=== PATIENT | female | born 1945 | race African-American/Black ===

== ENCOUNTER → 2017-03-19 | Outpatient (CLI) | payer MEDICARE, MEDICAID ==
--- NOTE | 2017-03-19 20:27 | BD ---
EXAMINATION TYPE: MG DEXA axial skeleton. DATE OF EXAM: 03/19/2017 2:50 PM COMPARISON: NONE CLINICAL HISTORY: 71-year-old female age-related osteoporosis Height: 61 Weight: 182.8 FRAX RISK QUESTIONS: Alcohol (3 or more units per day): no Family History (Parent hip fracture): no Glucocorticoids (More than 3mos): no (Ex: prednisone, prednisolone, methylprednisolone, dexamethasone, and hydrocortisone). History of Fracture in Adulthood: yes Secondary Osteoporosis: 1. Type 1 Diabetes: no 2. Hyperthyroidism: no 3. Menopause before 45: yes 4. Malnutrition: no 5. Chronic liver disease: no Rheumatoid Arthritis: no Current Tobacco Use: no RISK FACTORS HISTORY OF: Hip Fracture (Right/Left): no Spine Fracture: no History of Wrist Fracture: no Surgery to Spine/Hip(right/left)/Wrist (right/left): no Family History of Osteoporosis: no Active: yes Diet low in dairy products/other sources of calcium: no Postmenopausal woman: hysterectomy age 33 Lost more than 2 inches in height since high school: no Frequent falls: no Adrenal Insufficiency: no MEDICATIONS: Lanoxin enalapril, atenolol, vasucur, Crestor Additional History: EXAM MEASUREMENTS: Bone mineral densitometry was performed using the [employer] System. Bone mineral density as measured about the Lumbar spine is: ----- L1-L4(G/cm2): 1.530 T Score Values are as follows: ----- L2: 1.7 ----- L3: 3.6 ----- L4: 3.9 ----- L1-L4: 2.9 Bone mineral density has: increased 7.1 % since study of: 02.21.2015 Bone mineral density about the R hip (g/cm2): 1.059 Bone mineral density about the L hip (g/cm2): 1.062 T Score values are as follows: -----R Neck: 0.1 -----L Neck: 0.2 -----R Intertrochanter: -0.2 -----L Intertrochanter: -0.3 Bone mineral density has: decreased -5.2 % since study of: 02.21.2015 IMPRESSION: Normal (Values between +1 and -1 indicate normal bone mass). Rescreen in 5 years. NOTE: T-SCORE=SD OF THE YOUNG ADULT MEAN.
== END | disposition home or self-care (01) ==
LOC: RADBDWWP 14:26
PROVIDERS: ATTEND Internal Medicine Geriatric Medicine
DX: M81.0 Age-related osteoporosis without current pathological fracture (principal)
CPT/HCPCS: 77080

== ENCOUNTER → 2017-07-04 | Outpatient (CLI) | payer MEDICARE, MEDICAID ==
[2017-07-04 13:15] LABS: Basophils # (A) 0.1 k/uL (0-0.2); Basophils % (A) 1 %; CH 28.1; CHCM 31.8; Eosinophils # (A) 0.4 k/uL (0-0.7); Eosinophils % (A) 5 %; HCT 46.5 % (34.0-46.0); HDW 2.66; HGB 14.7 gm/dL (11.4-16.0); Luc # (Auto) 0.16; Luc % (Auto) 2; Lymphocytes # (A) 3.6 k/uL (1.0-4.8); Lymphocytes % (A) 40 %; MCHC 31.6 g/dL (31.0-37.0); MCV 88.8 fL (80.0-100.0); Mean Platelet Volume 7.7; Monocytes # (A) 0.4 k/uL (0-1.0); Monocytes % (A) 4 %; Neutrophils # (A) 4.4 k/uL (1.3-7.7); Neutrophils % (A) 49 %; RBC 5.24 m/uL (3.80-5.40); RDW 14.6 % (11.5-15.5); WBC 8.9 k/uL (3.8-10.6); WBC (Perox) 9.28
[2017-07-04 13:44] LABS: ALT 28 U/L (9-52); AST 21 U/L (14-36); Alkaline Phosphatase 71 U/L (38-126); Anion Gap 10 mmol/L; Blood Urea Nitrogen 15 mg/dL (7-17); Calcium 9.8 mg/dL (8.4-10.2); Carbon Dioxide 28 mmol/L (22-30); Chloride 105 mmol/L (98-107); Cholesterol 152 mg/dL (<200); Glucose 92 mg/dL (74-99); HDL Cholesterol 65 mg/dL (40-60); Hemoglobin A1C 6.1 % (4.2-6.1); Non-African American GFR(MDRD) >60 (>60 ml/min/1.73 sqM); Potassium 4.5 mmol/L (3.5-5.1); Sodium 143 mmol/L (137-145); Total Bilirubin 0.5 mg/dL (0.2-1.3); Total Protein 7.7 g/dL (6.3-8.2)
== END | disposition home or self-care (01) ==
LOC: LABWHC1 12:54
PROVIDERS: ATTEND Internal Medicine Geriatric Medicine
DX: E55.9 Vitamin D deficiency, unspecified (principal); E78.00 Pure hypercholesterolemia, unspecified; R79.9 Abnormal finding of blood chemistry, unspecified; R60.9 Edema, unspecified; K21.9 Gastro-esophageal reflux disease without esophagitis; N18.9 Chronic kidney disease, unspecified
CPT/HCPCS: 36415; 80053; 80061; 82306; 83036; 84439; 84443; 85025

== ENCOUNTER → 2017-08-06 | Outpatient (CLI) | payer MEDICARE, MEDICAID ==
--- NOTE | 2017-08-07 10:34 | MM ---
Reason for exam: screening (asymptomatic). Last mammogram was performed 1 year ago. History: Patient is postmenopausal. Benign left mammotome panel of the left breast, August 15, 2005. Benign left mammotome panel of the left breast, July 14, 2005. Benign stereotactic core biopsy of the left breast, July 08, 2004. Excisional biopsy of the right breast, 1995. Excisional biopsy of the right breast, 1994. Excisional biopsy of the right breast, 1989. Core biopsy of the left breast. Took hormonal contraceptives for 2 years beginning at age 18. MG 3D Screening Mammo W/Cad Bilateral CC and MLO view(s) were taken. Prior study comparison: August 06, 2016, bilateral MG 3d screening mammo w/cad. August 04, 2015, bilateral MG screening mammo w CAD. The breast tissue is heterogeneously dense. This may lower the sensitivity of mammography. There is a 1.3cm mass upper central, slightly outer right breast 6-7cm from nipple for which additional views will be performed. ASSESSMENT: Incomplete: need additional imaging evaluation, BI-RAD 0 RECOMMENDATION: Special view mammogram of the right breast. If lesion persists on supplemental views, image directed ultrasound is recommended. [facility] will attempt to contact patient to return for supplemental views and ultrasound if indicated.
== END | disposition home or self-care (01) ==
LOC: RADMAMWWP 13:45
PROVIDERS: ATTEND Surgery
DX: Z12.31 Encounter for screening mammogram for malignant neoplasm of breast (principal)
CPT/HCPCS: 77063; G0202

== ENCOUNTER → 2017-08-14 | Outpatient (CLI) | payer MEDICARE, MEDICAID ==
--- NOTE | 2017-08-14 13:18 | MM ---
Reason for exam: additional evaluation requested from abnormal screening. Last mammogram was performed less than 1 month ago. History: Patient is postmenopausal. Benign left mammotome panel of the left breast, August 15, 2005. Benign left mammotome panel of the left breast, July 14, 2005. Benign stereotactic core biopsy of the left breast, July 08, 2004. Excisional biopsy of the right breast, 1995. Excisional biopsy of the right breast, 1994. Excisional biopsy of the right breast, 1989. Core biopsy of the left breast. Took hormonal contraceptives for 2 years beginning at age 18. Physical Findings: Nurse did not find any significant physical abnormalities on exam. MG 3D Work Up W/Cad RT Spot compression CC, spot compression MLO, and LM view(s) were taken of the right breast. Prior study comparison: August 06, 2017, bilateral MG 3d screening mammo w/cad. August 06, 2016, bilateral MG 3d screening mammo w/cad. The breast tissue is heterogeneously dense. This may lower the sensitivity of mammography. Finding #1: Architectural distortion in the right breast consistent with previous biopsy. Finding #2: There are typically benign calcifications in the right breast. These results were verbally communicated with the patient and result sheet given to the patient on 08/14/17. ASSESSMENT: Incomplete: need additional imaging evaluation, BI-RAD 0 RECOMMENDATION: Ultrasound of the right breast.
--- NOTE | 2017-08-14 13:22 | USB ---
Reason for exam: additional evaluation requested from abnormal screening. History: Patient is postmenopausal. Benign left mammotome panel of the left breast, August 15, 2005. Benign left mammotome panel of the left breast, July 14, 2005. Benign stereotactic core biopsy of the left breast, July 08, 2004. Excisional biopsy of the right breast, 1995. Excisional biopsy of the right breast, 1994. Excisional biopsy of the right breast, 1989. Core biopsy of the left breast. Took hormonal contraceptives for 2 years beginning at age 18. US Breast Workup Limited RT Right breast ultrasound demonstrates a 11 x 9 x 6mm shadowing solid calcified mass at 12-1 o'clock and a 8 x 7 x 6mm irregular, solid, hypoechoic lesion at 10-11 o'clock, likely scar related, does not account for mass like area on tomosynthesis images, attempt stereo right upper outer quadrant. These results were verbally communicated with the patient and result sheet given to the patient on 08/14/17. ASSESSMENT: Suspicious, BI-RAD 4 RECOMMENDATION: Stereotactic core biopsy of the right breast. Called with mammographic findings and has scheduled an appointment for the patient for 08/17/17 at 2:[address] Edgar. PRELIMINARY REPORT CALLED AND FAXED TO DR. EDGAR ON 08/14/17.
== END ==
LOC: RADMAMWWP 11:03
PROVIDERS: ATTEND Surgery
DX: R92.8 Other abnormal and inconclusive findings on diagnostic imaging of breast (principal)
CPT/HCPCS: 76642; G0206; G0279

== ENCOUNTER → 2017-08-21 | Day surgery (SDC) | payer MEDICARE, MEDICAID ==
[2017-08-21 08:49] VITALS: RESP 12; TEMP 98.3
[2017-08-21 09:54] VITALS: BP 135/81; PULSE 77
--- NOTE | 2017-08-21 11:04 | MM ---
EXAMINATION TYPE: MG stereo VAD BX RT DATE OF EXAM: 08/21/2017 COMPARISON: NONE CLINICAL HISTORY: Personal history of 3 excisional biopsies on the right. TECHNIQUE: Stereotactic guided core biopsy of right breast. FINDINGS: The procedure of stereotactic guided core biopsy was explained to the patient. Benefits, alternatives, and risks were discussed. An informed consent was then obtained. The shortness pathway for biopsy was chosen. Shortness pathway was lateral medial approach. 10 cc of lidocaine without epinephrine was utilized to anesthetize the skin surface. Needle was advanced to the appropriate coordinates. Additional 10 cc of lidocaine with epinephrine was utilized to anesthetize the site of biopsy site after prefire images were obtained. A vacuum assisted biopsy gun was used to obtain 12 core samples. The patient tolerated the procedure well without any immediate complication. The patient was kept in the radiology department for short stay after the procedure and then discharged home in stable condition. Targeted calcifications are identified in specimen mammogram. Post biopsy mammogram shows the clip to appear in satisfactory position relative to the targeted area of concern on the preprocedure images. IMPRESSION: SUCCESSFUL, UNCOMPLICATED STEREOTACTIC GUIDED CORE BIOPSY OF THE LOW SUSPICION AREA OF CONCERN IN THE RIGHT BREAST, FULL PATHOLOGY RESULTS TO FOLLOW. Pathology Results: High Risk BREAST, RIGHT, CORE BIOPSY: FIBROCYSTIC CHANGES INCLUDING RADIAL SCAR/COMPLEX SCLEROSING LESION, FIBROSIS, CHRONIC INFLAMMATION, AND SMALL CYSTS. FOCAL SCAR. Recommendation Surgical consult of the right breast. (radial scar) MTDD
== END ==
LOC: RADMAMWWP 08:27
PROVIDERS: ATTEND Student in an Organized Health Care Education/Training Program
DX: N60.31 Fibrosclerosis of right breast (principal); N60.11 Diffuse cystic mastopathy of right breast; L90.5 Scar conditions and fibrosis of skin; Z88.2 Allergy status to sulfonamides; Z88.8 Allergy status to other drugs, medicaments and biological substances
CPT/HCPCS: 88305; 19081; A4648; J2001

== ENCOUNTER → 2018-09-10 | Outpatient (CLI) | payer MEDICARE, MEDICAID ==
[2018-09-10 11:57] LABS: Basophils # (A) 0.1 k/uL (0-0.2); Basophils % (A) 1 %; Eosinophils # (A) 0.3 k/uL (0-0.7); Eosinophils % (A) 5 %; HGB 13.1 gm/dL (11.4-16.0); Hypochromasia Slight; Lymphocytes # (A) 2.9 k/uL (1.0-4.8); Lymphocytes % (A) 44 %; MCH 28.6 pg (25.0-35.0); MCV 89.4 fL (80.0-100.0); Mean Platelet Volume 6.8; Monocytes # (A) 0.3 k/uL (0-1.0); Monocytes % (A) 4 %; Neutrophils % (A) 45 %; Platelet Count 221 k/uL (150-450); RBC 4.59 m/uL (3.80-5.40); RDW 13.4 % (11.5-15.5); WBC 6.7 k/uL (3.8-10.6)
[2018-09-10 12:25] LABS: ALT 20 U/L (9-52); AST 23 U/L (14-36); Albumin 3.7 g/dL (3.5-5.0); Alkaline Phosphatase 54 U/L (38-126); Anion Gap 6 mmol/L; Blood Urea Nitrogen 10 mg/dL (7-17); Calcium 9.7 mg/dL (8.4-10.2); Carbon Dioxide 28 mmol/L (22-30); Chloride 107 mmol/L (98-107); Cholesterol 145 mg/dL (<200); Glucose 91 mg/dL (74-99); HDL Cholesterol 65 mg/dL (40-60); LDL Cholesterol,Calculated 67 mg/dL (0-99); Potassium 4.5 mmol/L (3.5-5.1); Sodium 141 mmol/L (137-145); Total Bilirubin 0.3 mg/dL (0.2-1.3); Total Protein 7.1 g/dL (6.3-8.2); Triglycerides 65 mg/dL (<150)
[2018-09-10 12:38] LABS: T4, Free (Free Thyroxine) 1.14 ng/dL (0.78-2.19)
== END | disposition home or self-care (01) ==
LOC: LABWHC1 11:04
PROVIDERS: ATTEND Internal Medicine Geriatric Medicine
DX: I42.8 Other cardiomyopathies (principal); E78.00 Pure hypercholesterolemia, unspecified
CPT/HCPCS: 36415; 80053; 80061; 84439; 84443; 85025

== ENCOUNTER → 2018-09-10 | Outpatient (CLI) | payer MEDICARE, MEDICAID ==
--- NOTE | 2018-09-10 11:36 | MM ---
Reason for exam: additional evaluation requested from prior study. Last mammogram was performed 6 months ago. History: Patient is postmenopausal and has history of high-risk lesion on a previous biopsy at age 72. Benign MG pre op needle loc RT of the right breast, September 18, 2017. High risk MG stereo VAD BX RT of the right breast, August 21, 2017. Benign left mammotome panel of the left breast, August 15, 2005. Benign left mammotome panel of the left breast, July 14, 2005. Benign stereotactic core biopsy of the left breast, July 08, 2004. Excisional biopsy of the right breast, 1995. Excisional biopsy of the right breast, 1994. Excisional biopsy of the right breast, 1989. Core biopsy of the left breast. Took hormonal contraceptives for 2 years beginning at age 18. Physical Findings: Nurse Summary: 0.5cm nodule in the left breast at the nipple (nurse dw). MG 3D Diag Mammo W/Cad INDER Bilateral CC and MLO view(s) were taken. Prior study comparison: March 04, 2018, right breast MG 3d diag mammo w/cad RT. August 14, 2017, right breast MG 3d work up w/cad RT. The breast tissue is heterogeneously dense. This may lower the sensitivity of mammography. Stable benign calcifications. Stable post biopsy changes in the right breast. Stable nodularity left retroareolar region since 2011. No significant new findings when compared with previous films. These results were verbally communicated with the patient and result sheet given to the patient on 09/10/18. ASSESSMENT: Benign, BI-RAD 2 RECOMMENDATION: Follow-up diagnostic mammogram of both breasts in 1 year. Manage patient on a clinical basis.
== END | disposition home or self-care (01) ==
LOC: RADMAMWWP 10:05
PROVIDERS: ATTEND Student in an Organized Health Care Education/Training Program
DX: R92.8 Other abnormal and inconclusive findings on diagnostic imaging of breast (principal)
CPT/HCPCS: 77066; G0279; 77062

== ENCOUNTER → 2019-03-14 | Outpatient (CLI) | payer MEDICARE, MEDICAID ==
--- NOTE | 2019-03-14 16:51 | BD ---
EXAMINATION TYPE: Axial Bone Density DATE OF EXAM: 03/14/2019 COMPARISON: NONE CLINICAL HISTORY: Height: 4 FT 11 1/2 IN Weight: 161 FRAX RISK QUESTIONS: History of Fracture in Adulthood: YES Secondary Osteoporosis: 3. Menopause before 45: YES RISK FACTORS HISTORY OF: Surgery to Spine/Hip(right/left)/Wrist (right/left): RT WRIST When: IN THE 80'S Active: YES Postmenopausal woman: PART HYST AGE 33 Lost more than 2 inches in height since high school: YES MEDICATIONS: Additional Medications: LANOXIN,ENALAPRIL, ATENOLOL, CRESTOR, VESICARE,EYE DROPS FOR GLAUCOMA Additional History: EXAM MEASUREMENTS: Bone mineral densitometry was performed using the [employer] System. Bone mineral density as measured about the Lumbar spine is: ----- L1-L4(G/cm2): 1.515 T Score Values are as follows: ----- L2: 1.2 ----- L3: 4.4 ----- L4: 3.3 ----- L1-L4: 2.8 Bone mineral density has: DECREASED -1.1 % since study of: 2017 Bone mineral density about the R hip (g/cm2): 1.033 Bone mineral density about the L hip (g/cm2): 1.012 T Score values are as follows: -----R Neck: 0.0 -----L Neck: -0.2 -----R Total: 0.0 -----L Total: -0.1 Bone mineral density has: DECREASED -5.3 % since study of: 2016 IMPRESSION: Normal (Values between +1 and -1 indicate normal bone mass). Consider repeating this study in 5 year s or sooner if there is some new clinical indication. NOTE: T-SCORE=SD OF THE YOUNG ADULT MEAN.
== END ==
LOC: RADBDWWP 14:16
PROVIDERS: ATTEND Internal Medicine Geriatric Medicine
DX: M81.0 Age-related osteoporosis without current pathological fracture (principal)
CPT/HCPCS: 77080

== ENCOUNTER → 2019-03-22 | Outpatient (CLI) | payer MEDICARE, MEDICAID ==
[2019-03-22 15:34] LABS: Basophils # (A) 0.1 k/uL (0-0.2); Basophils % (A) 1 %; Eosinophils # (A) 0.4 k/uL (0-0.7); Eosinophils % (A) 5 %; HGB 13.9 gm/dL (11.4-16.0); Lymphocytes # (A) 3.2 k/uL (1.0-4.8); Lymphocytes % (A) 43 %; MCH 28.5 pg (25.0-35.0); MCHC 31.7 g/dL (31.0-37.0); MCV 89.8 fL (80.0-100.0); Mean Platelet Volume 7.4; Monocytes # (A) 0.3 k/uL (0-1.0); Monocytes % (A) 5 %; Neutrophils # (A) 3.3 k/uL (1.3-7.7); Neutrophils % (A) 45 %; Platelet Count 220 k/uL (150-450); RDW 14.4 % (11.5-15.5); WBC 7.4 k/uL (3.8-10.6)
[2019-03-22 17:52] LABS: Erythrocyte Sedimentation Rate 23 mm/hr (0-20)
[2019-03-23 01:02] LABS: Albumin 4.4 g/dL (3.80-4.90); Albumin/Globulin Ratio 1.83 (1.60-3.17); Anion Gap 9.6 mmol/L (4.00-12.00); Calcium 9.7 mg/dL (8.7-10.3); Carbon Dioxide 26.4 mmol/L (21.6-31.8); Globulin 2.4 g/dL (1.6-3.3); LDL Cholesterol,Calculated 83.2 mg/dL (0.0-131.0); Potassium 4.4 mmol/L (3.5-5.5); Total Bilirubin 0.5 mg/dL (0.2-1.2); Total Protein 6.8 g/dL (6.2-8.2); VLDL Calculation 13.8 mg/dL (5.00-40.00)
[2019-03-23 01:10] LABS: T4, Free (Free Thyroxine) 1.1 ng/dL (0.80-1.80)
[2019-03-23 01:12] LABS: Hemoglobin A1C 5.7 % (4.0-6.0)
== END ==
LOC: LABWHC1 14:54
PROVIDERS: ATTEND Internal Medicine Geriatric Medicine
DX: Z00.00 Encounter for general adult medical examination without abnormal findings (principal); N18.9 Chronic kidney disease, unspecified; I12.9 Hypertensive chronic kidney disease with stage 1 through stage 4 chronic kidney disease, or unspecified chronic kidney disease; I42.9 Cardiomyopathy, unspecified; R70.0 Elevated erythrocyte sedimentation rate; R79.9 Abnormal finding of blood chemistry, unspecified
CPT/HCPCS: 36415; 80053; 80061; 83036; 84439; 84443; 85025; 85652

== ENCOUNTER → 2019-09-16 | Outpatient (CLI) | payer MEDICARE, MEDICAID ==
--- NOTE | 2019-09-16 13:55 | MM ---
Reason for exam: additional evaluation requested from prior study. Last mammogram was performed 1 year ago. History: Patient is postmenopausal and has history of high-risk lesion on a previous biopsy at age 72. Benign MG pre op needle loc RT of the right breast, September 18, 2017. High risk MG stereo VAD BX RT of the right breast, August 21, 2017. Benign left mammotome panel of the left breast, August 15, 2005. Benign left mammotome panel of the left breast, July 14, 2005. Benign stereotactic core biopsy of the left breast, July 08, 2004. Excisional biopsy of the right breast, 1995. Excisional biopsy of the right breast, 1994. Excisional biopsy of the right breast, 1989. Core biopsy of the left breast. Took hormonal contraceptives for 2 years beginning at age 18. Physical Findings: Nurse did not find any significant physical abnormalities on exam. MG 3D Diag Mammo W/Cad INDER Bilateral CC, MLO, and XCCL view(s) were taken. Prior study comparison: September 10, 2018, bilateral MG 3d diag mammo w/cad INDER. March 04, 2018, right breast MG 3d diag mammo w/cad RT. The breast tissue is heterogeneously dense. This may lower the sensitivity of mammography. Finding #1: Architectural distortion in the upper outer quadrant, posterior middle position of the right breast. Finding #2: There are typically benign round, linear calcifications in the left breast. Previous mammotome biopsy in the left breast x 2. There is no discrete abnormality. These results were verbally communicated with the patient and result sheet given to the patient on 09/16/19. ASSESSMENT: Benign, BI-RAD 2 RECOMMENDATION: Routine screening mammogram of both breasts in 1 year.
== END | disposition home or self-care (01) ==
LOC: RADMAMWWP 12:52
PROVIDERS: ATTEND Student in an Organized Health Care Education/Training Program
DX: R92.8 Other abnormal and inconclusive findings on diagnostic imaging of breast (principal)
CPT/HCPCS: 77066; G0279; 77062

== ENCOUNTER → 2020-09-17 | Outpatient (CLI) | payer MEDICARE, MEDICAID ==
--- NOTE | 2020-09-17 16:20 | XR ---
EXAMINATION TYPE: XR chest 2V DATE OF EXAM: 09/17/2020 COMPARISON: NONE HISTORY: Wheezing. Bronchitis. TECHNIQUE: Frontal and lateral views of the chest are obtained. FINDINGS: There is no focal air space opacity, pleural effusion, or pneumothorax seen. The cardiac silhouette size is upper limits of normal. Metallic anchor right humeral head level is present. IMPRESSION: No suspicious acute pulmonary process.
== END | disposition home or self-care (01) ==
LOC: LABWHC1 15:55
PROVIDERS: ATTEND Internal Medicine Geriatric Medicine
DX: R06.2 Wheezing (principal)
CPT/HCPCS: 71046

== ENCOUNTER → 2020-09-19 | Outpatient (CLI) | payer MEDICARE, MEDICAID ==
--- NOTE | 2020-09-21 12:30 | MM ---
Reason for exam: screening (asymptomatic). Last mammogram was performed 1 year ago. History: Patient is postmenopausal and has history of high-risk lesion on a previous biopsy at age 72. Benign MG pre op needle loc RT of the right breast, September 18, 2017. High risk MG stereo VAD BX RT of the right breast, August 21, 2017. Benign left mammotome panel of the left breast, August 15, 2005. Benign left mammotome panel of the left breast, July 14, 2005. Benign stereotactic core biopsy of the left breast, July 08, 2004. Excisional biopsy of the right breast, 1995. Excisional biopsy of the right breast, 1994. Excisional biopsy of the right breast, 1989. Core biopsy of the left breast. Took hormonal contraceptives for 2 years beginning at age 18. Physical Findings: A clinical breast exam by your physician is recommended on an annual basis and results should be correlated with mammographic findings. MG 3D Screening Mammo W/Cad Bilateral CC and MLO view(s) were taken. Prior study comparison: September 16, 2019, bilateral MG 3d diag mammo w/cad INDER. September 10, 2018, bilateral MG 3d diag mammo w/cad INDER. The breast tissue is heterogeneously dense. This may lower the sensitivity of mammography. Finding #1: Chronic architectural distortion in the left breast. Finding #2: There are calcifications in both breasts. Asymmetric breast tissue post lumpectomy change in the right breast. No significant changes in finding since September 16, 2019 and September 10, 2018. ASSESSMENT: Benign, BI-RAD 2 RECOMMENDATION: Routine screening mammogram of both breasts in 1 year.
== END | disposition home or self-care (01) ==
LOC: RADMAMWWP 09:30
PROVIDERS: ATTEND Student in an Organized Health Care Education/Training Program
DX: Z12.31 Encounter for screening mammogram for malignant neoplasm of breast (principal)
CPT/HCPCS: 77063; 77067

== ENCOUNTER 2020-12-16 13:48 | Emergency (ER) | payer MEDICARE, MEDICAID ==
[2020-12-16] MEDS ORDERED: ONDANSETRON 4 MG/2 ML VIAL IVP STA (14:19)
[2020-12-16] MEDS ORDERED: HYDROmorphone 0.5 MG/0.5 ML SYRINGE IVP STA (14:19)
--- NOTE | 2020-12-16 14:23 | ED ---
URI HPI - General Chief Complaint: Upper Respiratory Infection Stated Complaint: Wheezing, Hx Bronchitis Time Seen by Provider: 12/16/20 14:08 Source: patient Mode of arrival: ambulatory Limitations: no limitations - History of Present Illness Initial Comments: Patient presents the ED complaining of having a cough and wheezing for the past 4 months or so. Patient states that she has seen her primary care doctor (Dr. Pearson) multiple times for these symptoms, and she states that she has been treated with antibiotics, courses of steroids and an inhaler/nebulizer treatments. She states that her cough is intermittently productive, and she states that she is mildly dyspneic at times. 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 She denies having any pain, fever or chills, headache, sore throat, chest pain or pressure, hemoptysis, palpitations, dizziness, nausea/vomiting/diarrhea, abdominal pain, decreased urine output, leg or calf swelling or pain, or any other symptoms or complaints. Patient states that her wheezing/dyspnea does improved with puffs of her albuterol inhaler. - Related Data Home Medications Medication Instructions Recorded Confirmed Enalapril [Vasotec] 5 mg PO DAILY 07/16/14 12/16/20 Multivitamins, Thera [Multivitamin] 1 tab PO DAILY@1200 07/16/14 12/16/20 Rosuvastatin Calcium [Crestor] 5 mg PO DAILY 07/16/14 12/16/20 Solifenacin Succinate [Vesicare] 10 mg PO HS 07/16/14 12/16/20 atenoloL [Tenormin] 25 mg PO BID 07/16/14 12/16/20 Latanoprost Ophth [Xalatan 0.005%] 1 drops BOTH EYES 08/17/17 12/16/20 Henderson-3 Fatty Acids [Henderson-3] 1,000 mg PO DAILY 09/15/17 12/16/20 Albuterol Inhaler [Ventolin Hfa 2 puff INHALATION RT-Q4H PRN 12/16/20 12/16/20 Inhaler] Digoxin [Lanoxin] 125 mcg PO DAILY 12/16/20 12/16/20 Esomeprazole Magnesium [NexIUM] 20 mg PO DAILY 12/16/20 12/16/20 Furosemide [Lasix] 20 mg PO DAILY 12/16/20 12/16/20 Phenylephrine/Dm/Acetaminop/GG 30 ml PO Q12H 12/16/20 12/16/20 [Mucinex Fast-Max Cold-Flu Liq] Previous Rx's Medication Instructions Recorded predniSONE [Deltasone] 20 mg PO BID #10 tab 12/16/20 Allergies Allergy/AdvReac Type Severity Reaction Status Date / Time benzonatate AdvReac Nausea & Verified 12/16/20 15:22 Vomiting dexamethasone AdvReac Nausea & Verified 12/16/20 15:22 Vomiting doxycycline AdvReac Nausea & Verified 12/16/20 15:22 Vomiting pravastatin sodium AdvReac Unknown Verified 12/16/20 15:22 [From Pravachol] Sulfa (Sulfonamide AdvReac Unknown Verified 12/16/20 15:22 Antibiotics) Review of Systems ROS Statement: Those systems with pertinent positive or pertinent negative responses have been documented in the HPI. ROS Other: All systems not noted in ROS Statement are negative. Past Medical History Past Medical History: GERD/Reflux, Osteoarthritis (OA) Additional Past Medical History / Comment(s): cardiomyopathy, elevated heart rate, overactive bladder, glaucoma, hx elevated sed rate,lt knee pain-arthritis and elmore cyst History of Any Multi-Drug Resistant Organisms: None Reported Past Surgical History: Appendectomy, Section, Hysterectomy, Orthopedic Surgery Additional Past Surgical History / Comment(s): 3 left breast biopsies, 3 needle loc on right breast- pt states all benign. lelo rotator cuff repair, lelo. hammer toe and bunionectomy, trigger finger release lelo ring fingers, meniscus repair lelo knees, carpal tunnel lelo, rt thumb fusion, lt ankle surgery, D&C, bilateral cataract surgery and laser surgery Past Anesthesia/Blood Transfusion Reactions: No Reported Reaction Past Psychological History: No Psychological Hx Reported Smoking Status: Former smoker Past Alcohol Use History: None Reported Past Drug Use History: None Reported - Past Family History Mother Family Medical History: No Reported History General Exam Limitations: no limitations General appearance: alert, in no apparent distress Head exam: Present: atraumatic, normocephalic Eye exam: Present: normal appearance, EOMI ENT exam: Present: normal oropharynx, mucous membranes moist Neck exam: Present: other (Trachea is in midline) Respiratory exam: Present: other (Few expiratory wheezes bilaterally; equal breath sounds bilaterally). Absent: respiratory distress, rales, rhonchi, stridor Cardiovascular Exam: Present: regular rate, normal rhythm, normal heart sounds, other (Normal radial pulses bilaterally) GI/Abdominal exam: Present: soft. Absent: distended, tenderness, guarding Extremities exam: Present: other (Negative Homans sign bilaterally). Absent: tenderness, pedal edema, calf tenderness Neurological exam: Present: alert, oriented X3. Absent: motor sensory deficit Psychiatric exam: Present: normal affect, normal mood Skin exam: Present: warm, dry, intact, normal color Course Vital Signs 12/16/20 12/16/20 12/16/20 13:57 14:15 15:19 Temperature 98.8 F Pulse Rate 97 92 Respiratory 18 20 16 Rate Blood Pressure 158/87 O2 Sat by Pulse 96 Oximetry 12/16/20 15:29 Temperature Pulse Rate 93 Respiratory 16 Rate Blood Pressure O2 Sat by Pulse Oximetry - Reevaluation(s) Reevaluation #1: 12/16/20 15:47 Patient's wheezing has improved on examination. Patient remains alert and breathing comfortably with a normal room air oxygen saturation. Patient denies development of any new symptoms while in the ED. Patient is aware of her test results, and she feels comfortable being discharged home at this time. Patient was counseled about wheezing/dyspnea/cough, and she was clearly explained return and follow-up instructions. Patient was instructed to have a low threshold for return to the ED should her symptoms worsen. Patient was instructed to follow up closely with her primary care provider, as well as her lamp shade joiner. Medical Decision Making - Medical Decision Making Patient's Covid test is negative. Patient's chest x-ray is unremarkable. Patient reports having symptoms for the past 4 months or so, and she states that she has been treated with multiple courses of steroids and antibiotics over that time. I think that an infectious etiology is unlikely given the length of the patient's symptoms. Patient was instructed to, and agrees to, follow-up closely with her primary care provider, as well as her lamp shade joiner for further evaluation. Will provide the patient with a prescription for a short course of prednisone given her wheezing on examination today and concern for reactive ai rway disease. Patient was also instructed to continue using her albuterol inhaler as needed/chest prescribed. Patient feels comfortable with this plan. - Lab Data Lab Results 12/16/20 Range/Units 14:43 Coronavirus (PCR) Not Detected (Not Detectd) - EKG Data -: EKG Interpreted by Me EKG Comments: Sinus rhythm with borderline first-degree AV block, ventricular rate of 93 bpm, no ectopy, [place] interval of 208 ms, normal QRS duration, normal QT interval, leftward axis, no ST or T-wave abnormality - Radiology Data Radiology results: image reviewed (Chest x-ray shows no acute cardiopulmonary disease) Disposition Clinical Impression: Wheezing, Dyspnea, Cough Disposition: HOME SELF-CARE Condition: Stable Instructions (If sedation given, give patient instructions): Chronic Cough (ED), Wheezing (ED), Dyspnea (ED) Additional Instructions: Return to the ER immediately should you develop increased shortness of breath, chest pain, a fever, feeling dizzy or faint, or new or worsening symptoms. Follow up closely with your primary care provider, as well as your lamp shade joiner. Prescriptions: predniSONE [Deltasone] 20 mg PO BID #10 tab Is patient prescribed a controlled substance at d/c from ED?: No Referrals: Magnus Pearson MD [Primary Care Provider] - 1-2 days Time of Disposition: 15:49
[2020-12-16] MEDS ORDERED: IPRATROPIUM-ALBUTEROL 3 ML NEB INHALATION STA (14:37)
[2020-12-16] MEDS ORDERED: predniSONE 50 MG TAB PO STA (14:37)
--- NOTE | 2020-12-16 15:33 | XR ---
EXAMINATION TYPE: XR chest 2V DATE OF EXAM: 12/16/2020 COMPARISON: 09/17/2020 HISTORY: Cough. Bronchitis. TECHNIQUE: FINDINGS: Heart and mediastinum are within normal limits. Lungs are clear of infiltrate. There is no heart failure. There are no hilar masses. Costophrenic angles are clear. There are chest leads. IMPRESSION: No active cardiopulmonary disease. Normal heart. No change.
[2020-12-16 16:04] VITALS: BP 155/77; PULSE 91; RESP 18; TEMP 97.9
== END 2020-12-16 16:04 | disposition home or self-care (01) ==
LOC: EC 13:48
DX: R06.2 Wheezing (principal); R05 Cough; R06.00 Dyspnea, unspecified; Z20.822 Contact with and (suspected) exposure to COVID-19; K21.9 Gastro-esophageal reflux disease without esophagitis; Z79.899 Other long term (current) drug therapy; Z88.1 Allergy status to other antibiotic agents; Z88.2 Allergy status to sulfonamides; Z88.8 Allergy status to other drugs, medicaments and biological substances; Z87.891 Personal history of nicotine dependence; Z90.49 Acquired absence of other specified parts of digestive tract; Z90.710 Acquired absence of both cervix and uterus; Z98.42 Cataract extraction status, left eye; Z98.41 Cataract extraction status, right eye
CPT/HCPCS: 94640; 93005; 87635; 71046; 99285; J7512

== ENCOUNTER 2021-01-18 08:55 | Emergency (ER) | payer MEDICARE, MEDICAID ==
--- NOTE | 2021-01-18 09:21 | ED ---
General Adult HPI - General Chief complaint: Arrhythmia/Palpitations Stated complaint: high heart rate Time Seen by Provider: 01/18/21 09:01 Source: patient, RN notes reviewed Mode of arrival: ambulatory Limitations: no limitations - History of Present Illness Initial comments: Patient is a pleasant 75-year-old female presenting to the emergency Department with complaints palpitations. Onset of symptoms was this morning. Patient was started on new inhaler a few days ago. Patient does have history of similar symptoms previously with different inhalers. Usually the only one she can use his albuterol. Patient states with certain on this secondary to bronchitis. Patient states her bronchitis symptoms have resolved. No cough. No dyspnea. No chest pain. No leg pain or leg swelling. Patient states it feels like more her heart is going little bit faster little bit slower at times. Patient states normally her heart rate is 70. Heart rate has been up to 105 at home. - Related Data Home Medications Medication Instructions Recorded Confirmed Enalapril [Vasotec] 5 mg PO DAILY 07/16/14 01/18/21 Multivitamins, Thera [Multivitamin] 1 tab PO BID 07/16/14 01/18/21 Rosuvastatin Calcium [Crestor] 5 mg PO DAILY 07/16/14 01/18/21 Solifenacin Succinate [Vesicare] 10 mg PO HS 07/16/14 01/18/21 atenoloL [Tenormin] 25 mg PO BID 07/16/14 01/18/21 Latanoprost Ophth [Xalatan 0.005%] 1 drops BOTH EYES HS 08/17/17 01/18/21 [place]-3 Fatty Acids [[place]-3] 1,000 mg PO BID 09/15/17 01/18/21 Albuterol Inhaler [Ventolin Hfa 2 puff INHALATION RT-Q4H PRN 12/16/20 01/18/21 Inhaler] Digoxin [Lanoxin] 125 mcg PO DAILY 12/16/20 01/18/21 Esomeprazole Magnesium [NexIUM] 20 mg PO DAILY PRN 12/16/20 01/18/21 Furosemide [Lasix] 20 mg PO DAILY 12/16/20 01/18/21 Fluticasone Propion/Salmeterol 1 puff INHALATION RT-DAILY 01/18/21 01/18/21 [Fluticasone-Salmeterol 500-50] Naproxen Sodium [Aleve] 220 mg PO DAILY PRN 01/18/21 01/18/21 predniSONE See Taper PO DAILY 01/18/21 01/18/21 Allergies Allergy/AdvReac Type Severity Reaction Status Date / Time benzonatate AdvReac Nausea & Verified 01/18/21 09:43 Vomiting dexamethasone AdvReac Nausea & Verified 01/18/21 09:43 Vomiting doxycycline AdvReac Nausea & Verified 01/18/21 09:43 Vomiting pravastatin sodium AdvReac Unknown Verified 01/18/21 09:43 [From Pravachol] Sulfa (Sulfonamide AdvReac Unknown Verified 01/18/21 09:43 Antibiotics) Review of Systems ROS Statement: Those systems with pertinent positive or pertinent negative responses have been documented in the HPI. ROS Other: All systems not noted in ROS Statement are negative. Constitutional: Denies: fever Eyes: Denies: eye pain ENT: Denies: ear pain Respiratory: Reports: as per HPI. Denies: cough Cardiovascular: Reports: as per HPI, palpitations. Denies: chest pain Endocrine: Denies: fatigue Gastrointestinal: Denies: abdominal pain Genitourinary: Denies: dysuria Musculoskeletal: Denies: back pain Skin: Denies: rash Neurological: Denies: weakness Past Medical History Past Medical History: GERD/Reflux, Osteoarthritis (OA) Additional Past Medical History / Comment(s): cardiomyopathy, elevated heart rate, overactive bladder, glaucoma, hx elevated sed rate,lt knee pain-arthritis and elmore cyst History of Any Multi-Drug Resistant Organisms: None Reported Past Surgical History: Appendectomy, Section, Hysterectomy, Orthopedic Surgery Additional Past Surgical History / Comment(s): 3 left breast biopsies, 3 needle loc on right breast- pt states all benign. lelo rotator cuff repair, lelo. hammer toe and bunionectomy, trigger finger release lelo ring fingers, meniscus repair lelo knees, carpal tunnel lelo, rt thumb fusion, lt ankle surgery, D&C, bilateral cataract surgery and laser surgery Past Anesthesia/Blood Transfusion Reactions: No Reported Reaction Past Psychological History: No Psychological Hx Reported Smoking Status: Former smoker Past Alcohol Use History: None Reported Past Drug Use History: None Reported - Past Family History Mother Family Medical History: No Reported History General Exam Limitations: no limitations General appearance: alert, in no apparent distress Head exam: Present: normocephalic Eye exam: Present: normal appearance Neck exam: Present: normal inspection Respiratory exam: Present: normal lung sounds bilaterally Cardiovascular Exam: Present: regular rate, normal rhythm Expanded Peripheral pulses: 2+: Radial (R), Radial (L), Posterior Tibialis (R), Posterior Tibialis (L) GI/Abdominal exam: Present: soft. Absent: tenderness Extremities exam: Present: normal inspection. Absent: pedal edema, calf tenderness Neurological exam: Present: alert Psychiatric exam: Present: normal affect, normal mood Skin exam: Present: normal color Course Vital Signs 01/18/21 01/18/21 01/18/21 08:57 09:28 10:46 Temperature 98 F 98.0 F 98.0 F Pulse Rate 97 84 79 Respiratory 22 16 16 Rate Blood Pressure 184/90 169/86 160/82 O2 Sat by Pulse 98 98 100 Oximetry 01/18/21 12:39 Temperature Pulse Rate 85 Respiratory 18 Rate Blood Pressure 151/76 O2 Sat by Pulse 99 Oximetry EKG Findings - EKG Comments: EKG Findings:: Sinus rhythm with a rate of 92. PVCs present. CT 182. QRS 120. QT 356. QTc 440. Left axis. LVH with repolarization change. Medical Decision Making - Medical Decision Making Patient reevaluated and resting comfortably in bed, improved with Ativan. Patient is comfortable with discharge home. Case was earlier discussed with Dr. Pearson who did evaluate his patient in the emergency department and felt like the patient could go home as well. - Lab Data Result diagrams: 01/18/21 09:27 01/18/21 09:27 Lab Results 01/18/21 01/18/21 01/18/21 Range/Units 09:27 09:27 09:27 WBC 14.0 H (3.8-10.6) k/uL RBC 5.01 (3.80-5.40) m/uL Hgb 14.7 (11.4-16.0) gm/dL Hct 44.3 (34.0-46.0) % MCV 88.5 (80.0-100.0) fL MCH 29.4 (25.0-35.0) pg MCHC 33.2 (31.0-37.0) g/dL RDW 13.1 (11.5-15.5) % Plt Count 339 (150-450) k/uL MPV 6.8 Neutrophils % 69 % Lymphocytes % 24 % Monocytes % 4 % Eosinophils % 1 % Basophils % 0 % Neutrophils # 9.7 H (1.3-7.7) k/uL Lymphocytes # 3.3 (1.0-4.8) k/uL Monocytes # 0.6 (0-1.0) k/uL Eosinophils # 0.2 (0-0.7) k/uL Basophils # 0.1 (0-0.2) k/uL PT 10.1 (9.0-12.0) sec INR 0.9 (<1.2) APTT 20.7 L (22.0-30.0) sec D-Dimer 4.04 H (<0.60) mg/L FEU Sodium 139 (137-145) mmol/L Potassium 4.5 (3.5-5.1) mmol/L Chloride 102 (98-107) mmol/L Carbon Dioxide 27 (22-30) mmol/L Anion Gap 10 mmol/L BUN 19 H (7-17) mg/dL Creatinine 0.72 (0.52-1.04) mg/dL Est GFR (CKD-EPI)AfAm >90 (>60 ml/min/1.73 sqM) Est GFR (CKD-EPI)NonAf 84 (>60 ml/min/1.73 sqM) Glucose 109 H (74-99) mg/dL Calcium 10.2 (8.4-10.2) mg/dL Magnesium 2.0 (1.6-2.3) mg/dL Total Bilirubin 0.4 (0.2-1.3) mg/dL AST 26 (14-36) U/L ALT 19 (4-34) U/L Alkaline Phosphatase 64 (38-126) U/L Troponin I (0.000-0.034) ng/mL Total Protein 8.0 (6.3-8.2) g/dL Albumin 4.3 (3.5-5.0) g/dL TSH 1.250 (0.465-4.680) mIU/L Free T4 1.13 (0.78-2.19) ng/dL Free T3 pg/mL 3.1 (2.8-5.3) pg/ml Digoxin 0.5 ng/mL 01/18/21 Range/Units 09:27 WBC (3.8-10.6) k/uL RBC (3.80-5.40) m/uL Hgb (11.4-16.0) gm/dL Hct (34.0-46.0) % MCV (80.0-100.0) fL MCH (25.0-35.0) pg MCHC (31.0-37.0) g/dL RDW (11.5-15.5) % Plt Count (150-450) k/uL MPV Neutrophils % % Lymphocytes % % Monocytes % % Eosinophils % % Basophils % % Neutrophils # (1.3-7.7) k/uL Lymphocytes # (1.0-4.8) k/uL Monocytes # (0-1.0) k/uL Eosinophils # (0-0.7) k/uL Basophils # (0-0.2) k/uL PT (9.0-12.0) sec INR (<1.2) APTT (22.0-30.0) sec D-Dimer (<0.60) mg/L FEU Sodium (137-145) mmol/L Potassium (3.5-5.1) mmol/L Chloride (98-107) mmol/L Carbon Dioxide (22-30) mmol/L Anion Gap mmol/L BUN (7-17) mg/dL Creatinine (0.52-1.04) mg/dL Est GFR (CKD-EPI)AfAm (>60 ml/min/1.73 sqM) Est GFR (CKD-EPI)NonAf (>60 ml/min/1.73 sqM) Glucose (74-99) mg/dL Calcium (8.4-10.2) mg/dL Magnesium (1.6-2.3) mg/dL Total Bilirubin (0.2-1.3) mg/dL AST (14-36) U/L ALT (4-34) U/L Alkaline Phosphatase (38-126) U/L Troponin I <0.012 (0.000-0.034) ng/mL Total Protein (6.3-8.2) g/dL Albumin (3.5-5.0) g/dL TSH (0.465-4.680) mIU/L Free T4 (0.78-2.19) ng/dL Free T3 pg/mL (2.8-5.3) pg/ml Digoxin ng/mL - Radiology Data Radiology results: image reviewed (Chest x-ray shows no acute process) Disposition Clinical Impression: Palpitations Disposition: HOME SELF-CARE Condition: Stable Instructions (If sedation given, give patient instructions): Heart Palpitations (ED) Additional Instructions: Please follow-up with Dr. Pearson in the next day or 2 for recheck. Please also follow-up with Dr. Swift. Return for difficulty breathing, change in heart rate, pain, fevers, worsening symptoms or other concerns. Is patient prescribed a controlled substance at d/c from ED?: No Referrals: Magnus Pearson MD [Primary Care Provider] - 1-2 days Francisco Swift MD [STAFF PHYSICIAN] - 1-2 days Time of Disposition: 13:38
[2021-01-18 09:38] VITALS: TEMP 98
[2021-01-18 09:38] LABS: Basophils # (A) 0.1 k/uL (0-0.2); Basophils % (A) 0 %; Eosinophils # (A) 0.2 k/uL (0-0.7); Eosinophils % (A) 1 %; HCT 44.3 % (34.0-46.0); HGB 14.7 gm/dL (11.4-16.0); Lymphocytes # (A) 3.3 k/uL (1.0-4.8); Lymphocytes % (A) 24 %; MCH 29.4 pg (25.0-35.0); MCHC 33.2 g/dL (31.0-37.0); MCV 88.5 fL (80.0-100.0); Mean Platelet Volume 6.8; Monocytes # (A) 0.6 k/uL (0-1.0); Monocytes % (A) 4 %; Neutrophils # (A) 9.7 k/uL (1.3-7.7); Neutrophils % (A) 69 %; Platelet Count 339 k/uL (150-450); RBC 5.01 m/uL (3.80-5.40); RDW 13.1 % (11.5-15.5)
[2021-01-18 09:46] LABS: ALT 19 U/L (4-34); AST 26 U/L (14-36); African American GFR (CKD) >90 (>60 ml/min/1.73 sqM); Albumin 4.3 g/dL (3.5-5.0); Alkaline Phosphatase 64 U/L (38-126); Anion Gap 10 mmol/L; Blood Urea Nitrogen 19 mg/dL (7-17); Calcium 10.2 mg/dL (8.4-10.2); Carbon Dioxide 27 mmol/L (22-30); Chloride 102 mmol/L (98-107); Glucose 109 mg/dL (74-99); Non-African American GFR(CKD) 84 (>60 ml/min/1.73 sqM); Potassium 4.5 mmol/L (3.5-5.1); Sodium 139 mmol/L (137-145); Total Bilirubin 0.4 mg/dL (0.2-1.3)
[2021-01-18 09:54] LABS: Digoxin 0.5 ng/mL
--- NOTE | 2021-01-18 09:59 | XR ---
EXAMINATION TYPE: XR chest 1V portable DATE OF EXAM: 01/18/2021 COMPARISON: 12/16/2020 INDICATION: Dysrhythmia TECHNIQUE: Single frontal view of the chest is obtained. FINDINGS: The heart size is mildly prominent. The pulmonary vasculature is normal. The lungs are clear. IMPRESSION: 1. No acute pulmonary process.
[2021-01-18 10:02] LABS: INR 0.9 (<1.2); Prothrombin Time 10.1 sec (9.0-12.0); T4, Free (Free Thyroxine) 1.13 ng/dL (0.78-2.19)
[2021-01-18 10:03] LABS: D-Dimer 4.04 mg/L FEU (<0.60); Partial Thromboplastin Time 20.7 sec (22.0-30.0)
--- NOTE | 2021-01-18 10:31 | CT ---
EXAMINATION TYPE: CT angio chest DATE OF EXAM: 01/18/2021 COMPARISON: None HISTORY: elevated d-dimer, abnormal heart rate CT DLP: 380.3 mGycm CONTRAST: CT chest with contrast and 3D reconstruction with MIP imaging is performed with IV Contrast, patient injected with 100 mL of Isovue 370. Contrast-enhanced CT of the chest was performed through the course of the pulmonary arteries with kelsy g and mediastinal window settings submitted. 3D reconstruction with MIP imaging was also performed. PULMONARY ARTERIES: The pulmonary arteries and their major tributaries are patent. I do not see georgie dence for sizable filling defect to suggest pulmonary embolic process. LUNGS: The lungs are clear and free of infiltrate. Right lower lobe nodule is seen within the posteri or sulcus measuring 9.2 mm. Follow-up chest CT in 3 months is advised. There is linear atelectasis at the left lung base. No pleural effusion. MEDIASTINUM: Thoracic aorta is of normal caliber,however, evaluation is limited given timing of the contrast bolus. If there is concern for thoracic aortic pathology consider MARY. Correlate clinicall y . The heart is not enlarged. No evidence for mediastinal mass. No mediastinal lymph nodes greater than 1cm. HILAR STRUCTURES: No evidence for mass. No hilar lymph nodes greater than 1 cm. UPPER ABDOMEN: No significant abnormality is seen. IMPRESSION: 1. No evidence for Pulmonary embolism at this time. 2.Right lower lobe nodule is seen within the posterior sulcus measuring 9.2 mm. Follow-up chest CT in 3 months is advised. There is linear atelectasis at the left lung base.
[2021-01-18] MEDS ORDERED: LORazepam 1 MG TAB PO STA ×2 (10:57→13:38)
[2021-01-18 12:40] VITALS: RESP 18
[2021-01-18 13:55] VITALS: BP 149/79; PULSE 78
== END 2021-01-18 13:55 | disposition home or self-care (01) ==
LOC: EC 08:55
DX: R00.2 Palpitations (principal); K21.9 Gastro-esophageal reflux disease without esophagitis; M17.12 Unilateral primary osteoarthritis, left knee; Z79.899 Other long term (current) drug therapy; Z88.1 Allergy status to other antibiotic agents; Z88.2 Allergy status to sulfonamides; Z88.8 Allergy status to other drugs, medicaments and biological substances; Z87.891 Personal history of nicotine dependence; Z90.49 Acquired absence of other specified parts of digestive tract; Z90.710 Acquired absence of both cervix and uterus; Z98.42 Cataract extraction status, left eye; Z98.41 Cataract extraction status, right eye
CPT/HCPCS: 36415; 93005; 85379; 84439; 84481; 80053; 80162; 83735; 84443; 84484; 85025; 85610; 85730; 71045; 71275; 99285; Q9967

== ENCOUNTER 2021-01-20 16:54 | Emergency (ER) | payer MEDICARE, MEDICAID ==
[2021-01-20 17:08] VITALS: TEMP 98.9
[2021-01-20] MEDS ORDERED: SODIUM CHLORIDE 0.9% 1,000 ML IV STA (17:18)
[2021-01-20] MEDS ORDERED: LORazepam 2 MG/ML INJ IV STA (17:20)
--- NOTE | 2021-01-20 17:21 | ED ---
Arrhythmia/Palpitations HPI - General Chief Complaint: Arrhythmia/Palpitations Stated Complaint: heart racing Time Seen by Provider: 01/20/21 17:09 Source: patient, RN notes reviewed Mode of arrival: ambulatory Limitations: no limitations - History of Present Illness Initial Comments: Patient is a 75-year-old female that presents to emergency department complaining of palpitations and her heart fluttering. She was just here on 01/18/2021 and was discharged home with some Ativan. She was sent home with diagnosis of palpitations. She did not follow-up primary care yet. She stated that they would not but to more blood pressure cuffs and monitors and stated that they showed her heart rate as being 41 and 50 respectively on both pneumonic monitors. She reported that when she was here her heart rate never dropped below 70 so she is want to come in to make sure everything is okay still. She was informed that the store-bought monitors need to be taken to Dr. leal to be calibrated and check for accuracy. She denied any chest pain shortness of breath headache nausea vomiting diarrhea constipation fever fatigue chills - Related Data Home Medications Medication Instructions Recorded Confirmed Enalapril [Vasotec] 5 mg PO DAILY 07/16/14 01/18/21 Multivitamins, Thera [Multivitamin] 1 tab PO BID 07/16/14 01/18/21 Rosuvastatin Calcium [Crestor] 5 mg PO DAILY 07/16/14 01/18/21 Solifenacin Succinate [Vesicare] 10 mg PO HS 07/16/14 01/18/21 atenoloL [Tenormin] 25 mg PO BID 07/16/14 01/18/21 Latanoprost Ophth [Xalatan 0.005%] 1 drops BOTH EYES HS 08/17/17 01/18/21 [place]-3 Fatty Acids [[place]-3] 1,000 mg PO BID 09/15/17 01/18/21 Albuterol Inhaler [Ventolin Hfa 2 puff INHALATION RT-Q4H PRN 12/16/20 01/18/21 Inhaler] Digoxin [Lanoxin] 125 mcg PO DAILY 12/16/20 01/18/21 Esomeprazole Magnesium [NexIUM] 20 mg PO DAILY PRN 12/16/20 01/18/21 Furosemide [Lasix] 20 mg PO DAILY 12/16/20 01/18/21 Fluticasone Propion/Salmeterol 1 puff INHALATION RT-DAILY 01/18/21 01/18/21 [Fluticasone-Salmeterol 500-50] Naproxen Sodium [Aleve] 220 mg PO DAILY PRN 01/18/21 01/18/21 predniSONE See Taper PO DAILY 01/18/21 01/18/21 Allergies Allergy/AdvReac Type Severity Reaction Status Date / Time benzonatate AdvReac Nausea & Verified 01/20/21 17:08 Vomiting dexamethasone AdvReac Nausea & Verified 01/20/21 17:08 Vomiting doxycycline AdvReac Nausea & Verified 01/20/21 17:08 Vomiting pravastatin sodium AdvReac Unknown Verified 01/20/21 17:08 [From Pravachol] Sulfa (Sulfonamide AdvReac Unknown Verified 01/20/21 17:08 Antibiotics) Review of Systems ROS Statement: Those systems with pertinent positive or pertinent negative responses have been documented in the HPI. ROS Other: All systems not noted in ROS Statement are negative. Past Medical History Past Medical History: GERD/Reflux, Osteoarthritis (OA) Additional Past Medical History / Comment(s): cardiomyopathy, elevated heart rate, overactive bladder, glaucoma, hx elevated sed rate,lt knee pain-arthritis and [place] cyst History of Any Multi-Drug Resistant Organisms: None Reported Past Surgical History: Appendectomy, Section, Hysterectomy, Orthopedic Surgery Additional Past Surgical History / Comment(s): 3 left breast biopsies, 3 needle loc on right breast- pt states all benign. lelo rotator cuff repair, lelo. hammer toe and bunionectomy, trigger finger release lelo ring fingers, meniscus repair lelo knees, carpal tunnel lelo, rt thumb fusion, lt ankle surgery, D&C, bilateral cataract surgery and laser surgery Past Anesthesia/Blood Transfusion Reactions: No Reported Reaction Past Psychological History: No Psychological Hx Reported Smoking Status: Former smoker Past Alcohol Use History: None Reported Past Drug Use History: None Reported - Past Family History Mother Family Medical History: No Reported History General Exam Limitations: no limitations General appearance: alert, in no apparent distress Head exam: Present: atraumatic, normocephalic, normal inspection Eye exam: Present: normal appearance, PERRL, EOMI. Absent: scleral icterus, conjunctival injection, periorbital swelling ENT exam: Present: normal exam, mucous membranes moist Neck exam: Present: normal inspection. Absent: tenderness, meningismus, lymphadenopathy Respiratory exam: Present: normal lung sounds bilaterally. Absent: respiratory distress, wheezes, rales, rhonchi, stridor Cardiovascular Exam: Present: regular rate, normal rhythm, normal heart sounds. Absent: systolic murmur, diastolic murmur, rubs, gallop, clicks GI/Abdominal exam: Present: soft, normal bowel sounds. Absent: distended, tenderness, guarding, rebound, rigid Extremities exam: Present: normal inspection, full ROM, normal capillary refill. Absent: tenderness, pedal edema, joint swelling, calf tenderness Neurological exam: Present: alert, oriented X3, CN II-XII intact Psychiatric exam: Present: normal affect, normal mood Course Vital Signs 01/20/21 17:05 Temperature 98.9 F Pulse Rate 82 Respiratory 20 Rate Blood Pressure 161/82 O2 Sat by Pulse 99 Oximetry Medical Decision Making - Medical Decision Making 75-year-old male complaining of palpitations and heart fluttering. EKG, eap clinician, labs, chest x-ray, 1 L of fluid ordered. Line 1 mg Ativan ordered. Labs unremarkable. Labs and EKG similar to previous studies. Case discussed with Dr. Thompson, decided was located for patient to discharge home. - Lab Data Result diagrams: 01/20/21 17:35 01/20/21 17:35 Lab Results 01/20/21 01/20/21 01/20/21 Range/Units 17:35 17:35 17:35 WBC 11.9 H (3.8-10.6) k/uL RBC 4.99 (3.80-5.40) m/uL Hgb 14.5 (11.4-16.0) gm/dL Hct 44.1 (34.0-46.0) % MCV 88.2 (80.0-100.0) fL MCH 29.0 (25.0-35.0) pg MCHC 32.9 (31.0-37.0) g/dL RDW 13.1 (11.5-15.5) % Plt Count 328 (150-450) k/uL MPV 6.9 Neutrophils % 59 % Lymphocytes % 32 % Monocytes % 5 % Eosinophils % 3 % Basophils % 0 % Neutrophils # 7.0 (1.3-7.7) k/uL Lymphocytes # 3.8 (1.0-4.8) k/uL Monocytes # 0.6 (0-1.0) k/uL Eosinophils # 0.3 (0-0.7) k/uL Basophils # 0.1 (0-0.2) k/uL PT 10.4 (9.0-12.0) sec INR 1.0 (<1.2) APTT 21.4 L (22.0-30.0) sec Sodium 138 (137-145) mmol/L Potassium 4.1 (3.5-5.1) mmol/L Chloride 104 (98-107) mmol/L Carbon Dioxide 25 (22-30) mmol/L Anion Gap 9 mmol/L BUN 16 (7-17) mg/dL Creatinine 0.73 (0.52-1.04) mg/dL Est GFR (CKD-EPI)AfAm >90 (>60 ml/min/1.73 sqM) Est GFR (CKD-EPI)NonAf 82 (>60 ml/min/1.73 sqM) Glucose 102 H (74-99) mg/dL Calcium 9.8 (8.4-10.2) mg/dL Magnesium 1.9 (1.6-2.3) mg/dL Total Bilirubin 0.4 (0.2-1.3) mg/dL AST 25 (14-36) U/L ALT 18 (4-34) U/L Alkaline Phosphatase 64 (38-126) U/L Troponin I (0.000-0.034) ng/mL Total Protein 7.3 (6.3-8.2) g/dL Albumin 4.0 (3.5-5.0) g/dL 01/20/21 Range/Units 17:35 WBC (3.8-10.6) k/uL RBC (3.80-5.40) m/uL Hgb (11.4-16.0) gm/dL Hct (34.0-46.0) % MCV (80.0-100.0) fL MCH (25.0-35.0) pg MCHC (31.0-37.0) g/dL RDW (11.5-15.5) % Plt Count (150-450) k/uL MPV Neutrophils % % Lymphocytes % % Monocytes % % Eosinophils % % Basophils % % Neutrophils # (1.3-7.7) k/uL Lymphocytes # (1.0-4.8) k/uL Monocytes # (0-1.0) k/uL Eosinophils # (0-0.7) k/uL Basophils # (0-0.2) k/uL PT (9.0-12.0) sec INR (<1.2) APTT (22.0-30.0) sec Sodium (137-145) mmol/L Potassium (3.5-5.1) mmol/L Chloride (98-107) mmol/L Carbon Dioxide (22-30) mmol/L Anion Gap mmol/L BUN (7-17) mg/dL Creatinine (0.52-1.04) mg/dL Est GFR (CKD-EPI)AfAm (>60 ml/min/1.73 sqM) Est GFR (CKD-EPI)NonAf (>60 ml/min/1.73 sqM) Glucose (74-99) mg/dL Calcium (8.4-10.2) mg/dL Magnesium (1.6-2.3) mg/dL Total Bilirubin (0.2-1.3) mg/dL AST (14-36) U/L ALT (4-34) U/L Alkaline Phosphatase (38-126) U/L Troponin I <0.012 (0.000-0.034) ng/mL Total Protein (6.3-8.2) g/dL Albumin (3.5-5.0) g/dL - EKG Data -: EKG Interpreted by [place] EKG shows normal: sinus rhythm Rate: normal EKG Comments: Ventricular rate 78 bpm, [place] interval 180 ms, QRS duration 120 ms, QT/QTc 376/4 and platelets ends, PareT axes 52/-34/65. Sinus rhythm with occasional premature ventricular complexes, left axis deviation, left ventricular hypertrophy with QRS widening and repolarization abnormality. Abnormal ECG. - Radiology Data Radiology results: report reviewed, image reviewed Chest x-ray:No active cardiopulmonary disease. No change. Disposition Clinical Impression: Palpitations, Premature ventricular contraction Disposition: HOME SELF-CARE Condition: Stable Instructions (If sedation given, give patient instructions): Heart Palpitations (ED) Additional Instructions: Please return to the Emergency Department if symptoms worsen or any other concerns. Follow-up primary care 1-2 days. Pulse ox at home might not recorded the premature ventricular contractions. Is patient prescribed a controlled substance at d/c from ED?: No Referrals: Magnus Pearson MD [Primary Care Provider] - 1-2 days Time of Disposition: 18:44
[2021-01-20 17:49] LABS: Basophils # (A) 0.1 k/uL (0-0.2); Basophils % (A) 0 %; Eosinophils # (A) 0.3 k/uL (0-0.7); Eosinophils % (A) 3 %; HCT 44.1 % (34.0-46.0); HGB 14.5 gm/dL (11.4-16.0); Lymphocytes # (A) 3.8 k/uL (1.0-4.8); Lymphocytes % (A) 32 %; MCHC 32.9 g/dL (31.0-37.0); MCV 88.2 fL (80.0-100.0); Mean Platelet Volume 6.9; Monocytes # (A) 0.6 k/uL (0-1.0); Monocytes % (A) 5 %; Neutrophils % (A) 59 %; Platelet Count 328 k/uL (150-450); RBC 4.99 m/uL (3.80-5.40); RDW 13.1 % (11.5-15.5); WBC 11.9 k/uL (3.8-10.6)
--- NOTE | 2021-01-20 17:54 | XR ---
EXAMINATION TYPE: XR chest 2V DATE OF EXAM: 01/20/2021 COMPARISON: 01/18/2021 HISTORY: Dysrhythmia TECHNIQUE: FINDINGS: There is no heart failure nor confluent pneumonic infiltrate. Costophrenic angles are clear . Bony thorax is intact. There is minor spurring in the thoracic spine. There are chest leads. IMPRESSION: No active cardiopulmonary disease. No change.
[2021-01-20 17:57] LABS: ALT 18 U/L (4-34); AST 25 U/L (14-36); African American GFR (CKD) >90 (>60 ml/min/1.73 sqM); Alkaline Phosphatase 64 U/L (38-126); Anion Gap 9 mmol/L; Blood Urea Nitrogen 16 mg/dL (7-17); Calcium 9.8 mg/dL (8.4-10.2); Carbon Dioxide 25 mmol/L (22-30); Chloride 104 mmol/L (98-107); Glucose 102 mg/dL (74-99); Magnesium 1.9 mg/dL (1.6-2.3); Non-African American GFR(CKD) 82 (>60 ml/min/1.73 sqM); Potassium 4.1 mmol/L (3.5-5.1); Sodium 138 mmol/L (137-145); Total Bilirubin 0.4 mg/dL (0.2-1.3); Total Protein 7.3 g/dL (6.3-8.2)
[2021-01-20 18:05] LABS: Prothrombin Time 10.4 sec (9.0-12.0)
[2021-01-20 18:07] LABS: Partial Thromboplastin Time 21.4 sec (22.0-30.0)
[2021-01-20 19:21] VITALS: BP 145/73; PULSE 73; RESP 18
== END 2021-01-20 19:29 | disposition home or self-care (01) ==
LOC: EC 16:54
DX: I49.3 Ventricular premature depolarization (principal); R00.2 Palpitations; I42.9 Cardiomyopathy, unspecified; K21.9 Gastro-esophageal reflux disease without esophagitis; Z79.51 Long term (current) use of inhaled steroids; Z79.52 Long term (current) use of systemic steroids; Z87.891 Personal history of nicotine dependence; Z88.1 Allergy status to other antibiotic agents; Z88.2 Allergy status to sulfonamides
CPT/HCPCS: 36415; 71046; 80053; 83735; 84484; 85025; 85610; 85730; 93005; 99285

== ENCOUNTER → 2021-02-15 | Outpatient (CLI) | payer MEDICARE, MEDICAID ==
[2021-02-15 14:29] LABS: African American GFR (CKD) >90 (>60 ml/min/1.73 sqM); Blood Urea Nitrogen 18 mg/dL (7-17); Non-African American GFR(CKD) 79 (>60 ml/min/1.73 sqM)
--- NOTE | 2021-02-15 15:28 | CT ---
EXAMINATION TYPE: CT chest w con DATE OF EXAM: 02/15/2021 COMPARISON: 01/18/2021 HISTORY: Follow up for lung nodule. CT DLP: 281.3 mGycm Automated exposure control for dose reduction was used. CONTRAST: CT scan of the chest is performed with IV Contrast, patient injected with 100ml mL of Isovue 300. FINDINGS: LUNGS: 7.3 mm pulmonary nodule posterior sulcus right lower lobe. Calcified granuloma left lower lobe . No additional nodules seen. No evidence for focal infiltrate. No atelectasis or pleural effusion. P arenchymal scarring within the lingula noted. MEDIASTINUM: There are no greater than 1 cm hilar or mediastinal lymph nodes. No pericardial effusi on is seen. Thoracic aorta is of normal caliber. The heart is not enlarged. UPPER ABDOMEN: There is evidence of hepatic steatosis. OTHER: No additional significant abnormality is seen. IMPRESSION: 1. 7.3 mm right lower lobe pulmonary nodule requires further follow-up in 3-4 months.
== END | disposition home or self-care (01) ==
LOC: RADCTMAIN 13:55
PROVIDERS: ATTEND Internal Medicine Critical Care Medicine
DX: R91.1 Solitary pulmonary nodule (principal)
CPT/HCPCS: 82565; 84520; 71260; 36415; Q9967

== ENCOUNTER 2021-04-15 21:47 | Emergency (ER) | payer MEDICARE, MEDICAID ==
[2021-04-15 21:53] VITALS: BP 146/97; PULSE 99; RESP 18; TEMP 97.7
--- NOTE | 2021-04-15 22:27 | ED ---
General Adult HPI - General Chief complaint: Shortness of Breath Stated complaint: FLORENCIO Time Seen by Provider: 04/15/21 21:56 Source: patient, EMS Mode of arrival: EMS Limitations: no limitations - History of Present Illness Initial comments: 's patient is a 76-year-old woman who presents tonight with a number of complaints. Patient states that the main thing was she was feeling a little bit of exertional dyspnea tonight after she had gone to do laundry. She states that she felt like she was breathing harder than she should've been for the exertion that she did. She tried turning on the air conditioning at her residence and she also used albuterol and states that now her breathing is feeling back to normal. Addition, patient states she is feeling somewhat dehydrated she has not been eating well or taking much oral intake as she is in the process of having dentures made. The patient had been feeling constipated which let her to take an [id number] laxative. She states that after that she had a watery bowel movement (this afternoon ) and she is feeling a little dehydrated since that time. Onset/Timin -: hour(s) Severity scale (1-10): 0 Consistency: now resolved Improves with: medication Worsens with: none Treatments Prior to Arrival: other (Albuterol) - Related Data Home Medications Medication Instructions Recorded Confirmed Enalapril [Vasotec] 5 mg PO DAILY 07/16/14 04/15/21 Multivitamins, Thera [Multivitamin] 1 tab PO BID 07/16/14 04/15/21 Rosuvastatin Calcium [Crestor] 5 mg PO DAILY 07/16/14 04/15/21 Solifenacin Succinate [Vesicare] 10 mg PO HS 07/16/14 04/15/21 atenoloL [Tenormin] 25 mg PO BID 07/16/14 04/15/21 Latanoprost Ophth [Xalatan 0.005%] 1 drops BOTH EYES HS 08/17/17 04/15/21 [place]-3 Fatty Acids [[place]-3] 1,000 mg PO BID 09/15/17 04/15/21 Albuterol Inhaler [Ventolin Hfa 2 puff INHALATION RT-QID PRN 12/16/20 04/15/21 Inhaler] Esomeprazole Magnesium [NexIUM] 20 mg PO DAILY PRN 12/16/20 04/15/21 Furosemide [Lasix] 20 mg PO DAILY 12/16/20 04/15/21 Naproxen Sodium [Aleve] 220 mg PO DAILY PRN 01/18/21 04/15/21 Digoxin 250 mcg PO DAILY 04/15/21 04/15/21 guaiFENesin-DM 600/30MG [Mucinex 1 tab PO BID PRN 04/15/21 04/15/21 Dm] Allergies Allergy/AdvReac Type Severity Reaction Status Date / Time benzonatate AdvReac Nausea & Verified 01/20/21 17:08 Vomiting dexamethasone AdvReac Nausea & Verified 01/20/21 17:08 Vomiting doxycycline AdvReac Nausea & Verified 01/20/21 17:08 Vomiting pravastatin sodium AdvReac Unknown Verified 01/20/21 17:08 [From Pravachol] Sulfa (Sulfonamide AdvReac Unknown Verified 01/20/21 17:08 Antibiotics) Review of Systems ROS Statement: Those systems with pertinent positive or pertinent negative responses have been documented in the HPI. ROS Other: All systems not noted in ROS Statement are negative. Constitutional: Denies: fever, chills, weakness Respiratory: Denies: cough, dyspnea, wheezes, hemoptysis Cardiovascular: Reports: as per HPI, dyspnea on exertion. Denies: chest pain, palpitations, orthopnea, syncope Endocrine: Denies: fatigue Gastrointestinal: Reports: as per HPI, constipation. Denies: abdominal pain, nausea, vomiting, diarrhea, melena, hematochezia Genitourinary: Denies: dysuria, hematuria Musculoskeletal: Denies: back pain Skin: Denies: rash Neurological: Denies: headache, weakness, numbness Psychiatric: Reports: anxiety Past Medical History Past Medical History: GERD/Reflux, Osteoarthritis (OA) Additional Past Medical History / Comment(s): cardiomyopathy, elevated heart rate, overactive bladder, glaucoma, hx elevated sed rate,lt knee pain-arthritis and elmore cyst History of Any Multi-Drug Resistant Organisms: None Reported Past Surgical History: Appendectomy, Section, Hysterectomy, Orthopedic Surgery Additional Past Surgical History / Comment(s): 3 left breast biopsies, 3 needle loc on right breast- pt states all benign. lelo rotator cuff repair, lelo. hammer toe and bunionectomy, trigger finger release lelo ring fingers, meniscus repair lelo knees, carpal tunnel lelo, rt thumb fusion, lt ankle surgery, D&C, bilateral cataract surgery and laser surgery Past Anesthesia/Blood Transfusion Reactions: No Reported Reaction Past Psychological History: No Psychological Hx Reported Smoking Status: Former smoker Past Alcohol Use History: None Reported Past Drug Use History: None Reported - Past Family History Mother Family Medical History: No Reported History General Exam Limitations: no limitations General appearance: alert, in no apparent distress Head exam: Present: normocephalic Eye exam: Present: normal appearance. Absent: scleral icterus, conjunctival injection Neck exam: Present: normal inspection Respiratory exam: Present: normal lung sounds bilaterally. Absent: respiratory distress, wheezes, rales, rhonchi, stridor, accessory muscle use, decreased breath sounds, prolonged expiratory Cardiovascular Exam: Present: regular rate, normal rhythm, normal heart sounds. Absent: systolic murmur, diastolic murmur, rubs, gallop GI/Abdominal exam: Present: soft. Absent: distended, tenderness, guarding, rebound, rigid, mass Extremities exam: Present: normal inspection, normal capillary refill. Absent: pedal edema, calf tenderness Back exam: Present: normal inspection. Absent: CVA tenderness (R), CVA tenderness (L) Neurological exam: Present: alert Skin exam: Present: warm, dry, intact, normal color. Absent: rash Course Vital Signs 04/15/21 04/15/21 21:48 22:30 Temperature 97.7 F Pulse Rate 99 Respiratory 18 18 Rate Blood Pressure 146/97 O2 Sat by Pulse 99 Oximetry EKG Findings - EKG Comments: EKG Findings:: Similar to 01/20/2021 - EKG Results: EKG: interpreted by BROCK, sinus rhythm (Rate 93 bpm) - Blocks, [place], Hypertrophy, ST Abn: AV and intraventricular conduction: 1 AV block QRS axis and voltage: left axis deviation (-30 to -90) Chamber hypertrophy or enlargement: left ventricular hypertrophy or enlargement (LVE) Medical Decision Making - Lab Data Result diagrams: 04/15/21 22:19 04/15/21 22:19 Lab Results 04/15/21 04/15/21 04/15/21 Range/Units 22:19 22:19 22:19 WBC 10.4 (3.8-10.6) k/uL RBC 4.81 (3.80-5.40) m/uL Hgb 14.2 (11.4-16.0) gm/dL Hct 42.5 (34.0-46.0) % MCV 88.3 (80.0-100.0) fL MCH 29.5 (25.0-35.0) pg MCHC 33.5 (31.0-37.0) g/dL RDW 13.4 (11.5-15.5) % Plt Count 154 (150-450) k/uL MPV 8.5 Neutrophils % 63 % Lymphocytes % 25 % Monocytes % 7 % Eosinophils % 3 % Basophils % 0 % Neutrophils # 6.6 (1.3-7.7) k/uL Lymphocytes # 2.7 (1.0-4.8) k/uL Monocytes # 0.7 (0-1.0) k/uL Eosinophils # 0.3 (0-0.7) k/uL Basophils # 0.0 (0-0.2) k/uL Sodium 137 (137-145) mmol/L Potassium 4.3 (3.5-5.1) mmol/L Chloride 104 (98-107) mmol/L Carbon Dioxide 27 (22-30) mmol/L Anion Gap 6 mmol/L BUN 14 (7-17) mg/dL Creatinine 0.72 (0.52-1.04) mg/dL Est GFR (CKD-EPI)AfAm >90 (>60 ml/min/1.73 sqM) Est GFR (CKD-EPI)NonAf 84 (>60 ml/min/1.73 sqM) Glucose 101 H (74-99) mg/dL Calcium 9.7 (8.4-10.2) mg/dL Troponin I <0.012 (0.000-0.034) ng/mL NT-Pro-B Natriuret Pep pg/mL 04/15/21 Range/Units 22:19 WBC (3.8-10.6) k/uL RBC (3.80-5.40) m/uL Hgb (11.4-16.0) gm/dL Hct (34.0-46.0) % MCV (80.0-100.0) fL MCH (25.0-35.0) pg MCHC (31.0-37.0) g/dL RDW (11.5-15.5) % Plt Count (150-450) k/uL MPV Neutrophils % % Lymphocytes % % Monocytes % % Eosinophils % % Basophils % % Neutrophils # (1.3-7.7) k/uL Lymphocytes # (1.0-4.8) k/uL Monocytes # (0-1.0) k/uL Eosinophils # (0-0.7) k/uL Basophils # (0-0.2) k/uL Sodium (137-145) mmol/L Potassium (3.5-5.1) mmol/L Chloride (98-107) mmol/L Carbon Dioxide (22-30) mmol/L Anion Gap mmol/L BUN (7-17) mg/dL Creatinine (0.52-1.04) mg/dL Est GFR (CKD-EPI)AfAm (>60 ml/min/1.73 sqM) Est GFR (CKD-EPI)NonAf (>60 ml/min/1.73 sqM) Glucose (74-99) mg/dL Calcium (8.4-10.2) mg/dL Troponin I (0.000-0.034) ng/mL NT-Pro-B Natriuret Pep 252 pg/mL Disposition Clinical Impression: Dyspnea Disposition: HOME SELF-CARE Condition: Good Instructions (If sedation given, give patient instructions): Bronchospasm (ED) Is patient prescribed a controlled substance at d/c from ED?: No Referrals: Magnus Pearson MD [Primary Care Provider] - 1-2 days
[2021-04-15 22:47] LABS: Basophils % (A) 0 %; Eosinophils # (A) 0.3 k/uL (0-0.7); Eosinophils % (A) 3 %; HCT 42.5 % (34.0-46.0); HGB 14.2 gm/dL (11.4-16.0); Lymphocytes # (A) 2.7 k/uL (1.0-4.8); Lymphocytes % (A) 25 %; MCH 29.5 pg (25.0-35.0); MCHC 33.5 g/dL (31.0-37.0); MCV 88.3 fL (80.0-100.0); Mean Platelet Volume 8.5; Monocytes # (A) 0.7 k/uL (0-1.0); Monocytes % (A) 7 %; Neutrophils # (A) 6.6 k/uL (1.3-7.7); Neutrophils % (A) 63 %; Platelet Count 154 k/uL (150-450); RBC 4.81 m/uL (3.80-5.40); RDW 13.4 % (11.5-15.5); WBC 10.4 k/uL (3.8-10.6)
--- NOTE | 2021-04-15 22:56 | XR ---
EXAMINATION TYPE: XR chest 2V DATE OF EXAM: 04/15/2021 COMPARISON: 01/20/2021 HISTORY: Dysrhythmia TECHNIQUE: 2 views FINDINGS: There is no heart failure nor confluent pneumonic infiltrate. Heart size is normal. There i s slight increased pulmonary markings. There are chest leads. There is no pleural effusion. Bony thor ax is intact. IMPRESSION: Slight increased lung markings compared to old exam. No obvious heart failure.
[2021-04-15 23:06] LABS: African American GFR (CKD) >90 (>60 ml/min/1.73 sqM); Anion Gap 6 mmol/L; Blood Urea Nitrogen 14 mg/dL (7-17); Calcium 9.7 mg/dL (8.4-10.2); Carbon Dioxide 27 mmol/L (22-30); Chloride 104 mmol/L (98-107); Glucose 101 mg/dL (74-99); Non-African American GFR(CKD) 84 (>60 ml/min/1.73 sqM); Potassium 4.3 mmol/L (3.5-5.1); Sodium 137 mmol/L (137-145)
[2021-04-16] MEDS ORDERED: SODIUM CHLORIDE 0.9% 500 ML 500 ML IV ONE (00:45)
== END 2021-04-16 02:06 | disposition home or self-care (01) ==
LOC: EC 21:47
DX: R06.02 Shortness of breath (principal); K21.9 Gastro-esophageal reflux disease without esophagitis; M19.90 Unspecified osteoarthritis, unspecified site; I42.9 Cardiomyopathy, unspecified; Z87.891 Personal history of nicotine dependence
CPT/HCPCS: 36415; 71046; 80048; 83880; 84484; 85025; 93005; 96360; 99285

== ENCOUNTER → 2021-10-01 | Outpatient (CLI) | payer MEDICARE, MEDICAID ==
--- NOTE | 2021-10-03 08:57 | MM ---
Reason for exam: screening (asymptomatic). Last mammogram was performed 1 year ago. History: Patient is postmenopausal and has history of high-risk lesion on a previous biopsy at age 72. Benign MG pre op needle loc RT of the right breast, September 18, 2017. High risk MG stereo VAD BX RT of the right breast, August 21, 2017. Benign left mammotome panel of the left breast, August 15, 2005. Benign left mammotome panel of the left breast, July 14, 2005. Benign stereotactic core biopsy of the left breast, July 08, 2004. Excisional biopsy of the right breast, 1995. Excisional biopsy of the right breast, 1994. Excisional biopsy of the right breast, 1989. Core biopsy of the left breast. Took hormonal contraceptives for 2 years beginning at age 18. Physical Findings: A clinical breast exam by your physician is recommended on an annual basis and results should be correlated with mammographic findings. MG 3D Screening Mammo W/Cad Bilateral CC and MLO view(s) were taken. Prior study comparison: September 19, 2020, bilateral MG 3d screening mammo w/cad. September 16, 2019, bilateral MG 3d diag mammo w/cad INDER. The breast tissue is heterogeneously dense. This may lower the sensitivity of mammography. No significant changes when compared with prior studies. ASSESSMENT: Benign, BI-RAD 2 RECOMMENDATION: Routine screening mammogram of both breasts in 1 year.
== END | disposition home or self-care (01) ==
LOC: RADMAMWWP 07:58
PROVIDERS: ATTEND Student in an Organized Health Care Education/Training Program
DX: Z12.31 Encounter for screening mammogram for malignant neoplasm of breast (principal)
CPT/HCPCS: 77063; 77067

== ENCOUNTER → 2021-10-02 | Outpatient (CLI) | payer MEDICARE, MEDICAID ==
[2021-10-02 14:13] LABS: African American GFR (CKD) >90 (>60 ml/min/1.73 sqM); Blood Urea Nitrogen 17 mg/dL (7-17); Non-African American GFR(CKD) 87 (>60 ml/min/1.73 sqM)
--- NOTE | 2021-10-02 15:50 | CT ---
EXAMINATION TYPE: CT chest w con DATE OF EXAM: 10/02/2021 COMPARISON: CT chest 02/15/2021, CT angiogram of the chest 01/18/2021 HISTORY: h/o lung nodule, f/u CT DLP: 325.6 mGycm Automated exposure control for dose reduction was used. CONTRAST: CT scan of the chest is performed with IV Contrast, patient injected with 100 mL of Isovue 300. FINDINGS: LUNGS: The lungs are stable, 78 mm soft tissue nodule in the posterior costophrenic sulcus is again n oted, calcified nodule present in the left lower lobe as on prior. There is no pleural effusion or pneumothorax seen. The tracheobronchial tree is patent. MEDIASTINUM: There are no greater than 1 cm hilar or mediastinal lymph nodes. No pericardial effusi on is seen. The heart is enlarged. AORTA: No additional significant abnormality is seen. OTHER: Liver shows low attenuation likely due to hepatic steatosis. Thoracic spondylosis is present, there is a spinal curvature. IMPRESSION: Essentially stable exam. Additional follow-up could be performed to assess for stability of right lower lobe pulmonary nodule. Hepatic steatosis and cardiomegaly..
== END | disposition home or self-care (01) ==
LOC: RADCTMAIN 13:19
PROVIDERS: ATTEND Internal Medicine Critical Care Medicine
DX: R91.1 Solitary pulmonary nodule (principal); K76.0 Fatty (change of) liver, not elsewhere classified; I51.7 Cardiomegaly
CPT/HCPCS: 82565; 84520; 71260; 36415; Q9967

== ENCOUNTER → 2021-11-25 | Outpatient (CLI) | payer MEDICARE, MEDICAID ==
[~2021-11-25] MED LIST: BAMLANIVIMAB (EUA) 700 MG, ETESEVIMAB (EUA) 1,400 MG in SODIUM CHLORIDE 0.9% 100 ML IVPB NR; SODIUM CHLORIDE 0.9% 50 ML IVPB ONE; SODIUM CHLORIDE 0.9% 500 ML 500 ML in EMPTY BAG 1 BAG IV PRN
[2021-11-25 13:32] VITALS: RESP 16
[2021-11-25 14:19] VITALS: BP 174/74; PULSE 67; TEMP 97.3
== END ==
LOC: PROCWHC3 13:00
PROVIDERS: ATTEND Internal Medicine Geriatric Medicine
DX: U07.1 COVID-19 (principal); E11.9 Type 2 diabetes mellitus without complications; Z88.2 Allergy status to sulfonamides; Z88.1 Allergy status to other antibiotic agents; Z88.8 Allergy status to other drugs, medicaments and biological substances; Z87.891 Personal history of nicotine dependence
CPT/HCPCS: 96360; J3490; M0245

== ENCOUNTER 2022-03-18 03:47 | Emergency (ER) | payer MEDICARE, MEDICAID ==
[2022-03-18 03:56] VITALS: RESP 18; TEMP 97.9
--- NOTE | 2022-03-18 05:31 | XR ---
EXAMINATION TYPE: XR chest 2V DATE OF EXAM: 03/18/2022 COMPARISON: 04/15/2021 HISTORY: Short of breath. Dyspnea. TECHNIQUE: FINDINGS: There is no heart failure nor confluent pneumonic infiltrate. Costophrenic angles are clear . Bony thorax appears intact. IMPRESSION: No active cardiopulmonary disease. There is improved inspiration compared to old exam.
[2022-03-18 05:35] LABS: Basophils % (A) 0 %; Eosinophils # (A) 0.1 k/uL (0-0.7); Eosinophils % (A) 1 %; HCT 46.5 % (34.0-46.0); HGB 15.2 gm/dL (11.4-16.0); Lymphocytes # (A) 2.4 k/uL (1.0-4.8); Lymphocytes % (A) 21 %; MCH 28.8 pg (25.0-35.0); MCHC 32.6 g/dL (31.0-37.0); MCV 88.5 fL (80.0-100.0); Mean Platelet Volume 6.8; Monocytes # (A) 0.3 k/uL (0-1.0); Monocytes % (A) 3 %; Neutrophils # (A) 8.5 k/uL (1.3-7.7); Neutrophils % (A) 74 %; Platelet Count 307 k/uL (150-450); RBC 5.26 m/uL (3.80-5.40); RDW 14.1 % (11.5-15.5); WBC 11.5 k/uL (3.8-10.6)
[2022-03-18 05:43] LABS: Partial Thromboplastin Time 23.8 sec (22.0-30.0); Prothrombin Time 10.8 sec (9.0-12.0)
[2022-03-18 05:46] LABS: Albumin 4.2 g/dL (3.5-5.0); Calcium 9.8 mg/dL (8.4-10.2); Magnesium 1.9 mg/dL (1.6-2.3); Potassium 4.6 mmol/L (3.5-5.1); Total Bilirubin 0.4 mg/dL (0.2-1.3); Total Protein 7.9 g/dL (6.3-8.2)
[2022-03-18 06:45] VITALS: BP 149/73
--- NOTE | 2022-03-18 07:46 | ED ---
General Adult HPI - General Chief complaint: Arrhythmia/Palpitations Stated complaint: High heart rate Time Seen by Provider: 03/18/22 07:10 Source: patient Mode of arrival: ambulatory Limitations: no limitations - History of Present Illness Initial comments: 76-year-old female with past medical history of cardiomyopathy, elevated heart rate who presents to the emergency room was reported palpitations. Patient has recently been taking Zithromax and prednisone because of her history of chronic bronchitis. Medications were prescribed by her associate genetics professor. She was told that if she had any palpitations while taking the Zithromax that she needed to b e evaluated as she is also on digoxin. Patient reports that last night she began having palpitations. She checked her pulse ox and noted that her heart rate was anywhere between 70 and 104. She denies any chest pain. No fevers, chills or cough. Patient follows with Dr. Swift and Dr. Cottrell. Last stress test was last year. No lower extremity swelling. Patient has been seen in the emergency room previously for palpitations. No other alleviating, precipitating or modifying factors - Related Data Home Medications Medication Instructions Recorded Confirmed Enalapril [Vasotec] 5 mg PO DAILY 07/16/14 04/15/21 Multivitamins, Thera [Multivitamin] 1 tab PO BID 07/16/14 04/15/21 Rosuvastatin Calcium [Crestor] 5 mg PO DAILY 07/16/14 04/15/21 Solifenacin Succinate [Vesicare] 10 mg PO HS 07/16/14 04/15/21 atenoloL [Tenormin] 25 mg PO BID 07/16/14 04/15/21 Latanoprost Ophth [Xalatan 0.005%] 1 drops BOTH EYES HS 08/17/17 04/15/21 [place]-3 Fatty Acids [[place]-3] 1,000 mg PO BID 09/15/17 04/15/21 Albuterol Inhaler [Ventolin Hfa 2 puff INHALATION RT-QID PRN 12/16/20 04/15/21 Inhaler] Esomeprazole Magnesium [NexIUM] 20 mg PO DAILY PRN 12/16/20 04/15/21 Furosemide [Lasix] 20 mg PO DAILY 12/16/20 04/15/21 Naproxen Sodium [Aleve] 220 mg PO DAILY PRN 01/18/21 04/15/21 Digoxin 250 mcg PO DAILY 04/15/21 04/15/21 guaiFENesin-DM 600/30MG [Mucinex 1 tab PO BID PRN 04/15/21 04/15/21 Dm] Allergies Allergy/AdvReac Type Severity Reaction Status Date / Time benzonatate AdvReac Nausea & Verified 03/18/22 03:57 Vomiting dexamethasone AdvReac Nausea & Verified 03/18/22 03:57 Vomiting doxycycline AdvReac Nausea & Verified 03/18/22 03:57 Vomiting pravastatin sodium AdvReac Unknown Verified 03/18/22 03:57 [From Pravachol] Sulfa (Sulfonamide AdvReac Unknown Verified 03/18/22 03:57 Antibiotics) Review of Systems ROS Statement: Those systems with pertinent positive or pertinent negative responses have been documented in the HPI. ROS Other: All systems not noted in ROS Statement are negative. Past Medical History Past Medical History: GERD/Reflux, Osteoarthritis (OA) Additional Past Medical History / Comment(s): cardiomyopathy, elevated heart rate, overactive bladder, glaucoma, hx elevated sed rate,lt knee pain-arthritis and [place] cyst History of Any Multi-Drug Resistant Organisms: None Reported Past Surgical History: Appendectomy, Section, Hysterectomy, Orthopedic Surgery Additional Past Surgical History / Comment(s): 3 left breast biopsies, 3 needle loc on right breast- pt states all benign. lelo rotator cuff repair, lelo. hammer toe and bunionectomy, trigger finger release lelo ring fingers, meniscus repair lelo knees, carpal tunnel lelo, rt thumb fusion, lt ankle surgery, D&C, bilateral cataract surgery and laser surgery Past Anesthesia/Blood Transfusion Reactions: No Reported Reaction Past Psychological History: No Psychological Hx Reported Smoking Status: Former smoker Past Alcohol Use History: None Reported Past Drug Use History: None Reported - Past Family History Mother Family Medical History: No Reported History General Exam Limitations: no limitations General appearance: alert, in no apparent distress Head exam: Present: atraumatic, normocephalic, normal inspection Eye exam: Present: normal appearance, PERRL, EOMI. Absent: scleral icterus, conjunctival injection, periorbital swelling ENT exam: Present: normal exam, mucous membranes moist Neck exam: Present: normal inspection. Absent: tenderness, meningismus, lymphadenopathy Respiratory exam: Present: normal lung sounds bilaterally. Absent: respiratory distress, wheezes, rales, rhonchi, stridor Cardiovascular Exam: Present: regular rate, normal rhythm, normal heart sounds. Absent: systolic murmur, diastolic murmur, rubs, gallop, clicks GI/Abdominal exam: Present: soft, normal bowel sounds. Absent: distended, tenderness, guarding, rebound, rigid Extremities exam: Present: normal inspection, full ROM, normal capillary refill. Absent: tenderness, pedal edema, joint swelling, calf tenderness Back exam: Present: normal inspection Neurological exam: Present: alert, oriented X3, CN II-XII intact Psychiatric exam: Present: normal affect, normal mood Skin exam: Present: warm, dry, intact, normal color. Absent: rash Course Vital Signs 03/18/22 03/18/22 03:51 06:44 Temperature 97.9 F 97.9 F Pulse Rate 76 74 Respiratory 18 18 Rate Blood Pressure 185/84 149/73 O2 Sat by Pulse 99 96 Oximetry EKG Findings - EKG Comments: EKG Findings:: EKG demonstrates sinus rhythm with a rate of 74. DC interval 204. QRS 124. QTC 393. No acute ST segment elevations or depressions Medical Decision Making - Medical Decision Making Arrival patient was placed in room 14. A thorough history of physical exam was performed. Labs had been performed. Chest x-ray demonstrates no acute process. Patient is maintained on the telemetry monitor and has a heart rate between 70 and 80. I did discuss the diagnosis, differential treatment options. Informed the patient that if she has having too many side effects from the medications that she should call Dr. Swift's office and inform him that you're not tolerating the medications. Heart rate has been normal while in the emergency department. QTC within normal range. Patient may additionally benefit from a telemetry monitor. Informed her that she should return for any new or worsening symptoms to include a persistent heart rates above 100. Patient understood thi s. He was given written and verbal discharge instructions and discharged home in stable condition - Lab Data Result diagrams: 03/18/22 05:18 03/18/22 05:18 Lab Results 03/18/22 03/18/22 03/18/22 Range/Units 05:18 05:18 05:18 WBC 11.5 H (3.8-10.6) k/uL RBC 5.26 (3.80-5.40) m/uL Hgb 15.2 (11.4-16.0) gm/dL Hct 46.5 H (34.0-46.0) % MCV 88.5 (80.0-100.0) fL MCH 28.8 (25.0-35.0) pg MCHC 32.6 (31.0-37.0) g/dL RDW 14.1 (11.5-15.5) % Plt Count 307 (150-450) k/uL MPV 6.8 Neutrophils % 74 % Lymphocytes % 21 % Monocytes % 3 % Eosinophils % 1 % Basophils % 0 % Neutrophils # 8.5 H (1.3-7.7) k/uL Lymphocytes # 2.4 (1.0-4.8) k/uL Monocytes # 0.3 (0-1.0) k/uL Eosinophils # 0.1 (0-0.7) k/uL Basophils # 0.0 (0-0.2) k/uL PT 10.8 (9.0-12.0) sec INR 1.0 (<1.2) APTT 23.8 (22.0-30.0) sec Sodium 142 (137-145) mmol/L Potassium 4.6 (3.5-5.1) mmol/L Chloride 105 (98-107) mmol/L Carbon Dioxide 29 (22-30) mmol/L Anion Gap 8 mmol/L BUN 14 (7-17) mg/dL Creatinine 0.77 (0.52-1.04) mg/dL Est GFR (CKD-EPI)AfAm 88 (>60 ml/min/1.73 sqM) Est GFR (CKD-EPI)NonAf 76 (>60 ml/min/1.73 sqM) Glucose 129 H (74-99) mg/dL Calcium 9.8 (8.4-10.2) mg/dL Magnesium 1.9 (1.6-2.3) mg/dL Total Bilirubin 0.4 (0.2-1.3) mg/dL AST 23 (14-36) U/L ALT 19 (4-34) U/L Alkaline Phosphatase 61 (38-126) U/L Troponin I (0.000-0.034) ng/mL Total Protein 7.9 (6.3-8.2) g/dL Albumin 4.2 (3.5-5.0) g/dL Digoxin ng/mL 03/18/22 03/18/22 Range/Units 05:18 05:18 WBC (3.8-10.6) k/uL RBC (3.80-5.40) m/uL Hgb (11.4-16.0) gm/dL Hct (34.0-46.0) % MCV (80.0-100.0) fL MCH (25.0-35.0) pg MCHC (31.0-37.0) g/dL RDW (11.5-15.5) % Plt Count (150-450) k/uL MPV Neutrophils % % Lymphocytes % % Monocytes % % Eosinophils % % Basophils % % Neutrophils # (1.3-7.7) k/uL Lymphocytes # (1.0-4.8) k/uL Monocytes # (0-1.0) k/uL Eosinophils # (0-0.7) k/uL Basophils # (0-0.2) k/uL PT (9.0-12.0) sec INR (<1.2) APTT (22.0-30.0) sec Sodium (137-145) mmol/L Potassium (3.5-5.1) mmol/L Chloride (98-107) mmol/L Carbon Dioxide (22-30) mmol/L Anion Gap mmol/L BUN (7-17) mg/dL Creatinine (0.52-1.04) mg/dL Est GFR (CKD-EPI)AfAm (>60 ml/min/1.73 sqM) Est GFR (CKD-EPI)NonAf (>60 ml/min/1.73 sqM) Glucose (74-99) mg/dL Calcium (8.4-10.2) mg/dL Magnesium (1.6-2.3) mg/dL Total Bilirubin (0.2-1.3) mg/dL AST (14-36) U/L ALT (4-34) U/L Alkaline Phosphatase (38-126) U/L Troponin I <0.012 (0.000-0.034) ng/mL Total Protein (6.3-8.2) g/dL Albumin (3.5-5.0) g/dL Digoxin 1.2 ng/mL Disposition Clinical Impression: Palpitations Disposition: HOME SELF-CARE Condition: Stable Instructions (If sedation given, give patient instructions): Heart Palpitations (ED) Additional Instructions: Please follow-up with your regular care doctor in 2-[address] Swift's office if you few wish to stop the medication. You may benefit from a telemetry monitor. Return to the emergency room for any sustained heart rate above 100. Is patient prescribed a controlled substance at d/c from ED?: No Referrals: Magnus Pearson MD [Primary Care Provider] - 1-2 days Francisco Swift MD [STAFF PHYSICIAN] - 1-2 days Time of Disposition: 07:45
[2022-03-18 08:26] VITALS: PULSE 78
== END 2022-03-18 08:38 | disposition home or self-care (01) ==
LOC: EC 03:47
DX: R00.2 Palpitations (principal); K21.9 Gastro-esophageal reflux disease without esophagitis; M19.90 Unspecified osteoarthritis, unspecified site; Z88.1 Allergy status to other antibiotic agents; Z88.2 Allergy status to sulfonamides; Z90.49 Acquired absence of other specified parts of digestive tract; Z90.710 Acquired absence of both cervix and uterus; Z87.891 Personal history of nicotine dependence
CPT/HCPCS: 36415; 71046; 80053; 80162; 83735; 84484; 85025; 85610; 85730; 93005; 99285

== ENCOUNTER → 2022-04-25 | Outpatient (CLI) | payer MEDICARE, MEDICAID ==
[2022-04-25 11:44] LABS: Immunoglobulin E 17.2 IU/mL (0.00-114.00)
[2022-04-25 13:44] LABS: IgG Subclass 1 590.4 mg/dL (382.40-928.60); IgG Subclass 2 258.1 mg/dL (241.80-700.30); IgG Subclass 3 106.8 mg/dL (21.82-176.00); IgG Subclass 4 22.5 mg/dL (3.92-86.40)
[2022-04-25 14:04] LABS: Alternaria alternata IgE <0.10 kU/L; Aspergillus fumagatus IgE <0.10 kU/L; Birch IgE <0.10 kU/L; Cladosporian herbarum IgE <0.10 kU/L; Cockroach IgE <0.10 kU/L; Elm IgE <0.10 kU/L; Maple (Box Elder) IgE <0.10 kU/L; Oak IgE <0.10 kU/L; Ragweed,Common IgE <0.10 kU/L; Red Top (Bentgrass) IgE <0.10 kU/L
[2022-04-26 00:05] LABS: Cat Epith & Dander IgE <0.10 kU/L; Dermato. farinae IgE <0.10 kU/L; Dog Dander IgE <0.10 kU/L
== END | disposition home or self-care (01) ==
LOC: LABWHC1 04-24 13:45
PROVIDERS: ATTEND Internal Medicine Critical Care Medicine
DX: J45.40 Moderate persistent asthma, uncomplicated (principal)
CPT/HCPCS: 36415; 82785; 82787; 85008; 86003

== ENCOUNTER 2022-05-12 07:52 | Emergency (ER) | payer MEDICARE, MEDICAID ==
[2022-05-12 07:56] VITALS: BP 164/78; TEMP 98.4
[2022-05-12 08:05] VITALS: RESP 18
[2022-05-12] MEDS ORDERED: ALBUTEROL NEBULIZED 2.5 MG/3 ML INHALATION STA (08:06)
[2022-05-12] MEDS ORDERED: predniSONE 20 MG TAB PO STA (08:06)
[2022-05-12 08:33] LABS: Basophils % (A) 1 %; Eosinophils # (A) 0.4 k/uL (0-0.7); Eosinophils % (A) 6 %; HCT 42.3 % (34.0-46.0); HGB 13.9 gm/dL (11.4-16.0); Lymphocytes # (A) 2.4 k/uL (1.0-4.8); Lymphocytes % (A) 34 %; MCH 29.4 pg (25.0-35.0); MCHC 32.8 g/dL (31.0-37.0); MCV 89.5 fL (80.0-100.0); Mean Platelet Volume 7.1; Monocytes # (A) 0.3 k/uL (0-1.0); Monocytes % (A) 4 %; Neutrophils # (A) 3.6 k/uL (1.3-7.7); Neutrophils % (A) 52 %; Platelet Count 206 k/uL (150-450); RBC 4.72 m/uL (3.80-5.40); RDW 13.8 % (11.5-15.5); WBC 6.9 k/uL (3.8-10.6)
--- NOTE | 2022-05-12 08:39 | ED ---
General Adult HPI - General Chief complaint: Shortness of Breath Stated complaint: SOB Time Seen by Provider: 05/12/22 07:58 Source: patient, RN notes reviewed, old records reviewed Mode of arrival: ambulatory Limitations: no limitations - History of Present Illness Initial comments: 77-year-old female with recent diagnosis of asthma, currently being evaluated and treated by both pulmonology and her primary care physician presents or evaluation of cough, dyspnea, wheezing. Symptoms began yesterday morning after trial of a new inhaled steroid. Patient states her symptoms remained throughout the day and were only partially improved with albuterol. She states that in the past oral steroids have improved the symptoms. She has no central chest pain, no fever. 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 - Related Data Home Medications Medication Instructions Recorded Confirmed Enalapril [Vasotec] 5 mg PO DAILY 07/16/14 05/12/22 Rosuvastatin Calcium [Crestor] 5 mg PO DAILY 07/16/14 05/12/22 Solifenacin Succinate [Vesicare] 10 mg PO HS 07/16/14 05/12/22 atenoloL [Tenormin] 25 mg PO BID 07/16/14 05/12/22 Latanoprost Ophth [Xalatan 0.005%] 1 drops BOTH EYES HS 08/17/17 05/12/22 Albuterol Inhaler [Ventolin Hfa 2 puff INHALATION RT-QID PRN 12/16/20 05/12/22 Inhaler] Furosemide [Lasix] 20 mg PO MOWEFR 12/16/20 05/12/22 Digoxin 250 mcg PO DAILY 04/15/21 05/12/22 Budesonide 0.5 mg INHALATION RT-BID 05/12/22 05/12/22 Cetirizine HCl [Zyrtec] 10 mg PO DAILY PRN 05/12/22 05/12/22 Meclizine [Antivert] 12.5 mg PO TID PRN 05/12/22 05/12/22 Naproxen Sodium [Aleve] 220 mg PO DAILY PRN 05/12/22 05/12/22 Sennosides [Senokot] 8.6 mg PO DAILY 05/12/22 05/12/22 Previous Rx's Medication Instructions Recorded predniSONE 50 mg PO DAILY #5 tab 05/12/22 Allergies Allergy/AdvReac Type Severity Reaction Status Date / Time benzonatate AdvReac Nausea & Verified 05/12/22 09:26 Vomiting dexamethasone AdvReac Nausea & Verified 05/12/22 09:26 Vomiting doxycycline AdvReac Nausea & Verified 05/12/22 09:26 Vomiting pravastatin sodium AdvReac Unknown Verified 05/12/22 09:26 [From Pravachol] Sulfa (Sulfonamide AdvReac Unknown Verified 05/12/22 09:26 Antibiotics) Review of Systems ROS Statement: Those systems with pertinent positive or pertinent negative responses have been documented in the HPI. ROS Other: All systems not noted in ROS Statement are negative. Past Medical History Past Medical History: GERD/Reflux, Osteoarthritis (OA) Additional Past Medical History / Comment(s): cardiomyopathy, elevated heart rate, overactive bladder, glaucoma, hx elevated sed rate,lt knee pain-arthritis and elmore cyst History of Any Multi-Drug Resistant Organisms: None Reported Past Surgical History: Appendectomy, Section, Hysterectomy, Orthopedic Surgery Additional Past Surgical History / Comment(s): 3 left breast biopsies, 3 needle loc on right breast- pt states all benign. lelo rotator cuff repair, lelo. hammer toe and bunionectomy, trigger finger release lelo ring fingers, meniscus repair lelo knees, carpal tunnel lelo, rt thumb fusion, lt ankle surgery, D&C, bilateral cataract surgery and laser surgery Past Anesthesia/Blood Transfusion Reactions: No Reported Reaction Past Psychological History: No Psychological Hx Reported Smoking Status: Former smoker Past Alcohol Use History: None Reported Past Drug Use History: None Reported - Past Family History Mother Family Medical History: No Reported History General Exam Limitations: no limitations General appearance: alert, in no apparent distress Head exam: Present: atraumatic, normocephalic Eye exam: Present: normal appearance, PERRL ENT exam: Present: normal exam Neck exam: Present: normal inspection. Absent: tenderness, meningismus Respiratory exam: Present: wheezes. Absent: respiratory distress, accessory muscle use Cardiovascular Exam: Present: regular rate, normal rhythm GI/Abdominal exam: Present: soft. Absent: distended, tenderness, guarding Extremities exam: Present: normal inspection, normal capillary refill Neurological exam: Present: alert, oriented X3, CN II-XII intact. Absent: motor sensory deficit Psychiatric exam: Present: normal affect, normal mood Skin exam: Present: warm, dry, intact. Absent: cyanosis, diaphoretic Course Vital Signs 05/12/22 05/12/22 05/12/22 07:52 08:01 08:52 Temperature 98.4 F Pulse Rate 88 86 Respiratory 20 18 Rate Blood Pressure 164/78 O2 Sat by Pulse 99 Oximetry 05/12/22 09:09 Temperature Pulse Rate 84 Respiratory Rate Blood Pressure O2 Sat by Pulse Oximetry EKG Findings - EKG Comments: EKG Findings:: EKG: Sinus rhythm with first-degree AV block left atrial enlargement left axis LVH rate of 87, CO interval 216, QRS duration 114, QTC [address] segment elevation. Medical Decision Making - Medical Decision Making 77-year-old female recent diagnosis of asthma presents with cough and wheezing. She is well-appearing stable vitals, normal oxygenation, no respiratory distress, she is able speak in full sentences. She does have bilateral wheezing. Workup is initiated and [place] laboratory testing and chest x-ray. Testing is unremarkable in the emergency department. She will be placed on a short course of steroids and should follow up both with her primary care physician and her electronic publisher. - Lab Data Result diagrams: 05/12/22 08:19 05/12/22 08:19 Lab Results 05/12/22 05/12/22 05/12/22 Range/Units 08:19 08:19 08:19 WBC 6.9 (3.8-10.6) k/uL RBC 4.72 (3.80-5.40) m/uL Hgb 13.9 (11.4-16.0) gm/dL Hct 42.3 (34.0-46.0) % MCV 89.5 (80.0-100.0) fL MCH 29.4 (25.0-35.0) pg MCHC 32.8 (31.0-37.0) g/dL RDW 13.8 (11.5-15.5) % Plt Count 206 (150-450) k/uL MPV 7.1 Neutrophils % 52 % Lymphocytes % 34 % Monocytes % 4 % Eosinophils % 6 % Basophils % 1 % Neutrophils # 3.6 (1.3-7.7) k/uL Lymphocytes # 2.4 (1.0-4.8) k/uL Monocytes # 0.3 (0-1.0) k/uL Eosinophils # 0.4 (0-0.7) k/uL Basophils # 0.0 (0-0.2) k/uL PT 10.2 (9.0-12.0) sec INR 0.9 (<1.2) APTT 22.6 (22.0-30.0) sec Sodium 139 (137-145) mmol/L Potassium 3.9 (3.5-5.1) mmol/L Chloride 104 (98-107) mmol/L Carbon Dioxide 26 (22-30) mmol/L Anion Gap 9 mmol/L BUN 10 (7-17) mg/dL Creatinine 0.68 (0.52-1.04) mg/dL Est GFR (CKD-EPI)AfAm >90 (>60 ml/min/1.73 sqM) Est GFR (CKD-EPI)NonAf 86 (>60 ml/min/1.73 sqM) Glucose 129 H (74-99) mg/dL Calcium 9.1 (8.4-10.2) mg/dL Magnesium 1.7 (1.6-2.3) mg/dL Total Bilirubin 0.3 (0.2-1.3) mg/dL AST 23 (14-36) U/L ALT 15 (4-34) U/L Alkaline Phosphatase 54 (38-126) U/L Troponin I (0.000-0.034) ng/mL NT-Pro-B Natriuret Pep pg/mL Total Protein 7.0 (6.3-8.2) g/dL Albumin 3.8 (3.5-5.0) g/dL 05/12/22 05/12/22 Range/Units 08:19 08:19 WBC (3.8-10.6) k/uL RBC (3.80-5.40) m/uL Hgb (11.4-16.0) gm/dL Hct (34.0-46.0) % MCV (80.0-100.0) fL MCH (25.0-35.0) pg MCHC (31.0-37.0) g/dL RDW (11.5-15.5) % Plt Count (150-450) k/uL MPV Neutrophils % % Lymphocytes % % Monocytes % % Eosinophils % % Basophils % % Neutrophils # (1.3-7.7) k/uL Lymphocytes # (1.0-4.8) k/uL Monocytes # (0-1.0) k/uL Eosinophils # (0-0.7) k/uL Basophils # (0-0.2) k/uL PT (9.0-12.0) sec INR (<1.2) APTT (22.0-30.0) sec Sodium (137-145) mmol/L Potassium (3.5-5.1) mmol/L Chloride (98-107) mmol/L Carbon Dioxide (22-30) mmol/L Anion Gap mmol/L BUN (7-17) mg/dL Creatinine (0.52-1.04) mg/dL Est GFR (CKD-EPI)AfAm (>60 ml/min/1.73 sqM) Est GFR (CKD-EPI)NonAf (>60 ml/min/1.73 sqM) Glucose (74-99) mg/dL Calcium (8.4-10.2) mg/dL Magnesium (1.6-2.3) mg/dL Total Bilirubin (0.2-1.3) mg/dL AST (14-36) U/L ALT (4-34) U/L Alkaline Phosphatase (38-126) U/L Troponin I <0.012 (0.000-0.034) ng/mL NT-Pro-B Natriuret Pep 158 pg/mL Total Protein (6.3-8.2) g/dL Albumin (3.5-5.0) g/dL Disposition Clinical Impression: Asthma with acute exacerbation Disposition: HOME SELF-CARE Condition: Fair Instructions (If sedation given, give patient instructions): Asthma (ED) Prescriptions: predniSONE 50 mg PO DAILY #5 tab Is patient prescribed a controlled substance at d/c from ED?: No Referrals: Magnus Pearson MD [Primary Care Provider] - 1-2 days Francisco Swift MD [STAFF PHYSICIAN] - 1-2 days Time of Disposition: 09:54
[2022-05-12 08:43] LABS: INR 0.9 (<1.2); Partial Thromboplastin Time 22.6 sec (22.0-30.0); Prothrombin Time 10.2 sec (9.0-12.0)
[2022-05-12 08:44] LABS: ALT 15 U/L (4-34); AST 23 U/L (14-36); African American GFR (CKD) >90 (>60 ml/min/1.73 sqM); Albumin 3.8 g/dL (3.5-5.0); Alkaline Phosphatase 54 U/L (38-126); Anion Gap 9 mmol/L; Blood Urea Nitrogen 10 mg/dL (7-17); Calcium 9.1 mg/dL (8.4-10.2); Carbon Dioxide 26 mmol/L (22-30); Chloride 104 mmol/L (98-107); Glucose 129 mg/dL (74-99); Magnesium 1.7 mg/dL (1.6-2.3); Non-African American GFR(CKD) 86 (>60 ml/min/1.73 sqM); Potassium 3.9 mmol/L (3.5-5.1); Sodium 139 mmol/L (137-145); Total Bilirubin 0.3 mg/dL (0.2-1.3)
[2022-05-12] MEDS: IPRATROPIUM 0.5 MG/2.5 ML NEBU INHALATION STA ×2 (08:52→09:03)
[2022-05-12 09:09] VITALS: PULSE 84
--- NOTE | 2022-05-12 09:14 | XR ---
EXAMINATION TYPE: XR chest 2V DATE OF EXAM: 05/12/2022 COMPARISON: 03/18/2022 INDICATION: Difficulty breathing TECHNIQUE: Frontal and lateral views of the chest are obtained. FINDINGS: The heart size is normal. The pulmonary vasculature is normal. Punctate density may be near the cardiac apex, present previously. No suspicious infiltrates. IMPRESSION: 1. No acute pulmonary process.
== END 2022-05-12 10:13 | disposition home or self-care (01) ==
LOC: EC 07:52
DX: J45.901 Unspecified asthma with (acute) exacerbation (principal); Z88.2 Allergy status to sulfonamides; Z87.891 Personal history of nicotine dependence; K21.9 Gastro-esophageal reflux disease without esophagitis; Z88.6 Allergy status to analgesic agent; Z88.8 Allergy status to other drugs, medicaments and biological substances; Z88.5 Allergy status to narcotic agent
CPT/HCPCS: 36415; 94640; 93005; 83880; 80053; 83735; 84484; 85025; 85610; 85730; 71046; 99285; J7512

== ENCOUNTER 2022-06-08 07:34 | Emergency (ER) | payer MEDICARE, MEDICAID ==
[2022-06-08 07:41] VITALS: TEMP 98.1
[2022-06-08] MEDS ORDERED: methylPREDNISolone SOD SUCCI 125 MG/2 ML VIAL IV STA (07:52)
[2022-06-08] MEDS ORDERED: IPRATROPIUM 0.5 MG/2.5 ML NEBU INHALATION STA (07:52)
[2022-06-08] MEDS ORDERED: ALBUTEROL NEBULIZED 2.5 MG/3 ML INHALATION STA (07:52)
--- NOTE | 2022-06-08 07:55 | ED ---
General Adult HPI - General Chief complaint: Shortness of Breath Stated complaint: FLORENCIO Time Seen by Provider: 06/08/22 07:40 Source: patient, RN notes reviewed, old records reviewed Mode of arrival: ambulatory Limitations: no limitations - History of Present Illness Initial comments: This is a 77-year-old female with a past medical history significant for asthma. Patient states she was recently in the hospital emergency room and was treated for her asthma she was then followed up with Dr. Swift. Patient states she was put on steroids and put on a tapering dose and while she was on and she felt good. Patient states about a week ago her air-conditioning went out her house and since then her breathing is become worse and has gotten considerably worse over the last couple of days per patient also states she has a little more swelling in her feet than normal. Patient denies any abdominal pain. Patient denies any recent fever chills or cough. Patient denies any chest pain or palpitations. - Related Data Home Medications Medication Instructions Recorded Confirmed Enalapril [Vasotec] 5 mg PO DAILY 07/16/14 05/12/22 Rosuvastatin Calcium [Crestor] 5 mg PO DAILY 07/16/14 05/12/22 Solifenacin Succinate [Vesicare] 10 mg PO HS 07/16/14 05/12/22 atenoloL [Tenormin] 25 mg PO BID 07/16/14 05/12/22 Latanoprost Ophth [Xalatan 0.005%] 1 drops BOTH EYES HS 08/17/17 05/12/22 Albuterol Inhaler [Ventolin Hfa 2 puff INHALATION RT-QID PRN 12/16/20 05/12/22 Inhaler] Furosemide [Lasix] 20 mg PO MOWEFR 12/16/20 05/12/22 Digoxin 250 mcg PO DAILY 04/15/21 05/12/22 Budesonide 0.5 mg INHALATION RT-BID 05/12/22 05/12/22 Cetirizine HCl [Zyrtec] 10 mg PO DAILY PRN 05/12/22 05/12/22 Meclizine [Antivert] 12.5 mg PO TID PRN 05/12/22 05/12/22 Naproxen Sodium [Aleve] 220 mg PO DAILY PRN 05/12/22 05/12/22 Sennosides [Senokot] 8.6 mg PO DAILY 05/12/22 05/12/22 Previous Rx's Medication Instructions Recorded predniSONE 50 mg PO DAILY #5 tab 05/12/22 predniSONE [Deltasone] 40 mg PO DAILY #8 tab 06/08/22 Allergies Allergy/AdvReac Type Severity Reaction Status Date / Time benzonatate AdvReac Nausea & Verified 06/08/22 07:41 Vomiting dexamethasone AdvReac Nausea & Verified 06/08/22 07:41 Vomiting doxycycline AdvReac Nausea & Verified 06/08/22 07:41 Vomiting pravastatin sodium AdvReac Unknown Verified 06/08/22 07:41 [From Pravachol] Sulfa (Sulfonamide AdvReac Unknown Verified 06/08/22 07:41 Antibiotics) Review of Systems ROS Statement: Those systems with pertinent positive or pertinent negative responses have been documented in the HPI. ROS Other: All systems not noted in ROS Statement are negative. Past Medical History Past Medical History: Asthma, GERD/Reflux, Osteoarthritis (OA) Additional Past Medical History / Comment(s): cardiomyopathy, elevated heart rate, overactive bladder, glaucoma, hx elevated sed rate,lt knee pain-arthritis and [place] cyst History of Any Multi-Drug Resistant Organisms: None Reported Past Surgical History: Appendectomy, Section, Hysterectomy, Orthopedic Surgery Additional Past Surgical History / Comment(s): 3 left breast biopsies, 3 needle loc on right breast- pt states all benign. lelo rotator cuff repair, lelo. hammer toe and bunionectomy, trigger finger release lelo ring fingers, meniscus repair lelo knees, carpal tunnel lelo, rt thumb fusion, lt ankle surgery, D&C, bilateral cataract surgery and laser surgery Past Anesthesia/Blood Transfusion Reactions: No Reported Reaction Past Psychological History: No Psychological Hx Reported Smoking Status: Former smoker Past Alcohol Use History: None Reported Past Drug Use History: None Reported - Past Family History Mother Family Medical History: No Reported History General Exam - General Exam Comments Initial Comments: GENERAL: Patient is well-developed and well-nourished. Patient is nontoxic and well-hydrated and is in mild distress. ENT: Neck is soft and supple. No significant lymphadenopathy is noted. Oropharynx is clear. Moist mucous membranes. Neck has full range of motion without eliciting any pain. EYES: The sclera were anicteric and conjunctiva were pink and moist. Extraocular movements were intact and pupils were equal round and reactive to light. Eyelids were unremarkable. PULMONARY: Diffuse expiratory wheezing CARDIOVASCULAR: There is a regular rate and rhythm without any murmurs gallops or rubs. ABDOMEN: Soft and nontender with normal bowel sounds. SKIN: Skin is clear with no lesions or rashes and otherwise unremarkable. NEUROLOGIC: Patient is alert and oriented x3. Cranial nerves II through XII are grossly intact. Motor and sensory are also intact. Normal speech, volume and content. Symmetrical smile. MUSCULOSKELETAL: Normal extremities with adequate strength and full range of motion. Minimal edema left slightly larger than right. No calf tenderness LYMPHATICS: No significant lymphadenopathy is noted PSYCHIATRIC: Normal psychiatric evaluation. Limitations: no limitations Course Vital Signs 06/08/22 06/08/22 06/08/22 07:36 08:21 08:31 Temperature 98.1 F Pulse Rate 88 84 84 Respiratory 19 18 18 Rate Blood Pressure 152/70 143/62 O2 Sat by Pulse 99 99 Oximetry 06/08/22 06/08/22 08:40 09:56 Temperature Pulse Rate 88 96 Respiratory 18 18 Rate Blood Pressure 135/67 O2 Sat by Pulse 97 Oximetry Medical Decision Making - Medical Decision Making EKG shows sinus rhythm [address] interval is 208 QRSs 116 QT interval 359 QTC is 402. Patient's EKG shows no ST segment elevation or depression Patient's chest x-ray showed no acute abnormality. Patient's CT showed no pulmonary embolism. Patient received 2 breathing treatments and steroids in the emergency department was feeling considerably better she will follow-up with Dr. Swift today. - Lab Data Result diagrams: 06/08/22 08:11 06/08/22 08:11 Lab Results 06/08/22 06/08/22 06/08/22 Range/Units 08:11 08:11 08:11 WBC 8.1 (3.8-10.6) k/uL RBC 4.65 (3.80-5.40) m/uL Hgb 13.2 (11.4-16.0) gm/dL Hct 41.6 (34.0-46.0) % MCV 89.4 (80.0-100.0) fL MCH 28.4 (25.0-35.0) pg MCHC 31.7 (31.0-37.0) g/dL RDW 13.7 (11.5-15.5) % Plt Count 199 (150-450) k/uL MPV 6.9 Neutrophils % 62 % Lymphocytes % 24 % Monocytes % 5 % Eosinophils % 6 % Basophils % 0 % Neutrophils # 5.0 (1.3-7.7) k/uL Lymphocytes # 2.0 (1.0-4.8) k/uL Monocytes # 0.4 (0-1.0) k/uL Eosinophils # 0.5 (0-0.7) k/uL Basophils # 0.0 (0-0.2) k/uL PT 10.2 (9.0-12.0) sec INR 0.9 (<1.2) APTT 22.4 (22.0-30.0) sec D-Dimer 1.23 H (<0.60) mg/L FEU Sodium 138 (137-145) mmol/L Potassium 3.9 (3.5-5.1) mmol/L Chloride 104 (98-107) mmol/L Carbon Dioxide 28 (22-30) mmol/L Anion Gap 6 mmol/L BUN 7 (7-17) mg/dL Creatinine 0.65 (0.52-1.04) mg/dL Est GFR (CKD-EPI)AfAm >90 (>60 ml/min/1.73 sqM) Est GFR (CKD-EPI)NonAf 87 (>60 ml/min/1.73 sqM) Glucose 140 H (74-99) mg/dL Plasma Lactic Acid Cuco (0.7-2.0) mmol/L Calcium 9.4 (8.4-10.2) mg/dL Magnesium 1.7 (1.6-2.3) mg/dL Total Bilirubin 0.4 (0.2-1.3) mg/dL AST 27 (14-36) U/L ALT 19 (4-34) U/L Alkaline Phosphatase 56 (38-126) U/L Troponin I (0.000-0.034) ng/mL NT-Pro-B Natriuret Pep pg/mL Total Protein 7.0 (6.3-8.2) g/dL Albumin 4.0 (3.5-5.0) g/dL 06/08/22 06/08/22 06/08/22 Range/Units 08:11 08:11 08:11 WBC (3.8-10.6) k/uL RBC (3.80-5.40) m/uL Hgb (11.4-16.0) gm/dL Hct (34.0-46.0) % MCV (80.0-100.0) fL MCH (25.0-35.0) pg MCHC (31.0-37.0) g/dL RDW (11.5-15.5) % Plt Count (150-450) k/uL MPV Neutrophils % % Lymphocytes % % Monocytes % % Eosinophils % % Basophils % % Neutrophils # (1.3-7.7) k/uL Lymphocytes # (1.0-4.8) k/uL Monocytes # (0-1.0) k/uL Eosinophils # (0-0.7) k/uL Basophils # (0-0.2) k/uL PT (9.0-12.0) sec INR (<1.2) APTT (22.0-30.0) sec D-Dimer (<0.60) mg/L FEU Sodium (137-145) mmol/L Potassium (3.5-5.1) mmol/L Chloride (98-107) mmol/L Carbon Dioxide (22-30) mmol/L Anion Gap mmol/L BUN (7-17) mg/dL Creatinine (0.52-1.04) mg/dL Est GFR (CKD-EPI)AfAm (>60 ml/min/1.73 sqM) Est GFR (CKD-EPI)NonAf (>60 ml/min/1.73 sqM) Glucose (74-99) mg/dL Plasma Lactic Acid Cuco 1.1 (0.7-2.0) mmol/L Calcium (8.4-10.2) mg/dL Magnesium (1.6-2.3) mg/dL Total Bilirubin (0.2-1.3) mg/dL AST (14-36) U/L ALT (4-34) U/L Alkaline Phosphatase (38-126) U/L Troponin I <0.012 (0.000-0.034) ng/mL NT-Pro-B Natriuret Pep 180 pg/mL Total Protein (6.3-8.2) g/dL Albumin (3.5-5.0) g/dL Disposition Clinical Impression: Acute severe exacerbation of asthma, Rectal bleeding Disposition: HOME SELF-CARE Instructions (If sedation given, give patient instructions): Asthma (ED) Prescriptions: predniSONE [Deltasone] 40 mg PO DAILY #8 tab Is patient prescribed a controlled substance at d/c from ED?: No Referrals: Magnus Pearson MD [Primary Care Provider] - 1-2 days Francisco Swift MD [STAFF PHYSICIAN] - 1-2 days Time of Disposition: 10:17
[2022-06-08 08:22] VITALS: RESP 18
[2022-06-08 08:25] LABS: Basophils % (A) 0 %; Eosinophils # (A) 0.5 k/uL (0-0.7); Eosinophils % (A) 6 %; HCT 41.6 % (34.0-46.0); HGB 13.2 gm/dL (11.4-16.0); Lymphocytes % (A) 24 %; MCH 28.4 pg (25.0-35.0); MCHC 31.7 g/dL (31.0-37.0); MCV 89.4 fL (80.0-100.0); Mean Platelet Volume 6.9; Monocytes # (A) 0.4 k/uL (0-1.0); Monocytes % (A) 5 %; Neutrophils % (A) 62 %; Platelet Count 199 k/uL (150-450); RBC 4.65 m/uL (3.80-5.40); RDW 13.7 % (11.5-15.5); WBC 8.1 k/uL (3.8-10.6)
[2022-06-08 08:34] LABS: ALT 19 U/L (4-34); AST 27 U/L (14-36); African American GFR (CKD) >90 (>60 ml/min/1.73 sqM); Alkaline Phosphatase 56 U/L (38-126); Anion Gap 6 mmol/L; Blood Urea Nitrogen 7 mg/dL (7-17); Calcium 9.4 mg/dL (8.4-10.2); Carbon Dioxide 28 mmol/L (22-30); Chloride 104 mmol/L (98-107); Glucose 140 mg/dL (74-99); Magnesium 1.7 mg/dL (1.6-2.3); Non-African American GFR(CKD) 87 (>60 ml/min/1.73 sqM); Potassium 3.9 mmol/L (3.5-5.1); Sodium 138 mmol/L (137-145); Total Bilirubin 0.4 mg/dL (0.2-1.3)
[2022-06-08 08:43] LABS: INR 0.9 (<1.2); Partial Thromboplastin Time 22.4 sec (22.0-30.0); Prothrombin Time 10.2 sec (9.0-12.0)
--- NOTE | 2022-06-08 08:48 | XR ---
EXAMINATION TYPE: XR chest 2V DATE OF EXAM: 06/08/2022 COMPARISON: 05/12/2022 HISTORY: Shortness of breath TECHNIQUE: Frontal and lateral views of the chest are obtained. FINDINGS: Scattered senescent parenchymal changes noted. Hyperinflation compatible with COPD. No evidence for infiltrate. No evidence for atelectasis. Heart size is stable. Mediastinal structures are stable and grossly unremarkable. No evidence for hilar prominence. Degenerative changes dorsal spine. IMPRESSION: 1. No evidence for acute pulmonary disease.
--- NOTE | 2022-06-08 09:46 | CT ---
EXAMINATION TYPE: CT chest angio for PE DATE OF EXAM: 06/08/2022 COMPARISON: 10/02/2021 HISTORY: SOB, Elevated d dimer CT DLP: 379.1 mGycm CONTRAST: CT chest with contrast and 3D reconstruction with MIP imaging is performed with IV Contrast, patient injected with 64 mL of Isovue 370. Contrast-enhanced CT of the chest was performed through the course of the pulmonary arteries with kelsy g and mediastinal window settings submitted. 3D reconstruction with MIP imaging was also performed. PULMONARY ARTERIES: The pulmonary arteries and their major tributaries are patent. I do not see georgie dence for sizable filling defect to suggest pulmonary embolic process. LUNGS: The lungs are clear and free of infiltrate. No evidence for atelectasis. No pulmonary nodule or mass is detected. No pleural effusion. MEDIASTINUM: Thoracic aorta is of normal caliber. Correlate clinically . The heart is enlarged. N o evidence for mediastinal mass. No mediastinal lymph nodes greater than 1cm. HILAR STRUCTURES: No evidence for mass. No hilar lymph nodes greater than 1 cm. UPPER ABDOMEN: No significant abnormality is seen. IMPRESSION: 1. No evidence for Pulmonary embolism at this time.
[2022-06-08 10:38] VITALS: BP 145/67; PULSE 92
== END 2022-06-08 10:38 | disposition home or self-care (01) ==
LOC: EC 07:34
DX: J45.901 Unspecified asthma with (acute) exacerbation (principal); K62.5 Hemorrhage of anus and rectum; J45.909 Unspecified asthma, uncomplicated; K21.9 Gastro-esophageal reflux disease without esophagitis; M19.90 Unspecified osteoarthritis, unspecified site; Z87.891 Personal history of nicotine dependence; Z88.8 Allergy status to other drugs, medicaments and biological substances; Z88.2 Allergy status to sulfonamides; Z88.1 Allergy status to other antibiotic agents; Z79.899 Other long term (current) drug therapy; Z79.51 Long term (current) use of inhaled steroids
CPT/HCPCS: 99285; 96374; 36415; 94640; 93005; 85379; 83880; 80053; 83605; 83735; 84484; 85025; 85610; 85730; 71046; 71275; J2930; Q9967; 99284

== ENCOUNTER 2022-08-02 10:56 | Emergency (ER) | payer MEDICARE, MEDICAID ==
[2022-08-02 11:19] VITALS: BP 159/80; PULSE 85; RESP 18; TEMP 97.2
--- NOTE | 2022-08-02 12:12 | ED ---
General Adult HPI - General Chief complaint: Recheck/Abnormal Lab/Rx Stated complaint: oral thrush Time Seen by Provider: 08/02/22 11:49 Source: patient, RN notes reviewed Mode of arrival: ambulatory Limitations: no limitations - History of Present Illness Initial comments: 77-year-old female presents emergency Department with chief complaint of recurrent thrush. Patient states she's been having issues with her asthma which is causing her use her inhalers more and states that she developed thrush. Patient states that she did do one dose of dizziness didn't seem to help but reoccurred. Patient has appears or chills no shortness of breath at this time no other complaints. - Related Data Home Medications Medication Instructions Recorded Confirmed Enalapril [Vasotec] 5 mg PO DAILY 07/16/14 05/12/22 Rosuvastatin Calcium [Crestor] 5 mg PO DAILY 07/16/14 05/12/22 Solifenacin Succinate [Vesicare] 10 mg PO HS 07/16/14 05/12/22 atenoloL [Tenormin] 25 mg PO BID 07/16/14 05/12/22 Latanoprost Ophth [Xalatan 0.005%] 1 drops BOTH EYES HS 08/17/17 05/12/22 Albuterol Inhaler [Ventolin Hfa 2 puff INHALATION RT-QID PRN 12/16/20 05/12/22 Inhaler] Furosemide [Lasix] 20 mg PO MOWEFR 12/16/20 05/12/22 Digoxin 250 mcg PO DAILY 04/15/21 05/12/22 Budesonide 0.5 mg INHALATION RT-BID 05/12/22 05/12/22 Cetirizine HCl [Zyrtec] 10 mg PO DAILY PRN 05/12/22 05/12/22 Meclizine [Antivert] 12.5 mg PO TID PRN 05/12/22 05/12/22 Naproxen Sodium [Aleve] 220 mg PO DAILY PRN 05/12/22 05/12/22 Sennosides [Senokot] 8.6 mg PO DAILY 05/12/22 05/12/22 Previous Rx's Medication Instructions Recorded predniSONE 50 mg PO DAILY #5 tab 05/12/22 predniSONE [Deltasone] 40 mg PO DAILY #8 tab 06/08/22 predniSONE 10 mg PO DAILY 16 Days #37 tab 07/19/22 Fluconazole [Diflucan] 150 mg PO ONCE #4 tab 08/02/22 Nystatin 100,000 Unit/ml Susp 5 ml PO QID #200 ml 08/02/22 [Mycostatin Oral Susp] Allergies Allergy/AdvReac Type Severity Reaction Status Date / Time benzonatate AdvReac Nausea & Verified 08/02/22 11:16 Vomiting dexamethasone AdvReac Nausea & Verified 08/02/22 11:16 Vomiting doxycycline AdvReac Nausea & Verified 08/02/22 11:16 Vomiting pravastatin sodium AdvReac Unknown Verified 08/02/22 11:16 [From Pravachol] Sulfa (Sulfonamide AdvReac Unknown Verified 08/02/22 11:16 Antibiotics) Review of Systems ROS Statement: Those systems with pertinent positive or pertinent negative responses have been documented in the HPI. ROS Other: All systems not noted in ROS Statement are negative. Past Medical History Past Medical History: Asthma, GERD/Reflux, Osteoarthritis (OA) Additional Past Medical History / Comment(s): cardiomyopathy, elevated heart rat e, overactive bladder, glaucoma, hx elevated sed rate,lt knee pain-arthritis and elmore cyst History of Any Multi-Drug Resistant Organisms: None Reported Past Surgical History: Appendectomy, Section, Hysterectomy, Orthopedic Surgery Additional Past Surgical History / Comment(s): 3 left breast biopsies, 3 needle loc on right breast- pt states all benign. lelo rotator cuff repair, lelo. hammer toe and bunionectomy, trigger finger release lelo ring fingers, meniscus repair lelo knees, carpal tunnel lelo, rt thumb fusion, lt ankle surgery, D&C, bilateral cataract surgery and laser surgery Past Anesthesia/Blood Transfusion Reactions: No Reported Reaction Past Psychological History: No Psychological Hx Reported Smoking Status: Former smoker Past Alcohol Use History: None Reported Past Drug Use History: None Reported - Past Family History Mother Family Medical History: No Reported History General Exam Limitations: no limitations General appearance: alert, in no apparent distress Head exam: Present: atraumatic, normocephalic, normal inspection Eye exam: Present: normal appearance, PERRL, EOMI. Absent: scleral icterus, conjunctival injection, periorbital swelling ENT exam: Present: mucous membranes moist, TM's normal bilaterally, normal external ear exam. Absent: normal oropharynx (White coating noted) Neck exam: Present: normal inspection, full ROM. Absent: tenderness, meningismus, lymphadenopathy Respiratory exam: Present: normal lung sounds bilaterally. Absent: respiratory distress, wheezes, rales, rhonchi, stridor Cardiovascular Exam: Present: regular rate, normal rhythm, normal heart sounds. Absent: systolic murmur, diastolic murmur, rubs, gallop, clicks Course Vital Signs 08/02/22 11:17 Temperature 97.2 F L Pulse Rate 85 Respiratory 18 Rate Blood Pressure 159/80 O2 Sat by Pulse 99 Oximetry Medical Decision Making - Medical Decision Making 77-year-old female presented for thrush. Patient will be started on oral solution along with Diflucan given recurrence. Disposition Clinical Impression: Oral candidiasis Disposition: HOME SELF-CARE Condition: Stable Instructions (If sedation given, give patient instructions): Oral Candidiasis (ED) Additional Instructions: Please return to the Emergency Department if symptoms worsen or any other concerns. Prescriptions: Fluconazole [Diflucan] 150 mg PO ONCE #4 tab Nystatin 100,000 Unit/ml Susp [Mycostatin Oral Susp] 5 ml PO QID #200 ml Is patient prescribed a controlled substance at d/c from ED?: No Referrals: Magnus Pearson MD [Primary Care Provider] - 1-2 days Time of Disposition: 12:12
== END 2022-08-02 12:43 | disposition home or self-care (01) ==
LOC: EC 10:56
DX: B37.0 Candidal stomatitis (principal); J45.909 Unspecified asthma, uncomplicated; M19.90 Unspecified osteoarthritis, unspecified site; K21.9 Gastro-esophageal reflux disease without esophagitis; Z87.891 Personal history of nicotine dependence; Z88.8 Allergy status to other drugs, medicaments and biological substances; Z88.1 Allergy status to other antibiotic agents; Z88.2 Allergy status to sulfonamides
CPT/HCPCS: 99282

== ENCOUNTER → 2022-08-28 | Outpatient (CLI) | payer MEDICARE, MEDICAID ==
[2022-08-29 13:30] LABS: Clam IgE <0.10 kU/L; Codfish IgE <0.10 kU/L; Egg White IgE <0.10 kU/L; Peanut IgE <0.10 kU/L; Scallop IgE <0.10 kU/L; Shrimp IgE <0.10 kU/L; Soybean IgE <0.10 kU/L; Walnut IgE (Food) <0.10 kU/L
[2022-08-29 13:58] LABS: Immunoglobulin E 9.53 IU/mL (0.00-114.00)
== END | disposition home or self-care (01) ==
LOC: LABWHC1 09:05
PROVIDERS: ATTEND Internal Medicine Critical Care Medicine
DX: J45.40 Moderate persistent asthma, uncomplicated (principal)
CPT/HCPCS: 36415; 82785; 86003

== ENCOUNTER 2022-08-31 12:47 | Emergency (ER) | payer MEDICARE, MEDICAID ==
[2022-08-31 13:45] VITALS: TEMP 98.8
[2022-08-31] MEDS ORDERED: IPRATROPIUM-ALBUTEROL 3 ML NEB INHALATION STA (15:55)
[2022-08-31] MEDS ORDERED: predniSONE 20 MG TAB PO STA (15:55)
[2022-08-31] MEDS ORDERED: ALBUTEROL NEBULIZED 2.5 MG/3 ML INHALATION STA (16:12)
--- NOTE | 2022-08-31 17:29 | ED ---
General Adult HPI - General Chief complaint: Upper Respiratory Infection Stated complaint: SOB, congestion Time Seen by Provider: 08/31/22 15:40 Source: patient, RN notes reviewed, old records reviewed Mode of arrival: ambulatory Limitations: no limitations - History of Present Illness Initial comments: Patient is a 77-year-old female with past medical history remarkable for chronic asthma being closely managed by Dr. Swift who presents to emergency Department complaining of an asthma flare as well as nasal congestion. Is concerned she may have Covid. States she is having what sounds like a productive cough, however she states she is having difficulty getting the mucus up. Denies fevers. Denies chills. Denies chest pain or shortness of breath at this time. Denies any abdominal pain, nausea, vomiting. Denies any other acute complaints at this time. Patient has been having oral thrush which is improving. She is also on multiple chest x-rays recently and would prefer to avoid this at this time. She denies any chest pain. Denies any shortness of breath. Has been worked up for PEs multiple times in the past that have been negative. His no other acute complaints at this time. Presents for further evaluation. States she is wheezing. She is primarily concerned regarding the congestion. Congestion has been ongoing for multiple days. - Related Data Home Medications Medication Instructions Recorded Confirmed Enalapril [Vasotec] 5 mg PO DAILY 07/16/14 05/12/22 Rosuvastatin Calcium [Crestor] 5 mg PO DAILY 07/16/14 05/12/22 Solifenacin Succinate [Vesicare] 10 mg PO HS 07/16/14 05/12/22 atenoloL [Tenormin] 25 mg PO BID 07/16/14 05/12/22 Latanoprost Ophth [Xalatan 0.005%] 1 drops BOTH EYES HS 08/17/17 05/12/22 Albuterol Inhaler [Ventolin Hfa 2 puff INHALATION RT-QID PRN 12/16/20 05/12/22 Inhaler] Furosemide [Lasix] 20 mg PO MOWEFR 12/16/20 05/12/22 Digoxin 250 mcg PO DAILY 04/15/21 05/12/22 Budesonide 0.5 mg INHALATION RT-BID 05/12/22 05/12/22 Cetirizine HCl [Zyrtec] 10 mg PO DAILY PRN 05/12/22 05/12/22 Meclizine [Antivert] 12.5 mg PO TID PRN 05/12/22 05/12/22 Naproxen Sodium [Aleve] 220 mg PO DAILY PRN 05/12/22 05/12/22 Sennosides [Senokot] 8.6 mg PO DAILY 05/12/22 05/12/22 Previous Rx's Medication Instructions Recorded predniSONE 50 mg PO DAILY #5 tab 05/12/22 predniSONE [Deltasone] 40 mg PO DAILY #8 tab 06/08/22 predniSONE 10 mg PO DAILY 16 Days #37 tab 07/19/22 Fluconazole [Diflucan] 150 mg PO ONCE #4 tab 08/02/22 Nystatin 100,000 Unit/ml Susp 5 ml PO QID #200 ml 08/02/22 [Mycostatin Oral Susp] Azithromycin [Zithromax] 250 mg PO DAILY 4 Days #4 tab 08/31/22 Allergies Allergy/AdvReac Type Severity Reaction Status Date / Time benzonatate AdvReac Nausea & Verified 08/02/22 11:16 Vomiting dexamethasone AdvReac Nausea & Verified 08/02/22 11:16 Vomiting doxycycline AdvReac Nausea & Verified 08/02/22 11:16 Vomiting pravastatin sodium AdvReac Unknown Verified 08/02/22 11:16 [From Pravachol] Sulfa (Sulfonamide AdvReac Unknown Verified 08/02/22 11:16 Antibiotics) Review of Systems ROS Statement: Those systems with pertinent positive or pertinent negative responses have been documented in the HPI. Review of Systems: CONST: Denies fever EYES: Denies blurry vision ENT: Endorses nasal congestion C/V: Denies Chest pain RESP: Endorses wheezing GI: Denies abdominal pain : Denies dysuria SKIN: Denies rash. MSK: Denies joint pain. NEURO: Denies headache ROS Other: All systems not noted in ROS Statement are negative. Past Medical History Past Medical History: Asthma, GERD/Reflux, Osteoarthritis (OA) Additional Past Medical History / Comment(s): cardiomyopathy, elevated heart rate, overactive bladder, glaucoma, hx elevated sed rate,lt knee pain-arthritis and elmore cyst History of Any Multi-Drug Resistant Organisms: None Reported Past Surgical History: Appendectomy, Section, Hysterectomy, Orthopedic Surgery Additional Past Surgical History / Comment(s): 3 left breast biopsies, 3 needle loc on right breast- pt states all benign. lelo rotator cuff repair, lelo. hammer toe and bunionectomy, trigger finger release lelo ring fingers, meniscus repair lelo knees, carpal tunnel lelo, rt thumb fusion, lt ankle surgery, D&C, bilateral cataract surgery and laser surgery Past Anesthesia/Blood Transfusion Reactions: No Reported Reaction Past Psychological History: No Psychological Hx Reported Smoking Status: Former smoker Past Alcohol Use History: None Reported Past Drug Use History: None Reported - Past Family History Mother Family Medical History: No Reported History General Exam - General Exam Comments Initial Comments: General: Appears in no acute distress. HEAD: Normal with no signs of head trauma. EYES: PERRLA, EOMI, conjunctiva normal, no discharge. ENT: Hearing grossly intact, normal oropharynx. No stridor. RESPIRATORY: Mild lower lobe end expiratory wheezing. Otherwise clear breath sounds. No increased work of breathing. Not hypoxic. C/V: Regular rate and rhythm. S1 and S2 auscultated, no edema, peripheral pulses 2+ and intact throughout ABD: Abd is soft, nontender, nondistended EXT: Normal range of motion, no obvious deformity SKIN: No rashes or lesions observed on exposed skin. NEURO: Alert and oriented 4. Limitations: no limitations Course Vital Signs 08/31/22 08/31/22 08/31/22 13:42 16:14 16:25 Temperature 98.8 F Pulse Rate 86 85 81 Respiratory 20 18 18 Rate Blood Pressure 151/83 O2 Sat by Pulse 100 Oximetry Medical Decision Making - Medical Decision Making Based the patient's presentation and physical exam, she appears to be having a mild asthma exacerbation with some increased congestion. We discussed options of chest x-ray or CT of the chest, which she refused at this time as she has had many over the last few weeks to months. I believe this is reasonable. We will symptomatically treat her asthma. Screening EKG was obtained and showed no signs of acute ischemic process. I do not believe she requires laboratory studies at this time except for Covid swab which was negative. She'll be given an albuterol updraft as well as a dose of prednisone. She was in agreement this plan. Vital signs within normal limits including no respiratory distress and no hypoxia. Following breathing treatments, patient is feeling improved. Wheezing has resolved. I did offer her home steroids as well as antibiotics for an asthma exacerbation and possible bronchitis. She is supposed to be calling Dr. Swift per patient rather than coming to the emergency department if she gets having mild symptoms like this. I recommended that she call him in the morning. She was in agreement with this plan. She states she would like to hold off on the steroids until she speaks with Dr. Swift she is on daily 10 mg. I believe this is reasonable. She will not receive a prescription for steroids. I did offer her this antibiotic as well to cover for possible bronchitis as she is having increased productive cough. She initially declines, however change her mind and accepted. Patient will be given home antibiotics. She'll be discharged home at this time in good condition. Strict return precautions were discussed. She will speak with Dr. Swift tomorrow.She has breathing treatments at home and states she does not require refill. I will provide the patient with a prescription for azithromycin. I instructed the patient to follow up with their PCP in the next 1-3 days. I explained that the patient should return to the emergency department if they experience any worsening symptoms. Strict return precautions were discussed with the patient. The patient expressed understanding of these instructions. I answered all questions that the patient had. The patient was discharged home in good condition with their prescriptions and follow up information. - Lab Data Lab Results 08/31/22 Range/Units 13:46 Coronavirus (PCR) Not Detected (Not Detectd) - EKG Data -: EKG Interpreted by Me EKG Comments: 12-lead Electrocardiogram Interpretation Note EKG was reviewed and interpreted by myself. 12-lead ECG performed at default value is interpreted by me as revealing 1523 at a rate of 91 beats per minute. Left axis deviation. [place] interval is 192 ms, QRS duration is 111 ms, QTc is 369 ms.. There were no ST or T wave abnormalities to suggest myocardial ischemia or injury. R wave progression across the precordium was satisfactory. By my inte rpretation this EKG is non-diagnostic for acute ischemia. When compared with prior EKG from June 2022, there are no changes. Disposition Clinical Impression: Asthma exacerbation, Nasal congestion, Bronchitis Disposition: HOME SELF-CARE Condition: Good Instructions (If sedation given, give patient instructions): Asthma (ED) Prescriptions: Azithromycin [Zithromax] 250 mg PO DAILY 4 Days #4 tab Is patient prescribed a controlled substance at d/c from ED?: No Referrals: Magnus Pearson MD [Primary Care Provider] - 1-2 days Time of Disposition: 17:15
[2022-08-31] MEDS ORDERED: AZITHROMYCIN 500 MG TAB PO STA (17:46)
[2022-08-31 18:12] VITALS: BP 145/71; PULSE 101; RESP 17
== END 2022-08-31 18:11 | disposition home or self-care (01) ==
LOC: EC 12:47
DX: J45.901 Unspecified asthma with (acute) exacerbation (principal); K21.9 Gastro-esophageal reflux disease without esophagitis; Z20.822 Contact with and (suspected) exposure to COVID-19; Z87.891 Personal history of nicotine dependence; Z88.2 Allergy status to sulfonamides; Z88.8 Allergy status to other drugs, medicaments and biological substances; Z79.51 Long term (current) use of inhaled steroids
CPT/HCPCS: 94640; 87635; 99285; J7512

== ENCOUNTER → 2022-09-24 | Outpatient (CLI) | payer MEDICARE, MEDICAID ==
--- NOTE | 2022-09-24 14:55 | CT ---
EXAMINATION TYPE: CT chest w con DATE OF EXAM: 09/24/2022 COMPARISON: 07/19/2022 HISTORY: Lung Nodule CT DLP: 364.30 mGycm Automated exposure control for dose reduction was used. TECHNIQUE: CT scan of the chest is performed with IV Contrast, patient injected with 70 mL of Isovue 300. MIP I mages are created on CT scanner and reviewed. 3D reconstructed images are created on an independent w orkstation and reviewed. FINDINGS: LUNGS: The lungs are grossly clear, there is no concerning consolidative pneumonia identified. Ther e is no pleural effusion or pneumothorax seen. The tracheobronchial tree is patent. There is a calci fied nodule measuring 6 mm in the left lower lobe stable from prior exam. There is an additional subp leural nodule right lung base measuring 8 mm. Subsegmental linear changes most likely atelectasis. MEDIASTINUM: There are no greater than 1 cm hilar or mediastinal lymph nodes. No pericardial effusi on is seen. Coronary artery calcification seen. Aorta of normal caliber with mild atherosclerotic ch anges. OTHER: Splenic granulomas seen and there is low attenuation of liver most hepatic steatosis. Hypertr ophic and degenerative changes of the spine. Dense coronary artery calcifications are seen and there is some irregular nodules within the breast. At the T10 level there is a abnormal area of attenuation within the spinal canal paracentral to the right could represent calcified disc herniation. Other et iologies not excluded. IMPRESSION: 1. Stable bilateral lower lobe pulmonary nodules measuring 6 and 8 mm respectively. Findings are nons pecific but stable dating back to 02/15/2021. 2. Hepatic steatosis. 3. Cardiomegaly and dense coronary artery calcification. 4 question bilateral subareolar breast nodul es correlate with mammogram. 4. MRI thoracic spine recommended for a area of abnormal soft tissue in calcified density within the spinal canal at the T10 level paracentral to the right. Possibly calcified disc herniation. Other bhavna ologies not excluded by CAT scan.
== END | disposition home or self-care (01) ==
LOC: RADCTMAIN 13:16
PROVIDERS: ATTEND Internal Medicine Critical Care Medicine
DX: R91.8 Other nonspecific abnormal finding of lung field (principal); K76.0 Fatty (change of) liver, not elsewhere classified; I25.10 Atherosclerotic heart disease of native coronary artery without angina pectoris; I51.7 Cardiomegaly
CPT/HCPCS: 82565; 84520; 71260; 36415; Q9967

== ENCOUNTER → 2022-10-02 | Outpatient (CLI) | payer MEDICARE, MEDICAID ==
--- NOTE | 2022-10-02 16:45 | MM ---
Reason for Exam: Screening (asymptomatic). Last screening mammogram was performed 12 month(s) ago. Patient History: Menarche at age 15. First Full-Term at age 20. Hysterectomy at age 33. Postmenopausal. Hormonal Contraceptives, starting at age 18 for 2 years. 1989, Excisional Biopsy on the Right side. Core Biopsy on the Left side. 1995, Excisional Biopsy on the Right side. 1994, Excisional Biopsy on the Right side. 09/18/2017, Benign Core Biopsy on the right side. 08/21/2017, High risk Core Biopsy on the right side. 08/15/2005, Benign Core Biopsy on the left side. 07/14/2005, Benign Core Biopsy on the left side. 07/08/2004, Benign Stereotactic Core Biopsy on the left side. Risk Values: Penny 5 year model risk: 1.9%. NCI Lifetime model risk: 4.1%. Prior Study Comparison: 09/16/2019 Bilateral Diagnostic Mammogram, [facility]. 09/19/2020 Bilateral Screening Mammogram, [facility]. 10/01/2021 Bilateral Screening Mammogram, [facility]. Tissue Density: The breast tissue is heterogeneously dense. This may lower the sensitivity of mammography. Findings: Analyzed By CAD. Postsurgical changes are within the upper posterior right breast on prior surgical intervention. This area is stable. : Present within the left breast. There are multiple scattered benign-appearing calcifications present bilaterally. There is a group of punctate calcifications at the anterior 3:00 position left breast. Additional workup of these is recommended this appears to be a change. Right breast appears stable. Overall Assessment: Incomplete: need additional imaging evaluation, BI-RAD 0 Management: Diagnostic Mammogram of the left breast. A negative mammogram report should not preclude additional follow up of suspicious palpable abnormalities. Patient should continue monthly self breast exam. A clinical breast exam by your physician is recommended on an annual basis and results should be correlated with mammographic findings. Electronically signed and approved by: Tino Mathew D.O. Radiologis
== END | disposition home or self-care (01) ==
LOC: RADMAMWWP 08:12
PROVIDERS: ATTEND Internal Medicine Geriatric Medicine
DX: Z12.31 Encounter for screening mammogram for malignant neoplasm of breast (principal); Z78.0 Asymptomatic menopausal state
CPT/HCPCS: 77063; 77067

== ENCOUNTER → 2022-10-06 | Outpatient (CLI) | payer MEDICARE, MEDICAID ==
--- NOTE | 2022-10-06 09:26 | MM ---
Reason for Exam: Additional evaluation requested from prior study. Last screening mammogram was performed less than 1 month ago. Patient History: Menarche at age 15. First Full-Term at age 20. Hysterectomy at age 33. Postmenopausal. Hormonal Contraceptives, starting at age 18 for 2 years. 1989, Excisional Biopsy on the Right side. Core Biopsy on the Left side. 1995, Excisional Biopsy on the Right side. 1994, Excisional Biopsy on the Right side. 09/18/2017, Benign Core Biopsy on the right side. 08/21/2017, High risk Core Biopsy on the right side. 08/15/2005, Benign Core Biopsy on the left side. 07/14/2005, Benign Core Biopsy on the left side. 07/08/2004, Benign Stereotactic Core Biopsy on the left side. Risk Values: Penny 5 year model risk: 1.9%. NCI Lifetime model risk: 4.1%. Prior Study Comparison: 09/19/2020 Bilateral Screening Mammogram, [facility]. 10/01/2021 Bilateral Screening Mammogram, [facility]. 10/02/2022 Bilateral MG 3D screening mammo w/cad, [facility]. Tissue Density: Left: The breast tissue is heterogeneously dense. This may lower the sensitivity of mammography. Findings: Analyzed By CAD. There are linear distributed fairly round grouped calcifications on additional views in the left breast in patient with history of previous benign core biopsies left breast for calcifications favoring benign etiology. Overall Assessment: Probably benign, BI-RAD 3 Management: Diagnostic Mammogram of the left breast in 6 months. A clinical breast exam by your physician is recommended on an annual basis and results should be correlated with mammographic findings. This exam should not preclude additional follow-up of suspicious palpable abnormalities. Results were given to the patient verbally at the time of exam. Electronically signed and approved by: Mateo Sun M.D.
== END | disposition home or self-care (01) ==
LOC: RADMAMWWP 08:48
PROVIDERS: ATTEND Internal Medicine Geriatric Medicine
DX: R92.8 Other abnormal and inconclusive findings on diagnostic imaging of breast (principal); Z78.0 Asymptomatic menopausal state
CPT/HCPCS: 77065; G0279; 77061

== ENCOUNTER 2022-10-30 03:39 | Emergency (ER) | payer MEDICARE, MEDICAID ==
[2022-10-30] MEDS ORDERED: SODIUM CHLORIDE 0.9% 1,000 ML IV STA (04:38)
[2022-10-30] MEDS ORDERED: IPRATROPIUM-ALBUTEROL 3 ML NEB INHALATION STA (04:38)
--- NOTE | 2022-10-30 04:38 | ED ---
SOB HPI - General Chief Complaint: Shortness of Breath Stated Complaint: FLORENCIO Time Seen by Provider: 10/30/22 04:06 Source: patient, RN notes reviewed, old records reviewed Mode of arrival: wheelchair - History of Present Illness Initial Comments: This is a 77-year-old female to the emergency department for evaluation patient has history of similar. Sick contact use brother with fever. Patient herself is no medical history takes no medications. Today. Not the same cup. Patient himself has no complaints aside from wheezing and shortness of breath no chest pain. MD Complaint: shortness of breath, cough -: hour(s), days(s) Radiation: back Quality: throbbing Consistency: intermittent Improves With: nothing Worsens With: nothing Known History Of: asthma Context: recent URI, recent illness Associated Symptoms: denies other symptoms, fever, cough - Related Data Home Medications Medication Instructions Recorded Confirmed Enalapril [Vasotec] 5 mg PO DAILY 07/16/14 05/12/22 Rosuvastatin Calcium [Crestor] 5 mg PO DAILY 07/16/14 05/12/22 Solifenacin Succinate [Vesicare] 10 mg PO HS 07/16/14 05/12/22 atenoloL [Tenormin] 25 mg PO BID 07/16/14 05/12/22 Latanoprost Ophth [Xalatan 0.005%] 1 drops BOTH EYES HS 08/17/17 05/12/22 Albuterol Inhaler [Ventolin Hfa 2 puff INHALATION RT-QID PRN 12/16/20 05/12/22 Inhaler] Furosemide [Lasix] 20 mg PO MOWEFR 12/16/20 05/12/22 Digoxin 250 mcg PO DAILY 04/15/21 05/12/22 Budesonide 0.5 mg INHALATION RT-BID 05/12/22 05/12/22 Cetirizine HCl [Zyrtec] 10 mg PO DAILY PRN 05/12/22 05/12/22 Meclizine [Antivert] 12.5 mg PO TID PRN 05/12/22 05/12/22 Naproxen Sodium [Aleve] 220 mg PO DAILY PRN 05/12/22 05/12/22 Sennosides [Senokot] 8.6 mg PO DAILY 05/12/22 05/12/22 Previous Rx's Medication Instructions Recorded predniSONE 50 mg PO DAILY #5 tab 05/12/22 predniSONE [Deltasone] 40 mg PO DAILY #8 tab 06/08/22 predniSONE 10 mg PO DAILY 16 Days #37 tab 07/19/22 Fluconazole [Diflucan] 150 mg PO ONCE #4 tab 08/02/22 Nystatin 100,000 Unit/ml Susp 5 ml PO QID #200 ml 08/02/22 [Mycostatin Oral Susp] Azithromycin [Zithromax] 250 mg PO DAILY 4 Days #4 tab 08/31/22 Allergies Allergy/AdvReac Type Severity Reaction Status Date / Time benzonatate AdvReac Nausea & Verified 10/30/22 04:12 Vomiting dexamethasone AdvReac Nausea & Verified 10/30/22 04:12 Vomiting doxycycline AdvReac Nausea & Verified 10/30/22 04:12 Vomiting pravastatin sodium AdvReac Unknown Verified 10/30/22 04:12 [From Pravachol] Sulfa (Sulfonamide AdvReac Unknown Verified 10/30/22 04:12 Antibiotics) Review of Systems ROS Statement: Those systems with pertinent positive or pertinent negative responses have been documented in the HPI. ROS Other: All systems not noted in ROS Statement are negative. Past Medical History Past Medical History: Asthma, GERD/Reflux, Osteoarthritis (OA) Additional Past Medical History / Comment(s): cardiomyopathy, elevated heart rate, overactive bladder, glaucoma, hx elevated sed rate,lt knee pain-arthritis and elmore cyst History of Any Multi-Drug Resistant Organisms: None Reported Past Surgical History: Appendectomy, Section, Hysterectomy, Orthopedic Surgery Additional Past Surgical History / Comment(s): 3 left breast biopsies, 3 needle loc on right breast- pt states all benign. lelo rotator cuff repair, lelo. hammer toe and bunionectomy, trigger finger release lelo ring fingers, meniscus repair lelo knees, carpal tunnel lelo, rt thumb fusion, lt ankle surgery, D&C, bilateral cataract surgery and laser surgery Past Anesthesia/Blood Transfusion Reactions: No Reported Reaction Past Psychological History: No Psychological Hx Reported Smoking Status: Former smoker Past Alcohol Use History: None Reported Past Drug Use History: None Reported - Past Family History Mother Family Medical History: No Reported History General Exam General appearance: alert, in no apparent distress, anxious Head exam: Present: atraumatic, normocephalic, normal inspection Eye exam: Present: normal appearance, PERRL, EOMI. Absent: scleral icterus, conjunctival injection, periorbital swelling ENT exam: Present: normal exam, mucous membranes moist Neck exam: Present: normal inspection. Absent: tenderness, meningismus, lymphadenopathy Respiratory exam: Present: normal lung sounds bilaterally. Absent: respiratory distress, wheezes, rales, rhonchi, stridor Cardiovascular Exam: Present: regular rate, normal rhythm, normal heart sounds. Absent: systolic murmur, diastolic murmur, rubs, gallop, clicks GI/Abdominal exam: Present: soft, normal bowel sounds. Absent: distended, tenderness, guarding, rebound, rigid Extremities exam: Present: normal inspection, full ROM, normal capillary refill. Absent: tenderness, pedal edema, joint swelling, calf tenderness Back exam: Present: normal inspection Neurological exam: Present: alert, oriented X3, CN II-XII intact Psychiatric exam: Present: normal affect, normal mood Skin exam: Present: warm, dry, intact, normal color. Absent: rash Course Vital Signs 10/30/22 10/30/22 10/30/22 04:09 05:38 05:43 Temperature 98 F Pulse Rate 88 88 84 Respiratory 21 Rate Blood Pressure 151/73 O2 Sat by Pulse 97 Oximetry - Reevaluation(s) Reevaluation #1: 10/30/22 06:08 Medical record is reviewed Reevaluation #2: 10/30/22 06:08 Patient symptoms are improved Reevaluation #3: 10/30/22 06:08 Patient informed results and questions are answered Reevaluation #4: 10/30/22 06:08 Patient improvement after breathing treatment and feels comfortable with discharge home Medical Decision Making - Medical Decision Making 77 female to the emergency department for evaluation, patient presents today for evaluation shortness breath cough and congestion bronchitis, patient is been DrFelix has an outpatient with steroids. She was and antibiotics. No improvement patient presents DF for further evaluation, - Lab Data Result diagrams: 10/30/22 04:43 10/30/22 04:43 Lab Results 10/30/22 10/30/22 10/30/22 Range/Units 04:43 04:43 04:43 WBC 8.8 (3.8-10.6) k/uL RBC 4.71 (3.80-5.40) m/uL Hgb 13.6 (11.4-16.0) gm/dL Hct 41.5 (34.0-46.0) % MCV 88.0 (80.0-100.0) fL MCH 29.0 (25.0-35.0) pg MCHC 32.9 (31.0-37.0) g/dL RDW 13.6 (11.5-15.5) % Plt Count 216 (150-450) k/uL MPV 7.8 Neutrophils % 46 % Lymphocytes % 39 % Monocytes % 5 % Eosinophils % 7 % Basophils % 1 % Neutrophils # 4.0 (1.3-7.7) k/uL Lymphocytes # 3.4 (1.0-4.8) k/uL Monocytes # 0.4 (0-1.0) k/uL Eosinophils # 0.6 (0-0.7) k/uL Basophils # 0.1 (0-0.2) k/uL PT 10.3 (9.0-12.0) sec INR 1.0 (<1.2) APTT 22.5 (22.0-30.0) sec Sodium 142 (137-145) mmol/L Potassium 3.9 (3.5-5.1) mmol/L Chloride 107 (98-107) mmol/L Carbon Dioxide 26 (22-30) mmol/L Anion Gap 9 mmol/L BUN 10 (7-17) mg/dL Creatinine 0.75 (0.52-1.04) mg/dL Est GFR (CKD-EPI)AfAm >90 (>60 ml/min/1.73 sqM) Est GFR (CKD-EPI)NonAf 78 (>60 ml/min/1.73 sqM) Glucose 112 H (74-99) mg/dL Calcium 8.6 (8.4-10.2) mg/dL Magnesium 1.8 (1.6-2.3) mg/dL Total Bilirubin 0.4 (0.2-1.3) mg/dL AST 37 H (14-36) U/L ALT 31 (4-34) U/L Alkaline Phosphatase 60 (38-126) U/L Troponin I (0.000-0.034) ng/mL NT-Pro-B Natriuret Pep pg/mL Total Protein 6.5 (6.3-8.2) g/dL Albumin 3.6 (3.5-5.0) g/dL 10/30/22 10/30/22 Range/Units 04:43 04:43 WBC (3.8-10.6) k/uL RBC (3.80-5.40) m/uL Hgb (11.4-16.0) gm/dL Hct (34.0-46.0) % MCV (80.0-100.0) fL MCH (25.0-35.0) pg MCHC (31.0-37.0) g/dL RDW (11.5-15.5) % Plt Count (150-450) k/uL MPV Neutrophils % % Lymphocytes % % Monocytes % % Eosinophils % % Basophils % % Neutrophils # (1.3-7.7) k/uL Lymphocytes # (1.0-4.8) k/uL Monocytes # (0-1.0) k/uL Eosinophils # (0-0.7) k/uL Basophils # (0-0.2) k/uL PT (9.0-12.0) sec INR (<1.2) APTT (22.0-30.0) sec Sodium (137-145) mmol/L Potassium (3.5-5.1) mmol/L Chloride (98-107) mmol/L Carbon Dioxide (22-30) mmol/L Anion Gap mmol/L BUN (7-17) mg/dL Creatinine (0.52-1.04) mg/dL Est GFR (CKD-EPI)AfAm (>60 ml/min/1.73 sqM) Est GFR (CKD-EPI)NonAf (>60 ml/min/1.73 sqM) Glucose (74-99) mg/dL Calcium (8.4-10.2) mg/dL Magnesium (1.6-2.3) mg/dL Total Bilirubin (0.2-1.3) mg/dL AST (14-36) U/L ALT (4-34) U/L Alkaline Phosphatase (38-126) U/L Troponin I <0.012 (0.000-0.034) ng/mL NT-Pro-B Natriuret Pep 126 pg/mL Total Protein (6.3-8.2) g/dL Albumin (3.5-5.0) g/dL - EKG Data -: EKG Interpreted by Me (EKG is sinus 88 AR 218 QRS 114 QTc 404) - Radiology Data Radiology results: report reviewed (Chest x-rays negative for acute disease), image reviewed Disposition Clinical Impression: Asthma with status asthmaticus, Asthma with acute exacerbation Disposition: HOME SELF-CARE Condition: Good Instructions (If sedation given, give patient instructions): Asthma (ED) Is patient prescribed a controlled substance at d/c from ED?: No Referrals: Magnus Pearson MD [Primary Care Provider] - 1-2 days Time of Disposition: 06:10
[2022-10-30 04:57] LABS: Basophils # (A) 0.1 k/uL (0-0.2); Basophils % (A) 1 %; Eosinophils # (A) 0.6 k/uL (0-0.7); Eosinophils % (A) 7 %; HCT 41.5 % (34.0-46.0); HGB 13.6 gm/dL (11.4-16.0); Lymphocytes # (A) 3.4 k/uL (1.0-4.8); Lymphocytes % (A) 39 %; MCHC 32.9 g/dL (31.0-37.0); Mean Platelet Volume 7.8; Monocytes # (A) 0.4 k/uL (0-1.0); Monocytes % (A) 5 %; Neutrophils % (A) 46 %; Platelet Count 216 k/uL (150-450); RBC 4.71 m/uL (3.80-5.40); RDW 13.6 % (11.5-15.5); WBC 8.8 k/uL (3.8-10.6)
--- NOTE | 2022-10-30 05:23 | XR ---
EXAMINATION TYPE: XR chest 1V portable DATE OF EXAM: 10/30/2022 COMPARISON: 07/19/2022 HISTORY: Short of breath TECHNIQUE: Single view FINDINGS: There is no heart failure nor confluent pneumonic infiltrate. Costophrenic angles are clear . Bony thorax is intact. IMPRESSION: No active cardiopulmonary disease. No change.
[2022-10-30 05:24] LABS: Partial Thromboplastin Time 22.5 sec (22.0-30.0); Prothrombin Time 10.3 sec (9.0-12.0)
[2022-10-30] MEDS ORDERED: ALBUTEROL NEBULIZED 2.5 MG/3 ML INHALATION STA (05:36)
[2022-10-30 05:43] LABS: ALT 31 U/L (4-34); AST 37 U/L (14-36); African American GFR (CKD) >90 (>60 ml/min/1.73 sqM); Albumin 3.6 g/dL (3.5-5.0); Alkaline Phosphatase 60 U/L (38-126); Anion Gap 9 mmol/L; Blood Urea Nitrogen 10 mg/dL (7-17); Calcium 8.6 mg/dL (8.4-10.2); Carbon Dioxide 26 mmol/L (22-30); Chloride 107 mmol/L (98-107); Glucose 112 mg/dL (74-99); Magnesium 1.8 mg/dL (1.6-2.3); Non-African American GFR(CKD) 78 (>60 ml/min/1.73 sqM); Potassium 3.9 mmol/L (3.5-5.1); Sodium 142 mmol/L (137-145); Total Bilirubin 0.4 mg/dL (0.2-1.3); Total Protein 6.5 g/dL (6.3-8.2)
[2022-10-30 06:53] VITALS: BP 150/75; PULSE 89; RESP 19; TEMP 98.6
== END 2022-10-30 07:07 | disposition home or self-care (01) ==
LOC: EC 03:39
DX: J45.902 Unspecified asthma with status asthmaticus (principal); I42.9 Cardiomyopathy, unspecified; M19.90 Unspecified osteoarthritis, unspecified site; Z87.891 Personal history of nicotine dependence; Z79.1 Long term (current) use of non-steroidal anti-inflammatories (NSAID); Z79.899 Other long term (current) drug therapy; Z88.8 Allergy status to other drugs, medicaments and biological substances; Z88.1 Allergy status to other antibiotic agents; Z88.2 Allergy status to sulfonamides; Z90.49 Acquired absence of other specified parts of digestive tract
CPT/HCPCS: 36415; 71045; 80053; 83735; 83880; 84484; 85025; 85610; 85730; 93005; 94640; 96360; 99285

== ENCOUNTER → 2022-11-13 | Outpatient (CLI) | payer MEDICARE, MEDICAID ==
--- NOTE | 2022-11-13 18:35 | BD ---
EXAMINATION TYPE: Axial Bone Density DATE OF EXAM: 11/13/2022 COMPARISON: 03.14.2019 CLINICAL HISTORY: 77 years year old Female. ICD-10 CODE: M81.0 AGE RELATED OSTEOPOROSIS Height: 58.6 Weight: 176 FRAX RISK QUESTIONS: Glucocorticoids (More than 3mos): YES (Ex: prednisone, prednisolone, methylprednisolone, dexamethasone, and hydrocortisone). Secondary Osteoporosis: YES 3. Menopause before 45: YES RISK FACTORS HISTORY OF: Postmenopausal woman: HYSTERECTOMY AT AGE 33 YRS OLD Lost more than 2 inches in height since high school: YES Frequent falls: USING CANE AND UNSTEADY Hyperparathyroidism: NO Adrenal Insufficiency: NO MEDICATIONS: Prednisone or other steroids: YES, FOR COPD, AND ALBUTEROL FOR LUNGS, PREDNISONE, ASTHMA How Long: FOR MANY YRS Additional Medications: HEART MEDS, STATIN FOR CHOLESTEROL, REFLUX MEDS, ALLERGY MEDS, Additional History: HEART CONDITION, ALLERGIES, ASTHMA, COPD, REFLUX, CHOLESTEROL, EXAM MEASUREMENTS: Bone mineral densitometry was performed using the [employer] System. Bone mineral density as measured about the Lumbar spine is: ----- L1-L4(G/cm2): 1.331 T Score Values are as follows: ----- L1: 0.9 ----- L2: 0.9 ----- L3: 1.1 ----- L4: 2.0 ----- L1-L4: 1.3 Bone mineral density has: Decreased -12.1% since study of: 03.14.2019 Bone mineral density about the R hip (g/cm2): 0.952 Bone mineral density about the L hip (g/cm2): 0.957 T Score values are as follows: -----R Neck: -0.6 -----L Neck: -0.6 -----R Total: -0.4 -----L Total: -0.4 Bone mineral density has: Decreased -4.7% since study of: 03.14.2019 FRAX%s: The graph provided illustrates a 8.8% chance for a major osteoporotic fx and a 1.1% chance fo r the hips probability for fx in 10 years time. IMPRESSION: Normal (Values between +1 and -1 indicate normal bone mass). Consider repeating this study in 5 year s or sooner if there is some new clinical indication. NOTE: T-SCORE=SD OF THE YOUNG ADULT MEAN.
== END | disposition home or self-care (01) ==
LOC: RADBDWWP 11:17
PROVIDERS: ATTEND Internal Medicine Geriatric Medicine
DX: M81.0 Age-related osteoporosis without current pathological fracture (principal); Z78.0 Asymptomatic menopausal state; Z79.52 Long term (current) use of systemic steroids
CPT/HCPCS: 77080

== ENCOUNTER 2022-11-16 14:40 | Observation (INO) | payer MEDICARE, MEDICAID ==
[2022-11-16] MEDS ORDERED: IPRATROPIUM-ALBUTEROL 3 ML NEB INHALATION STA (15:07)
[2022-11-16] MEDS ORDERED: methylPREDNISolone SOD SUCCI 125 MG/2 ML VIAL IM ONE (15:07)
--- NOTE | 2022-11-16 15:14 | ED ---
General Adult HPI - General Source: patient, RN notes reviewed, old records reviewed Mode of arrival: ambulatory Limitations: no limitations <Zuhair De Jesus - Last Filed: 11/16/22 16:10> <Jann Thompson - Last Filed: 11/16/22 17:06> - General Chief complaint: Shortness of Breath Stated complaint: FLORENCIO,Abd pain Time Seen by Provider: 11/16/22 14:50 - History of Present Illness Initial comments: This is a 77-year-old female who presents emergency Department stating she has a past medical history significant for asthma. Patient states she was a smoker but quit in 1973. Patient states her difficulty breathing spine intermittent since October 24. Patient states she has seen Dr. Swift and was put on ster oids 10 mg every other day and albuterol breathing treatments. Patient states she also went and saw Dr. Michel Pearson. On a ten-day course of amoxicillin possibly Augmentin and her last dose was yesterday. Patient states she still has a little bit of a cough and occasional sputum production. Patient comes in today because her difficulty breathing has worsened. Patient denies any chest pain or palpitations. Patient denies any lightheadedness or dizziness. Patient denies any abdominal pain patient denies nausea vomiting diarrhea. Patient denies any swelling to legs or calf tenderness. (Zuhair De Jesus) - Related Data Home Medications Medication Instructions Recorded Confirmed Enalapril [Vasotec] 5 mg PO DAILY 07/16/14 05/12/22 Rosuvastatin Calcium [Crestor] 5 mg PO DAILY 07/16/14 05/12/22 Solifenacin Succinate [Vesicare] 10 mg PO HS 07/16/14 05/12/22 atenoloL [Tenormin] 25 mg PO BID 07/16/14 05/12/22 Latanoprost Ophth [Xalatan 0.005%] 1 drops BOTH EYES HS 08/17/17 05/12/22 Albuterol Inhaler [Ventolin Hfa 2 puff INHALATION RT-QID PRN 12/16/20 05/12/22 Inhaler] Furosemide [Lasix] 20 mg PO MOWEFR 12/16/20 05/12/22 Digoxin 250 mcg PO DAILY 04/15/21 05/12/22 Budesonide 0.5 mg INHALATION RT-BID 05/12/22 05/12/22 Cetirizine HCl [Zyrtec] 10 mg PO DAILY PRN 05/12/22 05/12/22 Meclizine [Antivert] 12.5 mg PO TID PRN 05/12/22 05/12/22 Naproxen Sodium [Aleve] 220 mg PO DAILY PRN 05/12/22 05/12/22 Sennosides [Senokot] 8.6 mg PO DAILY 05/12/22 05/12/22 Previous Rx's Medication Instructions Recorded predniSONE 50 mg PO DAILY #5 tab 05/12/22 predniSONE [Deltasone] 40 mg PO DAILY #8 tab 06/08/22 predniSONE 10 mg PO DAILY 16 Days #37 tab 07/19/22 Fluconazole [Diflucan] 150 mg PO ONCE #4 tab 08/02/22 Nystatin 100,000 Unit/ml Susp 5 ml PO QID #200 ml 08/02/22 [Mycostatin Oral Susp] Azithromycin [Zithromax] 250 mg PO DAILY 4 Days #4 tab 08/31/22 Allergies Allergy/AdvReac Type Severity Reaction Status Date / Time benzonatate AdvReac Nausea & Verified 11/16/22 14:48 Vomiting dexamethasone AdvReac Nausea & Verified 11/16/22 14:48 Vomiting doxycycline AdvReac Nausea & Verified 11/16/22 14:48 Vomiting pravastatin sodium AdvReac Unknown Verified 11/16/22 14:48 [From Pravachol] Sulfa (Sulfonamide AdvReac Unknown Verified 11/16/22 14:48 Antibiotics) Review of Systems ROS Other: All systems not noted in ROS Statement are negative. <Zuhair De Jesus - Last Filed: 11/16/22 16:10> ROS Other: All systems not noted in ROS Statement are negative. <Jann Thompson - Last Filed: 11/16/22 17:06> ROS Statement: Those systems with pertinent positive or pertinent negative responses have been documented in the HPI. Past Medical History Past Medical History: Asthma, GERD/Reflux, Osteoarthritis (OA) Additional Past Medical History / Comment(s): cardiomyopathy, elevated heart rate, overactive bladder, glaucoma, hx elevated sed rate,lt knee pain-arthritis and elmore cyst History of Any Multi-Drug Resistant Organisms: None Reported Past Surgical History: Appendectomy, Section, Hysterectomy, Orthopedic Surgery Additional Past Surgical History / Comment(s): 3 left breast biopsies, 3 needle loc on right breast- pt states all benign. lelo rotator cuff repair, lelo. hammer toe and bunionectomy, trigger finger release lelo ring fingers, meniscus repair lelo knees, carpal tunnel lelo, rt thumb fusion, lt ankle surgery, D&C, bilateral cataract surgery and laser surgery Past Anesthesia/Blood Transfusion Reactions: No Reported Reaction Past Psychological History: No Psychological Hx Reported Smoking Status: Former smoker Past Alcohol Use History: None Reported Past Drug Use History: None Reported - Past Family History Mother Family Medical History: No Reported History <Zuhair De Jesus - Last Filed: 11/16/22 16:10> General Exam Limitations: no limitations <Zuhair De Jesus - Last Filed: 11/16/22 16:10> - General Exam Comments Initial Comments: GENERAL: Patient is well-developed and well-nourished. Patient is nontoxic and well- hydrated and is in mild distress. ENT: Neck is soft and supple. No significant lymphadenopathy is noted. Oropharynx is clear. Moist mucous membranes. Neck has full range of motion without eliciting any pain. EYES: The sclera were anicteric and conjunctiva were pink and moist. Extraocular movements were intact and pupils were equal round and reactive to light. Eyelids were unremarkable. PULMONARY: Unlabored respirations. Diffuse expiratory wheezing. Patient's oxygenation is 99% on room air in bed CARDIOVASCULAR: There is a regular rate and rhythm without any murmurs gallops or rubs. ABDOMEN: Soft and nontender with normal bowel sounds. SKIN: Skin is clear with no lesions or rashes and otherwise unremarkable. NEUROLOGIC: Patient is alert and oriented x3. Cranial nerves II through XII are grossly intact. Motor and sensory are also intact. Normal speech, volume and content. Symmetrical smile. MUSCULOSKELETAL: Normal extremities with adequate strength and full range of motion. LYMPHATICS: No significant lymphadenopathy is noted PSYCHIATRIC: Normal psychiatric evaluation. (Zuhair De Jesus) Course Vital Signs 11/16/22 11/16/22 11/16/22 14:46 14:48 15:27 Temperature 97.8 F Pulse Rate 100 92 Respiratory 22 20 Rate Blood Pressure 172/82 O2 Sat by Pulse 97 Oximetry 11/16/22 11/16/22 11/16/22 15:40 15:42 15:56 Temperature Pulse Rate 95 90 92 Respiratory Rate Blood Pressure O2 Sat by Pulse Oximetry 11/16/22 11/16/22 11/16/22 16:05 16:16 16:25 Temperature Pulse Rate 100 100 100 Respiratory Rate Blood Pressure O2 Sat by Pulse Oximetry Medical Decision Making <Zuhair De Jesus - Last Filed: 11/16/22 16:10> <Jann Thompson - Last Filed: 11/16/22 17:06> - Medical Decision Making Dr. Thompson will be taking over the care of this patient at 4 PM (Zuhair De Jesus) Patient was signed out to me by previous shift physician, Dr. Dillon De Jesus. Briefly, patient 77-year-old female presents to the emergency department for shortness of breath. She has extensive history of asthma or COPD. She does see Dr. Swift. She takes every other day steroids after having had taken daily steroids. She states that her health care manager is trying to wean steroid administration. She completed a ten-day course of amoxicillin. Patient still feels like her shortness of breath has not been improving. Patient reevaluated at bedside at 5:05 PM found to be stable medical condition though she does show some signs of dyspnea and does have significant wheezing bilaterally. Disposition options were discussed. Patient states that her symptoms have not been improving. She is agreeable for observation admission with consultation to pulmonology. [facility] (Jann Thompson) Disposition <Zuhair De Jesus - Last Filed: 11/16/22 16:10> Decision Time: 17:06 <Jann Thompson - Last Filed: 11/16/22 17:06> Clinical Impression: Status asthmaticus Disposition: ADMITTED IP TO THIS [facility] Condition: Fair Referrals: Magnus Pearson MD [Primary Care Provider] - 1-2 days
[2022-11-16] MEDS ORDERED: ALBUTEROL NEBULIZED 2.5 MG/3 ML INHALATION STA ×4 (15:24→16:03)
--- NOTE | 2022-11-16 15:27 | XR ---
EXAMINATION TYPE: XR chest 2V DATE OF EXAM: 11/16/2022 COMPARISON: 10/30/2022 HISTORY: Short of breath TECHNIQUE: 2 view FINDINGS: Heart is normal. Lungs are clear. Diaphragm is normal. Bony thorax is intact. There is spur ring in the thoracic spine. IMPRESSION: No active cardiopulmonary disease. No change.
[2022-11-16] MEDS ORDERED: NALOXONE 0.4 MG/ML 1 ML VIAL IVP PRN (17:03)
[2022-11-16] MEDS: IPRATROPIUM-ALBUTEROL 3 ML NEB INHALATION SCH (21:35)
[2022-11-16] MEDS ORDERED: ALBUTEROL NEBULIZED 2.5 MG/3 ML INHALATION PRN (23:01)
[2022-11-16] MEDS: TROSPIUM CHLORIDE 20 MG TABLET PO SCH (23:42)
[2022-11-16] MEDS: atenoloL 25 MG TAB PO SCH (23:42)
[2022-11-16] MEDS: DIGOXIN 250 MCG TAB PO SCH (23:42)
[2022-11-16] MEDS: lisinopriL 5 MG TAB PO SCH (23:42)
[2022-11-17] MEDS: ALBUTEROL NEBULIZED 2.5 MG/3 ML INHALATION SCH ×3 (07:22→20:22)
[2022-11-17] MEDS: IPRATROPIUM-ALBUTEROL 3 ML NEB INHALATION SCH ×4 (07:22→20:22)
[2022-11-17] MEDS: atenoloL 25 MG TAB PO SCH ×2 (08:31→22:26)
[2022-11-17] MEDS: FUROSEMIDE 20 MG TAB PO SCH (08:32)
[2022-11-17] MEDS: lisinopriL 5 MG TAB PO SCH (08:32)
[2022-11-17] MEDS: MULTIVITAMINS, THERA 1 EACH TAB PO SCH (08:32)
[2022-11-17] MEDS: PANTOPRAZOLE 40 MG TABLET PO SCH (08:32)
[2022-11-17] MEDS: NYSTATIN 100,000 UNIT/ML SUSP 500,000 UNIT/5 ML CUP PO SCH ×4 (08:32→22:26)
[2022-11-17] MEDS: NON FORMULARY DRUG (Rosuvastatin Calcium [Crestor] 5 MG Tablet) PO SCH (08:33)
[2022-11-17] MEDS: TROSPIUM CHLORIDE 20 MG TABLET PO SCH ×2 (08:35→23:52)
[2022-11-17] MEDS: DIGOXIN 250 MCG TAB PO SCH ×2 (11:54→23:52)
--- NOTE | 2022-11-17 13:22 | P.CNPUL ---
History of Present Illness Consult date: 11/17/22 Requesting physician: Jann Thompson Reason for consult: dyspnea, cough, asthma Chief complaint: dyspnea, cough History of present illness: I'm seeing this patient on a general medical floor on 11/17/2022. she is in no acute distress, and is on room air. She presented to the ER yesterday with complaints of shortness of breath and persistent cough since October 30, 2022. Apparently, she did see Dr. Pearson in the office earlier this week and was started on a 10 day course of Augmentin. She also follows with Dr. Swift in the office for management of her asthma. She is reportedly maintained outpatient on albuterol inhaler, Singulair, oral prednisone 10 mg every other day. Patient denies fever, chest pain, orthopenia, syncope, heart palpitations. Her past medical history is significant for esonophilic asthma, GERD managed on Protonix, cardiomyopathy, tachycardia, overactive bladder, osteoarthritis. Most recent x-ray from 11/16/2022 showed no active cardiopulmonary disease. Patient is maintained in-patient on DuoNeb inhalation and oral prednisone every other day. she is also receiving Protonix for her GERD. She did not have any labs drawn on admission. Review of Systems REVIEW OF SYSTEMS: CONSTITUTIONAL: Denies any recent significant weight loss or weight gain. EYES: Denies change in vision. EARS, NOSE, MOUTH, THROAT: Denies headaches, denies sore throat. CARDIOVASCULAR: Denies chest pain, palpitations or syncopal episodes. RESPIRATORY: Denies: congestion or hemoptysis. Admits persistent cough with occasional yellow sputum production, and persistent shortness of breath GASTROINTESTINAL: Denies change in appetite, denies abdominal pain GENITOURINARY: Denies hematuria, denies infections. MUSKULOSKELETAL: Denies pain, denies swelling. INTEGUMENTARY: Denies rash, denies eczema. NEUROLOGICAL: Denies recent memory loss, no recent seizure activity. PSYCHIATRIC: Denies anxiety, denies depression. HEMATOLOGIC/LYMPHATIC: Denies anemia, denies enlarged lymph nodes. Past Medical History Past Medical History: Asthma, GERD/Reflux, Osteoarthritis (OA) Additional Past Medical History / Comment(s): cardiomyopathy, elevated heart rate, overactive bladder, glaucoma, hx elevated sed rate,lt knee pain-arthritis and elmore cyst History of Any Multi-Drug Resistant Organisms: None Reported Past Surgical History: Appendectomy, Section, Hysterectomy, Orthopedic Surgery Additional Past Surgical History / Comment(s): 3 left breast biopsies, 3 needle loc on right breast- pt states all benign. lelo rotator cuff repair, lelo. hammer toe and bunionectomy, trigger finger release lelo ring fingers, meniscus repair lelo knees, carpal tunnel lelo, rt thumb fusion, lt ankle surgery, D&C, bilateral cataract surgery and laser surgery Past Anesthesia/Blood Transfusion Reactions: No Reported Reaction Past Psychological History: No Psychological Hx Reported Smoking Status: Former smoker Past Alcohol Use History: None Reported Additional Past Alcohol Use History / Comment(s): smoker 6 years 1-1 1/2 pack per day quit 1973 Past Drug Use History: None Reported - Past Family History Mother Family Medical History: No Reported History Medications and Allergies Home Medications Medication Instructions Recorded Confirmed Type Enalapril [Vasotec] 5 mg PO DAILY 07/16/14 11/16/22 History Rosuvastatin Calcium [Crestor] 5 mg PO DAILY 07/16/14 11/16/22 History Solifenacin Succinate [Vesicare] 10 mg PO HS 07/16/14 11/16/22 History atenoloL [Tenormin] 25 mg PO BID 07/16/14 11/16/22 History Latanoprost Ophth [Xalatan 0.005%] 1 drops BOTH EYES HS 08/17/17 11/16/22 History Albuterol Inhaler [Ventolin Hfa 2 puff INHALATION RT-QID PRN 12/16/20 11/16/22 History Inhaler] Furosemide [Lasix] 20 mg PO MOWEFR 12/16/20 11/16/22 History Digoxin 250 mcg PO DAILY 04/15/21 11/16/22 History Albuterol Nebulized [Ventolin 2.5 mg INHALATION RT-TID 11/16/22 11/16/22 History Nebulized] Carboxymethylcellulose Sodium 1 drop BOTH EYES TID PRN 11/16/22 11/16/22 History [Refresh Tears] Codeine Phosphate/Guaifenesin 10 ml PO Q4H PRN 11/16/22 11/16/22 History [Codeine Phosphate/Guaifenesin 10-100 mg/5 ml] Esomeprazole Magnesium [NexIUM] 20 mg PO DAILY 11/16/22 11/16/22 History Montelukast Sodium [Singulair] 10 mg PO HS 11/16/22 11/16/22 History Multivit with Calcium,Iron,Min 1 tab PO DAILY 11/16/22 11/16/22 History [Women's Multivitamin] Nystatin 100,000 Unit/ml Susp 5 ml PO QID 11/16/22 11/16/22 History [Mycostatin Oral Susp] predniSONE 10 mg PO Q48H 11/16/22 11/16/22 History Allergies Allergy/AdvReac Type Severity Reaction Status Date / Time benzonatate AdvReac Nausea & Verified 11/16/22 17:37 Vomiting dexamethasone AdvReac Nausea & Verified 11/16/22 17:37 Vomiting doxycycline AdvReac Nausea & Verified 11/16/22 17:37 Vomiting pravastatin sodium AdvReac Unknown Verified 11/16/22 17:37 [From Pravachol] Sulfa (Sulfonamide AdvReac Unknown Verified 11/16/22 17:37 Antibiotics) Physical Exam Vitals: Vital Signs Temp Pulse Pulse Resp BP BP Pulse Ox 11/17/22 11:41 90 11/17/22 11:31 90 11/17/22 07:49 98 F 90 20 135/74 97 11/17/22 03:12 97.7 F 83 17 153/78 100 11/16/22 19:33 98.0 F 104 H 18 158/75 98 11/16/22 18:00 98.6 F 103 H 18 154/78 96 11/16/22 17:47 98.9 F 106 H 20 152/63 94 L 11/16/22 16:25 100 11/16/22 16:16 100 11/16/22 16:05 100 11/16/22 15:56 92 11/16/22 15:42 90 11/16/22 15:40 95 11/16/22 15:27 92 11/16/22 14:48 20 11/16/22 14:46 97.8 F 100 22 172/82 97 Intake and Output 11/16/22 11/17/22 11/17/22 22:59 06:59 14:59 Other: Voiding Method Toilet Toilet # Voids 1 2 Weight 80.286 kg GENERAL EXAM: Alert, active, comfortable in no apparent distress. HEAD: Normocephalic. EYES: Normal reaction of pupils, equal size. NOSE: Clear with pink turbinates. THROAT: No erythema or exudates. NECK: No masses, no JVD. CHEST: No chest wall deformity. LUNGS: Equal air entry with no crackles, rhonchi or dullness. Expiratory wheezes heard bilaterally and throughout. No cough during my visit CVS: S1 and S2 normal with no audible murmur, regular rhythm. ABDOMEN: No hepatosplenomegaly, normal bowel sounds, no guarding or rigidity. SPINE: No scoliosis or deformity SKIN: No rashes CENTRAL NERVOUS SYSTEM: No focal deficits, tone is normal in all 4 extremities. EXTREMITIES: There is no peripheral edema. No clubbing, no cyanosis. Peripheral pulses are intact. Results - Diagnostic Findings Chest x-ray: image reviewed Assessment and Plan Assessment: acute status asthmaticus asthma with acute exacerbation. found to have high eosinophil count on previous admission, and may qualify biologic agent GERD without esophagitis. Currently managed with Protonix. cardiomyopathy tachycardia Plan: chest x-ray reviewed we'll order CBC and BMP to be reviewed tomorrow. we'll discontinue by mouth prednisone and add Solu-Medrol Continue DuoNeb inhalation start Symbicort inhaler continue Protonix for management of GERD I have personally seen and examined the patient, performed the documentation and the assessment and plan as written. Number of minutes spent on the visit: 20 Time with Patient: Greater than 30
[2022-11-17] MEDS: methylPREDNISolone SOD SUCCI 40 MG/ML 1 ML VIAL IV SCH ×2 (16:50→22:27)
[2022-11-17] MEDS: SYMBICORT 160-4.5 MCG INHALER INHALATION SCH (20:23)
--- NOTE | 2022-11-17 21:32 | P.HPIM ---
History of Present Illness H&P Date: 11/17/22 Chief Complaint: Shortness of breath Patient is a 77-year-old female with a known history of asthma, osteoarthritis and GERD, cardiomyopathy and prior history of smoking presents to ER with complaints of worsening cough and shortness of breath. Patient states that she has been having difficulty in breathing since October 24 and was seen by Dr. Swift. Patient was started on prednisone dose and was taking 10 mg every other day along with albuterol breathing treatments. Patient was also seen by Dr. Leon around October 30 and was started on antibiotics in the form of amoxicillin which she completed the course, last dose was yesterday. Patient is still having cough and occasional sputum production. Presented to ER due to her symptoms not resolving completely. Otherwise patient denies any complaints of chest pain. No complaints of nausea vomiting abdominal pain or diarrhea. No dysuria or hematuria. No leg swelling. No headache or dizziness or lightheadedness. Chest x-ray showed no acute cardiopulmonary disease. No change. EKG showed sinus tachycardia with occasional ventricular premature complexes. Laboratory data most recently done on 10/30/2022 showed WBC 8.8 hemoglobin 13.6 and platelets 216. Sodium 142 potassium 3.9 chloride 107 bicarb is 26 BUN 10 creatinine 0.75 and A1c 6.1 Eosinophil count was 1119 Review of Systems Constitutional: Patient denies any fever or chills . no Generalized weakness. Abdomen: Patient denied any nausea or vomiting or abd. pain Cardiovascular: Patient denies any chest pain or short of breath no palpitations. Respiratory: Patient does complain of cough without no sputum production. Shortness of breath. wheezing. Neurologic: Patient denied any numbness or tingling headache. Musculoskeletal: Patient denies any complaints of joint swelling or deformity. Skin: Negative Psychiatric: Negative Endocrine: No heat or cold intolerance. No recent weight gain. Genitourinary: No dysuria or hematuria. All other 14 point ROS negative except the above Past Medical History Past Medical History: Asthma, GERD/Reflux, Osteoarthritis (OA) Additional Past Medical History / Comment(s): cardiomyopathy, elevated heart rate, overactive bladder, glaucoma, hx elevated sed rate,lt knee pain-arthritis and elmore cyst History of Any Multi-Drug Resistant Organisms: None Reported Past Surgical History: Appendectomy, Section, Hysterectomy, Orthopedic Surgery Additional Past Surgical History / Comment(s): 3 left breast biopsies, 3 needle loc on right breast- pt states all benign. lelo rotator cuff repair, lelo. hammer toe and bunionectomy, trigger finger release lelo ring fingers, meniscus repair lelo knees, carpal tunnel lelo, rt thumb fusion, lt ankle surgery, D&C, bilateral cataract surgery and laser surgery Past Anesthesia/Blood Transfusion Reactions: No Reported Reaction Past Psychological History: No Psychological Hx Reported Smoking Status: Former smoker Past Alcohol Use History: None Reported Additional Past Alcohol Use History / Comment(s): smoker 6 years 1-1 1/2 pack per day quit 1973 Past Drug Use History: None Reported - Past Family History Mother Family Medical History: No Reported History Medications and Allergies Home Medications Medication Instructions Recorded Confirmed Type Enalapril [Vasotec] 5 mg PO DAILY 07/16/14 11/16/22 History Rosuvastatin Calcium [Crestor] 5 mg PO DAILY 07/16/14 11/16/22 History Solifenacin Succinate [Vesicare] 10 mg PO HS 07/16/14 11/16/22 History atenoloL [Tenormin] 25 mg PO BID 07/16/14 11/16/22 History Latanoprost Ophth [Xalatan 0.005%] 1 drops BOTH EYES HS 08/17/17 11/16/22 History Albuterol Inhaler [Ventolin Hfa 2 puff INHALATION RT-QID PRN 12/16/20 11/16/22 History Inhaler] Furosemide [Lasix] 20 mg PO MOWEFR 12/16/20 11/16/22 History Digoxin 250 mcg PO DAILY 04/15/21 11/16/22 History Albuterol Nebulized [Ventolin 2.5 mg INHALATION RT-TID 11/16/22 11/16/22 History Nebulized] Carboxymethylcellulose Sodium 1 drop BOTH EYES TID PRN 11/16/22 11/16/22 History [Refresh Tears] Codeine Phosphate/Guaifenesin 10 ml PO Q4H PRN 11/16/22 11/16/22 History [Codeine Phosphate/Guaifenesin 10-100 mg/5 ml] Esomeprazole Magnesium [NexIUM] 20 mg PO DAILY 11/16/22 11/16/22 History Montelukast Sodium [Singulair] 10 mg PO HS 11/16/22 11/16/22 History Multivit with Calcium,Iron,Min 1 tab PO DAILY 11/16/22 11/16/22 History [Women's Multivitamin] Nystatin 100,000 Unit/ml Susp 5 ml PO QID 11/16/22 11/16/22 History [Mycostatin Oral Susp] predniSONE 10 mg PO Q48H 11/16/22 11/16/22 History Allergies Allergy/AdvReac Type Severity Reaction Status Date / Time benzonatate AdvReac Nausea & Verified 11/16/22 17:37 Vomiting dexamethasone AdvReac Nausea & Verified 11/16/22 17:37 Vomiting doxycycline AdvReac Nausea & Verified 11/16/22 17:37 Vomiting pravastatin sodium AdvReac Unknown Verified 11/16/22 17:37 [From Pravachol] Sulfa (Sulfonamide AdvReac Unknown Verified 11/16/22 17:37 Antibiotics) Physical Exam Vitals: Vital Signs Temp Pulse Pulse Resp BP BP Pulse Ox 11/17/22 07:49 98 F 90 20 135/74 97 11/17/22 03:12 97.7 F 83 17 153/78 100 11/16/22 19:33 98.0 F 104 H 18 158/75 98 11/16/22 18:00 98.6 F 103 H 18 154/78 96 11/16/22 17:47 98.9 F 106 H 20 152/63 94 L 11/16/22 16:25 100 11/16/22 16:16 100 11/16/22 16:05 100 11/16/22 15:56 92 11/16/22 15:42 90 11/16/22 15:40 95 11/16/22 15:27 92 11/16/22 14:48 20 11/16/22 14:46 97.8 F 100 22 172/82 97 Intake and Output 11/16/22 11/17/22 11/17/22 22:59 06:59 14:59 Other: Voiding Method Toilet Toilet # Voids 1 2 Weight 80.286 kg PHYSICAL EXAMINATION: Patient is lying in the bed comfortably, no acute distress, awake alert and oriented.. HEENT: Normocephalic. Neck is supple. Pupils reactive. Nostrils clear. Oral cavity is moist. Neck reveals no JVD, carotid bruits, or thyromegaly. CHEST EXAMINATION: Trachea is central. Symmetrical expansion. Bilateral diffuse wheezing. No rhonchi or crackles.. CARDIAC: Normal S1, S2 with no gallops. No murmurs ABDOMEN: Soft. Bowel sounds present. Nontender. No organomegaly. No abdominal bruits. Extremities: reveal no edema. No clubbing or cyanosis Neurologically awake, alert, oriented x3 with well-coordinated movements. No focal deficits noted Skin: No rash or skin lesions. Psychiatric: Coperative. Nonsuicidal, Musculoskeletal: No joint swelling or deformity. Normal range of motion. Thrombosis Risk Factor Assmnt - DVT/VTE Prophylaxis DVT/VTE Prophylaxis: Pharmacologic Prophylaxis ordered - Choose All That Apply Any of the Below Risk Factors Present?: Yes Each Factor Represents 1 point: Obesity (BMI >25) Other Risk Factors: Yes Each Risk Factor Represents 3 Points: Age 75 years or older Thrombosis Risk Factor Assessment Total Risk Factor Score: 4 Thrombosis Risk Factor Assessment Level: Moderate Risk Assessment and Plan Assessment: Acute asthma exacerbation. Possible allergic component with elevated eosinophil count during recent evaluation. GERD Osteoarthritis Prior history of smoking quit 1974 Obesity BMI 34.6 Cardiomyopathy ejection fraction not known. DVT prophylaxis Heparin subcu Plan: Patient will be continued IV Solu-Medrol and DuoNeb inhalation. And also on Symbicort. Patient will be placed on home medications including digoxin, Lasix and lisinopril and atenolol. Pulmonary is on board. Continue with PPI and heparin subcu for DVT prophylaxis. Follow-up closely. Time with Patient: Greater than 30
[2022-11-17] MEDS: MONTELUKAST 10 MG TAB PO SCH (22:27)
[2022-11-17] MEDS: HEPARIN SODIUM,PORCINE/PF 5,000 UNIT/0.5 ML SYRINGE SQ SCH (22:27)
[2022-11-17] MEDS: LATANOPROST 0.005% OPHTH DROPS 2.5 ML BTL BOTH EYES SCH (23:52)
[2022-11-18] MEDS: ALBUTEROL NEBULIZED 2.5 MG/3 ML INHALATION SCH ×4 (07:55→20:08)
[2022-11-18] MEDS: IPRATROPIUM-ALBUTEROL 3 ML NEB INHALATION SCH ×4 (07:55→20:07)
[2022-11-18] MEDS: SYMBICORT 160-4.5 MCG INHALER INHALATION SCH ×2 (08:12→20:07)
[2022-11-18] MEDS ORDERED: predniSONE 10 MG TAB PO SCH (09:00)
[2022-11-18] MEDS: HEPARIN SODIUM,PORCINE/PF 5,000 UNIT/0.5 ML SYRINGE SQ SCH ×2 (09:10→16:03)
[2022-11-18] MEDS: TROSPIUM CHLORIDE 20 MG TABLET PO SCH ×3 (09:11→22:09)
[2022-11-18] MEDS: NYSTATIN 100,000 UNIT/ML SUSP 500,000 UNIT/5 ML CUP PO SCH ×4 (09:11→22:06)
[2022-11-18] MEDS: PANTOPRAZOLE 40 MG TABLET PO SCH (09:11)
[2022-11-18] MEDS: MULTIVITAMINS, THERA 1 EACH TAB PO SCH (09:12)
[2022-11-18] MEDS: predniSONE 20 MG TAB PO SCH (09:12)
[2022-11-18] MEDS: atenoloL 25 MG TAB PO SCH ×2 (09:12→22:06)
[2022-11-18] MEDS: lisinopriL 5 MG TAB PO SCH ×2 (09:12→09:18)
[2022-11-18] MEDS: NON FORMULARY DRUG (Rosuvastatin Calcium [Crestor] 5 MG Tablet) PO SCH (09:18)
[2022-11-18] MEDS: ARTIFICIAL TEARS-HYPROMELLOSE DROPS 15 ML BTL BOTH EYES PRN (09:24)
[2022-11-18] MEDS: guaiFENesin-Coden 100-10MG/5ML 10 ML CUP PO PRN ×2 (09:48→22:14)
[2022-11-18 10:30] LABS: Basophils # (A) 0.01 X 10*3/uL (0.00-0.10); Basophils % (A) 0.1 %; Eosinophils # (A) 0 X 10*3/uL (0.04-0.35); Eosinophils % (A) 0 %; HCT 41.5 % (37.2-46.3); HGB 13.4 g/dL (12.0-15.0); Immature Grans, Automated 0.3 %; Lymphocytes % (A) 13.9 %; MCH 28.2 pg (27.0-32.0); MCHC 32.3 g/dL (32.0-37.0); MCV 87.2 fL (80.0-97.0); Mean Platelet Volume 9.8 fL (9.5-12.2); Monocytes # (A) 0.21 X 10*3/uL (0.20-1.00); Monocytes % (A) 1.6 %; NRBC Per 100 WBC 0 /100 WBCS (0.0-0.0); Neutrophils # (A) 10.91 X 10*3/uL (1.80-7.70); Neutrophils % (A) 84.1 %; Platelet Count 282 X 10*3/uL (140-440); RBC 4.76 X 10*6/uL (4.10-5.20); RDW 13.2 % (11.5-14.5); WBC 12.97 X 10*3/uL (4.50-10.00)
[2022-11-18 10:37] LABS: African American GFR (CKD) 91.3 (60.0-200.0); Anion Gap 9.5 mmol/L (10.00-18.00); BUN/Creat Ratio 18.95 Ratio (12.00-20.00); Blood Urea Nitrogen 14.1 mg/dL (9.0-27.0); Calcium 9.8 mg/dL (8.7-10.3); Carbon Dioxide 26.9 mmol/L (20.0-27.5); Non-African American GFR(CKD) 78.7 (60.0-200.0); Potassium 4.6 mmol/L (3.5-5.5)
--- NOTE | 2022-11-18 11:10 | P.PN ---
Subjective Progress Note Date: 11/18/22 Principal diagnosis: status asthmaticus I'm seeing this patient on a general medical floor on 11/17/2022. she is in no acute distress, and is on room air. She presented to the ER yesterday with complaints of shortness of breath and persistent cough since October 30, 2022. Apparently, she did see Dr. Pearson in the office earlier this week and was started on a 10 day course of Augmentin. She also follows with Dr. Swift in the office for management of her asthma. She is reportedly maintained outpatient on albuterol inhaler, Singulair, oral prednisone 10 mg every other da y. Patient denies fever, chest pain, orthopenia, syncope, heart palpitations. Her past medical history is significant for esonophilic asthma, GERD managed on Protonix, cardiomyopathy, tachycardia, overactive bladder, osteoarthritis. Most recent x-ray from 11/16/2022 showed no active cardiopulmonary disease. Patient is maintained in-patient on DuoNeb inhalation and oral prednisone every other day. she is also receiving Protonix for her GERD. She did not have any labs drawn on admission. I'm reevaluating this patient on a general medical floor on 11/18/2022. She appears fairly comfortable, up in bed, in no acute distress, and on room air. patient reports that her shortness of breath and wheezing have improved. she is being managed on DuoNeb inhalations, Symbicort inhaler, IV Solu-Medrol, and Singulair. no new x-ray to review today.CBC from today shows mild leukocytosis with a WBC count of 13, hemoglobin 13.4, hematocrit 42, platelets 282,000. BMP is also stable today sodium of 140, potassium 4.6, chloride 104, serum CO2 27, BUN 14, creatinine 0.7, glucose 159. she is receiving heparin for DVT prophylaxis, and Protonix for GI prophylaxis. vital signs remained stable. Objective - Vital Signs Vital signs: Vital Signs Temp 98 F 11/18/22 07:00 Pulse 80 11/18/22 08:13 Resp 20 11/18/22 08:00 BP 169/83 11/18/22 07:00 Pulse Ox 96 11/18/22 07:00 FiO2 Intake & Output 11/17/22 11/18/22 11/18/22 18:59 06:59 18:59 Intake Total 222 180 Balance 222 180 Intake: Oral 222 180 Other: Voiding Method Toilet Toilet # Voids 1 1 - Exam GENERAL EXAM: Alert, active, comfortable in no apparent distress. HEAD: Normocephalic. EYES: Normal reaction of pupils, equal size. NOSE: Clear with pink turbinates. THROAT: No erythema or exudates. NECK: No masses, no JVD. CHEST: No chest wall deformity. LUNGS: Equal air entry with no crackles, rhonchi or dullness. Faint expiratory wheezes heard bilaterally and throughout with increased aeration. No cough during my visit CVS: S1 and S2 normal with no audible murmur, regular rhythm. ABDOMEN: No hepatosplenomegaly, normal bowel sounds, no guarding or rigidity. SPINE: No scoliosis or deformity SKIN: No rashes CENTRAL NERVOUS SYSTEM: No focal deficits, tone is normal in all 4 extremities. EXTREMITIES: There is no peripheral edema. No clubbing, no cyanosis. Pallavi pheral pulses are intact. - Labs CBC & Chem 7: 11/18/22 06:40 11/18/22 06:40 Labs: Abnormal Lab Results - Last 24 Hours (Table) 11/18/22 11/18/22 Range/Units 06:40 06:40 WBC 12.97 H (4.50-10.00) X 10*3/uL Neutrophils # 10.91 H (1.80-7.70) X 10*3/uL Eosinophils # 0 L (0.04-0.35) X 10*3/uL Anion Gap 9.50 L (10.00-18.00) mmol/L Glucose 159 H (70-110) mg/dL Assessment and Plan Assessment: acute status asthmaticus asthma with acute exacerbation. found to have high eosinophil count on previous admission, and may qualify biologic agent. Respiratory status stabilized. GERD without esophagitis. Currently managed with Protonix. cardiomyopathy tachycardia Plan: medications and labs reviewed we'll discontinue IV Solu-Medrol and start prednisone taper. Continue DuoNeb inhalation continue Symbicort inhaler continue Protonix for management of GERD overall, I feel the patient's respiratory status has stabilized and may be managed outpatient. I have personally seen and examined the patient, performed the documentation and the assessment and plan as written. Number of minutes spent on the visit: 10 Time with Patient: Less than 30
[2022-11-18] MEDS: DIGOXIN 250 MCG TAB PO SCH (22:06)
[2022-11-18] MEDS: MONTELUKAST 10 MG TAB PO SCH (22:06)
[2022-11-18] MEDS: LATANOPROST 0.005% OPHTH DROPS 2.5 ML BTL BOTH EYES SCH (22:06)
[2022-11-19] MEDS: HEPARIN SODIUM,PORCINE/PF 5,000 UNIT/0.5 ML SYRINGE SQ SCH ×2 (00:05→08:15)
[2022-11-19] MEDS: ALBUTEROL NEBULIZED 2.5 MG/3 ML INHALATION SCH ×2 (06:54→11:10)
[2022-11-19] MEDS: IPRATROPIUM-ALBUTEROL 3 ML NEB INHALATION SCH ×2 (06:55→11:10)
[2022-11-19] MEDS: SYMBICORT 160-4.5 MCG INHALER INHALATION SCH (06:55)
[2022-11-19 07:36] VITALS: BP 143/74; RESP 18; TEMP 97.8
[2022-11-19] MEDS: FUROSEMIDE 20 MG TAB PO SCH (08:14)
[2022-11-19] MEDS: MULTIVITAMINS, THERA 1 EACH TAB PO SCH (08:14)
[2022-11-19] MEDS: predniSONE 20 MG TAB PO SCH (08:15)
[2022-11-19] MEDS: PANTOPRAZOLE 40 MG TABLET PO SCH (08:15)
[2022-11-19] MEDS: NYSTATIN 100,000 UNIT/ML SUSP 500,000 UNIT/5 ML CUP PO SCH (08:15)
[2022-11-19] MEDS: atenoloL 25 MG TAB PO SCH (08:15)
[2022-11-19] MEDS: lisinopriL 5 MG TAB PO SCH (08:15)
[2022-11-19] MEDS: NON FORMULARY DRUG (Rosuvastatin Calcium [Crestor] 5 MG Tablet) PO SCH (08:16)
[2022-11-19] MEDS: TROSPIUM CHLORIDE 20 MG TABLET PO SCH (08:16)
[2022-11-19] MEDS: ARTIFICIAL TEARS-HYPROMELLOSE DROPS 15 ML BTL BOTH EYES PRN (08:19)
[2022-11-19 08:59] LABS: Basophils # (A) 0.03 X 10*3/uL (0.00-0.10); Basophils % (A) 0.2 %; Eosinophils # (A) 0.06 X 10*3/uL (0.04-0.35); Eosinophils % (A) 0.4 %; HCT 41.4 % (37.2-46.3); HGB 12.6 g/dL (12.0-15.0); Immature Grans, Automated 0.4 %; Lymphocytes # (A) 4.59 X 10*3/uL (0.90-5.00); Lymphocytes % (A) 32.4 %; MCH 27.8 pg (27.0-32.0); MCHC 30.4 g/dL (32.0-37.0); MCV 91.4 fL (80.0-97.0); Mean Platelet Volume 10.1 fL (9.5-12.2); Monocytes # (A) 0.78 X 10*3/uL (0.20-1.00); Monocytes % (A) 5.5 %; NRBC Per 100 WBC 0 /100 WBCS (0.0-0.0); Neutrophils # (A) 8.65 X 10*3/uL (1.80-7.70); Neutrophils % (A) 61.1 %; Platelet Count 253 X 10*3/uL (140-440); RBC 4.53 X 10*6/uL (4.10-5.20); RDW 13.4 % (11.5-14.5); WBC 14.16 X 10*3/uL (4.50-10.00)
[2022-11-19 09:23] LABS: African American GFR (CKD) 72.5 (60.0-200.0); Anion Gap 10.8 mmol/L (10.00-18.00); BUN/Creat Ratio 17.11 Ratio (12.00-20.00); Blood Urea Nitrogen 15.4 mg/dL (9.0-27.0); Calcium 9.3 mg/dL (8.7-10.3); Carbon Dioxide 25.2 mmol/L (20.0-27.5); Non-African American GFR(CKD) 62.5 (60.0-200.0); Potassium 4.3 mmol/L (3.5-5.5)
--- NOTE | 2022-11-19 10:28 | P.PN ---
Subjective Progress Note Date: 11/18/22 Patient is a 77-year-old female with a known history of asthma, osteoarthritis and GERD, cardiomyopathy and prior history of smoking presents to ER with complaints of worsening cough and shortness of breath. Patient states that she has been having difficulty in breathing since October 24 and was seen by Dr. Swift. Patient was started on prednisone dose and was taking 10 mg every other day along with albuterol breathing treatments. Patient was also seen by Dr. Leon around October 30 and was started on antibiotics in the form of amoxicillin which she completed the course, last dose was yesterday. Patient is still having cough and occasional sputum production. Presented to ER due to her symptoms not resolving completely. Otherwise patient denies any complaints of chest pain. No complaints of nausea vomiting abdominal pain or diarrhea. No dysuria or hematuria. No leg swelling. No headache or dizziness or lightheadedness. Chest x-ray showed no acute cardiopulmonary disease. No change. EKG showed sinus tachycardia with occasional ventricular premature complexes. Laboratory data most recently done on 10/30/2022 showed WBC 8.8 hemoglobin 13.6 and platelets 216. Sodium 142 potassium 3.9 chloride 107 bicarb is 26 BUN 10 creatinine 0.75 and A1c 6.1 Eosinophil count was 1119 11/18/2022 Patient is currently sitting in the bed. Awake alert and oriented. Complaints of cough and is also having wheezing on examination. Patient is not back to baseline yet. IV steroids changed to prednisone 40 g daily. No complaints of fever or chills. No nausea vomiting abdominal pain or di arrhea. Denied any dysuria or hematuria. Anticipate discharge in the morning. Current medications reviewed. Objective - Vital Signs Vital signs: Vital Signs Temp 98.4 F 11/18/22 19:05 Pulse 72 11/18/22 20:21 Resp 18 11/18/22 19:05 BP 133/74 11/18/22 19:05 Pulse Ox 98 11/18/22 19:05 FiO2 Intake & Output 11/18/22 11/18/22 11/19/22 06:59 18:59 06:59 Intake Total 624 Balance 624 Intake: Oral 624 Other: Voiding Method Toilet Toilet # Voids 1 3 - Exam PHYSICAL EXAMINATION: Patient is lying in the bed comfortably, no acute distress, awake alert and oriented.. HEENT: Normocephalic. Neck is supple. Pupils reactive. Nostrils clear. Oral cavity is moist. Neck reveals no JVD, carotid bruits, or thyromegaly. CHEST EXAMINATION: Trachea is central. Symmetrical expansion. Bilateral wheezing. No rhonchi or crackles.. CARDIAC: Normal S1, S2 with no gallops. No murmurs ABDOMEN: Soft. Bowel sounds present. Nontender. No organomegaly. No abdominal bruits. Extremities: reveal no edema. No clubbing or cyanosis Neurologically awake, alert, oriented x3 with well-coordinated movements. No focal deficits noted Skin: No rash or skin lesions. Psychiatric: Coperative. Nonsuicidal, Musculoskeletal: No joint swelling or deformity. Normal range of motion. - Labs CBC & Chem 7: 11/19/22 05:16 11/19/22 05:16 Labs: Abnormal Lab Results - Last 24 Hours (Table) 11/18/22 11/18/22 Range/Units 06:40 06:40 WBC 12.97 H (4.50-10.00) X 10*3/uL Neutrophils # 10.91 H (1.80-7.70) X 10*3/uL Eosinophils # 0 L (0.04-0.35) X 10*3/uL Anion Gap 9.50 L (10.00-18.00) mmol/L Glucose 159 H (70-110) mg/dL Assessment and Plan Assessment: Acute asthma exacerbation. Possible allergic component with elevated eosinophil count during recent evaluation. GERD Osteoarthritis Prior history of smoking quit 1974 Obesity BMI 34.6 Cardiomyopathy ejection fraction not known. DVT prophylaxis Heparin subcu Plan: Patient will be continued IV Solu-Medrol and DuoNeb inhalation. IV salmeterol change to prednisone 40 mg daily. Continue with Symbicort. Continue with home medications including digoxin, Lasix and lisinopril and atenolol. Pulmonary is on board. Patient is still symptomatic with wheezing and cough. Anticipate discharge in next 24 hours. Continue with PPI and heparin subcu for DVT prophylaxis. Follow-up closely.
[2022-11-19 11:22] VITALS: PULSE 70
--- NOTE | 2022-11-19 13:54 | P.PN ---
Subjective Progress Note Date: 11/19/22 Principal diagnosis: status asthmaticus I'm seeing this patient on a general medical floor on 11/17/2022. she is in no acute distress, and is on room air. She presented to the ER yesterday with complaints of shortness of breath and persistent cough since October 30, 2022. Apparently, she did see Dr. Pearson in the office earlier this week and was started on a 10 day course of Augmentin. She also follows with Dr. Swift in the office for management of her asthma. She is reportedly maintained outpatient on albuterol inhaler, Singulair, oral prednisone 10 mg every other da y. Patient denies fever, chest pain, orthopenia, syncope, heart palpitations. Her past medical history is significant for esonophilic asthma, GERD managed on Protonix, cardiomyopathy, tachycardia, overactive bladder, osteoarthritis. Most recent x-ray from 11/16/2022 showed no active cardiopulmonary disease. Patient is maintained in-patient on DuoNeb inhalation and oral prednisone every other day. she is also receiving Protonix for her GERD. She did not have any labs drawn on admission. I'm reevaluating this patient on a general medical floor on 11/18/2022. She appears fairly comfortable, up in bed, in no acute distress, and on room air. patient reports that her shortness of breath and wheezing have improved. she is being managed on DuoNeb inhalations, Symbicort inhaler, IV Solu-Medrol, and Singulair. no new x-ray to review today.CBC from today shows mild leukocytosis with a WBC count of 13, hemoglobin 13.4, hematocrit 42, platelets 282,000. BMP is also stable today sodium of 140, potassium 4.6, chloride 104, serum CO2 27, BUN 14, creatinine 0.7, glucose 159. she is receiving heparin for DVT prophylaxis, and Protonix for GI prophylaxis. vital signs remained stable. I'm reevaluating this patient in general medical floor on 11/11/2022. she was cleared for discharge yesterday. Respiratory status seems to be at baseline, and is on room air. Patient denies shortness of breath, wheezing, cough, fever. She is being managed on DuoNeb inhalation, Symbicort inhaler, prednisone taper, and Singulair. No new x-ray to review today. CBC remained stable with some mild leukocytosis WC count is 14, hemoglobin 12.6, hematocrit 41, platelets 253,000. BMP is also stable sodium of 140, potassium 4.3, chloride 104, serum CO2 25, BUN 15.4, creatinine 0.9, glucose 122. Vital signs are all stable on room air. I recommended finishing treatment outpatient Objective - Vital Signs Vital signs: Vital Signs Temp 97.8 F 11/19/22 07:00 Pulse 70 11/19/22 11:21 Resp 18 11/19/22 08:00 BP 143/74 11/19/22 07:00 Pulse Ox 99 11/19/22 07:00 FiO2 Intake & Output 11/18/22 11/19/22 11/19/22 18:59 06:59 18:59 Intake Total 624 120 Balance 624 120 Intake: Oral 624 120 Other: Voiding Method Toilet Toilet Toilet # Voids 3 3 - Exam GENERAL EXAM: Alert, active, comfortable in no apparent distress. HEAD: Normocephalic. EYES: Normal reaction of pupils, equal size. NOSE: Clear with pink turbinates. THROAT: No erythema or exudates. NECK: No masses, no JVD. CHEST: No chest wall deformity. LUNGS: Equal air entry with no wheezes, crackles, rhonchi or dullness. No cough CVS: S1 and S2 normal with no audible murmur, regular rhythm. ABDOMEN: No hepatosplenomegaly, normal bowel sounds, no guarding or rigidity. SPINE: No scoliosis or deformity SKIN: No rashes CENTRAL NERVOUS SYSTEM: No focal deficits, tone is normal in all 4 extremities. EXTREMITIES: There is no peripheral edema. No clubbing, no cyanosis. Peripheral pulses are intact. - Labs CBC & Chem 7: 11/19/22 05:16 11/19/22 05:16 Labs: Abnormal Lab Results - Last 24 Hours (Table) 11/19/22 11/19/22 Range/Units 05:16 05:16 WBC 14.16 H (4.50-10.00) X 10*3/uL MCHC 30.4 L (32.0-37.0) g/dL Immature Gran # 0.05 H (0.00-0.04) X 10*3/uL Neutrophils # 8.65 H (1.80-7.70) X 10*3/uL Glucose 122 H (70-110) mg/dL Assessment and Plan Assessment: acute status asthmaticus asthma with acute exacerbation. found to have high eosinophil count on previous admission, and may qualify biologic agent. Respiratory status stabilized. GERD without esophagitis. Currently managed with Protonix. cardiomyopathy tachycardia Plan: medications and labs reviewed we'll discontinue IV Solu-Medrol and start prednisone taper. Continue DuoNeb inhalation continue Symbicort inhaler continue Protonix for management of GERD overall, I feel the patient's respiratory status has stabilized and may be managed outpatient. Will schedule follow-up in the office with Dr. Swift 1 week. I have personally seen and examined the patient, performed the documentation and the assessment and plan as written. Number of minutes spent on the visit: 10 Time with Patient: Less than 30
== END 2022-11-19 12:08 | disposition home or self-care (01) ==
LOC: EC 14:40 → 6NMEDSUR 17:03
PROVIDERS: ADMIT Internal Medicine; ATTEND Internal Medicine
DX: J45.902 Unspecified asthma with status asthmaticus (principal); I42.9 Cardiomyopathy, unspecified; N32.81 Overactive bladder; R00.0 Tachycardia, unspecified; K21.9 Gastro-esophageal reflux disease without esophagitis; E66.9 Obesity, unspecified; M71.22 Synovial cyst of popliteal space [Baker], left knee; H40.9 Unspecified glaucoma; Z87.891 Personal history of nicotine dependence; Z79.899 Other long term (current) drug therapy; Z88.2 Allergy status to sulfonamides; Z88.8 Allergy status to other drugs, medicaments and biological substances; Z90.710 Acquired absence of both cervix and uterus; Z98.42 Cataract extraction status, left eye; Z98.41 Cataract extraction status, right eye; Z68.34 Body mass index [BMI] 34.0-34.9, adult
CPT/HCPCS: 96376; 96372 ×4; 96374; 99285; 94640 ×8; 93005; 80048 ×2; 85025 ×2; 71046; G0378 ×4; J2920; J2930; J7512 ×2; J1644 ×3

== ENCOUNTER → 2023-02-16 | Outpatient (CLI) | payer MEDICARE, MEDICAID ==
[2023-02-16 14:51] LABS: HCT 44.7 % (37.2-46.3); HGB 13.6 g/dL (12.0-15.0); MCH 27.6 pg (27.0-32.0); MCHC 30.4 g/dL (32.0-37.0); MCV 90.9 fL (80.0-97.0); Mean Platelet Volume 9.8 fL (9.5-12.2); NRBC Per 100 WBC 0 /100 WBCS (0.0-0.0); Platelet Count 254 X 10*3/uL (140-440); RBC 4.92 X 10*6/uL (4.10-5.20); RDW 13.5 % (11.5-14.5)
[2023-02-16 16:25] LABS: Basophils # (M) 0.32 X 10*3/uL (0.00-0.10); Eosinophils # (M) 0 X 10*3/uL (0.04-0.35); Monocytes # (M) 0.97 X 10*3/uL (0.20-1.00); Neutrophils % (M) 50 %
[2023-02-16 20:48] LABS: African American GFR (CKD) 70.2 (60.0-200.0); Blood Urea Nitrogen 17.6 mg/dL (9.0-27.0); Carbon Dioxide 29.4 mmol/L (20.0-27.5); Non-African American GFR(CKD) 60.6 (60.0-200.0); Potassium 4.3 mmol/L (3.5-5.5)
== END | disposition home or self-care (01) ==
LOC: LABPAT 09:17
PROVIDERS: ATTEND Internal Medicine Cardiovascular Disease
DX: Z01.812 Encounter for preprocedural laboratory examination (principal); I42.9 Cardiomyopathy, unspecified; R00.0 Tachycardia, unspecified
CPT/HCPCS: 80051; 82565; 84520; 85025

== ENCOUNTER 2023-02-27 07:26 | Inpatient (IN) | payer MEDICARE, MEDICAID ==
[~2023-02-27 07:26] MED LIST changes: +ALPRAZolam 0.25 MG TAB PO PRN; +ALPRAZolam 0.5 MG TAB PO PRN; +ASPIRIN 325 MG TAB PO STA; +ATORVASTATIN 80 MG TAB PO STA; -BAMLANIVIMAB (EUA) 700 MG, ETESEVIMAB (EUA) 1,400 MG in SODIUM CHLORIDE 0.9% 100 ML IVPB NR; +HEPARIN SODIUM,PORCINE 10,000 UNIT in SODIUM CHLORIDE 0.9% 1,000 ML IRRIGATION PRN; +HEPARIN SODIUM,PORCINE 2,500 UNIT in SODIUM CHLORIDE 0.9% 250 ML IRRIGATION PRN; +NITROGLYCERIN SL TABS 0.4 MG TAB SUBLINGUAL PRN; +SODIUM CHLORIDE 0.9% 1,000 ML in EMPTY BAG 1 BAG IV SCH; -SODIUM CHLORIDE 0.9% 50 ML IVPB ONE; -SODIUM CHLORIDE 0.9% 500 ML 500 ML in EMPTY BAG 1 BAG IV PRN
[2023-02-27] MEDS ORDERED: ASPIRIN 81 MG ONE (08:03)
[2023-02-27 08:16] LABS: Glucose,Whole Blood 94 mg/dL (70-110)
[2023-02-27] MEDS ORDERED: HEPARIN SODIUM 1,000 UN/ML (10ML VL) ONE ×2 (08:42)
[2023-02-27] MEDS ORDERED: fentaNYL (PF) 50 MCG/ML 2 ML AMP ONE (08:42)
[2023-02-27] MEDS ORDERED: VERAPAMIL 2.5 MG/ML 2 ML AMP ONE ×2 (08:42→09:48)
[2023-02-27] MEDS: fentaNYL (PF) 50 MCG/ML 2 ML AMP IVP ONE ×2 (09:16→09:49)
[2023-02-27] MEDS ORDERED: MIDAZOLAM 2 MG/2 ML VIAL IVP ONE (09:16)
[2023-02-27] MEDS ORDERED: LIDOCAINE 1% INJ 10MG/ML (5 ML VIAL-PF) SQ ONE (09:18)
[2023-02-27] MEDS ORDERED: VERAPAMIL SYRINGE (5 MG/10 ML) INTRAARTER ONE (09:24)
[2023-02-27] MEDS ORDERED: HEPARIN SODIUM 1,000 UN/ML (10ML VL) IVP ONE (09:32)
[2023-02-27] MEDS ORDERED: IOPAMIDOL-370 125ML BTL INJ ONE (10:13)
[2023-02-27] MEDS ORDERED: RX INFO: IV CONTRAST WAS GIVEN 1 EACH MISC MISCELLANE PRN (11:17)
[2023-02-27] MEDS: SODIUM CHLORIDE 0.9% 1,000 ML IV SCH ×2 (13:46→23:26)
[2023-02-27] MEDS ORDERED: ARTIFICIAL TEARS-HYPROMELLOSE DROPS 15 ML BTL BOTH EYES PRN (13:52)
[2023-02-27] MEDS ORDERED: ALBUTEROL NEBULIZED 2.5 MG/3 ML INHALATION PRN (13:52)
[2023-02-27] MEDS ORDERED: guaiFENesin-Coden 100-10MG/5ML 10 ML CUP PO PRN (13:52)
--- NOTE | 2023-02-27 13:52 | LTR ---
Dear I performed cardiac catheterization on Mary Bolaños. Detailed catheterization report is enclosed with the records. In brief, the cardiac catheterization revealed very tight distal left main and proximal LAD stenosis. The patient is being referred for bypass surgery. Thank you for giving the opportunity to participate in care of this pleasant lady. JOSEFINA / BRIAN: [id number] /
[2023-02-27] MEDS ORDERED: DEXTROSE 50% SYRINGE 50 ML IVP PRN ×2 (13:56)
[2023-02-27] MEDS ORDERED: FUROSEMIDE 20 MG TAB PO SCH (14:00)
--- NOTE | 2023-02-27 14:28 | P.GSCN ---
History of Present Illness Consult date: 02/27/23 Reason for Consult: left main coronary artery disease Requesting physician: Arias Negrete History of present illness: This is a 77-year-old obese female who follows outpatient with Dr. Pearson for primary care, Dr. Negrete for cardiology, and Dr. Swift for pulmonology. She has a previous medical history of hyperlipidemia, cardiomyopathy, asthma, diabetes, previous tobacco dependence, GERD, osteoarthritis, and Covid infection in September 2022. The patient reports that she has had ongoing cold and congestion type symptoms with shortness of breath intermittently over the last 2 years. She follows with Dr. Swift and has been prescribed steroids which helps for about a month and a half and then her symptoms return. Most recent dose of steroids was in December 2022. She denies any symptoms of chest pain, chest heaviness, palpitations, or any other symptoms. Last transthoracic echocardiogram completed in the office September 2022 demonstrated dilated left ventricle with decreased systolic function, EF 35-40%, borderline left ventricular hypertrophy, medium-size hypokinetic areas of the inferior and inferoseptal tripathi from the base to the mid wall, dilated left atrium, moderate eccentric mitral regurgitation, mild MAC, and centrally directed mild tricuspid regurgitation. Due to her cardiomyopathy she was recommended to have a heart catheterization which she has canceled multiple times due to her breathing difficulties. She was finally brought in today to undergo heart catheterization by Dr. Negrete which demonstrated left main coronary artery disease. Due to this finding consultation was placed to cardiothoracic surgery for surgical revascularization recommendations. Review of Systems Review of systems was completed and was negative except as noted - Respiratory Reports as per HPI, Reports congestion, Reports dyspnea Past Medical History Past Medical History: Asthma, Coronary Artery Disease (CAD), Diabetes Mellitus, GERD/Reflux, Hyperlipidemia, Osteoarthritis (OA) Additional Past Medical History / Comment(s): cardiomyopathy, elevated heart rate, overactive bladder, glaucoma, hx elevated sed rate,lelo knee pain-arthritis and elmore cyst, covid in 09/2022 History of Any Multi-Drug Resistant Organisms: None Reported Past Surgical History: Appendectomy, Section, Hysterectomy, Orthopedic Surgery Additional Past Surgical History / Comment(s): 3 left breast biopsies, 3 needle loc on right breast- pt states all benign. lelo rotator cuff repair, lelo. hammer toe and bunionectomy, trigger finger release lelo ring fingers, meniscus repair lelo knees, carpal tunnel lelo, rt thumb fusion, lt ankle surgery, D&C, bilateral cataract surgery and laser surgery, COLONOSCOPY , EGD WITH BIOPSY Past Anesthesia/Blood Transfusion Reactions: No Reported Reaction Smoking Status: Former smoker - Past Family History Mother History Unknown: Yes Family Medical History: Congestive Heart Failure (CHF), CVA/TIA, Hypertension Son(s) History Unknown: Yes Family Medical History: Deep Vein Thrombosis (DVT) Additional Family Medical History / Comment(s): DVT IN LEG Father Family Medical History: Congestive Heart Failure (CHF), Hypertension Medications and Allergies Home Medications Medication Instructions Recorded Confirmed Type Rosuvastatin Calcium [Crestor] 5 mg PO DAILY 07/16/14 02/27/23 History Solifenacin Succinate [Vesicare] 10 mg PO HS 07/16/14 02/27/23 History atenoloL [Tenormin] 25 mg PO BID 07/16/14 02/27/23 History Latanoprost Ophth [Xalatan 0.005%] 1 drop BOTH EYES HS 08/17/17 02/27/23 History Furosemide [Lasix] 20 mg PO MOWEFR 12/16/20 02/27/23 History Digoxin 0.25 mg PO HS 04/15/21 02/27/23 History Carboxymethylcellulose Sodium 1 drop BOTH EYES TID PRN 11/16/22 02/27/23 History [Refresh Tears] Esomeprazole Magnesium [NexIUM] 20 mg PO DAILY 11/16/22 02/27/23 History Multivit with Calcium,Iron,Min 1 tab PO DAILY 11/16/22 02/27/23 History [Women's Multivitamin] Nystatin 100,000 Unit/ml Susp 5 ml PO TID BETWEEN MEALS 11/16/22 02/25/23 History [Mycostatin Oral Susp] Ascorbic Acid [Vitamin C] 500 mg PO DAILY 12/03/22 02/27/23 History metFORMIN HCL [Glucophage] 500 mg PO 1700 01/11/23 02/27/23 History Albuterol Inhaler [Ventolin Hfa 2 puff INHALATION RT-QID PRN each 01/16/23 02/27/23 Rx Inhaler] Codeine Phosphate/Guaifenesin 10 ml PO Q4H PRN #100 ml 01/16/23 02/25/23 Rx [Codeine Phosphate/Guaifenesin 10-100 mg/5 ml] predniSONE 10 mg PO DIRECTED #30 tab 01/16/23 02/27/23 Rx Acetaminophen [Tylenol Extra 500 mg PO DAILY 02/25/23 02/25/23 History Strength] Enalapril [Vasotec] 5 mg PO HS 02/25/23 02/27/23 History Allergies Allergy/AdvReac Type Severity Reaction Status Date / Time budesonide Allergy Wheezing Verified 02/25/23 12:25 fluticasone Allergy Rapid Verified 02/25/23 12:25 Heart Rate, dizziness formoterol Allergy Wheezing, Verified 02/25/23 12:25 [From [employer]] Dizziness, Rapid Heart Rate, High BP glycopyrrolate Allergy Wheezing, Verified 02/25/23 12:25 [From [employer]] Dizziness, Rapid Heart Rate, High BP levalbuterol [From Xopenex] Allergy Wheezing, Verified 02/25/23 12:25 Dizziness azithromycin [From Zithromax] AdvReac intercts Verified 02/25/23 12:25 w/Digoxin benzonatate AdvReac Gerd Verified 02/25/23 12:25 dexamethasone AdvReac Gerd Verified 02/25/23 12:25 doxycycline AdvReac Gerd Verified 02/25/23 12:25 ipratropium AdvReac Rapid Verified 02/25/23 12:25 Heart Rate pravastatin sodium AdvReac Swelling Verified 02/25/23 12:25 [From Pravachol] and pain in legs prednisone AdvReac causes Verified 02/25/23 12:25 thrush ranitidine AdvReac Nausea & Verified 02/25/23 12:25 Vomiting & Diarrhea Sulfa (Sulfonamide AdvReac Rash/Hives Verified 02/25/23 12:25 Antibiotics) Surgical - Exam Vital Signs Temp Pulse Resp BP Pulse Ox 98.8 F 90 16 163/78 97 02/27/23 08:10 02/27/23 08:10 02/27/23 08:10 02/27/23 08:10 02/27/23 08:10 CONSTITUTIONAL: Awake and alert, appears comfortable, cooperative, well- developed, well-nourished, no pain, no acute distress EYES: Pupils equal, round, reactive to light, normal ocular movement ENT: Moist mucous membranes without oral lesions present NECK: No masses, no bruits, trachea midline RESPIRATORY: Lungs sounds clear to auscultation bilaterally. Respirations even, nonlabored. Currently on room air with oxygen saturation 100%. Strong cough. No chest wall deformities. No clubbing or cyanosis present CARDIOVASCULAR: S1, S2 present. Regular rate and rhythm, sinus rhythm on telemetry. Palpable peripheral pulses bilaterally. No edema present. No calf pain or tenderness noted. GASTROINTESTINAL: Abdomen soft, nontender, nondistended without masses or organomegaly noted. There is no rebound or guarding present. Active bowel sounds present 4 quadrants. GENITOURINARY: Deferred INTEGUMENTARY: Skin is warm and dry with evidence of good perfusion. NEUROLOGIC: Cranial nerves II through XII intact, normal coordination, no obvious motor or sensory deficits, speech is normal MUSKULOSKELETAL: Able to move all extremities, strength equal bilaterally, normal posture PSYCHIATRIC: Alert and oriented to person place and time, appropriate affect, intact judgment and insight Results - Imaging Additional studies: Heart catheterization films were reviewed with Dr. Camacho Assessment and Plan Assessment: Coronary artery disease with left main disease Hyperlipidemia, treated Cardiomyopathy with decreased systolic function, EF 35-40% on TTE from 09/2022 Moderate eccentric mitral regurgitation, mild MAC, and centrally directed mild tricuspid regurgitation on TTE from 09/2022 Asthma with multiple exacerbations, relieved with steroids Diabetes Previous tobacco dependence GERD Osteoarthritis Covid infection in September 2022 Plan: The patient was seen and examined at the bedside in the extended stay unit with Dr. Camacho. Chart/diagnostics reviewed. The usual perioperative course of open heart surgery was discussed with the patient and her son, risks and benefits were reviewed, all questions were answered. Preoperative testing was initiated. Once completed will calculate STS risk score and discuss with the patient. The case was discussed between Dr. Camacho and Dr. Negrete, recommendation made for MARY to further evaluate mitral valve function. The patient is scheduled for MARY tomorrow morning with Dr. Negrete. Pulmonology has been consulted for clearance. Continue to maximize medical therapy. The patient will be seen by Dr. Astorga after testing has been completed and further recommendations will be made regarding timing of surgery. I have personally seen and examined the patient, performed the documentation and the assessment and plan as written. Number of minutes spent on the visit: 30. MARCI Longo
[2023-02-27] MEDS: NITROGLYCERIN OINT 1 INCH/GM PACKET TOPICAL SCH ×2 (15:02→23:26)
--- NOTE | 2023-02-27 15:15 | US ---
EXAMINATION TYPE: US carotid duplex BILAT DATE OF EXAM: 02/27/2023 COMPARISON: US Carotid screening 2019 CLINICAL HISTORY: preop cardiac surgery. Preop cardiac surgery. Hx prior smoker, hyperlipidemia, diab etes. TECHNIQUE: Carotid duplex ultrasound examination. Indirect Doppler criteria was utilized. 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 Plaque seen within bilateral bulbs. Intimal thickening within bilateral carotid arteries. IMPRESSION: Mild atherosclerotic plaque within both carotid bulbs without ultrasound evidence for hemodynamically significant stenosis of the bilateral internal carotid arteries. Criteria for Assigning % of Stenosis / Diameter reduction (Estimation based on the indirect measurements of the internal carotid artery velocities (ICA PSV). 1. Normal (no stenosis)=ICA PSV < 125 cm/s: ratio < 2.0: ICA EDV<40 cm/s. 2. Less than 50% stenosis=ICA PSV < 125 cm/s: ratio < 2.0: ICA EDV<40 cm/s. 3. 50 to 69% stenosis=ICA PSV of 125 to 230 cm/s: ration 2.0 ? 4.0: ICA EDV 40-100 cm/s. 4. Greater than 70% stenosis to near occlusion= ICA PSV > 230 cm/s: ratio > 4.0: ICA EDV > 100 cm/s. 5. Near occlusion= ICA PSV velocities may be low or undetectable: variable ratio and ICA EDV. 6. Total occlusion=unable to detect flow.
--- NOTE | 2023-02-27 15:26 | US ---
EXAMINATION TYPE: US vein mapping BILAT DATE OF EXAM: 02/27/2023 3:02 PM COMPARISON: NONE CLINICAL HISTORY: preop cardiac surgery. Preop cardiac surgery SIDE PERFORMED: Bilateral TECHNIQUE: Lower extremity saphenous vein is examined and measured utilizing real time linear array sonography. Patient History: Smoker: Prior Heart Disease: Previous DVT: No Vascular Surgery: No Discoloration: Yes Hypertension: No Diabetes: Yes Paralysis: No Varicosities: Yes Edema: Yes DUPLEX FINDINGS: Greater Saphenous: Color flow seen Measurements in mm: Right Greater Saphenous: Groin: 7.1 x 6.1 mm High Thigh: 6.3 x 4.2 mm Mid Thigh: 5.8 x 4.0 mm Above Knee: 4.4 x 3.1 mm Knee: 3.0 x 2.8 mm Below Knee: 3.2 x 2.4 mm Mid Calf: 3.5 x 2.7 mm At Ankle: 3.0 x 2.5 mm Left Greater Saphenous: Groin: 5.8 x 5.1 mm High Thigh: 4.3 x 4.3 mm Mid Thigh: 3.7 x 2.8 mm Above Knee: 2.4 x 1.8 mm Knee: 2.9 x 2.5 mm Below Knee: 3.7 x 3.5 mm Mid Calf: 2.1 x 2.0 mm At Ankle: 2.2 x 2.5 mm IMPRESSION: Vein mapping as described above.
--- NOTE | 2023-02-27 15:28 | US ---
EXAMINATION TYPE: Pre-Operative Non-Invasive Evaluation of the hand for Potential Radial Artery Jaqueline salas, Measurements only DATE OF EXAM: 02/27/2023 3:02 PM CLINICAL HISTORY: measurements only. Pre op cardiac surgery SIDE PERFORMED: Left TECHNIQUE: Radial artery is measured utilizing real time linear array sonography. Dominant hand: Right Duplex Findings: Radial Artery: Color flow seen Measurements in mm, transverse view: Left Radial: Proximal: 3.1 x 2.8 mm Mid: 3.4 x 3.1 mm Distal: 3.3 x 2.6 mm IMPRESSION: No arterial occlusion of the left radial artery with measurements described above.
[2023-02-27 15:36] LABS: Basophils % (A) 1 %; Eosinophils # (A) 0.2 k/uL (0-0.7); Eosinophils % (A) 2 %; HCT 40.5 % (34.0-46.0); Lymphocytes # (A) 3.7 k/uL (1.0-4.8); Lymphocytes % (A) 40 %; MCH 28.4 pg (25.0-35.0); MCV 88.6 fL (80.0-100.0); Mean Platelet Volume 7.1; Monocytes # (A) 0.4 k/uL (0-1.0); Monocytes % (A) 5 %; Neutrophils # (A) 4.8 k/uL (1.3-7.7); Neutrophils % (A) 52 %; Platelet Count 212 k/uL (150-450); RBC 4.57 m/uL (3.80-5.40); RDW 13.6 % (11.5-15.5); WBC 9.2 k/uL (3.8-10.6)
[2023-02-27] MEDS: VESICARE 10 MG PO SCH (15:45)
[2023-02-27 15:48] LABS: ALT 21 U/L (4-34); AST 22 U/L (14-36); African American GFR (CKD) >90 (>60 ml/min/1.73 sqM); Albumin 3.4 g/dL (3.5-5.0); Alkaline Phosphatase 44 U/L (38-126); Anion Gap 3 mmol/L; Blood Urea Nitrogen 13 mg/dL (7-17); Calcium 8.9 mg/dL (8.4-10.2); Carbon Dioxide 28 mmol/L (22-30); Chloride 108 mmol/L (98-107); Glucose 119 mg/dL (74-99); Magnesium 1.9 mg/dL (1.6-2.3); Non-African American GFR(CKD) 86 (>60 ml/min/1.73 sqM); Sodium 139 mmol/L (137-145); Total Bilirubin 0.3 mg/dL (0.2-1.3); Total Protein 5.8 g/dL (6.3-8.2)
[2023-02-27 15:55] LABS: Partial Thromboplastin Time 22.2 sec (22.0-30.0); Prothrombin Time 10.6 sec (9.0-12.0)
[2023-02-27 16:21] LABS: Glucose,Whole Blood 145 mg/dL (70-110)
[2023-02-27] MEDS: INSULIN ASPART (NovoLOG) 100 UNIT/ML VIAL SQ SCH ×2 (16:21→20:35)
--- NOTE | 2023-02-27 16:53 | CA ---
Transthoracic Echo Report Name: Mary Bolaños Age: 77 Gender: F : 1945 Exam Date: 02/27/2023 14:00 Exam Location: [facility] Echo Ht (in): 60 Wt (lb): 173 Ordering Physician: Robyn Saavedra Attending/Referring Phys: [id number], Quentin Rug Hooker Hand Ana Paula Lima, ANDRÉS Procedure CPT: Indications: preop cardiac surgery Cardiac Hx: Technical Quality: Good Contrast 1: Total Dose (mL): Contrast 2: Total Dose (mL): MEASUREMENTS (Male / Female) Normal Values 2D ECHO LV Diastolic Diameter PLAX 5.8 cm 4.2 - 5.9 / 3.9 - 5.3 cm LV Systolic Diameter PLAX 4.8 cm IVS Diastolic Thickness 1.0 cm 0.6 - 1.0 / 0.6 - 0.9 cm LVPW Diastolic Thickness 1.1 cm 0.6 - 1.0 / 0.6 - 0.9 cm LV Relative Wall Thickness 0.4 RV Internal Dim ED PLAX 2.7 cm LA Systolic Diameter LX 3.1 cm 3.0 - 4.0 / 2.7 - 3.8 cm LV Diastolic Volume MOD BP 79.1 cm??? 67 - 155 / 56 - 104 cm??? LV Systolic Volume MOD BP 51.0 cm??? 22 - 58 / 19 - 49 cm??? LV Ejection Fraction MOD BP 35.5 % >= 55 % LV Diastolic Volume MOD 4C 95.7 cm??? LV Systolic Volume MOD 4C 64.2 cm??? LV Ejection Fraction MOD 4C 32.8 % LV Diastolic Length 4C 7.0 cm LV Systolic Length 4C 6.1 cm LV Diastolic Volume MOD 2C 67.1 cm??? LV Systolic Volume MOD 2C 43.6 cm??? LV Ejection Fraction MOD 2C 35.0 % LV Diastolic Length 2C 6.2 cm LV Systolic Length 2C 5.6 cm LA Volume 56.3 cm??? 18 - 58 / 22 - 52 cm??? M-MODE Aortic Root Diameter MM 2.9 cm MV E Point Septal Separation 2.0 cm AV Cusp Separation MM 2.0 cm DOPPLER AV Peak Velocity 134.3 cm/s AV Peak Gradient 7.2 mmHg MV Area PHT 2.7 cm??? Mitral E Point Velocity 59.5 cm/s Mitral A Point Velocity 101.2 cm/s Mitral E to A Ratio 0.6 MV Deceleration Time 285.0 ms MV E' Velocity 5.4 cm/s Mitral E to MV E' Ratio 11.1 TR Peak Velocity 241.2 cm/s TR Peak Gradient 23.3 mmHg Right Ventricular Systolic Press 28.0 mmHg FINDINGS Left Ventricle Left ventricular ejection fraction is estimated at -30 %. Mildly increased septal wall thickness. Mildly increased posterior wall thickness. Moderately increased left ventricular diastolic diameter. Mildly increased left ventricular systolic volume. Moderately decreased left ventricular ejection fraction. Right Ventricle Normal right ventricular size. Right ventricular systolic pressure within normal limits. Right Atrium Normal right atrial size. Left Atrium Mildly increased left atrial volume. Mildly increased left atrial area. Mitral Valve Mitral valve thickened. Mild mitral annular calcification. Mild to moderate mitral regurgitation. Aortic Valve Trileaflet aortic valve. No aortic valve stenosis or regurgitation. Tricuspid Valve Structurally normal tricuspid valve. Mild tricuspid regurgitation. Pulmonic Valve Structurally normal pulmonic valve. No pulmonic regurgitation. Pericardium Normal pericardium. No pericardial effusion. Aorta Normal size aortic root and proximal ascending aorta. CONCLUSIONS Severe LV systolic dysfunction with an ejection fraction of 30% Mild to moderate mitral regurgitation Previewed by: Dr. Arias Negrete MD (Electronically Signed) Final Date: 27 February 2023 16:52
[2023-02-27 20:09] LABS: Glucose,Whole Blood 117 mg/dL (70-110)
[2023-02-27] MEDS: ALBUTEROL INHALER INHALATION PRN (20:40)
[2023-02-27] MEDS: DIGOXIN 250 MCG TAB PO SCH (20:47)
[2023-02-27] MEDS: atenoloL 25 MG TAB PO SCH (20:47)
[2023-02-27] MEDS: ATORVASTATIN 80 MG TAB PO SCH (20:47)
[2023-02-27] MEDS: ENALAPRIL 5 MG PO SCH (20:47)
[2023-02-27] MEDS ORDERED: TROSPIUM CHLORIDE 20 MG TABLET PO SCH (21:00)
[2023-02-27] MEDS ORDERED: lisinopriL 10 MG TAB PO SCH (21:00)
[2023-02-27] MEDS: LATANOPROST 0.005% OPHTH DROPS 2.5 ML BTL BOTH EYES SCH (21:31)
--- NOTE | 2023-02-27 22:10 | CC ---
CARDIAC CATHETERIZATION REPORT INDICATIONS: Cardiomyopathy with episodes of congestive heart failure. PROCEDURE NOTE: After obtaining informed consent, left heart catheterization and coronary angiogram were performed via right radial artery. The right coronary artery was engaged using 3.5 right Arlin catheter. Hemodynamics were obtained by a pigtail catheter. Left coronary artery was engaged using a size 3 left Arlin catheter. The patient has very tortuous subclavian artery and we had to go through multiple catheters to engage the left coronary system and Dr. Mckenna, the available guest services attendant completed the procedure. We had to use a stiff Glidewire to manipulate the left coronary catheter into the ascending aorta and Glidewire was also used. The patient received moderate conscious sedation. Total sedation time was 16 minutes. Right radial artery access was obtained using Seldinger technique, and a 6-German sheath was placed. The patient received intravenous heparin and verapamil as per protocol. FINDINGS: 1. Hemodynamics. Left ventricular end-diastolic pressure is 20 mm. There is no significant gradient across the aortic valve. 2. Left ventriculogram is not performed. 3. Angiographic Data. a.Right coronary artery is a large dominant vessel and is free of significant stenosis. Left main coronary artery is a long vessel that shows an 80% to 90% distal left main stenosis as it trifurcates into circumflex coronary artery, ramus intermedius, and LAD. There is an independent 70% to 80% stenosis involving proximal LAD. CONCLUSION: Severe distal left main stenosis with proximal LAD disease. PLAN: Reviewed angiographic data with the patient and told her that she will need and would benefit from bypass surgery. She needs revascularization of the LAD, diagonal, ramus intermedius, and circumflex coronary artery. I consulted cardiothoracic surgeon and if for some reason they do not think she is an optimal candidate for surgery, I will ask Dr. Pepe to perform percutaneous revascularization. MMODL / IJN: [id number] /
[2023-02-28 04:02] LABS: Chol/HDL Ratio 2.63 Ratio; LDL Cholesterol,Calculated 51.5 mg/dL (0.0-131.0)
[2023-02-28 04:34] LABS: Hepatitis A Antibody IgM Nonreactive (Nonreactive); Hepatitis B Core IgM Nonreactive (Nonreactive); Hepatitis B Surface Antigen Nonreactive (Nonreactive); Hepatitis C IgG Antibody Nonreactive (Nonreactive)
[2023-02-28 06:03] LABS: Glucose,Whole Blood 104 mg/dL (70-110)
[2023-02-28] MEDS: INSULIN ASPART (NovoLOG) 100 UNIT/ML VIAL SQ SCH ×4 (06:05→20:39)
[2023-02-28] MEDS: VESICARE 10 MG PO SCH (07:52)
--- NOTE | 2023-02-28 08:08 | P.PN ---
Subjective Progress Note Date: 02/28/23 Principal diagnosis: Coronary artery disease with left main disease. History of hyperlipidemia, cardiomyopathy with decreased systolic function, moderate eccentric mitral regurgitation, asthma with multiple exacerbations, diabetes mellitus, previous tobacco dependence, GERD, osteoarthritis, covid infection in September 2022 The patient was seen and examined laying in bed on the stepdown unit in no acute distress. Denies current chest pain or shortness of breath. Remains on room air with oxygen saturation in the high 90s. Patient does state she was up for a couple hours last night with her mind racing about surgery, she is quite nervous, reassured patient. Anticipates MARY today to evaluate mitral valve. Preoperative teaching continues. No new concerns. Objective - Vital Signs Vital signs: Vital Signs Temp 98.3 F 02/28/23 03:19 Pulse 76 02/28/23 03:19 Resp 16 02/28/23 03:19 BP 127/70 02/28/23 03:19 Pulse Ox 99 02/28/23 03:19 FiO2 Intake & Output 02/27/23 02/28/23 02/28/23 18:59 06:59 18:59 Intake Total 880 Balance 880 Weight 78.7 kg 78.8 kg Intake: IV 700 Oral 180 Other: Voiding Method Toilet # Voids 1 1 - Exam CONSTITUTIONAL: Appears comfortable, cooperative, no acute distress RESPIRATORY: Lungs sounds diminished bilaterally. Respirations even, nonlabored. Currently on room air with oxygen saturation 99%. Able to achieve 1000 mL on incentive spirometry. Strong cough. CARDIOVASCULAR: S1, S2 present. Regular rate and rhythm, sinus rhythm on telemetry. Palpable peripheral pulses bilaterally. No edema present. No calf pain or tenderness noted. GASTROINTESTINAL: Abdomen soft, nontender, nondistended. Active bowel sounds present 4 quadrants. Currently NPO for MARY GENITOURINARY: Continues to void INTEGUMENTARY: Skin is warm and dry with evidence of good perfusion NEUROLOGIC: Cranial nerves II through XII intact MUSKULOSKELETAL: Able to move all extremities, strength equal bilaterally, gait normal PSYCHIATRIC: Alert and oriented to person place and time, appropriate affect, intact judgment and insight - Allied health notes Allied health notes reviewed: nursing - Labs CBC & Chem 7: 02/27/23 15:13 02/27/23 15:13 Labs: Abnormal Lab Results - Last 24 Hours (Table) 02/27/23 02/27/23 02/27/23 Range/Units 15:13 15:13 16:20 Chloride 108 H (98-107) mmol/L Glucose 119 H (74-99) mg/dL POC Glucose (mg/dL) 145 H (70-110) mg/dL Hemoglobin A1c 6.9 H (0.0-6.0) % Total Protein 5.8 L (6.3-8.2) g/dL Albumin 3.4 L (3.5-5.0) g/dL Triglycerides 201.00 H (0.00-149.00) mg/dL VLDL Cholesterol, Calc 40.20 H (5.00-40.00) mg/dL 02/27/23 Range/Units 20:08 Chloride (98-107) mmol/L Glucose (74-99) mg/dL POC Glucose (mg/dL) 117 H (70-110) mg/dL Hemoglobin A1c (0.0-6.0) % Total Protein (6.3-8.2) g/dL Albumin (3.5-5.0) g/dL Triglycerides (0.00-149.00) mg/dL VLDL Cholesterol, Calc (5.00-40.00) mg/dL Microbiology - Last 24 Hours (Table) 02/27/23 14:36 Nasal Screen MRSA/MSSA - Preliminary Nasal Swab - Imaging and Cardiology All preoperative testing reviewed Assessment and Plan Assessment: Coronary artery disease with left main disease Hyperlipidemia, treated, cholesterol 148, LDL 51, triglycerides 201 Cardiomyopathy with decreased systolic function, EF 30% on TTE 02/27/23 Mild to moderate mitral regurgitation on TTE 02/27/23 Asthma with multiple exacerbations, relieved with steroids Severe restrictive lung disease, FEV1 42% of predicted Diabetes mellitus, hemoglobin A1c 6.9% Previous tobacco dependence GERD Osteoarthritis Covid infection in September 2022 Plan: Continue to maximize medical therapy with aspirin, statin, beta analisa Anticipate MARY this morning, will review results Encourage incentive spirometry use Pulmonology consulted for clearance Increase activity as tolerated STS risk score will be calculated after MARY and discussed with the patient Continue preoperative teaching Further recommendations regarding surgery forthcoming
[2023-02-28 08:41] LABS: African American GFR (CKD) >90 (>60 ml/min/1.73 sqM); Anion Gap 3 mmol/L; Blood Urea Nitrogen 12 mg/dL (7-17); Calcium 8.8 mg/dL (8.4-10.2); Carbon Dioxide 30 mmol/L (22-30); Chloride 106 mmol/L (98-107); Glucose 104 mg/dL (74-99); Non-African American GFR(CKD) 88 (>60 ml/min/1.73 sqM); Potassium 4.2 mmol/L (3.5-5.1); Sodium 139 mmol/L (137-145)
[2023-02-28] MEDS: ALBUTEROL INHALER INHALATION PRN ×4 (08:46→21:25)
[2023-02-28] MEDS ORDERED: NON FORMULARY DRUG (Rosuvastatin Calcium [Crestor] 5 MG Tablet) PO SCH (09:00)
[2023-02-28] MEDS: ASCORBIC ACID 500 MG TAB PO SCH (10:20)
[2023-02-28] MEDS: PANTOPRAZOLE 40 MG TABLET PO SCH (10:20)
[2023-02-28] MEDS: MULTIVITAMINS, THERA 1 EACH TAB PO SCH (10:21)
[2023-02-28] MEDS: NITROGLYCERIN OINT 1 INCH/GM PACKET TOPICAL SCH ×3 (10:21→23:17)
[2023-02-28] MEDS: atenoloL 25 MG TAB PO SCH ×2 (10:21→20:43)
[2023-02-28] MEDS: ASPIRIN 81 MG PO SCH (10:21)
[2023-02-28 11:38] LABS: Glucose,Whole Blood 102 mg/dL (70-110)
--- NOTE | 2023-02-28 12:55 | XR ---
EXAMINATION TYPE: XR chest 1V portable DATE OF EXAM: 02/28/2023 COMPARISON: 01/11/2023 HISTORY: Preop TECHNIQUE: Single frontal view of the chest is obtained. FINDINGS: There is no focal air space opacity, pleural effusion, or pneumothorax seen. The cardiac silhouette size is within normal limits. The osseous structures are intact. IMPRESSION: No acute process.
[2023-02-28] MEDS ORDERED: SODIUM CHLORIDE 0.9% 250 ML IV ONE (13:16)
[2023-02-28] MEDS ORDERED: fentaNYL (PF) 50 MCG/ML 2 ML AMP ONE (13:20)
--- NOTE | 2023-02-28 13:24 | P.CNPUL ---
History of Present Illness Consult date: 02/28/23 Requesting physician: Jimenez Camacho Reason for consult: other (Preoperative pulmonary clearance) Chief complaint: Abnormal cardiac catheterization History of present illness: This is a 77-year-old female with history of severe persistent bronchial asthma, former smoker quit in 1973, however looking back at her PFT in the office it was basically unremarkable and nonobstructive in nature. Nonetheless the patient has been experiencing over the last 3 years intermittent episodes of cough wheezing and shortness of breath, and has been requiring multiple courses of steroids, and at one point she was maintained on prednisone for her asthma by Dr. Swift. Patient also has multiple ALLERGIES and she cannot tolerate a lot of the inhalers as listed on her ALLERGY list. Patient was last admitted to the hospital and we saw on consultation on 01/12/2023, patient ended up on prednisone 10 mg daily and again very she inhalers that she can use at home. He goes of presumptive ALLERGY to inhalers. Patient was recently evaluated by Dr. Montes for her abnormal LV dysfunction ejection fraction of 35-40%, and she underwent a cardiac catheterization which showed demonstrated left main coronary artery disease due to this finding, the patient was referred to cardiothoracic surgery for surgical intervention, patient is being worked up for surgery, and part of the workup included a pulmonary consultation for preoperative clearance. Presently the patient denies any shortness of breath at rest, no cough no wheezing she does have chronic dyspnea on exertion. Again I reviewed her last PFT in the office and it was relatively normal based on this alone, I would clear the patient for surgery as scheduled, the benefits of surgery outweigh the risks be Review of Systems CONSTITUTIONAL: Denies any recent significant weight loss or weight gain. EYES: Denies change in vision. EARS, NOSE, MOUTH, THROAT: Denies headaches, denies sore throat. CARDIOVASCULAR: Denies chest pain, palpitations or syncopal episodes. RESPIRATORY: Dyspnea on exertion no cough no wheezing no fever no chills no hemoptysis GASTROINTESTINAL: Denies change in appetite, denies abdominal pain GENITOURINARY: Denies hematuria, denies infections. MUSKULOSKELETAL: Denies pain, denies swelling. INTEGUMENTARY: Denies rash, denies eczema. NEUROLOGICAL: Denies recent memory loss, no recent seizure activity. PSYCHIATRIC: Denies anxiety, denies depression. HEMATOLOGIC/LYMPHATIC: Denies anemia, denies enlarged lymph nodes. Past Medical History Past Medical History: Asthma, Coronary Artery Disease (CAD), Diabetes Mellitus, GERD/Reflux, Hyperlipidemia, Osteoarthritis (OA) Additional Past Medical History / Comment(s): cardiomyopathy, elevated heart rate, overactive bladder, glaucoma, hx elevated sed rate,lelo knee pain-arthritis and elmore cyst, covid in 09/2022 History of Any Multi-Drug Resistant Organisms: None Reported Past Surgical History: Appendectomy, Section, Hysterectomy, Orthopedic Surgery Additional Past Surgical History / Comment(s): 3 left breast biopsies, 3 needle loc on right breast- pt states all benign. lelo rotator cuff repair, lelo. hammer toe and bunionectomy, trigger finger release lelo ring fingers, meniscus repair lelo knees, carpal tunnel lelo, rt thumb fusion, lt ankle surgery, D&C, bilateral cataract surgery and laser surgery, COLONOSCOPY , EGD WITH BIOPSY Past Anesthesia/Blood Transfusion Reactions: No Reported Reaction Smoking Status: Former smoker - Past Family History Mother History Unknown: Yes Family Medical History: Congestive Heart Failure (CHF), CVA/TIA, Hypertension Son(s) History Unknown: Yes Family Medical History: Deep Vein Thrombosis (DVT) Additional Family Medical History / Comment(s): DVT IN LEG Father Family Medical History: Congestive Heart Failure (CHF), Hypertension Medications and Allergies Home Medications Medication Instructions Recorded Confirmed Type Rosuvastatin Calcium [Crestor] 5 mg PO DAILY 07/16/14 02/27/23 History Solifenacin Succinate [Vesicare] 10 mg PO HS 07/16/14 02/27/23 History atenoloL [Tenormin] 25 mg PO BID 07/16/14 02/27/23 History Latanoprost Ophth [Xalatan 0.005%] 1 drop BOTH EYES HS 08/17/17 02/27/23 History Furosemide [Lasix] 20 mg PO MOWEFR 12/16/20 02/27/23 History Digoxin 0.25 mg PO HS 04/15/21 02/27/23 History Carboxymethylcellulose Sodium 1 drop BOTH EYES TID PRN 11/16/22 02/27/23 History [Refresh Tears] Esomeprazole Magnesium [NexIUM] 20 mg PO DAILY 11/16/22 02/27/23 History Multivit with Calcium,Iron,Min 1 tab PO DAILY 11/16/22 02/27/23 History [Women's Multivitamin] Nystatin 100,000 Unit/ml Susp 5 ml PO TID BETWEEN MEALS 11/16/22 02/25/23 History [Mycostatin Oral Susp] Ascorbic Acid [Vitamin C] 500 mg PO DAILY 12/03/22 02/27/23 History metFORMIN HCL [Glucophage] 500 mg PO 1700 01/11/23 02/27/23 History Albuterol Inhaler [Ventolin Hfa 2 puff INHALATION RT-QID PRN each 01/16/23 02/27/23 Rx Inhaler] Codeine Phosphate/Guaifenesin 10 ml PO Q4H PRN #100 ml 01/16/23 02/25/23 Rx [Codeine Phosphate/Guaifenesin 10-100 mg/5 ml] predniSONE 10 mg PO DIRECTED #30 tab 01/16/23 02/27/23 Rx Acetaminophen [Tylenol Extra 500 mg PO DAILY 02/25/23 02/25/23 History Strength] Enalapril [Vasotec] 5 mg PO HS 02/25/23 02/27/23 History Allergies Allergy/AdvReac Type Severity Reaction Status Date / Time budesonide Allergy Wheezing Verified 02/25/23 12:25 fluticasone Allergy Rapid Verified 02/25/23 12:25 Heart Rate, dizziness formoterol Allergy Wheezing, Verified 02/25/23 12:25 [From [employer]] Dizziness, Rapid Heart Rate, High BP glycopyrrolate Allergy Wheezing, Verified 02/25/23 12:25 [From [employer]] Dizziness, Rapid Heart Rate, High BP levalbuterol [From Xopenex] Allergy Wheezing, Verified 02/25/23 12:25 Dizziness azithromycin [From Zithromax] AdvReac intercts Verified 02/25/23 12:25 w/Digoxin benzonatate AdvReac Gerd Verified 02/25/23 12:25 dexamethasone AdvReac Gerd Verified 02/25/23 12:25 doxycycline AdvReac Gerd Verified 02/25/23 12:25 ipratropium AdvReac Rapid Verified 02/25/23 12:25 Heart Rate pravastatin sodium AdvReac Swelling Verified 02/25/23 12:25 [From Pravachol] and pain in legs prednisone AdvReac causes Verified 02/25/23 12:25 thrush ranitidine AdvReac Nausea & Verified 02/25/23 12:25 Vomiting & Diarrhea Sulfa (Sulfonamide AdvReac Rash/Hives Verified 02/25/23 12:25 Antibiotics) Physical Exam Vitals: Vital Signs Temp Pulse Pulse Resp BP BP Pulse Ox 02/28/23 11:01 98.2 F 71 16 159/73 98 02/28/23 08:34 98.5 F 82 17 136/64 99 02/28/23 03:19 98.3 F 76 16 127/70 99 02/27/23 23:20 98.2 F 77 16 111/63 98 02/27/23 19:45 98.0 F 75 16 124/73 96 02/27/23 15:02 98.0 F 75 16 136/68 97 02/27/23 14:27 86 02/27/23 14:02 89 124/70 02/27/23 13:48 98.2 F 86 16 118/62 98 Intake and Output 02/27/23 02/28/23 02/28/23 22:59 06:59 14:59 Intake Total 180 Balance 180 Intake: Oral 180 Other: # Voids 1 1 2 Weight 78.8 kg Physical Exam: Revealed a 77-year-old female in no distress Head: Atraumatic, normocephalic. HEENT:[Neck is supple.] [No neck masses.] [No thyromegaly.] [No JVD.] Chest: [Clear throughout, no crackles, no rhonchi, no wheezes.] Cardiac Exam: [Normal S1 and S2, no S3 gallop, 2/6 systolic murmur at the apex.] Abdomen: [Soft, nontender, no megaly, no rebound, no guarding, normal bowel sounds.] Extremities: [No clubbing, no edema, no cyanosis.] Neurological Exam: [No focal neurologic deficit.] Alert oriented 3. Psychiatric: Normal mood affect and normal mental status examination. Skin: No rashes. Results - Laboratory Findings CBC and BMP: 02/27/23 15:13 02/28/23 07:41 PT/INR, D-dimer PT 10.6 sec (9.0-12.0) 02/27/23 15:13 INR 1.0 (<1.2) 04/07/23 15:13 Abnormal lab findings: Abnormal Labs 02/27/23 02/27/23 02/27/23 15:13 15:13 16:20 Chloride 108 H Glucose 119 H POC Glucose (mg/dL) 145 H Hemoglobin A1c 6.9 H Total Protein 5.8 L Albumin 3.4 L Triglycerides 201.00 H VLDL Cholesterol, Calc 40.20 H 02/27/23 02/28/23 20:08 07:41 Chloride Glucose 104 H POC Glucose (mg/dL) 117 H Hemoglobin A1c Total Protein Albumin Triglycerides VLDL Cholesterol, Calc - Diagnostic Findings Chest x-ray: image reviewed (Last chest x-ray from 01/11/2023 was basically unremarkable, chest x-ray on this admission was also unremarkable.) Assessment and Plan Assessment: Impression: Coronary artery disease with left main disease Ischemic cardiomyopathy and LV dysfunction with ejection fraction of 35-40% based on transthoracic echo from 09/2022 Moderate mitral regurgitation Severe persistent asthma based on clinical symptoms and multiple admissions for asthma in the past. However her PFT in the office did not show a significant obstructive picture. Previous tobacco dependence Type 2 diabetes Degenerative disc disease GERD without esophagitis Recommendation: Based on the clinical history today Based on the clinical findings and physical examination Based on the PFT done in the office recently I will clear the patient for CABG, benefits outweigh the risks, she is definitely a moderate operative risk, but no absolute contraindication to surgery. We'll continue to follow Patient to resume asthma medications as taken at home. Presently not on any prednisone Time with Patient: Greater than 30
[2023-02-28] MEDS ORDERED: BENZOCAINE SPRAY 1 CAN TOPICAL ONE (13:32)
[2023-02-28] MEDS ORDERED: fentaNYL (PF) 50 MCG/ML 2 ML AMP IV ONE (13:32)
[2023-02-28] MEDS ORDERED: MIDAZOLAM 2 MG/2 ML VIAL IV ONE (13:34)
--- NOTE | 2023-02-28 14:05 | ECHOT ---
TRANSESOPHAGEAL ECHOCARDIOGRAM INDICATION: Mitral regurgitation. PROCEDURE NOTE: After obtaining informed consent, transesophageal echocardiogram was performed in left lateral position using an Omniplane probe. Local and IV sedation were obtained with Xylocaine spray, 2 mg of Versed and 50 mcg of fentanyl. The patient tolerated the procedure well without any obvious immediate complications. FINDINGS: 1. Mitral valve appears anatomically normal. There is dilatation of the mitral annulus with enlarged left atrium. There is wfjgrxpf-hq-jmoqrj central mitral regurgitation noted. 2. There is mild tricuspid regurgitation. 3. Aortic valve is a 3-leaflet valve. There is no evidence of aortic stenosis or regurgitation. 4. Aortic root measures within normal limits. 5. Left ventricle appears dilated with diffuse global hypokinesis with moderate-to- severe LV dysfunction with an ejection fraction of 35%. 6. Interatrial septum, there is no evidence of yfzq-le-jzzma shunt by color-flow Doppler or sfejq-hl-knpx shunt by agitated saline contrast study. 7. Right atrium and right ventricle seen within normal limits. CONCLUSIONS: 1. Ebzqsfpx-re-gjiwby central mitral regurgitation. 2. Left ventricular systolic dysfunction. PLAN: The patient needs bypass surgery for severe distal left main stenosis. She will also undergo mitral valve ring at the same time. MMODL / IJN: [id number] /
[2023-02-28 16:12] LABS: Glucose,Whole Blood 155 mg/dL (70-110)
[2023-02-28 20:10] LABS: Glucose,Whole Blood 109 mg/dL (70-110)
[2023-02-28] MEDS: ATORVASTATIN 80 MG TAB PO SCH (20:43)
[2023-02-28] MEDS: DIGOXIN 250 MCG TAB PO SCH (20:43)
[2023-02-28] MEDS: LATANOPROST 0.005% OPHTH DROPS 2.5 ML BTL BOTH EYES SCH (20:44)
[2023-02-28] MEDS: ENALAPRIL 5 MG PO SCH (20:44)
[2023-02-28] MEDS: MUPIROCIN 2% OINT 22 GM TUBE TOPICAL SCH (20:52)
[2023-03-01 06:07] LABS: Glucose,Whole Blood 99 mg/dL (70-110)
[2023-03-01] MEDS: PANTOPRAZOLE 40 MG TABLET PO SCH (06:12)
[2023-03-01] MEDS: INSULIN ASPART (NovoLOG) 100 UNIT/ML VIAL SQ SCH ×4 (06:34→21:27)
[2023-03-01] MEDS: MULTIVITAMINS, THERA 1 EACH TAB PO SCH (08:32)
[2023-03-01] MEDS: atenoloL 25 MG TAB PO SCH ×2 (08:32→21:25)
[2023-03-01] MEDS: ASCORBIC ACID 500 MG TAB PO SCH (08:32)
[2023-03-01] MEDS: NITROGLYCERIN OINT 1 INCH/GM PACKET TOPICAL SCH ×2 (08:32→16:40)
[2023-03-01] MEDS: ASPIRIN 81 MG PO SCH (08:32)
[2023-03-01] MEDS: MUPIROCIN 2% OINT 22 GM TUBE TOPICAL SCH ×2 (08:32→21:29)
[2023-03-01 08:36] LABS: Basophils % (A) 1 %; Eosinophils # (A) 0.2 k/uL (0-0.7); Eosinophils % (A) 3 %; HCT 41.9 % (34.0-46.0); HGB 13.4 gm/dL (11.4-16.0); Lymphocytes # (A) 2.7 k/uL (1.0-4.8); Lymphocytes % (A) 33 %; MCH 28.4 pg (25.0-35.0); MCV 88.8 fL (80.0-100.0); Mean Platelet Volume 7.6; Monocytes # (A) 0.5 k/uL (0-1.0); Monocytes % (A) 6 %; Neutrophils # (A) 4.8 k/uL (1.3-7.7); Neutrophils % (A) 57 %; Platelet Count 208 k/uL (150-450); RBC 4.72 m/uL (3.80-5.40); RDW 13.6 % (11.5-15.5); WBC 8.4 k/uL (3.8-10.6)
[2023-03-01] MEDS: ALBUTEROL INHALER INHALATION PRN ×4 (08:50→21:06)
[2023-03-01 08:51] LABS: ALT 21 U/L (4-34); AST 24 U/L (14-36); African American GFR (CKD) >90 (>60 ml/min/1.73 sqM); Albumin 3.5 g/dL (3.5-5.0); Alkaline Phosphatase 44 U/L (38-126); Anion Gap 8 mmol/L; Blood Urea Nitrogen 9 mg/dL (7-17); Calcium 9.3 mg/dL (8.4-10.2); Carbon Dioxide 25 mmol/L (22-30); Chloride 105 mmol/L (98-107); Glucose 164 mg/dL (74-99); Magnesium 1.8 mg/dL (1.6-2.3); Non-African American GFR(CKD) 87 (>60 ml/min/1.73 sqM); Potassium 4.2 mmol/L (3.5-5.1); Sodium 138 mmol/L (137-145); Total Bilirubin 0.5 mg/dL (0.2-1.3); Total Protein 6.1 g/dL (6.3-8.2)
--- NOTE | 2023-03-01 08:55 | P.PN ---
Subjective Progress Note Date: 03/01/23 Principal diagnosis: Coronary artery disease with left main disease. History of hyperlipidemia, cardiomyopathy with decreased systolic function, moderate to severe central mitral regurgitation, asthma with multiple exacerbations, diabetes mellitus, previous tobacco dependence, GERD, osteoarthritis, covid infection in September 2022 The patient was seen and examined laying in bed on the stepdown unit in no acute distress. Denies current chest pain or shortness of breath. Remains on room air with oxygen saturation in the high 90s. Patient is quite nervous, reassured patient. MARY completed yesterday reveals moderate to severe central mitral regurgitation with enlarged left atrium, mild tricuspid regurgitation, dilated left ventricle with global hypokinesis, EF 35%. Preoperative teaching continues. No new concerns. Objective - Vital Signs Vital signs: Vital Signs Temp 98.2 F 03/01/23 08:00 Pulse 85 03/01/23 08:00 Resp 16 03/01/23 08:00 BP 149/72 03/01/23 08:00 Pulse Ox 98 03/01/23 08:00 FiO2 Intake & Output 02/28/23 03/01/23 03/01/23 18:59 06:59 18:59 Intake Total 100 240 Balance 100 240 Weight 78.2 kg Intake: IV 100 Oral 240 Other: # Voids 2 1 - Exam CONSTITUTIONAL: Appears comfortable, cooperative, no acute distress RESPIRATORY: Lungs sounds diminished bilaterally. Respirations even, nonlabored. Currently on room air with oxygen saturation 98%. Able to achieve 2980-1988 mL on incentive spirometry. Strong cough. CARDIOVASCULAR: S1, S2 present. Regular rate and rhythm, sinus rhythm on telemetry. Palpable peripheral pulses bilaterally. No edema present. No calf pain or tenderness noted. GASTROINTESTINAL: Abdomen soft, nontender, nondistended. Active bowel sounds present 4 quadrants. Tolerating diet GENITOURINARY: Continues to void INTEGUMENTARY: Skin is warm and dry with evidence of good perfusion NEUROLOGIC: Cranial nerves II through XII intact MUSKULOSKELETAL: Able to move all extremities, strength equal bilaterally, gait normal PSYCHIATRIC: Alert and oriented to person place and time, appropriate affect, intact judgment and insight - Allied health notes Allied health notes reviewed: nursing - Labs CBC & Chem 7: 03/01/23 08:15 03/01/23 08:15 Labs: Abnormal Lab Results - Last 24 Hours (Table) 02/28/23 Range/Units 16:10 POC Glucose (mg/dL) 155 H (70-110) mg/dL Microbiology - Last 24 Hours (Table) 02/27/23 14:36 Nasal Screen MRSA/MSSA - Final Nasal Swab Staphylococcus aureus,Not MRSA - Imaging and Cardiology Chest x-ray: report reviewed, image reviewed Assessment and Plan Assessment: Coronary artery disease with left main disease Hyperlipidemia, treated, cholesterol 148, LDL 51, triglycerides 201 Cardiomyopathy/chronic systolic heart failure with decreased systolic function, EF 35% on MARY 02/28/23 Moderate to severe central mitral regurgitation on MARY 02/28/23 Asthma with multiple exacerbations, relieved with steroids Severe restrictive lung disease, FEV1 42% of predicted Diabetes mellitus, hemoglobin A1c 6.9% Previous tobacco dependence GERD Osteoarthritis Covid infection in September 2022 Plan: Continue to maximize medical therapy with aspirin, statin, beta analisa Encourage incentive spirometry use Pulmonology clearance obtained, patient considered to be a moderate operative risk from their standpoint Increase activity as tolerated STS risk score was calculated, discussed with patient, she is considered higher risk with STS risk score 7.3% risk for mortality 5 m walk test completed: #1 5.77 sec, #2 6.3 sec, #3 7.25 sec Patient is edentulous, does not need dental clearance Dr. Astorga saw patient, our plan is for myocardial revascularization, mitral valve repair, endoscopic vein harvest, left atrial appendage tomorrow by Dr. Astorga Continue preoperative teaching Further recommendations to follow
[2023-03-01] MEDS ORDERED: MD COMMUNICATION TO PHARMACY 1 EACH MISC PO ONE ×2 (09:46→09:47)
[2023-03-01] MEDS ORDERED: predniSONE 10 MG TAB PO SCH (10:00)
--- NOTE | 2023-03-01 10:33 | PN ---
PROGRESS NOTE HISTORY OF PRESENT ILLNESS: This is a 77-year-old lady with history of inappropriate sinus tachycardia, bronchospastic airway disease, cardiomyopathy with zkqbkpfn-uk-[id number] LV systolic dysfunction, who underwent elective cardiac catheterization to assess the cardiomyopathy and she was found to have severe distal left main stenosis and proximal LAD disease. She has been evaluated by Cardiothoracic Surgery. On their request, I performed a transesophageal echo that shows fmahdldj-bt-vaykoi central mitral regurgitation. Pulmonary had seen and has cleared for surgery. This morning, she is doing well and is free of chest pain or difficulty in breathing. There is no leg edema, PND, or orthopnea. CURRENT MEDICATIONS: Include: 1. Aspirin. 2. Tenormin 75 b.i.d. 3. Lipitor 80. 4. Enalapril 5 mg daily. 5. Metoprolol, which I am going to stop as the patient is already on Tenormin. 6. Sliding scale for insulin. OBJECTIVE: GENERAL: Comfortable at rest. VITAL SIGNS: Afebrile. Heart rate is 85 beats and blood pressure is 149/72, respiratory rate 16, O2 saturation is 98% on room air. NECK: There is no jugular venous distention. CHEST: Reveals good air entry bilaterally. HEART: Reveals first and second heart sounds and there is systolic murmur at the apex. ABDOMEN: Soft. EXTREMITIES: Did not reveal any edema. Peripheral pulses are palpable. LABORATORY DATA: Show a hemoglobin of 15.4, platelet count is 208, potassium is 4.2, creatinine 0.65. AST and ALT are within normal limits. ASSESSMENT AND PLAN: 1. Cardiomyopathy with wvevqvae-zs-rtzueo LV dysfunction. 2. Mhtldrix-zb-gxfags mitral regurgitation. 3. Severe left main stenosis. PLAN: I will stop the enalapril and start her on losartan 25 mg daily to better control her blood pressure and continue the Tenormin that she is on along with the statins. I spoke to Dr. Astorga, the cardiothoracic surgeon. Hopefully, the patient will have bypass surgery tomorrow. MMODL / IJN: [id number] /
[2023-03-01 11:34] LABS: Glucose,Whole Blood 114 mg/dL (70-110)
[2023-03-01] MEDS: ENALAPRIL 5 MG TABLET PO SCH ×2 (11:56→18:43)
--- NOTE | 2023-03-01 12:05 | P.PN ---
Subjective Progress Note Date: 03/01/23 This is a 77-year-old female with history of severe persistent bronchial asthma, former smoker quit in 1973, however looking back at her PFT in the office it was basically unremarkable and nonobstructive in nature. Nonetheless the patient has been experiencing over the last 3 years intermittent episodes of cough wheezing and shortness of breath, and has been requiring multiple courses of steroids, and at one point she was maintained on prednisone for her asthma by Dr. Swift. Patient also has multiple ALLERGIES and she cannot tolerate a lot of the inhalers as listed on her ALLERGY list. Patient was last admitted to the hospital and we saw on consultation on 01/12/2023, patient ended up on prednisone 10 mg daily and again very she inhalers that she can use at home. He goes of presumptive ALLERGY to inhalers. Patient was recently evaluated by Dr. Montes for her abnormal LV dysfunction ejection fraction of 35-40%, and she underwent a cardiac catheterization which showed demonstrated left main coronary artery disease due to this finding, the patient was referred to cardiothoracic surgery for surgical intervention, patient is being worked up for surgery, and part of the workup included a pulmonary consultation for preoperative clearance. Presently the patient denies any shortness of breath at rest, no cough no wheezing she does have chronic dyspnea on exertion. Again I reviewed her last PFT in the office and it was relatively normal based on this alone, I would clear the patient for surgery as scheduled, the benefits of surgery outweigh the risks The patient is seen today 03/01/2023 in follow-up on the cardiac floor. She is currently sitting up in bed. Awake and alert in no acute distress. No worsening shortness of breath, cough or congestion. Her asthma is currently i nactive and stable. She is maintaining good O2 saturations in the upper 90s on room air. Afebrile. Hemodynamically stable. She is continued on her bronchodilators. Resumed on her prednisone. MARY from yesterday revealed moderate to severe mitral regurgitation and global hypokinesis with impaired left ventricular systolic function and ejection fraction 35%. Plan per CT services is for coronary revascularization and mitral valve repair possibly tomorrow. Objective - Vital Signs Vital signs: Vital Signs Temp 98.7 F 03/01/23 11:03 Pulse 83 03/01/23 11:03 Resp 16 03/01/23 11:03 BP 147/75 03/01/23 11:03 Pulse Ox 98 03/01/23 11:03 FiO2 Intake & Output 02/28/23 03/01/23 03/01/23 18:59 06:59 18:59 Intake Total 100 240 220 Balance 100 240 220 Weight 78.2 kg Intake: IV 100 Oral 240 220 Other: Voiding Method Toilet # Voids 2 1 - Exam GENERAL EXAM: Alert, active, pleasant 77-year-old female, on room air, comfortab le in no apparent distress. HEAD: Normocephalic. EYES: Normal reaction of pupils, equal size. NOSE: Clear with pink turbinates. THROAT: No erythema or exudates. NECK: No masses, no JVD. CHEST: No chest wall deformity. LUNGS: Equal air entry with no crackles, wheeze, rhonchi or dullness. CVS: S1 and S2 normal with an audible murmur, regular rhythm. ABDOMEN: No hepatosplenomegaly, normal bowel sounds, no guarding or rigidity. SPINE: No scoliosis or deformity SKIN: No rashes CENTRAL NERVOUS SYSTEM: No focal deficits, tone is normal in all 4 extremities. EXTREMITIES: There is no peripheral edema. No clubbing, no cyanosis. Peripheral pulses are intact. - Labs CBC & Chem 7: 03/01/23 08:15 03/01/23 08:15 Labs: Abnormal Lab Results - Last 24 Hours (Table) 02/28/23 03/01/23 03/01/23 Range/Units 16:10 08:15 08:15 Glucose 164 H (74-99) mg/dL POC Glucose (mg/dL) 155 H (70-110) mg/dL Total Protein 6.1 L (6.3-8.2) g/dL Crossmatch See Detail 03/01/23 Range/Units 11:32 Glucose (74-99) mg/dL POC Glucose (mg/dL) 114 H (70-110) mg/dL Total Protein (6.3-8.2) g/dL Crossmatch Microbiology - Last 24 Hours (Table) 02/27/23 14:36 Nasal Screen MRSA/MSSA - Final Nasal Swab Staphylococcus aureus,Not MRSA Assessment and Plan Assessment: Coronary artery disease with left main disease Ischemic cardiomyopathy and LV dysfunction with ejection fraction of 35% Moderate to severe mitral regurgitation Severe persistent asthma based on clinical symptoms and multiple admissions for asthma in the past. However her PFT in the office did not show a significant obstructive picture. Previous tobacco dependence Type 2 diabetes Degenerative disc disease GERD without esophagitis Plan: The patient was seen and evaluated MARY, medications and labs reviewed Currently stable and on room air Plan is for bypass surgery and mitral valve repair tomorrow Cleared for surgery from the pulmonary standpoint Continue her bronchodilators, prednisone Educated regarding the use of the incentive spirometer We will continue to follow and make further recommendations based on her clinical status 1 have personally seen and examined the patient, performed the documentation and the assessment and plan as written. Number of minutes spent on the visit: 10.
--- NOTE | 2023-03-01 13:23 | P.CONS ---
History of Present Illness - Reason for Consult Consult date: 03/01/23 Medical management - Chief Complaint Chest pain - History of Present Illness * 77-year-old patient with past medical history significant for coronary artery disease, history of diabetes mellitus, asthma, hyperlipidemia osteoarthritis history of cardiomyopathy presented to the emergency department and admitted for cardiomyopathy and ischemic workup. Patient was status post cardiac catheterization and was noted to have multivessel coronary artery disease and was referred to cardiothoracic surgery for surgical intervention. * Patient been worked up for CABG and seen by multiple specialties including pulmonary medicine, internal medicine consulted as well for medical management * Patient evaluated bedside along with some denies of any acute symptoms denies fever, chills, chest pain does complain of. Edema Review of Systems REVIEW OF SYSTEMS: NEGATIVE EXCEPT FOR lower extremity edema CONSTITUTIONAL: No fever, no malaise, no fatigue. HEENT: No recent visual problems or hearing problems. Denied any sore throat. CARDIOVASCULAR: No chest pain, orthopnea, PND, no palpitations, no syncope. PULMONARY: No shortness of breath, no cough, no hemoptysis. GASTROINTESTINAL: No diarrhea, no nausea, no vomiting, no abdominal pain. NEUROLOGICAL: No headaches, no weakness, no numbness. HEMATOLOGICAL: Denies any bleeding or petechiae. GENITOURINARY: Denies any burning micturition, frequency, or urgency. MUSCULOSKELETAL/RHEUMATOLOGICAL: Denies any joint pain, swelling, or any muscle pain. ENDOCRINE: Denies any polyuria or polydipsia. Past Medical History Past Medical History: Asthma, Coronary Artery Disease (CAD), Diabetes Mellitus, GERD/Reflux, Hyperlipidemia, Osteoarthritis (OA) Additional Past Medical History / Comment(s): cardiomyopathy, elevated heart rate, overactive bladder, glaucoma, hx elevated sed rate,lelo knee pain-arthritis and [place] cyst, covid in 09/2022 History of Any Multi-Drug Resistant Organisms: None Reported Past Surgical History: Appendectomy, Section, Hysterectomy, Orthopedic Surgery Additional Past Surgical History / Comment(s): 3 left breast biopsies, 3 needle loc on right breast- pt states all benign. lelo rotator cuff repair, lelo. hammer toe and bunionectomy, trigger finger release lelo ring fingers, meniscus repair lelo knees, carpal tunnel lelo, rt thumb fusion, lt ankle surgery, D&C, bilateral cataract surgery and laser surgery, COLONOSCOPY , EGD WITH BIOPSY Past Anesthesia/Blood Transfusion Reactions: No Reported Reaction Smoking Status: Former smoker - Past Family History Mother History Unknown: Yes Family Medical History: Congestive Heart Failure (CHF), CVA/TIA, Hypertension Son(s) History Unknown: Yes Family Medical History: Deep Vein Thrombosis (DVT) Additional Family Medical History / Comment(s): DVT IN LEG Father Family Medical History: Congestive Heart Failure (CHF), Hypertension Medications and Allergies Home Medications Medication Instructions Recorded Confirmed Type Rosuvastatin Calcium [Crestor] 5 mg PO DAILY 07/16/14 02/27/23 History Solifenacin Succinate [Vesicare] 10 mg PO HS 07/16/14 02/27/23 History atenoloL [Tenormin] 25 mg PO BID 07/16/14 02/27/23 History Latanoprost Ophth [Xalatan 0.005%] 1 drop BOTH EYES HS 08/17/17 02/27/23 History Furosemide [Lasix] 20 mg PO MOWEFR 12/16/20 02/27/23 History Digoxin 0.25 mg PO HS 04/15/21 02/27/23 History Carboxymethylcellulose Sodium 1 drop BOTH EYES TID PRN 11/16/22 02/27/23 History [Refresh Tears] Esomeprazole Magnesium [NexIUM] 20 mg PO DAILY 11/16/22 02/27/23 History Multivit with Calcium,Iron,Min 1 tab PO DAILY 11/16/22 02/27/23 History [Women's Multivitamin] Nystatin 100,000 Unit/ml Susp 5 ml PO TID BETWEEN MEALS 11/16/22 02/25/23 History [Mycostatin Oral Susp] Ascorbic Acid [Vitamin C] 500 mg PO DAILY 12/03/22 02/27/23 History metFORMIN HCL [Glucophage] 500 mg PO 1700 01/11/23 02/27/23 History Albuterol Inhaler [Ventolin Hfa 2 puff INHALATION RT-QID PRN each 01/16/23 02/27/23 Rx Inhaler] Codeine Phosphate/Guaifenesin 10 ml PO Q4H PRN #100 ml 01/16/23 02/25/23 Rx [Codeine Phosphate/Guaifenesin 10-100 mg/5 ml] predniSONE 10 mg PO DIRECTED #30 tab 01/16/23 02/27/23 Rx Acetaminophen [Tylenol Extra 500 mg PO DAILY 02/25/23 02/25/23 History Strength] Enalapril [Vasotec] 5 mg PO HS 02/25/23 02/27/23 History Allergies Allergy/AdvReac Type Severity Reaction Status Date / Time budesonide Allergy Wheezing Verified 02/25/23 12:25 fluticasone Allergy Rapid Verified 02/25/23 12:25 Heart Rate, dizziness formoterol Allergy Wheezing, Verified 02/25/23 12:25 [From [employer]] Dizziness, Rapid Heart Rate, High BP glycopyrrolate Allergy Wheezing, Verified 02/25/23 12:25 [From [employer]] Dizziness, Rapid Heart Rate, High BP levalbuterol [From Xopenex] Allergy Wheezing, Verified 02/25/23 12:25 Dizziness azithromycin [From Zithromax] AdvReac intercts Verified 02/25/23 12:25 w/Digoxin benzonatate AdvReac Gerd Verified 02/25/23 12:25 dexamethasone AdvReac Gerd Verified 02/25/23 12:25 doxycycline AdvReac Gerd Verified 02/25/23 12:25 ipratropium AdvReac Rapid Verified 02/25/23 12:25 Heart Rate pravastatin sodium AdvReac Swelling Verified 02/25/23 12:25 [From Pravachol] and pain in legs prednisone AdvReac causes Verified 02/25/23 12:25 thrush ranitidine AdvReac Nausea & Verified 02/25/23 12:25 Vomiting & Diarrhea Sulfa (Sulfonamide AdvReac Rash/Hives Verified 02/25/23 12:25 Antibiotics) Physical Exam Vitals: Vital Signs Temp Pulse Pulse Resp BP BP Pulse Ox 03/01/23 11:03 98.7 F 83 16 147/75 98 03/01/23 08:00 98.2 F 85 16 149/72 98 03/01/23 04:00 98.4 F 82 16 151/66 98 02/28/23 23:35 98.2 F 77 16 114/51 96 02/28/23 19:53 98.6 F 82 16 131/72 98 02/28/23 15:08 98 F 75 17 135/61 98 Intake and Output 02/28/23 03/01/23 03/01/23 22:59 06:59 14:59 Intake Total 240 338 Balance 240 338 Intake: Oral 240 338 Other: Voiding Method Toilet # Voids 1 1 Weight 78.2 kg PHYSICAL EXAMINATION: GENERAL: The patient is alert and oriented x3, not in any acute distress. Well developed, well nourished. HEENT: Pupils are round and equally reacting to light. EOMI. No scleral icterus. No conjunctival pallor. Normocephalic, atraumatic. No pharyngeal erythema. No thyromegaly. CARDIOVASCULAR: S1 and S2 present. murmurs, rubs, or gallops. 1+ LE edema PULMONARY: Chest is clear to auscultation, no wheezing or crackles. ABDOMEN: Soft, nontender, nondistended, normoactive bowel sounds. No palpable organomegaly. MUSCULOSKELETAL: No joint swelling or deformity. EXTREMITIES: No cyanosis, clubbing, or pedal edema. NEUROLOGICAL: Gross neurological examination did not reveal any focal deficits. SKIN: No rashes. Results CBC & Chem 7: 03/01/23 08:15 03/01/23 08:15 Labs: Abnormal Lab Results - Last 24 Hours (Table) 02/28/23 03/01/23 03/01/23 Range/Units 16:10 08:15 08:15 Glucose 164 H (74-99) mg/dL POC Glucose (mg/dL) 155 H (70-110) mg/dL Total Protein 6.1 L (6.3-8.2) g/dL Crossmatch See Detail 03/01/23 Range/Units 11:32 Glucose (74-99) mg/dL POC Glucose (mg/dL) 114 H (70-110) mg/dL Total Protein (6.3-8.2) g/dL Crossmatch Microbiology - Last 24 Hours (Table) 02/27/23 14:36 Nasal Screen MRSA/MSSA - Final Nasal Swab Staphylococcus aureus,Not MRSA Assessment and Plan Assessment: Assessment * Coronary artery disease with left main disease * Ischemic cardiomyopathy and LV dysfunction with ejection fraction of 35-40% b ased on transthoracic echo from 09/2022 mitral regurgitation * Severe persistent asthma * Type 2 diabetes * Degenerative disc disease * GERD without esophagitis Plan For coronary artery disease and cardiomyopathy patient seen by cardiology as well as cardiac surgery planning CABG in this hospitalization, plan for mitral valve repair on 03/02 From medical standpoint patient remains stable at this time Continue current medications including aspirin, Lipitor, atenolol Preoperative orders placed by cardiac surgery Time with Patient: Greater than 30
[2023-03-01] MEDS ORDERED: ALBUTEROL NEBULIZED 2.5 MG/3 ML INHALATION SCH (16:00)
[2023-03-01 16:37] LABS: Glucose,Whole Blood 131 mg/dL (70-110)
[2023-03-01 19:58] LABS: Glucose,Whole Blood 158 mg/dL (70-110)
[2023-03-01] MEDS: DIGOXIN 250 MCG TAB PO SCH (21:25)
[2023-03-01] MEDS: ATORVASTATIN 80 MG TAB PO SCH (21:25)
[2023-03-01] MEDS: VESICARE 10 MG PO SCH (21:28)
[2023-03-01] MEDS: LATANOPROST 0.005% OPHTH DROPS 2.5 ML BTL BOTH EYES SCH (21:30)
[2023-03-01] MEDS: ALBUTEROL 90 MCG INHALATION SCH (22:45)
[2023-03-02] MEDS: NITROGLYCERIN OINT 1 INCH/GM PACKET TOPICAL SCH (00:20)
[2023-03-02 03:28] LABS: Glucose,Whole Blood 119 mg/dL (70-110)
[2023-03-02] MEDS ORDERED: PAPAVERINE 360 MG in SODIUM CHLORIDE 0.9% 90 ML IV ONE (05:00)
[2023-03-02] MEDS ORDERED: CALCIUM CHLORIDE 100 MG/ML 10 ML SYRINGE IVP ONE (05:00)
[2023-03-02] MEDS ORDERED: INSULIN REGULAR 100 UNIT in SODIUM CHLORIDE 0.9% 100 ML IV SCH (05:00)
[2023-03-02] MEDS ORDERED: HEPARIN SODIUM,PORCINE 5,000 UNIT in SODIUM CHLORIDE 0.9% 500 ML 500 ML IV ONE (05:00)
[2023-03-02] MEDS ORDERED: SODIUM BICARB 8.4% 50 ML SYR (1 MEQ/ML) IV ONE (05:00)
[2023-03-02] MEDS ORDERED: PHENYLEPHRINE 10 MG/ML VIAL IV ONE (05:00)
[2023-03-02] MEDS ORDERED: ALBUMIN HUMAN 25% 50 ML in EMPTY BAG 1 BAG IVPB ONE (05:00)
[2023-03-02] MEDS ORDERED: PROTAMINE SULFATE 10 MG/ML 25 ML VIAL IV ONE ×2 (05:00→07:50)
[2023-03-02] MEDS ORDERED: HEPARIN SODIUM 1,000 UN/ML (10ML VL) IV ONE (05:00)
[2023-03-02] MEDS ORDERED: ALBUMIN HUMAN 5% 500 ML in EMPTY BAG 1 BAG IVPB ONE ×6 (05:00)
[2023-03-02] MEDS ORDERED: NITROGLYCERIN-D5W PMX 50 MG in DEXTROSE/WATER 1 250ML.BAG IV SCH ×2 (05:00→13:32)
[2023-03-02] MEDS ORDERED: MANNITOL 25% 12.5 GM/50 ML VIAL IV ONE ×2 (05:00)
[2023-03-02] MEDS ORDERED: MAGNESIUM SULFATE 16.24 MEQ in EMPTY SYRINGE 1 SYR IV ONE (05:00)
[2023-03-02] MEDS ORDERED: CLEVIDIPINE BUTYRATE 25 MG in EMPTY BAG 1 BAG IV SCH ×2 (05:00→13:32)
[2023-03-02] MEDS ORDERED: PHENYLEPHRINE 40 MG in SODIUM CHLORIDE 0.9% 250 ML IV ONE (05:00)
[2023-03-02] MEDS ORDERED: CHLORHEXIDINE GLUCONATE 15 ML CUP MUCOUS MEM ONE (05:00)
[2023-03-02] MEDS ORDERED: ceFAZolin 1,000 MG in SODIUM CHLORIDE 0.9% IRRIGATIO 1,000 ML IRRIGATION ONE (05:00)
[2023-03-02] MEDS ORDERED: ATORVASTATIN 10 MG TAB PO ONE (05:00)
[2023-03-02] MEDS ORDERED: PROTAMINE SULFATE 250 MG in EMPTY BAG 1 BAG IV ONE (05:00)
[2023-03-02] MEDS ORDERED: NOREPINEPHRINE 4 MG in SODIUM CHLORIDE 0.9% 250 ML IV SCH (05:00)
[2023-03-02] MEDS ORDERED: TRANEXAMIC ACID 2,000 MG in SODIUM CHLORIDE 0.9% 80 ML IV ONE (05:00)
[2023-03-02] MEDS ORDERED: ASPIRIN 325 MG TAB PO ONE (05:00)
[2023-03-02] MEDS ORDERED: NITROGLYCERIN-D5W PMX 25 MG/250 ML BTL IV ONE ×2 (05:00→07:50)
[2023-03-02] MEDS ORDERED: LACTATED RINGERS 1,000 ML IV SCH (05:00)
[2023-03-02] MEDS ORDERED: METOPROLOL TARTRATE 12.5 MG TAB PO ONE (05:00)
[2023-03-02] MEDS ORDERED: CARDIOPLEGIC SOLN (K+ 16 MEQ/L 1,000 ML with SOD BICARB SYR 8.4% (1 MEQ/ML) 20 ML, LIDO... PERFUSION NR ×3 (05:00)
[2023-03-02] MEDS: PANTOPRAZOLE 40 MG TABLET PO SCH (05:16)
[2023-03-02 06:08] LABS: Glucose,Whole Blood 127 mg/dL (70-110)
[2023-03-02] MEDS ORDERED: INSULIN REGULAR 100 UNIT/ML VIAL (IV) ONE (07:50)
[2023-03-02] MEDS ORDERED: HEPARIN SODIUM,PORCINE 5,000 UNIT/ML 1 ML VIAL ONE (07:50)
[2023-03-02] MEDS ORDERED: MIDAZOLAM HCL 10 MG/10 ML VIAL ONE (07:50)
[2023-03-02] MEDS ORDERED: ELECTROLYTE-R (PH 7.4) 1,000 ML IV.SOLN IV ONE (07:50)
[2023-03-02] MEDS ORDERED: MAGNESIUM SULFATE 4 MEQ/ML 10ML VIAL ONE (07:50)
[2023-03-02] MEDS ORDERED: POTASSIUM CHLORIDE OPEN HEART 20 MEQ/50 ML BAG IVPB ONE (07:50)
[2023-03-02] MEDS ORDERED: fentaNYL (PF) 50 MCG/ML 50 ML VIAL ONE (07:50)
[2023-03-02] MEDS ORDERED: LIDOCAINE HCL/PF 20 MG/ML 10 ML AMP ONE (07:50)
[2023-03-02] MEDS ORDERED: VECURONIUM 10 MG VIAL IV ONE (07:50)
[2023-03-02] MEDS ORDERED: TRANEXAMIC ACID IN NACL,ISO-OS 1,000 MG/100 ML BAG ONE (07:50)
[2023-03-02] MEDS ORDERED: PROPOFOL 10 MG/ML 20 ML VIAL IV ONE (07:50)
[2023-03-02] MEDS ORDERED: WATER FOR INJECTION, STERILE 10 ML VIAL IV ONE (07:50)
[2023-03-02] MEDS ORDERED: PROTAMINE SULFATE 10 MG/ML 5 ML VIAL IV ONE (07:50)
[2023-03-02] MEDS ORDERED: HEPARIN SODIUM,PORCINE 10,000 UNIT/ML 1 ML VIAL ONE (07:50)
[2023-03-02] MEDS ORDERED: CALCIUM CHLORIDE 100 MG/ML 10 ML SYRINGE ONE (07:50)
[2023-03-02] MEDS ORDERED: ALBUMIN HUMAN 5% (25gm) 500 ML VIAL IVPB ONE (07:50)
[2023-03-02] MEDS ORDERED: PHENYLEPHRINE-0.9% NACL SYG 1,000 MCG/10 ML SYRINGE ONE (07:50)
[2023-03-02] MEDS: ALBUTEROL 90 MCG INHALATION SCH ×4 (08:21→19:21)
--- NOTE | 2023-03-02 09:39 | P.ANPRN ---
Procedure Note - Anesthesia - Invasive Line Right Arterial Line Time Out Performed: Yes Date of Procedure: 03/02/23 Time of Procedure: 07:15 Location of Patient: PreOp Preparation: Sterile Prep, Sterile Dressing Arterial Line Location: Radial Ultrasound Used: No Needle Guage: 20 Image Stored and Saved: Yes Narrative: R radial arterial line placed by SRNA Right Central Line Time Out Performed: Yes Date of Procedure: 03/02/23 Time of Procedure: 07:25 Location of Patient: PreOp Preparation: Sterile Prep, Sterile Dressing Central Line Location: Internal Jugular Ultrasound Used: Yes Purpose - Visualization and Identification of Vasculature: Yes Needle Guage: 18 Image Stored and Saved: Yes Narrative: Central line placement per sterile protocol utilized. Right [place] Time Out Performed: Yes Date of Procedure: 03/02/23 Time of Procedure: 07:35 Location of Patient: PreOp Preparation: Sterile Prep, Sterile Dressing [place] Line Location: Internal Jugular Narrative: SWAN floated until PA waveform obtained. Secured at 40 cm
[2023-03-02] MEDS ORDERED: EPINEPHrine 4 MG in DEXTROSE 5% IN WATER 250 ML IV STA ×2 (10:59)
[2023-03-02 11:00] LABS: ABG Glucose Whole Blood 101 mg/dL (75-99); ABG HCO3 26 mmol/L (21-25); ABG Ionized Calcium 4.2 mg/dL (4.5-5.3); ABG PCO2 31 mmHg (35-45); ABG PH 7.53 (7.35-7.45); ABG Potassium Whole Blood 4.1 mmol/L (3.4-4.5); ABG Sodium Whole Blood 140 mmol/L (135-146); ABG TCO2 27 mmol/L (19-24)
[2023-03-02 13:06] LABS: ABG Hematocrit 23 % (34.0-46.0); ABG PO2 >420 mmHg (83-108)
[2023-03-02] MEDS ORDERED: Magnesium Replacement Protocol 1 EACH MISC MISCELLANE PRN (13:32)
[2023-03-02] MEDS ORDERED: DEXTROSE 5% IN WATER 100 ML with AMIODARONE 150 MG IV PRN (13:32)
[2023-03-02] MEDS ORDERED: ONDANSETRON 4 MG/2 ML VIAL IVP PRN (13:32)
[2023-03-02] MEDS ORDERED: METOCLOPRAMIDE 5 MG/ML 2 ML VIAL IVP PRN (13:32)
[2023-03-02] MEDS ORDERED: DEXMEDETOMIDINE/0.9% NACL(PMX) 400 MCG in EMPTY BAG 1 BAG IV SCH (13:32)
[2023-03-02] MEDS ORDERED: DEXTROSE 50% SYRINGE 50 ML IVP PRN ×2 (13:32)
[2023-03-02] MEDS ORDERED: Potassium Replacement Protocol 1 EACH MISC MISCELLANE PRN (13:32)
[2023-03-02] MEDS ORDERED: HYDROcodone/APAP 10-325MG 1 EACH TAB PO PRN (13:32)
[2023-03-02] MEDS ORDERED: CALCIUM GLUCONATE IN NACL 2 GM in SALINE 1 100ML.BAG IVPB PRN (13:32)
[2023-03-02] MEDS ORDERED: AMIODARONE 360 MG in DEXTROSE 5% IN WATER 200 ML IV ONE ×2 (13:32)
[2023-03-02] MEDS: MULTIVITAMINS, THERA 1 EACH TAB PO SCH (13:38)
[2023-03-02] MEDS: MUPIROCIN 2% OINT 22 GM TUBE TOPICAL SCH ×2 (13:38→21:11)
[2023-03-02] MEDS: ASCORBIC ACID 500 MG TAB PO SCH (13:38)
--- NOTE | 2023-03-02 13:47 | P.ANPRN ---
Procedure Note - Anesthesia - MARY Intraop Pre Bypass MARY Intraop - Anesthesia Indication: MVr and CABG Date of Procedure: 03/02/23 Pre-operative Diagnosis: MR and CAD Post-operative Diagnosis: Same Surgeon: ADE LAWLER Left Ventricle: Severe hypokinesis w/ EF 30%. Worst wall motion inferior and inferoseptal regions Ejection Fraction: Other (30%) Left Ventricle Hypertrophy: No R. Ventricle Function: Hypokinesis Mild Anatomy: Trileaflet Aortic Stenosis: None Aortic Regurgitation: None Mitral Stenosis: None Mitral Regurgitation: Moderate Tricuspid Stenosis: None Tricuspid Regurgitation: None Pulmonic Stenosis: None Pulmonic Regurgitation: None R. Atrial Dilation: No R. Atrial PFO: No L. Atrial Dilation: Yes Aortic Dissection: No Aortic Calcification: Mild Plural Effusion: None - MARY Intraop Post Bypass MARY Intraop Post Bypass Procedure Performed: Mitral annuloplasty, CABG x 3 Left Ventricle: EF 25%. Severe hypokinesis. Worst wall motion inferior and inferoseptal regions Ejection Fraction: Other (25) Regional Wall Motion Abnormalities: Other (akinesis inferior and inferoseptal) R. Ventricle Function: Hypokinesis Mild Aortic Valve: Unchanged Mitral Valve: Mean gradient 4 mmHg. No MR. Annuloplasty Tricuspid: Mild TR Pulmonic: Unchanged Aortic Dissection: No (Mobile echodensity right atrium)
[2023-03-02] MEDS: LACTATED RINGERS 1,000 ML IV SCH (13:57)
--- NOTE | 2023-03-02 14:16 | P.PN ---
Subjective Progress Note Date: 03/02/23 Principal diagnosis: Multiple vessel coronary artery disease requiring CABG SUBJECTIVE : Patient not seen taken to or for CABG REVIEW OF SYSTEMS: Not available patient in OR for CABG PHYSICAL EXAMINATION: Not available patient, Vitals, Lab reviewed 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 Ischemic cardiomyopathy and LV dysfunction with ejection fraction of 35-40% based on transthoracic echo from 09/2022 mitral regurgitation Severe persistent asthma Type 2 diabetes Degenerative disc disease GERD without esophagitis Plan * For coronary artery disease and cardiomyopathy patient seen by cardiology as well as cardiac surgery> IN OR FOR CABG 03/02/23 * Internal medicine team will follow along postoperatively patient to go to ICU POST CABG * Labs reviewed Objective - Vital Signs Vital signs: Vital Signs Temp 98.2 F 03/02/23 05:05 Pulse 84 03/02/23 05:05 Resp 18 03/02/23 05:05 BP 153/75 03/02/23 05:05 Pulse Ox 98 03/02/23 05:05 FiO2 Intake & Output 03/01/23 03/02/23 03/02/23 18:59 06:59 18:59 Intake Total 456 540 53 Output Total 645 Balance 456 540 -592 Weight 77.4 kg Intake: IV 53 Oral 456 540 Output: Urine 600 Estimated Blood Loss 45 Other: Voiding Method Toilet Toilet # Voids 2 2 - Labs CBC & Chem 7: 03/01/23 08:15 03/01/23 08:15 Labs: Abnormal Lab Results - Last 24 Hours (Table) 03/01/23 03/01/23 03/01/23 Range/Units 08:15 16:35 19:57 POC Glucose (mg/dL) 131 H 158 H (70-110) mg/dL Crossmatch See Detail 03/02/23 03/02/23 Range/Units 03:25 06:07 POC Glucose (mg/dL) 119 H 127 H (70-110) mg/dL Crossmatch
--- NOTE | 2023-03-02 14:40 | P.OP ---
Date of Procedure: 03/02/23 Preoperative Diagnosis: 1. Left main coronary artery disease 2. Severe mitral regurgitation 3. Severe restrictive lung disease with asthma on chronic steroids 4. HTN 5. HLD 6. DM Postoperative Diagnosis: Same Procedure(s) Performed: 1. Coronary Artery Bypass grafting x 2. Left internal thoracic artery to left anterior descending artery, saphenous vein from aorta to obtuse marginal 1 2. Left atrial appendage ligation with #35mm AtriClip 3. Mitral Valve repair with #26 Physio II Annuloplasty ring 4. Endoscopic left greater saphenous vein harvest 5. Graft flow measurements using the Medi-Stim flow meter system 6. Insertion of right common femoral arterial line 7. Trans-esophageal echo Anesthesia: LEE ANNA Surgeon: Seth Astorga Underliner #1: Barak Jackson Underliner #2: Faisal Degroot Estimated Blood Loss (ml): 500 Pathology: none sent Condition: critical Disposition: ICU Indications for Procedure: This patient is a pleasant 77 year-old female who is a former smoker, quit in 1978 who has had multiple repeat admission for asthma flares and is on chronic steroids. She has shortness of breath at baseline which has been attributed to her asthma but PFTs reveals a restrictive component. She underwent elective angiography which showed severe distal left main in addition to proximal LAD disease. In addition MARY confirmed severe central mitral regurgitation. Given her symptomology and nature of disease, I recommended CABG with MVr. All risks, benefits and alternatives including her STS risk of mortality which was estimated at 7% was discussed with the patient and she was in agreement to proceed. Operative Findings: Graft Flows BRITO-LAD 37ml/min, P.I. 3.6 (BRITO 1.75mm good conduit, LAD 1.5mm diffusely diseased) Saphenous vein to OM1, P.I. 24ml/min, P.I. 2.4 (SV very small 1.5mm, OM 1.75mm good target) Description of Procedure: The patient underwent central line, right radial arterial line, and [place] catheter placement in the pre-operative suite by the anesthesia team. The patient was then brought to the operating room and placed in the supine position. General anesthesia was induced and the patient was prepped from the chin to the ankles in the usual sterile fashion. A time-out was performed and antibiotics were given. Ultrasound guided micropuncture was used to place a 4F sheath in the right common femoral artery. A midline incision was made on the chest and carried down to bone. A median sternotomy was performed. Hemostasis on the bone was achieved using electrocautery only. The left pleura was entered and the left internal thoracic artery was harvested in a skeletonized fashion. Simultaneously a physician optometrist assistant harvested the left greater saphenous vein in an endoscopic fashion. The vein was small on sides. The patient was systemically heparinized and the RUBÉN was transected and placed in a papaverine jacuzzi. A left sided chest tube was placed. The pericardium was incised in a reverse T-fashion and a pericardial cradle was created. The patients aortic arch, SVC and right atrial appendage were cannulated for arterial and bi-caval venous cannulation. Pledgets were used only on the arch cannulation site. Antegrade and retrograde cannulas were placed in the ascending aorta and indirectly in the coronary sinus respectively. The conduit was examined and the, GSV was of decent quality but extremely small at about 1.5mm. Cardiopulmonary bypass was instituted once ACT >480. A 35mm AtriClip was placed on the left atrial appendage effectively ligating it. Tape was placed around the SVC and IVC. The targets were examined and the heart was arrested using antegrade and retrograde crystalloid cardioplegia. Retrograde cardioplegia was re-dosed at 60 minutes. An arteriotomy was created on the 1st obtuse marginal artery. This was 1.75mm and a decent target. An endo to side anastomosis between the OM and saphenous vein was created using a running 7-0 prolene. The pericardium was then incised to create a pathway for the BRITO. Care was taken to avoid injury to phrenic nerve. Next the RUBÉN was anastomosed to the mid LAD in an end to side fashion using a running 8-0 Prolene. The LAD was diffusely diseased and about 1.5mm in size. Next the intra-atrial groove was dissected out and a left atriotomy was made. The perry restractor was used for visualization. The mitral valve was examined. There was no flail segments or torn cords. The posterior leaflet was especially retracted and tethered. 2-0 TiCron sutures were placed circumferentially around the annulus. These were passed through a 26mm Physio II annuloplasty ring and tied down. A leak test was performed which was negative for residual leak. The left atriotomy was closed with a 4-0 prolene x 2 and de- aired. The patient was placed in the Trendelenburg position and the clamp was removed. Graft flow measurements were taken using the Medi-Stim device and they were excellent. Atrial and ventricular wires were placed and all of the distals were checked for hemostasis. The patient was weaned off cardiopulmonary bypass and decannulated requiring mild pressors and inotropes. The pericardium was closed. A 32F chest tube and 19F Rolf were left in the mediastinum and right pleura respectively and the sternum was re-approximated using pioneer cables. The fascia was closed with Ethibond and the subcutaneous tissues and skin, the sternum, and leg were closed in Vicryl layers. The patient was transported to the CVICU without any major complications. MARY showed that EF was about 35% at the conclusion of the case and no mitral regurgitation. There was some thrombus noted in the right atrial of unclear significance. It did not appear to be attached to the tricuspid valve.
[2023-03-02 14:41] LABS: Glucose,Whole Blood 137 mg/dL (70-110)
--- NOTE | 2023-03-02 15:09 | XR ---
EXAMINATION TYPE: XR chest 1V portable DATE OF EXAM: 03/02/2023 HISTORY: Post Operative Cardiac Surgery COMPARISON: Pre-op for a 23 TECHNIQUE: Single view of the chest is submitted. FINDINGS: Endotracheal tube, NG tube, SG catheter, mediastinal drains and chest tubes are appropriately placed. Sternotomy wires and cardiac valvular prosthesis. Post operative changes of CABG. No sizeable pneumothorax. Scattered Pleural-parenchymal opacities may reflect atelectasis. The heart mildly enlarged. IMPRESSION: 1. Post operative changes as discussed
[2023-03-02 15:11] LABS: Basophils % (A) 0 %; Eosinophils # (A) 0.1 k/uL (0-0.7); Eosinophils % (A) 1 %; HCT 25.7 % (34.0-46.0); Lymphocytes % (A) 22 %; MCHC 32.4 g/dL (31.0-37.0); MCV 89.5 fL (80.0-100.0); Mean Platelet Volume 8.7; Monocytes # (A) 0.8 k/uL (0-1.0); Monocytes % (A) 6 %; Neutrophils # (A) 9.6 k/uL (1.3-7.7); Neutrophils % (A) 70 %; Platelet Count 108 k/uL (150-450); RBC 2.87 m/uL (3.80-5.40); RDW 13.6 % (11.5-15.5); WBC 13.7 k/uL (3.8-10.6)
[2023-03-02 15:16] LABS: Ionized Calcium 4.6 mg/dL (4.5-5.3)
[2023-03-02 15:17] LABS: ABG HCO3 24 mmol/L (21-25); ABG PCO2 49 mmHg (35-45); ABG PH 7.29 (7.35-7.45); ABG PO2 301 mmHg (83-108); ABG TCO2 25 mmol/L (19-24)
[2023-03-02 15:17] LABS: HGB 8.3 gm/dL (11.4-16.0)
[2023-03-02] MEDS ORDERED: SODIUM BICARB 8.4% 50 ML SYR (1 MEQ/ML) ONE (15:25)
[2023-03-02 15:27] LABS: ALT 37 U/L (4-34); AST 79 U/L (14-36); African American GFR (CKD) >90 (>60 ml/min/1.73 sqM); Albumin 3.2 g/dL (3.5-5.0); Alkaline Phosphatase <20 U/L (38-126); Anion Gap 6 mmol/L; Blood Urea Nitrogen 7 mg/dL (7-17); Calcium 7.1 mg/dL (8.4-10.2); Carbon Dioxide 25 mmol/L (22-30); Chloride 110 mmol/L (98-107); Glucose 129 mg/dL (74-99); INR 1.3 (<1.2); Magnesium 3.5 mg/dL (1.6-2.3); Non-African American GFR(CKD) >90 (>60 ml/min/1.73 sqM); Partial Thromboplastin Time 33.4 sec (22.0-30.0); Potassium 3.9 mmol/L (3.5-5.1); Prothrombin Time 13.6 sec (9.0-12.0); Sodium 141 mmol/L (137-145); Total Bilirubin 0.6 mg/dL (0.2-1.3); Total Protein 4.6 g/dL (6.3-8.2)
[2023-03-02] MEDS: MILRINONE-D5W PMX 20 MG in DEXTROSE/WATER 1 100ML.BAG IV SCH ×2 (15:48→21:43)
[2023-03-02] MEDS: NOREPINEPHRINE 4 MG in SODIUM CHLORIDE 0.9% 250 ML IV SCH ×2 (15:49→22:49)
[2023-03-02 16:04] LABS: Glucose,Whole Blood 163 mg/dL (70-110)
[2023-03-02] MEDS: ALBUMIN HUMAN 5% 250 ML in EMPTY BAG 1 BAG IVPB PRN ×3 (16:09→18:33)
[2023-03-02] MEDS: INSULIN REGULAR 100 UNIT in SODIUM CHLORIDE 0.9% 100 ML IV SCH (16:28)
[2023-03-02] MEDS: HEPARIN SODIUM,PORCINE/PF 5,000 UNIT/0.5 ML SYRINGE SQ SCH ×2 (16:46→23:26)
[2023-03-02 17:20] LABS: Glucose,Whole Blood 161 mg/dL (70-110)
[2023-03-02] MEDS: ACETAMINOPHEN IV (For NPO) 1,000 MG in EMPTY BAG 1 BAG IVPB SCH ×2 (17:43→23:27)
[2023-03-02 18:05] LABS: Glucose,Whole Blood 156 mg/dL (70-110)
[2023-03-02 19:02] LABS: Glucose,Whole Blood 151 mg/dL (70-110)
[2023-03-02 19:16] LABS: ABG Base Excess 0.5 mmol/L; ABG HCO3 24 mmol/L (21-25); ABG PCO2 33 mmHg (35-45); ABG PH 7.47 (7.35-7.45); ABG PO2 159 mmHg (83-108); ABG TCO2 25 mmol/L (19-24); Allen Test Performed? Yes
[2023-03-02 19:31] LABS: Basophils % (A) 0 %; Eosinophils # (A) 0.1 k/uL (0-0.7); Eosinophils % (A) 1 %; HCT 23.6 % (34.0-46.0); HGB 7.9 gm/dL (11.4-16.0); Lymphocytes # (A) 1.4 k/uL (1.0-4.8); Lymphocytes % (A) 14 %; MCH 29.5 pg (25.0-35.0); MCHC 33.2 g/dL (31.0-37.0); MCV 88.7 fL (80.0-100.0); Mean Platelet Volume 9.5; Monocytes # (A) 0.7 k/uL (0-1.0); Monocytes % (A) 8 %; Neutrophils # (A) 7.4 k/uL (1.3-7.7); Neutrophils % (A) 77 %; Platelet Count 104 k/uL (150-450); RBC 2.66 m/uL (3.80-5.40); RDW 13.9 % (11.5-15.5); WBC 9.6 k/uL (3.8-10.6)
[2023-03-02 20:02] LABS: Glucose,Whole Blood 149 mg/dL (70-110)
[2023-03-02] MEDS: AMIODARONE 450 MG in DEXTROSE 5% IN WATER 250 ML IV SCH ×4 (20:41)
[2023-03-02 21:06] LABS: Glucose,Whole Blood 145 mg/dL (70-110)
[2023-03-02] MEDS: LATANOPROST 0.005% OPHTH DROPS 2.5 ML BTL BOTH EYES SCH (21:11)
[2023-03-02 21:19] LABS: Basophils % (A) 0 %; Eosinophils # (A) 0.1 k/uL (0-0.7); Eosinophils % (A) 1 %; Lymphocytes # (A) 1.2 k/uL (1.0-4.8); Lymphocytes % (A) 12 %; MCH 29.6 pg (25.0-35.0); MCHC 33.3 g/dL (31.0-37.0); MCV 88.8 fL (80.0-100.0); Mean Platelet Volume 9.9; Monocytes # (A) 0.7 k/uL (0-1.0); Monocytes % (A) 7 %; Neutrophils % (A) 80 %; Platelet Count 100 k/uL (150-450); RDW 13.8 % (11.5-15.5)
[2023-03-02 21:52] LABS: Glucose,Whole Blood 139 mg/dL (70-110)
[2023-03-02 22:46] LABS: Glucose,Whole Blood 131 mg/dL (70-110)
[2023-03-02] MEDS ORDERED: HYDROCORTISONE SUCCINATE 100 MG/2 ML VIAL IV STA (23:19)
[2023-03-03] LABS: Glucose,Whole Blood 124 mg/dL (70-110)
[2023-03-03 01:57] LABS: Glucose,Whole Blood 109 mg/dL (70-110)
[2023-03-03 02:52] LABS: Glucose,Whole Blood 123 mg/dL (70-110)
[2023-03-03 04:28] LABS: Glucose,Whole Blood 205 mg/dL (70-110)
[2023-03-03 04:53] LABS: Basophils % (A) 0 %; Eosinophils % (A) 0 %; HCT 27.1 % (34.0-46.0); HGB 8.6 gm/dL (11.4-16.0); Hypochromasia Slight; Lymphocytes # (A) 2.2 k/uL (1.0-4.8); Lymphocytes % (A) 16 %; MCH 29.1 pg (25.0-35.0); MCHC 31.7 g/dL (31.0-37.0); MCV 91.7 fL (80.0-100.0); Mean Platelet Volume 9.7; Monocytes # (A) 0.5 k/uL (0-1.0); Monocytes % (A) 3 %; Neutrophils # (A) 11.2 k/uL (1.3-7.7); Neutrophils % (A) 79 %; Platelet Count 114 k/uL (150-450); RBC 2.95 m/uL (3.80-5.40); RDW 14.1 % (11.5-15.5); WBC 14.1 k/uL (3.8-10.6)
[2023-03-03 05:13] LABS: Glucose,Whole Blood 154 mg/dL (70-110)
[2023-03-03] MEDS: AMIODARONE 450 MG in DEXTROSE 5% IN WATER 250 ML IV SCH ×2 (05:14)
[2023-03-03 06:00] LABS: Glucose,Whole Blood 23 mg/dL (70-110)
[2023-03-03 06:10] LABS: ABG Base Excess -3.3 mmol/L; ABG HCO3 21 mmol/L (21-25); ABG Oxygen Saturation 98.7 % (94-97); ABG PCO2 34 mmHg (35-45); ABG PH 7.41 (7.35-7.45); ABG PO2 99 mmHg (83-108); ABG TCO2 22 mmol/L (19-24); Allen Test Performed? Yes
--- NOTE | 2023-03-03 06:13 | XR ---
EXAM: XR Chest, 1 View CLINICAL HISTORY: Post Operative Cardiac Surgery TECHNIQUE: Frontal view of the chest. COMPARISON: 03/02/2023. FINDINGS/IMPRESSION: Support devices are unchanged. Essentially stable exam. Continued attention on follow-up recommended.
[2023-03-03 06:23] LABS: Glucose,Whole Blood 245 mg/dL (70-110)
[2023-03-03] MEDS ORDERED: ALBUTEROL NEBULIZED 2.5 MG/3 ML INHALATION PRN (06:30)
[2023-03-03 06:49] LABS: Ionized Calcium 4.7 mg/dL (4.5-5.3)
[2023-03-03 06:53] LABS: Glucose,Whole Blood 205 mg/dL (70-110)
[2023-03-03 07:04] LABS: AST 175 U/L (14-36); African American GFR (CKD) 81 (>60 ml/min/1.73 sqM); Albumin 3.2 g/dL (3.5-5.0); Alkaline Phosphatase <20 U/L (38-126); Anion Gap 18 mmol/L; Blood Urea Nitrogen 9 mg/dL (7-17); Calcium 7.4 mg/dL (8.4-10.2); Carbon Dioxide 14 mmol/L (22-30); Chloride 110 mmol/L (98-107); Glucose 197 mg/dL (74-99); Magnesium 2.9 mg/dL (1.6-2.3); Non-African American GFR(CKD) 70 (>60 ml/min/1.73 sqM); Potassium 3.9 mmol/L (3.5-5.1); Sodium 142 mmol/L (137-145); Total Bilirubin 0.8 mg/dL (0.2-1.3); Total Protein 4.7 g/dL (6.3-8.2)
[2023-03-03 07:16] LABS: ALT 96 U/L (4-34)
--- NOTE | 2023-03-03 07:18 | P.PN ---
Subjective Progress Note Date: 03/02/23 Principal diagnosis: Coronary artery disease and mitral valve regurgitation This is a 77-year-old female with history of severe persistent bronchial asthma, former smoker quit in 1973, however looking back at her PFT in the office it was basically unremarkable and nonobstructive in nature. Nonetheless the patient has been experiencing over the last 3 years intermittent episodes of cough wheezing and shortness of breath, and has been requiring multiple courses of steroids, and at one point she was maintained on prednisone for her asthma by Dr. Swift. Patient also has multiple ALLERGIES and she cannot tolerate a lot of the inhalers as listed on her ALLERGY list. Patient was last admitted to the hospital and we saw on consultation on 01/12/2023, patient ended up on prednisone 10 mg daily and again very she inhalers that she can use at home. He goes of presumptive ALLERGY to inhalers. Patient was recently evaluated by Dr. Montes for her abnormal LV dysfunction ejection fraction of 35-40%, and she underwent a cardiac catheterization which showed demonstrated left main coronary artery disease due to this finding, the patient was referred to cardiothoracic surgery for surgical intervention, patient is being worked up for surgery, and part of the workup included a pulmonary consultation for preoperative clearance. Presently the patient denies any shortness of breath at rest, no cough no wheezing she does have chronic dyspnea on exertion. Again I reviewed her last PFT in the office and it was relatively normal based on this alone, I would clear the patient for surgery as scheduled, the benefits of surgery outweigh the risks The patient is seen today 03/01/2023 in follow-up on the cardiac floor. She is currently sitting up in bed. Awake and alert in no acute distress. No worsening shortness of breath, cough or congestion. Her asthma is currently inactive and stable. She is maintaining good O2 saturations in the upper 90s on room air. Afebrile. Hemodynamically stable. She is continued on her bronchodilators. Resumed on her prednisone. MARY from yesterday revealed moderate to severe mitral regurgitation and global hypokinesis with impaired left ventricular systolic function and ejection fraction 35%. Plan per CT services is for coronary revascularization and mitral valve repair possibly tomorrow. I'm seeing this patient today 03/03/2023 in follow-up post elective coronary artery bypass grafts 2 with a BRITO to LAD and saphenous vein graft to the OM 1, mitral valve repair with a #26 Physio II annuloplasty ring, and left atrial appendage ligation. Patient remains intubated after the procedure, with vent settings of assist control, respiratory rate 16, tidal volume 360, FiO2 40%, and PEEP of 5. The patient's postoperative ABG showed a pO2 of 159, pCO2 of 33, and pH of 7.47. Postoperative chest x-ray showed the endotracheal tube approximately 2 cm from the alisson, NG tube coursing below the diaphragm, a pulmonary artery catheter appropriately place, and some postoperative cardiac prosthesis and sternotomy wires. No obvious pneumothorax., On my evaluation, the patient's most recent CO/CI is 2.6 and 1.5 respectively. Patient's blood pressure is hypotensive with a mean arterial pressure of 58. PA pressures are 41/17. Heart rhythm is normal sinus at about 60 bpm. Patient reportedly received a total of 750 ML's of 5% albumin. Currently, norepinephrine is infusing at 7.7 mics per minute, milrinone infusing at 0.375 mics per kilogram per minute, amiodarone is infusing at 0.5 mg/m due to some perioperative atrial fibrillation, and lactated Ringer's is infusing at 50 ML's per hour. Patient has a mediastinal and bilateral right and left pleural chest tubes. The mediastinal chest tube has put out 73 mL of serosanguineous output, and both right and left pleural chest tube sites are wide together and put out approximately 330 ML's of serosanguineous output. Most recent CBC done around 2100 shows a WBC count of 10, hemoglobin 8, hematocrit 24, platelets 100,000. INR 1.3. Patient's BMP at that time showed a sodium 141, potassium 3.9, chloride 110, serum CO2 25, BUN 7, creatinine 0.44, glucose 129. Insulin infusion is currently paused. Urine output is marginal at 20 mL per hour. We did attempt weaning trial on this patient with a pressure support of 8 and a CPAP of 5. Patient was still quite lethargic from sedation and only pulling tidal volumes of 100-200. For this reason, and the fact that the patient's hemodynamic status is marginal at this time, we will hold off on extubating. We will reassess patient's readiness to wean once more alert and able to cooperate with weaning trial. Objective - Vital Signs Vital signs: Vital Signs Temp 98.4 F 03/03/23 00:00 Pulse 80 03/03/23 06:15 Resp 20 03/03/23 06:15 BP 99/38 03/03/23 05:30 Pulse Ox 100 03/03/23 06:15 FiO2 40 03/03/23 04:23 Intake & Output 03/02/23 03/02/23 03/03/23 06:59 18:59 06:59 Intake Total 540 6206.314 1985.376 Output Total 1339 895 Balance 540 -279.834 452.376 Weight 77.4 kg Intake: IV 999 1058 ACETAMINOPHEN IV (For NPO 100 100 ) 1,000 mg In Empty Bag 1 bag @ 400 mls/hr IVPB Q6HR ANURAG Rx#:[id number] Albumin Human 5% 250 ml 500 In Empty Bag 1 bag @ 250 mls/hr IVPB Q1HR PRN Rx#: [id number] CO/CI 80 200 Lactated Ringers 1,000 ml 180 600 @ 50 mls/hr IV .Q20H ANURAG Rx#:[id number] ceFAZolin 2 gm In Sodium 50 50 Chloride 0.9% 50 ml @ 100 mls/hr IVPB ONCE ONE Rx# :[id number] pressure bags 36 108 Intake, IV Titration 60.166 289.376 Amount Dexmedetomidine/0.9% NaCl 2.903 (Pmx) 400 mcg In Empty Bag 1 bag @ Titrate IV . Q0M ANURAG Rx#:[id number] Insulin Regular 100 unit 5.168 47.151 In Sodium Chloride 0.9% 100 ml @ Per Protocol IV .Q0M ANURAG Rx#:[id number] Milrinone-D5w Pmx 20 mg 51.522 In Dextrose/Water 1 100ml .bag @ 0.375 MCG/KG/MIN 8 .708 mls/hr IV .[id number] ANURAG Rx#:[id number] Norepinephrine 4 mg In 45.710 187.800 Sodium Chloride 0.9% 250 ml @ 0.03 MCG/KG/MIN 8. 847 mls/hr IV .Q24H NAURAG Rx#:[id number] propofoL 1,000 mg In 9.288 Empty Bag 1 bag @ Titrate IV .Q0M ANURAG Rx#: [id number] Oral 540 Output: Chest Tube Drainage 254 530 Chest Tube Mediastinal 42 130 Right/Left Chest Tube 212 400 Urine 1040 365 Estimated Blood Loss 45 Other: Voiding Method Toilet Indwelling Catheter Indwelling Catheter # Voids 2 ABP, PAP, CO, CI - Last Documented Arterial Blood Pressure 120/49 Pulmonary Artery Pressure 34/17 Cardiac Output 3.3 Cardiac Index 1.9 - Exam GENERAL EXAM: Lethargic 77 -Stateless female intubated to the mechanical ventilator. HEAD: Normocephalic and atraumatic EYES: Normal reaction of pupils, equal size. NOSE: Clear with pink turbinates. THROAT: No erythema or exudates. NECK: No masses, no JVD. CHEST: Midline Incisional site is clean dry and intact with a wound VAC LUNGS: Equal air entry with no crackles, wheeze, rhonchi or dullness. Synchronous with mechanical ventilator CVS: S1 and S2 normal with no audible murmur, regular rhythm. There is a mild pericardial friction rub. No other extra heart sounds ABDOMEN: No hepatosplenomegaly, bowel sounds absent, no guarding or rigidity. SPINE: No scoliosis or deformity SKIN: No rashes CENTRAL NERVOUS SYSTEM: No focal deficits, tone is normal in all 4 extremities. Patient will awaken and hold eye contact with verbal stimulation, but will not follow commands appropriately at this time. She does fall asleep without stimulation. EXTREMITIES: There is mild bilateral nonpitting lower extremity edema. No clubbing, or cyanosis. Peripheral pulses are intact. - Labs CBC & Chem 7: 03/03/23 04:30 03/02/23 14:53 Labs: Abnormal Lab Results - Last 24 Hours (Table) 03/01/23 03/02/23 03/02/23 Range/Units 08:15 11:01 14:39 WBC (3.8-10.6) k/uL RBC (3.80-5.40) m/uL Hgb (11.4-16.0) gm/dL Hct (34.0-46.0) % Plt Count (150-450) k/uL Neutrophils # (1.3-7.7) k/uL PT (9.0-12.0) sec INR (<1.2) APTT (22.0-30.0) sec ABG pH 7.53 H (7.35-7.45) ABG pCO2 31 L (35-45) mmHg ABG pO2 >420 H (83-108) mmHg ABG HCO3 26 H (21-25) mmol/L ABG Total CO2 27 H (19-24) mmol/L ABG O2 Saturation 100.0 H (94-97) % ABG Hematocrit 23 L (34.0-46.0) % ABG Ionized Calcium 4.2 L (4.5-5.3) mg/dL ABG Glucose 101 H (75-99) mg/dL Hemoglobin 7.6 L (11.4-16.0) gm/dL Chloride (98-107) mmol/L Glucose (74-99) mg/dL POC Glucose (mg/dL) 137 H (70-110) mg/dL Calcium (8.4-10.2) mg/dL Magnesium (1.6-2.3) mg/dL AST (14-36) U/L ALT (4-34) U/L Alkaline Phosphatase (38-126) U/L Total Protein (6.3-8.2) g/dL Albumin (3.5-5.0) g/dL Arterial Blood Glucose 101 H (75-99) mg/dL Crossmatch See Detail 03/02/23 03/02/23 03/02/23 Range/Units 14:53 14:53 14:53 WBC 13.7 H (3.8-10.6) k/uL RBC 2.87 L (3.80-5.40) m/uL Hgb 8.3 L D (11.4-16.0) gm/dL Hct 25.7 L (34.0-46.0) % Plt Count 108 L (150-450) k/uL Neutrophils # 9.6 H (1.3-7.7) k/uL PT 13.6 H (9.0-12.0) sec INR 1.3 H (<1.2) APTT 33.4 H (22.0-30.0) sec ABG pH (7.35-7.45) ABG pCO2 (35-45) mmHg ABG pO2 (83-108) mmHg ABG HCO3 (21-25) mmol/L ABG Total CO2 (19-24) mmol/L ABG O2 Saturation (94-97) % ABG Hematocrit (34.0-46.0) % ABG Ionized Calcium (4.5-5.3) mg/dL ABG Glucose (75-99) mg/dL Hemoglobin (11.4-16.0) gm/dL Chloride 110 H (98-107) mmol/L Glucose 129 H (74-99) mg/dL POC Glucose (mg/dL) (70-110) mg/dL Calcium 7.1 L (8.4-10.2) mg/dL Magnesium 3.5 H (1.6-2.3) mg/dL AST 79 H (14-36) U/L ALT 37 H (4-34) U/L Alkaline Phosphatase <20 L (38-126) U/L Total Protein 4.6 L (6.3-8.2) g/dL Albumin 3.2 L (3.5-5.0) g/dL Arterial Blood Glucose (75-99) mg/dL Crossmatch 03/02/23 03/02/23 03/02/23 Range/Units 15:16 16:03 17:18 WBC (3.8-10.6) k/uL RBC (3.80-5.40) m/uL Hgb (11.4-16.0) gm/dL Hct (34.0-46.0) % Plt Count (150-450) k/uL Neutrophils # (1.3-7.7) k/uL PT (9.0-12.0) sec INR (<1.2) APTT (22.0-30.0) sec ABG pH 7.29 L (7.35-7.45) ABG pCO2 49 H (35-45) mmHg ABG pO2 301 H (83-108) mmHg ABG HCO3 (21-25) mmol/L ABG Total CO2 25 H (19-24) mmol/L ABG O2 Saturation 100.0 H (94-97) % ABG Hematocrit (34.0-46.0) % ABG Ionized Calcium (4.5-5.3) mg/dL ABG Glucose (75-99) mg/dL Hemoglobin (11.4-16.0) gm/dL Chloride (98-107) mmol/L Glucose (74-99) mg/dL POC Glucose (mg/dL) 163 H 161 H (70-110) mg/dL Calcium (8.4-10.2) mg/dL Magnesium (1.6-2.3) mg/dL AST (14-36) U/L ALT (4-34) U/L Alkaline Phosphatase (38-126) U/L Total Protein (6.3-8.2) g/dL Albumin (3.5-5.0) g/dL Arterial Blood Glucose (75-99) mg/dL Crossmatch 03/02/23 03/02/23 03/02/23 Range/Units 18:04 19:01 19:12 WBC (3.8-10.6) k/uL RBC (3.80-5.40) m/uL Hgb (11.4-16.0) gm/dL Hct (34.0-46.0) % Plt Count (150-450) k/uL Neutrophils # (1.3-7.7) k/uL PT (9.0-12.0) sec INR (<1.2) APTT (22.0-30.0) sec ABG pH 7.47 H (7.35-7.45) ABG pCO2 33 L (35-45) mmHg ABG pO2 159 H (83-108) mmHg ABG HCO3 (21-25) mmol/L ABG Total CO2 25 H (19-24) mmol/L ABG O2 Saturation 100.0 H (94-97) % ABG Hematocrit (34.0-46.0) % ABG Ionized Calcium (4.5-5.3) mg/dL ABG Glucose (75-99) mg/dL Hemoglobin (11.4-16.0) gm/dL Chloride (98-107) mmol/L Glucose (74-99) mg/dL POC Glucose (mg/dL) 156 H 151 H (70-110) mg/dL Calcium (8.4-10.2) mg/dL Magnesium (1.6-2.3) mg/dL AST (14-36) U/L ALT (4-34) U/L Alkaline Phosphatase (38-126) U/L Total Protein (6.3-8.2) g/dL Albumin (3.5-5.0) g/dL Arterial Blood Glucose (75-99) mg/dL Crossmatch 03/02/23 03/02/23 03/02/23 Range/Units 19:19 20:01 21:05 WBC (3.8-10.6) k/uL RBC 2.66 L (3.80-5.40) m/uL Hgb 7.9 L (11.4-16.0) gm/dL Hct 23.6 L (34.0-46.0) % Plt Count 104 L (150-450) k/uL Neutrophils # (1.3-7.7) k/uL PT (9.0-12.0) sec INR (<1.2) APTT (22.0-30.0) sec ABG pH (7.35-7.45) ABG pCO2 (35-45) mmHg ABG pO2 (83-108) mmHg ABG HCO3 (21-25) mmol/L ABG Total CO2 (19-24) mmol/L ABG O2 Saturation (94-97) % ABG Hematocrit (34.0-46.0) % ABG Ionized Calcium (4.5-5.3) mg/dL ABG Glucose (75-99) mg/dL Hemoglobin (11.4-16.0) gm/dL Chloride (98-107) mmol/L Glucose (74-99) mg/dL POC Glucose (mg/dL) 149 H 145 H (70-110) mg/dL Calcium (8.4-10.2) mg/dL Magnesium (1.6-2.3) mg/dL AST (14-36) U/L ALT (4-34) U/L Alkaline Phosphatase (38-126) U/L Total Protein (6.3-8.2) g/dL Albumin (3.5-5.0) g/dL Arterial Blood Glucose (75-99) mg/dL Crossmatch 03/02/23 03/02/23 03/02/23 Range/Units 21:05 21:51 22:44 WBC (3.8-10.6) k/uL RBC 2.70 L (3.80-5.40) m/uL Hgb 8.0 L (11.4-16.0) gm/dL Hct 24.0 L (34.0-46.0) % Plt Count 100 L (150-450) k/uL Neutrophils # 8.0 H (1.3-7.7) k/uL PT (9.0-12.0) sec INR (<1.2) APTT (22.0-30.0) sec ABG pH (7.35-7.45) ABG pCO2 (35-45) mmHg ABG pO2 (83-108) mmHg ABG HCO3 (21-25) mmol/L ABG Total CO2 (19-24) mmol/L ABG O2 Saturation (94-97) % ABG Hematocrit (34.0-46.0) % ABG Ionized Calcium (4.5-5.3) mg/dL ABG Glucose (75-99) mg/dL Hemoglobin (11.4-16.0) gm/dL Chloride (98-107) mmol/L Glucose (74-99) mg/dL POC Glucose (mg/dL) 139 H 131 H (70-110) mg/dL Calcium (8.4-10.2) mg/dL Magnesium (1.6-2.3) mg/dL AST (14-36) U/L ALT (4-34) U/L Alkaline Phosphatase (38-126) U/L Total Protein (6.3-8.2) g/dL Albumin (3.5-5.0) g/dL Arterial Blood Glucose (75-99) mg/dL Crossmatch 03/02/23 03/03/23 03/03/23 Range/Units 23:58 02:51 04:25 WBC (3.8-10.6) k/uL RBC (3.80-5.40) m/uL Hgb (11.4-16.0) gm/dL Hct (34.0-46.0) % Plt Count (150-450) k/uL Neutrophils # (1.3-7.7) k/uL PT (9.0-12.0) sec INR (<1.2) APTT (22.0-30.0) sec ABG pH (7.35-7.45) ABG pCO2 (35-45) mmHg ABG pO2 (83-108) mmHg ABG HCO3 (21-25) mmol/L ABG Total CO2 (19-24) mmol/L ABG O2 Saturation (94-97) % ABG Hematocrit (34.0-46.0) % ABG Ionized Calcium (4.5-5.3) mg/dL ABG Glucose (75-99) mg/dL Hemoglobin (11.4-16.0) gm/dL Chloride (98-107) mmol/L Glucose (74-99) mg/dL POC Glucose (mg/dL) 124 H 123 H 205 H (70-110) mg/dL Calcium (8.4-10.2) mg/dL Magnesium (1.6-2.3) mg/dL AST (14-36) U/L ALT (4-34) U/L Alkaline Phosphatase (38-126) U/L Total Protein (6.3-8.2) g/dL Albumin (3.5-5.0) g/dL Arterial Blood Glucose (75-99) mg/dL Crossmatch 03/03/23 03/03/23 03/03/23 Range/Units 04:30 05:10 05:58 WBC 14.1 H (3.8-10.6) k/uL RBC 2.95 L (3.80-5.40) m/uL Hgb 8.6 L (11.4-16.0) gm/dL Hct 27.1 L (34.0-46.0) % Plt Count 114 L (150-450) k/uL Neutrophils # 11.2 H (1.3-7.7) k/uL PT (9.0-12.0) sec INR (<1.2) APTT (22.0-30.0) sec ABG pH (7.35-7.45) ABG pCO2 (35-45) mmHg ABG pO2 (83-108) mmHg ABG HCO3 (21-25) mmol/L ABG Total CO2 (19-24) mmol/L ABG O2 Saturation (94-97) % ABG Hematocrit (34.0-46.0) % ABG Ionized Calcium (4.5-5.3) mg/dL ABG Glucose (75-99) mg/dL Hemoglobin (11.4-16.0) gm/dL Chloride (98-107) mmol/L Glucose (74-99) mg/dL POC Glucose (mg/dL) 154 H 23 L (70-110) mg/dL Calcium (8.4-10.2) mg/dL Magnesium (1.6-2.3) mg/dL AST (14-36) U/L ALT (4-34) U/L Alkaline Phosphatase (38-126) U/L Total Protein (6.3-8.2) g/dL Albumin (3.5-5.0) g/dL Arterial Blood Glucose (75-99) mg/dL Crossmatch 03/03/23 03/03/23 Range/Units 06:05 06:22 WBC (3.8-10.6) k/uL RBC (3.80-5.40) m/uL Hgb (11.4-16.0) gm/dL Hct (34.0-46.0) % Plt Count (150-450) k/uL Neutrophils # (1.3-7.7) k/uL PT (9.0-12.0) sec INR (<1.2) APTT (22.0-30.0) sec ABG pH (7.35-7.45) ABG pCO2 34 L (35-45) mmHg ABG pO2 (83-108) mmHg ABG HCO3 (21-25) mmol/L ABG Total CO2 (19-24) mmol/L ABG O2 Saturation 98.7 H (94-97) % ABG Hematocrit (34.0-46.0) % ABG Ionized Calcium (4.5-5.3) mg/dL ABG Glucose (75-99) mg/dL Hemoglobin (11.4-16.0) gm/dL Chloride (98-107) mmol/L Glucose (74-99) mg/dL POC Glucose (mg/dL) 245 H (70-110) mg/dL Calcium (8.4-10.2) mg/dL Magnesium (1.6-2.3) mg/dL AST (14-36) U/L ALT (4-34) U/L Alkaline Phosphatase (38-126) U/L Total Protein (6.3-8.2) g/dL Albumin (3.5-5.0) g/dL Arterial Blood Glucose (75-99) mg/dL Crossmatch Assessment and Plan Assessment: Postop day #1 for an elective coronary artery bypass grafts 2 with a BRITO to LAD and saphenous vein graft to the OM 1, mitral valve repair with a #26 Physio II annuloplasty ring, and left atrial appendage ligation. Acute hypoxemic respiratory failure. Patient remains intubated after the procedure, and is not ready for extubation at this time. vent settings of assist control, respiratory rate 16, tidal volume 360, FiO2 40%, and PEEP of 5. The patient's postoperative ABG showed a pO2 of 159, pCO2 of 33, and pH of 7.47. We did attempt weaning trial on this patient with a pressure support of 8 and a CPAP of 5. Patient was still quite lethargic from sedation and only achieving t idal volumes of 100-200. For this reason, and the fact that the patient's hemodynamic status is marginal at this time, we will hold off on extubating. We will reassess patient's readiness to extubate once more alert and able to cooperate with weaning trial. Coronary artery disease Ischemic cardiomyopathy and left ventricular dysfunction with ejection fraction of 35% Moderate to severe mitral regurgitation Severe persistent asthma requiring multiple hospital admissions in the past. Patient's peak PFT in the office did not demonstrate any significant obstructive picture. Previous tobacco dependence Type 2 diabetes mellitus degenerative disc disease GERD without esophagitis Plan: Patient's medications, labs, and chest x-ray reviewed The patient is not ready to extubate, we will reassess readiness to extubate once more alert and able to cooperate with weaning trial, hopefully later this morning Currently mechanically ventilated on assist-control, respiratory rate 16, tidal volume 360, FiO2 40%, and PEEP of 5 Continue vasopressor support Amiodarone for perioperative atrial fibrillation Start the patient on bronchodilators Repeat chest x-ray in the morning Repeat ABGs in the morning Kefzol for postoperative prophylaxis Oral care every 4 hours GI prophylaxis with Protonix DVT prophylaxis with heparin subcu We will continue to follow I have personally seen and examined the patient, performed the documentation and the assessment and plan as written. Number of minutes spent on the visit:20 Time with Patient: Greater than 30
[2023-03-03] MEDS ORDERED: FUROSEMIDE 10 MG/ML 2 ML VIAL IV STA (07:44)
[2023-03-03] MEDS ORDERED: SODIUM BICARB 8.4% 50 ML SYR (1 MEQ/ML) IV STA (07:46)
[2023-03-03 07:47] LABS: Glucose,Whole Blood 179 mg/dL (70-110)
[2023-03-03] MEDS: MILRINONE-D5W PMX 20 MG in DEXTROSE/WATER 1 100ML.BAG IV SCH ×2 (08:00→17:04)
[2023-03-03] MEDS: ATORVASTATIN 40 MG TAB PO SCH (08:01)
[2023-03-03] MEDS: MULTIVITAMINS, THERA 1 EACH TAB PO SCH (08:01)
[2023-03-03] MEDS: HEPARIN SODIUM,PORCINE/PF 5,000 UNIT/0.5 ML SYRINGE SQ SCH ×3 (08:01→23:27)
[2023-03-03] MEDS: ASCORBIC ACID 500 MG TAB PO SCH (08:01)
[2023-03-03] MEDS: PANTOPRAZOLE 40 MG/10 ML VIAL IVP SCH (08:01)
[2023-03-03] MEDS: CLOPIDOGREL 75 MG TAB PO SCH (08:01)
[2023-03-03] MEDS: ASPIRIN 325 MG TAB PO SCH (08:01)
[2023-03-03] MEDS: ALBUTEROL 90 MCG INHALATION SCH ×5 (08:13→23:38)
[2023-03-03] MEDS: ALBUMIN HUMAN 5% 250 ML in EMPTY BAG 1 BAG IVPB PRN ×4 (08:16→16:54)
[2023-03-03] MEDS: METOPROLOL TARTRATE 12.5 MG TAB PO SCH ×2 (08:20→21:07)
[2023-03-03] MEDS: MUPIROCIN 2% OINT 22 GM TUBE TOPICAL SCH ×2 (08:20→21:16)
[2023-03-03] MEDS: ALBUTEROL NEBULIZED 2.5 MG/3 ML INHALATION SCH ×4 (08:39→20:27)
[2023-03-03 08:58] LABS: Glucose,Whole Blood 154 mg/dL (70-110)
[2023-03-03] MEDS ORDERED: bisacodyL 10 MG SUPP RECTAL PRN (09:00)
[2023-03-03] MEDS ORDERED: MAGNESIUM HYDROXIDE 2,400 MG/10 ML CUP PO PRN (09:00)
[2023-03-03] MEDS: LACTATED RINGERS 1,000 ML IV SCH (09:55)
[2023-03-03] MEDS ORDERED: DEXTROSE/WATER 1 250ML.BAG with DOPamine DRIP 800 MG IV SCH (10:00)
[2023-03-03 10:03] LABS: Glucose,Whole Blood 129 mg/dL (70-110)
[2023-03-03 11:00] LABS: Glucose,Whole Blood 120 mg/dL (70-110)
--- NOTE | 2023-03-03 11:31 | P.PN ---
Subjective Progress Note Date: 03/03/23 Principal diagnosis: Coronary artery disease with left main disease. History of hyperlipidemia, cardiomyopathy with decreased systolic function, moderate eccentric mitral regurgitation, asthma with multiple exacerbations, diabetes mellitus type 2, previous tobacco dependence, GERD, osteoarthritis, covid infection in September 2022. POD #1 coronary artery bypass grafting 2 with left internal thoracic artery to left anterior descending coronary artery, a reverse saphenous vein graft from the aorta to the obtuse marginal coronary artery 1, left atrial appendage ligation with a 35 mm Atriclip, mitral valve repair with a #26 physio-2 annuloplasty ring, endoscopic left greater saphenous vein harvest, graft flow measurements using the Unitask-Stim flow measurement system, insertion of right common femoral arterial line, intraoperative transesophageal echocardiogram. Postoperative acute blood loss anemia, expected given cardiopulmonary bypass and hemodilution The patient was seen and examined in follow-up today 03/03/2023 at her bedside in the intensive care unit. She remains intubated with mechanical ventilator support with current mechanical ventilator settings assist control 16, tidal volume 360, FiO2 40% and PEEP of 5 with oxygen saturations 100% at this time. Blood gases this morning showed a pH of 7.41, pCO2 34, HCO3 21, oxygen saturation 98.7, and base excess -3.3. The patient's sedation has been off since around 4:30 this morning, neurologically the patient is shaking her head yes and no appropriately to questions, moving her feet with verbal commands but not moving her hands with any verbal commands at this time. The patient's nurse states that she does move her upper extremities as she has had periods of agitation. Primacor drip remains infusing at 0.375 mcg/kg/m, current hemodynamic showing a cardiac output of 2.9, cardiac index 1.7, PA pressures 31/17 and CVP 12 mmHg. Mediastinal, right and left pleural chest tubes remain in place to low continuous wall suction -20 cm H2O. No air leak is present. Draining thin serosanguineous drainage. Mediastinal chest tubes drained 110 mL in the last 8 hours and 170 mL since surgery. Right and left pleural chest tubes drained 320 mL in the last 8 hours and 610 mL since surgery. Pardo ca theter remains in place for accurate I's and O's with 250 mL of urine output in the last 8 hours. Amiodarone drip is infusing per protocol at 0.5 mg/m and was discontinued as her underlying heart rhythm is sinus bradycardia with first- degree heart block heart rate of 54. The patient remains DDD paced at this time with a heart rate of 80 BPM. Norepinephrine drip is infusing at 0.03 mcg/kg/m. Chest x-ray was reviewed. Laboratory results this morning show a WBC count 14.1, hemoglobin 8.6, hematocrit 27.1, platelets 114, sodium 142, potassium 3.9, CO2 14, BUN 9, creatinine 0.82, glucose 197, calcium 7.4, ionized calcium 4.7, AST 175 and ALT 96. Objective - Vital Signs Vital signs: Vital Signs Temp 98.4 F 03/03/23 00:00 Pulse 80 03/03/23 07:00 Resp 21 03/03/23 07:00 BP 99/38 03/03/23 05:30 Pulse Ox 100 03/03/23 07:00 FiO2 40 03/03/23 04:23 Intake & Output 03/02/23 03/03/23 03/03/23 18:59 06:59 18:59 Intake Total 6050.380 9707.273 79 Output Total 1339 880 50 Balance -279.834 487.273 29 Weight 85.5 kg Intake: IV 999 1058 79 ACETAMINOPHEN IV (For NPO 100 100 ) 1,000 mg In Empty Bag 1 bag @ 400 mls/hr IVPB Q6HR [facility] Rx#:[id number] Albumin Human 5% 250 ml 500 In Empty Bag 1 bag @ 250 mls/hr IVPB Q1HR PRN Rx#: [id number] CO/CI 80 200 20 Lactated Ringers 1,000 ml 180 600 50 @ 50 mls/hr IV .Q20H [facility] Rx#:[id number] ceFAZolin 2 gm In Sodium 50 50 Chloride 0.9% 50 ml @ 100 mls/hr IVPB ONCE ONE Rx# :[id number] pressure bags 36 108 9 Intake, IV Titration 60.166 309.273 Amount Dexmedetomidine/0.9% NaCl 2.903 (Pmx) 400 mcg In Empty Bag 1 bag @ Titrate IV . Q0M [facility] Rx#:[id number] Insulin Regular 100 unit 5.168 48.371 In Sodium Chloride 0.9% 100 ml @ Per Protocol IV .Q0M [facility] Rx#:[id number] Milrinone-D5w Pmx 20 mg 51.522 In Dextrose/Water 1 100ml .bag @ 0.375 MCG/KG/MIN 8 .708 mls/hr IV .[id number] [facility] Rx#:[id number] Norepinephrine 4 mg In 45.710 206.477 Sodium Chloride 0.9% 250 ml @ 0.03 MCG/KG/MIN 8. 847 mls/hr IV .Q24H [facility] Rx#:[id number] propofoL 1,000 mg In 9.288 Empty Bag 1 bag @ Titrate IV .Q0M [facility] Rx#: [id number] Output: Chest Tube Drainage 254 530 20 Chest Tube Mediastinal 42 130 0 Right/Left Chest Tube 212 400 20 Urine 1040 350 30 Estimated Blood Loss 45 Other: Voiding Method Indwelling Catheter Indwelling Catheter ABP, PAP, CO, CI - Last Documented Arterial Blood Pressure 118/49 Pulmonary Artery Pressure 33/18 Cardiac Output 3.3 Cardiac Index 1.9 - Exam CONSTITUTIONAL: Lying in bed in the intensive care unit, remained intubated with mechanical ventilator support, appears comfortable, cooperative. HEENT: Neck is supple, no JVD, no lymphadenopathy. Right IJ Cordis and Chatsworth- Clark catheter in place and functioning. RESPIRATORY: Lungs sounds essentially clear throughout, diminished to his bilateral bases. Respirations are symmetrical and nonlabored with mechanical ventilator support. Currently on assist control 16, TV 360, FiO2 40% and a PEEP of 5 with oxygen saturations 100%. Strong cough. CARDIOVASCULAR: Regular rhythm and rate. S1 and S2 present, negative for S3, gallop or murmur. Sternum is stable. Palpable peripheral pulses bilaterally, no edema to his bilateral lower extremities. No calf pain or tenderness noted. Heart hugger in place. Knee-high SHUKRI hose and sequential compression devices in place to his bilateral lower extremities. GASTROINTESTINAL: Abdomen soft, nontender, nondistended. Hypoactive bowel sounds present 4 quadrants. OG tube in place to low intermittent wall suction. No guarding or rigidity. GENITOURINARY: Pardo present draining clear, yellow urine. Urine output 250 mL in the last 8 hours INTEGUMENTARY: Skin is warm and dry with no evidence of clubbing or cyanosis. Midline sternal incision clean dry and well approximated, covered with dry intact dressing. Left lower extremity EVH sites well approximated without redness or drainage. NEUROLOGIC: Unable to fully assess at this time as the patient remained intubated with mechanical ventilator support. Patient does follow some verbal commands, moves both feet with verbal stimuli. MUSKULOSKELETAL: Able to move all extremities. PSYCHIATRIC: Unable to fully assess at this time as the patient remains intubated with mechanical ventilator support. INVASIVE LINES AND TUBES: Mediastinal/left and right pleural chest tubes present and connected to low continuous wall suction, no air leaks present. Mediastinal tube with 110 mL of thin serosanguineous drainage overnight, 170 mL output in the last 24 hours. Left and right pleural chest tube with 320 mL of thin serosanguineous drainage overnight, 610 mL output in the last 24 hours. Atrial and ventricular epicardial pacemaker wires present, connected to gene rator, DDD rate 80 bpm. Right internal jugular Chatsworth/Cordis, right radial arterial line present. Last CO 2.9, CI 1.7, PA 31/17 and CVP 12 mmHg. - Labs CBC & Chem 7: 03/03/23 04:30 03/03/23 04:30 Labs: Abnormal Lab Results - Last 24 Hours (Table) 03/01/23 03/02/23 03/02/23 Range/Units 08:15 11:01 14:39 WBC (3.8-10.6) k/uL RBC (3.80-5.40) m/uL Hgb (11.4-16.0) gm/dL Hct (34.0-46.0) % Plt Count (150-450) k/uL Neutrophils # (1.3-7.7) k/uL PT (9.0-12.0) sec INR (<1.2) APTT (22.0-30.0) sec ABG pH 7.53 H (7.35-7.45) ABG pCO2 31 L (35-45) mmHg ABG pO2 >420 H (83-108) mmHg ABG HCO3 26 H (21-25) mmol/L ABG Total CO2 27 H (19-24) mmol/L ABG O2 Saturation 100.0 H (94-97) % ABG Hematocrit 23 L (34.0-46.0) % ABG Ionized Calcium 4.2 L (4.5-5.3) mg/dL ABG Glucose 101 H (75-99) mg/dL Hemoglobin 7.6 L (11.4-16.0) gm/dL Chloride (98-107) mmol/L Carbon Dioxide (22-30) mmol/L Glucose (74-99) mg/dL POC Glucose (mg/dL) 137 H (70-110) mg/dL Calcium (8.4-10.2) mg/dL Magnesium (1.6-2.3) mg/dL AST (14-36) U/L ALT (4-34) U/L Alkaline Phosphatase (38-126) U/L Total Protein (6.3-8.2) g/dL Albumin (3.5-5.0) g/dL Arterial Blood Glucose 101 H (75-99) mg/dL Crossmatch See Detail 03/02/23 03/02/23 03/02/23 Range/Units 14:53 14:53 14:53 WBC 13.7 H (3.8-10.6) k/uL RBC 2.87 L (3.80-5.40) m/uL Hgb 8.3 L D (11.4-16.0) gm/dL Hct 25.7 L (34.0-46.0) % Plt Count 108 L (150-450) k/uL Neutrophils # 9.6 H (1.3-7.7) k/uL PT 13.6 H (9.0-12.0) sec INR 1.3 H (<1.2) APTT 33.4 H (22.0-30.0) sec ABG pH (7.35-7.45) ABG pCO2 (35-45) mmHg ABG pO2 (83-108) mmHg ABG HCO3 (21-25) mmol/L ABG Total CO2 (19-24) mmol/L ABG O2 Saturation (94-97) % ABG Hematocrit (34.0-46.0) % ABG Ionized Calcium (4.5-5.3) mg/dL ABG Glucose (75-99) mg/dL Hemoglobin (11.4-16.0) gm/dL Chloride 110 H (98-107) mmol/L Carbon Dioxide (22-30) mmol/L Glucose 129 H (74-99) mg/dL POC Glucose (mg/dL) (70-110) mg/dL Calcium 7.1 L (8.4-10.2) mg/dL Magnesium 3.5 H (1.6-2.3) mg/dL AST 79 H (14-36) U/L ALT 37 H (4-34) U/L Alkaline Phosphatase <20 L (38-126) U/L Total Protein 4.6 L (6.3-8.2) g/dL Albumin 3.2 L (3.5-5.0) g/dL Arterial Blood Glucose (75-99) mg/dL Crossmatch 03/02/23 03/02/23 03/02/23 Range/Units 15:16 16:03 17:18 WBC (3.8-10.6) k/uL RBC (3.80-5.40) m/uL Hgb (11.4-16.0) gm/dL Hct (34.0-46.0) % Plt Count (150-450) k/uL Neutrophils # (1.3-7.7) k/uL PT (9.0-12.0) sec INR (<1.2) APTT (22.0-30.0) sec ABG pH 7.29 L (7.35-7.45) ABG pCO2 49 H (35-45) mmHg ABG pO2 301 H (83-108) mmHg ABG HCO3 (21-25) mmol/L ABG Total CO2 25 H (19-24) mmol/L ABG O2 Saturation 100.0 H (94-97) % ABG Hematocrit (34.0-46.0) % ABG Ionized Calcium (4.5-5.3) mg/dL ABG Glucose (75-99) mg/dL Hemoglobin (11.4-16.0) gm/dL Chloride (98-107) mmol/L Carbon Dioxide (22-30) mmol/L Glucose (74-99) mg/dL POC Glucose (mg/dL) 163 H 161 H (70-110) mg/dL Calcium (8.4-10.2) mg/dL Magnesium (1.6-2.3) mg/dL AST (14-36) U/L ALT (4-34) U/L Alkaline Phosphatase (38-126) U/L Total Protein (6.3-8.2) g/dL Albumin (3.5-5.0) g/dL Arterial Blood Glucose (75-99) mg/dL Crossmatch 03/02/23 03/02/23 03/02/23 Range/Units 18:04 19:01 19:12 WBC (3.8-10.6) k/uL RBC (3.80-5.40) m/uL Hgb (11.4-16.0) gm/dL Hct (34.0-46.0) % Plt Count (150-450) k/uL Neutrophils # (1.3-7.7) k/uL PT (9.0-12.0) sec INR (<1.2) APTT (22.0-30.0) sec ABG pH 7.47 H (7.35-7.45) ABG pCO2 33 L (35-45) mmHg ABG pO2 159 H (83-108) mmHg ABG HCO3 (21-25) mmol/L ABG Total CO2 25 H (19-24) mmol/L ABG O2 Saturation 100.0 H (94-97) % ABG Hematocrit (34.0-46.0) % ABG Ionized Calcium (4.5-5.3) mg/dL ABG Glucose (75-99) mg/dL Hemoglobin (11.4-16.0) gm/dL Chloride (98-107) mmol/L Carbon Dioxide (22-30) mmol/L Glucose (74-99) mg/dL POC Glucose (mg/dL) 156 H 151 H (70-110) mg/dL Calcium (8.4-10.2) mg/dL Magnesium (1.6-2.3) mg/dL AST (14-36) U/L ALT (4-34) U/L Alkaline Phosphatase (38-126) U/L Total Protein (6.3-8.2) g/dL Albumin (3.5-5.0) g/dL Arterial Blood Glucose (75-99) mg/dL Crossmatch 03/02/23 03/02/23 03/02/23 Range/Units 19:19 20:01 21:05 WBC (3.8-10.6) k/uL RBC 2.66 L (3.80-5.40) m/uL Hgb 7.9 L (11.4-16.0) gm/dL Hct 23.6 L (34.0-46.0) % Plt Count 104 L (150-450) k/uL Neutrophils # (1.3-7.7) k/uL PT (9.0-12.0) sec INR (<1.2) APTT (22.0-30.0) sec ABG pH (7.35-7.45) ABG pCO2 (35-45) mmHg ABG pO2 (83-108) mmHg ABG HCO3 (21-25) mmol/L ABG Total CO2 (19-24) mmol/L ABG O2 Saturation (94-97) % ABG Hematocrit (34.0-46.0) % ABG Ionized Calcium (4.5-5.3) mg/dL ABG Glucose (75-99) mg/dL Hemoglobin (11.4-16.0) gm/dL Chloride (98-107) mmol/L Carbon Dioxide (22-30) mmol/L Glucose (74-99) mg/dL POC Glucose (mg/dL) 149 H 145 H (70-110) mg/dL Calcium (8.4-10.2) mg/dL Magnesium (1.6-2.3) mg/dL AST (14-36) U/L ALT (4-34) U/L Alkaline Phosphatase (38-126) U/L Total Protein (6.3-8.2) g/dL Albumin (3.5-5.0) g/dL Arterial Blood Glucose (75-99) mg/dL Crossmatch 03/02/23 03/02/23 03/02/23 Range/Units 21:05 21:51 22:44 WBC (3.8-10.6) k/uL RBC 2.70 L (3.80-5.40) m/uL Hgb 8.0 L (11.4-16.0) gm/dL Hct 24.0 L (34.0-46.0) % Plt Count 100 L (150-450) k/uL Neutrophils # 8.0 H (1.3-7.7) k/uL PT (9.0-12.0) sec INR (<1.2) APTT (22.0-30.0) sec ABG pH (7.35-7.45) ABG pCO2 (35-45) mmHg ABG pO2 (83-108) mmHg ABG HCO3 (21-25) mmol/L ABG Total CO2 (19-24) mmol/L ABG O2 Saturation (94-97) % ABG Hematocrit (34.0-46.0) % ABG Ionized Calcium (4.5-5.3) mg/dL ABG Glucose (75-99) mg/dL Hemoglobin (11.4-16.0) gm/dL Chloride (98-107) mmol/L Carbon Dioxide (22-30) mmol/L Glucose (74-99) mg/dL POC Glucose (mg/dL) 139 H 131 H (70-110) mg/dL Calcium (8.4-10.2) mg/dL Magnesium (1.6-2.3) mg/dL AST (14-36) U/L ALT (4-34) U/L Alkaline Phosphatase (38-126) U/L Total Protein (6.3-8.2) g/dL Albumin (3.5-5.0) g/dL Arterial Blood Glucose (75-99) mg/dL Crossmatch 03/02/23 03/03/23 03/03/23 Range/Units 23:58 02:51 04:25 WBC (3.8-10.6) k/uL RBC (3.80-5.40) m/uL Hgb (11.4-16.0) gm/dL Hct (34.0-46.0) % Plt Count (150-450) k/uL Neutrophils # (1.3-7.7) k/uL PT (9.0-12.0) sec INR (<1.2) APTT (22.0-30.0) sec ABG pH (7.35-7.45) ABG pCO2 (35-45) mmHg ABG pO2 (83-108) mmHg ABG HCO3 (21-25) mmol/L ABG Total CO2 (19-24) mmol/L ABG O2 Saturation (94-97) % ABG Hematocrit (34.0-46.0) % ABG Ionized Calcium (4.5-5.3) mg/dL ABG Glucose (75-99) mg/dL Hemoglobin (11.4-16.0) gm/dL Chloride (98-107) mmol/L Carbon Dioxide (22-30) mmol/L Glucose (74-99) mg/dL POC Glucose (mg/dL) 124 H 123 H 205 H (70-110) mg/dL Calcium (8.4-10.2) mg/dL Magnesium (1.6-2.3) mg/dL AST (14-36) U/L ALT (4-34) U/L Alkaline Phosphatase (38-126) U/L Total Protein (6.3-8.2) g/dL Albumin (3.5-5.0) g/dL Arterial Blood Glucose (75-99) mg/dL Crossmatch 03/03/23 03/03/23 03/03/23 Range/Units 04:30 04:30 05:10 WBC 14.1 H (3.8-10.6) k/uL RBC 2.95 L (3.80-5.40) m/uL Hgb 8.6 L (11.4-16.0) gm/dL Hct 27.1 L (34.0-46.0) % Plt Count 114 L (150-450) k/uL Neutrophils # 11.2 H (1.3-7.7) k/uL PT (9.0-12.0) sec INR (<1.2) APTT (22.0-30.0) sec ABG pH (7.35-7.45) ABG pCO2 (35-45) mmHg ABG pO2 (83-108) mmHg ABG HCO3 (21-25) mmol/L ABG Total CO2 (19-24) mmol/L ABG O2 Saturation (94-97) % ABG Hematocrit (34.0-46.0) % ABG Ionized Calcium (4.5-5.3) mg/dL ABG Glucose (75-99) mg/dL Hemoglobin (11.4-16.0) gm/dL Chloride 110 H (98-107) mmol/L Carbon Dioxide 14 L (22-30) mmol/L Glucose 197 H (74-99) mg/dL POC Glucose (mg/dL) 154 H (70-110) mg/dL Calcium 7.4 L (8.4-10.2) mg/dL Magnesium 2.9 H (1.6-2.3) mg/dL AST 175 H (14-36) U/L ALT 96 H (4-34) U/L Alkaline Phosphatase <20 L (38-126) U/L Total Protein 4.7 L (6.3-8.2) g/dL Albumin 3.2 L (3.5-5.0) g/dL Arterial Blood Glucose (75-99) mg/dL Crossmatch 03/03/23 03/03/23 03/03/23 Range/Units 05:58 06:05 06:22 WBC (3.8-10.6) k/uL RBC (3.80-5.40) m/uL Hgb (11.4-16.0) gm/dL Hct (34.0-46.0) % Plt Count (150-450) k/uL Neutrophils # (1.3-7.7) k/uL PT (9.0-12.0) sec INR (<1.2) APTT (22.0-30.0) sec ABG pH (7.35-7.45) ABG pCO2 34 L (35-45) mmHg ABG pO2 (83-108) mmHg ABG HCO3 (21-25) mmol/L ABG Total CO2 (19-24) mmol/L ABG O2 Saturation 98.7 H (94-97) % ABG Hematocrit (34.0-46.0) % ABG Ionized Calcium (4.5-5.3) mg/dL ABG Glucose (75-99) mg/dL Hemoglobin (11.4-16.0) gm/dL Chloride (98-107) mmol/L Carbon Dioxide (22-30) mmol/L Glucose (74-99) mg/dL POC Glucose (mg/dL) 23 L 245 H (70-110) mg/dL Calcium (8.4-10.2) mg/dL Magnesium (1.6-2.3) mg/dL AST (14-36) U/L ALT (4-34) U/L Alkaline Phosphatase (38-126) U/L Total Protein (6.3-8.2) g/dL Albumin (3.5-5.0) g/dL Arterial Blood Glucose (75-99) mg/dL Crossmatch 03/03/23 03/03/23 Range/Units 06:52 07:45 WBC (3.8-10.6) k/uL RBC (3.80-5.40) m/uL Hgb (11.4-16.0) gm/dL Hct (34.0-46.0) % Plt Count (150-450) k/uL Neutrophils # (1.3-7.7) k/uL PT (9.0-12.0) sec INR (<1.2) APTT (22.0-30.0) sec ABG pH (7.35-7.45) ABG pCO2 (35-45) mmHg ABG pO2 (83-108) mmHg ABG HCO3 (21-25) mmol/L ABG Total CO2 (19-24) mmol/L ABG O2 Saturation (94-97) % ABG Hematocrit (34.0-46.0) % ABG Ionized Calcium (4.5-5.3) mg/dL ABG Glucose (75-99) mg/dL Hemoglobin (11.4-16.0) gm/dL Chloride (98-107) mmol/L Carbon Dioxide (22-30) mmol/L Glucose (74-99) mg/dL POC Glucose (mg/dL) 205 H 179 H (70-110) mg/dL Calcium (8.4-10.2) mg/dL Magnesium (1.6-2.3) mg/dL AST (14-36) U/L ALT (4-34) U/L Alkaline Phosphatase (38-126) U/L Total Protein (6.3-8.2) g/dL Albumin (3.5-5.0) g/dL Arterial Blood Glucose (75-99) mg/dL Crossmatch Assessment and Plan Assessment: Left main coronary artery disease, status post coronary artery bypass grafting 2 vessels Severe mitral valve regurgitation, status post mitral valve repair with a #26 physio-2 annuloplasty ring Severe restrictive lung disease with asthma on chronic steroids, preoperative FEV1 42% of predicted value Cardiomyopathy/chronic systolic heart failure with decreased systolic function, ejection fraction 35% on MARY 02/28/2023 History of hypertension Hyperlipidemia Diabetes mellitus type 2, with a preoperative hemoglobin A1c 6.9% Previous history of tobacco dependence GERD Osteoarthritis COVID-19 infection in September 2022 Postoperative acute blood loss anemia, expected given hemodilution and cardiopulmonary bypass Hypotension requiring norepinephrine drip Plan: Continue to maximize medical therapy with aspirin, statin, Plavix, and beta analisa with hold parameters. Will increase beta analisa as tolerated. Wean norepinephrine drip as tolerated to keep a map of 70 mmHg or greater. Mechanical ventilator management per pulmonology for/critical care recommendations. Once extubated encourage incentive spirometry 10 times every hour while awake. Bronchodilators per pulmonology. Will monitor daily labs and chest x-rays. Electrolyte replacement per protocol. GI/DVT prophylaxis. Pain control with current medication regimen. Once the patient is extubated increase activity, ambulate as tolerated, PT/OT/cardiac rehab consulted. Insulin management per internal medicine service. Patient is diabetic with hemoglobin A1c 6.9%. Continue mediastinal/left/right pleural chest tubes for another 24 hours. Continue Pardo catheter for another 24 hours for strict accurate intake and output.. Daily weights Keep right IJ Chatsworth-Clark catheter, continue to monitor hemodynamics. Keep Primacor drip infusing at 0.375 mcg/kg/m Discontinue amiodarone drip. Keep atrial and ventricular epicardial pacemaker wires in place and connected to back up his maker generator on a DDD of 80 BPM. More recommendations to follow based on patient's clinical course. Time with Patient: Greater than 30
[2023-03-03 11:57] LABS: Glucose,Whole Blood 122 mg/dL (70-110)
--- NOTE | 2023-03-03 12:02 | P.PN ---
Subjective Progress Note Date: 03/03/23 Principal diagnosis: Multiple vessel coronary artery disease requiring CABG SUBJECTIVE : Patient seen and evaluated, intubated, off sedation moving extremities REVIEW OF SYSTEMS: Unable to complete question intubated PHYSICAL EXAMINATION: Vitals reviewed, chest tube and lines reviewed GENERAL: Intubated HEENT: Pupils are round and equally reacting to light. CARDIOVASCULAR: S1 and S2 present. No murmurs, rubs, or gallops. PULMONARY: Intubated on ventilator. ABDOMEN: Soft, nontender, nondistended, normoactive bowel sounds. No palpable organomegaly. MUSCULOSKELETAL: No joint swelling or deformity. EXTREMITIES: No cyanosis, clubbing, or pedal edema. NEUROLOGICAL: Gross neurological examination did not reveal any focal deficits. SKIN: No rashes. 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 Ischemic cardiomyopathy and LV dysfunction with ejection fraction of 35-40% based on transthoracic echo from 09/2022 mitral regurgitation Postoperative anemia Severe persistent asthma Type 2 diabetes Degenerative disc disease GERD without esophagitis Plan * For coronary artery disease and cardiomyopathy patient seen by cardiology as well as cardiac surgery> status post CABG managed by ICU team * Internal medicine team will follow along postoperatively patient in ICU POST CABG * Labs reviewed Objective - Vital Signs Vital signs: Vital Signs Temp 98.4 F 03/03/23 00:00 Pulse 81 03/03/23 11:00 Resp 24 03/03/23 11:00 BP 168/68 03/03/23 11:00 Pulse Ox 98 03/03/23 11:00 FiO2 40 03/03/23 08:14 Intake & Output 03/02/23 03/03/23 03/03/23 18:59 06:59 18:59 Intake Total 0378.952 3357.273 1060.133 Output Total 1339 880 272 Balance -279.834 487.273 788.133 Weight 85.5 kg 85.5 kg Intake: IV 999 1058 925 ACETAMINOPHEN IV (For NPO 100 100 ) 1,000 mg In Empty Bag 1 bag @ 400 mls/hr IVPB Q6HR [facility] Rx#:[id number] Albumin Human 5% 250 ml 500 500 In Empty Bag 1 bag @ 250 mls/hr IVPB Q1HR PRN Rx#: [id number] CO/CI 80 200 140 Lactated Ringers 1,000 ml 180 600 190 @ 50 mls/hr IV .Q20H [facility] Rx#:[id number] ceFAZolin 2 gm In Sodium 50 50 50 Chloride 0.9% 50 ml @ 100 mls/hr IVPB ONCE ONE Rx# :[id number] pressure bags 36 108 45 Intake, IV Titration 60.166 309.273 135.133 Amount Dexmedetomidine/0.9% NaCl 2.903 (Pmx) 400 mcg In Empty Bag 1 bag @ Titrate IV . Q0M [facility] Rx#:[id number] Insulin Regular 100 unit 5.168 48.371 14.081 In Sodium Chloride 0.9% 100 ml @ Per Protocol IV .Q0M [facility] Rx#:[id number] Milrinone-D5w Pmx 20 mg 51.522 89.547 In Dextrose/Water 1 100ml .bag @ 0.375 MCG/KG/MIN 8 .708 mls/hr IV .[id number] [facility] Rx#:[id number] Norepinephrine 4 mg In 45.710 206.477 31.505 Sodium Chloride 0.9% 250 ml @ 0.03 MCG/KG/MIN 8. 847 mls/hr IV .Q24H [facility] Rx#:[id number] propofoL 1,000 mg In 9.288 Empty Bag 1 bag @ Titrate IV .Q0M [facility] Rx#: [id number] Output: Chest Tube Drainage 254 530 134 Chest Tube Mediastinal 42 130 24 Right/Left Chest Tube 212 400 110 Urine 1040 350 138 Estimated Blood Loss 45 Other: Voiding Method Indwelling Catheter Indwelling Catheter Indwelling Catheter ABP, PAP, CO, CI - Last Documented Arterial Blood Pressure 178/47 Pulmonary Artery Pressure 40/20 Cardiac Output 4.2 Cardiac Index 2.4 - Labs CBC & Chem 7: 03/03/23 04:30 03/03/23 04:30 Labs: Abnormal Lab Results - Last 24 Hours (Table) 03/01/23 03/02/23 03/02/23 Range/Units 08:15 11:01 14:39 WBC (3.8-10.6) k/uL RBC (3.80-5.40) m/uL Hgb (11.4-16.0) gm/dL Hct (34.0-46.0) % Plt Count (150-450) k/uL Neutrophils # (1.3-7.7) k/uL PT (9.0-12.0) sec INR (<1.2) APTT (22.0-30.0) sec ABG pH 7.53 H (7.35-7.45) ABG pCO2 31 L (35-45) mmHg ABG pO2 >420 H (83-108) mmHg ABG HCO3 26 H (21-25) mmol/L ABG Total CO2 27 H (19-24) mmol/L ABG O2 Saturation 100.0 H (94-97) % ABG Hematocrit 23 L (34.0-46.0) % ABG Ionized Calcium 4.2 L (4.5-5.3) mg/dL ABG Glucose 101 H (75-99) mg/dL Hemoglobin 7.6 L (11.4-16.0) gm/dL Chloride (98-107) mmol/L Carbon Dioxide (22-30) mmol/L Glucose (74-99) mg/dL POC Glucose (mg/dL) 137 H (70-110) mg/dL Calcium (8.4-10.2) mg/dL Magnesium (1.6-2.3) mg/dL AST (14-36) U/L ALT (4-34) U/L Alkaline Phosphatase (38-126) U/L Total Protein (6.3-8.2) g/dL Albumin (3.5-5.0) g/dL Arterial Blood Glucose 101 H (75-99) mg/dL Crossmatch See Detail 03/02/23 03/02/23 03/02/23 Range/Units 14:53 14:53 14:53 WBC 13.7 H (3.8-10.6) k/uL RBC 2.87 L (3.80-5.40) m/uL Hgb 8.3 L D (11.4-16.0) gm/dL Hct 25.7 L (34.0-46.0) % Plt Count 108 L (150-450) k/uL Neutrophils # 9.6 H (1.3-7.7) k/uL PT 13.6 H (9.0-12.0) sec INR 1.3 H (<1.2) APTT 33.4 H (22.0-30.0) sec ABG pH (7.35-7.45) ABG pCO2 (35-45) mmHg ABG pO2 (83-108) mmHg ABG HCO3 (21-25) mmol/L ABG Total CO2 (19-24) mmol/L ABG O2 Saturation (94-97) % ABG Hematocrit (34.0-46.0) % ABG Ionized Calcium (4.5-5.3) mg/dL ABG Glucose (75-99) mg/dL Hemoglobin (11.4-16.0) gm/dL Chloride 110 H (98-107) mmol/L Carbon Dioxide (22-30) mmol/L Glucose 129 H (74-99) mg/dL POC Glucose (mg/dL) (70-110) mg/dL Calcium 7.1 L (8.4-10.2) mg/dL Magnesium 3.5 H (1.6-2.3) mg/dL AST 79 H (14-36) U/L ALT 37 H (4-34) U/L Alkaline Phosphatase <20 L (38-126) U/L Total Protein 4.6 L (6.3-8.2) g/dL Albumin 3.2 L (3.5-5.0) g/dL Arterial Blood Glucose (75-99) mg/dL Crossmatch 03/02/23 03/02/23 03/02/23 Range/Units 15:16 16:03 17:18 WBC (3.8-10.6) k/uL RBC (3.80-5.40) m/uL Hgb (11.4-16.0) gm/dL Hct (34.0-46.0) % Plt Count (150-450) k/uL Neutrophils # (1.3-7.7) k/uL PT (9.0-12.0) sec INR (<1.2) APTT (22.0-30.0) sec ABG pH 7.29 L (7.35-7.45) ABG pCO2 49 H (35-45) mmHg ABG pO2 301 H (83-108) mmHg ABG HCO3 (21-25) mmol/L ABG Total CO2 25 H (19-24) mmol/L ABG O2 Saturation 100.0 H (94-97) % ABG Hematocrit (34.0-46.0) % ABG Ionized Calcium (4.5-5.3) mg/dL ABG Glucose (75-99) mg/dL Hemoglobin (11.4-16.0) gm/dL Chloride (98-107) mmol/L Carbon Dioxide (22-30) mmol/L Glucose (74-99) mg/dL POC Glucose (mg/dL) 163 H 161 H (70-110) mg/dL Calcium (8.4-10.2) mg/dL Magnesium (1.6-2.3) mg/dL AST (14-36) U/L ALT (4-34) U/L Alkaline Phosphatase (38-126) U/L Total Protein (6.3-8.2) g/dL Albumin (3.5-5.0) g/dL Arterial Blood Glucose (75-99) mg/dL Crossmatch 03/02/23 03/02/23 03/02/23 Range/Units 18:04 19:01 19:12 WBC (3.8-10.6) k/uL RBC (3.80-5.40) m/uL Hgb (11.4-16.0) gm/dL Hct (34.0-46.0) % Plt Count (150-450) k/uL Neutrophils # (1.3-7.7) k/uL PT (9.0-12.0) sec INR (<1.2) APTT (22.0-30.0) sec ABG pH 7.47 H (7.35-7.45) ABG pCO2 33 L (35-45) mmHg ABG pO2 159 H (83-108) mmHg ABG HCO3 (21-25) mmol/L ABG Total CO2 25 H (19-24) mmol/L ABG O2 Saturation 100.0 H (94-97) % ABG Hematocrit (34.0-46.0) % ABG Ionized Calcium (4.5-5.3) mg/dL ABG Glucose (75-99) mg/dL Hemoglobin (11.4-16.0) gm/dL Chloride (98-107) mmol/L Carbon Dioxide (22-30) mmol/L Glucose (74-99) mg/dL POC Glucose (mg/dL) 156 H 151 H (70-110) mg/dL Calcium (8.4-10.2) mg/dL Magnesium (1.6-2.3) mg/dL AST (14-36) U/L ALT (4-34) U/L Alkaline Phosphatase (38-126) U/L Total Protein (6.3-8.2) g/dL Albumin (3.5-5.0) g/dL Arterial Blood Glucose (75-99) mg/dL Crossmatch 03/02/23 03/02/23 03/02/23 Range/Units 19:19 20:01 21:05 WBC (3.8-10.6) k/uL RBC 2.66 L (3.80-5.40) m/uL Hgb 7.9 L (11.4-16.0) gm/dL Hct 23.6 L (34.0-46.0) % Plt Count 104 L (150-450) k/uL Neutrophils # (1.3-7.7) k/uL PT (9.0-12.0) sec INR (<1.2) APTT (22.0-30.0) sec ABG pH (7.35-7.45) ABG pCO2 (35-45) mmHg ABG pO2 (83-108) mmHg ABG HCO3 (21-25) mmol/L ABG Total CO2 (19-24) mmol/L ABG O2 Saturation (94-97) % ABG Hematocrit (34.0-46.0) % ABG Ionized Calcium (4.5-5.3) mg/dL ABG Glucose (75-99) mg/dL Hemoglobin (11.4-16.0) gm/dL Chloride (98-107) mmol/L Carbon Dioxide (22-30) mmol/L Glucose (74-99) mg/dL POC Glucose (mg/dL) 149 H 145 H (70-110) mg/dL Calcium (8.4-10.2) mg/dL Magnesium (1.6-2.3) mg/dL AST (14-36) U/L ALT (4-34) U/L Alkaline Phosphatase (38-126) U/L Total Protein (6.3-8.2) g/dL Albumin (3.5-5.0) g/dL Arterial Blood Glucose (75-99) mg/dL Crossmatch 03/02/23 03/02/23 03/02/23 Range/Units 21:05 21:51 22:44 WBC (3.8-10.6) k/uL RBC 2.70 L (3.80-5.40) m/uL Hgb 8.0 L (11.4-16.0) gm/dL Hct 24.0 L (34.0-46.0) % Plt Count 100 L (150-450) k/uL Neutrophils # 8.0 H (1.3-7.7) k/uL PT (9.0-12.0) sec INR (<1.2) APTT (22.0-30.0) sec ABG pH (7.35-7.45) ABG pCO2 (35-45) mmHg ABG pO2 (83-108) mmHg ABG HCO3 (21-25) mmol/L ABG Total CO2 (19-24) mmol/L ABG O2 Saturation (94-97) % ABG Hematocrit (34.0-46.0) % ABG Ionized Calcium (4.5-5.3) mg/dL ABG Glucose (75-99) mg/dL Hemoglobin (11.4-16.0) gm/dL Chloride (98-107) mmol/L Carbon Dioxide (22-30) mmol/L Glucose (74-99) mg/dL POC Glucose (mg/dL) 139 H 131 H (70-110) mg/dL Calcium (8.4-10.2) mg/dL Magnesium (1.6-2.3) mg/dL AST (14-36) U/L ALT (4-34) U/L Alkaline Phosphatase (38-126) U/L Total Protein (6.3-8.2) g/dL Albumin (3.5-5.0) g/dL Arterial Blood Glucose (75-99) mg/dL Crossmatch 03/02/23 03/03/23 03/03/23 Range/Units 23:58 02:51 04:25 WBC (3.8-10.6) k/uL RBC (3.80-5.40) m/uL Hgb (11.4-16.0) gm/dL Hct (34.0-46.0) % Plt Count (150-450) k/uL Neutrophils # (1.3-7.7) k/uL PT (9.0-12.0) sec INR (<1.2) APTT (22.0-30.0) sec ABG pH (7.35-7.45) ABG pCO2 (35-45) mmHg ABG pO2 (83-108) mmHg ABG HCO3 (21-25) mmol/L ABG Total CO2 (19-24) mmol/L ABG O2 Saturation (94-97) % ABG Hematocrit (34.0-46.0) % ABG Ionized Calcium (4.5-5.3) mg/dL ABG Glucose (75-99) mg/dL Hemoglobin (11.4-16.0) gm/dL Chloride (98-107) mmol/L Carbon Dioxide (22-30) mmol/L Glucose (74-99) mg/dL POC Glucose (mg/dL) 124 H 123 H 205 H (70-110) mg/dL Calcium (8.4-10.2) mg/dL Magnesium (1.6-2.3) mg/dL AST (14-36) U/L ALT (4-34) U/L Alkaline Phosphatase (38-126) U/L Total Protein (6.3-8.2) g/dL Albumin (3.5-5.0) g/dL Arterial Blood Glucose (75-99) mg/dL Crossmatch 03/03/23 03/03/23 03/03/23 Range/Units 04:30 04:30 05:10 WBC 14.1 H (3.8-10.6) k/uL RBC 2.95 L (3.80-5.40) m/uL Hgb 8.6 L (11.4-16.0) gm/dL Hct 27.1 L (34.0-46.0) % Plt Count 114 L (150-450) k/uL Neutrophils # 11.2 H (1.3-7.7) k/uL PT (9.0-12.0) sec INR (<1.2) APTT (22.0-30.0) sec ABG pH (7.35-7.45) ABG pCO2 (35-45) mmHg ABG pO2 (83-108) mmHg ABG HCO3 (21-25) mmol/L ABG Total CO2 (19-24) mmol/L ABG O2 Saturation (94-97) % ABG Hematocrit (34.0-46.0) % ABG Ionized Calcium (4.5-5.3) mg/dL ABG Glucose (75-99) mg/dL Hemoglobin (11.4-16.0) gm/dL Chloride 110 H (98-107) mmol/L Carbon Dioxide 14 L (22-30) mmol/L Glucose 197 H (74-99) mg/dL POC Glucose (mg/dL) 154 H (70-110) mg/dL Calcium 7.4 L (8.4-10.2) mg/dL Magnesium 2.9 H (1.6-2.3) mg/dL AST 175 H (14-36) U/L ALT 96 H (4-34) U/L Alkaline Phosphatase <20 L (38-126) U/L Total Protein 4.7 L (6.3-8.2) g/dL Albumin 3.2 L (3.5-5.0) g/dL Arterial Blood Glucose (75-99) mg/dL Crossmatch 03/03/23 03/03/23 03/03/23 Range/Units 05:58 06:05 06:22 WBC (3.8-10.6) k/uL RBC (3.80-5.40) m/uL Hgb (11.4-16.0) gm/dL Hct (34.0-46.0) % Plt Count (150-450) k/uL Neutrophils # (1.3-7.7) k/uL PT (9.0-12.0) sec INR (<1.2) APTT (22.0-30.0) sec ABG pH (7.35-7.45) ABG pCO2 34 L (35-45) mmHg ABG pO2 (83-108) mmHg ABG HCO3 (21-25) mmol/L ABG Total CO2 (19-24) mmol/L ABG O2 Saturation 98.7 H (94-97) % ABG Hematocrit (34.0-46.0) % ABG Ionized Calcium (4.5-5.3) mg/dL ABG Glucose (75-99) mg/dL Hemoglobin (11.4-16.0) gm/dL Chloride (98-107) mmol/L Carbon Dioxide (22-30) mmol/L Glucose (74-99) mg/dL POC Glucose (mg/dL) 23 L 245 H (70-110) mg/dL Calcium (8.4-10.2) mg/dL Magnesium (1.6-2.3) mg/dL AST (14-36) U/L ALT (4-34) U/L Alkaline Phosphatase (38-126) U/L Total Protein (6.3-8.2) g/dL Albumin (3.5-5.0) g/dL Arterial Blood Glucose (75-99) mg/dL Crossmatch 03/03/23 03/03/23 03/03/23 Range/Units 06:52 07:45 08:57 WBC (3.8-10.6) k/uL RBC (3.80-5.40) m/uL Hgb (11.4-16.0) gm/dL Hct (34.0-46.0) % Plt Count (150-450) k/uL Neutrophils # (1.3-7.7) k/uL PT (9.0-12.0) sec INR (<1.2) APTT (22.0-30.0) sec ABG pH (7.35-7.45) ABG pCO2 (35-45) mmHg ABG pO2 (83-108) mmHg ABG HCO3 (21-25) mmol/L ABG Total CO2 (19-24) mmol/L ABG O2 Saturation (94-97) % ABG Hematocrit (34.0-46.0) % ABG Ionized Calcium (4.5-5.3) mg/dL ABG Glucose (75-99) mg/dL Hemoglobin (11.4-16.0) gm/dL Chloride (98-107) mmol/L Carbon Dioxide (22-30) mmol/L Glucose (74-99) mg/dL POC Glucose (mg/dL) 205 H 179 H 154 H (70-110) mg/dL Calcium (8.4-10.2) mg/dL Magnesium (1.6-2.3) mg/dL AST (14-36) U/L ALT (4-34) U/L Alkaline Phosphatase (38-126) U/L Total Protein (6.3-8.2) g/dL Albumin (3.5-5.0) g/dL Arterial Blood Glucose (75-99) mg/dL Crossmatch 03/03/23 03/03/23 03/03/23 Range/Units 10:02 10:59 11:56 WBC (3.8-10.6) k/uL RBC (3.80-5.40) m/uL Hgb (11.4-16.0) gm/dL Hct (34.0-46.0) % Plt Count (150-450) k/uL Neutrophils # (1.3-7.7) k/uL PT (9.0-12.0) sec INR (<1.2) APTT (22.0-30.0) sec ABG pH (7.35-7.45) ABG pCO2 (35-45) mmHg ABG pO2 (83-108) mmHg ABG HCO3 (21-25) mmol/L ABG Total CO2 (19-24) mmol/L ABG O2 Saturation (94-97) % ABG Hematocrit (34.0-46.0) % ABG Ionized Calcium (4.5-5.3) mg/dL ABG Glucose (75-99) mg/dL Hemoglobin (11.4-16.0) gm/dL Chloride (98-107) mmol/L Carbon Dioxide (22-30) mmol/L Glucose (74-99) mg/dL POC Glucose (mg/dL) 129 H 120 H 122 H (70-110) mg/dL Calcium (8.4-10.2) mg/dL Magnesium (1.6-2.3) mg/dL AST (14-36) U/L ALT (4-34) U/L Alkaline Phosphatase (38-126) U/L Total Protein (6.3-8.2) g/dL Albumin (3.5-5.0) g/dL Arterial Blood Glucose (75-99) mg/dL Crossmatch
[2023-03-03 13:19] LABS: Glucose,Whole Blood 120 mg/dL (70-110)
[2023-03-03 13:58] LABS: Glucose,Whole Blood 117 mg/dL (70-110)
[2023-03-03] MEDS ORDERED: NITROGLYCERIN-D5W PMX 50 MG in DEXTROSE/WATER 1 250ML.BAG IV SCH (14:45)
[2023-03-03] MEDS: NOREPINEPHRINE 4 MG in SODIUM CHLORIDE 0.9% 250 ML IV SCH (14:52)
[2023-03-03 15:03] LABS: Glucose,Whole Blood 114 mg/dL (70-110)
[2023-03-03 15:48] LABS: ABG Base Excess 0.8 mmol/L; ABG HCO3 25 mmol/L (21-25); ABG Oxygen Saturation 97.8 % (94-97); ABG PCO2 36 mmHg (35-45); ABG PH 7.44 (7.35-7.45); ABG PO2 82 mmHg (83-108); ABG TCO2 26 mmol/L (19-24); Allen Test Performed? Yes
[2023-03-03 16:09] LABS: Glucose,Whole Blood 126 mg/dL (70-110)
[2023-03-03] MEDS: INSULIN REGULAR 100 UNIT in SODIUM CHLORIDE 0.9% 100 ML IV SCH (16:15)
[2023-03-03] MEDS: DEXMEDETOMIDINE/0.9% NACL(PMX) 400 MCG in EMPTY BAG 1 BAG IV SCH (16:16)
[2023-03-03 17:20] LABS: Glucose,Whole Blood 133 mg/dL (70-110)
[2023-03-03 18:09] LABS: Glucose,Whole Blood 116 mg/dL (70-110)
[2023-03-03] MEDS: DEXTROSE/WATER 1 250ML.BAG with DOPamine DRIP 800 MG IV SCH (18:17)
[2023-03-03 19:05] LABS: Glucose,Whole Blood 109 mg/dL (70-110)
[2023-03-03 19:55] LABS: Glucose,Whole Blood 110 mg/dL (70-110)
[2023-03-03] MEDS ORDERED: NON FORMULARY DRUG PO SCH (21:00)
[2023-03-03 21:01] LABS: Glucose,Whole Blood 112 mg/dL (70-110)
[2023-03-03] MEDS: SENNOSIDES-DOCUSATE SODIUM 1 EACH TAB PO SCH (21:16)
[2023-03-03] MEDS: LATANOPROST 0.005% OPHTH DROPS 2.5 ML BTL BOTH EYES SCH (21:17)
[2023-03-03 21:49] LABS: Glucose,Whole Blood 118 mg/dL (70-110)
[2023-03-03 23:00] LABS: Glucose,Whole Blood 111 mg/dL (70-110)
[2023-03-03] MEDS: HYDROcodone/APAP 5-325MG 1 EACH TAB PO PRN (23:27)
[2023-03-04 00:04] LABS: Glucose,Whole Blood 142 mg/dL (70-110)
--- NOTE | 2023-03-04 00:50 | PN ---
PROGRESS NOTE HISTORY OF PRESENT ILLNESS: This is a 77-year-old lady with significant left main and LAD disease, who also has moderate to severe mitral regurgitation and yesterday, she underwent aortocoronary bypass surgery with 2 grafts to the LAD and obtuse marginal, the BRITO to LAD and vein graft to obtuse marginal and mitral valve repair. This morning, she remains hemodynamically somewhat unstable, still on some Milrinone. Her urine output is not significant. Her neurological status seems to be questionable. She does not seem to respond to commands appropriately. However, she is hemodynamically reasonably stable and the rhythm appears to be atrial and ventricular paced rhythm. PHYSICAL EXAMINATION: VITAL SIGNS: Blood pressure is about 120/70. CARDIOVASCULAR: S1, S2 heard normally. Pericardial rub is audible. LUNGS: Reveal a ventilator-assisted breath sounds. ABDOMEN: Soft. CENTRAL NERVOUS SYSTEM: Exam not performed. ASSESSMENT AND PLAN: Continue current supportive care. Prognosis is guarded. May need neurology evaluation if she does not improve her mentation. We will continue to follow. JOSEFINA / IJN: [id number] /
[2023-03-04 00:51] LABS: Glucose,Whole Blood 129 mg/dL (70-110)
[2023-03-04 01:48] LABS: Glucose,Whole Blood 125 mg/dL (70-110)
[2023-03-04 02:48] LABS: Glucose,Whole Blood 120 mg/dL (70-110)
[2023-03-04] MEDS: ALBUTEROL 90 MCG INHALATION SCH ×5 (03:33→21:00)
[2023-03-04 04:21] LABS: Glucose,Whole Blood 105 mg/dL (70-110)
[2023-03-04 04:52] LABS: ALT 122 U/L (4-34); AST 182 U/L (14-36); African American GFR (CKD) >90 (>60 ml/min/1.73 sqM); Alkaline Phosphatase 24 U/L (38-126); Anion Gap 5 mmol/L; Blood Urea Nitrogen 10 mg/dL (7-17); Calcium 7.9 mg/dL (8.4-10.2); Carbon Dioxide 25 mmol/L (22-30); Chloride 109 mmol/L (98-107); Glucose 97 mg/dL (74-99); Non-African American GFR(CKD) >90 (>60 ml/min/1.73 sqM); Potassium 3.4 mmol/L (3.5-5.1); Sodium 139 mmol/L (137-145); Total Bilirubin 0.7 mg/dL (0.2-1.3); Total Protein 4.5 g/dL (6.3-8.2)
[2023-03-04 05:08] LABS: Glucose,Whole Blood 107 mg/dL (70-110)
[2023-03-04] MEDS: MILRINONE-D5W PMX 20 MG in DEXTROSE/WATER 1 100ML.BAG IV SCH ×4 (05:16→16:34)
[2023-03-04] MEDS: LACTATED RINGERS 1,000 ML IV SCH (05:17)
[2023-03-04 05:28] LABS: Basophils % (A) 0 %; Eosinophils # (A) 0.1 k/uL (0-0.7); Eosinophils % (A) 1 %; HGB 7.4 gm/dL (11.4-16.0); Lymphocytes # (A) 1.4 k/uL (1.0-4.8); Lymphocytes % (A) 14 %; MCH 29.4 pg (25.0-35.0); MCHC 33.4 g/dL (31.0-37.0); MCV 88.1 fL (80.0-100.0); Mean Platelet Volume 8.6; Monocytes # (A) 0.5 k/uL (0-1.0); Monocytes % (A) 5 %; Neutrophils # (A) 7.7 k/uL (1.3-7.7); Neutrophils % (A) 78 %; RDW 14.2 % (11.5-15.5); WBC 9.8 k/uL (3.8-10.6)
[2023-03-04] MEDS: POTASSIUM BICARBONATE/CIT AC 20 MEQ TABLET.EFF NG-TUBE SCH ×2 (05:28→06:33)
[2023-03-04 06:01] LABS: ABG Base Excess 0.1 mmol/L; ABG HCO3 24 mmol/L (21-25); ABG Oxygen Saturation 99.1 % (94-97); ABG PCO2 34 mmHg (35-45); ABG PH 7.46 (7.35-7.45); ABG PO2 106 mmHg (83-108); ABG TCO2 25 mmol/L (19-24)
[2023-03-04 06:09] LABS: Glucose,Whole Blood 112 mg/dL (70-110)
[2023-03-04 06:28] LABS: Anisocytosis (M) Present
[2023-03-04 06:29] LABS: Platelet Count 95 k/uL (150-450)
[2023-03-04 07:00] LABS: Glucose,Whole Blood 116 mg/dL (70-110)
--- NOTE | 2023-03-04 07:22 | XR ---
EXAMINATION TYPE: XR chest 1V portable DATE OF EXAM: 03/04/2023 5:54 AM COMPARISON: Chest radiographs from 03/03/2023 TECHNIQUE: XR chest 1V portable . CLINICAL INDICATION:Female, 77 years old with history of Post Operative Cardiac Surgery; FINDINGS: Lungs/Pleura: No sizable pneumothorax. Linear scarring or atelectasis within the left lower lung. No pleural effusion. Pulmonary vascularity: Unremarkable. Heart/mediastinum: Cardiomediastinal silhouette is enlarged and stable. Postoperative changes are pr esent in the mediastinum including cardiac valvular prosthesis. Musculoskeletal: No acute osseous pathology. Midline sternotomy wires and surgical clips project over the mediastinum. Orthopedic anchor within the right humeral head. Other findings: None Lines/Tubes: Endotracheal tube with distal tip 1.6 cm above the alisson Nasogastric tube with its distal tip and side-port projecting under the diaphragm. Chest tubes are stable. Right IJ approach [place] catheter is in stable position. Mediastinal drain is in stable position. IMPRESSION: Overall stable postoperative changes with support lines and tubes without evidence for sizable pneumo thorax.
[2023-03-04] MEDS: ALBUTEROL NEBULIZED 2.5 MG/3 ML INHALATION SCH ×4 (07:43→21:03)
[2023-03-04 08:18] LABS: Glucose,Whole Blood 113 mg/dL (70-110)
[2023-03-04 09:14] LABS: Glucose,Whole Blood 110 mg/dL (70-110)
[2023-03-04] MEDS: HEPARIN SODIUM,PORCINE/PF 5,000 UNIT/0.5 ML SYRINGE SQ SCH ×3 (09:29→23:33)
[2023-03-04] MEDS: ASCORBIC ACID 500 MG TAB PO SCH (09:29)
[2023-03-04] MEDS: ASPIRIN 325 MG TAB PO SCH (09:29)
[2023-03-04] MEDS: ATORVASTATIN 40 MG TAB PO SCH (09:29)
[2023-03-04] MEDS: METOPROLOL TARTRATE 12.5 MG TAB PO SCH ×2 (09:29→20:24)
[2023-03-04] MEDS: PANTOPRAZOLE 40 MG/10 ML VIAL IVP SCH (09:29)
[2023-03-04] MEDS: CLOPIDOGREL 75 MG TAB PO SCH (09:29)
[2023-03-04] MEDS: MULTIVITAMINS, THERA 1 EACH TAB PO SCH (09:29)
--- NOTE | 2023-03-04 09:38 | P.PN ---
Subjective Progress Note Date: 03/04/23 Principal diagnosis: Coronary artery disease with left main disease. History of hyperlipidemia, cardiomyopathy with decreased systolic function, moderate to severe central mitral regurgitation, asthma with multiple exacerbations, diabetes mellitus, previous tobacco dependence, GERD, osteoarthritis, covid infection in September 2022 POD #2 coronary artery bypass graft 2 with left internal thoracic artery to left anterior descending artery, reverse saphenous vein graft from the aorta to the first obtuse marginal, mitral valve repair with a #26 physio-2 annuloplasty ring, endoscopic harvesting of the left greater saphenous vein, left atrial appendage ligation with a #35 mm AtriClip, graft flow measurements using the [employer] flowmeter system, intraoperative transesophageal echocardiogram and insertion of right common femoral arterial line by anesthesia Postoperative acute blood loss anemia and thrombocytopenia, expected given hemodilution and cardiopulmonary bypass pump Prolonged mechanical ventilation, expected given the patient's severe restrictive lung disease Hypotension requiring pressor use The patient was seen and examined this morning laying in bed in the intensive care unit in no acute distress. Remains mechanically ventilated, off all sedation. Currently in sinus rhythm, hemodynamics stable. IV dopamine/Primacor/nitro all infusing. Patient does open her eyes and moves all extremities, although not consistently to command. Urine output adequate. Right internal jugular Catano/Cordis, right radial arterial line, mediastinal/right/left pleural chest tubes all remain. Chest x-ray, labs reviewed. Objective - Vital Signs Vital signs: Vital Signs Temp 98.4 F 03/03/23 00:00 Pulse 99 03/04/23 07:00 Resp 24 03/04/23 07:00 BP 168/68 03/03/23 11:00 Pulse Ox 100 03/04/23 07:00 FiO2 40 03/04/23 07:34 Intake & Output 03/03/23 03/04/23 03/04/23 18:59 06:59 18:59 Intake Total 1819.319 787.200 39 Output Total 707 720 45 Balance 1112.319 67.200 -6 Weight 85.5 kg 86.1 kg Intake: IV 1588 668 39 Albumin Human 5% 250 ml 750 In Empty Bag 1 bag @ 250 mls/hr IVPB Q1HR PRN Rx#: [id number] CO/CI 280 200 Lactated Ringers 1,000 ml 400 360 30 @ 50 mls/hr IV .Q20H [facility] Rx#:[id number] ceFAZolin 2 gm In Sodium 50 Chloride 0.9% 50 ml @ 100 mls/hr IVPB ONCE ONE Rx# :[id number] pressure bags 108 108 9 Intake, IV Titration 231.319 119.200 Amount Dexmedetomidine/0.9% NaCl 2.209 7.590 (Pmx) 400 mcg In Empty Bag 1 bag @ 0.2 MCG/KG/HR 4.275 mls/hr IV .[id number] [facility] Rx#:[id number] Insulin Regular 100 unit 29.105 11.610 In Sodium Chloride 0.9% 100 ml @ Per Protocol IV .Q0M [facility] Rx#:[id number] Milrinone-D5w Pmx 20 mg 168.500 100 In Dextrose/Water 1 100ml .bag @ 0.375 MCG/KG/MIN 8 .708 mls/hr IV .[id number] [facility] Rx#:[id number] Norepinephrine 4 mg In 31.505 Sodium Chloride 0.9% 250 ml @ 0.03 MCG/KG/MIN 8. 847 mls/hr IV .Q24H [facility] Rx#:[id number] Output: Chest Tube Drainage 334 320 20 Chest Tube Mediastinal 134 120 10 Right/Left Chest Tube 200 200 10 Urine 373 400 25 Other: Voiding Method Indwelling Catheter Indwelling Catheter ABP, PAP, CO, CI - Last Documented Arterial Blood Pressure 146/56 Pulmonary Artery Pressure 36/19 Cardiac Output 4.0 Cardiac Index 2.3 - Exam CONSTITUTIONAL: Appears comfortable on mechanical ventilation RESPIRATORY: Lungs sounds diminished bilaterally. Respirations even, nonlabored. Currently on assist control mode, FiO2 40%, tidal volume 360, respiratory rate 16, PEEP 5. 8.0 ET tube present, 22 at the lip. CARDIOVASCULAR: S1, S2 present. Regular rate and rhythm, sinus rhythm on telemetry. Sternum stable. Palpable peripheral pulses bilaterally. No edema present. Heart hugger, antiembolism stockings, SCDs present. GASTROINTESTINAL: Abdomen soft, nontender, nondistended. Active bowel sounds present 4 quadrants. OG tube present to the low intermittent suction GENITOURINARY: Pardo present draining clear, yellow urine. Output overnight 25-60 mL per hour INTEGUMENTARY: Skin is warm and dry with evidence of good perfusion. Anterior chest incision well approximated and covered with dry intact dressing. Left lower extremity EVH site well approximated without redness or drainage. NEUROLOGIC: Cranial nerves II through XII intact MUSKULOSKELETAL: Able to move all extremities although not consistently to command INVASIVE LINES AND TUBES: Mediastinal/left/right pleural chest tubes present and connected to wall suction, no air leaks present. Mediastinal tube with 100 mL serosanguineous drainage overnight, 270 mL in the last 24 hours. Left/right pleural chest tubes with 180 mL serosanguineous drainage overnight, 400 mL in the last 24 hours. A/V epicardial pacemaker wires present, connected to generator, backup rate 50 bpm. Right internal jugular Catano/Cordis, right radial arterial line present. Last CO/CI 4.0/2.3, PA 37/20, CVP 13. - Allied health notes Allied health notes reviewed: nursing - Labs CBC & Chem 7: 03/04/23 04:22 03/04/23 04:22 Labs: Abnormal Lab Results - Last 24 Hours (Table) 03/03/23 03/03/23 03/03/23 Range/Units 07:45 08:57 10:02 RBC (3.80-5.40) m/uL Hgb (11.4-16.0) gm/dL Hct (34.0-46.0) % Plt Count (150-450) k/uL ABG pH (7.35-7.45) ABG pCO2 (35-45) mmHg ABG pO2 (83-108) mmHg ABG Total CO2 (19-24) mmol/L ABG O2 Saturation (94-97) % Potassium (3.5-5.1) mmol/L Chloride (98-107) mmol/L POC Glucose (mg/dL) 179 H 154 H 129 H (70-110) mg/dL Calcium (8.4-10.2) mg/dL AST (14-36) U/L ALT (4-34) U/L Alkaline Phosphatase (38-126) U/L Total Protein (6.3-8.2) g/dL Albumin (3.5-5.0) g/dL 03/03/23 03/03/23 03/03/23 Range/Units 10:59 11:56 13:18 RBC (3.80-5.40) m/uL Hgb (11.4-16.0) gm/dL Hct (34.0-46.0) % Plt Count (150-450) k/uL ABG pH (7.35-7.45) ABG pCO2 (35-45) mmHg ABG pO2 (83-108) mmHg ABG Total CO2 (19-24) mmol/L ABG O2 Saturation (94-97) % Potassium (3.5-5.1) mmol/L Chloride (98-107) mmol/L POC Glucose (mg/dL) 120 H 122 H 120 H (70-110) mg/dL Calcium (8.4-10.2) mg/dL AST (14-36) U/L ALT (4-34) U/L Alkaline Phosphatase (38-126) U/L Total Protein (6.3-8.2) g/dL Albumin (3.5-5.0) g/dL 03/03/23 03/03/23 03/03/23 Range/Units 13:57 15:02 15:46 RBC (3.80-5.40) m/uL Hgb (11.4-16.0) gm/dL Hct (34.0-46.0) % Plt Count (150-450) k/uL ABG pH (7.35-7.45) ABG pCO2 (35-45) mmHg ABG pO2 82 L (83-108) mmHg ABG Total CO2 26 H (19-24) mmol/L ABG O2 Saturation 97.8 H (94-97) % Potassium (3.5-5.1) mmol/L Chloride (98-107) mmol/L POC Glucose (mg/dL) 117 H 114 H (70-110) mg/dL Calcium (8.4-10.2) mg/dL AST (14-36) U/L ALT (4-34) U/L Alkaline Phosphatase (38-126) U/L Total Protein (6.3-8.2) g/dL Albumin (3.5-5.0) g/dL 03/03/23 03/03/23 03/03/23 Range/Units 16:07 17:09 18:08 RBC (3.80-5.40) m/uL Hgb (11.4-16.0) gm/dL Hct (34.0-46.0) % Plt Count (150-450) k/uL ABG pH (7.35-7.45) ABG pCO2 (35-45) mmHg ABG pO2 (83-108) mmHg ABG Total CO2 (19-24) mmol/L ABG O2 Saturation (94-97) % Potassium (3.5-5.1) mmol/L Chloride (98-107) mmol/L POC Glucose (mg/dL) 126 H 133 H 116 H (70-110) mg/dL Calcium (8.4-10.2) mg/dL AST (14-36) U/L ALT (4-34) U/L Alkaline Phosphatase (38-126) U/L Total Protein (6.3-8.2) g/dL Albumin (3.5-5.0) g/dL 03/03/23 03/03/23 03/03/23 Range/Units 20:59 21:48 22:58 RBC (3.80-5.40) m/uL Hgb (11.4-16.0) gm/dL Hct (34.0-46.0) % Plt Count (150-450) k/uL ABG pH (7.35-7.45) ABG pCO2 (35-45) mmHg ABG pO2 (83-108) mmHg ABG Total CO2 (19-24) mmol/L ABG O2 Saturation (94-97) % Potassium (3.5-5.1) mmol/L Chloride (98-107) mmol/L POC Glucose (mg/dL) 112 H 118 H 111 H (70-110) mg/dL Calcium (8.4-10.2) mg/dL AST (14-36) U/L ALT (4-34) U/L Alkaline Phosphatase (38-126) U/L Total Protein (6.3-8.2) g/dL Albumin (3.5-5.0) g/dL 03/04/23 03/04/23 03/04/23 Range/Units 00:03 00:49 01:46 RBC (3.80-5.40) m/uL Hgb (11.4-16.0) gm/dL Hct (34.0-46.0) % Plt Count (150-450) k/uL ABG pH (7.35-7.45) ABG pCO2 (35-45) mmHg ABG pO2 (83-108) mmHg ABG Total CO2 (19-24) mmol/L ABG O2 Saturation (94-97) % Potassium (3.5-5.1) mmol/L Chloride (98-107) mmol/L POC Glucose (mg/dL) 142 H 129 H 125 H (70-110) mg/dL Calcium (8.4-10.2) mg/dL AST (14-36) U/L ALT (4-34) U/L Alkaline Phosphatase (38-126) U/L Total Protein (6.3-8.2) g/dL Albumin (3.5-5.0) g/dL 03/04/23 03/04/23 03/04/23 Range/Units 02:46 04:22 04:22 RBC 2.50 L (3.80-5.40) m/uL Hgb 7.4 L (11.4-16.0) gm/dL Hct 22.0 L (34.0-46.0) % Plt Count 95 L (150-450) k/uL ABG pH (7.35-7.45) ABG pCO2 (35-45) mmHg ABG pO2 (83-108) mmHg ABG Total CO2 (19-24) mmol/L ABG O2 Saturation (94-97) % Potassium 3.4 L (3.5-5.1) mmol/L Chloride 109 H (98-107) mmol/L POC Glucose (mg/dL) 120 H (70-110) mg/dL Calcium 7.9 L (8.4-10.2) mg/dL AST 182 H (14-36) U/L ALT 122 H (4-34) U/L Alkaline Phosphatase 24 L (38-126) U/L Total Protein 4.5 L (6.3-8.2) g/dL Albumin 3.0 L (3.5-5.0) g/dL 03/04/23 03/04/23 03/04/23 Range/Units 05:57 06:08 06:58 RBC (3.80-5.40) m/uL Hgb (11.4-16.0) gm/dL Hct (34.0-46.0) % Plt Count (150-450) k/uL ABG pH 7.46 H (7.35-7.45) ABG pCO2 34 L (35-45) mmHg ABG pO2 (83-108) mmHg ABG Total CO2 25 H (19-24) mmol/L ABG O2 Saturation 99.1 H (94-97) % Potassium (3.5-5.1) mmol/L Chloride (98-107) mmol/L POC Glucose (mg/dL) 112 H 116 H (70-110) mg/dL Calcium (8.4-10.2) mg/dL AST (14-36) U/L ALT (4-34) U/L Alkaline Phosphatase (38-126) U/L Total Protein (6.3-8.2) g/dL Albumin (3.5-5.0) g/dL - Imaging and Cardiology Chest x-ray: report reviewed, image reviewed Assessment and Plan Assessment: Coronary artery disease with left main disease, status post 2 vessel CABG Hyperlipidemia, treated, cholesterol 148, LDL 51, triglycerides 201 Cardiomyopathy/chronic systolic heart failure with decreased systolic function, EF 35% on MARY 02/28/23 Moderate to severe central mitral regurgitation on MARY 02/28/23, status post mitral valve repair Asthma with multiple exacerbations, relieved with steroids Severe restrictive lung disease, FEV1 42% of predicted Diabetes mellitus, hemoglobin A1c 6.9% Previous tobacco dependence GERD Osteoarthritis Covid infection in September 2022 Postoperative acute blood loss anemia, expected Postoperative prolonged mechanical ventilation, expected Hypotension requiring pressor use Plan: Continue to maximize medical therapy with aspirin, statin, Plavix, and beta analisa with hold parameters. Will increase beta analisa as tolerated. Will wean primacor, dopamine when able. Continue IV NTG for BP support Mechanical ventilator management per pulmonology/critical care recommendations. Once extubated encourage incentive spirometry 10 times every hour while awake. Bronchodilators per pulmonology. Will monitor daily labs and chest x-rays. Electrolyte replacement per protocol. GI/DVT prophylaxis. Pain control with current medication regimen. Once the patient is extubated increase activity, ambulate as tolerated, PT/OT/cardiac rehab consulted. Insulin management per internal medicine service. Patient is diabetic with hemoglobin A1c 6.9%. Continue mediastinal/left/right pleural chest tubes for another 24 hours. Continue Pardo catheter for another 24 hours for strict accurate intake and output.. Daily weights Keep right IJ Catano-Clark catheter, continue to monitor hemodynamics Will give solucortef 50 mg IVP every 8 hours for stress dose as patient was on steroids preop Keep atrial and ventricular epicardial pacemaker wires in place and connected to back up generator More recommendations to follow based
[2023-03-04] MEDS: NITROGLYCERIN-D5W PMX 50 MG in DEXTROSE/WATER 1 250ML.BAG IV SCH ×2 (10:00→16:42)
[2023-03-04 10:18] LABS: Glucose,Whole Blood 111 mg/dL (70-110)
--- NOTE | 2023-03-04 10:34 | P.PN ---
Subjective Progress Note Date: 03/04/23 Principal diagnosis: ICU/ventilator management. Coronary artery disease and mitral valve regurgitation This is a 77-year-old female with history of severe persistent bronchial asthma, former smoker quit in 1973, however looking back at her PFT in the office it was basically unremarkable and nonobstructive in nature. Nonetheless the patient has been experiencing over the last 3 years intermittent episodes of cough wheezing and shortness of breath, and has been requiring multiple courses of steroids, and at one point she was maintained on prednisone for her asthma by Dr. Swift. Patient also has multiple ALLERGIES and she cannot tolerate a lot of the inhalers as listed on her ALLERGY list. Patient was last admitted to the hospital and we saw on consultation on 01/12/2023, patient ended up on prednisone 10 mg daily and again very she inhalers that she can use at home. He goes of presumptive ALLERGY to inhalers. Patient was recently evaluated by Dr. Montes for her abnormal LV dysfunction ejection fraction of 35-40%, and she underwent a cardiac catheterization which showed demonstrated left main coronary artery disease due to this finding, the patient was referred to cardiothoracic surgery for surgical intervention, patient is being worked up for surgery, and part of the workup included a pulmonary consultation for preoperative clearance. Presently the patient denies any shortness of breath at rest, no cough no wheezing she does have chronic dyspnea on exertion. Again I reviewed her last PFT in the office and it was relatively normal based on this alone, I would clear the patient for surgery as scheduled, the benefits of surgery outweigh the risks The patient is seen today 03/01/2023 in follow-up on the cardiac floor. She is currently sitting up in bed. Awake and alert in no acute distress. No worsening shortness of breath, cough or congestion. Her asthma is currently inactive and stable. She is maintaining good O2 saturations in the upper 90s on room air. Afebrile. Hemodynamically stable. She is continued on her bronchodilators. Resumed on her prednisone. MARY from yesterday revealed moderate to severe mitral regurgitation and global hypokinesis with impaired left ventricular systolic function and ejection fraction 35%. Plan per CT services is for coronary revascularization and mitral valve repair possibly tomorrow. I'm seeing this patient today 03/03/2023 in follow-up post elective coronary artery bypass grafts 2 with a BRITO to LAD and saphenous vein graft to the OM 1, mitral valve repair with a #26 Physio II annuloplasty ring, and left atrial appendage ligation. Patient remains intubated after the procedure, with vent settings of assist control, respiratory rate 16, tidal volume 360, FiO2 40%, and PEEP of 5. The patient's postoperative ABG showed a pO2 of 159, pCO2 of 33, and pH of 7.47. Postoperative chest x-ray showed the endotracheal tube approximately 2 cm from the alisson, NG tube coursing below the diaphragm, a pulmonary artery catheter appropriately place, and some postoperative cardiac prosthesis and sternotomy wires. No obvious pneumothorax., On my evaluation, the patient's most recent CO/CI is 2.6 and 1.5 respectively. Patient's blood pressure is hypotensive with a mean arterial pressure of 58. PA pressures are 41/17. Heart rhythm is normal sinus at about 60 bpm. Patient reportedly r eceived a total of 750 ML's of 5% albumin. Currently, norepinephrine is infusing at 7.7 mics per minute, milrinone infusing at 0.375 mics per kilogram per minute, amiodarone is infusing at 0.5 mg/m due to some perioperative atrial fibrillation, and lactated Ringer's is infusing at 50 ML's per hour. Patient has a mediastinal and bilateral right and left pleural chest tubes. The mediastinal chest tube has put out 73 mL of serosanguineous output, and both right and left pleural chest tube sites are wide together and put out approximately 330 ML's of serosanguineous output. Most recent CBC done around 2100 shows a WBC count of 10, hemoglobin 8, hematocrit 24, platelets 100,000. INR 1.3. Patient's BMP at that time showed a sodium 141, potassium 3.9, chloride 110, serum CO2 25, BUN 7, creatinine 0.44, glucose 129. Insulin infusion is currently paused. Urine output is marginal at 20 mL per hour. We did attempt weaning trial on this patient with a pressure support of 8 and a CPAP of 5. Patient was still quite lethargic from sedation and only pulling tidal volumes of 100-200. For this reason, and the fact that the patient's hemodynamic status is marginal at this time, we will hold off on extubating. We will reassess patient's readiness to wean once more alert and able to cooperate with weaning trial. Progress note dated 03/04/2023. The patient is seen today in room 267. Yesterday, the patient had multiple weaning trials, and did very poorly on all of them. The patient is status post two-vessel bypass grafting, and mitral valve repair, as well as left atrial appendage ligation. Currently, the patient is on volume assist control, rate 16, tidal volume 360, FiO2 40%, and PEEP of 5. Blood gases show pO2 106, pCO2 34, pH is 7.46. The patient's getting lactated Ringer's at 30 mL an hour, insulin, is currently on hold, nitroglycerin running at 5 mcg/m, dopamine at 2 mcg/kg/m, and Primacor 0.375 mcg/kg/m. The patient had another weaning trial today, with 10 of pressure support and 5 of CPAP. Weaning parameters including a tidal volume of only 261 mL, respiratory rate of 36, rapid shallow breathing index of 161, minute ventilation of 10 L/m, vital capacity of 310 mL, negative inspiratory force of -24, and she did have a positive cuff leak. Because of the elevated R SBI, the patient which surely fail a trial of extubation, and therefore is not extubated this morning. White count 9.8, hemoglobin 7.4, hematocrit 22, platelet count 95,000. Sodium 139, potassium 3.4, chlorides 109, CO2 25, BUN 10, creatinine 0.59. AST was 182. ALT was 122. Albumin was 3.0. Chest x-ray show typical postoperative changes. There is some bibasilar atelectasis. Objective - Vital Signs Vital signs: Vital Signs Temp 100.0 F H 03/04/23 08:00 Pulse 93 03/04/23 09:45 Resp 36 H 03/04/23 09:45 BP 122/64 03/04/23 08:30 Pulse Ox 98 03/04/23 09:45 FiO2 40 03/04/23 09:52 Intake & Output 03/03/23 03/04/23 03/04/23 18:59 06:59 18:59 Intake Total 1819.319 787.200 178.397 Output Total 707 720 230 Balance 1112.319 67.200 -51.603 Weight 85.5 kg 86.1 kg Intake: IV 1588 668 177 Albumin Human 5% 250 ml 750 In Empty Bag 1 bag @ 250 mls/hr IVPB Q1HR PRN Rx#: [id number] CO/CI 280 200 60 Lactated Ringers 1,000 ml 400 360 90 @ 50 mls/hr IV .Q20H [facility] Rx#:[id number] ceFAZolin 2 gm In Sodium 50 Chloride 0.9% 50 ml @ 100 mls/hr IVPB ONCE ONE Rx# :[id number] pressure bags 108 108 27 Intake, IV Titration 231.319 119.200 1.397 Amount Dexmedetomidine/0.9% NaCl 2.209 7.590 (Pmx) 400 mcg In Empty Bag 1 bag @ 0.2 MCG/KG/HR 4.275 mls/hr IV .[id number] [facility] Rx#:[id number] Insulin Regular 100 unit 29.105 11.610 1.397 In Sodium Chloride 0.9% 100 ml @ Per Protocol IV .Q0M [facility] Rx#:[id number] Milrinone-D5w Pmx 20 mg 168.500 100 In Dextrose/Water 1 100ml .bag @ 0.375 MCG/KG/MIN 8 .708 mls/hr IV .[id number] [facility] Rx#:[id number] Norepinephrine 4 mg In 31.505 Sodium Chloride 0.9% 250 ml @ 0.03 MCG/KG/MIN 8. 847 mls/hr IV .Q24H [facility] Rx#:[id number] Output: Chest Tube Drainage 334 320 80 Chest Tube Mediastinal 134 120 40 Right/Left Chest Tube 200 200 40 Urine 373 400 150 Other: Voiding Method Indwelling Catheter Indwelling Catheter ABP, PAP, CO, CI - Last Documented Arterial Blood Pressure 175/63 Pulmonary Artery Pressure 51/19 Cardiac Output 3.9 Cardiac Index 2.2 - Exam No acute distress, poorly responsive, with an orally placed endotracheal tube and NG tube. HEENT examination is grossly unremarkable. Neck supple. Full range of motion. No adenopathy thyromegaly or neck vein distention. Cardiovascular examination reveals regular rhythm rate. S1-S2 normal. No S3 or S4. No discernible murmur noted. Heart sounds are distant. Heart rate 102 bpm. Lungs reveal scattered bilateral rhonchi. No wheezes or crackles. Breath sounds equal bilaterally. Abdomen soft bowel sounds are heard. No masses or tenderness. Extremities are intact. No cyanosis clubbing or edema. Skin is without rash or lesion. Neurologic examination is difficult to assess at this time. - Labs CBC & Chem 7: 03/04/23 04:22 03/04/23 04:22 Labs: Abnormal Lab Results - Last 24 Hours (Table) 03/03/23 03/03/23 03/03/23 Range/Units 10:59 11:56 13:18 RBC (3.80-5.40) m/uL Hgb (11.4-16.0) gm/dL Hct (34.0-46.0) % Plt Count (150-450) k/uL ABG pH (7.35-7.45) ABG pCO2 (35-45) mmHg ABG pO2 (83-108) mmHg ABG Total CO2 (19-24) mmol/L ABG O2 Saturation (94-97) % Potassium (3.5-5.1) mmol/L Chloride (98-107) mmol/L POC Glucose (mg/dL) 120 H 122 H 120 H (70-110) mg/dL Calcium (8.4-10.2) mg/dL AST (14-36) U/L ALT (4-34) U/L Alkaline Phosphatase (38-126) U/L Total Protein (6.3-8.2) g/dL Albumin (3.5-5.0) g/dL 03/03/23 03/03/23 03/03/23 Range/Units 13:57 15:02 15:46 RBC (3.80-5.40) m/uL Hgb (11.4-16.0) gm/dL Hct (34.0-46.0) % Plt Count (150-450) k/uL ABG pH (7.35-7.45) ABG pCO2 (35-45) mmHg ABG pO2 82 L (83-108) mmHg ABG Total CO2 26 H (19-24) mmol/L ABG O2 Saturation 97.8 H (94-97) % Potassium (3.5-5.1) mmol/L Chloride (98-107) mmol/L POC Glucose (mg/dL) 117 H 114 H (70-110) mg/dL Calcium (8.4-10.2) mg/dL AST (14-36) U/L ALT (4-34) U/L Alkaline Phosphatase (38-126) U/L Total Protein (6.3-8.2) g/dL Albumin (3.5-5.0) g/dL 03/03/23 03/03/23 03/03/23 Range/Units 16:07 17:09 18:08 RBC (3.80-5.40) m/uL Hgb (11.4-16.0) gm/dL Hct (34.0-46.0) % Plt Count (150-450) k/uL ABG pH (7.35-7.45) ABG pCO2 (35-45) mmHg ABG pO2 (83-108) mmHg ABG Total CO2 (19-24) mmol/L ABG O2 Saturation (94-97) % Potassium (3.5-5.1) mmol/L Chloride (98-107) mmol/L POC Glucose (mg/dL) 126 H 133 H 116 H (70-110) mg/dL Calcium (8.4-10.2) mg/dL AST (14-36) U/L ALT (4-34) U/L Alkaline Phosphatase (38-126) U/L Total Protein (6.3-8.2) g/dL Albumin (3.5-5.0) g/dL 03/03/23 03/03/23 03/03/23 Range/Units 20:59 21:48 22:58 RBC (3.80-5.40) m/uL Hgb (11.4-16.0) gm/dL Hct (34.0-46.0) % Plt Count (150-450) k/uL ABG pH (7.35-7.45) ABG pCO2 (35-45) mmHg ABG pO2 (83-108) mmHg ABG Total CO2 (19-24) mmol/L ABG O2 Saturation (94-97) % Potassium (3.5-5.1) mmol/L Chloride (98-107) mmol/L POC Glucose (mg/dL) 112 H 118 H 111 H (70-110) mg/dL Calcium (8.4-10.2) mg/dL AST (14-36) U/L ALT (4-34) U/L Alkaline Phosphatase (38-126) U/L Total Protein (6.3-8.2) g/dL Albumin (3.5-5.0) g/dL 03/04/23 03/04/23 03/04/23 Range/Units 00:03 00:49 01:46 RBC (3.80-5.40) m/uL Hgb (11.4-16.0) gm/dL Hct (34.0-46.0) % Plt Count (150-450) k/uL ABG pH (7.35-7.45) ABG pCO2 (35-45) mmHg ABG pO2 (83-108) mmHg ABG Total CO2 (19-24) mmol/L ABG O2 Saturation (94-97) % Potassium (3.5-5.1) mmol/L Chloride (98-107) mmol/L POC Glucose (mg/dL) 142 H 129 H 125 H (70-110) mg/dL Calcium (8.4-10.2) mg/dL AST (14-36) U/L ALT (4-34) U/L Alkaline Phosphatase (38-126) U/L Total Protein (6.3-8.2) g/dL Albumin (3.5-5.0) g/dL 03/04/23 03/04/23 03/04/23 Range/Units 02:46 04:22 04:22 RBC 2.50 L (3.80-5.40) m/uL Hgb 7.4 L (11.4-16.0) gm/dL Hct 22.0 L (34.0-46.0) % Plt Count 95 L (150-450) k/uL ABG pH (7.35-7.45) ABG pCO2 (35-45) mmHg ABG pO2 (83-108) mmHg ABG Total CO2 (19-24) mmol/L ABG O2 Saturation (94-97) % Potassium 3.4 L (3.5-5.1) mmol/L Chloride 109 H (98-107) mmol/L POC Glucose (mg/dL) 120 H (70-110) mg/dL Calcium 7.9 L (8.4-10.2) mg/dL AST 182 H (14-36) U/L ALT 122 H (4-34) U/L Alkaline Phosphatase 24 L (38-126) U/L Total Protein 4.5 L (6.3-8.2) g/dL Albumin 3.0 L (3.5-5.0) g/dL 03/04/23 03/04/23 03/04/23 Range/Units 05:57 06:08 06:58 RBC (3.80-5.40) m/uL Hgb (11.4-16.0) gm/dL Hct (34.0-46.0) % Plt Count (150-450) k/uL ABG pH 7.46 H (7.35-7.45) ABG pCO2 34 L (35-45) mmHg ABG pO2 (83-108) mmHg ABG Total CO2 25 H (19-24) mmol/L ABG O2 Saturation 99.1 H (94-97) % Potassium (3.5-5.1) mmol/L Chloride (98-107) mmol/L POC Glucose (mg/dL) 112 H 116 H (70-110) mg/dL Calcium (8.4-10.2) mg/dL AST (14-36) U/L ALT (4-34) U/L Alkaline Phosphatase (38-126) U/L Total Protein (6.3-8.2) g/dL Albumin (3.5-5.0) g/dL 03/04/23 03/04/23 Range/Units 08:17 10:16 RBC (3.80-5.40) m/uL Hgb (11.4-16.0) gm/dL Hct (34.0-46.0) % Plt Count (150-450) k/uL ABG pH (7.35-7.45) ABG pCO2 (35-45) mmHg ABG pO2 (83-108) mmHg ABG Total CO2 (19-24) mmol/L ABG O2 Saturation (94-97) % Potassium (3.5-5.1) mmol/L Chloride (98-107) mmol/L POC Glucose (mg/dL) 113 H 111 H (70-110) mg/dL Calcium (8.4-10.2) mg/dL AST (14-36) U/L ALT (4-34) U/L Alkaline Phosphatase (38-126) U/L Total Protein (6.3-8.2) g/dL Albumin (3.5-5.0) g/dL Assessment and Plan Assessment: Postop day #2, status post two-vessel bypass grafting, mitral valve repair, and left atrial appendage ligation. Routine postoperative ventilator management, with failure to wean from mechanical ventilation, despite multiple attempts. History of CAD. Ischemic cardiomyopathy, with ejection fraction 35%. Moderate to severe mitral regurgitation. Severe persistent asthma. Previous tobacco dependence. Type 2 diabetes mellitus. Degenerative disc disease. Gastroesophageal reflux disease. Plan: Plan dated 03/04/2023. The patient was given another weaning trial this morning. She was placed on pressure support of 10, and CPAP of 5. Despite that, she had very poor weaning parameters, and we do very poorly of extubated. Her rapid shallow breathing index which is the best indicator of the patient's ability to breathe spontaneously, was 161. That number should be less than 105, and probably even less than 80. Nonetheless, the patient will continue on mechanical ventilation at this time. Continue to follow the patient. Labs, x-rays, medications are reviewed. The patient remains on a number drips including nitroglycerin, dopamine, and Primacor. Insulin is currently on hold. We will continue to fol low make recommendations along the way. Time with Patient: Greater than 30
[2023-03-04] MEDS: HYDROCORTISONE SUCCINATE 100 MG/2 ML VIAL IV SCH ×3 (11:41→23:33)
[2023-03-04] MEDS: MUPIROCIN 2% OINT 22 GM TUBE TOPICAL SCH ×2 (11:45→20:24)
[2023-03-04] MEDS: SODIUM CHLORIDE 0.9% 1,000 ML IV SCH (11:53)
[2023-03-04] MEDS ORDERED: POTASSIUM BICARBONATE/CIT AC 20 MEQ TABLET.EFF NG-TUBE SCH (12:00)
[2023-03-04 12:03] LABS: Glucose,Whole Blood 107 mg/dL (70-110)
--- NOTE | 2023-03-04 12:21 | P.PN ---
Subjective Progress Note Date: 03/04/23 Principal diagnosis: Multiple vessel coronary artery disease requiring CABG SUBJECTIVE : Patient seen and evaluated, intubated, off sedation moving extremities, ovary extremities does open eyes to verbal command however still intubated REVIEW OF SYSTEMS: Unable to complete question intubated PHYSICAL EXAMINATION: Vitals reviewed, chest tube and lines reviewed GENERAL: Intubated HEENT: Pupils are round and equally reacting to light. CARDIOVASCULAR: S1 and S2 present. No murmurs, rubs, or gallops. PULMONARY: Intubated on ventilator. ABDOMEN: Soft, nontender, nondistended, normoactive bowel sounds. No palpable organomegaly. MUSCULOSKELETAL: No joint swelling or deformity. EXTREMITIES: No cyanosis, clubbing, or pedal edema. NEUROLOGICAL: Gross neurological examination did not reveal any focal deficits. SKIN: No rashes. 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 status post CABG Ischemic cardiomyopathy and LV dysfunction with ejection fraction of 35-40% based on transthoracic echo from 09/2022 mitral regurgitation Acute respiratory failure requiring intubation and mechanical ventilation Postoperative anemia Severe persistent asthma Type 2 diabetes Degenerative disc disease GERD without esophagitis Plan * For coronary artery disease and cardiomyopathy patient seen by cardiology as well as cardiac surgery> status post CABG managed by ICU team * Internal medicine team will follow along postoperatively patient in ICU POST CABG * Labs reviewed * Continue to monitor H&H hemoglobin decreased from 13 Koening down to 7, we'll defer transfusion to cardiac surgery in ICU team * Care plan discussed with sister at bedside Objective - Vital Signs Vital signs: Vital Signs Temp 100.0 F H 03/04/23 08:00 Pulse 101 H 03/04/23 11:00 Resp 25 H 03/04/23 11:00 BP 108/56 03/04/23 11:00 Pulse Ox 100 03/04/23 11:00 FiO2 40 03/04/23 11:07 Intake & Output 03/03/23 03/04/23 03/04/23 18:59 06:59 18:59 Intake Total 1819.319 787.200 396.397 Output Total 707 720 380 Balance 1112.319 67.200 16.397 Weight 85.5 kg 86.1 kg 86.1 kg Intake: IV 1588 668 295 Albumin Human 5% 250 ml 750 In Empty Bag 1 bag @ 250 mls/hr IVPB Q1HR PRN Rx#: [id number] CO/CI 280 200 100 Lactated Ringers 1,000 ml 400 360 120 @ 50 mls/hr IV .Q20H [facility] Rx#:[id number] Sodium Chloride 0.9% 1, 30 000 ml @ 20 mls/hr IV . Q24H [facility] Rx#:[id number] ceFAZolin 2 gm In Sodium 50 Chloride 0.9% 50 ml @ 100 mls/hr IVPB ONCE ONE Rx# :[id number] pressure bags 108 108 45 Intake, IV Titration 231.319 119.200 1.397 Amount Dexmedetomidine/0.9% NaCl 2.209 7.590 (Pmx) 400 mcg In Empty Bag 1 bag @ 0.2 MCG/KG/HR 4.275 mls/hr IV .[id number] [facility] Rx#:[id number] Insulin Regular 100 unit 29.105 11.610 1.397 In Sodium Chloride 0.9% 100 ml @ Per Protocol IV .Q0M [facility] Rx#:[id number] Milrinone-D5w Pmx 20 mg 168.500 100 In Dextrose/Water 1 100ml .bag @ 0.375 MCG/KG/MIN 8 .708 mls/hr IV .[id number] [facility] Rx#:[id number] Norepinephrine 4 mg In 31.505 Sodium Chloride 0.9% 250 ml @ 0.03 MCG/KG/MIN 8. 847 mls/hr IV .Q24H [facility] Rx#:[id number] Other 100 Output: Chest Tube Drainage 334 320 150 Chest Tube Mediastinal 134 120 60 Right/Left Chest Tube 200 200 90 Urine 373 400 230 Other: Voiding Method Indwelling Catheter Indwelling Catheter ABP, PAP, CO, CI - Last Documented Arterial Blood Pressure 121/45 Pulmonary Artery Pressure 34/18 Cardiac Output 4.3 Cardiac Index 2.5 - Labs CBC & Chem 7: 03/04/23 04:22 03/04/23 10:17 Labs: Abnormal Lab Results - Last 24 Hours (Table) 03/03/23 03/03/23 03/03/23 Range/Units 13:18 13:57 15:02 RBC (3.80-5.40) m/uL Hgb (11.4-16.0) gm/dL Hct (34.0-46.0) % Plt Count (150-450) k/uL ABG pH (7.35-7.45) ABG pCO2 (35-45) mmHg ABG pO2 (83-108) mmHg ABG Total CO2 (19-24) mmol/L ABG O2 Saturation (94-97) % Potassium (3.5-5.1) mmol/L Chloride (98-107) mmol/L POC Glucose (mg/dL) 120 H 117 H 114 H (70-110) mg/dL Calcium (8.4-10.2) mg/dL AST (14-36) U/L ALT (4-34) U/L Alkaline Phosphatase (38-126) U/L Total Protein (6.3-8.2) g/dL Albumin (3.5-5.0) g/dL 03/03/23 03/03/23 03/03/23 Range/Units 15:46 16:07 17:09 RBC (3.80-5.40) m/uL Hgb (11.4-16.0) gm/dL Hct (34.0-46.0) % Plt Count (150-450) k/uL ABG pH (7.35-7.45) ABG pCO2 (35-45) mmHg ABG pO2 82 L (83-108) mmHg ABG Total CO2 26 H (19-24) mmol/L ABG O2 Saturation 97.8 H (94-97) % Potassium (3.5-5.1) mmol/L Chloride (98-107) mmol/L POC Glucose (mg/dL) 126 H 133 H (70-110) mg/dL Calcium (8.4-10.2) mg/dL AST (14-36) U/L ALT (4-34) U/L Alkaline Phosphatase (38-126) U/L Total Protein (6.3-8.2) g/dL Albumin (3.5-5.0) g/dL 03/03/23 03/03/23 03/03/23 Range/Units 18:08 20:59 21:48 RBC (3.80-5.40) m/uL Hgb (11.4-16.0) gm/dL Hct (34.0-46.0) % Plt Count (150-450) k/uL ABG pH (7.35-7.45) ABG pCO2 (35-45) mmHg ABG pO2 (83-108) mmHg ABG Total CO2 (19-24) mmol/L ABG O2 Saturation (94-97) % Potassium (3.5-5.1) mmol/L Chloride (98-107) mmol/L POC Glucose (mg/dL) 116 H 112 H 118 H (70-110) mg/dL Calcium (8.4-10.2) mg/dL AST (14-36) U/L ALT (4-34) U/L Alkaline Phosphatase (38-126) U/L Total Protein (6.3-8.2) g/dL Albumin (3.5-5.0) g/dL 03/03/23 03/04/23 03/04/23 Range/Units 22:58 00:03 00:49 RBC (3.80-5.40) m/uL Hgb (11.4-16.0) gm/dL Hct (34.0-46.0) % Plt Count (150-450) k/uL ABG pH (7.35-7.45) ABG pCO2 (35-45) mmHg ABG pO2 (83-108) mmHg ABG Total CO2 (19-24) mmol/L ABG O2 Saturation (94-97) % Potassium (3.5-5.1) mmol/L Chloride (98-107) mmol/L POC Glucose (mg/dL) 111 H 142 H 129 H (70-110) mg/dL Calcium (8.4-10.2) mg/dL AST (14-36) U/L ALT (4-34) U/L Alkaline Phosphatase (38-126) U/L Total Protein (6.3-8.2) g/dL Albumin (3.5-5.0) g/dL 03/04/23 03/04/23 03/04/23 Range/Units 01:46 02:46 04:22 RBC 2.50 L (3.80-5.40) m/uL Hgb 7.4 L (11.4-16.0) gm/dL Hct 22.0 L (34.0-46.0) % Plt Count 95 L (150-450) k/uL ABG pH (7.35-7.45) ABG pCO2 (35-45) mmHg ABG pO2 (83-108) mmHg ABG Total CO2 (19-24) mmol/L ABG O2 Saturation (94-97) % Potassium (3.5-5.1) mmol/L Chloride (98-107) mmol/L POC Glucose (mg/dL) 125 H 120 H (70-110) mg/dL Calcium (8.4-10.2) mg/dL AST (14-36) U/L ALT (4-34) U/L Alkaline Phosphatase (38-126) U/L Total Protein (6.3-8.2) g/dL Albumin (3.5-5.0) g/dL 03/04/23 03/04/23 03/04/23 Range/Units 04:22 05:57 06:08 RBC (3.80-5.40) m/uL Hgb (11.4-16.0) gm/dL Hct (34.0-46.0) % Plt Count (150-450) k/uL ABG pH 7.46 H (7.35-7.45) ABG pCO2 34 L (35-45) mmHg ABG pO2 (83-108) mmHg ABG Total CO2 25 H (19-24) mmol/L ABG O2 Saturation 99.1 H (94-97) % Potassium 3.4 L (3.5-5.1) mmol/L Chloride 109 H (98-107) mmol/L POC Glucose (mg/dL) 112 H (70-110) mg/dL Calcium 7.9 L (8.4-10.2) mg/dL AST 182 H (14-36) U/L ALT 122 H (4-34) U/L Alkaline Phosphatase 24 L (38-126) U/L Total Protein 4.5 L (6.3-8.2) g/dL Albumin 3.0 L (3.5-5.0) g/dL 03/04/23 03/04/23 03/04/23 Range/Units 06:58 08:17 10:16 RBC (3.80-5.40) m/uL Hgb (11.4-16.0) gm/dL Hct (34.0-46.0) % Plt Count (150-450) k/uL ABG pH (7.35-7.45) ABG pCO2 (35-45) mmHg ABG pO2 (83-108) mmHg ABG Total CO2 (19-24) mmol/L ABG O2 Saturation (94-97) % Potassium (3.5-5.1) mmol/L Chloride (98-107) mmol/L POC Glucose (mg/dL) 116 H 113 H 111 H (70-110) mg/dL Calcium (8.4-10.2) mg/dL AST (14-36) U/L ALT (4-34) U/L Alkaline Phosphatase (38-126) U/L Total Protein (6.3-8.2) g/dL Albumin (3.5-5.0) g/dL
[2023-03-04] MEDS: HYDROcodone/APAP 5-325MG 1 EACH TAB PO PRN (13:46)
[2023-03-04 13:59] LABS: Glucose,Whole Blood 117 mg/dL (70-110)
--- NOTE | 2023-03-04 15:22 | PN ---
PROGRESS NOTE SUBJECTIVE: Ms. Bolaños underwent aortocoronary bypass surgery because of left main and LAD disease. She had somewhat of a slow progression in terms of her recovery. She is still intubated. Weaning parameters were not optimal; therefore, she is back on the vent. She is more hemodynamically stable. She is on a combination of milrinone and dopamine, which are being continued. She is neurologically much better. She is following commands, moving all 4 extremities. OBJECTIVE: VITAL SIGNS: Stable. HEART: S1 and S2 heard normally. Short systolic murmur is audible at the left sternal border. LUNGS: Reveal bilateral air entry assisted with ventilator. ABDOMEN: Soft. EXTREMITIES: Lower extremities reveal diminished pulses. PLAN: To continue supportive caring, and weaning efforts are in progress. No new suggestions. MMODL / IJN: [id number] /
--- NOTE | 2023-03-04 15:40 | CT ---
EXAMINATION TYPE: CT brain wo con CT DLP: 1306.4 mGycm, Automated exposure control for dose reduction was used. DATE OF EXAM: 03/04/2023 3:33 PM COMPARISON: None. CLINICAL INDICATION:Female, 77 years old with history of encephalopathy, ams TECHNIQUE: Brain: Axial CT images of the brain were obtained with coronal and sagittal reformats created and rev iewed. Contrast used: None. Oral contrast used: None. FINDINGS: Brain: Extra-axial spaces: No abnormal extra-axial fluid collections. Ventricular system: Within normal limits Cerebral parenchyma: No acute intraparenchymal hemorrhage or mass effect. The adame-white junction is well differentiated. Cerebellum: Unremarkable. Mass effect: No evidence of midline shift. Intracranial vasculature: unremarkable Soft tissues: Normal. Calvarium/osseous structures: No depressed skull fracture. Paranasal sinuses and mastoid air cells: Mild scattered paranasal sinus disease. Visualized orbits: Bilaterally aphakia. Other: Intubation tubing in nasogastric tube partially visualized. IMPRESSION: No acute intracranial process.
[2023-03-04 15:54] LABS: Glucose,Whole Blood 127 mg/dL (70-110)
[2023-03-04] MEDS: DEXMEDETOMIDINE/0.9% NACL(PMX) 400 MCG in EMPTY BAG 1 BAG IV SCH (16:33)
[2023-03-04 18:16] LABS: Glucose,Whole Blood 127 mg/dL (70-110)
[2023-03-04 19:59] LABS: Glucose,Whole Blood 130 mg/dL (70-110)
[2023-03-04] MEDS: DEXTROSE/WATER 1 250ML.BAG with DOPamine DRIP 800 MG IV SCH (20:20)
[2023-03-04] MEDS: LATANOPROST 0.005% OPHTH DROPS 2.5 ML BTL BOTH EYES SCH (20:24)
[2023-03-04] MEDS: SENNOSIDES-DOCUSATE SODIUM 1 EACH TAB PO SCH (20:24)
[2023-03-04] MEDS: VESICARE 10 MG PO SCH ×3 (20:31→21:27)
[2023-03-04 21:01] LABS: Glucose,Whole Blood 136 mg/dL (70-110)
[2023-03-04 21:59] LABS: Glucose,Whole Blood 138 mg/dL (70-110)
[2023-03-04 23:09] LABS: Glucose,Whole Blood 155 mg/dL (70-110)
[2023-03-04] MEDS ORDERED: ALBUMIN HUMAN 5% 250 ML in EMPTY BAG 1 BAG IVPB STA (23:18)
[2023-03-04 23:53] LABS: Glucose,Whole Blood 172 mg/dL (70-110)
[2023-03-05 00:58] LABS: Glucose,Whole Blood 147 mg/dL (70-110)
[2023-03-05 02:05] LABS: Glucose,Whole Blood 140 mg/dL (70-110)
[2023-03-05 03:20] LABS: Glucose,Whole Blood 134 mg/dL (70-110)
[2023-03-05 04:00] LABS: Glucose,Whole Blood 131 mg/dL (70-110)
[2023-03-05 04:26] LABS: Basophils % (A) 0 %; Eosinophils % (A) 0 %; HCT 21.8 % (34.0-46.0); HGB 7.2 gm/dL (11.4-16.0); Lymphocytes # (A) 1.1 k/uL (1.0-4.8); Lymphocytes % (A) 11 %; MCH 28.8 pg (25.0-35.0); MCHC 33.2 g/dL (31.0-37.0); MCV 86.9 fL (80.0-100.0); Mean Platelet Volume 9.3; Monocytes # (A) 0.4 k/uL (0-1.0); Monocytes % (A) 4 %; Neutrophils # (A) 8.2 k/uL (1.3-7.7); Neutrophils % (A) 83 %; RDW 14.7 % (11.5-15.5)
[2023-03-05 04:32] LABS: Platelet Count 96 k/uL (150-450)
[2023-03-05] MEDS: HYDROcodone/APAP 5-325MG 1 EACH TAB PO PRN (04:47)
[2023-03-05 04:58] LABS: ALT 148 U/L (4-34); AST 137 U/L (14-36); African American GFR (CKD) >90 (>60 ml/min/1.73 sqM); Albumin 2.8 g/dL (3.5-5.0); Alkaline Phosphatase 40 U/L (38-126); Anion Gap 4 mmol/L; Blood Urea Nitrogen 11 mg/dL (7-17); Carbon Dioxide 25 mmol/L (22-30); Chloride 109 mmol/L (98-107); Glucose 120 mg/dL (74-99); Non-African American GFR(CKD) >90 (>60 ml/min/1.73 sqM); Potassium 3.6 mmol/L (3.5-5.1); Sodium 138 mmol/L (137-145); Total Bilirubin 0.6 mg/dL (0.2-1.3); Total Protein 4.6 g/dL (6.3-8.2)
[2023-03-05 05:06] LABS: Glucose,Whole Blood 130 mg/dL (70-110)
[2023-03-05] MEDS ORDERED: POTASSIUM BICARBONATE/CIT AC 20 MEQ TABLET.EFF NG-TUBE SCH (06:00)
[2023-03-05 06:06] LABS: Glucose,Whole Blood 125 mg/dL (70-110)
[2023-03-05 06:13] LABS: ABG Base Excess 1.8 mmol/L; ABG HCO3 25 mmol/L (21-25); ABG PCO2 30 mmHg (35-45); ABG PH 7.53 (7.35-7.45); ABG PO2 145 mmHg (83-108); ABG TCO2 26 mmol/L (19-24); Allen Test Performed? Yes
[2023-03-05 07:01] LABS: Glucose,Whole Blood 125 mg/dL (70-110)
[2023-03-05] MEDS: ALBUTEROL 90 MCG INHALATION SCH ×4 (08:12→21:08)
[2023-03-05] MEDS: ALBUTEROL NEBULIZED 2.5 MG/3 ML INHALATION SCH ×4 (08:12→21:07)
--- NOTE | 2023-03-05 08:22 | XR ---
EXAMINATION TYPE: XR chest 1V portable DATE OF EXAM: 03/05/2023 COMPARISON: 03/04/2023 INDICATION: Post cardiac surgery TECHNIQUE: Single frontal view of the chest is obtained. FINDINGS: The heart size is prominent. The pulmonary vasculature is normal. No suspicious focal consolidation is evident. Multiple lines and catheters are present. Endotracheal tube tip is above the alisson. Nasogastric tube transverses the thorax. Mediastinal tube is stable. Left-sided chest tube is present. Right-sided ch est tube is present. No pneumothorax is evident. IMPRESSION: 1. No acute pulmonary process. 2. Cardiomegaly. 3. Multiple lines and catheters.
--- NOTE | 2023-03-05 09:24 | P.PN ---
Subjective Progress Note Date: 03/05/23 Principal diagnosis: ICU/ventilator management. Coronary artery disease and mitral valve regurgitation This is a 77-year-old female with history of severe persistent bronchial asthma, former smoker quit in 1973, however looking back at her PFT in the office it was basically unremarkable and nonobstructive in nature. Nonetheless the patient has been experiencing over the last 3 years intermittent episodes of cough wheezing and shortness of breath, and has been requiring multiple courses of steroids, and at one point she was maintained on prednisone for her asthma by Dr. Swift. Patient also has multiple ALLERGIES and she cannot tolerate a lot of the inhalers as listed on her ALLERGY list. Patient was last admitted to the hospital and we saw on consultation on 01/12/2023, patient ended up on prednisone 10 mg daily and again very she inhalers that she can use at home. He goes of presumptive ALLERGY to inhalers. Patient was recently evaluated by Dr. Montes for her abnormal LV dysfunction ejection fraction of 35-40%, and she underwent a cardiac catheterization which showed demonstrated left main coronary artery disease due to this finding, the patient was referred to cardiothoracic surgery for surgical intervention, patient is being worked up for surgery, and part of the workup included a pulmonary consultation for preoperative clearance. Presently the patient denies any shortness of breath at rest, no cough no wheezing she does have chronic dyspnea on exertion. Again I reviewed her last PFT in the office and it was relatively normal based on this alone, I would clear the patient for surgery as scheduled, the benefits of surgery outweigh the risks The patient is seen today 03/01/2023 in follow-up on the cardiac floor. She is currently sitting up in bed. Awake and alert in no acute distress. No worsening shortness of breath, cough or congestion. Her asthma is currently inactive and stable. She is maintaining good O2 saturations in the upper 90s on room air. Afebrile. Hemodynamically stable. She is continued on her bronchodilators. Resumed on her prednisone. MARY from yesterday revealed moderate to severe mitral regurgitation and global hypokinesis with impaired left ventricular systolic function and ejection fraction 35%. Plan per CT services is for coronary revascularization and mitral valve repair possibly tomorrow. I'm seeing this patient today 03/03/2023 in follow-up post elective coronary artery bypass grafts 2 with a BRITO to LAD and saphenous vein graft to the OM 1, mitral valve repair with a #26 Physio II annuloplasty ring, and left atrial appendage ligation. Patient remains intubated after the procedure, with vent settings of assist control, respiratory rate 16, tidal volume 360, FiO2 40%, and PEEP of 5. The patient's postoperative ABG showed a pO2 of 159, pCO2 of 33, and pH of 7.47. Postoperative chest x-ray showed the endotracheal tube approximately 2 cm from the alisson, NG tube coursing below the diaphragm, a pulmonary artery catheter appropriately place, and some postoperative cardiac prosthesis and sternotomy wires. No obvious pneumothorax., On my evaluation, the patient's most recent CO/CI is 2.6 and 1.5 respectively. Patient's blood pressure is hypotensive with a mean arterial pressure of 58. PA pressures are 41/17. Heart rhythm is normal sinus at about 60 bpm. Patient reportedly r eceived a total of 750 ML's of 5% albumin. Currently, norepinephrine is infusing at 7.7 mics per minute, milrinone infusing at 0.375 mics per kilogram per minute, amiodarone is infusing at 0.5 mg/m due to some perioperative atrial fibrillation, and lactated Ringer's is infusing at 50 ML's per hour. Patient has a mediastinal and bilateral right and left pleural chest tubes. The mediastinal chest tube has put out 73 mL of serosanguineous output, and both right and left pleural chest tube sites are wide together and put out approximately 330 ML's of serosanguineous output. Most recent CBC done around 2100 shows a WBC count of 10, hemoglobin 8, hematocrit 24, platelets 100,000. INR 1.3. Patient's BMP at that time showed a sodium 141, potassium 3.9, chloride 110, serum CO2 25, BUN 7, creatinine 0.44, glucose 129. Insulin infusion is currently paused. Urine output is marginal at 20 mL per hour. We did attempt weaning trial on this patient with a pressure support of 8 and a CPAP of 5. Patient was still quite lethargic from sedation and only pulling tidal volumes of 100-200. For this reason, and the fact that the patient's hemodynamic status is marginal at this time, we will hold off on extubating. We will reassess patient's readiness to wean once more alert and able to cooperate with weaning trial. Progress note dated 03/04/2023. The patient is seen today in room 267. Yesterday, the patient had multiple weaning trials, and did very poorly on all of them. The patient is status post two-vessel bypass grafting, and mitral valve repair, as well as left atrial appendage ligation. Currently, the patient is on volume assist control, rate 16, tidal volume 360, FiO2 40%, and PEEP of 5. Blood gases show pO2 106, pCO2 34, pH is 7.46. The patient's getting lactated Ringer's at 30 mL an hour, insulin, is currently on hold, nitroglycerin running at 5 mcg/m, dopamine at 2 mcg/kg/m, and Primacor 0.375 mcg/kg/m. The patient had another weaning trial today, with 10 of pressure support and 5 of CPAP. Weaning parameters including a tidal volume of only 261 mL, respiratory rate of 36, rapid shallow breathing index of 161, minute ventilation of 10 L/m, vital capacity of 310 mL, negative inspiratory force of -24, and she did have a positive cuff leak. Because of the elevated R SBI, the patient which surely fail a trial of extubation, and therefore is not extubated this morning. White count 9.8, hemoglobin 7.4, hematocrit 22, platelet count 95,000. Sodium 139, potassium 3.4, chlorides 109, CO2 25, BUN 10, creatinine 0.59. AST was 182. ALT was 122. Albumin was 3.0. Chest x-ray show typical postoperative changes. There is some bibasilar atelectasis. Progress note dated 03/05/2023. The patient is seen today in room 267. The patient is postop day #3, status post two-vessel bypass grafting, and mitral valve repair. The patient has had multiple weaning attempts, but each time, she does very poorly, early on in the trial. She has high blood pressures, high respiratory rates, high heart rate, and very low tidal volumes. Yesterday, she was placed on pressure support of 10, CPAP of 5, and apparently initially did okay with that, but at 10:00 or so, she was found to have significant respiratory distress, despite being on pressure support of 16. She was placed back on phimosis control. Currently, she is on a rate of 16, tidal volume 360, FiO2 40%, PEEP of 5. But gases show pO2 145, pCO2 30, pH is 7.53. This blood gases consistent with both respiratory and metabolic alkalosis. The patient is receiving vital high protein at 20 mL an hour, with a goal of 50. In addition, the patient's on a number of vasoactive drugs including dopamine at 2 mcg/kg/m, Primacor 0.25 mcg/kg/m, insulin 3 units an hour and nitroglycerin at 25 mcg/m. In addition, the patient's getting saline at 30 mL an hour. White count 10, hemoglobin 7.2, hematocrit 21.8, and platelet count 96,000. Sodium 138, potassium 3.6, chlorides O9, CO2 25, BUN 11, creatinine 0.54. Albumin is 2.8. Chest x-ray shows evidence of cardiomegaly, but no acute process. Objective - Vital Signs Vital signs: Vital Signs Temp 98.1 F 03/05/23 04:00 Pulse 104 H 03/05/23 07:00 Resp 7 L 03/05/23 07:00 BP 108/56 03/04/23 11:00 Pulse Ox 100 03/05/23 07:00 FiO2 40 03/05/23 08:09 Intake & Output 03/04/23 03/05/23 03/05/23 18:59 06:59 18:59 Intake Total 9360.169 4343.036 64.125 Output Total 1000 620 30 Balance 44.422 753.036 34.125 Weight 86.1 kg 93.4 kg Intake: IV 668 888 39 0.9% @ 30 330 30 Albumin Human 5% 250 ml 250 In Empty Bag 1 bag @ 250 mls/hr IVPB Q1HR PRN Rx#: [id number] CO/CI 200 170 Lactated Ringers 1,000 ml 120 @ 50 mls/hr IV .Q20H [facility] Rx#:[id number] Sodium Chloride 0.9% 1, 240 30 000 ml @ 20 mls/hr IV . Q24H [facility] Rx#:[id number] pressure bags 108 108 9 Intake, IV Titration 116.422 125.036 5.125 Amount Insulin Regular 100 unit 1.397 22.086 In Sodium Chloride 0.9% 100 ml @ Per Protocol IV .Q0M [facility] Rx#:[id number] Milrinone-D5w Pmx 20 mg 98.4 In Dextrose/Water 1 100ml .bag @ 0.25 MCG/KG/MIN 5. 805 mls/hr IV .[id number] [facility] Rx#:[id number] Nitroglycerin-D5w Pmx 50 16.625 102.950 5.125 mg In Dextrose/Water 1 250ml.bag @ 5 MCG/MIN 1.5 mls/hr IV .Q24H [facility] Rx#: [id number] Tube Feeding 70 230 20 Other 190 130 Output: Chest Tube Drainage 450 230 Chest Tube Mediastinal 120 50 Right/Left Chest Tube 330 180 Urine 550 390 30 Other: Voiding Method Indwelling Catheter Indwelling Catheter ABP, PAP, CO, CI - Last Documented Arterial Blood Pressure 147/62 Pulmonary Artery Pressure 36/18 Cardiac Output 5.6 Cardiac Index 3.2 - Exam No acute distress, responsive, with an orally placed endotracheal tube and NG tube. HEENT examination is grossly unremarkable. Neck supple. Full range of motion. No adenopathy thyromegaly or neck vein distention. Cardiovascular examination reveals regular rhythm rate. S1-S2 normal. No S3 or S4. No discernible murmur noted. Heart sounds are distant. Heart rate 96 bpm. Lungs reveal scattered bilateral rhonchi. No wheezes or crackles. Breath sounds equal bilaterally. Saturations are excellent. Abdomen soft bowel sounds are heard. No masses or tenderness. Extremities are intact. No cyanosis clubbing or edema. Skin is without rash or lesion. Neurologic examination is difficult to assess at this time. - Labs CBC & Chem 7: 03/05/23 04:00 03/05/23 04:00 Labs: Abnormal Lab Results - Last 24 Hours (Table) 03/04/23 03/04/23 03/04/23 Range/Units 10:16 13:58 15:53 RBC (3.80-5.40) m/uL Hgb (11.4-16.0) gm/dL Hct (34.0-46.0) % Plt Count (150-450) k/uL Neutrophils # (1.3-7.7) k/uL ABG pH (7.35-7.45) ABG pCO2 (35-45) mmHg ABG pO2 (83-108) mmHg ABG Total CO2 (19-24) mmol/L ABG O2 Saturation (94-97) % Chloride (98-107) mmol/L Glucose (74-99) mg/dL POC Glucose (mg/dL) 111 H 117 H 127 H (70-110) mg/dL Calcium (8.4-10.2) mg/dL AST (14-36) U/L ALT (4-34) U/L Total Protein (6.3-8.2) g/dL Albumin (3.5-5.0) g/dL 03/04/23 03/04/23 03/04/23 Range/Units 18:15 19:58 21:00 RBC (3.80-5.40) m/uL Hgb (11.4-16.0) gm/dL Hct (34.0-46.0) % Plt Count (150-450) k/uL Neutrophils # (1.3-7.7) k/uL ABG pH (7.35-7.45) ABG pCO2 (35-45) mmHg ABG pO2 (83-108) mmHg ABG Total CO2 (19-24) mmol/L ABG O2 Saturation (94-97) % Chloride (98-107) mmol/L Glucose (74-99) mg/dL POC Glucose (mg/dL) 127 H 130 H 136 H (70-110) mg/dL Calcium (8.4-10.2) mg/dL AST (14-36) U/L ALT (4-34) U/L Total Protein (6.3-8.2) g/dL Albumin (3.5-5.0) g/dL 03/04/23 03/04/23 03/04/23 Range/Units 21:58 23:07 23:52 RBC (3.80-5.40) m/uL Hgb (11.4-16.0) gm/dL Hct (34.0-46.0) % Plt Count (150-450) k/uL Neutrophils # (1.3-7.7) k/uL ABG pH (7.35-7.45) ABG pCO2 (35-45) mmHg ABG pO2 (83-108) mmHg ABG Total CO2 (19-24) mmol/L ABG O2 Saturation (94-97) % Chloride (98-107) mmol/L Glucose (74-99) mg/dL POC Glucose (mg/dL) 138 H 155 H 172 H (70-110) mg/dL Calcium (8.4-10.2) mg/dL AST (14-36) U/L ALT (4-34) U/L Total Protein (6.3-8.2) g/dL Albumin (3.5-5.0) g/dL 03/05/23 03/05/23 03/05/23 Range/Units 00:57 02:04 03:20 RBC (3.80-5.40) m/uL Hgb (11.4-16.0) gm/dL Hct (34.0-46.0) % Plt Count (150-450) k/uL Neutrophils # (1.3-7.7) k/uL ABG pH (7.35-7.45) ABG pCO2 (35-45) mmHg ABG pO2 (83-108) mmHg ABG Total CO2 (19-24) mmol/L ABG O2 Saturation (94-97) % Chloride (98-107) mmol/L Glucose (74-99) mg/dL POC Glucose (mg/dL) 147 H 140 H 134 H (70-110) mg/dL Calcium (8.4-10.2) mg/dL AST (14-36) U/L ALT (4-34) U/L Total Protein (6.3-8.2) g/dL Albumin (3.5-5.0) g/dL 03/05/23 03/05/23 03/05/23 Range/Units 03:59 04:00 04:00 RBC 2.50 L (3.80-5.40) m/uL Hgb 7.2 L (11.4-16.0) gm/dL Hct 21.8 L (34.0-46.0) % Plt Count 96 L (150-450) k/uL Neutrophils # 8.2 H (1.3-7.7) k/uL ABG pH (7.35-7.45) ABG pCO2 (35-45) mmHg ABG pO2 (83-108) mmHg ABG Total CO2 (19-24) mmol/L ABG O2 Saturation (94-97) % Chloride 109 H (98-107) mmol/L Glucose 120 H (74-99) mg/dL POC Glucose (mg/dL) 131 H (70-110) mg/dL Calcium 8.0 L (8.4-10.2) mg/dL AST 137 H (14-36) U/L ALT 148 H (4-34) U/L Total Protein 4.6 L (6.3-8.2) g/dL Albumin 2.8 L (3.5-5.0) g/dL 03/05/23 03/05/23 03/05/23 Range/Units 05:04 06:05 06:10 RBC (3.80-5.40) m/uL Hgb (11.4-16.0) gm/dL Hct (34.0-46.0) % Plt Count (150-450) k/uL Neutrophils # (1.3-7.7) k/uL ABG pH 7.53 H (7.35-7.45) ABG pCO2 30 L (35-45) mmHg ABG pO2 145 H (83-108) mmHg ABG Total CO2 26 H (19-24) mmol/L ABG O2 Saturation 100.0 H (94-97) % Chloride (98-107) mmol/L Glucose (74-99) mg/dL POC Glucose (mg/dL) 130 H 125 H (70-110) mg/dL Calcium (8.4-10.2) mg/dL AST (14-36) U/L ALT (4-34) U/L Total Protein (6.3-8.2) g/dL Albumin (3.5-5.0) g/dL 03/05/23 Range/Units 06:59 RBC (3.80-5.40) m/uL Hgb (11.4-16.0) gm/dL Hct (34.0-46.0) % Plt Count (150-450) k/uL Neutrophils # (1.3-7.7) k/uL ABG pH (7.35-7.45) ABG pCO2 (35-45) mmHg ABG pO2 (83-108) mmHg ABG Total CO2 (19-24) mmol/L ABG O2 Saturation (94-97) % Chloride (98-107) mmol/L Glucose (74-99) mg/dL POC Glucose (mg/dL) 125 H (70-110) mg/dL Calcium (8.4-10.2) mg/dL AST (14-36) U/L ALT (4-34) U/L Total Protein (6.3-8.2) g/dL Albumin (3.5-5.0) g/dL Assessment and Plan Assessment: Postop day #3, status post two-vessel bypass grafting, mitral valve repair, and left atrial appendage ligation. Routine postoperative ventilator management, with failure to wean from mechanical ventilation, despite multiple attempts. History of CAD. Ischemic cardiomyopathy, with ejection fraction 35%. Moderate to severe mitral regurgitation. Severe persistent asthma. Previous tobacco dependence. Type 2 diabetes mellitus. Degenerative disc disease. Gastroesophageal reflux disease. Plan: Plan dated 03/04/2023. The patient was given another weaning trial this morning. She was placed on pressure support of 10, and CPAP of 5. Despite that, she had very poor weaning parameters, and we do very poorly of extubated. Her rapid shallow breathing index which is the best indicator of the patient's ability to breathe spontaneously, was 161. That number should be less than 105, and probably even less than 80. Nonetheless, the patient will continue on mechanical ventilation at this time. Continue to follow the patient. Labs, x-rays, medications are reviewed. The patient remains on a number drips including nitroglycerin, dopamine, and Primacor. Insulin is currently on hold. We will continue to follow make recommendations along the way. Plan dated 03/05/2023. The patient had to weaning trial yesterday, and failed miserably on both of them. This morning, we placed her back on pressure support, and she did very poorly. We'll try again later today. She just may need more time. She remains on many vasoactive drugs including dopamine, Primacor, and nitroglycerin. Labs, x-rays, and medications are reviewed. We will continue to follow the patient and make recommendations along the way. Prognosis is guarded. Today is postop day #3. Time with Patient: Greater than 30
[2023-03-05] MEDS ORDERED: METOPROLOL TARTRATE 12.5 MG TAB OG-TUBE STA (09:41)
[2023-03-05] MEDS ORDERED: POTASSIUM CHLORIDE ER 20 MEQ TAB.ER PO SCH (09:45)
[2023-03-05] MEDS: MILRINONE-D5W PMX 20 MG in DEXTROSE/WATER 1 100ML.BAG IV SCH (09:49)
[2023-03-05 10:25] LABS: Glucose,Whole Blood 104 mg/dL (70-110)
[2023-03-05] MEDS: HEPARIN SODIUM,PORCINE/PF 5,000 UNIT/0.5 ML SYRINGE SQ SCH ×2 (10:56→18:39)
[2023-03-05] MEDS: MULTIVITAMINS, THERA 1 EACH TAB PO SCH (10:56)
[2023-03-05] MEDS: ATORVASTATIN 40 MG TAB PO SCH (10:56)
[2023-03-05] MEDS: CLOPIDOGREL 75 MG TAB PO SCH (10:56)
[2023-03-05] MEDS: ASCORBIC ACID 500 MG TAB PO SCH (10:56)
[2023-03-05] MEDS: ASPIRIN 325 MG TAB PO SCH (10:56)
[2023-03-05] MEDS: PANTOPRAZOLE 40 MG/10 ML VIAL IVP SCH (10:57)
[2023-03-05] MEDS: HYDROCORTISONE SUCCINATE 100 MG/2 ML VIAL IV SCH ×2 (10:57→18:39)
[2023-03-05] MEDS: FUROSEMIDE 10 MG/ML 2 ML VIAL IV SCH ×2 (10:57→18:39)
[2023-03-05] MEDS: MUPIROCIN 2% OINT 22 GM TUBE TOPICAL SCH ×2 (10:58→21:27)
[2023-03-05] MEDS: SODIUM CHLORIDE 0.9% 1,000 ML IV SCH (10:59)
[2023-03-05] MEDS: POTASSIUM BICARBONATE/CIT AC 20 MEQ TABLET.EFF OG-TUBE SCH ×2 (11:08→21:03)
[2023-03-05] MEDS ORDERED: METOPROLOL TARTRATE 12.5 MG TAB PO STA (11:10)
[2023-03-05 13:07] LABS: Glucose,Whole Blood 135 mg/dL (70-110)
[2023-03-05] MEDS ORDERED: lisinopriL 5 MG TAB OG-TUBE SCH (13:35)
--- NOTE | 2023-03-05 14:20 | P.PN ---
Subjective Progress Note Date: 03/05/23 77-year-old patient with past medical history significant for coronary artery disease, history of diabetes mellitus, asthma, hyperlipidemia osteoarthritis history of cardiomyopathy presented to the emergency department and admitted for cardiomyopathy and ischemic workup. Patient was status post cardiac c atheterization and was noted to have multivessel coronary artery disease and was referred to cardiothoracic surgery for surgical intervention. * Patient been worked up for CABG and seen by multiple specialties including pulmonary medicine, internal medicine consulted as well for medical management * Patient underwent elective coronary artery bypass grafts 2 with a BRITO to LAD and saphenous vein graft to the OM 1, mitral valve repair with a #26 Physio II annuloplasty ring, and left atrial appendage ligation * 03/05. Patient currently intubated, patient opening eyes, following commands. Patient has had multiple weaning attempt that failed. ICU following REVIEW OF SYSTEMS: Cannot be obtained as patient is currently intubated PHYSICAL EXAMINATION: GENERAL: Currently intubated, chest tubes seen HEENT: Pupils are round and equally reacting to light. EOMI. No scleral icterus. No conjunctival pallor. Normocephalic, atraumatic. No pharyngeal erythema. No thyromegaly. CARDIOVASCULAR: S1 and S2 present. No murmurs, rubs, or gallops. PULMONARY: Chest is clear to auscultation, no wheezing or crackles. ABDOMEN: Soft, nontender, nondistended, normoactive bowel sounds. No palpable organomegaly. MUSCULOSKELETAL: No joint swelling or deformity. EXTREMITIES: No cyanosis, clubbing, or pedal edema. NEUROLOGICAL: Gross neurological examination did not reveal any focal deficits. SKIN: No rashes. Assessment and plan Coronary artery disease with left main disease status post CABG Ischemic cardiomyopathy and LV dysfunction with ejection fraction of 35-40% based on transthoracic echo from 09/2022 mitral regurgitation Acute respiratory failure requiring intubation and mechanical ventilation Postoperative anemia Severe persistent asthma Type 2 diabetes Degenerative disc disease GERD without esophagitis Plan Monitor vital signs Monitor CBC Monitor CMP Continue telemetry monitoring Continue vent management per ICU Continue postoperative care per CT surgery team Internal medicine team will follow along postoperatively patient in ICU POST CABG Objective - Vital Signs Vital signs: Vital Signs Temp 98.1 F 03/05/23 04:00 Pulse 104 H 03/05/23 07:00 Resp 7 L 03/05/23 07:00 BP 108/56 03/04/23 11:00 Pulse Ox 100 03/05/23 07:00 FiO2 40 03/05/23 08:09 Intake & Output 03/04/23 03/05/23 03/05/23 18:59 06:59 18:59 Intake Total 3147.424 5375.036 64.125 Output Total 1000 620 30 Balance 44.422 753.036 34.125 Weight 86.1 kg 93.4 kg Intake: IV 668 888 39 0.9% @ 30 330 30 Albumin Human 5% 250 ml 250 In Empty Bag 1 bag @ 250 mls/hr IVPB Q1HR PRN Rx#: [id number] CO/CI 200 170 Lactated Ringers 1,000 ml 120 @ 50 mls/hr IV .Q20H [facility] Rx#:[id number] Sodium Chloride 0.9% 1, 240 30 000 ml @ 20 mls/hr IV . Q24H [facility] Rx#:[id number] pressure bags 108 108 9 Intake, IV Titration 116.422 125.036 5.125 Amount Insulin Regular 100 unit 1.397 22.086 In Sodium Chloride 0.9% 100 ml @ Per Protocol IV .Q0M [facility] Rx#:[id number] Milrinone-D5w Pmx 20 mg 98.4 In Dextrose/Water 1 100ml .bag @ 0.25 MCG/KG/MIN 5. 805 mls/hr IV .[id number] [facility] Rx#:[id number] Nitroglycerin-D5w Pmx 50 16.625 102.950 5.125 mg In Dextrose/Water 1 250ml.bag @ 5 MCG/MIN 1.5 mls/hr IV .Q24H [facility] Rx#: [id number] Tube Feeding 70 230 20 Other 190 130 Output: Chest Tube Drainage 450 230 Chest Tube Mediastinal 120 50 Right/Left Chest Tube 330 180 Urine 550 390 30 Other: Voiding Method Indwelling Catheter Indwelling Catheter ABP, PAP, CO, CI - Last Documented Arterial Blood Pressure 147/62 Pulmonary Artery Pressure 36/18 Cardiac Output 5.6 Cardiac Index 3.2 - Labs CBC & Chem 7: 03/05/23 04:00 03/05/23 04:00 Labs: Abnormal Lab Results - Last 24 Hours (Table) 03/04/23 03/04/23 03/04/23 Range/Units 10:16 13:58 15:53 RBC (3.80-5.40) m/uL Hgb (11.4-16.0) gm/dL Hct (34.0-46.0) % Plt Count (150-450) k/uL Neutrophils # (1.3-7.7) k/uL ABG pH (7.35-7.45) ABG pCO2 (35-45) mmHg ABG pO2 (83-108) mmHg ABG Total CO2 (19-24) mmol/L ABG O2 Saturation (94-97) % Chloride (98-107) mmol/L Glucose (74-99) mg/dL POC Glucose (mg/dL) 111 H 117 H 127 H (70-110) mg/dL Calcium (8.4-10.2) mg/dL AST (14-36) U/L ALT (4-34) U/L Total Protein (6.3-8.2) g/dL Albumin (3.5-5.0) g/dL 03/04/23 03/04/23 03/04/23 Range/Units 18:15 19:58 21:00 RBC (3.80-5.40) m/uL Hgb (11.4-16.0) gm/dL Hct (34.0-46.0) % Plt Count (150-450) k/uL Neutrophils # (1.3-7.7) k/uL ABG pH (7.35-7.45) ABG pCO2 (35-45) mmHg ABG pO2 (83-108) mmHg ABG Total CO2 (19-24) mmol/L ABG O2 Saturation (94-97) % Chloride (98-107) mmol/L Glucose (74-99) mg/dL POC Glucose (mg/dL) 127 H 130 H 136 H (70-110) mg/dL Calcium (8.4-10.2) mg/dL AST (14-36) U/L ALT (4-34) U/L Total Protein (6.3-8.2) g/dL Albumin (3.5-5.0) g/dL 03/04/23 03/04/23 03/04/23 Range/Units 21:58 23:07 23:52 RBC (3.80-5.40) m/uL Hgb (11.4-16.0) gm/dL Hct (34.0-46.0) % Plt Count (150-450) k/uL Neutrophils # (1.3-7.7) k/uL ABG pH (7.35-7.45) ABG pCO2 (35-45) mmHg ABG pO2 (83-108) mmHg ABG Total CO2 (19-24) mmol/L ABG O2 Saturation (94-97) % Chloride (98-107) mmol/L Glucose (74-99) mg/dL POC Glucose (mg/dL) 138 H 155 H 172 H (70-110) mg/dL Calcium (8.4-10.2) mg/dL AST (14-36) U/L ALT (4-34) U/L Total Protein (6.3-8.2) g/dL Albumin (3.5-5.0) g/dL 03/05/23 03/05/23 03/05/23 Range/Units 00:57 02:04 03:20 RBC (3.80-5.40) m/uL Hgb (11.4-16.0) gm/dL Hct (34.0-46.0) % Plt Count (150-450) k/uL Neutrophils # (1.3-7.7) k/uL ABG pH (7.35-7.45) ABG pCO2 (35-45) mmHg ABG pO2 (83-108) mmHg ABG Total CO2 (19-24) mmol/L ABG O2 Saturation (94-97) % Chloride (98-107) mmol/L Glucose (74-99) mg/dL POC Glucose (mg/dL) 147 H 140 H 134 H (70-110) mg/dL Calcium (8.4-10.2) mg/dL AST (14-36) U/L ALT (4-34) U/L Total Protein (6.3-8.2) g/dL Albumin (3.5-5.0) g/dL 03/05/23 03/05/23 03/05/23 Range/Units 03:59 04:00 04:00 RBC 2.50 L (3.80-5.40) m/uL Hgb 7.2 L (11.4-16.0) gm/dL Hct 21.8 L (34.0-46.0) % Plt Count 96 L (150-450) k/uL Neutrophils # 8.2 H (1.3-7.7) k/uL ABG pH (7.35-7.45) ABG pCO2 (35-45) mmHg ABG pO2 (83-108) mmHg ABG Total CO2 (19-24) mmol/L ABG O2 Saturation (94-97) % Chloride 109 H (98-107) mmol/L Glucose 120 H (74-99) mg/dL POC Glucose (mg/dL) 131 H (70-110) mg/dL Calcium 8.0 L (8.4-10.2) mg/dL AST 137 H (14-36) U/L ALT 148 H (4-34) U/L Total Protein 4.6 L (6.3-8.2) g/dL Albumin 2.8 L (3.5-5.0) g/dL 03/05/23 03/05/23 03/05/23 Range/Units 05:04 06:05 06:10 RBC (3.80-5.40) m/uL Hgb (11.4-16.0) gm/dL Hct (34.0-46.0) % Plt Count (150-450) k/uL Neutrophils # (1.3-7.7) k/uL ABG pH 7.53 H (7.35-7.45) ABG pCO2 30 L (35-45) mmHg ABG pO2 145 H (83-108) mmHg ABG Total CO2 26 H (19-24) mmol/L ABG O2 Saturation 100.0 H (94-97) % Chloride (98-107) mmol/L Glucose (74-99) mg/dL POC Glucose (mg/dL) 130 H 125 H (70-110) mg/dL Calcium (8.4-10.2) mg/dL AST (14-36) U/L ALT (4-34) U/L Total Protein (6.3-8.2) g/dL Albumin (3.5-5.0) g/dL 03/05/23 Range/Units 06:59 RBC (3.80-5.40) m/uL Hgb (11.4-16.0) gm/dL Hct (34.0-46.0) % Plt Count (150-450) k/uL Neutrophils # (1.3-7.7) k/uL ABG pH (7.35-7.45) ABG pCO2 (35-45) mmHg ABG pO2 (83-108) mmHg ABG Total CO2 (19-24) mmol/L ABG O2 Saturation (94-97) % Chloride (98-107) mmol/L Glucose (74-99) mg/dL POC Glucose (mg/dL) 125 H (70-110) mg/dL Calcium (8.4-10.2) mg/dL AST (14-36) U/L ALT (4-34) U/L Total Protein (6.3-8.2) g/dL Albumin (3.5-5.0) g/dL
[2023-03-05] MEDS: LOSARTAN 25 MG TAB PO SCH (14:53)
[2023-03-05 14:59] LABS: Glucose,Whole Blood 138 mg/dL (70-110)
--- NOTE | 2023-03-05 15:03 | P.PN ---
Subjective Progress Note Date: 03/05/23 Principal diagnosis: Coronary artery disease with left main disease. History of hyperlipidemia, cardiomyopathy with decreased systolic function, moderate eccentric mitral regurgitation, asthma with multiple exacerbations, diabetes mellitus type 2, previous tobacco dependence, GERD, osteoarthritis, covid infection in September 2022. POD #3 coronary artery bypass grafting 2 with left internal thoracic artery to left anterior descending coronary artery, a reverse saphenous vein graft from the aorta to the obtuse marginal coronary artery 1, left atrial appendage ligation with a 35 mm Atriclip, mitral valve repair with a #26 physio-2 annuloplasty ring, endoscopic left greater saphenous vein harvest, graft flow measurements using the [employer] flow measurement system, insertion of right common femoral arterial line, intraoperative transesophageal echocardiogram. Postoperative acute blood loss anemia, expected given cardiopulmonary bypass and hemodilution Prolonged mechanical ventilation, expected given the patient's severe restrictive lung disease Hypotension requiring pressor use The patient was seen and examined in follow-up today at her bedside in the [facility] unit. She remains intubated with mechanical ventilator support, continues to be off all sedation and is following verbal commands moving all extremities and shaking her head yes and no appropriately to yes and no questions. Bedside telemetry showing sinus tachycardia heart rate 105 BPM. Right IJ cordis remains in place with [place] catheter, current hemodynamic showing a cardiac output 5.6, cardiac index 3.2, PA pressure 34/20, CVP 15 mmHg. Dopamine drip remains infusing at 2 mcg/kg/m, milrinone remains infusing at 0.25 mcg/kg/m and nitroglycerin drip remains infusing at 25 mcg/m. Mediastinal, right, and left pleural chest tubes remain in place to low continuous wall suction -20 cm H2O. No air leaks present, draining thin serosanguineous drainage. Chest x-ray and labs reviewed. Computed tomography scan of the brain without contrast was completed yesterday which showed no acute intracranial process. Objective - Vital Signs Vital signs: Vital Signs Temp 98.9 F 03/05/23 08:00 Pulse 108 H 03/05/23 10:45 Resp 0 L 03/05/23 10:45 BP 108/56 03/04/23 11:00 Pulse Ox 100 03/05/23 10:45 FiO2 40 03/05/23 11:10 Intake & Output 0403/05/23 03/05/23 18:59 06:59 18:59 Intake Total 3891.837 7525.036 432.487 Output Total 1000 620 375 Balance 44.422 753.036 57.487 Weight 86.1 kg 93.4 kg Intake: IV 668 888 176 0.9% @ 30 330 120 Albumin Human 5% 250 ml 250 In Empty Bag 1 bag @ 250 mls/hr IVPB Q1HR PRN Rx#: [id number] CO/CI 200 170 20 Lactated Ringers 1,000 ml 120 @ 50 mls/hr IV .Q20H ANURAG Rx#:[id number] Sodium Chloride 0.9% 1, 240 30 000 ml @ 20 mls/hr IV . Q24H ANURAG Rx#:[id number] pressure bags 108 108 36 Intake, IV Titration 116.422 125.036 126.487 Amount Insulin Regular 100 unit 1.397 22.086 21.362 In Sodium Chloride 0.9% 100 ml @ Per Protocol IV .Q0M ANURAG Rx#:[id number] Milrinone-D5w Pmx 20 mg 98.4 100 In Dextrose/Water 1 100ml .bag @ 0.125 MCG/KG/MIN 2 .903 mls/hr IV .Q24H ANURAG Rx#:[id number] Nitroglycerin-D5w Pmx 50 16.625 102.950 5.125 mg In Dextrose/Water 1 250ml.bag @ 5 MCG/MIN 1.5 mls/hr IV .Q24H ANURAG Rx#: [id number] Tube Feeding 70 230 100 Other 190 130 30 Output: Chest Tube Drainage 450 230 100 Chest Tube Mediastinal 120 50 20 Right/Left Chest Tube 330 180 80 Urine 550 390 275 Other: Voiding Method Indwelling Catheter Indwelling Catheter ABP, PAP, CO, CI - Last Documented Arterial Blood Pressure 171/72 Pulmonary Artery Pressure 39/20 Cardiac Output 4.4 Cardiac Index 2.5 - Exam CONSTITUTIONAL: Lying in bed in the intensive care unit, remains intubated with mechanical ventilator support, appears comfortable, cooperative. HEENT: Neck is supple, no JVD, no lymphadenopathy. Right IJ Cordis and [place]ay[place] z catheter in place and functioning. RESPIRATORY: Lungs sounds essentially clear throughout, diminished to his bilateral bases. Respirations are symmetrical and nonlabored with mechanical ventilator support. Currently on assist control 16, TV 360, FiO2 30% and a PEEP of 5 with oxygen saturations 100%. Strong cough. CARDIOVASCULAR: Regular rhythm and tachycardic rate. S1 and S2 present, negat edmond for S3, gallop or murmur. Sternum is stable. Palpable peripheral pulses bilaterally, +1 edema to her bilateral upper extremities. No calf pain or tenderness noted. Heart hugger in place. Knee-high SHUKRI hose and sequential compression devices in place to his bilateral lower extremities. GASTROINTESTINAL: Abdomen soft, nontender, nondistended. Active bowel sounds present 4 quadrants. OG tube in place with vital high-protein to feeding infusing at 20 mL per hour, goal rate is 50 mL per hour. No guarding or rigidity. GENITOURINARY: Pardo present draining clear, yellow urine. Urine output 220 mL in the last 8 hours. INTEGUMENTARY: Skin is warm and dry with no evidence of clubbing or cyanosis. Midline sternal incision covered with dry intact prevena dressing. Left lower extremity EVH sites well approximated without redness or drainage. NEUROLOGIC: Unable to fully assess at this time as the patient remains intubated with mechanical ventilator support. Patient does follow some verbal commands. MUSKULOSKELETAL: Able to move all extremities. PSYCHIATRIC: Unable to fully assess at this time as the patient remains intubated with mechanical ventilator support. INVASIVE LINES AND TUBES: Mediastinal/left and right pleural chest tubes present and connected to low continuous wall suction, no air leaks present. Mediastinal tube with 40 mL of thin serosanguineous drainage overnight, 140 mL output in the last 24 hours. Left and right pleural chest tube with 150 mL of t hin serosanguineous drainage overnight, 500 mL output in the last 24 hours. Atrial and ventricular epicardial pacemaker wires present, connected to generator, VVI rate 50 bpm. Right internal jugular [place]/Cordis, right radial arterial line present. Last CO 5.6, CI 3.2, PA 34/ 20 and CVP 15 mmHg. - Allied health notes Allied health notes reviewed: nursing - Labs CBC & Chem 7: 03/05/23 04:00 03/05/23 04:00 Labs: Abnormal Lab Results - Last 24 Hours (Table) 03/04/23 03/04/23 03/04/23 Range/Units 13:58 15:53 18:15 RBC (3.80-5.40) m/uL Hgb (11.4-16.0) gm/dL Hct (34.0-46.0) % Plt Count (150-450) k/uL Neutrophils # (1.3-7.7) k/uL ABG pH (7.35-7.45) ABG pCO2 (35-45) mmHg ABG pO2 (83-108) mmHg ABG Total CO2 (19-24) mmol/L ABG O2 Saturation (94-97) % Chloride (98-107) mmol/L Glucose (74-99) mg/dL POC Glucose (mg/dL) 117 H 127 H 127 H (70-110) mg/dL Calcium (8.4-10.2) mg/dL AST (14-36) U/L ALT (4-34) U/L Total Protein (6.3-8.2) g/dL Albumin (3.5-5.0) g/dL 03/04/23 03/04/23 03/04/23 Range/Units 19:58 21:00 21:58 RBC (3.80-5.40) m/uL Hgb (11.4-16.0) gm/dL Hct (34.0-46.0) % Plt Count (150-450) k/uL Neutrophils # (1.3-7.7) k/uL ABG pH (7.35-7.45) ABG pCO2 (35-45) mmHg ABG pO2 (83-108) mmHg ABG Total CO2 (19-24) mmol/L ABG O2 Saturation (94-97) % Chloride (98-107) mmol/L Glucose (74-99) mg/dL POC Glucose (mg/dL) 130 H 136 H 138 H (70-110) mg/dL Calcium (8.4-10.2) mg/dL AST (14-36) U/L ALT (4-34) U/L Total Protein (6.3-8.2) g/dL Albumin (3.5-5.0) g/dL 03/04/23 03/04/23 03/05/23 Range/Units 23:07 23:52 00:57 RBC (3.80-5.40) m/uL Hgb (11.4-16.0) gm/dL Hct (34.0-46.0) % Plt Count (150-450) k/uL Neutrophils # (1.3-7.7) k/uL ABG pH (7.35-7.45) ABG pCO2 (35-45) mmHg ABG pO2 (83-108) mmHg ABG Total CO2 (19-24) mmol/L ABG O2 Saturation (94-97) % Chloride (98-107) mmol/L Glucose (74-99) mg/dL POC Glucose (mg/dL) 155 H 172 H 147 H (70-110) mg/dL Calcium (8.4-10.2) mg/dL AST (14-36) U/L ALT (4-34) U/L Total Protein (6.3-8.2) g/dL Albumin (3.5-5.0) g/dL 03/05/23 03/05/23 03/05/23 Range/Units 02:04 03:20 03:59 RBC (3.80-5.40) m/uL Hgb (11.4-16.0) gm/dL Hct (34.0-46.0) % Plt Count (150-450) k/uL Neutrophils # (1.3-7.7) k/uL ABG pH (7.35-7.45) ABG pCO2 (35-45) mmHg ABG pO2 (83-108) mmHg ABG Total CO2 (19-24) mmol/L ABG O2 Saturation (94-97) % Chloride (98-107) mmol/L Glucose (74-99) mg/dL POC Glucose (mg/dL) 140 H 134 H 131 H (70-110) mg/dL Calcium (8.4-10.2) mg/dL AST (14-36) U/L ALT (4-34) U/L Total Protein (6.3-8.2) g/dL Albumin (3.5-5.0) g/dL 03/05/23 03/05/23 03/05/23 Range/Units 04:00 04:00 05:04 RBC 2.50 L (3.80-5.40) m/uL Hgb 7.2 L (11.4-16.0) gm/dL Hct 21.8 L (34.0-46.0) % Plt Count 96 L (150-450) k/uL Neutrophils # 8.2 H (1.3-7.7) k/uL ABG pH (7.35-7.45) ABG pCO2 (35-45) mmHg ABG pO2 (83-108) mmHg ABG Total CO2 (19-24) mmol/L ABG O2 Saturation (94-97) % Chloride 109 H (98-107) mmol/L Glucose 120 H (74-99) mg/dL POC Glucose (mg/dL) 130 H (70-110) mg/dL Calcium 8.0 L (8.4-10.2) mg/dL AST 137 H (14-36) U/L ALT 148 H (4-34) U/L Total Protein 4.6 L (6.3-8.2) g/dL Albumin 2.8 L (3.5-5.0) g/dL 03/05/23 03/05/23 03/05/23 Range/Units 06:05 06:10 06:59 RBC (3.80-5.40) m/uL Hgb (11.4-16.0) gm/dL Hct (34.0-46.0) % Plt Count (150-450) k/uL Neutrophils # (1.3-7.7) k/uL ABG pH 7.53 H (7.35-7.45) ABG pCO2 30 L (35-45) mmHg ABG pO2 145 H (83-108) mmHg ABG Total CO2 26 H (19-24) mmol/L ABG O2 Saturation 100.0 H (94-97) % Chloride (98-107) mmol/L Glucose (74-99) mg/dL POC Glucose (mg/dL) 125 H 125 H (70-110) mg/dL Calcium (8.4-10.2) mg/dL AST (14-36) U/L ALT (4-34) U/L Total Protein (6.3-8.2) g/dL Albumin (3.5-5.0) g/dL - Imaging and Cardiology Chest x-ray: report reviewed, image reviewed Assessment and Plan Assessment: Coronary artery disease with left main disease, status post coronary artery bypass grafting 2 vessels Severe mitral valve regurgitation, status post mitral valve repair with a #26 physio-2 annuloplasty ring Severe restrictive lung disease with asthma on chronic steroids, preoperative FEV1 42% of predicted value Cardiomyopathy/chronic systolic heart failure with decreased systolic function, ejection fraction 35% on MARY 02/28/2023 History of hypertension Hyperlipidemia,treated, cholesterol 148, LDL 51, triglycerides 201 Diabetes mellitus type 2, with a preoperative hemoglobin A1c 6.9% Previous history of tobacco dependence GERD Osteoarthritis COVID-19 infection in September 2022 Postoperative acute blood loss anemia, expected given hemodilution and cardiopulmonary bypass Hypotension requiring pressors Prolonged mechanical ventilation, expected Plan: Continue to maximize medical therapy with aspirin, statin, Plavix, and beta analisa with hold parameters. Will increase metoprolol tartrate 25 mg by mouth twice a day. Decrease Primacor drip to 0.125 mcg/kg/m Mechanical ventilator management per pulmonology for/critical care recommendations. Once extubated encourage incentive spirometry 10 times every hour while awake. Bronchodilators per pulmonology. Will monitor daily labs and chest x-rays. Electrolyte replacement per protocol. GI/DVT prophylaxis. Pain control with current medication regimen. Once the patient is extubated increase activity, ambulate as tolerated, PT/OT/ca rdiac rehab consulted. Insulin management per internal medicine service. Patient is diabetic with h emoglobin A1c 6.9%. Continue left/right pleural chest tubes for another 24 hours. We will remove he r mediastinal chest tube. Continue Pardo catheter for another 24 hours for strict accurate intake and output. Daily weights Keep right IJ [place] catheter, continue to monitor hemodynamics. Keep dopamine drip at 2 mcg/kg/m. Wean nitroglycerin drip for afterload reduction, start Cozaar 25 mg by mouth daily for afterload reduction. Keep atrial and ventricular epicardial pacemaker wires in place and connected to back up his maker generator on a VVI 50. Start Lasix 20 mg IV every 8 hours and potassium 20 mEq by mouth twice a day while on Lasix. Increase tube feeding vital high-protein to goal rate of 50 mL per hour. More recommendations to follow based on patient's clinical course. Time with Patient: Greater than 30
[2023-03-05 15:58] LABS: Glucose,Whole Blood 138 mg/dL (70-110)
[2023-03-05 16:55] LABS: ABG Base Excess 1.2 mmol/L; ABG HCO3 25 mmol/L (21-25); ABG Oxygen Saturation 98.7 % (94-97); ABG PCO2 32 mmHg (35-45); ABG PH 7.49 (7.35-7.45); ABG PO2 89 mmHg (83-108); ABG TCO2 26 mmol/L (19-24)
[2023-03-05 16:59] LABS: Allen Test Performed? no
[2023-03-05] MEDS: NITROGLYCERIN-D5W PMX 50 MG in DEXTROSE/WATER 1 250ML.BAG IV SCH (17:42)
[2023-03-05 17:53] LABS: Glucose,Whole Blood 112 mg/dL (70-110)
--- NOTE | 2023-03-05 17:53 | PN ---
PROGRESS NOTE SUBJECTIVE: Ms. Bolaños is still on a ventilator. Yesterday, she had an episode of accelerated hypertension while she was being attempted to wean. She received Precedex. Now, she is resting comfortably on a vent. She is off most of the pressors at this time. She is on a small dose of Levophed. She is still on a ventilator, weaning efforts in progress. Neurologically, she seems to be okay. CAT scan did not reveal any significant abnormalities to suggest an acute stroke or any abnormality. The patient was moving all 4 extremities yesterday. OBJECTIVE: Revealed VITAL SIGNS: Stable. HEART: S1 and S2 heard normally. Short systolic murmur. LUNGS: Reveal bilateral respirator-assisted breath sounds. ABDOMEN: Soft. EXTREMITIES: Lower extremities reveal diminished pulses. CENTRAL NERVOUS SYSTEM: Assessment was not performed. PLAN: To continue supportive care and weaning efforts in progress. MMODL / IJN: [id number] /
[2023-03-05] MEDS: DEXMEDETOMIDINE/0.9% NACL(PMX) 400 MCG in EMPTY BAG 1 BAG IV SCH (18:06)
[2023-03-05] MEDS: hydrALAZINE HCL 20 MG/ML 1 ML VIAL IVP PRN (20:41)
[2023-03-05] MEDS: METOPROLOL TARTRATE 25 MG TAB PO SCH (21:03)
[2023-03-05] MEDS: SENNOSIDES-DOCUSATE SODIUM 1 EACH TAB PO SCH (21:03)
[2023-03-05 21:08] LABS: Glucose,Whole Blood 140 mg/dL (70-110)
[2023-03-05] MEDS: LATANOPROST 0.005% OPHTH DROPS 2.5 ML BTL BOTH EYES SCH (21:27)
[2023-03-05] MEDS ORDERED: ALBUMIN HUMAN 5% 250 ML in EMPTY BAG 1 BAG IVPB ONE (22:04)
[2023-03-05 22:15] LABS: Glucose,Whole Blood 124 mg/dL (70-110)
[2023-03-05 22:59] LABS: Glucose,Whole Blood 127 mg/dL (70-110)
[2023-03-06 00:17] LABS: Glucose,Whole Blood 121 mg/dL (70-110)
[2023-03-06] MEDS: FUROSEMIDE 10 MG/ML 2 ML VIAL IV SCH ×3 (00:24→20:48)
[2023-03-06] MEDS: HYDROCORTISONE SUCCINATE 100 MG/2 ML VIAL IV SCH ×3 (00:26→20:48)
[2023-03-06] MEDS: HEPARIN SODIUM,PORCINE/PF 5,000 UNIT/0.5 ML SYRINGE SQ SCH ×4 (00:26→23:56)
[2023-03-06 01:08] LABS: Glucose,Whole Blood 115 mg/dL (70-110)
[2023-03-06 02:08] LABS: Glucose,Whole Blood 121 mg/dL (70-110)
[2023-03-06 03:12] LABS: Glucose,Whole Blood 119 mg/dL (70-110)
[2023-03-06 04:15] LABS: Glucose,Whole Blood 123 mg/dL (70-110)
[2023-03-06 04:24] LABS: Basophils % (A) 0 %; Eosinophils % (A) 0 %; HCT 23.2 % (34.0-46.0); HGB 7.7 gm/dL (11.4-16.0); Lymphocytes # (A) 1.3 k/uL (1.0-4.8); Lymphocytes % (A) 14 %; MCH 29.4 pg (25.0-35.0); MCHC 33.3 g/dL (31.0-37.0); MCV 88.4 fL (80.0-100.0); Mean Platelet Volume 10.5; Monocytes # (A) 0.4 k/uL (0-1.0); Monocytes % (A) 4 %; Neutrophils # (A) 7.5 k/uL (1.3-7.7); Neutrophils % (A) 80 %; Platelet Count 106 k/uL (150-450); RBC 2.63 m/uL (3.80-5.40); RDW 14.7 % (11.5-15.5); WBC 9.3 k/uL (3.8-10.6)
[2023-03-06] MEDS ORDERED: ALBUMIN HUMAN 5% 250 ML in EMPTY BAG 1 BAG IVPB ONE (04:54)
[2023-03-06 05:44] LABS: African American GFR (CKD) >90 (>60 ml/min/1.73 sqM); Anion Gap 4 mmol/L; Blood Urea Nitrogen 13 mg/dL (7-17); Calcium 7.9 mg/dL (8.4-10.2); Carbon Dioxide 26 mmol/L (22-30); Chloride 109 mmol/L (98-107); Glucose 116 mg/dL (74-99); Non-African American GFR(CKD) 89 (>60 ml/min/1.73 sqM); Potassium 3.5 mmol/L (3.5-5.1); Sodium 139 mmol/L (137-145)
[2023-03-06 06:02] LABS: Glucose,Whole Blood 125 mg/dL (70-110)
[2023-03-06] MEDS: hydrALAZINE HCL 20 MG/ML 1 ML VIAL IVP PRN ×2 (06:18→09:06)
[2023-03-06 06:58] LABS: Glucose,Whole Blood 120 mg/dL (70-110)
[2023-03-06] MEDS ORDERED: ACETAMINOPHEN TAB 325 MG TAB PO PRN (07:23)
--- NOTE | 2023-03-06 07:40 | XR ---
EXAMINATION TYPE: XR chest 1V portable DATE OF EXAM: 03/06/2023 6:26 AM COMPARISON: Chest radiograph from one day prior. TECHNIQUE: XR chest 1V portable Frontal view of the chest. CLINICAL INDICATION:Female, 77 years old with history of Chest tube placement; FINDINGS: Lungs/Pleura: Left basilar atelectasis. There is no evidence of pleural effusion, focal consolidation , or pneumothorax. Pulmonary vascularity: Unremarkable. Heart/mediastinum: Cardiomediastinal silhouette is enlarged and stable. Post valve repair changes. L eft atrial appendage occlusion device is present. Musculoskeletal: No acute osseous pathology. Midline sternotomy wires are noted. Other findings: None Lines/Tubes: There is a [place]-Clark catheter with tip projecting over the spine. Left thoracotomy tube is present without evidence of pneumothorax. Right thoracotomy tube is present without evidence of pneumothorax. IMPRESSION: Post surgical changes with bilateral thoracotomy tubes without evidence of pneumothorax.
[2023-03-06] MEDS: HYDROcodone/APAP 5-325MG 1 EACH TAB PO PRN ×2 (08:29→14:11)
[2023-03-06] MEDS: POTASSIUM BICARBONATE/CIT AC 20 MEQ TABLET.EFF NG-TUBE SCH ×2 (08:31→10:28)
[2023-03-06] MEDS: ATORVASTATIN 40 MG TAB PO SCH (08:31)
[2023-03-06] MEDS: ASPIRIN 325 MG TAB PO SCH (08:31)
[2023-03-06] MEDS: PANTOPRAZOLE 40 MG/10 ML VIAL IVP SCH (08:31)
[2023-03-06] MEDS: CLOPIDOGREL 75 MG TAB PO SCH (08:31)
[2023-03-06] MEDS: ASCORBIC ACID 500 MG TAB PO SCH (08:31)
[2023-03-06] MEDS: MULTIVITAMINS, THERA 1 EACH TAB PO SCH (08:32)
[2023-03-06] MEDS: LOSARTAN 25 MG TAB PO SCH (08:33)
[2023-03-06] MEDS: MUPIROCIN 2% OINT 22 GM TUBE TOPICAL SCH ×2 (08:34→20:55)
[2023-03-06] MEDS: METOPROLOL TARTRATE 25 MG TAB PO SCH ×2 (08:39→20:49)
--- NOTE | 2023-03-06 08:54 | P.PN ---
Subjective Progress Note Date: 03/06/23 Principal diagnosis: Coronary artery disease with left main disease. History of hyperlipidemia, cardiomyopathy with decreased systolic function, moderate to severe central mitral regurgitation, asthma with multiple exacerbations, diabetes mellitus, previous tobacco dependence, GERD, osteoarthritis, covid infection in September 2022 POD #4 coronary artery bypass graft 2 with left internal thoracic artery to left anterior descending artery, reverse saphenous vein graft from the aorta to the first obtuse marginal, mitral valve repair with a #26 physio-2 annuloplasty ring, endoscopic harvesting of the left greater saphenous vein, left atrial appendage ligation with a #35 mm AtriClip, graft flow measurements using the [employer] flowmeter system, intraoperative transesophageal echocardiogram and insertion of right common femoral arterial line by anesthesia Postoperative acute blood loss anemia and thrombocytopenia, expected given hemodilution and cardiopulmonary bypass pump Prolonged mechanical ventilation, expected given the patient's severe restrictive lung disease Hypotension requiring pressor use The patient was seen and examined this morning sitting up in a recliner in the intensive care unit in no acute distress. She was successfully extubated yesterday and 17:10. Remains in sinus rhythm, hemodynamically stable, a bit hypertensive. Currently on IV Primacor and nitro. She did apparently have an episode last evening of hypotension with decreased filling pressures, she had been started on IV Lasix every 8 hours yesterday was felt to need a bit of v olume which she was given with rebound of blood pressure. States pain is controlled on current medication regimen, has taken no pain medication in the last 24 hours. Right internal jugular [place]/Cordis, right radial arterial line, left and right pleural chest tubes all remaining present. No other new complaints. Objective - Vital Signs Vital signs: Vital Signs Temp 98.2 F 03/05/23 20:00 Pulse 96 03/06/23 06:00 Resp 19 03/06/23 06:00 BP 132/75 03/06/23 01:00 Pulse Ox 99 03/06/23 06:00 FiO2 10 03/05/23 17:07 Intake & Output 03/05/23 03/06/23 03/06/23 18:59 06:59 18:59 Intake Total 1151.820 551.293 1.986 Output Total 1655 1102 Balance -503.180 -550.707 1.986 Intake: IV 548 508 0.9% @ 30 360 360 CO/CI 80 40 pressure bags 108 108 Intake, IV Titration 233.820 43.293 1.986 Amount Insulin Regular 100 unit 33.145 14.468 1.986 In Sodium Chloride 0.9% 100 ml @ Per Protocol IV .Q0M ANURAG Rx#:[id number] Milrinone-D5w Pmx 20 mg 100 In Dextrose/Water 1 100ml .bag @ 0.125 MCG/KG/MIN 2 .903 mls/hr IV .Q24H ANURAG Rx#:[id number] Nitroglycerin-D5w Pmx 50 100.675 28.825 mg In Dextrose/Water 1 250ml.bag @ 5 MCG/MIN 1.5 mls/hr IV .Q24H ANURAG Rx#: [id number] Tube Feeding 280 Other 90 Output: Chest Tube Drainage 230 77 Chest Tube Left 15 45 Chest Tube Mediastinal 30 Chest Tube Right 35 32 Right/Left Chest Tube 150 Urine 1425 1025 Other: Voiding Method Indwelling Catheter Indwelling Catheter ABP, PAP, CO, CI - Last Documented Arterial Blood Pressure 164/64 Pulmonary Artery Pressure 37/16 Cardiac Output 3.3 Cardiac Index 1.9 - Exam CONSTITUTIONAL: Appears comfortable, cooperative, no acute distress RESPIRATORY: Lungs sounds diminished bilaterally. Respirations even, nonlabored. Currently on 2 L nasal cannula with oxygen saturation 100%. Able to achieve 500 mL on incentive spirometry. Strong cough. CARDIOVASCULAR: S1, S2 present. Regular rate and rhythm, sinus rhythm on telemetry. Sternum stable. Palpable peripheral pulses bilaterally. No edema present. No calf pain or tenderness noted. Heart hugger in place with patient demonstrating appropriate use. Antiembolism stockings, SCDs present. GASTROINTESTINAL: Abdomen soft, nontender, nondistended. Hypoactive bowel sounds present 4 quadrants. Tolerating minimal clear liquids. Denies flatus GENITOURINARY: Pardo present draining clear, yellow urine. Output overnight 20-35 mL per hour, 2450 mL in the last 24 hours INTEGUMENTARY: Skin is warm and dry with evidence of good perfusion. Anterior chest incision well approximated and covered with dry intact dressing. Left lower extremity EVH site well approximated without redness or drainage. NEUROLOGIC: Cranial nerves II through XII intact MUSKULOSKELETAL: Able to move all extremities, strength equal bilaterally PSYCHIATRIC: Alert and oriented to person place and time, appropriate affect, intact judgment and insight INVASIVE LINES AND TUBES: Left/right pleural chest tubes present and connected to wall suction, no air leaks present. Left pleural chest tube with 45 mL serosanguineous drainage overnight, 200 mL in the last 24 hours. Right pleural chest tube with 32 mL serosanguineous drainage overnight, 120 mL last 24 hours. A/V epicardial pacemaker wires present, connected to generator, backup rate 50 bpm. Right internal jugular [place]/Cordis, right radial arterial line present. Last CO/CI 3.3/1.9, PA 45/13, CVP 11. - Allied health notes Allied health notes reviewed: nursing - Labs CBC & Chem 7: 03/06/23 04:12 03/06/23 04:12 Labs: Abnormal Lab Results - Last 24 Hours (Table) 03/05/23 03/05/23 03/05/23 Range/Units 13:06 14:58 15:57 RBC (3.80-5.40) m/uL Hgb (11.4-16.0) gm/dL Hct (34.0-46.0) % Plt Count (150-450) k/uL ABG pH (7.35-7.45) ABG pCO2 (35-45) mmHg ABG Total CO2 (19-24) mmol/L ABG O2 Saturation (94-97) % Chloride (98-107) mmol/L Glucose (74-99) mg/dL POC Glucose (mg/dL) 135 H 138 H 138 H (70-110) mg/dL Calcium (8.4-10.2) mg/dL 03/05/23 03/05/23 03/05/23 Range/Units 16:54 17:51 21:06 RBC (3.80-5.40) m/uL Hgb (11.4-16.0) gm/dL Hct (34.0-46.0) % Plt Count (150-450) k/uL ABG pH 7.49 H (7.35-7.45) ABG pCO2 32 L (35-45) mmHg ABG Total CO2 26 H (19-24) mmol/L ABG O2 Saturation 98.7 H (94-97) % Chloride (98-107) mmol/L Glucose (74-99) mg/dL POC Glucose (mg/dL) 112 H 140 H (70-110) mg/dL Calcium (8.4-10.2) mg/dL 03/05/23 03/05/23 03/06/23 Range/Units 22:13 22:57 00:16 RBC (3.80-5.40) m/uL Hgb (11.4-16.0) gm/dL Hct (34.0-46.0) % Plt Count (150-450) k/uL ABG pH (7.35-7.45) ABG pCO2 (35-45) mmHg ABG Total CO2 (19-24) mmol/L ABG O2 Saturation (94-97) % Chloride (98-107) mmol/L Glucose (74-99) mg/dL POC Glucose (mg/dL) 124 H 127 H 121 H (70-110) mg/dL Calcium (8.4-10.2) mg/dL 03/06/23 03/06/23 03/06/23 Range/Units 01:07 02:07 03:10 RBC (3.80-5.40) m/uL Hgb (11.4-16.0) gm/dL Hct (34.0-46.0) % Plt Count (150-450) k/uL ABG pH (7.35-7.45) ABG pCO2 (35-45) mmHg ABG Total CO2 (19-24) mmol/L ABG O2 Saturation (94-97) % Chloride (98-107) mmol/L Glucose (74-99) mg/dL POC Glucose (mg/dL) 115 H 121 H 119 H (70-110) mg/dL Calcium (8.4-10.2) mg/dL 03/06/23 03/06/23 03/06/23 Range/Units 04:12 04:12 04:14 RBC 2.63 L (3.80-5.40) m/uL Hgb 7.7 L (11.4-16.0) gm/dL Hct 23.2 L (34.0-46.0) % Plt Count 106 L (150-450) k/uL ABG pH (7.35-7.45) ABG pCO2 (35-45) mmHg ABG Total CO2 (19-24) mmol/L ABG O2 Saturation (94-97) % Chloride 109 H (98-107) mmol/L Glucose 116 H (74-99) mg/dL POC Glucose (mg/dL) 123 H (70-110) mg/dL Calcium 7.9 L (8.4-10.2) mg/dL 03/06/23 03/06/23 Range/Units 06:01 06:57 RBC (3.80-5.40) m/uL Hgb (11.4-16.0) gm/dL Hct (34.0-46.0) % Plt Count (150-450) k/uL ABG pH (7.35-7.45) ABG pCO2 (35-45) mmHg ABG Total CO2 (19-24) mmol/L ABG O2 Saturation (94-97) % Chloride (98-107) mmol/L Glucose (74-99) mg/dL POC Glucose (mg/dL) 125 H 120 H (70-110) mg/dL Calcium (8.4-10.2) mg/dL - Imaging and Cardiology Chest x-ray: report reviewed, image reviewed Assessment and Plan Assessment: Coronary artery disease with left main disease, status post 2 vessel CABG Hyperlipidemia, treated, cholesterol 148, LDL 51, triglycerides 201 Cardiomyopathy/chronic systolic heart failure with decreased systolic function, EF 35% on MARY 02/28/23 Moderate to severe central mitral regurgitation on MARY 02/28/23, status post mitral valve repair Asthma with multiple exacerbations, relieved with steroids Severe restrictive lung disease, FEV1 42% of predicted Diabetes mellitus, hemoglobin A1c 6.9% Previous tobacco dependence GERD Osteoarthritis Covid infection in September 2022 Postoperative acute blood loss anemia, expected Postoperative prolonged mechanical ventilation, expected Hypotension requiring pressor use Plan: Continue to maximize medical therapy with aspirin, statin, Plavix, and beta analisa with hold parameters. Will increase beta analisa as tolerated. Wean primacor as able. Wean IV NTG for BP support, continue Cozaar for afterload reduction. Will add hydralazine Wean steroids Wean O2 as tolerated. Encourage incentive spirometry 10 times every hour while awake. Bronchodilators per pulmonology. Will monitor daily labs and chest x-rays. Electrolyte replacement per protocol. Continue IV Lasix, decrease to BID GI/DVT prophylaxis. Pain control with current medication regimen. Increase activity, ambulate as tolerated, PT/OT/cardiac rehab consulted Insulin management per internal medicine service. Patient is diabetic with hemoglobin A1c 6.9%. Will discontinue left/right pleural chest tubes Continue Pardo catheter for another 24 hours for strict accurate intake and output Daily weights Discontinue [place] catheter Keep atrial and ventricular epicardial pacemaker wires in place and connected to back up generator More recommendations to follow based
[2023-03-06 08:56] LABS: Glucose,Whole Blood 119 mg/dL (70-110)
[2023-03-06] MEDS: ALBUTEROL 90 MCG INHALATION SCH ×4 (08:56→20:53)
[2023-03-06] MEDS: ALBUTEROL NEBULIZED 2.5 MG/3 ML INHALATION SCH ×4 (09:05→20:55)
[2023-03-06 10:13] LABS: Glucose,Whole Blood 118 mg/dL (70-110)
[2023-03-06] MEDS: POTASSIUM BICARBONATE/CIT AC 20 MEQ TABLET.EFF OG-TUBE SCH ×2 (10:29→22:19)
[2023-03-06] MEDS: POTASSIUM CHLORIDE ER 20 MEQ TAB.ER PO SCH ×2 (10:35→11:59)
--- NOTE | 2023-03-06 11:22 | P.PN ---
Subjective Progress Note Date: 03/06/23 Principal diagnosis: ICU/ventilator management. Coronary artery disease and mitral valve regurgitation This is a 77-year-old female with history of severe persistent bronchial asthma, former smoker quit in 1973, however looking back at her PFT in the office it was basically unremarkable and nonobstructive in nature. Nonetheless the patient has been experiencing over the last 3 years intermittent episodes of cough wheezing and shortness of breath, and has been requiring multiple courses of steroids, and at one point she was maintained on prednisone for her asthma by Dr. Swift. Patient also has multiple ALLERGIES and she cannot tolerate a lot of the inhalers as listed on her ALLERGY list. Patient was last admitted to the hospital and we saw on consultation on 01/12/2023, patient ended up on prednisone 10 mg daily and again very she inhalers that she can use at home. He goes of presumptive ALLERGY to inhalers. Patient was recently evaluated by Dr. Montes for her abnormal LV dysfunction ejection fraction of 35-40%, and she underwent a cardiac catheterization which showed demonstrated left main coronary artery disease due to this finding, the patient was referred to cardiothoracic surgery for surgical intervention, patient is being worked up for surgery, and part of the workup included a pulmonary consultation for preoperative clearance. Presently the patient denies any shortness of breath at rest, no cough no wheezing she does have chronic dyspnea on exertion. Again I reviewed her last PFT in the office and it was relatively normal based on this alone, I would clear the patient for surgery as scheduled, the benefits of surgery outweigh the risks The patient is seen today 03/01/2023 in follow-up on the cardiac floor. She is currently sitting up in bed. Awake and alert in no acute distress. No worsening shortness of breath, cough or congestion. Her asthma is currently inactive and stable. She is maintaining good O2 saturations in the upper 90s on room air. Afebrile. Hemodynamically stable. She is continued on her bronchodilators. Resumed on her prednisone. MARY from yesterday revealed moderate to severe mitral regurgitation and global hypokinesis with impaired left ventricular systolic function and ejection fraction 35%. Plan per CT services is for coronary revascularization and mitral valve repair possibly tomorrow. I'm seeing this patient today 03/03/2023 in follow-up post elective coronary artery bypass grafts 2 with a BRITO to LAD and saphenous vein graft to the OM 1, mitral valve repair with a #26 Physio II annuloplasty ring, and left atrial appendage ligation. Patient remains intubated after the procedure, with vent settings of assist control, respiratory rate 16, tidal volume 360, FiO2 40%, and PEEP of 5. The patient's postoperative ABG showed a pO2 of 159, pCO2 of 33, and pH of 7.47. Postoperative chest x-ray showed the endotracheal tube approximately 2 cm from the alisson, NG tube coursing below the diaphragm, a pulmonary artery catheter appropriately place, and some postoperative cardiac prosthesis and sternotomy wires. No obvious pneumothorax., On my evaluation, the patient's most recent CO/CI is 2.6 and 1.5 respectively. Patient's blood pressure is hypotensive with a mean arterial pressure of 58. PA pressures are 41/17. Heart rhythm is normal sinus at about 60 bpm. Patient reportedly r eceived a total of 750 ML's of 5% albumin. Currently, norepinephrine is infusing at 7.7 mics per minute, milrinone infusing at 0.375 mics per kilogram per minute, amiodarone is infusing at 0.5 mg/m due to some perioperative atrial fibrillation, and lactated Ringer's is infusing at 50 ML's per hour. Patient has a mediastinal and bilateral right and left pleural chest tubes. The mediastinal chest tube has put out 73 mL of serosanguineous output, and both right and left pleural chest tube sites are wide together and put out approximately 330 ML's of serosanguineous output. Most recent CBC done around 2100 shows a WBC count of 10, hemoglobin 8, hematocrit 24, platelets 100,000. INR 1.3. Patient's BMP at that time showed a sodium 141, potassium 3.9, chloride 110, serum CO2 25, BUN 7, creatinine 0.44, glucose 129. Insulin infusion is currently paused. Urine output is marginal at 20 mL per hour. We did attempt weaning trial on this patient with a pressure support of 8 and a CPAP of 5. Patient was still quite lethargic from sedation and only pulling tidal volumes of 100-200. For this reason, and the fact that the patient's hemodynamic status is marginal at this time, we will hold off on extubating. We will reassess patient's readiness to wean once more alert and able to cooperate with weaning trial. Progress note dated 03/04/2023. The patient is seen today in room 267. Yesterday, the patient had multiple weaning trials, and did very poorly on all of them. The patient is status post two-vessel bypass grafting, and mitral valve repair, as well as left atrial appendage ligation. Currently, the patient is on volume assist control, rate 16, tidal volume 360, FiO2 40%, and PEEP of 5. Blood gases show pO2 106, pCO2 34, pH is 7.46. The patient's getting lactated Ringer's at 30 mL an hour, insulin, is currently on hold, nitroglycerin running at 5 mcg/m, dopamine at 2 mcg/kg/m, and Primacor 0.375 mcg/kg/m. The patient had another weaning trial today, with 10 of pressure support and 5 of CPAP. Weaning parameters including a tidal volume of only 261 mL, respiratory rate of 36, rapid shallow breathing index of 161, minute ventilation of 10 L/m, vital capacity of 310 mL, negative inspiratory force of -24, and she did have a positive cuff leak. Because of the elevated R SBI, the patient which surely fail a trial of extubation, and therefore is not extubated this morning. White count 9.8, hemoglobin 7.4, hematocrit 22, platelet count 95,000. Sodium 139, potassium 3.4, chlorides 109, CO2 25, BUN 10, creatinine 0.59. AST was 182. ALT was 122. Albumin was 3.0. Chest x-ray show typical postoperative changes. There is some bibasilar atelectasis. Progress note dated 03/05/2023. The patient is seen today in room 267. The patient is postop day #3, status post two-vessel bypass grafting, and mitral valve repair. The patient has had multiple weaning attempts, but each time, she does very poorly, early on in the trial. She has high blood pressures, high respiratory rates, high heart rate, and very low tidal volumes. Yesterday, she was placed on pressure support of 10, CPAP of 5, and apparently initially did okay with that, but at 10:00 or so, she was found to have significant respiratory distress, despite being on pressure support of 16. She was placed back on phimosis control. Currently, she is on a rate of 16, tidal volume 360, FiO2 40%, PEEP of 5. But gases show pO2 145, pCO2 30, pH is 7.53. This blood gases consistent with both respiratory and metabolic alkalosis. The patient is receiving vital high protein at 20 mL an hour, with a goal of 50. In addition, the patient's on a number of vasoactive drugs including dopamine at 2 mcg/kg/m, Primacor 0.25 mcg/kg/m, insulin 3 units an hour and nitroglycerin at 25 mcg/m. In addition, the patient's getting saline at 30 mL an hour. White count 10, hemoglobin 7.2, hematocrit 21.8, and platelet count 96,000. Sodium 138, potassium 3.6, chlorides O9, CO2 25, BUN 11, creatinine 0.54. Albumin is 2.8. Chest x-ray shows evidence of cardiomegaly, but no acute process. Progress note dated 03/06/2023. 77-year-old female seen today in room 267. I'm happy to report that she was finally extubated on 03/05/2023. Today's postop day #4. She's currently on 2 L. She's getting saline at keep vein open, Primacor at 0.125 mcg/kg/m, nitroglycerin at 20 mcg/m, and an insulin drip at 1.5 units an hour. She sitting in a chair next to the bed. She looks comfortable. White count 9.3, hemoglobin 7.7, hematocrit 23.2, and a platelet count of 106,000. Sodium is 139, potassium 3.5, chlorides 109, CO2 26, within normal BUN and creatinine. Calcium is 7.9. Chest x-ray shows postsurgical changes, and some mild basilar atelectasis. Objective - Vital Signs Vital signs: Vital Signs Temp 98.2 F 03/06/23 07:00 Pulse 101 H 03/06/23 10:00 Resp 20 03/06/23 10:00 BP 153/83 03/06/23 09:00 Pulse Ox 99 03/06/23 10:00 FiO2 10 03/05/23 17:07 Intake & Output 03/05/23 03/06/23 03/06/23 18:59 06:59 18:59 Intake Total 1151.820 551.293 167.986 Output Total 1655 1102 485 Balance -503.180 -550.707 -317.014 Weight 93.4 kg Intake: IV 548 508 166 0.9% @ 30 360 360 120 CO/CI 80 40 10 pressure bags 108 108 36 Intake, IV Titration 233.820 43.293 1.986 Amount Insulin Regular 100 unit 33.145 14.468 1.986 In Sodium Chloride 0.9% 100 ml @ Per Protocol IV .Q0M ANURAG Rx#:[id number] Milrinone-D5w Pmx 20 mg 100 In Dextrose/Water 1 100ml .bag @ 0.125 MCG/KG/MIN 2 .903 mls/hr IV .Q24H ANURAG Rx#:[id number] Nitroglycerin-D5w Pmx 50 100.675 28.825 mg In Dextrose/Water 1 250ml.bag @ 5 MCG/MIN 1.5 mls/hr IV .Q24H ANURAG Rx#: [id number] Tube Feeding 280 Other 90 Output: Chest Tube Drainage 230 77 55 Chest Tube Left 15 45 20 Chest Tube Mediastinal 30 Chest Tube Right 35 32 35 Right/Left Chest Tube 150 Urine 1425 1025 430 Other: Voiding Method Indwelling Catheter Indwelling Catheter ABP, PAP, CO, CI - Last Documented Arterial Blood Pressure 131/44 Pulmonary Artery Pressure 36/13 Cardiac Output 4.2 Cardiac Index 2.4 - Exam No acute distress, extubated, on nasal oxygen. HEENT examination is grossly unremarkable. Neck supple. Full range of motion. No adenopathy thyromegaly or neck vein distention. Cardiovascular examination reveals regular rhythm rate. S1-S2 normal. No S3 or S4. No discernible murmur noted. Heart sounds are distant. Heart rate 100 bpm. Lungs reveal scattered bilateral rhonchi. No wheezes or crackles. Breath sounds equal bilaterally. Saturations are excellent on 2 L. Abdomen soft bowel sounds are heard. No masses or tenderness. Extremities are intact. No cyanosis clubbing or edema. Skin is without rash or lesion. Neurologic examination is brief but nonfocal. - Labs CBC & Chem 7: 03/06/23 04:12 03/06/23 04:12 Labs: Abnormal Lab Results - Last 24 Hours (Table) 03/05/23 03/05/23 03/05/23 Range/Units 13:06 14:58 15:57 RBC (3.80-5.40) m/uL Hgb (11.4-16.0) gm/dL Hct (34.0-46.0) % Plt Count (150-450) k/uL ABG pH (7.35-7.45) ABG pCO2 (35-45) mmHg ABG Total CO2 (19-24) mmol/L ABG O2 Saturation (94-97) % Chloride (98-107) mmol/L Glucose (74-99) mg/dL POC Glucose (mg/dL) 135 H 138 H 138 H (70-110) mg/dL Calcium (8.4-10.2) mg/dL 03/05/23 03/05/23 03/05/23 Range/Units 16:54 17:51 21:06 RBC (3.80-5.40) m/uL Hgb (11.4-16.0) gm/dL Hct (34.0-46.0) % Plt Count (150-450) k/uL ABG pH 7.49 H (7.35-7.45) ABG pCO2 32 L (35-45) mmHg ABG Total CO2 26 H (19-24) mmol/L ABG O2 Saturation 98.7 H (94-97) % Chloride (98-107) mmol/L Glucose (74-99) mg/dL POC Glucose (mg/dL) 112 H 140 H (70-110) mg/dL Calcium (8.4-10.2) mg/dL 03/05/23 03/05/23 03/06/23 Range/Units 22:13 22:57 00:16 RBC (3.80-5.40) m/uL Hgb (11.4-16.0) gm/dL Hct (34.0-46.0) % Plt Count (150-450) k/uL ABG pH (7.35-7.45) ABG pCO2 (35-45) mmHg ABG Total CO2 (19-24) mmol/L ABG O2 Saturation (94-97) % Chloride (98-107) mmol/L Glucose (74-99) mg/dL POC Glucose (mg/dL) 124 H 127 H 121 H (70-110) mg/dL Calcium (8.4-10.2) mg/dL 03/06/23 03/06/23 03/06/23 Range/Units 01:07 02:07 03:10 RBC (3.80-5.40) m/uL Hgb (11.4-16.0) gm/dL Hct (34.0-46.0) % Plt Count (150-450) k/uL ABG pH (7.35-7.45) ABG pCO2 (35-45) mmHg ABG Total CO2 (19-24) mmol/L ABG O2 Saturation (94-97) % Chloride (98-107) mmol/L Glucose (74-99) mg/dL POC Glucose (mg/dL) 115 H 121 H 119 H (70-110) mg/dL Calcium (8.4-10.2) mg/dL 03/06/23 03/06/23 03/06/23 Range/Units 04:12 04:12 04:14 RBC 2.63 L (3.80-5.40) m/uL Hgb 7.7 L (11.4-16.0) gm/dL Hct 23.2 L (34.0-46.0) % Plt Count 106 L (150-450) k/uL ABG pH (7.35-7.45) ABG pCO2 (35-45) mmHg ABG Total CO2 (19-24) mmol/L ABG O2 Saturation (94-97) % Chloride 109 H (98-107) mmol/L Glucose 116 H (74-99) mg/dL POC Glucose (mg/dL) 123 H (70-110) mg/dL Calcium 7.9 L (8.4-10.2) mg/dL 03/06/23 03/06/23 03/06/23 Range/Units 06:01 06:57 08:54 RBC (3.80-5.40) m/uL Hgb (11.4-16.0) gm/dL Hct (34.0-46.0) % Plt Count (150-450) k/uL ABG pH (7.35-7.45) ABG pCO2 (35-45) mmHg ABG Total CO2 (19-24) mmol/L ABG O2 Saturation (94-97) % Chloride (98-107) mmol/L Glucose (74-99) mg/dL POC Glucose (mg/dL) 125 H 120 H 119 H (70-110) mg/dL Calcium (8.4-10.2) mg/dL 03/06/23 Range/Units 10:10 RBC (3.80-5.40) m/uL Hgb (11.4-16.0) gm/dL Hct (34.0-46.0) % Plt Count (150-450) k/uL ABG pH (7.35-7.45) ABG pCO2 (35-45) mmHg ABG Total CO2 (19-24) mmol/L ABG O2 Saturation (94-97) % Chloride (98-107) mmol/L Glucose (74-99) mg/dL POC Glucose (mg/dL) 118 H (70-110) mg/dL Calcium (8.4-10.2) mg/dL Assessment and Plan Assessment: Postop day #4, status post two-vessel bypass grafting, mitral valve repair, and left atrial appendage ligation. Routine postoperative ventilator management, with failure to wean from mechanical ventilation, status post extubation, 03/05/2023. History of CAD. Ischemic cardiomyopathy, with ejection fraction 35%. Moderate to severe mitral regurgitation. Severe persistent asthma. Previous tobacco dependence. Type 2 diabetes mellitus. Degenerative disc disease. Gastroesophageal reflux disease. Plan: Plan dated 03/04/2023. The patient was given another weaning trial this morning. She was placed on pressure support of 10, and CPAP of 5. Despite that, she had very poor weaning parameters, and we do very poorly of extubated. Her rapid shallow breathing index which is the best indicator of the patient's ability to breathe spontaneously, was 161. That number should be less than 105, and probably even less than 80. Nonetheless, the patient will continue on mechanical ventilation at this time. Continue to follow the patient. Labs, x-rays, medications are reviewed. The patient remains on a number drips including nitroglycerin, dopamine, and Primacor. Insulin is currently on hold. We will continue to follow make recommendations along the way. Plan dated 03/05/2023. The patient had to weaning trial yesterday, and failed miserably on both of them. This morning, we placed her back on pressure support, and she did very poorly. We'll try again later today. She just may need more time. She remains on many vasoactive drugs including dopamine, Primacor, and nitroglycerin. Labs, x-rays, and medications are reviewed. We will continue to follow the patient and make recommendations along the way. Prognosis is guarded. Today is postop day #3. Plan dated 03/06/2023. The patient was finally extubated yesterday March 05, postop day #3. Today is postop day #4. The patient is seen in room 267. The patient is currently on 2 L of oxygen. She remains on insulin drip, Primacor, and IV nitroglycerin. We encouraged the hourly use of the incentive spirometer. In addition we recommend deep breathing, coughing, clearing of secretions. Labs, x-rays, and medications are reviewed. Prognosis is guarded. Clinically doing much better today though. Time with Patient: Greater than 30
[2023-03-06 11:27] LABS: Glucose,Whole Blood 129 mg/dL (70-110)
[2023-03-06] MEDS ORDERED: lisinopriL 5 MG TAB OG-TUBE SCH (12:00)
[2023-03-06] MEDS: NITROGLYCERIN-D5W PMX 50 MG in DEXTROSE/WATER 1 250ML.BAG IV SCH (12:11)
[2023-03-06 12:52] LABS: Glucose,Whole Blood 173 mg/dL (70-110)
--- NOTE | 2023-03-06 13:50 | PN ---
PROGRESS NOTE SUBJECTIVE: Ms. Bolaños has been extubated yesterday. She is doing remarkably well, hemodynamically stable, neurologically intact, making good progress. She underwent aortocoronary bypass surgery a few days ago, had a somewhat slow extubation process, but she is doing well. OBJECTIVE: VITAL SIGNS: Stable. NECK: JVD 1 cm. No carotid bruit. HEART: S1 and S2 heard normally. Short systolic murmur. LUNGS: Reveal improved air entry. ABDOMEN: Unchanged. LOWER EXTREMITIES: Unchanged. PLAN: To continue current medications, incentive spirometry, and pulmonary toilet. The patient is on a small dose of milrinone that will probably be discontinued in the next 24 hours. The patient is making decent progress today. MMODL / IJN: [id number] /
--- NOTE | 2023-03-06 14:18 | P.PN ---
Subjective Progress Note Date: 03/06/23 77-year-old patient with past medical history significant for coronary artery disease, history of diabetes mellitus, asthma, hyperlipidemia osteoarthritis history of cardiomyopathy presented to the emergency department and admitted for cardiomyopathy and ischemic workup. Patient was status post cardiac c atheterization and was noted to have multivessel coronary artery disease and was referred to cardiothoracic surgery for surgical intervention. * Patient been worked up for CABG and seen by multiple specialties including pulmonary medicine, internal medicine consulted as well for medical management * Patient underwent elective coronary artery bypass grafts 2 with a BRITO to LAD and saphenous vein graft to the OM 1, mitral valve repair with a #26 Physio II annuloplasty ring, and left atrial appendage ligation * 03/05. Patient currently intubated, patient opening eyes, following commands. Patient has had multiple weaning attempt that failed. ICU following * * * 03/06. Patient seen and examined. Sitting upright in the chair, patient extubated yesterday, states she feels better. Plan is for patient chest tubes to be removed today REVIEW OF SYSTEMS: Denies any shortness of breath at this time. Complaining of chest pain at the site of surgical site. Denies any nausea, vomiting abdominal pain. Denies any lightheadedness or dizziness PHYSICAL EXAMINATION: GENERAL: Alert HEENT: Pupils are round and equally reacting to light. EOMI. No scleral icterus. No conjunctival pallor. Normocephalic, atraumatic. No pharyngeal erythema. No thyromegaly. CARDIOVASCULAR: S1 and S2 present. No murmurs, rubs, or gallops. PULMONARY: Chest is clear to auscultation, no wheezing or crackles. ABDOMEN: Soft, nontender, nondistended, normoactive bowel sounds. No palpable organomegaly. MUSCULOSKELETAL: No joint swelling or deformity. EXTREMITIES: No cyanosis, clubbing, or pedal edema. NEUROLOGICAL: Gross neurological examination did not reveal any focal deficits. SKIN: No rashes. Assessment and plan Coronary artery disease with left main disease status post CABG Ischemic cardiomyopathy and LV dysfunction with ejection fraction of 35-40% based on transthoracic echo from 09/2022 mitral regurgitation Acute respiratory failure requiring intubation and mechanical ventilation Postoperative anemia Severe persistent asthma Type 2 diabetes Degenerative disc disease GERD without esophagitis Plan Monitor vital signs Monitor CBC Monitor CMP Continue telemetry monitoring Encourage use of I-S Aggressive bronchopulmonary hygiene Continue postoperative care per CT surgery team Continue aspirin, Plavix, Lipitor. Continue IV Lasix 20 mg twice a day Internal medicine team will follow along postoperatively patient in ICU POST CABG Objective - Vital Signs Vital signs: Vital Signs Temp 98.2 F 03/06/23 07:00 Pulse 102 H 03/06/23 12:00 Resp 26 H 03/06/23 12:00 BP 157/81 03/06/23 11:00 Pulse Ox 98 03/06/23 12:00 FiO2 10 03/05/23 17:07 Intake & Output 03/05/23 03/06/23 03/06/23 18:59 06:59 18:59 Intake Total 1151.820 551.293 323.123 Output Total 1655 1102 625 Balance -503.180 -550.707 -301.877 Weight 93.4 kg Intake: IV 548 508 283 0.9% @ 30 360 360 210 CO/CI 80 40 10 pressure bags 108 108 63 Intake, IV Titration 233.820 43.293 40.123 Amount Insulin Regular 100 unit 33.145 14.468 10.773 In Sodium Chloride 0.9% 100 ml @ Per Protocol IV .Q0M ANURAG Rx#:[id number] Milrinone-D5w Pmx 20 mg 100 In Dextrose/Water 1 100ml .bag @ 0.125 MCG/KG/MIN 2 .903 mls/hr IV .Q24H ANURAG Rx#:[id number] Nitroglycerin-D5w Pmx 50 100.675 28.825 29.35 mg In Dextrose/Water 1 250ml.bag @ 5 MCG/MIN 1.5 mls/hr IV .Q24H ANURAG Rx#: [id number] Tube Feeding 280 Other 90 Output: Chest Tube Drainage 230 77 55 Chest Tube Left 15 45 20 Chest Tube Mediastinal 30 Chest Tube Right 35 32 35 Right/Left Chest Tube 150 Urine 1425 1025 570 Other: Voiding Method Indwelling Catheter Indwelling Catheter Indwelling Catheter ABP, PAP, CO, CI - Last Documented Arterial Blood Pressure 130/46 Pulmonary Artery Pressure 37/12 Cardiac Output 5.3 Cardiac Index 3.0 - Labs CBC & Chem 7: 03/06/23 04:12 03/06/23 04:12 Labs: Abnormal Lab Results - Last 24 Hours (Table) 03/05/23 03/05/23 03/05/23 Range/Units 14:58 15:57 16:54 RBC (3.80-5.40) m/uL Hgb (11.4-16.0) gm/dL Hct (34.0-46.0) % Plt Count (150-450) k/uL ABG pH 7.49 H (7.35-7.45) ABG pCO2 32 L (35-45) mmHg ABG Total CO2 26 H (19-24) mmol/L ABG O2 Saturation 98.7 H (94-97) % Chloride (98-107) mmol/L Glucose (74-99) mg/dL POC Glucose (mg/dL) 138 H 138 H (70-110) mg/dL Calcium (8.4-10.2) mg/dL 03/05/23 03/05/23 03/05/23 Range/Units 17:51 21:06 22:13 RBC (3.80-5.40) m/uL Hgb (11.4-16.0) gm/dL Hct (34.0-46.0) % Plt Count (150-450) k/uL ABG pH (7.35-7.45) ABG pCO2 (35-45) mmHg ABG Total CO2 (19-24) mmol/L ABG O2 Saturation (94-97) % Chloride (98-107) mmol/L Glucose (74-99) mg/dL POC Glucose (mg/dL) 112 H 140 H 124 H (70-110) mg/dL Calcium (8.4-10.2) mg/dL 03/05/23 03/06/23 03/06/23 Range/Units 22:57 00:16 01:07 RBC (3.80-5.40) m/uL Hgb (11.4-16.0) gm/dL Hct (34.0-46.0) % Plt Count (150-450) k/uL ABG pH (7.35-7.45) ABG pCO2 (35-45) mmHg ABG Total CO2 (19-24) mmol/L ABG O2 Saturation (94-97) % Chloride (98-107) mmol/L Glucose (74-99) mg/dL POC Glucose (mg/dL) 127 H 121 H 115 H (70-110) mg/dL Calcium (8.4-10.2) mg/dL 04/14/23 04/14/23 04/14/23 Range/Units 02:07 03:10 04:12 RBC 2.63 L (3.80-5.40) m/uL Hgb 7.7 L (11.4-16.0) gm/dL Hct 23.2 L (34.0-46.0) % Plt Count 106 L (150-450) k/uL ABG pH (7.35-7.45) ABG pCO2 (35-45) mmHg ABG Total CO2 (19-24) mmol/L ABG O2 Saturation (94-97) % Chloride (98-107) mmol/L Glucose (74-99) mg/dL POC Glucose (mg/dL) 121 H 119 H (70-110) mg/dL Calcium (8.4-10.2) mg/dL 03/06/23 03/06/23 03/06/23 Range/Units 04:12 04:14 06:01 RBC (3.80-5.40) m/uL Hgb (11.4-16.0) gm/dL Hct (34.0-46.0) % Plt Count (150-450) k/uL ABG pH (7.35-7.45) ABG pCO2 (35-45) mmHg ABG Total CO2 (19-24) mmol/L ABG O2 Saturation (94-97) % Chloride 109 H (98-107) mmol/L Glucose 116 H (74-99) mg/dL POC Glucose (mg/dL) 123 H 125 H (70-110) mg/dL Calcium 7.9 L (8.4-10.2) mg/dL 03/06/23 03/06/23 03/06/23 Range/Units 06:57 08:54 10:10 RBC (3.80-5.40) m/uL Hgb (11.4-16.0) gm/dL Hct (34.0-46.0) % Plt Count (150-450) k/uL ABG pH (7.35-7.45) ABG pCO2 (35-45) mmHg ABG Total CO2 (19-24) mmol/L ABG O2 Saturation (94-97) % Chloride (98-107) mmol/L Glucose (74-99) mg/dL POC Glucose (mg/dL) 120 H 119 H 118 H (70-110) mg/dL Calcium (8.4-10.2) mg/dL 03/06/23 03/06/23 Range/Units 11:16 12:50 RBC (3.80-5.40) m/uL Hgb (11.4-16.0) gm/dL Hct (34.0-46.0) % Plt Count (150-450) k/uL ABG pH (7.35-7.45) ABG pCO2 (35-45) mmHg ABG Total CO2 (19-24) mmol/L ABG O2 Saturation (94-97) % Chloride (98-107) mmol/L Glucose (74-99) mg/dL POC Glucose (mg/dL) 129 H 173 H (70-110) mg/dL Calcium (8.4-10.2) mg/dL
[2023-03-06 14:19] LABS: Glucose,Whole Blood 175 mg/dL (70-110)
[2023-03-06 15:28] LABS: Glucose,Whole Blood 142 mg/dL (70-110)
[2023-03-06] MEDS: INSULIN REGULAR 100 UNIT in SODIUM CHLORIDE 0.9% 100 ML IV SCH (15:30)
[2023-03-06 16:26] LABS: Glucose,Whole Blood 131 mg/dL (70-110)
[2023-03-06] MEDS ORDERED: DEXTROSE 50% SYRINGE 50 ML IVP PRN ×2 (16:52)
[2023-03-06 17:34] LABS: Glucose,Whole Blood 149 mg/dL (70-110)
[2023-03-06] MEDS: INSULIN ASPART (NovoLOG) 100 UNIT/ML VIAL SQ SCH ×2 (17:37→20:49)
[2023-03-06 20:42] LABS: Glucose,Whole Blood 164 mg/dL (70-110)
[2023-03-06] MEDS: SENNOSIDES-DOCUSATE SODIUM 1 EACH TAB PO SCH (20:49)
[2023-03-06] MEDS: INSULIN DETEMIR (LEVEMIR) 100 UNIT/ML SYR SQ SCH (20:49)
[2023-03-06] MEDS: LATANOPROST 0.005% OPHTH DROPS 2.5 ML BTL BOTH EYES SCH (20:50)
[2023-03-06] MEDS: VESICARE 10 MG PO SCH ×2 (20:51→20:53)
[2023-03-06] MEDS: SODIUM CHLORIDE 0.9% 1,000 ML IV SCH (20:55)
[2023-03-06] MEDS ORDERED: hydrALAZINE HCL 25 MG TAB PO SCH (21:00)
[2023-03-07 04:51] LABS: HCT 25.8 % (34.0-46.0); HGB 8.2 gm/dL (11.4-16.0); MCH 27.8 pg (25.0-35.0); Mean Platelet Volume 8.9; RBC 2.96 m/uL (3.80-5.40); RDW 15.1 % (11.5-15.5); WBC 10.4 k/uL (3.8-10.6)
[2023-03-07 04:53] LABS: Platelet Count 173 k/uL (150-450)
[2023-03-07 05:17] LABS: ALT 102 U/L (4-34); AST 60 U/L (14-36); African American GFR (CKD) >90 (>60 ml/min/1.73 sqM); Albumin 3.2 g/dL (3.5-5.0); Alkaline Phosphatase 76 U/L (38-126); Anion Gap 4 mmol/L; Blood Urea Nitrogen 17 mg/dL (7-17); Calcium 8.3 mg/dL (8.4-10.2); Carbon Dioxide 28 mmol/L (22-30); Chloride 108 mmol/L (98-107); Glucose 142 mg/dL (74-99); Magnesium 2.1 mg/dL (1.6-2.3); Non-African American GFR(CKD) 89 (>60 ml/min/1.73 sqM); Potassium 4.3 mmol/L (3.5-5.1); Sodium 140 mmol/L (137-145); Total Bilirubin 0.7 mg/dL (0.2-1.3); Total Protein 5.1 g/dL (6.3-8.2)
[2023-03-07] MEDS: hydrALAZINE HCL 20 MG/ML 1 ML VIAL IVP PRN (06:39)
[2023-03-07] MEDS: MILRINONE-D5W PMX 20 MG in DEXTROSE/WATER 1 100ML.BAG IV SCH (06:52)
[2023-03-07 06:53] LABS: Glucose,Whole Blood 135 mg/dL (70-110)
[2023-03-07] MEDS: INSULIN ASPART (NovoLOG) 100 UNIT/ML VIAL SQ SCH ×4 (06:54→21:03)
--- NOTE | 2023-03-07 07:28 | XR ---
EXAMINATION TYPE: XR chest 1V portable DATE OF EXAM: 03/07/2023 5:46 AM COMPARISON: Chest radiographs from 03/06/2023 TECHNIQUE: XR chest 1V portable Portable AP radiograph of the chest. CLINICAL INDICATION:Female, 77 years old with history of post cardiac surgery; FINDINGS: Lungs/Pleura: There is no evidence of pleural effusion, focal consolidation, or pneumothorax. Pulmonary vascularity: Pulmonary vascular congestion. Heart/mediastinum: Cardiomediastinal silhouette is enlarged and stable. Cardiac valvular prosthesis. Left atrial appendage occlusion device. Musculoskeletal: No acute osseous pathology. Rotator repair changes on the right. Other findings: None Lines/Tubes: Interval removal of [place] catheter and chest tubes. Right IJ catheter terminates in the mid SVC. IMPRESSION: 1. Postsurgical changes with interval removal bilateral chest tube without sizable pneumothorax. 2. Mild pulmonary vascular congestion.
--- NOTE | 2023-03-07 08:38 | P.PN ---
Subjective Progress Note Date: 03/07/23 Principal diagnosis: Coronary artery disease with left main disease. History of hyperlipidemia, cardiomyopathy with decreased systolic function, moderate to severe central mitral regurgitation, asthma with multiple exacerbations, diabetes mellitus, previous tobacco dependence, GERD, osteoarthritis, covid infection in September 2022 POD #5 coronary artery bypass graft 2 with left internal thoracic artery to left anterior descending artery, reverse saphenous vein graft from the aorta to the first obtuse marginal, mitral valve repair with a #26 physio-2 annuloplasty ring, endoscopic harvesting of the left greater saphenous vein, left atrial appendage ligation with a #35 mm AtriClip, graft flow measurements using the simplifyMDstim flowmeter system, intraoperative transesophageal echocardiogram and insertion of right common femoral arterial line by anesthesia Postoperative acute blood loss anemia and thrombocytopenia, expected given hemodilution and cardiopulmonary bypass pump Prolonged mechanical ventilation, expected given the patient's severe restrictive lung disease Hypotension requiring pressor use The patient was seen and examined this morning sitting up in a recliner in the intensive care unit in no acute distress. Remains in sinus rhythm, hemodynamically stable. Currently on low dose IV Primacor. States pain is controlled on current medication regimen, does complain of some shortness of breath this morning although oxygen saturation 96% on room air and patient only achieving 500 mL on incentive spirometry. Right internal jugular Cordis, right radial arterial line remain present. Patient did ambulate a short distance in the hallway yesterday. No other new complaints. Objective - Vital Signs Vital signs: Vital Signs Temp 98 F 03/07/23 00:00 Pulse 101 H 03/07/23 07:30 Resp 26 H 03/07/23 06:30 BP 145/70 03/07/23 07:30 Pulse Ox 98 03/07/23 07:30 FiO2 10 03/05/23 17:07 Intake & Output 03/06/23 03/07/23 03/07/23 18:59 06:59 18:59 Intake Total 509.002 462 26 Output Total 745 845 15 Balance -235.998 -383 11 Weight 93.4 kg 86.2 kg Intake: IV 463 312 26 0.9% @ 30 360 240 20 CO/CI 10 pressure bags 93 72 6 Intake, IV Titration 46.002 Amount Insulin Regular 100 unit 16.652 In Sodium Chloride 0.9% 100 ml @ Per Protocol IV .Q0M [facility] Rx#:[id number] Nitroglycerin-D5w Pmx 50 29.35 mg In Dextrose/Water 1 250ml.bag @ 5 MCG/MIN 1.5 mls/hr IV .Q24H [facility] Rx#: [id number] Oral 150 Output: Chest Tube Drainage 55 Chest Tube Left 20 Chest Tube Right 35 Urine 690 845 15 Other: Voiding Method Indwelling Catheter Indwelling Catheter ABP, PAP, CO, CI - Last Documented Arterial Blood Pressure 115/59 Pulmonary Artery Pressure 35/13 Cardiac Output 4.2 Cardiac Index 2.4 - Exam CONSTITUTIONAL: Appears comfortable, cooperative, no acute distress RESPIRATORY: Lungs sounds diminished bilaterally. Respirations even, nonl abored. Currently on room air with oxygen saturation 96%. Able to achieve 500 mL on incentive spirometry. Strong cough. CARDIOVASCULAR: S1, S2 present. Regular rate and rhythm, sinus rhythm on telemetry. Sternum stable. Palpable peripheral pulses bilaterally. No edema present. No calf pain or tenderness noted. Heart hugger in place with patient demonstrating appropriate use. Antiembolism stockings, SCDs present. GASTROINTESTINAL: Abdomen soft, nontender, nondistended. Active bowel sounds present 4 quadrants. Tolerating diet. Positive flatus, no bowel movement since surgery GENITOURINARY: Pardo present draining clear, yellow urine. Output overnight 15-60 mL per hour, 1535 mL in the last 24 hours INTEGUMENTARY: Skin is warm and dry with evidence of good perfusion. Anterior chest incision well approximated and covered with dry intact dressing. Left lower extremity EVH site well approximated without redness or drainage. NEUROLOGIC: Cranial nerves II through XII intact MUSKULOSKELETAL: Able to move all extremities, strength equal bilaterally PSYCHIATRIC: Alert and oriented to person place and time, appropriate affect, intact judgment and insight INVASIVE LINES AND TUBES: A/V epicardial pacemaker wires present, grounded. Right internal jugular cordis, right radial arterial line present - Allied health notes Allied health notes reviewed: nursing - Labs CBC & Chem 7: 03/07/23 04:20 03/07/23 04:20 Labs: Abnormal Lab Results - Last 24 Hours (Table) 03/06/23 03/06/23 03/06/23 Range/Units 08:54 10:10 11:16 RBC (3.80-5.40) m/uL Hgb (11.4-16.0) gm/dL Hct (34.0-46.0) % Chloride (98-107) mmol/L Glucose (74-99) mg/dL POC Glucose (mg/dL) 119 H 118 H 129 H (70-110) mg/dL Calcium (8.4-10.2) mg/dL AST (14-36) U/L ALT (4-34) U/L Total Protein (6.3-8.2) g/dL Albumin (3.5-5.0) g/dL 03/06/23 03/06/23 03/06/23 Range/Units 12:50 14:17 15:22 RBC (3.80-5.40) m/uL Hgb (11.4-16.0) gm/dL Hct (34.0-46.0) % Chloride (98-107) mmol/L Glucose (74-99) mg/dL POC Glucose (mg/dL) 173 H 175 H 142 H (70-110) mg/dL Calcium (8.4-10.2) mg/dL AST (14-36) U/L ALT (4-34) U/L Total Protein (6.3-8.2) g/dL Albumin (3.5-5.0) g/dL 03/06/23 03/06/23 03/06/23 Range/Units 16:24 17:31 20:40 RBC (3.80-5.40) m/uL Hgb (11.4-16.0) gm/dL Hct (34.0-46.0) % Chloride (98-107) mmol/L Glucose (74-99) mg/dL POC Glucose (mg/dL) 131 H 149 H 164 H (70-110) mg/dL Calcium (8.4-10.2) mg/dL AST (14-36) U/L ALT (4-34) U/L Total Protein (6.3-8.2) g/dL Albumin (3.5-5.0) g/dL 03/07/23 03/07/23 03/07/23 Range/Units 04:20 04:20 06:51 RBC 2.96 L (3.80-5.40) m/uL Hgb 8.2 L (11.4-16.0) gm/dL Hct 25.8 L (34.0-46.0) % Chloride 108 H (98-107) mmol/L Glucose 142 H (74-99) mg/dL POC Glucose (mg/dL) 135 H (70-110) mg/dL Calcium 8.3 L (8.4-10.2) mg/dL AST 60 H (14-36) U/L ALT 102 H (4-34) U/L Total Protein 5.1 L (6.3-8.2) g/dL Albumin 3.2 L (3.5-5.0) g/dL - Imaging and Cardiology Chest x-ray: report reviewed, image reviewed Assessment and Plan Assessment: Coronary artery disease with left main disease, status post 2 vessel CABG Hyperlipidemia, treated, cholesterol 148, LDL 51, triglycerides 201 Cardiomyopathy/chronic systolic heart failure with decreased systolic function, EF 35% on MARY 02/28/23 Moderate to severe central mitral regurgitation on MARY 02/28/23, status post mitral valve repair Asthma with multiple exacerbations, relieved with steroids Severe restrictive lung disease, FEV1 42% of predicted Diabetes mellitus, hemoglobin A1c 6.9% Previous tobacco dependence GERD Osteoarthritis Covid infection in September 2022 Postoperative acute blood loss anemia, expected Postoperative prolonged mechanical ventilation, expected Hypotension requiring pressor use, resolved Plan: Continue to maximize medical therapy with aspirin, statin, Plavix, and beta analisa with hold parameters. Will increase beta analisa as tolerated. Will discontinue primacor. Continue Cozaar, hydralazine for afterload reduction, hydralazine increased Wean steroids Encourage incentive spirometry 10 times every hour while awake. Bronchodilators per pulmonology. Will monitor daily labs and chest x-rays. Electrolyte replacement per protocol. Continue IV Lasix GI/DVT prophylaxis. Pain control with current medication regimen. Increase activity, ambulate as tolerated, PT/OT/cardiac rehab following Insulin management per internal medicine service. Patient is diabetic with hemoglobin A1c 6.9%. Likely will discontinue Pardo catheter. Continue patient's home vesicare for overactive bladder Likely will discontinue cordis, arterial line Strict accurate intake and output Daily weights Keep atrial and ventricular epicardial pacemaker wires in place More recommendations to follow based
[2023-03-07] MEDS ORDERED: HYDROCORTISONE SUCCINATE 100 MG/2 ML VIAL IV SCH (09:00)
[2023-03-07] MEDS: ALBUTEROL NEBULIZED 2.5 MG/3 ML INHALATION SCH (09:34)
[2023-03-07] MEDS: ALBUTEROL 90 MCG INHALATION SCH ×4 (09:36→21:19)
[2023-03-07] MEDS: ATORVASTATIN 40 MG TAB PO SCH (09:52)
[2023-03-07] MEDS: PANTOPRAZOLE 40 MG/10 ML VIAL IVP SCH (09:52)
[2023-03-07] MEDS: HEPARIN SODIUM,PORCINE/PF 5,000 UNIT/0.5 ML SYRINGE SQ SCH ×3 (09:52→23:24)
[2023-03-07] MEDS: ASCORBIC ACID 500 MG TAB PO SCH (09:53)
[2023-03-07] MEDS: FUROSEMIDE 10 MG/ML 2 ML VIAL IV SCH ×2 (09:53→20:52)
[2023-03-07] MEDS: MULTIVITAMINS, THERA 1 EACH TAB PO SCH (09:53)
[2023-03-07] MEDS: POTASSIUM BICARBONATE/CIT AC 20 MEQ TABLET.EFF OG-TUBE SCH ×2 (09:53→20:53)
[2023-03-07] MEDS: hydrALAZINE HCL 25 MG TAB PO SCH ×3 (09:53→23:38)
[2023-03-07] MEDS: CLOPIDOGREL 75 MG TAB PO SCH (09:53)
[2023-03-07] MEDS: METOPROLOL TARTRATE 25 MG TAB PO SCH ×2 (09:53→20:52)
[2023-03-07] MEDS: ASPIRIN 325 MG TAB PO SCH (09:53)
[2023-03-07] MEDS: LOSARTAN 25 MG TAB PO SCH (09:54)
[2023-03-07] MEDS: MUPIROCIN 2% OINT 22 GM TUBE TOPICAL SCH ×2 (09:56→21:04)
--- NOTE | 2023-03-07 11:10 | P.PN ---
Subjective Progress Note Date: 03/07/23 Principal diagnosis: ICU/ventilator management. Coronary artery disease and mitral valve regurgitation This is a 77-year-old female with history of severe persistent bronchial asthma, former smoker quit in 1973, however looking back at her PFT in the office it was basically unremarkable and nonobstructive in nature. Nonetheless the patient has been experiencing over the last 3 years intermittent episodes of cough wheezing and shortness of breath, and has been requiring multiple courses of steroids, and at one point she was maintained on prednisone for her asthma by Dr. Swift. Patient also has multiple ALLERGIES and she cannot tolerate a lot of the inhalers as listed on her ALLERGY list. Patient was last admitted to the hospital and we saw on consultation on 01/12/2023, patient ended up on prednisone 10 mg daily and again very she inhalers that she can use at home. He goes of presumptive ALLERGY to inhalers. Patient was recently evaluated by Dr. Montes for her abnormal LV dysfunction ejection fraction of 35-40%, and she underwent a cardiac catheterization which showed demonstrated left main coronary artery disease due to this finding, the patient was referred to cardiothoracic surgery for surgical intervention, patient is being worked up for surgery, and part of the workup included a pulmonary consultation for preoperative clearance. Presently the patient denies any shortness of breath at rest, no cough no wheezing she does have chronic dyspnea on exertion. Again I reviewed her last PFT in the office and it was relatively normal based on this alone, I would clear the patient for surgery as scheduled, the benefits of surgery outweigh the risks The patient is seen today 03/01/2023 in follow-up on the cardiac floor. She is currently sitting up in bed. Awake and alert in no acute distress. No worsening shortness of breath, cough or congestion. Her asthma is currently inactive and stable. She is maintaining good O2 saturations in the upper 90s on room air. Afebrile. Hemodynamically stable. She is continued on her bronchodilators. Resumed on her prednisone. MARY from yesterday revealed moderate to severe mitral regurgitation and global hypokinesis with impaired left ventricular systolic function and ejection fraction 35%. Plan per CT services is for coronary revascularization and mitral valve repair possibly tomorrow. I'm seeing this patient today 03/03/2023 in follow-up post elective coronary artery bypass grafts 2 with a BRITO to LAD and saphenous vein graft to the OM 1, mitral valve repair with a #26 Physio II annuloplasty ring, and left atrial appendage ligation. Patient remains intubated after the procedure, with vent settings of assist control, respiratory rate 16, tidal volume 360, FiO2 40%, and PEEP of 5. The patient's postoperative ABG showed a pO2 of 159, pCO2 of 33, and pH of 7.47. Postoperative chest x-ray showed the endotracheal tube approximately 2 cm from the alisson, NG tube coursing below the diaphragm, a pulmonary artery catheter appropriately place, and some postoperative cardiac prosthesis and sternotomy wires. No obvious pneumothorax., On my evaluation, the patient's most recent CO/CI is 2.6 and 1.5 respectively. Patient's blood pressure is hypotensive with a mean arterial pressure of 58. PA pressures are 41/17. Heart rhythm is normal sinus at about 60 bpm. Patient reportedly r eceived a total of 750 ML's of 5% albumin. Currently, norepinephrine is infusing at 7.7 mics per minute, milrinone infusing at 0.375 mics per kilogram per minute, amiodarone is infusing at 0.5 mg/m due to some perioperative atrial fibrillation, and lactated Ringer's is infusing at 50 ML's per hour. Patient has a mediastinal and bilateral right and left pleural chest tubes. The mediastinal chest tube has put out 73 mL of serosanguineous output, and both right and left pleural chest tube sites are wide together and put out approximately 330 ML's of serosanguineous output. Most recent CBC done around 2100 shows a WBC count of 10, hemoglobin 8, hematocrit 24, platelets 100,000. INR 1.3. Patient's BMP at that time showed a sodium 141, potassium 3.9, chloride 110, serum CO2 25, BUN 7, creatinine 0.44, glucose 129. Insulin infusion is currently paused. Urine output is marginal at 20 mL per hour. We did attempt weaning trial on this patient with a pressure support of 8 and a CPAP of 5. Patient was still quite lethargic from sedation and only pulling tidal volumes of 100-200. For this reason, and the fact that the patient's hemodynamic status is marginal at this time, we will hold off on extubating. We will reassess patient's readiness to wean once more alert and able to cooperate with weaning trial. Progress note dated 03/04/2023. The patient is seen today in room 267. Yesterday, the patient had multiple weaning trials, and did very poorly on all of them. The patient is status post two-vessel bypass grafting, and mitral valve repair, as well as left atrial appendage ligation. Currently, the patient is on volume assist control, rate 16, tidal volume 360, FiO2 40%, and PEEP of 5. Blood gases show pO2 106, pCO2 34, pH is 7.46. The patient's getting lactated Ringer's at 30 mL an hour, insulin, is currently on hold, nitroglycerin running at 5 mcg/m, dopamine at 2 mcg/kg/m, and Primacor 0.375 mcg/kg/m. The patient had another weaning trial today, with 10 of pressure support and 5 of CPAP. Weaning parameters including a tidal volume of only 261 mL, respiratory rate of 36, rapid shallow breathing index of 161, minute ventilation of 10 L/m, vital capacity of 310 mL, negative inspiratory force of -24, and she did have a positive cuff leak. Because of the elevated R SBI, the patient which surely fail a trial of extubation, and therefore is not extubated this morning. White count 9.8, hemoglobin 7.4, hematocrit 22, platelet count 95,000. Sodium 139, potassium 3.4, chlorides 109, CO2 25, BUN 10, creatinine 0.59. AST was 182. ALT was 122. Albumin was 3.0. Chest x-ray show typical postoperative changes. There is some bibasilar atelectasis. Progress note dated 03/05/2023. The patient is seen today in room 267. The patient is postop day #3, status post two-vessel bypass grafting, and mitral valve repair. The patient has had multiple weaning attempts, but each time, she does very poorly, early on in the trial. She has high blood pressures, high respiratory rates, high heart rate, and very low tidal volumes. Yesterday, she was placed on pressure support of 10, CPAP of 5, and apparently initially did okay with that, but at 10:00 or so, she was found to have significant respiratory distress, despite being on pressure support of 16. She was placed back on phimosis control. Currently, she is on a rate of 16, tidal volume 360, FiO2 40%, PEEP of 5. But gases show pO2 145, pCO2 30, pH is 7.53. This blood gases consistent with both respiratory and metabolic alkalosis. The patient is receiving vital high protein at 20 mL an hour, with a goal of 50. In addition, the patient's on a number of vasoactive drugs including dopamine at 2 mcg/kg/m, Primacor 0.25 mcg/kg/m, insulin 3 units an hour and nitroglycerin at 25 mcg/m. In addition, the patient's getting saline at 30 mL an hour. White count 10, hemoglobin 7.2, hematocrit 21.8, and platelet count 96,000. Sodium 138, potassium 3.6, chlorides O9, CO2 25, BUN 11, creatinine 0.54. Albumin is 2.8. Chest x-ray shows evidence of cardiomegaly, but no acute process. Progress note dated 03/06/2023. 77-year-old female seen today in room 267. I'm happy to report that she was finally extubated on 03/05/2023. Today's postop day #4. She's currently on 2 L. She's getting saline at keep vein open, Primacor at 0.125 mcg/kg/m, nitroglycerin at 20 mcg/m, and an insulin drip at 1.5 units an hour. She sitting in a chair next to the bed. She looks comfortable. White count 9.3, hemoglobin 7.7, hematocrit 23.2, and a platelet count of 106,000. Sodium is 139, potassium 3.5, chlorides 109, CO2 26, within normal BUN and creatinine. Calcium is 7.9. Chest x-ray shows postsurgical changes, and some mild basilar atelectasis. Progress note dated 03/07/2023. The patient is seen today in room 267. The patient is postop day #5. She was extubated on March 05. Currently, she is on room air. She's getting lactated Ringer's at 20 mL an hour. She is also getting Primacor at 0.125 mcg/kg/m. All in all, the patient's doing reasonably well. White count 10.4, hemoglobin 8.2, hematocrit 25.8, with a normal platelet count. Sodium 140, potassium 4.3, chlorides 108, CO2 28, within normal BUN and creatinine. The rest of the labs look reasonable. Liver enzymes are mildly elevated. Chest x-ray shows postsurgical changes, and mild pulmonary vascular congestion. Objective - Vital Signs Vital signs: Vital Signs Temp 98.1 F 03/07/23 08:00 Pulse 105 H 03/07/23 10:00 Resp 20 03/07/23 10:00 BP 130/69 03/07/23 10:00 Pulse Ox 97 03/07/23 10:00 FiO2 10 03/05/23 17:07 Intake & Output 03/06/23 03/07/23 03/07/23 18:59 06:59 18:59 Intake Total 509.002 462 104 Output Total 745 845 65 Balance -235.998 -383 39 Weight 93.4 kg 86.2 kg Intake: IV 463 312 104 0.9% @ 30 360 240 80 CO/CI 10 pressure bags 93 72 24 Intake, IV Titration 46.002 Amount Insulin Regular 100 unit 16.652 In Sodium Chloride 0.9% 100 ml @ Per Protocol IV .Q0M [facility] Rx#:[id number] Nitroglycerin-D5w Pmx 50 29.35 mg In Dextrose/Water 1 250ml.bag @ 5 MCG/MIN 1.5 mls/hr IV .Q24H [facility] Rx#: [id number] Oral 150 Output: Chest Tube Drainage 55 Chest Tube Left 20 Chest Tube Right 35 Urine 690 845 65 Other: Voiding Method Indwelling Catheter Indwelling Catheter ABP, PAP, CO, CI - Last Documented Arterial Blood Pressure 86/74 Pulmonary Artery Pressure 35/13 Cardiac Output 4.2 Cardiac Index 2.4 - Exam No acute distress, extubated, on room air. HEENT examination is grossly unremarkable. Neck supple. Full range of motion. No adenopathy thyromegaly or neck vein distention. Cardiovascular examination reveals regular rhythm rate. S1-S2 normal. No S3 or S4. No discernible murmur noted. Heart sounds are distant. Heart rate 105 bpm. Lungs reveal scattered bilateral rhonchi. No wheezes or crackles. Breath sounds equal bilaterally. Saturations are excellent on room air. Abdomen soft bowel sounds are heard. No masses or tenderness. Extremities are intact. No cyanosis clubbing or edema. Skin is without rash or lesion. Neurologic examination is brief but nonfocal. - Labs CBC & Chem 7: 03/07/23 04:20 03/07/23 04:20 Labs: Abnormal Lab Results - Last 24 Hours (Table) 03/06/23 03/06/23 03/06/23 Range/Units 11:16 12:50 14:17 RBC (3.80-5.40) m/uL Hgb (11.4-16.0) gm/dL Hct (34.0-46.0) % Chloride (98-107) mmol/L Glucose (74-99) mg/dL POC Glucose (mg/dL) 129 H 173 H 175 H (70-110) mg/dL Hemoglobin A1c (0.0-6.0) % Calcium (8.4-10.2) mg/dL AST (14-36) U/L ALT (4-34) U/L Total Protein (6.3-8.2) g/dL Albumin (3.5-5.0) g/dL 03/06/23 03/06/23 03/06/23 Range/Units 15:22 16:24 17:31 RBC (3.80-5.40) m/uL Hgb (11.4-16.0) gm/dL Hct (34.0-46.0) % Chloride (98-107) mmol/L Glucose (74-99) mg/dL POC Glucose (mg/dL) 142 H 131 H 149 H (70-110) mg/dL Hemoglobin A1c (0.0-6.0) % Calcium (8.4-10.2) mg/dL AST (14-36) U/L ALT (4-34) U/L Total Protein (6.3-8.2) g/dL Albumin (3.5-5.0) g/dL 03/06/23 03/07/23 03/07/23 Range/Units 20:40 04:20 04:20 RBC 2.96 L (3.80-5.40) m/uL Hgb 8.2 L (11.4-16.0) gm/dL Hct 25.8 L (34.0-46.0) % Chloride (98-107) mmol/L Glucose (74-99) mg/dL POC Glucose (mg/dL) 164 H (70-110) mg/dL Hemoglobin A1c 6.9 H (0.0-6.0) % Calcium (8.4-10.2) mg/dL AST (14-36) U/L ALT (4-34) U/L Total Protein (6.3-8.2) g/dL Albumin (3.5-5.0) g/dL 03/07/23 03/07/23 Range/Units 04:20 06:51 RBC (3.80-5.40) m/uL Hgb (11.4-16.0) gm/dL Hct (34.0-46.0) % Chloride 108 H (98-107) mmol/L Glucose 142 H (74-99) mg/dL POC Glucose (mg/dL) 135 H (70-110) mg/dL Hemoglobin A1c (0.0-6.0) % Calcium 8.3 L (8.4-10.2) mg/dL AST 60 H (14-36) U/L ALT 102 H (4-34) U/L Total Protein 5.1 L (6.3-8.2) g/dL Albumin 3.2 L (3.5-5.0) g/dL Assessment and Plan Assessment: Postop day #5, status post two-vessel bypass grafting, mitral valve repair, and left atrial appendage ligation. Routine postoperative ventilator management, with failure to wean from mechanical ventilation, status post extubation, 03/05/2023. History of CAD. Ischemic cardiomyopathy, with ejection fraction 35%. Moderate to severe mitral regurgitation. Severe persistent asthma. Previous tobacco dependence. Type 2 diabetes mellitus. Degenerative disc disease. Gastroesophageal reflux disease. Plan: Plan dated 03/04/2023. The patient was given another weaning trial this morning. She was placed on pressure support of 10, and CPAP of 5. Despite that, she had very poor weaning parameters, and we do very poorly of extubated. Her rapid shallow breathing index which is the best indicator of the patient's ability to breathe spontaneously, was 161. That number should be less than 105, and probably even less than 80. Nonetheless, the patient will continue on mechanical ventilation at this time. Continue to follow the patient. Labs, x-rays, medications are reviewed. The patient remains on a number drips including nitroglycerin, dopamine, and Primacor. Insulin is currently on hold. We will continue to follow make recommendations along the way. Plan dated 03/05/2023. The patient had to weaning trial yesterday, and failed miserably on both of them. This morning, we placed her back on pressure support, and she did very poorly. We'll try again later today. She just may need more time. She remains on many vasoactive drugs including dopamine, Primacor, and nitroglycerin. Labs, x-rays, and medications are reviewed. We will continue to follow the patient a nd make recommendations along the way. Prognosis is guarded. Today is postop day #3. Plan dated 03/06/2023. The patient was finally extubated yesterday March 05, postop day #3. Today is postop day #4. The patient is seen in room 267. The patient is currently on 2 L of oxygen. She remains on insulin drip, Primacor, and IV nitroglycerin. We encouraged the hourly use of the incentive spirometer. In addition we recommend deep breathing, coughing, clearing of secretions. Labs, x-rays, and medications are reviewed. Prognosis is guarded. Clinically doing much better today though. Plan dated 03/07/2023. The patient's doing very well. She has been weaned down to room air. The patient has no specific complaints today. She continues doing the incentive spirometer, every hour. We also recommend deep breathing, coughing, clearing of secretions. Labs, x-rays, and medications are reviewed. She was extubated on postop day #3. Today's postop day #5. We will continue to follow the patient and make recommendations along the way. Time with Patient: Less than 30
[2023-03-07 11:40] LABS: Glucose,Whole Blood 143 mg/dL (70-110)
--- NOTE | 2023-03-07 13:56 | P.PN ---
Subjective Progress Note Date: 03/07/23 77-year-old patient with past medical history significant for coronary artery disease, history of diabetes mellitus, asthma, hyperlipidemia osteoarthritis history of cardiomyopathy presented to the emergency department and admitted for cardiomyopathy and ischemic workup. Patient was status post cardiac c atheterization and was noted to have multivessel coronary artery disease and was referred to cardiothoracic surgery for surgical intervention. * Patient been worked up for CABG and seen by multiple specialties including pulmonary medicine, internal medicine consulted as well for medical management * Patient underwent elective coronary artery bypass grafts 2 with a BRITO to LAD and saphenous vein graft to the OM 1, mitral valve repair with a #26 Physio II annuloplasty ring, and left atrial appendage ligation * 03/05. Patient currently intubated, patient opening eyes, following commands. Patient has had multiple weaning attempt that failed. ICU following * * * 03/06. Patient seen and examined. Sitting upright in the chair, patient extubated yesterday, states she feels better. Plan is for patient chest tubes to be removed today 03/07. Patient seen and examined. Chest tubes were removed yesterday. Currently sitting upright in the chair. Complaining of shortness of breath on exertion REVIEW OF SYSTEMS: Denies any shortness of breath at this time. Complaining of chest pain at the site of surgical site. Denies any nausea, vomiting abdominal pain. Denies any lightheadedness or dizziness PHYSICAL EXAMINATION: GENERAL: Alert HEENT: Pupils are round and equally reacting to light. EOMI. No scleral icterus. No conjunctival pallor. Normocephalic, atraumatic. No pharyngeal erythema. No thyromegaly. CARDIOVASCULAR: S1 and S2 present. No murmurs, rubs, or gallops. PULMONARY: Chest is clear to auscultation, no wheezing or crackles. ABDOMEN: Soft, nontender, nondistended, normoactive bowel sounds. No palpable organomegaly. MUSCULOSKELETAL: No joint swelling or deformity. EXTREMITIES: No cyanosis, clubbing, or pedal edema. NEUROLOGICAL: Gross neurological examination did not reveal any focal deficits. SKIN: No rashes. Assessment and plan Coronary artery disease with left main disease status post CABG Ischemic cardiomyopathy and LV dysfunction with ejection fraction of 35-40% based on transthoracic echo from 09/2022 mitral regurgitation Acute respiratory failure requiring intubation and mechanical ventilation Postoperative anemia Severe persistent asthma Type 2 diabetes Degenerative disc disease GERD without esophagitis Plan Monitor vital signs Monitor CBC Monitor CMP Continue telemetry monitoring Encourage use of I-S Aggressive bronchopulmonary hygiene Primacor discontinued Cordis and arterial line to discontinued today Continue postoperative care per CT surgery team Continue aspirin, Plavix, Lipitor. Continue IV Lasix 20 mg twice a day Internal medicine team will follow along postoperatively patient in ICU POST CABG Objective - Vital Signs Vital signs: Vital Signs Temp 98.1 F 03/07/23 12:00 Pulse 97 03/07/23 12:30 Resp 30 H 03/07/23 13:00 BP 132/67 03/07/23 13:00 Pulse Ox 96 03/07/23 13:00 FiO2 10 03/05/23 17:07 Intake & Output 03/06/23 03/07/23 03/07/23 18:59 06:59 18:59 Intake Total 509.002 462 182 Output Total 745 845 490 Balance -235.998 -383 -308 Weight 93.4 kg 86.2 kg Intake: IV 463 312 182 0.9% @ 30 360 240 140 CO/CI 10 pressure bags 93 72 42 Intake, IV Titration 46.002 Amount Insulin Regular 100 unit 16.652 In Sodium Chloride 0.9% 100 ml @ Per Protocol IV .Q0M ANURAG Rx#:[id number] Nitroglycerin-D5w Pmx 50 29.35 mg In Dextrose/Water 1 250ml.bag @ 5 MCG/MIN 1.5 mls/hr IV .Q24H ANURAG Rx#: [id number] Oral 150 Output: Chest Tube Drainage 55 Chest Tube Left 20 Chest Tube Right 35 Urine 690 845 490 Other: Voiding Method Indwelling Catheter Indwelling Catheter Indwelling Catheter ABP, PAP, CO, CI - Last Documented Arterial Blood Pressure 117/64 Pulmonary Artery Pressure 35/13 Cardiac Output 4.2 Cardiac Index 2.4 - Labs CBC & Chem 7: 03/07/23 04:20 03/07/23 04:20 Labs: Abnormal Lab Results - Last 24 Hours (Table) 03/06/23 03/06/23 03/06/23 Range/Units 14:17 15:22 16:24 RBC (3.80-5.40) m/uL Hgb (11.4-16.0) gm/dL Hct (34.0-46.0) % Chloride (98-107) mmol/L Glucose (74-99) mg/dL POC Glucose (mg/dL) 175 H 142 H 131 H (70-110) mg/dL Hemoglobin A1c (0.0-6.0) % Calcium (8.4-10.2) mg/dL AST (14-36) U/L ALT (4-34) U/L Total Protein (6.3-8.2) g/dL Albumin (3.5-5.0) g/dL 03/06/23 03/06/23 03/07/23 Range/Units 17:31 20:40 04:20 RBC (3.80-5.40) m/uL Hgb (11.4-16.0) gm/dL Hct (34.0-46.0) % Chloride (98-107) mmol/L Glucose (74-99) mg/dL POC Glucose (mg/dL) 149 H 164 H (70-110) mg/dL Hemoglobin A1c 6.9 H (0.0-6.0) % Calcium (8.4-10.2) mg/dL AST (14-36) U/L ALT (4-34) U/L Total Protein (6.3-8.2) g/dL Albumin (3.5-5.0) g/dL 03/07/23 03/07/23 03/07/23 Range/Units 04:20 04:20 06:51 RBC 2.96 L (3.80-5.40) m/uL Hgb 8.2 L (11.4-16.0) gm/dL Hct 25.8 L (34.0-46.0) % Chloride 108 H (98-107) mmol/L Glucose 142 H (74-99) mg/dL POC Glucose (mg/dL) 135 H (70-110) mg/dL Hemoglobin A1c (0.0-6.0) % Calcium 8.3 L (8.4-10.2) mg/dL AST 60 H (14-36) U/L ALT 102 H (4-34) U/L Total Protein 5.1 L (6.3-8.2) g/dL Albumin 3.2 L (3.5-5.0) g/dL 03/07/23 Range/Units 11:39 RBC (3.80-5.40) m/uL Hgb (11.4-16.0) gm/dL Hct (34.0-46.0) % Chloride (98-107) mmol/L Glucose (74-99) mg/dL POC Glucose (mg/dL) 143 H (70-110) mg/dL Hemoglobin A1c (0.0-6.0) % Calcium (8.4-10.2) mg/dL AST (14-36) U/L ALT (4-34) U/L Total Protein (6.3-8.2) g/dL Albumin (3.5-5.0) g/dL
[2023-03-07 16:10] LABS: Glucose,Whole Blood 134 mg/dL (70-110)
[2023-03-07 20:51] LABS: Glucose,Whole Blood 155 mg/dL (70-110)
[2023-03-07] MEDS: INSULIN DETEMIR (LEVEMIR) 100 UNIT/ML SYR SQ SCH (20:51)
[2023-03-07] MEDS: SENNOSIDES-DOCUSATE SODIUM 1 EACH TAB PO SCH (20:52)
[2023-03-07] MEDS: LATANOPROST 0.005% OPHTH DROPS 2.5 ML BTL BOTH EYES SCH (21:04)
[2023-03-07] MEDS: VESICARE 10 MG PO SCH (23:38)
--- NOTE | 2023-03-07 23:38 | P.PN ---
Subjective HISTORY OF PRESENTING ILLNESS Patient is pleasant 77-year-old female with history of CAD, left main disease, hyperlipidemia, cardiomyopathy, moderate to severe mitral regurgitation, asthma, diabetes mellitus type 2, tobacco abuse, GERD, prior COVID-19 infection. She underwent CABG 2 as well as mitral valve repair and additionally had postoperat edmond anemia and thrombocytopenia with somewhat prolonged intubation. 03/07 Patient denies any chest pain or pressure. She admits to continued shortness breath however appears stable. She denies any lightheadedness or dizziness. Remains in sinus rhythm. PHYSICAL EXAMINATION Vital signs reviewed. CONSTITUTIONAL: No apparent distress. HEENT: Head is normocephalic. Pupils are equal, round. Sclerae anicteric. Mucous membranes of the mouth are moist. No JVD. No carotid bruit. CHEST EXAMINATION: Lungs are clear to auscultation. No chest wall tenderness is noted on palpation or with deep breathing. HEART EXAMINATION: Regular rate and rhythm. S1, S2 heard. No murmurs, gallops or rub. ABDOMEN: Soft, nontender. Positive bowel sounds. EXTREMITIES: 2+ peripheral pulses, no lower extremity edema and no calf tenderness. NEUROLOGIC EXAMINATION: Patient is awake, alert and oriented x3. ASSESSMENT CAD status post CABG 2 Hyperlipidemia Chronic systolic heart failure Ischemic cardiomyopathy COPD/restrictive lung disease Diabetes mellitus type 2 Tobacco abuse Anemia PLAN Patient appears to be making slow improvements. Continue metoprolol as well as aspirin and Plavix. Continue to monitor anemia. Appears to be slowly progressing. Further recommendations to follow. Objective - Vital Signs Vital signs: Vital Signs Temp 98.1 F 03/07/23 16:00 Pulse 96 03/07/23 22:00 Resp 28 H 03/07/23 22:00 BP 140/70 03/07/23 22:00 Pulse Ox 97 03/07/23 22:00 FiO2 10 03/07/23 16:00 Intake & Output 03/07/23 03/07/23 03/08/23 06:59 18:59 06:59 Intake Total 462 1134 Output Total 845 590 0 Balance -383 544 0 Weight 86.2 kg Intake: IV 312 234 0.9% @ 30 240 180 pressure bags 72 54 Oral 150 900 Output: Urine 845 590 0 Other: Voiding Method Indwelling Catheter Indwelling Catheter # Bowel Movements 2 ABP, PAP, CO, CI - Last Documented Arterial Blood Pressure 117/64 Pulmonary Artery Pressure 35/13 Cardiac Output 4.2 Cardiac Index 2.4 - Labs CBC & Chem 7: 03/07/23 04:20 03/07/23 04:20 Labs: Abnormal Lab Results - Last 24 Hours (Table) 03/07/23 03/07/23 03/07/23 Range/Units 04:20 04:20 04:20 RBC 2.96 L (3.80-5.40) m/uL Hgb 8.2 L (11.4-16.0) gm/dL Hct 25.8 L (34.0-46.0) % Chloride 108 H (98-107) mmol/L Glucose 142 H (74-99) mg/dL POC Glucose (mg/dL) (70-110) mg/dL Hemoglobin A1c 6.9 H (0.0-6.0) % Calcium 8.3 L (8.4-10.2) mg/dL AST 60 H (14-36) U/L ALT 102 H (4-34) U/L Total Protein 5.1 L (6.3-8.2) g/dL Albumin 3.2 L (3.5-5.0) g/dL 03/07/23 03/07/23 03/07/23 Range/Units 06:51 11:39 16:07 RBC (3.80-5.40) m/uL Hgb (11.4-16.0) gm/dL Hct (34.0-46.0) % Chloride (98-107) mmol/L Glucose (74-99) mg/dL POC Glucose (mg/dL) 135 H 143 H 134 H (70-110) mg/dL Hemoglobin A1c (0.0-6.0) % Calcium (8.4-10.2) mg/dL AST (14-36) U/L ALT (4-34) U/L Total Protein (6.3-8.2) g/dL Albumin (3.5-5.0) g/dL 03/07/23 Range/Units 20:50 RBC (3.80-5.40) m/uL Hgb (11.4-16.0) gm/dL Hct (34.0-46.0) % Chloride (98-107) mmol/L Glucose (74-99) mg/dL POC Glucose (mg/dL) 155 H (70-110) mg/dL Hemoglobin A1c (0.0-6.0) % Calcium (8.4-10.2) mg/dL AST (14-36) U/L ALT (4-34) U/L Total Protein (6.3-8.2) g/dL Albumin (3.5-5.0) g/dL
[2023-03-08 06:17] LABS: HCT 27.9 % (34.0-46.0); HGB 9.1 gm/dL (11.4-16.0); Hypochromasia Slight; MCH 29.3 pg (25.0-35.0); MCHC 32.5 g/dL (31.0-37.0); Mean Platelet Volume 8.1; Platelet Count 198 k/uL (150-450); RDW 14.9 % (11.5-15.5)
[2023-03-08 06:29] LABS: African American GFR (CKD) >90 (>60 ml/min/1.73 sqM); Anion Gap 5 mmol/L; Blood Urea Nitrogen 16 mg/dL (7-17); Calcium 8.7 mg/dL (8.4-10.2); Carbon Dioxide 29 mmol/L (22-30); Chloride 108 mmol/L (98-107); Glucose 113 mg/dL (74-99); Magnesium 2.1 mg/dL (1.6-2.3); Non-African American GFR(CKD) 86 (>60 ml/min/1.73 sqM); Sodium 142 mmol/L (137-145)
[2023-03-08 06:35] LABS: Glucose,Whole Blood 131 mg/dL (70-110)
[2023-03-08] MEDS: PANTOPRAZOLE 40 MG TABLET PO SCH (06:43)
[2023-03-08] MEDS: INSULIN ASPART (NovoLOG) 100 UNIT/ML VIAL SQ SCH ×4 (06:44→20:57)
--- NOTE | 2023-03-08 06:49 | XR ---
EXAMINATION TYPE: XR chest 1V portable DATE OF EXAM: 03/08/2023 CLINICAL HISTORY: Difficulty breathing progress study. Postoperative cardiac surgery. TECHNIQUE: Single AP portable upright view of the chest is obtained. COMPARISON: Chest x-ray from one day earlier FINDINGS: Overlying sternal wires and mediastinal clips along with left atrial appendage and cardiac valve surgical changes are all redemonstrated. Persistent cardiomegaly with some increased interstitial markings towards the periphery. No pneumotho rax seen bilaterally. Surgical changes right humeral head redemonstrated. IMPRESSION: Cardiomegaly with mild interstitial edema remains present. No significant change from one day earlier.
--- NOTE | 2023-03-08 08:14 | P.PN ---
Subjective Progress Note Date: 03/08/23 Principal diagnosis: Coronary artery disease with left main disease. History of hyperlipidemia, cardiomyopathy with decreased systolic function, moderate to severe central mitral regurgitation, asthma with multiple exacerbations, diabetes mellitus, previous tobacco dependence, GERD, osteoarthritis, covid infection in September 2022 POD #6 coronary artery bypass graft 2 with left internal thoracic artery to left anterior descending artery, reverse saphenous vein graft from the aorta to the first obtuse marginal, mitral valve repair with a #26 physio-2 annuloplasty ring, endoscopic harvesting of the left greater saphenous vein, left atrial appendage ligation with a #35 mm AtriClip, graft flow measurements using the [employer] flowmeter system, intraoperative transesophageal echocardiogram and insertion of right common femoral arterial line by anesthesia Postoperative acute blood loss anemia and thrombocytopenia, expected given hemodilution and cardiopulmonary bypass pump Prolonged mechanical ventilation, expected given the patient's severe restrictive lung disease Hypotension requiring pressor use, resolved The patient was seen and examined this morning standing up in the intensive care unit in no acute distress. Remains in sinus rhythm, hemodynamically stable. States pain is controlled on current medication regimen, does continue to complain of some shortness of breath. Patient is not taking deep breaths, only achieving 500 mL on her incentive spirometer. Remains on room air. Needs a lot of encouragement to ambulate and take deep breaths. No other new complaints. Objective - Vital Signs Vital signs: Vital Signs Temp 98.1 F 03/07/23 16:00 Pulse 105 H 03/08/23 05:00 Resp 14 03/08/23 07:00 BP 163/90 03/08/23 07:00 Pulse Ox 93 L 03/08/23 07:00 FiO2 10 03/07/23 16:00 Intake & Output 03/07/23 03/08/23 03/08/23 18:59 06:59 18:59 Intake Total 1134 275 Output Total 590 900 Balance 544 -625 Intake: IV 234 0.9% @ 30 180 pressure bags 54 Oral 900 275 Output: Urine 590 900 Other: Voiding Method Indwelling Catheter External Catheter # Voids 1 # Bowel Movements 2 ABP, PAP, CO, CI - Last Documented Arterial Blood Pressure 117/64 Pulmonary Artery Pressure 35/13 Cardiac Output 4.2 Cardiac Index 2.4 - Exam CONSTITUTIONAL: Appears comfortable, somewhat cooperative, no acute distress RESPIRATORY: Lungs sounds very diminished bilaterally. Respirations even, nonlabored. Currently on room air with oxygen saturation 93%. Still only able to achieve 500 mL on incentive spirometry. Strong cough. CARDIOVASCULAR: S1, S2 present. Regular rate and rhythm, sinus rhythm on telemetry. Sternum stable. Palpable peripheral pulses bilaterally. No edema present. No calf pain or tenderness noted. Heart hugger in place with patient demonstrating appropriate use. Antiembolism stockings, SCDs present. GASTROINTESTINAL: Abdomen soft, nontender, nondistended. Active bowel sounds present 4 quadrants. Tolerating diet. Positive bowel movement x2 03/07/23 GENITOURINARY: Pardo discontinued yesterday. Patient continues to void approximately 300 mL at a time although has been incontinent as well INTEGUMENTARY: Skin is warm and dry with evidence of good perfusion. Anterior chest incision well approximated and covered with dry intact dressing. Left lower extremity EVH site well approximated without redness or drainage. NEUROLOGIC: Cranial nerves II through XII intact MUSKULOSKELETAL: Able to move all extremities, strength equal bilaterally PSYCHIATRIC: Alert and oriented to person place and time, appropriate affect, intact judgment and insight INVASIVE LINES AND TUBES: A/V epicardial pacemaker wires present, grounded - Allied health notes Allied health notes reviewed: nursing - Labs CBC & Chem 7: 03/08/23 05:20 03/08/23 05:20 Labs: Abnormal Lab Results - Last 24 Hours (Table) 03/07/23 03/07/23 03/07/23 Range/Units 04:20 11:39 16:07 WBC (3.8-10.6) k/uL RBC (3.80-5.40) m/uL Hgb (11.4-16.0) gm/dL Hct (34.0-46.0) % Chloride (98-107) mmol/L Glucose (74-99) mg/dL POC Glucose (mg/dL) 143 H 134 H (70-110) mg/dL Hemoglobin A1c 6.9 H (0.0-6.0) % 03/07/23 03/08/23 03/08/23 Range/Units 20:50 05:20 05:20 WBC 14.0 H (3.8-10.6) k/uL RBC 3.10 L (3.80-5.40) m/uL Hgb 9.1 L (11.4-16.0) gm/dL Hct 27.9 L (34.0-46.0) % Chloride 108 H (98-107) mmol/L Glucose 113 H (74-99) mg/dL POC Glucose (mg/dL) 155 H (70-110) mg/dL Hemoglobin A1c (0.0-6.0) % 03/08/23 Range/Units 06:34 WBC (3.8-10.6) k/uL RBC (3.80-5.40) m/uL Hgb (11.4-16.0) gm/dL Hct (34.0-46.0) % Chloride (98-107) mmol/L Glucose (74-99) mg/dL POC Glucose (mg/dL) 131 H (70-110) mg/dL Hemoglobin A1c (0.0-6.0) % - Imaging and Cardiology Chest x-ray: report reviewed, image reviewed Assessment and Plan Assessment: Coronary artery disease with left main disease, status post 2 vessel CABG Hyperlipidemia, treated, cholesterol 148, LDL 51, triglycerides 201 Cardiomyopathy/chronic systolic heart failure with decreased systolic function, EF 35% on MARY 02/28/23 Moderate to severe central mitral regurgitation on MARY 02/28/23, status post mitral valve repair Asthma with multiple exacerbations, relieved with steroids Severe restrictive lung disease, FEV1 42% of predicted Diabetes mellitus, hemoglobin A1c 6.9% Previous tobacco dependence GERD Osteoarthritis Covid infection in September 2022 Postoperative acute blood loss anemia, expected Postoperative prolonged mechanical ventilation, expected Hypotension requiring pressor use, resolved Plan: Continue to maximize medical therapy with aspirin, statin, Plavix, and beta analisa with hold parameters. Will increase beta analisa as tolerated, increase to 50 mg twice daily today Continue Cozaar, hydralazine for afterload reduction Transition to oral steroids per her home dose Encourage incentive spirometry 10 times every hour while awake. Bronchodilators per pulmonology. Will monitor daily labs and chest x-rays. Electrolyte replacement per protocol. Continue IV Lasix GI/DVT prophylaxis. Pain control with current medication regimen. Increase activity, ambulate as tolerated, PT/OT/cardiac rehab following Insulin management per internal medicine service. Patient is diabetic with hemoglobin A1c 6.9%. Continue patient's home vesicare for overactive bladder Strict accurate intake and output Daily weights More recommendations to follow based
[2023-03-08] MEDS: ALBUTEROL 90 MCG INHALATION SCH ×4 (08:39→21:05)
[2023-03-08] MEDS: hydrALAZINE HCL 25 MG TAB PO SCH ×2 (09:15→15:52)
[2023-03-08] MEDS: METOPROLOL TARTRATE 50 MG TAB PO SCH ×2 (09:15→20:56)
[2023-03-08] MEDS: ASCORBIC ACID 500 MG TAB PO SCH (09:32)
[2023-03-08] MEDS: ASPIRIN 325 MG TAB PO SCH (09:32)
[2023-03-08] MEDS: FUROSEMIDE 10 MG/ML 2 ML VIAL IV SCH ×2 (09:32→20:57)
[2023-03-08] MEDS: CLOPIDOGREL 75 MG TAB PO SCH (09:33)
[2023-03-08] MEDS: MUPIROCIN 2% OINT 22 GM TUBE TOPICAL SCH ×2 (09:33→20:58)
[2023-03-08] MEDS: predniSONE 10 MG TAB PO SCH (09:33)
[2023-03-08] MEDS: MULTIVITAMINS, THERA 1 EACH TAB PO SCH (09:33)
[2023-03-08] MEDS: LOSARTAN 25 MG TAB PO SCH (09:33)
[2023-03-08] MEDS: HEPARIN SODIUM,PORCINE/PF 5,000 UNIT/0.5 ML SYRINGE SQ SCH ×2 (09:33→15:52)
[2023-03-08] MEDS: POTASSIUM BICARBONATE/CIT AC 20 MEQ TABLET.EFF OG-TUBE SCH ×2 (09:33→20:56)
[2023-03-08] MEDS: ATORVASTATIN 40 MG TAB PO SCH (09:33)
[2023-03-08 11:26] LABS: Glucose,Whole Blood 158 mg/dL (70-110)
--- NOTE | 2023-03-08 11:42 | P.PN ---
Subjective Progress Note Date: 03/08/23 Principal diagnosis: ICU/ventilator management. Coronary artery disease and mitral valve regurgitation This is a 77-year-old female with history of severe persistent bronchial asthma, former smoker quit in 1973, however looking back at her PFT in the office it was basically unremarkable and nonobstructive in nature. Nonetheless the patient has been experiencing over the last 3 years intermittent episodes of cough wheezing and shortness of breath, and has been requiring multiple courses of steroids, and at one point she was maintained on prednisone for her asthma by Dr. Swift. Patient also has multiple ALLERGIES and she cannot tolerate a lot of the inhalers as listed on her ALLERGY list. Patient was last admitted to the hospital and we saw on consultation on 01/12/2023, patient ended up on prednisone 10 mg daily and again very she inhalers that she can use at home. He goes of presumptive ALLERGY to inhalers. Patient was recently evaluated by Dr. Montes for her abnormal LV dysfunction ejection fraction of 35-40%, and she underwent a cardiac catheterization which showed demonstrated left main coronary artery disease due to this finding, the patient was referred to cardiothoracic surgery for surgical intervention, patient is being worked up for surgery, and part of the workup included a pulmonary consultation for preoperative clearance. Presently the patient denies any shortness of breath at rest, no cough no wheezing she does have chronic dyspnea on exertion. Again I reviewed her last PFT in the office and it was relatively normal based on this alone, I would clear the patient for surgery as scheduled, the benefits of surgery outweigh the risks The patient is seen today 03/01/2023 in follow-up on the cardiac floor. She is currently sitting up in bed. Awake and alert in no acute distress. No worsening shortness of breath, cough or congestion. Her asthma is currently inactive and stable. She is maintaining good O2 saturations in the upper 90s on room air. Afebrile. Hemodynamically stable. She is continued on her bronchodilators. Resumed on her prednisone. MARY from yesterday revealed moderate to severe mitral regurgitation and global hypokinesis with impaired left ventricular systolic function and ejection fraction 35%. Plan per CT services is for coronary revascularization and mitral valve repair possibly tomorrow. I'm seeing this patient today 03/03/2023 in follow-up post elective coronary artery bypass grafts 2 with a BRITO to LAD and saphenous vein graft to the OM 1, mitral valve repair with a #26 Physio II annuloplasty ring, and left atrial appendage ligation. Patient remains intubated after the procedure, with vent settings of assist control, respiratory rate 16, tidal volume 360, FiO2 40%, and PEEP of 5. The patient's postoperative ABG showed a pO2 of 159, pCO2 of 33, and pH of 7.47. Postoperative chest x-ray showed the endotracheal tube approximately 2 cm from the alisson, NG tube coursing below the diaphragm, a pulmonary artery catheter appropriately place, and some postoperative cardiac prosthesis and sternotomy wires. No obvious pneumothorax., On my evaluation, the patient's most recent CO/CI is 2.6 and 1.5 respectively. Patient's blood pressure is hypotensive with a mean arterial pressure of 58. PA pressures are 41/17. Heart rhythm is normal sinus at about 60 bpm. Patient reportedly r eceived a total of 750 ML's of 5% albumin. Currently, norepinephrine is infusing at 7.7 mics per minute, milrinone infusing at 0.375 mics per kilogram per minute, amiodarone is infusing at 0.5 mg/m due to some perioperative atrial fibrillation, and lactated Ringer's is infusing at 50 ML's per hour. Patient has a mediastinal and bilateral right and left pleural chest tubes. The mediastinal chest tube has put out 73 mL of serosanguineous output, and both right and left pleural chest tube sites are wide together and put out approximately 330 ML's of serosanguineous output. Most recent CBC done around 2100 shows a WBC count of 10, hemoglobin 8, hematocrit 24, platelets 100,000. INR 1.3. Patient's BMP at that time showed a sodium 141, potassium 3.9, chloride 110, serum CO2 25, BUN 7, creatinine 0.44, glucose 129. Insulin infusion is currently paused. Urine output is marginal at 20 mL per hour. We did attempt weaning trial on this patient with a pressure support of 8 and a CPAP of 5. Patient was still quite lethargic from sedation and only pulling tidal volumes of 100-200. For this reason, and the fact that the patient's hemodynamic status is marginal at this time, we will hold off on extubating. We will reassess patient's readiness to wean once more alert and able to cooperate with weaning trial. Progress note dated 03/04/2023. The patient is seen today in room 267. Yesterday, the patient had multiple weaning trials, and did very poorly on all of them. The patient is status post two-vessel bypass grafting, and mitral valve repair, as well as left atrial appendage ligation. Currently, the patient is on volume assist control, rate 16, tidal volume 360, FiO2 40%, and PEEP of 5. Blood gases show pO2 106, pCO2 34, pH is 7.46. The patient's getting lactated Ringer's at 30 mL an hour, insulin, is currently on hold, nitroglycerin running at 5 mcg/m, dopamine at 2 mcg/kg/m, and Primacor 0.375 mcg/kg/m. The patient had another weaning trial today, with 10 of pressure support and 5 of CPAP. Weaning parameters including a tidal volume of only 261 mL, respiratory rate of 36, rapid shallow breathing index of 161, minute ventilation of 10 L/m, vital capacity of 310 mL, negative inspiratory force of -24, and she did have a positive cuff leak. Because of the elevated R SBI, the patient which surely fail a trial of extubation, and therefore is not extubated this morning. White count 9.8, hemoglobin 7.4, hematocrit 22, platelet count 95,000. Sodium 139, potassium 3.4, chlorides 109, CO2 25, BUN 10, creatinine 0.59. AST was 182. ALT was 122. Albumin was 3.0. Chest x-ray show typical postoperative changes. There is some bibasilar atelectasis. Progress note dated 03/05/2023. The patient is seen today in room 267. The patient is postop day #3, status post two-vessel bypass grafting, and mitral valve repair. The patient has had multiple weaning attempts, but each time, she does very poorly, early on in the trial. She has high blood pressures, high respiratory rates, high heart rate, and very low tidal volumes. Yesterday, she was placed on pressure support of 10, CPAP of 5, and apparently initially did okay with that, but at 10:00 or so, she was found to have significant respiratory distress, despite being on pressure support of 16. She was placed back on phimosis control. Currently, she is on a rate of 16, tidal volume 360, FiO2 40%, PEEP of 5. But gases show pO2 145, pCO2 30, pH is 7.53. This blood gases consistent with both respiratory and metabolic alkalosis. The patient is receiving vital high protein at 20 mL an hour, with a goal of 50. In addition, the patient's on a number of vasoactive drugs including dopamine at 2 mcg/kg/m, Primacor 0.25 mcg/kg/m, insulin 3 units an hour and nitroglycerin at 25 mcg/m. In addition, the patient's getting saline at 30 mL an hour. White count 10, hemoglobin 7.2, hematocrit 21.8, and platelet count 96,000. Sodium 138, potassium 3.6, chlorides O9, CO2 25, BUN 11, creatinine 0.54. Albumin is 2.8. Chest x-ray shows evidence of cardiomegaly, but no acute process. Progress note dated 03/06/2023. 77-year-old female seen today in room 267. I'm happy to report that she was finally extubated on 03/05/2023. Today's postop day #4. She's currently on 2 L. She's getting saline at keep vein open, Primacor at 0.125 mcg/kg/m, nitroglycerin at 20 mcg/m, and an insulin drip at 1.5 units an hour. She sitting in a chair next to the bed. She looks comfortable. White count 9.3, hemoglobin 7.7, hematocrit 23.2, and a platelet count of 106,000. Sodium is 139, potassium 3.5, chlorides 109, CO2 26, within normal BUN and creatinine. Calcium is 7.9. Chest x-ray shows postsurgical changes, and some mild basilar atelectasis. Progress note dated 03/07/2023. The patient is seen today in room 267. The patient is postop day #5. She was extubated on March 05. Currently, she is on room air. She's getting lactated Ringer's at 20 mL an hour. She is also getting Primacor at 0.125 mcg/kg/m. All in all, the patient's doing reasonably well. White count 10.4, hemoglobin 8.2, hematocrit 25.8, with a normal platelet count. Sodium 140, potassium 4.3, chlorides 108, CO2 28, within normal BUN and creatinine. The rest of the labs look reasonable. Liver enzymes are mildly elevated. Chest x-ray shows postsurgical changes, and mild pulmonary vascular congestion. Progress note dated 03/08/2023. The patient is seen today in room 267. Today is postop day #6. She was e xtubated on 03/05/2023. Currently, the patient is on room air. She's not receiving any IV fluids. Clinically, she's doing much better. White count is 14, hemoglobin 9.1, hematocrit 27.9, within normal platelet count. Sodium 142, potassium 4, chlorides 108, CO2 29, BUN 16, creatinine 0.67. Chest x-ray shows some cardiomegaly, and some bibasilar infiltrates or atelectasis. Objective - Vital Signs Vital signs: Vital Signs Temp 100.0 F H 03/08/23 08:00 Pulse 96 03/08/23 11:00 Resp 24 03/08/23 11:00 BP 141/73 03/08/23 11:00 Pulse Ox 92 L 03/08/23 11:00 FiO2 10 03/08/23 08:00 Intake & Output 03/07/23 03/08/23 03/08/23 18:59 06:59 18:59 Intake Total 1134 275 250 Output Total 590 900 800 Balance 544 625 -550 Intake: IV 234 0.9% @ 30 180 pressure bags 54 Oral 900 275 250 Output: Urine 590 900 800 Other: Voiding Method Indwelling Catheter External Catheter External Catheter # Voids 2 # Bowel Movements 2 ABP, PAP, CO, CI - Last Documented Arterial Blood Pressure 117/64 Pulmonary Artery Pressure 35/13 Cardiac Output 4.2 Cardiac Index 2.4 - Exam No acute distress, extubated, on room air. HEENT examination is grossly unremarkable. Neck supple. Full range of motion. No adenopathy thyromegaly or neck vein distention. Cardiovascular examination reveals regular rhythm rate. S1-S2 normal. No S3 or S4. No discernible murmur noted. Heart sounds are distant. Heart rate 96 bpm. Lungs reveal scattered bilateral rhonchi. No wheezes or crackles. Breath sounds equal bilaterally. Saturations are excellent on room air. Abdomen soft bowel sounds are heard. No masses or tenderness. Extremities are intact. No cyanosis clubbing or edema. Skin is without rash or lesion. Neurologic examination is brief but nonfocal. - Labs CBC & Chem 7: 03/08/23 05:20 03/08/23 05:20 Labs: Abnormal Lab Results - Last 24 Hours (Table) 03/07/23 03/07/23 03/07/23 Range/Units 11:39 16:07 20:50 WBC (3.8-10.6) k/uL RBC (3.80-5.40) m/uL Hgb (11.4-16.0) gm/dL Hct (34.0-46.0) % Chloride (98-107) mmol/L Glucose (74-99) mg/dL POC Glucose (mg/dL) 143 H 134 H 155 H (70-110) mg/dL 03/08/23 03/08/23 03/08/23 Range/Units 05:20 05:20 06:34 WBC 14.0 H (3.8-10.6) k/uL RBC 3.10 L (3.80-5.40) m/uL Hgb 9.1 L (11.4-16.0) gm/dL Hct 27.9 L (34.0-46.0) % Chloride 108 H (98-107) mmol/L Glucose 113 H (74-99) mg/dL POC Glucose (mg/dL) 131 H (70-110) mg/dL 03/08/23 Range/Units 11:24 WBC (3.8-10.6) k/uL RBC (3.80-5.40) m/uL Hgb (11.4-16.0) gm/dL Hct (34.0-46.0) % Chloride (98-107) mmol/L Glucose (74-99) mg/dL POC Glucose (mg/dL) 158 H (70-110) mg/dL Assessment and Plan Assessment: Postop day #6, status post two-vessel bypass grafting, mitral valve repair, and left atrial appendage ligation. Routine postoperative ventilator management, with failure to wean from mechanical ventilation, status post extubation, 03/05/2023. History of CAD. Ischemic cardiomyopathy, with ejection fraction 35%. Moderate to severe mitral regurgitation. Severe persistent asthma. Previous tobacco dependence. Type 2 diabetes mellitus. Degenerative disc disease. Gastroesophageal reflux disease. Plan: Plan dated 03/04/2023. The patient was given another weaning trial this morning. She was placed on pressure support of 10, and CPAP of 5. Despite that, she had very poor weaning parameters, and we do very poorly of extubated. Her rapid shallow breathing index which is the best indicator of the patient's ability to breathe spontaneously, was 161. That number should be less than 105, and probably even less than 80. Nonetheless, the patient will continue on mechanical ventilation at this time. Continue to follow the patient. Labs, x-rays, medications are reviewed. The patient remains on a number drips including nitroglycerin, dopamine, and Primacor. Insulin is currently on hold. We will continue to follow make recommendations along the way. Plan dated 03/05/2023. The patient had to weaning trial yesterday, and failed miserably on both of them. This morning, we placed her back on pressure support, and she did very poorly. We'll try again later today. She just may need more time. She remains on many vasoactive drugs including dopamine, Primacor, and nitroglycerin. Labs, x-rays, and medications are reviewed. We will continue to follow the patient and make recommendations along the way. Prognosis is guarded. Today is postop day #3. Plan dated 03/06/2023. The patient was finally extubated yesterday March 05, postop day #3. Today is postop day #4. The patient is seen in room 267. The patient is currently on 2 L of oxygen. She remains on insulin drip, Primacor, and IV nitroglycerin. We encouraged the hourly use of the incentive spirometer. In addition we recommend deep breathing, coughing, clearing of secretions. Labs, x-rays, and medications are reviewed. Prognosis is guarded. Clinically doing much better today though. Plan dated 03/07/2023. The patient's doing very well. She has been weaned down to room air. The patient has no specific complaints today. She continues doing the incentive spirometer, every hour. We also recommend deep breathing, coughing, clearing of secretions. Labs, x-rays, and medications are reviewed. She was extubated on postop day #3. Today's postop day #5. We will continue to follow the patient and make recommendations along the way. Plan dated 03/08/2023. Currently, the patient is not receiving any supplemental oxygen, or any IV fluids. We will continue to follow the patient make recommendations along the way. I believe cardiothoracic surgery is thinking about rehab for this patient. Labs, x-rays, and medications are reviewed. Prognosis is certainly guarded. We will continue to follow along. Time with Patient: Less than 30
[2023-03-08] MEDS ORDERED: LOSARTAN 25 MG TAB PO STA (12:29)
--- NOTE | 2023-03-08 12:29 | P.PN ---
Subjective HISTORY OF PRESENTING ILLNESS Patient is pleasant 77-year-old female with history of CAD, left main disease, hyperlipidemia, cardiomyopathy, moderate to severe mitral regurgitation, asthma, diabetes mellitus type 2, tobacco abuse, GERD, prior COVID-19 infection. She underwent CABG 2 as well as mitral valve repair and additionally had postoperat edmond anemia and thrombocytopenia with somewhat prolonged intubation. 03/07 Patient denies any chest pain or pressure. She admits to continued shortness breath however appears stable. She denies any lightheadedness or dizziness. Remains in sinus rhythm. 03/08 Patient seen and examined. Patient still has some dyspnea however states overall she is feeling somewhat better. She denies any chest pain or pressure. Blood pressures have been somewhat elevated in the 140s to 160s systolic and metoprolol had been increased this morning. We will increase losartan from 25- 50. Has had good urine output with the Lasix. Creatinine stable. PHYSICAL EXAMINATION Vital signs reviewed. CONSTITUTIONAL: No apparent distress. HEENT: Head is normocephalic. Pupils are equal, round. Sclerae anicteric. Mucous membranes of the mouth are moist. No JVD. No carotid bruit. CHEST EXAMINATION: Lungs are clear to auscultation. No chest wall tenderness is noted on palpation or with deep breathing. HEART EXAMINATION: Regular rate and rhythm. S1, S2 heard. No murmurs, gallops or rub. ABDOMEN: Soft, nontender. Positive bowel sounds. EXTREMITIES: 2+ peripheral pulses, no lower extremity edema and no calf tend erness. NEUROLOGIC EXAMINATION: Patient is awake, alert and oriented x3. ASSESSMENT CAD status post CABG 2 Hyperlipidemia Chronic systolic heart failure Ischemic cardiomyopathy COPD/restrictive lung disease Diabetes mellitus type 2 Tobacco abuse Anemia PLAN Patient mildly hypertensive with systolics in the 140s to 160s and metoprolol had been increased this morning. We will additionally increase losartan temp to optimize heart failure regimen as able. Continue diuresis. Monitor creatinine closely. Further recommendations to follow. Objective - Vital Signs Vital signs: Vital Signs Temp 100.0 F H 03/08/23 08:00 Pulse 92 03/08/23 12:00 Resp 20 03/08/23 12:00 BP 166/85 03/08/23 12:00 Pulse Ox 97 03/08/23 12:00 FiO2 10 03/08/23 11:42 Intake & Output 03/07/23 03/08/23 03/08/23 18:59 06:59 18:59 Intake Total 1134 275 250 Output Total 590 900 800 Balance 326 -159 -881 Intake: IV 234 0.9% @ 30 180 pressure bags 54 Oral 900 275 250 Output: Urine 590 900 800 Other: Voiding Method Indwelling Catheter External Catheter External Catheter # Voids 2 # Bowel Movements 2 ABP, PAP, CO, CI - Last Documented Arterial Blood Pressure 117/64 Pulmonary Artery Pressure 35/13 Cardiac Output 4.2 Cardiac Index 2.4 - Labs CBC & Chem 7: 03/08/23 05:20 03/08/23 05:20 Labs: Abnormal Lab Results - Last 24 Hours (Table) 03/07/23 03/07/23 03/08/23 Range/Units 16:07 20:50 05:20 WBC 14.0 H (3.8-10.6) k/uL RBC 3.10 L (3.80-5.40) m/uL Hgb 9.1 L (11.4-16.0) gm/dL Hct 27.9 L (34.0-46.0) % Chloride (98-107) mmol/L Glucose (74-99) mg/dL POC Glucose (mg/dL) 134 H 155 H (70-110) mg/dL 03/08/23 03/08/23 03/08/23 Range/Units 05:20 06:34 11:24 WBC (3.8-10.6) k/uL RBC (3.80-5.40) m/uL Hgb (11.4-16.0) gm/dL Hct (34.0-46.0) % Chloride 108 H (98-107) mmol/L Glucose 113 H (74-99) mg/dL POC Glucose (mg/dL) 131 H 158 H (70-110) mg/dL
--- NOTE | 2023-03-08 13:11 | P.PN ---
Subjective Progress Note Date: 03/08/23 77-year-old patient with past medical history significant for coronary artery disease, history of diabetes mellitus, asthma, hyperlipidemia osteoarthritis history of cardiomyopathy presented to the emergency department and admitted for cardiomyopathy and ischemic workup. Patient was status post cardiac c atheterization and was noted to have multivessel coronary artery disease and was referred to cardiothoracic surgery for surgical intervention. * Patient been worked up for CABG and seen by multiple specialties including pulmonary medicine, internal medicine consulted as well for medical management * Patient underwent elective coronary artery bypass grafts 2 with a BRITO to LAD and saphenous vein graft to the OM 1, mitral valve repair with a #26 Physio II annuloplasty ring, and left atrial appendage ligation * 03/05. Patient currently intubated, patient opening eyes, following commands. Patient has had multiple weaning attempt that failed. ICU following * * * 03/06. Patient seen and examined. Sitting upright in the chair, patient extubated yesterday, states she feels better. Plan is for patient chest tubes to be removed today 03/07. Patient seen and examined. Chest tubes were removed yesterday. Currently sitting upright in the chair. Complaining of shortness of breath on exertion 03/08. Patient seen and examined. No acute issues overnight vital signs this morning are temperature afebrile, respiratory rate 20, heart rate 92, blood pressure 166/85. White count this morning is 14, hemoglobin 9.1 REVIEW OF SYSTEMS: Denies shortness of breath at rest, get short of breath on exertion Complaining of chest pain at the site of surgical site. Denies any nausea, vomiting abdominal pain. Denies any lightheadedness or dizziness PHYSICAL EXAMINATION: GENERAL: Alert HEENT: Pupils are round and equally reacting to light. EOMI. No scleral icterus. No conjunctival pallor. Normocephalic, atraumatic. No pharyngeal erythema. No thyromegaly. CARDIOVASCULAR: S1 and S2 present. No murmurs, rubs, or gallops. PULMONARY: Chest is clear to auscultation, no wheezing or crackles. ABDOMEN: Soft, nontender, nondistended, normoactive bowel sounds. No palpable organomegaly. MUSCULOSKELETAL: No joint swelling or deformity. EXTREMITIES: No cyanosis, clubbing, or pedal edema. NEUROLOGICAL: Gross neurological examination did not reveal any focal deficits. SKIN: No rashes. Assessment and plan Coronary artery disease with left main disease status post CABG Ischemic cardiomyopathy and LV dysfunction with ejection fraction of 35-40% based on transthoracic echo from 09/2022 mitral regurgitation Acute respiratory failure requiring intubation and mechanical ventilation Postoperative anemia Severe persistent asthma Type 2 diabetes Degenerative disc disease GERD without esophagitis Plan Monitor vital signs Monitor CBC Monitor CMP Continue telemetry monitoring Encourage use of I-S Aggressive bronchopulmonary hygiene Continue to maximize medical therapy with aspirin, statin, Plavix, Lopressor 50 mg twice a day. Losartan dose increased to 50 mg Continue postoperative care per CT surgery team Continue aspirin, Plavix, Lipitor. Continue IV Lasix 20 mg twice a day Follow-up on cardiology recommendations Objective - Vital Signs Vital signs: Vital Signs Temp 100.0 F H 03/08/23 08:00 Pulse 94 03/08/23 13:00 Resp 20 03/08/23 13:00 BP 146/70 03/08/23 13:00 Pulse Ox 91 L 03/08/23 13:00 FiO2 10 03/08/23 11:42 Intake & Output 03/07/23 03/08/23 03/08/23 18:59 06:59 18:59 Intake Total 1134 275 450 Output Total 590 900 800 Balance 544 -625 -350 Intake: IV 234 0.9% @ 30 180 pressure bags 54 Oral 900 275 450 Output: Urine 590 900 800 Other: Voiding Method Indwelling Catheter External Catheter External Catheter # Voids 2 # Bowel Movements 2 ABP, PAP, CO, CI - Last Documented Arterial Blood Pressure 117/64 Pulmonary Artery Pressure 35/13 Cardiac Output 4.2 Cardiac Index 2.4 - Labs CBC & Chem 7: 03/08/23 05:20 03/08/23 05:20 Labs: Abnormal Lab Results - Last 24 Hours (Table) 03/07/23 03/07/23 03/08/23 Range/Units 16:07 20:50 05:20 WBC 14.0 H (3.8-10.6) k/uL RBC 3.10 L (3.80-5.40) m/uL Hgb 9.1 L (11.4-16.0) gm/dL Hct 27.9 L (34.0-46.0) % Chloride (98-107) mmol/L Glucose (74-99) mg/dL POC Glucose (mg/dL) 134 H 155 H (70-110) mg/dL 03/08/23 03/08/23 03/08/23 Range/Units 05:20 06:34 11:24 WBC (3.8-10.6) k/uL RBC (3.80-5.40) m/uL Hgb (11.4-16.0) gm/dL Hct (34.0-46.0) % Chloride 108 H (98-107) mmol/L Glucose 113 H (74-99) mg/dL POC Glucose (mg/dL) 131 H 158 H (70-110) mg/dL
[2023-03-08 16:24] LABS: Glucose,Whole Blood 154 mg/dL (70-110)
[2023-03-08 20:35] LABS: Glucose,Whole Blood 163 mg/dL (70-110)
[2023-03-08] MEDS: INSULIN DETEMIR (LEVEMIR) 100 UNIT/ML SYR SQ SCH (20:57)
[2023-03-08] MEDS: SENNOSIDES-DOCUSATE SODIUM 1 EACH TAB PO SCH (20:57)
[2023-03-08] MEDS: VESICARE 10 MG PO SCH (20:58)
[2023-03-08] MEDS: LATANOPROST 0.005% OPHTH DROPS 2.5 ML BTL BOTH EYES SCH (20:58)
[2023-03-09] MEDS ORDERED: HALOPERIDOL LACTATE 5 MG/ML 1 ML VIAL IVP PRN (00:13)
[2023-03-09 01:30] LABS: Glucose,Whole Blood 115 mg/dL (70-110)
[2023-03-09] MEDS ORDERED: HALOPERIDOL LACTATE 5 MG/ML 1 ML VIAL IVP ONE (03:50)
[2023-03-09] MEDS: HEPARIN SODIUM,PORCINE/PF 5,000 UNIT/0.5 ML SYRINGE SQ SCH ×4 (05:51→23:22)
[2023-03-09] MEDS: hydrALAZINE HCL 25 MG TAB PO SCH ×4 (05:51→23:22)
--- NOTE | 2023-03-09 06:17 | P.PN ---
Subjective Progress Note Date: 03/09/23 Principal diagnosis: ICU/ventilator management. Coronary artery disease and mitral valve regurgitation This is a 77-year-old female with history of severe persistent bronchial asthma, former smoker quit in 1973, however looking back at her PFT in the office it was basically unremarkable and nonobstructive in nature. Nonetheless the patient has been experiencing over the last 3 years intermittent episodes of cough wheezing and shortness of breath, and has been requiring multiple courses of steroids, and at one point she was maintained on prednisone for her asthma by Dr. Swift. Patient also has multiple ALLERGIES and she cannot tolerate a lot of the inhalers as listed on her ALLERGY list. Patient was last admitted to the hospital and we saw on consultation on 01/12/2023, patient ended up on prednisone 10 mg daily and again very she inhalers that she can use at home. He goes of presumptive ALLERGY to inhalers. Patient was recently evaluated by Dr. Montes for her abnormal LV dysfunction ejection fraction of 35-40%, and she underwent a cardiac catheterization which showed demonstrated left main coronary artery disease due to this finding, the patient was referred to cardiothoracic surgery for surgical intervention, patient is being worked up for surgery, and part of the workup included a pulmonary consultation for preoperative clearance. Presently the patient denies any shortness of breath at rest, no cough no wheezing she does have chronic dyspnea on exertion. Again I reviewed her last PFT in the office and it was relatively normal based on this alone, I would clear the patient for surgery as scheduled, the benefits of surgery outweigh the risks The patient is seen today 03/01/2023 in follow-up on the cardiac floor. She is currently sitting up in bed. Awake and alert in no acute distress. No worsening shortness of breath, cough or congestion. Her asthma is currently inactive and stable. She is maintaining good O2 saturations in the upper 90s on room air. Afebrile. Hemodynamically stable. She is continued on her bronchodilators. Resumed on her prednisone. MARY from yesterday revealed moderate to severe mitral regurgitation and global hypokinesis with impaired left ventricular systolic function and ejection fraction 35%. Plan per CT services is for coronary revascularization and mitral valve repair possibly tomorrow. I'm seeing this patient today 03/03/2023 in follow-up post elective coronary artery bypass grafts 2 with a BRITO to LAD and saphenous vein graft to the OM 1, mitral valve repair with a #26 Physio II annuloplasty ring, and left atrial appendage ligation. Patient remains intubated after the procedure, with vent settings of assist control, respiratory rate 16, tidal volume 360, FiO2 40%, and PEEP of 5. The patient's postoperative ABG showed a pO2 of 159, pCO2 of 33, and pH of 7.47. Postoperative chest x-ray showed the endotracheal tube approximately 2 cm from the alisson, NG tube coursing below the diaphragm, a pulmonary artery catheter appropriately place, and some postoperative cardiac prosthesis and sternotomy wires. No obvious pneumothorax., On my evaluation, the patient's most recent CO/CI is 2.6 and 1.5 respectively. Patient's blood pressure is hypotensive with a mean arterial pressure of 58. PA pressures are 41/17. Heart rhythm is normal sinus at about 60 bpm. Patient reportedly r eceived a total of 750 ML's of 5% albumin. Currently, norepinephrine is infusing at 7.7 mics per minute, milrinone infusing at 0.375 mics per kilogram per minute, amiodarone is infusing at 0.5 mg/m due to some perioperative atrial fibrillation, and lactated Ringer's is infusing at 50 ML's per hour. Patient has a mediastinal and bilateral right and left pleural chest tubes. The mediastinal chest tube has put out 73 mL of serosanguineous output, and both right and left pleural chest tube sites are wide together and put out approximately 330 ML's of serosanguineous output. Most recent CBC done around 2100 shows a WBC count of 10, hemoglobin 8, hematocrit 24, platelets 100,000. INR 1.3. Patient's BMP at that time showed a sodium 141, potassium 3.9, chloride 110, serum CO2 25, BUN 7, creatinine 0.44, glucose 129. Insulin infusion is currently paused. Urine output is marginal at 20 mL per hour. We did attempt weaning trial on this patient with a pressure support of 8 and a CPAP of 5. Patient was still quite lethargic from sedation and only pulling tidal volumes of 100-200. For this reason, and the fact that the patient's hemodynamic status is marginal at this time, we will hold off on extubating. We will reassess patient's readiness to wean once more alert and able to cooperate with weaning trial. Progress note dated 03/04/2023. The patient is seen today in room 267. Yesterday, the patient had multiple weaning trials, and did very poorly on all of them. The patient is status post two-vessel bypass grafting, and mitral valve repair, as well as left atrial appendage ligation. Currently, the patient is on volume assist control, rate 16, tidal volume 360, FiO2 40%, and PEEP of 5. Blood gases show pO2 106, pCO2 34, pH is 7.46. The patient's getting lactated Ringer's at 30 mL an hour, insulin, is currently on hold, nitroglycerin running at 5 mcg/m, dopamine at 2 mcg/kg/m, and Primacor 0.375 mcg/kg/m. The patient had another weaning trial today, with 10 of pressure support and 5 of CPAP. Weaning parameters including a tidal volume of only 261 mL, respiratory rate of 36, rapid shallow breathing index of 161, minute ventilation of 10 L/m, vital capacity of 310 mL, negative inspiratory force of -24, and she did have a positive cuff leak. Because of the elevated R SBI, the patient which surely fail a trial of extubation, and therefore is not extubated this morning. White count 9.8, hemoglobin 7.4, hematocrit 22, platelet count 95,000. Sodium 139, potassium 3.4, chlorides 109, CO2 25, BUN 10, creatinine 0.59. AST was 182. ALT was 122. Albumin was 3.0. Chest x-ray show typical postoperative changes. There is some bibasilar atelectasis. Progress note dated 03/05/2023. The patient is seen today in room 267. The patient is postop day #3, status post two-vessel bypass grafting, and mitral valve repair. The patient has had multiple weaning attempts, but each time, she does very poorly, early on in the trial. She has high blood pressures, high respiratory rates, high heart rate, and very low tidal volumes. Yesterday, she was placed on pressure support of 10, CPAP of 5, and apparently initially did okay with that, but at 10:00 or so, she was found to have significant respiratory distress, despite being on pressure support of 16. She was placed back on phimosis control. Currently, she is on a rate of 16, tidal volume 360, FiO2 40%, PEEP of 5. But gases show pO2 145, pCO2 30, pH is 7.53. This blood gases consistent with both respiratory and metabolic alkalosis. The patient is receiving vital high protein at 20 mL an hour, with a goal of 50. In addition, the patient's on a number of vasoactive drugs including dopamine at 2 mcg/kg/m, Primacor 0.25 mcg/kg/m, insulin 3 units an hour and nitroglycerin at 25 mcg/m. In addition, the patient's getting saline at 30 mL an hour. White count 10, hemoglobin 7.2, hematocrit 21.8, and platelet count 96,000. Sodium 138, potassium 3.6, chlorides O9, CO2 25, BUN 11, creatinine 0.54. Albumin is 2.8. Chest x-ray shows evidence of cardiomegaly, but no acute process. Progress note dated 03/06/2023. 77-year-old female seen today in room 267. I'm happy to report that she was finally extubated on 03/05/2023. Today's postop day #4. She's currently on 2 L. She's getting saline at keep vein open, Primacor at 0.125 mcg/kg/m, nitroglycerin at 20 mcg/m, and an insulin drip at 1.5 units an hour. She sitting in a chair next to the bed. She looks comfortable. White count 9.3, hemoglobin 7.7, hematocrit 23.2, and a platelet count of 106,000. Sodium is 139, potassium 3.5, chlorides 109, CO2 26, within normal BUN and creatinine. Calcium is 7.9. Chest x-ray shows postsurgical changes, and some mild basilar atelectasis. Progress note dated 03/07/2023. The patient is seen today in room 267. The patient is postop day #5. She was extubated on March 05. Currently, she is on room air. She's getting lactated Ringer's at 20 mL an hour. She is also getting Primacor at 0.125 mcg/kg/m. All in all, the patient's doing reasonably well. White count 10.4, hemoglobin 8.2, hematocrit 25.8, with a normal platelet count. Sodium 140, potassium 4.3, chlorides 108, CO2 28, within normal BUN and creatinine. The rest of the labs look reasonable. Liver enzymes are mildly elevated. Chest x-ray shows postsurgical changes, and mild pulmonary vascular congestion. Progress note dated 03/08/2023. The patient is seen today in room 267. Today is postop day #6. She was e xtubated on 03/05/2023. Currently, the patient is on room air. She's not receiving any IV fluids. Clinically, she's doing much better. White count is 14, hemoglobin 9.1, hematocrit 27.9, within normal platelet count. Sodium 142, potassium 4, chlorides 108, CO2 29, BUN 16, creatinine 0.67. Chest x-ray shows some cardiomegaly, and some bibasilar infiltrates or atelectasis. Progress note dated 03/09/2023. The patient is seen today in room 267. Today's postop day #7. The patient's currently on room air. She's not receiving any IV fluids. The patient did develop severe agitation and confusion throughout the night, and required a couple doses of Haldol, which have seemed to help. The patient's son is in the room with her. Labs are currently pending. Objective - Vital Signs Vital signs: Vital Signs Temp 98.2 F 03/08/23 16:00 Pulse 96 03/09/23 03:00 Resp 22 03/09/23 05:00 BP 145/77 03/09/23 05:00 Pulse Ox 96 03/09/23 05:00 FiO2 10 03/08/23 08:00 Intake & Output 03/08/23 03/08/23 03/09/23 06:59 18:59 06:59 Intake Total 275 700 300 Output Total 900 900 550 Balance -625 -200 -250 Intake: Oral 275 700 300 Output: Urine 900 900 550 Other: Voiding Method External Catheter External Catheter External Catheter # Voids 2 1 ABP, PAP, CO, CI - Last Documented Arterial Blood Pressure 117/64 Pulmonary Artery Pressure 35/13 Cardiac Output 4.2 Cardiac Index 2.4 - Exam No acute distress, extubated, on room air. HEENT examination is grossly unremarkable. Neck supple. Full range of motion. No adenopathy thyromegaly or neck vein distention. Cardiovascular examination reveals regular rhythm rate. S1-S2 normal. No S3 or S4. No discernible murmur noted. Heart sounds are distant. Heart rate 75 bpm. Lungs reveal scattered bilateral rhonchi. No wheezes or crackles. Breath sounds equal bilaterally. Saturations are excellent on room air. Saturations a re 97%. Abdomen soft bowel sounds are heard. No masses or tenderness. Extremities are intact. No cyanosis clubbing or edema. Skin is without rash or lesion. Neurologic examination is brief but nonfocal. - Labs CBC & Chem 7: 03/08/23 05:20 03/08/23 05:20 Labs: Abnormal Lab Results - Last 24 Hours (Table) 03/08/23 03/08/23 03/08/23 Range/Units 05:20 05:20 06:34 WBC 14.0 H (3.8-10.6) k/uL RBC 3.10 L (3.80-5.40) m/uL Hgb 9.1 L (11.4-16.0) gm/dL Hct 27.9 L (34.0-46.0) % Chloride 108 H (98-107) mmol/L Glucose 113 H (74-99) mg/dL POC Glucose (mg/dL) 131 H (70-110) mg/dL 03/08/23 03/08/23 03/08/23 Range/Units 11:24 16:23 20:34 WBC (3.8-10.6) k/uL RBC (3.80-5.40) m/uL Hgb (11.4-16.0) gm/dL Hct (34.0-46.0) % Chloride (98-107) mmol/L Glucose (74-99) mg/dL POC Glucose (mg/dL) 158 H 154 H 163 H (70-110) mg/dL 03/09/23 Range/Units 01:29 WBC (3.8-10.6) k/uL RBC (3.80-5.40) m/uL Hgb (11.4-16.0) gm/dL Hct (34.0-46.0) % Chloride (98-107) mmol/L Glucose (74-99) mg/dL POC Glucose (mg/dL) 115 H (70-110) mg/dL Assessment and Plan Assessment: Postop day #7, status post two-vessel bypass grafting, mitral valve repair, and left atrial appendage ligation. Routine postoperative ventilator management, with failure to wean from mechanical ventilation, status post extubation, 03/05/2023. History of CAD. Ischemic cardiomyopathy, with ejection fraction 35%. Moderate to severe mitral regurgitation. Severe persistent asthma. Previous tobacco dependence. Type 2 diabetes mellitus. Degenerative disc disease. Gastroesophageal reflux disease. Plan: Plan dated 03/04/2023. The patient was given another weaning trial this morning. She was placed on pressure support of 10, and CPAP of 5. Despite that, she had very poor weaning parameters, and we do very poorly of extubated. Her rapid shallow breathing index which is the best indicator of the patient's ability to breathe spont aneously, was 161. That number should be less than 105, and probably even less than 80. Nonetheless, the patient will continue on mechanical ventilation at this time. Continue to follow the patient. Labs, x-rays, medications are reviewed. The patient remains on a number drips including nitroglycerin, dopamine, and Primacor. Insulin is currently on hold. We will continue to follow make recommendations along the way. Plan dated 03/05/2023. The patient had to weaning trial yesterday, and failed miserably on both of them. This morning, we placed her back on pressure support, and she did very poorly. We'll try again later today. She just may need more time. She remains on many vasoactive drugs including dopamine, Primacor, and nitroglycerin. Labs, x-rays, and medications are reviewed. We will continue to follow the patient and make recommendations along the way. Prognosis is guarded. Today is postop day #3. Plan dated 03/06/2023. The patient was finally extubated yesterday March 05, postop day #3. Today is postop day #4. The patient is seen in room 267. The patient is currently on 2 L of oxygen. She remains on insulin drip, Primacor, and IV nitroglycerin. We encouraged the hourly use of the incentive spirometer. In addition we recommend deep breathing, coughing, clearing of secretions. Labs, x-rays, and medications are reviewed. Prognosis is guarded. Clinically doing much better today though. Plan dated 03/07/2023. The patient's doing very well. She has been weaned down to room air. The patient has no specific complaints today. She continues doing the incentive spirometer, every hour. We also recommend deep breathing, coughing, clearing of secretions. Labs, x-rays, and medications are reviewed. She was extubated on postop day #3. Today's postop day #5. We will continue to follow the patient and make recommendations along the way. Plan dated 03/08/2023. Currently, the patient is not receiving any supplemental oxygen, or any IV fluid s. We will continue to follow the patient make recommendations along the way. I believe cardiothoracic surgery is thinking about rehab for this patient. Labs, x-rays, and medications are reviewed. Prognosis is certainly guarded. We will continue to follow along. Plan dated 03/09/2023. The patient is currently on room air. She's not receiving any IV fluids. The patient apparently had some acute confusion and agitation last night in the emergency room. She received a couple doses of Haldol, and seems to be a bit better this morning. We will continue to follow the patient make recommen dations along the way. No labs today she had. Chest x-ray is pending. The patient may be discharged to rehab. We will await input by cardiothoracic surgery. Time with Patient: Less than 30
[2023-03-09 07:04] LABS: Glucose,Whole Blood 121 mg/dL (70-110)
[2023-03-09] MEDS: INSULIN ASPART (NovoLOG) 100 UNIT/ML VIAL SQ SCH ×4 (07:05→21:14)
[2023-03-09] MEDS: PANTOPRAZOLE 40 MG TABLET PO SCH (07:06)
--- NOTE | 2023-03-09 07:23 | XR ---
EXAMINATION TYPE: XR chest 2V DATE OF EXAM: 03/09/2023 COMPARISON: 03/08/2023 HISTORY: post cardiac surgery TECHNIQUE: Frontal and lateral views of the chest are obtained. FINDINGS: Scattered senescent parenchymal changes noted. Hyperinflation compatible with COPD. Scattered parenchymal densities persist although appear to be improving. Continued cardiomegaly with postoperative cardiac changes. Mediastinal structures are stable and grossly unremarkable. No evidence for hilar prominence. Degenerative changes dorsal spine. IMPRESSION: 1. Scattered parenchymal densities persist although appear to be improving. Continued cardiomegaly wi th postoperative cardiac changes.
--- NOTE | 2023-03-09 07:42 | P.PN ---
Subjective Progress Note Date: 03/09/23 PROGRESS NOTE The patient is a 77-year-old female with history of bronchial asthma who underwent cardiac catheterization by Dr. Negrete and was found to have severe coronary artery disease, her MARY showed significant mitral regurgitation with evidence of cardiomyopathy. She underwent CABG with BRITO to the LAD and SVG to the OM and repair of the mitral valve on March 03. She was confused last night but better this morning. She continues to be in sinus mechanism, hemodynamically stable on no vasopressors. She denies any nausea or vomiting. Her son is with her this morning because of the confusion of last night. She has no evidence of ventricular tachycardia. Medications: Aspirin, Plavix 75 mg daily, Lipitor 40 mg daily, Lasix 20 mg IV every 12 hours, hydralazine 25 mg every 8 hours, insulin, losartan 50 mg daily, metoprolol tartrate 50 mg twice a day. Prednisone 10 mg daily, Seroquel PHYSICAL EXAMINATION: Blood pressure 129/80 heart rate 90 LUNGS: Mild decreased breath sounds at the bases HEART: Regular rate and rhythm, S1, S2. No S3. systolic ejection murmur ABDOMEN: Soft, nontender, no organomegaly EXTREMETIES: No edema IMPRESSION: 1. Status post CABG and mitral valve repair, stable 2. Cardiomyopathy, no overt signs of heart failure 3. History of diabetes 4. Confusion, improved 5. Hyperlipidemia PLAN: 1. Add Aldactone 2. Increase physical activity 3. Follow renal functions 4. Depending on her progress further recommendations will be made Objective - Vital Signs Vital signs: Vital Signs Temp 98.2 F 03/08/23 16:00 Pulse 96 03/09/23 03:00 Resp 22 03/09/23 05:00 BP 145/77 03/09/23 05:00 Pulse Ox 96 03/09/23 05:00 FiO2 10 03/08/23 08:00 Intake & Output 03/08/23 03/09/23 03/09/23 18:59 06:59 18:59 Intake Total 700 600 Output Total 900 550 0 Balance -200 50 0 Intake: Oral 700 600 Output: Urine 900 550 0 Other: Voiding Method External Catheter External Catheter # Voids 2 1 ABP, PAP, CO, CI - Last Documented Arterial Blood Pressure 117/64 Pulmonary Artery Pressure 35/13 Cardiac Output 4.2 Cardiac Index 2.4 - Labs CBC & Chem 7: 03/08/23 05:20 03/08/23 05:20 Labs: Abnormal Lab Results - Last 24 Hours (Table) 03/08/23 03/08/23 03/08/23 Range/Units 11:24 16:23 20:34 POC Glucose (mg/dL) 158 H 154 H 163 H (70-110) mg/dL 03/09/23 03/09/23 Range/Units 01:29 06:52 POC Glucose (mg/dL) 115 H 121 H (70-110) mg/dL
[2023-03-09] MEDS: LOSARTAN 50 MG TAB PO SCH (08:04)
[2023-03-09] MEDS: ASPIRIN 325 MG TAB PO SCH (08:04)
[2023-03-09] MEDS: POTASSIUM BICARBONATE/CIT AC 20 MEQ TABLET.EFF OG-TUBE SCH (08:04)
[2023-03-09] MEDS: SPIRONOLACTONE 25 MG TAB PO SCH (08:04)
[2023-03-09] MEDS: FUROSEMIDE 10 MG/ML 2 ML VIAL IV SCH ×2 (08:05→21:12)
[2023-03-09] MEDS: ATORVASTATIN 40 MG TAB PO SCH (08:05)
[2023-03-09] MEDS: predniSONE 10 MG TAB PO SCH (08:05)
[2023-03-09] MEDS: ASCORBIC ACID 500 MG TAB PO SCH (08:05)
[2023-03-09] MEDS: METOPROLOL TARTRATE 50 MG TAB PO SCH ×2 (08:05→21:12)
[2023-03-09] MEDS: MULTIVITAMINS, THERA 1 EACH TAB PO SCH (08:05)
[2023-03-09] MEDS: CLOPIDOGREL 75 MG TAB PO SCH (08:05)
[2023-03-09 08:12] LABS: HCT 30.2 % (34.0-46.0); HGB 9.4 gm/dL (11.4-16.0); Hypochromasia Slight; MCH 28.6 pg (25.0-35.0); MCHC 31.2 g/dL (31.0-37.0); MCV 91.8 fL (80.0-100.0); Mean Platelet Volume 8.5; Platelet Count 175 k/uL (150-450); RBC 3.29 m/uL (3.80-5.40); RDW 14.7 % (11.5-15.5); WBC 15.5 k/uL (3.8-10.6)
--- NOTE | 2023-03-09 08:28 | P.PN ---
Subjective Progress Note Date: 03/09/23 Principal diagnosis: Coronary artery disease with left main disease. History of hyperlipidemia, cardiomyopathy with decreased systolic function, moderate to severe central mitral regurgitation, asthma with multiple exacerbations, diabetes mellitus, previous tobacco dependence, GERD, osteoarthritis, covid infection in September 2022 POD #7 coronary artery bypass graft 2 with left internal thoracic artery to left anterior descending artery, reverse saphenous vein graft from the aorta to the first obtuse marginal, mitral valve repair with a #26 physio-2 annuloplasty ring, endoscopic harvesting of the left greater saphenous vein, left atrial appendage ligation with a #35 mm AtriClip, graft flow measurements using the EnWavestim flowmeter system, intraoperative transesophageal echocardiogram and insertion of right common femoral arterial line by anesthesia Postoperative acute blood loss anemia and thrombocytopenia, expected given hemodilution and cardiopulmonary bypass pump Prolonged mechanical ventilation, expected given the patient's severe restrictive lung disease Hypotension requiring pressor use, resolved The patient was seen and examined this morning sitting up in a recliner in the intensive care unit in no acute distress. Remains in sinus rhythm, hemody namically stable. States pain is controlled on current medication regimen, does continue to complain of some shortness of breath. Patient is not taking deep breaths, only achieving 500 mL on her incentive spirometer. Remains on room air. Needs a lot of encouragement to ambulate and take deep breaths. Patient did have an episode of delirium last night, resolved this morning as she is alert and oriented 4. Son is at bedside. Per nursing patient hasn't slept at all the last 2 nights which may account for her delirium. No other new complaints. Objective - Vital Signs Vital signs: Vital Signs Temp 98.2 F 03/08/23 16:00 Pulse 104 H 03/09/23 07:00 Resp 29 H 03/09/23 07:00 BP 129/81 03/09/23 07:00 Pulse Ox 97 03/09/23 07:00 FiO2 10 03/08/23 08:00 Intake & Output 03/08/23 03/09/23 03/09/23 18:59 06:59 18:59 Intake Total 700 600 Output Total 900 550 0 Balance -200 50 0 Intake: Oral 700 600 Output: Urine 900 550 0 Other: Voiding Method External Catheter External Catheter # Voids 2 1 ABP, PAP, CO, CI - Last Documented Arterial Blood Pressure 117/64 Pulmonary Artery Pressure 35/13 Cardiac Output 4.2 Cardiac Index 2.4 - Exam CONSTITUTIONAL: Appears comfortable, somewhat cooperative, no acute distress RESPIRATORY: Lungs sounds very diminished bilaterally. Respirations even, nonlabored. Currently on room air with oxygen saturation 96%. Still only able to achieve 500 mL on incentive spirometry. Strong nonproductive cough. CARDIOVASCULAR: S1, S2 present. Regular rate and rhythm, sinus rhythm on telemetry. Sternum stable. Palpable peripheral pulses bilaterally. No edema present. No calf pain or tenderness noted. Heart hugger in place with patient demonstrating appropriate use. GASTROINTESTINAL: Abdomen soft, nontender, nondistended. Active bowel sounds present 4 quadrants. Tolerating diet. Positive bowel movement x2 03/07/23 GENITOURINARY: Continues to void, output 1450 mL the last 24 hours INTEGUMENTARY: Skin is warm and dry with evidence of good perfusion. Anterior chest incision well approximated and covered with Preveena dressing. Serous drainage present from chest tube sites. Left lower extremity EVH site well approximated without redness or drainage. NEUROLOGIC: Cranial nerves II through XII intact MUSKULOSKELETAL: Able to move all extremities, strength equal bilaterally PSYCHIATRIC: Alert and oriented to person place and time, appropriate affect, intact judgment and insight INVASIVE LINES AND TUBES: A/V epicardial pacemaker wires present, grounded - Allied health notes Allied health notes reviewed: nursing - Labs CBC & Chem 7: 03/09/23 07:57 03/08/23 05:20 Labs: Abnormal Lab Results - Last 24 Hours (Table) 03/08/23 03/08/23 03/08/23 Range/Units 11:24 16:23 20:34 WBC (3.8-10.6) k/uL RBC (3.80-5.40) m/uL Hgb (11.4-16.0) gm/dL Hct (34.0-46.0) % POC Glucose (mg/dL) 158 H 154 H 163 H (70-110) mg/dL 03/09/23 03/09/23 03/09/23 Range/Units 01:29 06:52 07:57 WBC 15.5 H (3.8-10.6) k/uL RBC 3.29 L (3.80-5.40) m/uL Hgb 9.4 L (11.4-16.0) gm/dL Hct 30.2 L (34.0-46.0) % POC Glucose (mg/dL) 115 H 121 H (70-110) mg/dL - Imaging and Cardiology Chest x-ray: report reviewed, image reviewed Assessment and Plan Assessment: Coronary artery disease with left main disease, status post 2 vessel CABG Hyperlipidemia, treated, cholesterol 148, LDL 51, triglycerides 201 Cardiomyopathy/chronic systolic heart failure with decreased systolic function, EF 35% on MARY 02/28/23 Moderate to severe central mitral regurgitation on MARY 02/28/23, status post mitral valve repair Asthma with multiple exacerbations, relieved with steroids Severe restrictive lung disease, FEV1 42% of predicted Diabetes mellitus, hemoglobin A1c 6.9% Previous tobacco dependence GERD Osteoarthritis Covid infection in September 2022 Postoperative acute blood loss anemia, expected Postoperative prolonged mechanical ventilation, expected Hypotension requiring pressor use, resolved Acute delirium, likely due to lack of sleep Plan: Continue to maximize medical therapy with aspirin, statin, Plavix, and beta analisa with hold parameters. Will increase beta analisa as tolerated Continue Cozaar, hydralazine for afterload reduction, Cozaar increased yesterday by cardiology. Aldactone added per cardiology Continue oral steroids per her home dose Encourage incentive spirometry 10 times every hour while awake. Bronchodilators per pulmonology. Will monitor daily labs and chest x-rays. Electrolyte replacement per protocol. Continue IV Lasix GI/DVT prophylaxis. Pain control with current medication regimen. Increase activity, ambulate as tolerated, PT/OT/cardiac rehab following Insulin management per internal medicine service. Patient is diabetic with hemoglobin A1c 6.9%. Continue patient's home vesicare for overactive bladder Strict accurate intake and output Daily weights Will discontinue epicardial pacemaker wires today, patient to remain on bedrest 1 hour post wire removal Reorient as needed. Seroquel ordered for sleep tonight Consult placed for Dr. Odell for IPR at discharge Will place transfer orders for 3 S. cardiac stepdown unit, may transfer when bed available More recommendations to follow based
[2023-03-09 08:33] LABS: African American GFR (CKD) >90 (>60 ml/min/1.73 sqM); Anion Gap 7 mmol/L; Blood Urea Nitrogen 17 mg/dL (7-17); Calcium 9.1 mg/dL (8.4-10.2); Carbon Dioxide 29 mmol/L (22-30); Chloride 104 mmol/L (98-107); Glucose 153 mg/dL (74-99); Non-African American GFR(CKD) 84 (>60 ml/min/1.73 sqM); Potassium 3.8 mmol/L (3.5-5.1); Sodium 140 mmol/L (137-145)
[2023-03-09] MEDS: POTASSIUM BICARBONATE/CIT AC 20 MEQ TABLET.EFF PO SCH ×2 (08:50→23:19)
[2023-03-09] MEDS: ALBUTEROL 90 MCG INHALATION SCH ×4 (08:59→21:50)
--- NOTE | 2023-03-09 10:30 | P.CONS ---
History of Present Illness - Chief Complaint Cardiac debility - History of Present Illness I had the opportunity see patient for inpatient rehab consultation. Patient admitted to [facility] February 27 with CHF and shortness of breath and known cardiac disease. Admitted to hospitalist group. Seen by Dr. Camacho and Rizwan who eventually under went CABG two-vessel and mitral valve repair. Seen by Dr. Woody for ICU care. Chest x-rays followed for scattered parenchymal densities, cardiomegaly and postoperative change. Head CT with no active change. Started therapy. PT reports minimal assistance for bed mobility transfer and two-person assistance for gait 40 feet, hand-held. OT reports independent with feeding, supervision for grooming, moderate assistance for upper dressing and maximal assistance for lower dressing, bathing, toileting Previous functional history: As elicited from patient: Patient 77-year-old right-handed -[place] female who is lives in one floor home with son. Son works full-time. Patient independent with own cooking, laundry, driving, standing shower. Uses standard cane for longer distances outside of the house. PCP Dr. Becerra. Review of Systems Review of systems: ENT: Denies sneezes or discharge. Eyes: Denies discharge or photophobia. Cardiac: Mild sternal discomfort. Pulmonary: Improving but mild shortness of breath. Breast: Denies discharge or lumps. Gastrointestinal: Denies nausea, emesis, constipation, diarrhea. Genitourinary: Denies discharge or frequency. Musculoskeletal: Denies muscle or bone aches. Neurologic: Mild generalized weakness. Endocrine: Denies shakes or sweats. Oncology: Denies cancers. Dermatologic: Denies rash, itching, pruritus. ALLERGY/immunology: Denies sneezes, rashes. Past Medical History Past Medical History: Asthma, Coronary Artery Disease (CAD), Diabetes Mellitus, GERD/Reflux, Hyperlipidemia, Osteoarthritis (OA) Additional Past Medical History / Comment(s): cardiomyopathy, elevated heart rate, overactive bladder, glaucoma, hx elevated sed rate,lelo knee pain-arthritis and elmore cyst, covid in 09/2022 History of Any Multi-Drug Resistant Organisms: None Reported Past Surgical History: Appendectomy, Section, Hysterectomy, Orthopedic Surgery Additional Past Surgical History / Comment(s): 3 left breast biopsies, 3 needle loc on right breast- pt states all benign. lelo rotator cuff repair, lelo. hammer toe and bunionectomy, trigger finger release lelo ring fingers, meniscus repair lelo knees, carpal tunnel lelo, rt thumb fusion, lt ankle surgery, D&C, bilateral cataract surgery and laser surgery, COLONOSCOPY , EGD WITH BIOPSY Past Anesthesia/Blood Transfusion Reactions: No Reported Reaction Smoking Status: Former smoker - Past Family History Mother History Unknown: Yes Family Medical History: Congestive Heart Failure (CHF), CVA/TIA, Hypertension Son(s) History Unknown: Yes Family Medical History: Deep Vein Thrombosis (DVT) Additional Family Medical History / Comment(s): DVT IN LEG Father Family Medical History: Congestive Heart Failure (CHF), Hypertension Medications and Allergies Home Medications Medication Instructions Recorded Confirmed Type Rosuvastatin Calcium [Crestor] 5 mg PO DAILY 07/16/14 02/27/23 History Solifenacin Succinate [Vesicare] 10 mg PO HS 07/16/14 02/27/23 History atenoloL [Tenormin] 25 mg PO BID 07/16/14 02/27/23 History Latanoprost Ophth [Xalatan 0.005%] 1 drop BOTH EYES HS 08/17/17 02/27/23 History Furosemide [Lasix] 20 mg PO MOWEFR 12/16/20 02/27/23 History Digoxin 0.25 mg PO HS 04/15/21 02/27/23 History Carboxymethylcellulose Sodium 1 drop BOTH EYES TID PRN 11/16/22 02/27/23 History [Refresh Tears] Esomeprazole Magnesium [NexIUM] 20 mg PO DAILY 11/16/22 02/27/23 History Multivit with Calcium,Iron,Min 1 tab PO DAILY 11/16/22 02/27/23 History [Women's Multivitamin] Nystatin 100,000 Unit/ml Susp 5 ml PO TID BETWEEN MEALS 11/16/22 02/25/23 History [Mycostatin Oral Susp] Ascorbic Acid [Vitamin C] 500 mg PO DAILY 12/03/22 02/27/23 History metFORMIN HCL [Glucophage] 500 mg PO 1700 01/11/23 02/27/23 History Albuterol Inhaler [Ventolin Hfa 2 puff INHALATION RT-QID PRN each 01/16/23 02/27/23 Rx Inhaler] Codeine Phosphate/Guaifenesin 10 ml PO Q4H PRN #100 ml 01/16/23 02/25/23 Rx [Codeine Phosphate/Guaifenesin 10-100 mg/5 ml] predniSONE 10 mg PO DIRECTED #30 tab 01/16/23 02/27/23 Rx Acetaminophen [Tylenol Extra 500 mg PO DAILY 02/25/23 02/25/23 History Strength] Enalapril [Vasotec] 5 mg PO HS 02/25/23 02/27/23 History Allergies Allergy/AdvReac Type Severity Reaction Status Date / Time budesonide Allergy Wheezing Verified 02/25/23 12:25 fluticasone Allergy Rapid Verified 03/02/23 06:32 Heart Rate, dizziness formoterol Allergy Wheezing, Verified 03/02/23 06:32 [From Box] Dizziness, Rapid Heart Rate, High BP glycopyrrolate Allergy Wheezing, Verified 03/02/23 06:32 [From Box] Dizziness, Rapid Heart Rate, High BP levalbuterol [From Xopenex] Allergy Wheezing, Verified 03/02/23 06:32 Dizziness azithromycin [From Zithromax] AdvReac intercts Verified 03/02/23 06:32 w/Digoxin benzonatate AdvReac Gerd Verified 03/02/23 06:32 dexamethasone AdvReac Gerd Verified 03/02/23 06:32 doxycycline AdvReac Gerd Verified 03/02/23 06:32 ipratropium AdvReac Rapid Verified 03/02/23 06:32 Heart Rate pravastatin sodium AdvReac Swelling Verified 03/02/23 06:32 [From Pravachol] and pain in legs prednisone AdvReac causes Verified 03/02/23 06:32 thrush ranitidine AdvReac Nausea & Verified 03/02/23 06:32 Vomiting & Diarrhea Sulfa (Sulfonamide AdvReac Rash/Hives Verified 03/02/23 06:32 Antibiotics) Physical Exam Vitals: Vital Signs Temp Pulse Resp BP Pulse Ox 03/09/23 09:00 93 L 03/09/23 08:00 98 F 100 31 H 129/81 97 03/09/23 07:00 104 H 29 H 129/81 97 03/09/23 06:00 96 25 H 135/68 96 03/09/23 05:00 22 145/77 96 03/09/23 04:00 75 H 120/65 91 L 03/09/23 03:00 96 29 H 127/63 94 L 03/09/23 02:00 99 101 H 134/104 96 03/09/23 01:00 98 15 135/75 99 03/09/23 00:00 104 H 19 135/75 97 03/08/23 23:00 90 15 135/75 94 L 03/08/23 22:00 92 12 118/82 96 03/08/23 21:00 94 27 H 146/77 91 L 03/08/23 20:00 93 30 H 140/71 95 03/08/23 19:17 95 39 H 140/71 94 L 03/08/23 19:00 91 20 95 03/08/23 18:00 96 20 133/100 94 L 03/08/23 17:00 96 20 144/86 94 L 03/08/23 16:00 98.2 F 92 18 138/70 94 L 03/08/23 15:00 96 20 134/95 93 L 03/08/23 14:00 98 11 L 146/69 94 L 03/08/23 13:00 94 20 146/70 91 L 03/08/23 12:00 92 20 166/85 97 03/08/23 11:42 92 L 03/08/23 11:00 96 20 141/73 92 L Intake and Output 03/08/23 03/09/23 03/09/23 22:59 06:59 14:59 Intake Total 550 300 240 Output Total 50 500 0 Balance 500 -200 240 Intake: Oral 550 300 240 Output: Urine 50 500 0 Other: Voiding Method External Catheter External Catheter # Voids 1 1 Skin: Atrophic, intact. General: Overweight build and comfortable appearance. Head: Normocephalic, atraumatic. Eyes: Symmetric. Pupils equal round. Ears: Symmetric. Hearing within normal limits. Mouth: Clear. Neck: Supple. Carotid without bruit. Cardiac: Sternal incision clean and dressed. Lungs: Clear anteriorly and posteriorly. Abdomen: Soft active nontender. Extremities: Normal tone. Neurological: Mental status: Alert, cooperative, pleasant. Cranial nerves: Symmetric facial tone and trapezius. Motor: Active elevation all 4 limbs. Legs are at best antigravity. Sensation: Intact throughout. DTRs: Symmetric and equal throughout. Mobility: Currently in Nelsy chair, did not attempt to stand on my own. Results CBC & Chem 7: 03/09/23 07:57 03/09/23 07:57 Labs: Abnormal Lab Results - Last 24 Hours (Table) 03/08/23 03/08/23 03/08/23 Range/Units 11:24 16:23 20:34 WBC (3.8-10.6) k/uL RBC (3.80-5.40) m/uL Hgb (11.4-16.0) gm/dL Hct (34.0-46.0) % Glucose (74-99) mg/dL POC Glucose (mg/dL) 158 H 154 H 163 H (70-110) mg/dL 03/09/23 03/09/23 03/09/23 Range/Units 01:29 06:52 07:57 WBC 15.5 H (3.8-10.6) k/uL RBC 3.29 L (3.80-5.40) m/uL Hgb 9.4 L (11.4-16.0) gm/dL Hct 30.2 L (34.0-46.0) % Glucose (74-99) mg/dL POC Glucose (mg/dL) 115 H 121 H (70-110) mg/dL 03/09/23 Range/Units 07:57 WBC (3.8-10.6) k/uL RBC (3.80-5.40) m/uL Hgb (11.4-16.0) gm/dL Hct (34.0-46.0) % Glucose 153 H (74-99) mg/dL POC Glucose (mg/dL) (70-110) mg/dL Assessment and Plan (1) Asthma Current Visit: No Status: Acute Code(s): J45.909 - UNSPECIFIED ASTHMA, UNCOMPLICATED SNOMED Code(s): 484780807 Plan: Comments and plan: Diagnoses should include cardiac debility with recent cardiac surgery and CHF. Patient is started therapies. Safety concerns noted demonstrate ability tolerate and benefit from therapies. Have discussed benefit of inpatient rehab with patient and she agrees. Consider transfer when medically and surgically appropriate pending insurance authorization.
[2023-03-09 11:13] LABS: Glucose,Whole Blood 253 mg/dL (70-110)
--- NOTE | 2023-03-09 13:25 | P.PN ---
Subjective Progress Note Date: 03/09/23 77-year-old patient with past medical history significant for coronary artery disease, history of diabetes mellitus, asthma, hyperlipidemia osteoarthritis history of cardiomyopathy presented to the emergency department and admitted for cardiomyopathy and ischemic workup. Patient was status post cardiac c atheterization and was noted to have multivessel coronary artery disease and was referred to cardiothoracic surgery for surgical intervention. * Patient been worked up for CABG and seen by multiple specialties including pulmonary medicine, internal medicine consulted as well for medical management * Patient underwent elective coronary artery bypass grafts 2 with a BRITO to LAD and saphenous vein graft to the OM 1, mitral valve repair with a #26 Physio II annuloplasty ring, and left atrial appendage ligation * 03/05. Patient currently intubated, patient opening eyes, following commands. Patient has had multiple weaning attempt that failed. ICU following * * * 03/06. Patient seen and examined. Sitting upright in the chair, patient extubated yesterday, states she feels better. Plan is for patient chest tubes to be removed today 03/07. Patient seen and examined. Chest tubes were removed yesterday. Currently sitting upright in the chair. Complaining of shortness of breath on exertion 03/08. Patient seen and examined. No acute issues overnight vital signs this morning are temperature afebrile, respiratory rate 20, heart rate 92, blood pressure 166/85. White count this morning is 14, hemoglobin 9.1 03/09 Patient seen and examined. Patient was confused and agitated overnight, re ceiving Haldol for agitation. WBC 15.5 today, hemoglobin 9.4, sodium 140, potassium 3.8, BUN 17 creatinine 0.71. Vital this morning are temperature 90.8 heart rate 100 respirations 31, blood pressure 129/81. Patient returned back to baseline, no longer confused. REVIEW OF SYSTEMS: Denies shortness of breath at rest, get short of breath on exertion Denies any lightheadedness or dizziness Denies any nausea, vomiting abdominal pain. Denies any lightheadedness or dizziness PHYSICAL EXAMINATION: GENERAL: Alert HEENT: Pupils are round and equally reacting to light. EOMI. No scleral icterus. No conjunctival pallor. Normocephalic, atraumatic. No pharyngeal erythema. No thyromegaly. CARDIOVASCULAR: S1 and S2 present. No murmurs, rubs, or gallops. PULMONARY: Chest is clear to auscultation, no wheezing or crackles. ABDOMEN: Soft, nontender, nondistended, normoactive bowel sounds. No palpable organomegaly. MUSCULOSKELETAL: No joint swelling or deformity. EXTREMITIES: No cyanosis, clubbing, or pedal edema. NEUROLOGICAL: Gross neurological examination did not reveal any focal deficits. SKIN: No rashes. Assessment and plan Coronary artery disease with left main disease status post CABG Ischemic cardiomyopathy and LV dysfunction with ejection fraction of 35-40% based on transthoracic echo from 09/2022 mitral regurgitation Acute respiratory failure requiring intubation and mechanical ventilation Postoperative anemia Severe persistent asthma Type 2 diabetes Degenerative disc disease GERD without esophagitis Plan Monitor vital signs Monitor CBC Monitor CMP Delirium precautions Continue telemetry monitoring Encourage use of I-S Aggressive bronchopulmonary hygiene Continue to maximize medical therapy with aspirin, statin, Plavix, Lopressor 50 mg twice a day. Losartan dose increased to 50 mg Continue postoperative care per CT surgery team Continue aspirin, Plavix, Lipitor. Continue IV Lasix 20 mg twice a day Cardiology added Aldactone,Follow-up on cardiology recommendations Plan is for patient discharged to inpatient rehab consult physical medicine Objective - Vital Signs Vital signs: Vital Signs Temp 98 F 03/09/23 08:00 Pulse 100 03/09/23 08:00 Resp 31 H 03/09/23 08:00 BP 129/81 03/09/23 08:00 Pulse Ox 93 L 03/09/23 09:00 FiO2 10 03/08/23 08:00 Intake & Output 03/08/23 03/09/23 03/09/23 18:59 06:59 18:59 Intake Total 700 600 240 Output Total 900 550 0 Balance -200 50 240 Intake: Oral 700 600 240 Output: Urine 900 550 0 Other: Voiding Method External Catheter External Catheter External Catheter # Voids 2 1 ABP, PAP, CO, CI - Last Documented Arterial Blood Pressure 117/64 Pulmonary Artery Pressure 35/13 Cardiac Output 4.2 Cardiac Index 2.4 - Labs CBC & Chem 7: 03/09/23 07:57 03/09/23 07:57 Labs: Abnormal Lab Results - Last 24 Hours (Table) 03/08/23 03/08/23 03/08/23 Range/Units 11:24 16: 20:34 WBC (3.8-10.6) k/uL RBC (3.80-5.40) m/uL Hgb (11.4-16.0) gm/dL Hct (34.0-46.0) % Glucose (74-99) mg/dL POC Glucose (mg/dL) 158 H 154 H 163 H (70-110) mg/dL 03/09/23 03/09/23 03/09/23 Range/Units 01:29 06:52 07:57 WBC 15.5 H (3.8-10.6) k/uL RBC 3.29 L (3.80-5.40) m/uL Hgb 9.4 L (11.4-16.0) gm/dL Hct 30.2 L (34.0-46.0) % Glucose (74-99) mg/dL POC Glucose (mg/dL) 115 H 121 H (70-110) mg/dL 03/09/23 Range/Units 07:57 WBC (3.8-10.6) k/uL RBC (3.80-5.40) m/uL Hgb (11.4-16.0) gm/dL Hct (34.0-46.0) % Glucose 153 H (74-99) mg/dL POC Glucose (mg/dL) (70-110) mg/dL
[2023-03-09 16:34] LABS: Glucose,Whole Blood 213 mg/dL (70-110)
[2023-03-09 20:15] LABS: Glucose,Whole Blood 203 mg/dL (70-110)
[2023-03-09] MEDS: QUEtiapine 25 MG TAB PO SCH (21:12)
[2023-03-09] MEDS: SENNOSIDES-DOCUSATE SODIUM 1 EACH TAB PO SCH (21:12)
[2023-03-09] MEDS: BENZOCAINE/MENTHOL LOZENG 1 EACH LOZENGE MUCOUS MEM PRN (21:12)
[2023-03-09] MEDS: VESICARE 10 MG PO SCH (21:15)
[2023-03-09] MEDS: INSULIN DETEMIR (LEVEMIR) 100 UNIT/ML SYR SQ SCH (21:15)
[2023-03-09] MEDS: LATANOPROST 0.005% OPHTH DROPS 2.5 ML BTL BOTH EYES SCH (21:15)
[2023-03-10 05:55] LABS: Glucose,Whole Blood 97 mg/dL (70-110)
[2023-03-10] MEDS: INSULIN ASPART (NovoLOG) 100 UNIT/ML VIAL SQ SCH ×4 (06:03→21:07)
[2023-03-10 06:04] LABS: Glucose,Whole Blood 103 mg/dL (70-110)
[2023-03-10] MEDS: PANTOPRAZOLE 40 MG TABLET PO SCH (06:04)
--- NOTE | 2023-03-10 06:38 | XR ---
EXAMINATION TYPE: XR chest 2V DATE OF EXAM: 03/10/2023 COMPARISON: Chest x-ray from one day earlier and older studies HISTORY: Post open cardiac surgery. TECHNIQUE: Frontal and lateral views of the chest are obtained. FINDINGS: Overlying sternal wires and mediastinal clips along with left atrial appendage and cardiac valve surgical changes are all redemonstrated. Persistent cardiomegaly with some increased interstitial markings bilaterally redemonstrated. No pneu mothorax seen bilaterally. Small to tiny right greater than left pleural effusions noted. Surgical ch anges right humeral head redemonstrated. IMPRESSION: Cardiomegaly with mild interstitial edema and small to tiny right greater than left pleur al effusions remain present. No significant change from one day earlier.
[2023-03-10] MEDS ORDERED: guaiFENesin-Coden 100-10MG/5ML 10 ML CUP PO PRN (07:33)
[2023-03-10 08:20] LABS: HCT 29.1 % (34.0-46.0); HGB 9.2 gm/dL (11.4-16.0); Hypochromasia Slight; MCH 28.6 pg (25.0-35.0); MCHC 31.6 g/dL (31.0-37.0); MCV 90.5 fL (80.0-100.0); Mean Platelet Volume 8.6; Platelet Count 178 k/uL (150-450); RBC 3.21 m/uL (3.80-5.40); RDW 14.8 % (11.5-15.5); WBC 16.4 k/uL (3.8-10.6)
[2023-03-10 08:48] LABS: Calcium 9.2 mg/dL (8.4-10.2); Potassium 3.7 mmol/L (3.5-5.1)
[2023-03-10] MEDS: ALBUTEROL 90 MCG INHALATION SCH ×4 (09:10→20:19)
[2023-03-10] MEDS: ASPIRIN 325 MG TAB PO SCH (09:16)
[2023-03-10] MEDS: CLOPIDOGREL 75 MG TAB PO SCH (09:16)
[2023-03-10] MEDS: ATORVASTATIN 40 MG TAB PO SCH (09:16)
[2023-03-10] MEDS: ASCORBIC ACID 500 MG TAB PO SCH (09:16)
[2023-03-10] MEDS: HEPARIN SODIUM,PORCINE/PF 5,000 UNIT/0.5 ML SYRINGE SQ SCH ×3 (09:16→23:49)
[2023-03-10] MEDS: FUROSEMIDE 10 MG/ML 2 ML VIAL IV SCH ×2 (09:16→20:18)
[2023-03-10] MEDS: hydrALAZINE HCL 25 MG TAB PO SCH ×3 (09:16→23:49)
[2023-03-10] MEDS: SPIRONOLACTONE 25 MG TAB PO SCH (09:17)
[2023-03-10] MEDS: LOSARTAN 50 MG TAB PO SCH (09:17)
[2023-03-10] MEDS: MULTIVITAMINS, THERA 1 EACH TAB PO SCH (09:17)
[2023-03-10] MEDS: METOPROLOL TARTRATE 50 MG TAB PO SCH ×3 (09:17→21:10)
[2023-03-10] MEDS: predniSONE 10 MG TAB PO SCH (09:17)
[2023-03-10] MEDS: BENZOCAINE/MENTHOL LOZENG 1 EACH LOZENGE MUCOUS MEM PRN (09:21)
--- NOTE | 2023-03-10 09:30 | P.PN ---
Subjective Progress Note Date: 03/10/23 Principal diagnosis: Coronary artery disease with left main disease. History of hyperlipidemia, cardiomyopathy with decreased systolic function, moderate to severe central mitral regurgitation, asthma with multiple exacerbations, diabetes mellitus, previous tobacco dependence, GERD, osteoarthritis, covid infection in September 2022 POD #8 coronary artery bypass graft 2 with left internal thoracic artery to left anterior descending artery, reverse saphenous vein graft from the aorta to the first obtuse marginal, mitral valve repair with a #26 physio-2 annuloplasty ring, endoscopic harvesting of the left greater saphenous vein, left atrial appendage ligation with a #35 mm AtriClip, graft flow measurements using the [employer]mestim flowmeter system, intraoperative transesophageal echocardiogram and insertion of right common femoral arterial line by anesthesia Postoperative acute blood loss anemia and thrombocytopenia, expected given hemodilution and cardiopulmonary bypass pump Prolonged mechanical ventilation, expected given the patient's severe restrictive lung disease Hypotension requiring pressor use, resolved The patient was seen and examined this morning sitting up in a recliner on the cardiac stepdown unit in no acute distress. Remains in sinus rhythm, hemo dynamically stable. States pain is controlled on current medication regimen, this morning complains of constant dry hacking cough. Patient is not taking deep breaths, only achieving 500 mL on her incentive spirometer. Remains on room air. Needs a lot of encouragement to ambulate and take deep breaths. Patient did get some sleep yesterday and last night and has had no further episodes of delirium. Patient was seen by Dr. Odell yesterday, plan is for discharge to [facility] soon. No other new complaints. Objective - Vital Signs Vital signs: Vital Signs Temp 97.8 F 03/10/23 03:44 Pulse 102 H 03/10/23 03:44 Resp 18 03/10/23 03:44 BP 122/64 03/10/23 03:44 Pulse Ox 96 03/10/23 09:10 FiO2 10 03/08/23 08:00 Intake & Output 03/09/23 03/10/23 03/10/23 18:59 06:59 18:59 Intake Total 480 480 Output Total 600 400 Balance -120 -400 480 Weight 82.7 kg 79.7 kg Intake: Oral 480 480 Output: Urine 600 400 Other: Voiding Method External Catheter Toilet # Voids 1 ABP, PAP, CO, CI - Last Documented Arterial Blood Pressure 117/64 Pulmonary Artery Pressure 35/13 Cardiac Output 4.2 Cardiac Index 2.4 - Exam CONSTITUTIONAL: Appears comfortable, cooperative, no acute distress RESPIRATORY: Lungs sounds very diminished bilaterally. Respirations even, nonlabored. Currently on room air with oxygen saturation 96%. Still only able to achieve 500 mL on incentive spirometry. Strong nonproductive cough. CARDIOVASCULAR: S1, S2 present. Regular rate and rhythm, sinus rhythm on telemetry. Sternum stable. Palpable peripheral pulses bilaterally. No edema present. No calf pain or tenderness noted. Heart hugger in place with patient demonstrating appropriate use. GASTROINTESTINAL: Abdomen soft, nontender, nondistended. Active bowel sounds present 4 quadrants. Tolerating diet. Positive bowel movement x2 03/07/23 GENITOURINARY: Continues to void, output 1000 mL the last 24 hours INTEGUMENTARY: Skin is warm and dry with evidence of good perfusion. Anterior chest incision well approximated. Left lower extremity EVH site well approximated without redness or drainage. NEUROLOGIC: Cranial nerves II through XII intact MUSKULOSKELETAL: Able to move all extremities, strength equal bilaterally PSYCHIATRIC: Alert and oriented to person place and time, appropriate affect, intact judgment and insight - Allied health notes Allied health notes reviewed: nursing - Labs CBC & Chem 7: 03/10/23 07:26 03/10/23 07:26 Labs: Abnormal Lab Results - Last 24 Hours (Table) 03/09/23 03/09/23 03/09/23 Range/Units 11:12 16:31 20:09 WBC (3.8-10.6) k/uL RBC (3.80-5.40) m/uL Hgb (11.4-16.0) gm/dL Hct (34.0-46.0) % Carbon Dioxide (22-30) mmol/L POC Glucose (mg/dL) 253 H 213 H 203 H (70-110) mg/dL 03/10/23 03/10/23 Range/Units 07:26 07:26 WBC 16.4 H (3.8-10.6) k/uL RBC 3.21 L (3.80-5.40) m/uL Hgb 9.2 L (11.4-16.0) gm/dL Hct 29.1 L (34.0-46.0) % Carbon Dioxide 33 H (22-30) mmol/L POC Glucose (mg/dL) (70-110) mg/dL - Imaging and Cardiology Chest x-ray: report reviewed, image reviewed Assessment and Plan Assessment: Coronary artery disease with left main disease, status post 2 vessel CABG Hyperlipidemia, treated, cholesterol 148, LDL 51, triglycerides 201 Cardiomyopathy/chronic systolic heart failure with decreased systolic function, EF 35% on MARY 02/28/23 Moderate to severe central mitral regurgitation on MARY 02/28/23, status post mitral valve repair Asthma with multiple exacerbations, relieved with steroids Severe restrictive lung disease, FEV1 42% of predicted Diabetes mellitus, hemoglobin A1c 6.9% Previous tobacco dependence GERD Osteoarthritis Covid infection in September 2022 Postoperative acute blood loss anemia, expected Postoperative prolonged mechanical ventilation, expected Hypotension requiring pressor use, resolved Acute delirium, likely due to lack of sleep Cardiac and medical debility Plan: Continue to maximize medical therapy with aspirin, statin, Plavix, and beta analisa with hold parameters. Will increase beta analisa as tolerated Continue Cozaar, hydralazine for afterload reduction, Aldactone added per cardiology Continue oral steroids per her home dose Encourage incentive spirometry 10 times every hour while awake. Bronchodilators per pulmonology. Will monitor daily labs and chest x-rays. Electrolyte replacement per protocol. Continue IV Lasix GI/DVT prophylaxis. Pain control with current medication regimen. Increase activity, ambulate as tolerated, PT/OT/cardiac rehab following Insulin management per internal medicine service. Patient is diabetic with hemoglobin A1c 6.9%. Continue patient's home vesicare for overactive bladder Strict accurate intake and output Daily weights Anticipate discharge to inpatient rehab in the next 24-48 hrs. More recommendations to follow based
--- NOTE | 2023-03-10 10:40 | P.PN ---
Subjective Progress Note Date: 03/10/23 On today's evaluation of 2022, the patient is on room air oxygen. She is using the incentive spirometer. Limited cough. No significant sputum production. The patient is being considered for rehabilitation. The cardiac rhythm is sinus. No chest pain. No other issues for now.The white cell count i s at 16.4 with a hemoglobin of 9.2 and a platelet count of 178. BUN is at 30 with a creatinine of 0.8. Objective - Vital Signs Vital signs: Vital Signs Temp 97.8 F 03/10/23 03:44 Pulse 114 H 03/10/23 08:00 Resp 16 03/10/23 08:00 BP 117/85 03/10/23 08:00 Pulse Ox 96 03/10/23 09:10 FiO2 10 03/08/23 08:00 Intake & Output 03/09/23 03/10/23 03/10/23 18:59 06:59 18:59 Intake Total 480 480 Output Total 600 400 Balance -120 -400 480 Weight 82.7 kg 79.7 kg Intake: Oral 480 480 Output: Urine 600 400 Other: Voiding Method External Catheter Toilet # Voids 1 ABP, PAP, CO, CI - Last Documented Arterial Blood Pressure 117/64 Pulmonary Artery Pressure 35/13 Cardiac Output 4.2 Cardiac Index 2.4 - Exam - Exam CONSTITUTIONAL: Appears comfortable, cooperative, no acute distress RESPIRATORY: Lungs sounds very diminished bilaterally. Respirations even, nonlabored. Currently on room air with oxygen saturation 96%. Still only able to achieve 500 mL on incentive spirometry. Strong nonproductive cough. CARDIOVASCULAR: S1, S2 present. Regular rate and rhythm, sinus rhythm on telemetry. Sternum stable. Palpable peripheral pulses bilaterally. No edema present. No calf pain or tenderness noted. Heart hugger in place with patient demonstrating appropriate use. GASTROINTESTINAL: Abdomen soft, nontender, nondistended. Active bowel sounds present 4 quadrants. Tolerating diet. Positive bowel movement x2 03/07/23 GENITOURINARY: Continues to void, output 1000 mL the last 24 hours INTEGUMENTARY: Skin is warm and dry with evidence of good perfusion. Anterior chest incision well approximated. Left lower extremity EVH site well approximated without redness or drainage. NEUROLOGIC: Cranial nerves II through XII intact MUSKULOSKELETAL: Able to move all extremities, strength equal bilaterally PSYCHIATRIC: Alert and oriented to person place and time, appropriate affect, intact judgment and insight - Labs CBC & Chem 7: 03/10/23 07:26 03/10/23 07:26 Labs: Abnormal Lab Results - Last 24 Hours (Table) 03/09/23 03/09/23 03/09/23 Range/Units 11:12 16:31 20:09 WBC (3.8-10.6) k/uL RBC (3.80-5.40) m/uL Hgb (11.4-16.0) gm/dL Hct (34.0-46.0) % Carbon Dioxide (22-30) mmol/L POC Glucose (mg/dL) 253 H 213 H 203 H (70-110) mg/dL 03/10/23 03/10/23 Range/Units 07:26 07:26 WBC 16.4 H (3.8-10.6) k/uL RBC 3.21 L (3.80-5.40) m/uL Hgb 9.2 L (11.4-16.0) gm/dL Hct 29.1 L (34.0-46.0) % Carbon Dioxide 33 H (22-30) mmol/L POC Glucose (mg/dL) (70-110) mg/dL Assessment and Plan Plan: Postop day #8, status post two-vessel bypass grafting, mitral valve repair, and left atrial appendage ligation. Routine postoperative ventilator management, with failure to wean from mechanical ventilation, status post extubation, 03/05/2023. History of CAD. Ischemic cardiomyopathy, with ejection fraction 35%. Moderate to severe mitral regurgitation. Severe persistent asthma. The patient is steroid dependent and the patient takes prednisone on outpatient basis Previous tobacco dependence. Type 2 diabetes mellitus. Degenerative disc disease. Gastroesophageal reflux disease. Plan The patient's is doing well for now. The patient had 2 vessel bypass surgery. Is using the incentive spirometer. She is on aspirin and Plavix. Continue oral steroids per home dose. bronchodilators Surgical one-sided striking and intact Continue beta blockers and the patient is also on Cozaar hydralazine for afterload reduction. Aldactone was also added by cardiology Patient is being worked up for rehabilitation We'll continue to follow
--- NOTE | 2023-03-10 11:04 | P.PN ---
Subjective Progress Note Date: 03/10/23 HISTORY OF PRESENT ILLNESS: Patient is pleasant 77-year-old female with history of CAD, left main disease, hyperlipidemia, cardiomyopathy, moderate to severe mitral regurgitation, asthma, diabetes mellitus type 2, tobacco abuse, GERD, prior COVID-19 infection. She underwent CABG 2 as well as mitral valve repair and additionally had postoperative anemia and thrombocytopenia with somewhat prolonged intubation. 03/07 Patient denies any chest pain or pressure. She admits to continued shortness breath however appears stable. She denies any lightheadedness or dizziness. Remains in sinus rhythm. 03/08 Patient seen and examined. Patient still has some dyspnea however states overall she is feeling somewhat better. She denies any chest pain or pressure. Blood pressures have been somewhat elevated in the 140s to 160s systolic and metoprolol had been increased this morning. We will increase losartan from 25- 50. Has had good urine output with the Lasix. Creatinine stable. 03/09/2023 The patient is a 77-year-old female with history of bronchial asthma who underwent cardiac catheterization by Dr. Negrete and was found to have severe coronary artery disease, her MARY showed significant mitral regurgitation with evidence of cardiomyopathy. She underwent CABG with BRITO to the LAD and SVG to the OM and repair of the mitral valve on March 03. She was confused last night but better this morning. She continues to be in sinus mechanism, hemodynamically stable on no vasopressors. She denies any nausea or vomiting. Her son is with her this morning because of the confusion of last night. She has no evidence of ventricular tachycardia. 03/10/2023 Patient examined this morning. She is sitting up in the chair. Patient denies chest pain or pressure. She reports chest soreness at the site of her incision. She reports that she was coughing a lot overnight and did not sleep very well. Telemetry reveals sinus mechanism. Vital signs are stable. Mildly tachycardic this morning. PHYSICAL EXAM: VITAL SIGNS: Reviewed. GENERAL: Well-developed in no acute distress. NECK: Supple. No JVD or thyromegaly LUNGS: Respirations even and unlabored. Lungs essentially clear to auscultation bilaterally, diminished at the bases. HEART: Regular rate and rhythm. S1 and S2 heard. Systolic murmur noted. EXTREMITIES: Normal range of motion. No clubbing or cyanosis. Peripheral pulses intact. No lower extremity edema ASSESSMENT: Coronary status post CABG 2 Moderate severe central mitral regurgitation, status post mitral valve repair Hyperlipidemia Chronic congestive heart failure, currently euvolemic, EF 35% Ischemic cardiomyopathy COPD/restrictive lung disease Diabetes mellitus type 2 Tobacco abuse Anemia PLAN: Continue postoperative management per cardiothoracic surgery Continue current cardiac medications Continue telemetry monitoring. Patient mildly tachycardic this morning. May need to increase beta analisa dosage. We'll continue to monitor at this time. Increase activity as tolerated Encouraged use of incentive spirometer Discharge planning in place to inpatient rehab Further recommendations pending patient's course Nurse practitioner note has been reviewed by physician. Signing provider agrees with the documented findings, assessment, and plan of care. Objective - Vital Signs Vital signs: Vital Signs Temp 97.8 F 03/10/23 03:44 Pulse 114 H 03/10/23 08:00 Resp 16 03/10/23 08:00 BP 117/85 03/10/23 08:00 Pulse Ox 96 03/10/23 09:10 FiO2 10 03/08/23 08:00 Intake & Output 03/09/23 03/10/23 03/10/23 18:59 06:59 18:59 Intake Total 480 480 Output Total 600 400 Balance -120 -400 480 Weight 82.7 kg 79.7 kg Intake: Oral 480 480 Output: Urine 600 400 Other: Voiding Method External Catheter Toilet Toilet # Voids 1 ABP, PAP, CO, CI - Last Documented Arterial Blood Pressure 117/64 Pulmonary Artery Pressure 35/13 Cardiac Output 4.2 Cardiac Index 2.4 - Labs CBC & Chem 7: 03/10/23 07:26 03/10/23 07:26 Labs: Abnormal Lab Results - Last 24 Hours (Table) 03/09/23 03/09/23 03/09/23 Range/Units 11:12 16:31 20:09 WBC (3.8-10.6) k/uL RBC (3.80-5.40) m/uL Hgb (11.4-16.0) gm/dL Hct (34.0-46.0) % Carbon Dioxide (22-30) mmol/L POC Glucose (mg/dL) 253 H 213 H 203 H (70-110) mg/dL 03/10/23 03/10/23 Range/Units 07:26 07:26 WBC 16.4 H (3.8-10.6) k/uL RBC 3.21 L (3.80-5.40) m/uL Hgb 9.2 L (11.4-16.0) gm/dL Hct 29.1 L (34.0-46.0) % Carbon Dioxide 33 H (22-30) mmol/L POC Glucose (mg/dL) (70-110) mg/dL
[2023-03-10 11:30] LABS: Glucose,Whole Blood 156 mg/dL (70-110)
--- NOTE | 2023-03-10 13:34 | P.PN ---
Subjective Progress Note Date: 03/10/23 77-year-old patient with past medical history significant for coronary artery disease, history of diabetes mellitus, asthma, hyperlipidemia osteoarthritis history of cardiomyopathy presented to the emergency department and admitted for cardiomyopathy and ischemic workup. Patient was status post cardiac c atheterization and was noted to have multivessel coronary artery disease and was referred to cardiothoracic surgery for surgical intervention. * Patient been worked up for CABG and seen by multiple specialties including pulmonary medicine, internal medicine consulted as well for medical management * Patient underwent elective coronary artery bypass grafts 2 with a BRITO to LAD and saphenous vein graft to the OM 1, mitral valve repair with a #26 Physio II annuloplasty ring, and left atrial appendage ligation * 03/05. Patient currently intubated, patient opening eyes, following commands. Patient has had multiple weaning attempt that failed. ICU following * * * 03/06. Patient seen and examined. Sitting upright in the chair, patient extubated yesterday, states she feels better. Plan is for patient chest tubes to be removed today 03/07. Patient seen and examined. Chest tubes were removed yesterday. Currently sitting upright in the chair. Complaining of shortness of breath on exertion 03/08. Patient seen and examined. No acute issues overnight vital signs this morning are temperature afebrile, respiratory rate 20, heart rate 92, blood pressure 166/85. White count this morning is 14, hemoglobin 9.1 03/09 Patient seen and examined. Patient was confused and agitated overnight, re ceiving Haldol for agitation. WBC 15.5 today, hemoglobin 9.4, sodium 140, potassium 3.8, BUN 17 creatinine 0.71. Vital this morning are temperature 90.8 heart rate 100 respirations 31, blood pressure 129/81. Patient returned back to baseline, no longer confused. 03/10. Patient seen and examined. Vital this morning is 16.4, hemoglobin 9.2, sodium 143, potassium 3.7, BUN 13, creatinine 0.82. Patient continues to be afebrile REVIEW OF SYSTEMS: Denies shortness of breath at rest, Denies any lightheadedness or dizziness Denies any nausea, vomiting abdominal pain. Denies any lightheadedness or dizziness PHYSICAL EXAMINATION: GENERAL: Alert HEENT: Pupils are round and equally reacting to light. EOMI. No scleral icterus. No conjunctival pallor. Normocephalic, atraumatic. No pharyngeal erythema. No thyromegaly. CARDIOVASCULAR: S1 and S2 present. No murmurs, rubs, or gallops. PULMONARY: Chest is clear to auscultation, no wheezing or crackles. ABDOMEN: Soft, nontender, nondistended, normoactive bowel sounds. No palpable organomegaly. MUSCULOSKELETAL: No joint swelling or deformity. EXTREMITIES: No cyanosis, clubbing, or pedal edema. NEUROLOGICAL: Gross neurological examination did not reveal any focal deficits. SKIN: No rashes. Assessment and plan Coronary artery disease with left main disease status post CABG Ischemic cardiomyopathy and LV dysfunction with ejection fraction of 35-40% based on transthoracic echo from 09/2022 mitral regurgitation Acute respiratory failure requiring intubation and mechanical ventilation Postoperative anemia Severe persistent asthma Type 2 diabetes Degenerative disc disease GERD without esophagitis Plan Monitor vital signs Monitor CBC Monitor CMP Delirium precautions Continue telemetry monitoring Encourage use of I-S Aggressive bronchopulmonary hygiene Continue to maximize medical therapy with aspirin, statin, Plavix, Lopressor 50 mg twice a day. Losartan 50 mg daily Continue postoperative care per CT surgery team continue IV Lasix 20 mg twice a day Continue Aldactone Follow-up on cardiology recommendations Plan is for patient discharged to inpatient rehab consult physical medicine Objective - Vital Signs Vital signs: Vital Signs Temp 97.8 F 03/10/23 03:44 Pulse 102 H 03/10/23 03:44 Resp 18 03/10/23 03:44 BP 122/64 03/10/23 03:44 Pulse Ox 96 03/10/23 09:10 FiO2 10 03/08/23 08:00 Intake & Output 03/09/23 03/10/23 03/10/23 18:59 06:59 18:59 Intake Total 480 480 Output Total 600 400 Balance -120 -400 480 Weight 82.7 kg 79.7 kg Intake: Oral 480 480 Output: Urine 600 400 Other: Voiding Method External Catheter Toilet # Voids 1 ABP, PAP, CO, CI - Last Documented Arterial Blood Pressure 117/64 Pulmonary Artery Pressure 35/13 Cardiac Output 4.2 Cardiac Index 2.4 - Labs CBC & Chem 7: 03/10/23 07:26 03/10/23 07:26 Labs: Abnormal Lab Results - Last 24 Hours (Table) 03/09/23 03/09/23 03/09/23 Range/Units 11:12 16:31 20:09 WBC (3.8-10.6) k/uL RBC (3.80-5.40) m/uL Hgb (11.4-16.0) gm/dL Hct (34.0-46.0) % Carbon Dioxide (22-30) mmol/L POC Glucose (mg/dL) 253 H 213 H 203 H (70-110) mg/dL 03/10/23 03/10/23 Range/Units 07:26 07:26 WBC 16.4 H (3.8-10.6) k/uL RBC 3.21 L (3.80-5.40) m/uL Hgb 9.2 L (11.4-16.0) gm/dL Hct 29.1 L (34.0-46.0) % Carbon Dioxide 33 H (22-30) mmol/L POC Glucose (mg/dL) (70-110) mg/dL
[2023-03-10 16:23] LABS: Glucose,Whole Blood 214 mg/dL (70-110)
[2023-03-10] MEDS: POTASSIUM BICARBONATE/CIT AC 20 MEQ TABLET.EFF PO SCH ×2 (17:33→21:06)
[2023-03-10 18:47] LABS: Appearance,Urine Clear (Clear); Bilirubin,Urine Negative (Negative); Blood,Urine Negative (Negative); Color,Urine Light Yellow; Glucose,Urine (UA) Negative (Negative); Ketones,Urine Negative (Negative); Leukocyte Esterase,Urine Negative (Negative); Nitrite,Urine Negative (Negative); PH, Urine 7.5 (5.0-8.0); Protein,Urine Negative (Negative); Specific Gravity,Urine 1.006 (1.001-1.035); Urobilinogen,Urine <2.0 mg/dL (<2.0)
[2023-03-10 20:09] LABS: Glucose,Whole Blood 163 mg/dL (70-110)
[2023-03-10] MEDS: SENNOSIDES-DOCUSATE SODIUM 1 EACH TAB PO SCH (20:18)
[2023-03-10] MEDS: QUEtiapine 25 MG TAB PO SCH (20:18)
[2023-03-10] MEDS: LATANOPROST 0.005% OPHTH DROPS 2.5 ML BTL BOTH EYES SCH (20:18)
[2023-03-10] MEDS: VESICARE 10 MG PO SCH (20:19)
[2023-03-11 04:38] VITALS: TEMP 97.8
[2023-03-11 06:06] LABS: Glucose,Whole Blood 131 mg/dL (70-110)
[2023-03-11] MEDS: INSULIN ASPART (NovoLOG) 100 UNIT/ML VIAL SQ SCH ×2 (06:13→12:29)
[2023-03-11] MEDS: PANTOPRAZOLE 40 MG TABLET PO SCH (06:30)
[2023-03-11] MEDS ORDERED: metFORMIN 500 MG TAB PO SCH (08:30)
[2023-03-11] MEDS ORDERED: METOPROLOL TARTRATE 50 MG TAB PO SCH (09:00)
--- NOTE | 2023-03-11 09:09 | XR ---
EXAMINATION TYPE: XR chest 2V DATE OF EXAM: 03/11/2023 COMPARISON: 03/10/2023 INDICATION: Postcardiac surgery TECHNIQUE: Frontal and lateral views of the chest are obtained. FINDINGS: The heart size is prominent. The pulmonary vasculature is prominent. Diffuse increased lung markings are present. Correlate for atelectasis. Sternotomy wires are present from prior cardiac valve and CABG. IMPRESSION: 1. Scattered infiltrates. Correlate for atelectasis. Follow-up can be performed.
[2023-03-11] MEDS: HEPARIN SODIUM,PORCINE/PF 5,000 UNIT/0.5 ML SYRINGE SQ SCH (09:10)
[2023-03-11] MEDS: POTASSIUM BICARBONATE/CIT AC 20 MEQ TABLET.EFF PO SCH (09:10)
[2023-03-11] MEDS: FUROSEMIDE 10 MG/ML 2 ML VIAL IV SCH (09:10)
[2023-03-11] MEDS: ATORVASTATIN 40 MG TAB PO SCH (09:10)
[2023-03-11] MEDS: ASCORBIC ACID 500 MG TAB PO SCH (09:11)
[2023-03-11] MEDS: LOSARTAN 50 MG TAB PO SCH (09:11)
[2023-03-11] MEDS: ASPIRIN 325 MG TAB PO SCH (09:11)
[2023-03-11] MEDS: SPIRONOLACTONE 25 MG TAB PO SCH (09:11)
[2023-03-11] MEDS: MULTIVITAMINS, THERA 1 EACH TAB PO SCH (09:11)
[2023-03-11] MEDS: CLOPIDOGREL 75 MG TAB PO SCH (09:11)
[2023-03-11] MEDS: predniSONE 10 MG TAB PO SCH (09:11)
[2023-03-11 09:15] VITALS: RESP 16
--- NOTE | 2023-03-11 09:34 | P.PN ---
Subjective Progress Note Date: 03/11/23 Principal diagnosis: Coronary artery disease with left main disease. History of hyperlipidemia, cardiomyopathy with decreased systolic function, moderate to severe central mitral regurgitation, asthma with multiple exacerbations, diabetes mellitus, previous tobacco dependence, GERD, osteoarthritis, covid infection in September 2022 POD #9 coronary artery bypass graft 2 with left internal thoracic artery to left anterior descending artery, reverse saphenous vein graft from the aorta to the first obtuse marginal, mitral valve repair with a #26 physio-2 annuloplasty ring, endoscopic harvesting of the left greater saphenous vein, left atrial appendage ligation with a #35 mm AtriClip, graft flow measurements using the [employer] flowmeter system, intraoperative transesophageal echocardiogram and insertion of right common femoral arterial line by anesthesia Postoperative acute blood loss anemia and thrombocytopenia, expected given hemodilution and cardiopulmonary bypass pump Prolonged mechanical ventilation, expected given the patient's severe restrictive lung disease Hypotension requiring pressor use, resolved The patient was seen and examined this morning sitting up in a recliner on the cardiac stepdown unit in no acute distress. Remains in sinus rhythm, hemo dynamically stable. States pain is controlled on current medication regimen. Patient is not taking deep breaths, only achieving 500 mL on her incentive spirometer. Remains on room air. Plan was for transfer to [facility] today, however patient adamantly stated this morning that she wants to go home with [facility]. Labs, chest x-ray reviewed. No other new complaints. Objective - Vital Signs Vital signs: Vital Signs Temp 97.8 F 03/11/23 04:00 Pulse 114 H 03/11/23 08:00 Resp 16 03/11/23 08:00 BP 134/65 03/11/23 08:00 Pulse Ox 99 03/11/23 08:00 FiO2 10 03/08/23 08:00 Intake & Output 03/10/23 03/11/23 03/11/23 18:59 06:59 18:59 Intake Total 960 Output Total 400 1000 Balance 560 -1000 Weight 80.1 kg Intake: Oral 960 Output: Urine 400 1000 Other: Voiding Method Toilet Toilet ABP, PAP, CO, CI - Last Documented Arterial Blood Pressure 117/64 Pulmonary Artery Pressure 35/13 Cardiac Output 4.2 Cardiac Index 2.4 - Exam CONSTITUTIONAL: Appears comfortable, cooperative, no acute distress RESPIRATORY: Lungs sounds very diminished bilaterally. Respirations even, nonlabored. Currently on room air with oxygen saturation 99%. Still only able to achieve 500 mL on incentive spirometry. Strong nonproductive cough. CARDIOVASCULAR: S1, S2 present. Regular rate and rhythm, sinus rhythm to sinus tach on telemetry. Sternum stable. Palpable peripheral pulses bilaterally. No edema present. No calf pain or tenderness noted. Heart hugger in place with patient demonstrating appropriate use. GASTROINTESTINAL: Abdomen soft, nontender, nondistended. Active bowel sounds present 4 quadrants. Tolerating diet. Positive bowel movement x2 03/07/23 GENITOURINARY: Continues to void, output 1400 mL the last 24 hours INTEGUMENTARY: Skin is warm and dry with evidence of good perfusion. Anterior chest incision well approximated. Left lower extremity EVH site well approximated without redness or drainage. NEUROLOGIC: Cranial nerves II through XII intact MUSKULOSKELETAL: Able to move all extremities, strength equal bilaterally PSYCHIATRIC: Alert and oriented to person place and time, appropriate affect, intact judgment and insight - Allied health notes Allied health notes reviewed: nursing - Labs CBC & Chem 7: 03/10/23 07:26 03/10/23 07:26 Labs: Abnormal Lab Results - Last 24 Hours (Table) 03/10/23 03/10/23 03/10/23 Range/Units 11:28 16:21 20:07 POC Glucose (mg/dL) 156 H 214 H 163 H (70-110) mg/dL 03/11/23 Range/Units 06:05 POC Glucose (mg/dL) 131 H (70-110) mg/dL - Imaging and Cardiology Chest x-ray: report reviewed, image reviewed Assessment and Plan Assessment: Coronary artery disease with left main disease, status post 2 vessel CABG Hyperlipidemia, treated, cholesterol 148, LDL 51, triglycerides 201 Cardiomyopathy/chronic systolic heart failure with decreased systolic function, EF 35% on MARY 02/28/23 Moderate to severe central mitral regurgitation on MARY 02/28/23, status post mitral valve repair Asthma with multiple exacerbations, relieved with steroids Severe restrictive lung disease, FEV1 42% of predicted Diabetes mellitus, hemoglobin A1c 6.9% Previous tobacco dependence GERD Osteoarthritis Covid infection in September 2022 Postoperative acute blood loss anemia, expected Postoperative prolonged mechanical ventilation, expected Hypotension requiring pressor use, resolved Acute delirium, likely due to lack of sleep, resolved Cardiac and medical debility Plan: Continue to maximize medical therapy with aspirin, statin, Plavix, and beta analisa with hold parameters. Will increase beta analisa as tolerated, increase to 100 mg twice daily today Continue Cozaar for afterload reduction, Aldactone added per cardiology Continue oral steroids per her home dose Encourage incentive spirometry 10 times every hour while awake. Bronchodilators per pulmonology. Will monitor daily labs and chest x-rays. Electrolyte replacement per protocol. Continue IV Lasix will transition to oral discharge GI/DVT prophylaxis. Pain control with current medication regimen. Increase activity, ambulate as tolerated, PT/OT/cardiac rehab following Insulin management per internal medicine service. Patient is diabetic with hemoglobin A1c 6.9%. Continue patient's home vesicare for overactive bladder Strict accurate intake and output Daily weights Anticipate discharge to home with home care this afternoon More recommendations to follow based
[2023-03-11] MEDS: ALBUTEROL 90 MCG INHALATION SCH ×2 (09:43→11:57)
[2023-03-11 09:53] LABS: HCT 29.4 % (34.0-46.0); HGB 9.4 gm/dL (11.4-16.0); Hypochromasia Moderate; MCHC 31.8 g/dL (31.0-37.0); Mean Platelet Volume 8.8; Platelet Count 175 k/uL (150-450); Poikilocytosis Slight; RBC 3.23 m/uL (3.80-5.40); RDW 14.7 % (11.5-15.5); WBC 14.8 k/uL (3.8-10.6)
[2023-03-11 10:19] LABS: Calcium 9.2 mg/dL (8.4-10.2); Potassium 3.9 mmol/L (3.5-5.1)
[2023-03-11 11:19] LABS: Glucose,Whole Blood 174 mg/dL (70-110)
--- NOTE | 2023-03-11 11:58 | P.PN ---
Subjective Progress Note Date: 03/11/23 HISTORY OF PRESENT ILLNESS: Patient is pleasant 77-year-old female with history of CAD, left main disease, hyperlipidemia, cardiomyopathy, moderate to severe mitral regurgitation, asthma, diabetes mellitus type 2, tobacco abuse, GERD, prior COVID-19 infection. She underwent CABG 2 as well as mitral valve repair and additionally had postoperative anemia and thrombocytopenia with somewhat prolonged intubation. 03/07 Patient denies any chest pain or pressure. She admits to continued shortness breath however appears stable. She denies any lightheadedness or dizziness. Remains in sinus rhythm. 03/08 Patient seen and examined. Patient still has some dyspnea however states overall she is feeling somewhat better. She denies any chest pain or pressure. Blood pressures have been somewhat elevated in the 140s to 160s systolic and metoprolol had been increased this morning. We will increase losartan from 25- 50. Has had good urine output with the Lasix. Creatinine stable. 03/09/2023 The patient is a 77-year-old female with history of bronchial asthma who underwent cardiac catheterization by Dr. Negrete and was found to have severe coronary artery disease, her MARY showed significant mitral regurgitation with evidence of cardiomyopathy. She underwent CABG with BRITO to the LAD and SVG to the OM and repair of the mitral valve on March 03. She was confused last night but better this morning. She continues to be in sinus mechanism, hemodynamically stable on no vasopressors. She denies any nausea or vomiting. Her son is with her this morning because of the confusion of last night. She has no evidence of ventricular tachycardia. 03/10/2023 Patient examined this morning. She is sitting up in the chair. Patient denies chest pain or pressure. She reports chest soreness at the site of her incision. She reports that she was coughing a lot overnight and did not sleep very well. Telemetry reveals sinus mechanism. Vital signs are stable. Mildly tachycardic this morning. 03/11/2023 Patient examined this morning. She is sitting up in the chair. She denies chest pain or pressure. She denies shortness of breath. Telemetry reveals sinus tachycardia with heart rate between 100-115. Her beta analisa has been increased this morning per cardiothoracic surgery. PHYSICAL EXAM: VITAL SIGNS: Reviewed. GENERAL: Well-developed in no acute distress. NECK: Supple. No JVD or thyromegaly LUNGS: Respirations even and unlabored. Lungs essentially clear to auscultation bilaterally, diminished at the bases. HEART: Regular rate and rhythm. S1 and S2 heard. Systolic murmur noted. EXTREMITIES: Normal range of motion. No clubbing or cyanosis. Peripheral pulses intact. No lower extremity edema ASSESSMENT: Coronary status post CABG 2 Moderate severe central mitral regurgitation, status post mitral valve repair Hyperlipidemia Chronic congestive heart failure, currently euvolemic, EF 35% Ischemic cardiomyopathy COPD/restrictive lung disease Diabetes mellitus type 2 Tobacco abuse Anemia PLAN: Continue postoperative management per cardiothoracic surgery Continue current cardiac medications Continue telemetry monitoring. Beta analisa increased this morning per CT surgery Increase activity as tolerated Encouraged use of incentive spirometer Patient is stable for discharge from a cardiac standpoint Nurse practitioner note has been reviewed by physician. Signing provider agrees with the documented findings, assessment, and plan of care. Objective - Vital Signs Vital signs: Vital Signs Temp 97.8 F 03/11/23 04:00 Pulse 114 H 03/11/23 08:00 Resp 16 03/11/23 08:00 BP 134/65 03/11/23 08:00 Pulse Ox 99 03/11/23 08:00 FiO2 10 03/08/23 08:00 Intake & Output 03/10/23 03/11/23 03/11/23 18:59 06:59 18:59 Intake Total 960 240 Output Total 400 1000 Balance 560 -1000 240 Weight 80.1 kg Intake: Oral 960 240 Output: Urine 400 1000 Other: Voiding Method Toilet Toilet Toilet ABP, PAP, CO, CI - Last Documented Arterial Blood Pressure 117/64 Pulmonary Artery Pressure 35/13 Cardiac Output 4.2 Cardiac Index 2.4 - Labs CBC & Chem 7: 03/11/23 09:01 03/11/23 09:01 Labs: Abnormal Lab Results - Last 24 Hours (Table) 03/10/23 03/10/23 03/11/23 Range/Units 16:21 20:07 06:05 WBC (3.8-10.6) k/uL RBC (3.80-5.40) m/uL Hgb (11.4-16.0) gm/dL Hct (34.0-46.0) % Carbon Dioxide (22-30) mmol/L Glucose (74-99) mg/dL POC Glucose (mg/dL) 214 H 163 H 131 H (70-110) mg/dL 03/11/23 03/11/23 03/11/23 Range/Units 09:01 09:01 11:17 WBC 14.8 H (3.8-10.6) k/uL RBC 3.23 L (3.80-5.40) m/uL Hgb 9.4 L (11.4-16.0) gm/dL Hct 29.4 L (34.0-46.0) % Carbon Dioxide 31 H (22-30) mmol/L Glucose 182 H (74-99) mg/dL POC Glucose (mg/dL) 174 H (70-110) mg/dL
--- NOTE | 2023-03-11 12:28 | P.DS ---
Providers Date of admission: 03/01/23 08:31 Expected date of discharge: 03/11/23 Attending physician: Seth Astorga MD Consults: 02/27/23 11:19 Consult Physician Routine Consulting Provider: Seth Astorga Consult Reason/Comments: eval for CABG Do you want consulting provider notified?: Yes 02/27/23 12:31 Consult Physician Routine Consulting Provider: Kade Hughes Consult Reason/Comments: preop clearence Do you want consulting provider notified?: Already Contacted 03/01/23 08:30 Consult Physician Routine Consulting Provider: Wily Cuenca Consult Reason/Comments: medical management Do you want consulting provider notified?: Yes 03/01/23 09:46 Consult to Anesthesia Routine Consulting Provider: Anesthesia,Services Consult Reason/Comments: Cardiac Surgery Pre-Op 03/02/23 13:32 Consult Physician Routine Consulting Provider: Chastity Mckenna Consult Reason/Comments: Management Development Specialist Consult: post cardiac surgery Do you want consulting provider notified?: Yes 03/09/23 07:20 Consult Physician Routine Consulting Provider: Suraj Odell Consult Reason/Comments: IPR at DC Do you want consulting provider notified?: Yes Primary care physician: [facility] Course: FINAL DIAGNOSIS: 1. Coronary artery disease with left main disease 2. Hyperlipidemia, treated, cholesterol 148, LDL 51, triglyceride 201 3. Cardiomyopathy/chronic systolic heart failure with decreased systolic function, EF 35% on MARY 02/28/2023 4. Moderate to severe central mitral regurgitation 5. Asthma with multiple exacerbations, relieved with steroids 6. Severe restrictive lung disease, FEV1 42% of predicted 7. Diabetes mellitus, hemoglobin A1c 6.9% 8. Previous tobacco dependence 9. GERD 10. Osteoarthritis 11. Covid infection in September 2022 12. Postoperative acute blood loss anemia 13. Postoperative prolonged mechanical ventilation 14. Hypotension requiring pressor use, resolved 15. Acute delirium, likely due to lack of sleep, resolved 16. Cardiac and medical debility PRINCIPAL PROCEDURE: 1. Coronary artery bypass graft 2 with left internal thoracic artery to the left anterior descending artery, reverse saphenous vein graft from the aorta to the first obtuse marginal artery 2. Mitral valve repair with a #26 physio-2 annuloplasty ring 3. Endoscopic harvesting of the left greater saphenous vein 4. Left atrial appendage ligation with a #35 mm AtriClip 5. Graft flow measurements using the [employer] flowmeter system 6. Intraoperative transesophageal echocardiogram and insertion of right common femoral arterial line by anesthesia HISTORY OF PRESENT ILLNESS: This is a 77-year-old obese female who follows outpatient with Dr. Pearson for primary care, Dr. Negrete for cardiology, and Dr. Swift for pulmonology. She reported that she had ongoing cold and congestion type symptoms with shortness of breath intermittently over the last 2 years. She was prescribed intermittent doses of steroids per Dr. Swift which helped for about a month and then symptoms would return. She continued to deny any symptoms of chest pain, chest heaviness, palpitations, or any other symptomatology. Echocardiogram completed in the office in September 2022 demonstrated dilated left ventricle with decreased systolic function, EF 35-40%, borderline left ventricular hypertrophy, medium-size hypokinetic areas of the inferior and inferior septal tripathi from the base to the mid wall, dilated left atrium, moderate eccentric mitral regurgitation, mild MAC, and centrally directed mild tricuspid regurgitation. Due to her cardiomyopathy she was recommended to undergo heart catheterization but unfortunately had canceled multiple times due to her breathing difficulties. She was finally brought in and had heart catheterization by Dr. Negrete which demonstrated left main coronary artery disease. Consultation was placed to Dr. Astorga from cardiothoracic surgery. She was recommended to undergo MARY to further evaluate her mitral valve. MARY confirmed reduced left ventricular systolic function with EF 35%, moderate to severe central mitral regurgitation. Surgically the patient was recommended to undergo coronary artery bypass surgery along with mitral valve repair. The usual perioperative course was discussed in detail with the patient and her family, all risks and benefits were explained, all questions were answered, and consent was obtained to proceed with surgery. The patient was kept inpatient due to the nature of her disease process. HOSPITAL COURSE: The patient was brought to the preoperative area 03/02/23, prepared in the usual fashion, and subsequently taken to the operating room where performed 2 vessel CABG along with mitral valve repair. Upon completion of surgery the patient was transferred to the cardiovascular intensive care unit where she was recovered and monitored hemodynamically. She did experience prolonged mechanical ventilation but was eventually extubated, all lines, tubes, and drips were discontinued when appropriate, and she was transferred to 3 cardiac stepdown unit for further monitoring and rehabilitation. Her oxygen was titrated down, she continued to work with physical and occupational therapy, she was tolerating oral diet, her pain was controlled, and she was finally ready to be discharged to home with [facility] care on postoperative day #9. Her son did want her to go to rehab as he was concerned about her safety, and there was a plan in place for her to go to inpatient rehab, however the patient adamantly refused rehab and wished to be discharged to home. She received written and verbal instruction regarding her medications, activity restrictions, signs and symptoms requiring physician notification, and follow-up appointments. Patient Condition at Discharge: Stable Plan - Discharge Summary Discharge Rx Participant: No New Discharge Prescriptions: New Spironolactone [Aldactone] 25 mg PO DAILY #30 tab Aspirin 325 mg PO DAILY #30 tab Metoprolol Tartrate [Lopressor] 100 mg PO BID #60 tab Clopidogrel [Plavix] 75 mg PO DAILY #30 tab Pantoprazole [Protonix] 40 mg PO AC-BRKFST #30 tab Sennosides-Docusate Sodium [Senokot-S] 2 each PO HS PRN tab PRN Reason: Constipation Losartan [Cozaar] 50 mg PO DAILY #30 tab Continue Solifenacin Succinate [Vesicare] 10 mg PO HS Rosuvastatin Calcium [Crestor] 5 mg PO DAILY Latanoprost Ophth [Xalatan 0.005%] 1 drop BOTH EYES HS Furosemide [Lasix] 20 mg PO MOWEFR Multivit with Calcium,Iron,Min [Women's Multivitamin] 1 tab PO DAILY Ascorbic Acid [Vitamin C] 500 mg PO DAILY Carboxymethylcellulose Sodium [Refresh Tears] 1 drop BOTH EYES TID PRN PRN Reason: Dry Eye(S) Albuterol Inhaler [Ventolin Hfa Inhaler] 2 puff INHALATION RT-QID PRN each PRN Reason: Shortness Of Breath Or Wheezing Codeine Phosphate/Guaifenesin [Codeine Phosphate/Guaifenesin 10-100 mg/5 ml] 10 ml PO Q4H PRN #100 ml PRN Reason: Cough predniSONE 10 mg PO DIRECTED #30 tab Changed metFORMIN HCL [Glucophage] 500 mg PO BID #60 tab Acetaminophen [Tylenol Extra Strength] 500 mg PO Q4HR PRN #0 PRN Reason: Pain Discontinued atenoloL [Tenormin] 25 mg PO BID Digoxin 0.25 mg PO HS Nystatin 100,000 Unit/ml Susp [Mycostatin Oral Susp] 5 ml PO TID BETWEEN MEALS Esomeprazole Magnesium [NexIUM] 20 mg PO DAILY Enalapril [Vasotec] 5 mg PO HS Discharge Medication List Rosuvastatin Calcium [Crestor] 5 mg PO DAILY 07/16/14 [History] Solifenacin Succinate [Vesicare] 10 mg PO HS 07/16/14 [History] Latanoprost Ophth [Xalatan 0.005%] 1 drop BOTH EYES HS 08/17/17 [History] Furosemide [Lasix] 20 mg PO MOWEFR 12/16/20 [History] Carboxymethylcellulose Sodium [Refresh Tears] 1 drop BOTH EYES TID PRN 11/16/22 [History] Multivit with Calcium,Iron,Min [Women's Multivitamin] 1 tab PO DAILY 11/16/22 [History] Ascorbic Acid [Vitamin C] 500 mg PO DAILY 12/03/22 [History] Albuterol Inhaler [Ventolin Hfa Inhaler] 2 puff INHALATION RT-QID PRN each 01/16/23 [Rx] Codeine Phosphate/Guaifenesin [Codeine Phosphate/Guaifenesin 10-100 mg/5 ml] 10 ml PO Q4H PRN #100 ml 01/16/23 [Rx] predniSONE 10 mg PO DIRECTED #30 tab 01/16/23 [Rx] Acetaminophen [Tylenol Extra Strength] 500 mg PO Q4HR PRN #0 03/11/23 [Rx] Aspirin 325 mg PO DAILY #30 tab 03/11/23 [Rx] Clopidogrel [Plavix] 75 mg PO DAILY #30 tab 03/11/23 [Rx] Losartan [Cozaar] 50 mg PO DAILY #30 tab 03/11/23 [Rx] Metoprolol Tartrate [Lopressor] 100 mg PO BID #60 tab 03/11/23 [Rx] Pantoprazole [Protonix] 40 mg PO AC-BRKFST #30 tab 03/11/23 [Rx] Sennosides-Docusate Sodium [Senokot-S] 2 each PO HS PRN tab 03/11/23 [Rx] Spironolactone [Aldactone] 25 mg PO DAILY #30 tab 03/11/23 [Rx] metFORMIN HCL [Glucophage] 500 mg PO BID #60 tab 03/11/23 [Rx] Follow up Appointment(s)/Referral(s): Rehab [facility] ,Cardiac [NON-STAFF] - 4 Weeks (You will receive a phone call in approximately 4-6 weeks for evaluation for cardiac rehab) Katy Luciencare, [NON-STAFF] - (To be seen the day after discharge, then 2-3 times per week for 4 weeks) Seth Astorga MD [STAFF PHYSICIAN] - 03/31/23 2:00 pm Arias Negrete MD [STAFF PHYSICIAN] - 03/24/23 10:15 am Francisco Swift MD [STAFF PHYSICIAN] - 03/27/23 10:15 am Magnus Pearson MD [Primary Care Provider] - 03/30/23 9:30 am Robyn Saavedra NPC [Nurse Practitioner] - 03/18/23 1:00 pm (You will be seen in the surgeon's office behind the hospital in [facility], [address]. Office phone number is ) Ambulatory/Diagnostic Orders: Complete Blood Count w/diff [LAB.AMB] Time Frame: 3 Days, Location: None Selected Comprehensive Metabolic Panel [LAB.AMB] Time Frame: 3 Days, Location: None Selected Activity/Diet/Wound Care/Special Instructions: DISCHARGE INSTRUCTIONS: 1. No driving for 4 weeks, or until physician gives their ok. 2. The patient should sleep in their own bed, no medical bed needed. 3. Stairs are not an issue. If the bedroom is upstairs, it is advised that the patient go up at night and down in the morning for the first week. Go slowly, using handrail and take 1 step at a time. 4. SHUKRI hose are to be worn for 30 days post surgery or until physician discontinues. 5. Heart hugger is to be worn 100% of the time until physician discontinues.(except when showering) 6. No lifting, pushing, or pulling more than 10 pounds for 12 weeks. The physician will advise of any restriction changes. 7. The patient is expected to continue the prescribed walking program. 8. Continue pain control per as needed orders. 9. Continue with incentive spirometry and splinting/heart hugger until otherwise directed by the physician. 10. Must shower daily using liquid antibacterial soap 11. Routine sternal incision care. No powders, lotions, ointments on incisions. No dressings are necessary on incisions unless they are draining. Dermabond tape is to remain on sternal incision until surgeon follow-up. 12. Please call surgeon/TANK ASSEMBLER for temp greater than 101 F or purulent drainage from incisions. 13. You should weigh yourself daily, record and bring log with you to follow up appointments. 14. All prescriptions given by surgeon for 30 days. Refills need to be filled through csw/primary care physician. 15. A Red armband has been placed on the patient. It should be worn for 30 days post discharge from surgery and will be removed by the cardiac surgeons. If an ER visit is necessary, please make sure the number on the Red armband is called before going to ER. 16. You have been referred to and are expected to begin Cardiac Rehab in approximately 4-6 weeks. HOME HEALTH SERVICES TO PROVIDE: RN SKILLED HOME CARE SERVICES FOR POST-OP SURGICAL PATIENTS WITH THE FOLLOWING: Coronary Artery Bypass Surgery (CABG), Mitral Valve Replacement/Repair ( MVR), Aortic Valve Replacement/Repair (AVR) RN TO CONTINUE EDUCATION FROM ``ROAD TO A HEALTH HEART PATIENT EDUCATION MANUAL (GIVEN TO PATIENT IN THE HOSPITAL) MEDICATION RECONCILIATION WITH EDUCATION NEEDED ON FIRST HOME VISIT EMPHASIZE IMPORTANCE OF WEARING BREAST SUPPORT/HEART HUGGER ENCOURAGE USE OF INCENTIVE SPIROMETER 10 X EVERY HOUR WHILE AWAKE ENCOURAGE UTILIZATION OF LOWER EXTREMITY COMPRESSION STOCKINGS/SHUKRI HOSE and ELEVATE LEGS ABOVE LEVEL OF HEART WHILE AT REST. ENCOURAGE AMBULATION 3-5x/day INCREASING TOLERATES, WHILE AVOIDING EXTREMES IN TEMPERATURE FREQUENCY: RN TO OPEN THE PATIENT WITHIN 24 HOURS OF DISCHARGE FROM THE HOSPITAL WITH [place]LEHEALTH [place] [facility] [place] VISIT 2-3 X A WEEK FOR 4 WEEKS ESTABLISHED BY PATIENT NEEDS. LABORATORY: CBC, CMP TO BE DRAWN ON THE THIRD DAY HOME, (RAN STAT) FAX RESULTS TO [phone]. TELEHEALTH PARAMETERS: WEIGHT: NOTIFY MD OF WEIGHT GAIN OF 2 LBS IN 24 HOURS OR 5 LBS IN ONE WEEK HR: NOTIFY MD OF HR <55 BPM OR HR>100 BPM BP: NOTIFY MD IF BP <90/55 OR BP>140/100 O2 SAT: NOTIFY MD IF PO2<93% ON ROOM AIR SEND TELEHEALTH REPORT TO HAND RUG CLEANER AND CARDIOVASCULAR SURGEON THE FIRST WEEK OF CARE AND THEN BI-WEEKLY. PLEASE ADDITIONALLY COMMUNICATE ANY ABNORMALS AND NEW FINDINGS TO THE SURGEONS OFFICE. Discharge Disposition: HOME WITH HOME HEALTH SERVICES
[2023-03-11 12:32] VITALS: BP 119/59; PULSE 99
--- NOTE | 2023-03-11 12:48 | P.PN ---
Subjective Progress Note Date: 03/11/23 On today's evaluation of 03/11/2023, the patient has no complaints. No shortness of breath. The patient using incentive spirometer. She is on room air oxygen. The patient is going to be discharged to home. Objective - Vital Signs Vital signs: Vital Signs Temp 97.8 F 03/11/23 04:00 Pulse 99 03/11/23 12:00 Resp 16 03/11/23 12:00 BP 119/59 03/11/23 12:00 Pulse Ox 99 03/11/23 12:00 FiO2 10 03/08/23 08:00 Intake & Output 03/10/23 03/11/23 03/11/23 18:59 06:59 18:59 Intake Total 960 240 Output Total 400 1000 Balance 560 -1000 240 Weight 80.1 kg Intake: Oral 960 240 Output: Urine 400 1000 Other: Voiding Method Toilet Toilet Toilet ABP, PAP, CO, CI - Last Documented Arterial Blood Pressure 117/64 Pulmonary Artery Pressure 35/13 Cardiac Output 4.2 Cardiac Index 2.4 - Exam - Exam CONSTITUTIONAL: Appears comfortable, cooperative, no acute distress RESPIRATORY: Lungs sounds very diminished bilaterally. Respirations even, nonlabored. Currently on room air with oxygen saturation 96%. Still only able to achieve 500 mL on incentive spirometry. Strong nonproductive cough. CARDIOVASCULAR: S1, S2 present. Regular rate and rhythm, sinus rhythm on telemetry. Sternum stable. Palpable peripheral pulses bilaterally. No edema present. No calf pain or tenderness noted. Heart hugger in place with patient demonstrating appropriate use. GASTROINTESTINAL: Abdomen soft, nontender, nondistended. Active bowel sounds present 4 quadrants. Tolerating diet. Positive bowel movement x2 03/07/23 GENITOURINARY: Continues to void, output 1000 mL the last 24 hours INTEGUMENTARY: Skin is warm and dry with evidence of good perfusion. Anterior chest incision well approximated. Left lower extremity EVH site well approximated without redness or drainage. NEUROLOGIC: Cranial nerves II through XII intact MUSKULOSKELETAL: Able to move all extremities, strength equal bilaterally PSYCHIATRIC: Alert and oriented to person place and time, appropriate affect, intact judgment and insight - Labs CBC & Chem 7: 03/11/23 09:01 03/11/23 09:01 Labs: Abnormal Lab Results - Last 24 Hours (Table) 03/10/23 03/10/23 03/11/23 Range/Units 16:21 20:07 06:05 WBC (3.8-10.6) k/uL RBC (3.80-5.40) m/uL Hgb (11.4-16.0) gm/dL Hct (34.0-46.0) % Carbon Dioxide (22-30) mmol/L Glucose (74-99) mg/dL POC Glucose (mg/dL) 214 H 163 H 131 H (70-110) mg/dL 03/11/23 03/11/23 03/11/23 Range/Units 09:01 09:01 11:17 WBC 14.8 H (3.8-10.6) k/uL RBC 3.23 L (3.80-5.40) m/uL Hgb 9.4 L (11.4-16.0) gm/dL Hct 29.4 L (34.0-46.0) % Carbon Dioxide 31 H (22-30) mmol/L Glucose 182 H (74-99) mg/dL POC Glucose (mg/dL) 174 H (70-110) mg/dL Assessment and Plan Plan: Postop day #8, status post two-vessel bypass grafting, mitral valve repair, and left atrial appendage ligation. Routine postoperative ventilator management, with failure to wean from mechanical ventilation, status post extubation, 03/05/2023. History of CAD. Ischemic cardiomyopathy, with ejection fraction 35%. Moderate to severe mitral regurgitation. Severe persistent asthma. The patient is steroid dependent and the patient takes prednisone on outpatient basis Previous tobacco dependence. Type 2 diabetes mellitus. Degenerative disc disease. Gastroesophageal reflux disease. Plan Patient is to be discharged home today. She is on room air oxygen. She'll continue using the senna spirometer. She is on aspirin and Plavix. Continue oral steroids per home dose. Continue home bronchodilators Surgical one-sided dry clean and intact Continue beta blockers and the patient is also on Cozaar hydralazine and Aldactone was also added by cardiology
--- NOTE | 2023-03-11 13:38 | P.PN ---
Subjective This is a pleasant 77 years old female with multiple medical problems who was admitted with coronary artery disease status post 2 vessel CABG and has severe mitral valve regurgitation and underwent mitral valve repair at the same time with ligation of the left atrial appendage. Postoperatively she is doing well, she is awake alert lying in bed comfortable, relaxed she denies any chest pain or dyspnea. She denies change in urine or bowel habits. Vitals are stable, she has no fever for more than 48 hours, heart rate is about 99. Blood pressure is stable. She has mild leukocytosis but she is also on steroids. Hemoglobin 9.4. Further workup showed ischemic cardiomyopathy with ejection fraction 35%. Patient with history of severe asthma but this is a stable. Objective - Vital Signs Vital signs: Vital Signs Temp 97.8 F 03/11/23 04:00 Pulse 99 03/11/23 12:00 Resp 16 03/11/23 12:00 BP 119/59 03/11/23 12:00 Pulse Ox 99 03/11/23 12:00 FiO2 10 03/08/23 08:00 Intake & Output 03/10/23 03/11/23 03/11/23 18:59 06:59 18:59 Intake Total 960 358 Output Total 400 1000 Balance 560 -1000 358 Weight 80.1 kg Intake: Oral 960 358 Output: Urine 400 1000 Other: Voiding Method Toilet Toilet Toilet ABP, PAP, CO, CI - Last Documented Arterial Blood Pressure 117/64 Pulmonary Artery Pressure 35/13 Cardiac Output 4.2 Cardiac Index 2.4 - Exam GENERAL: The patient is alert and oriented x3, not in any acute distress. Well developed, well nourished. HEENT: Pupils are round and equally reacting to light. EOMI. No scleral icterus. No conjunctival pallor. Normocephalic, atraumatic. No pharyngeal erythema. No thyromegaly. -CARDIOVASCULAR: S1 and S2 present. No murmurs, rubs, or gallops. Surgical wound closed and healing PULMONARY: Chest is clear to auscultation, no wheezing or crackles. ABDOMEN: Soft, nontender, nondistended, normoactive bowel sounds. No palpable organomegaly. MUSCULOSKELETAL: No joint swelling or deformity. EXTREMITIES: No cyanosis, clubbing, or pedal edema. NEUROLOGICAL: Gross neurological examination did not reveal any focal deficits. SKIN: No rashes. no petechiae. - Labs CBC & Chem 7: 03/11/23 09:01 03/11/23 09:01 Labs: Abnormal Lab Results - Last 24 Hours (Table) 03/10/23 03/10/23 03/11/23 Range/Units 16:21 20:07 06:05 WBC (3.8-10.6) k/uL RBC (3.80-5.40) m/uL Hgb (11.4-16.0) gm/dL Hct (34.0-46.0) % Carbon Dioxide (22-30) mmol/L Glucose (74-99) mg/dL POC Glucose (mg/dL) 214 H 163 H 131 H (70-110) mg/dL 03/11/23 03/11/23 03/11/23 Range/Units 09:01 09:01 11:17 WBC 14.8 H (3.8-10.6) k/uL RBC 3.23 L (3.80-5.40) m/uL Hgb 9.4 L (11.4-16.0) gm/dL Hct 29.4 L (34.0-46.0) % Carbon Dioxide 31 H (22-30) mmol/L Glucose 182 H (74-99) mg/dL POC Glucose (mg/dL) 174 H (70-110) mg/dL Assessment and Plan Assessment: Coronary artery disease status post 2 vessel coronary artery bypass grafting Moderate to severe mitral regurgitation status post mitral valve repair and ligation of the left atrial appendages Ischemic cardiomyopathy with ejection fraction 35% History of severe asthma, and upon activation Obesity with BMI 34.5 Plan: Continue with oral Lasix Continue with aspirin and Plavix as per cardiology and surgery team, risk of bleeding with this medication are explained for the patient details and she verbalized understanding and acceptance Patient states that she was taking metformin at home but her ECP Dr. Pearson noted to 500 daily because she was hypoglycemic, however currently patient is on prednisone and she is going to be discharged on steroids as per my discussion with him he therefore I recommended to continue with metformin 500 mg twice a day. This was discussed with the primary team as well as with the patient and she is agreeable Several consultants on the case including pulmonary, cardiology and cardiot horacic surgery team DVT and GI prophylaxis We recommend patient follow up with PCP Dr. Leon in 1 week after discharge and she was instructed with the same Follow-up with other consultants further recommendations as an outpatient Thank you for consulting us
[2023-03-11 14:47] VITALS: BMI 34.4
== END 2023-03-11 14:58 | disposition home health service (06) | DRG 216 ==
LOC: CATHCVL 07:26 → 3SCARD 10:15 → CATHCVL 03-01 08:31 → 2SICU 03-02 06:20 → 3SCARD 03-09 15:52
PROVIDERS: ADMIT Thoracic Surgery (Cardiothoracic Vascular Surgery); ATTEND Thoracic Surgery (Cardiothoracic Vascular Surgery)
PROC: 4A023N7 Measurement of Cardiac Sampling and Pressure, Left Heart, Percutaneous Approach (ICD-10-PCS; principal; 2023-02-27 09:00)
PROC: B2111ZZ Fluoroscopy of Multiple Coronary Arteries using Low Osmolar Contrast (ICD-10-PCS; principal; 2023-02-27 09:00)
PROC: B24BZZ4 Ultrasonography of Heart with Aorta, Transesophageal (ICD-10-PCS; 2023-02-28)
PROC: 021009W Bypass Coronary Artery, One Artery from Aorta with Autologous Venous Tissue, Open Approach (ICD-10-PCS; 2023-03-02 07:30)
PROC: B24BZZ4 Ultrasonography of Heart with Aorta, Transesophageal (ICD-10-PCS; 2023-03-02 07:30)
PROC: 02UG0JZ Supplement Mitral Valve with Synthetic Substitute, Open Approach (ICD-10-PCS; 2023-03-02 07:30)
PROC: 06BQ4ZZ Excision of Left Saphenous Vein, Percutaneous Endoscopic Approach (ICD-10-PCS; 2023-03-02 07:30)
PROC: 02L70CK Occlusion of Left Atrial Appendage with Extraluminal Device, Open Approach (ICD-10-PCS; 2023-03-02 07:30)
PROC: 5A1221Z Performance of Cardiac Output, Continuous (ICD-10-PCS; 2023-03-02 07:30)
PROC: 03BY4ZZ Excision of Upper Artery, Percutaneous Endoscopic Approach (ICD-10-PCS; 2023-03-02 07:30)
PROC: 5A1945Z Respiratory Ventilation, 24-96 Consecutive Hours (ICD-10-PCS; 2023-03-02 07:30)
PROC: 0210099 Bypass Coronary Artery, One Artery from Left Internal Mammary with Autologous Venous Tissue, Open Approach (ICD-10-PCS; 2023-03-02 07:30)
PROC: 3E033XZ Introduction of Vasopressor into Peripheral Vein, Percutaneous Approach (ICD-10-PCS; 2023-03-03)
DX: I25.10 Atherosclerotic heart disease of native coronary artery without angina pectoris (principal); J96.01 Acute respiratory failure with hypoxia; I50.22 Chronic systolic (congestive) heart failure; D62 Acute posthemorrhagic anemia; J98.11 Atelectasis; E87.3 Alkalosis; F05 Delirium due to known physiological condition; I42.0 Dilated cardiomyopathy; R45.1 Restlessness and agitation; D72.829 Elevated white blood cell count, unspecified; J44.9 Chronic obstructive pulmonary disease, unspecified; I11.0 Hypertensive heart disease with heart failure; I95.9 Hypotension, unspecified; E66.9 Obesity, unspecified; R00.1 Bradycardia, unspecified; I44.0 Atrioventricular block, first degree; D69.6 Thrombocytopenia, unspecified; I34.81 Nonrheumatic mitral (valve) annulus calcification; I77.1 Stricture of artery; E11.9 Type 2 diabetes mellitus without complications; J45.50 Severe persistent asthma, uncomplicated; I34.0 Nonrheumatic mitral (valve) insufficiency; R53.81 Other malaise; Z68.34 Body mass index [BMI] 34.0-34.9, adult; I25.5 Ischemic cardiomyopathy; J98.4 Other disorders of lung; E78.5 Hyperlipidemia, unspecified; K21.9 Gastro-esophageal reflux disease without esophagitis; I48.91 Unspecified atrial fibrillation; N32.81 Overactive bladder; M17.0 Bilateral primary osteoarthritis of knee; Z86.16 Personal history of COVID-19; Z87.891 Personal history of nicotine dependence; Z79.899 Other long term (current) drug therapy; Z79.84 Long term (current) use of oral hypoglycemic drugs; Z88.8 Allergy status to other drugs, medicaments and biological substances; Z88.6 Allergy status to analgesic agent; Z88.1 Allergy status to other antibiotic agents; Z88.2 Allergy status to sulfonamides; Z79.52 Long term (current) use of systemic steroids; Z71.3 Dietary counseling and surveillance
CPT/HCPCS: 70450; 71045; 71046; 80048; 80053; 80061; 80074; 81003; 82330; 82805; 83036; 83735; 84132; 84443; 85025; 85027; 85610; 85730; 86850; 86891; 86900; 86901; 86920; 87070; 93306; 93312; 93320; 93325; 93458; 93880; 93970; 94002; 94003; 94150; 94640; 94660; 94760

== ENCOUNTER 2023-03-15 13:59 | Observation (INO) | payer MEDICARE, MEDICAID ==
--- NOTE | 2023-03-15 15:05 | ED ---
General Adult HPI - General Chief complaint: Shortness of Breath Stated complaint: Post-op SOB Time Seen by Provider: 03/15/23 14:49 Source: EMS Mode of arrival: EMS Limitations: no limitations - History of Present Illness Initial comments: Dictation was produced using [employer] dictation software. please excuse any grammatical, word or spelling errors. Chief Complaint: 77-year-old female who is 2 weeks status post CABG performed here facility presents to the emergency department for episode of shortness of breath History of Present Illness: [age]-year-old female she is postop day 13 status post CABG, atrial appendage ligation, mitral valve repair. She presents to the ER for episodes of shortness of breath. She states they would last anywhere from 5-30 seconds. She had prostate 5 episodes since 5 AM this morning. No associated chest pain or palpitations. States that her surgical drains were removed recently. Son at the bedside was concerned and brought patient to the emergency department for further care. Patient states that she had a mild cough recently. Nonproductive. No runny nose or sore throat. Denies any leg swelling. She's been sleeping and a upright physician. Denies any lower extremity symptoms. Patient denies any shortness of breath at the bedside. States that symptoms only come in waves. The ROS documented in this emergency department record has been reviewed and confirmed by me. Those systems with pertinent positive or negative responses have been documented in the HPI. All other systems are other negative and/or noncontributory. - Related Data Home Medications Medication Instructions Recorded Confirmed Rosuvastatin Calcium [Crestor] 5 mg PO DAILY 07/16/14 02/27/23 Solifenacin Succinate [Vesicare] 10 mg PO HS 07/16/14 02/27/23 Latanoprost Ophth [Xalatan 0.005%] 1 drop BOTH EYES HS 08/17/17 02/27/23 Furosemide [Lasix] 20 mg PO MOWEFR 12/16/20 02/27/23 Carboxymethylcellulose Sodium 1 drop BOTH EYES TID PRN 11/16/22 02/27/23 [Refresh Tears] Multivit with Calcium,Iron,Min 1 tab PO DAILY 11/16/22 02/27/23 [Women's Multivitamin] Ascorbic Acid [Vitamin C] 500 mg PO DAILY 12/03/22 02/27/23 Previous Rx's Medication Instructions Recorded Albuterol Inhaler [Ventolin Hfa 2 puff INHALATION RT-QID PRN each 01/16/23 Inhaler] Codeine Phosphate/Guaifenesin 10 ml PO Q4H PRN #100 ml 01/16/23 [Codeine Phosphate/Guaifenesin 10-100 mg/5 ml] predniSONE 10 mg PO DIRECTED #30 tab 01/16/23 Acetaminophen [Tylenol Extra 500 mg PO Q4HR PRN #0 03/11/23 Strength] Aspirin 325 mg PO DAILY #30 tab 03/11/23 Clopidogrel [Plavix] 75 mg PO DAILY #30 tab 03/11/23 Losartan [Cozaar] 50 mg PO DAILY #30 tab 03/11/23 Metoprolol Tartrate [Lopressor] 100 mg PO BID #60 tab 03/11/23 Pantoprazole [Protonix] 40 mg PO AC-BRKFST #30 tab 03/11/23 Sennosides-Docusate Sodium 2 each PO HS PRN tab 03/11/23 [Senokot-S] Spironolactone [Aldactone] 25 mg PO DAILY #30 tab 03/11/23 metFORMIN HCL [Glucophage] 500 mg PO BID #60 tab 03/11/23 Allergies Allergy/AdvReac Type Severity Reaction Status Date / Time budesonide Allergy Wheezing Verified 03/15/23 14:24 fluticasone Allergy Rapid Verified 03/15/23 14:24 Heart Rate, dizziness formoterol Allergy Wheezing, Verified 03/15/23 14:24 [From Timescape] Dizziness, Rapid Heart Rate, High BP glycopyrrolate Allergy Wheezing, Verified 03/15/23 14:24 [From Timescape] Dizziness, Rapid Heart Rate, High BP levalbuterol [From Xopenex] Allergy Wheezing, Verified 03/15/23 14:24 Dizziness azithromycin [From Zithromax] AdvReac intercts Verified 03/15/23 14:24 w/Digoxin benzonatate AdvReac Gerd Verified 03/15/23 14:24 dexamethasone AdvReac Gerd Verified 03/15/23 14:24 doxycycline AdvReac Gerd Verified 03/15/23 14:24 ipratropium AdvReac Rapid Verified 03/15/23 14:24 Heart Rate pravastatin sodium AdvReac Swelling Verified 03/15/23 14:24 [From Pravachol] and pain in legs prednisone AdvReac causes Verified 03/15/23 14:24 thrush ranitidine AdvReac Nausea & Verified 03/15/23 14:24 Vomiting & Diarrhea Sulfa (Sulfonamide AdvReac Rash/Hives Verified 03/15/23 14:24 Antibiotics) Review of Systems ROS Statement: Those systems with pertinent positive or pertinent negative responses have been documented in the HPI. ROS Other: All systems not noted in ROS Statement are negative. Past Medical History Past Medical History: Asthma, Coronary Artery Disease (CAD), Diabetes Mellitus, GERD/Reflux, Hyperlipidemia, Osteoarthritis (OA) Additional Past Medical History / Comment(s): cardiomyopathy, elevated heart rate, overactive bladder, glaucoma, hx elevated sed rate,lelo knee pain-arthritis and el[place] cyst, covid in 09/2022 History of Any Multi-Drug Resistant Organisms: None Reported Past Surgical History: Appendectomy, Section, Hysterectomy, Orthopedic Surgery Additional Past Surgical History / Comment(s): 3 left breast biopsies, 3 needle loc on right breast- pt states all benign. lelo rotator cuff repair, lelo. hammer toe and bunionectomy, trigger finger release lelo ring fingers, meniscus repair lelo knees, carpal tunnel lelo, rt thumb fusion, lt ankle surgery, D&C, bilateral cataract surgery and laser surgery, COLONOSCOPY , EGD WITH BIOPSY Past Anesthesia/Blood Transfusion Reactions: No Reported Reaction Past Psychological History: No Psychological Hx Reported Smoking Status: Former smoker Past Alcohol Use History: None Reported Past Drug Use History: None Reported - Past Family History Mother History Unknown: Yes Family Medical History: Congestive Heart Failure (CHF), CVA/TIA, Hypertension Son(s) History Unknown: Yes Family Medical History: Deep Vein Thrombosis (DVT) Additional Family Medical History / Comment(s): DVT IN LEG Father Family Medical History: Congestive Heart Failure (CHF), Hypertension General Exam - General Exam Comments Initial Comments: PHYSICAL EXAM: General Impression: Alert and oriented x3, not in acute distress HEENT: Normocephalic atraumatic, extra-ocular movements intact, pupils equal and reactive to light bilaterally, mucous membranes moist. Cardiovascular: Heart regular rate and rhythm Chest: Able to complete full sentences, no retractions, no tachypnea, surgical site is clean dry and intact without drainage Abdomen: abdomen soft, non-tender, non-distended, no organomegaly Musculoskeletal: Pulses present and equal in all extremities, no peripheral edema Motor: no focal deficits noted Neurological: CN II-XII grossly intact, no focal motor or sensory deficits noted Skin: Intact with no visualized rashes Psych: Normal affect and mood Limitations: no limitations Course Vital Signs 03/15/23 14:20 Temperature 99.1 F Pulse Rate 95 Respiratory 18 Rate Blood Pressure 130/66 O2 Sat by Pulse 100 Oximetry EKG Findings - EKG Comments: EKG Findings:: My EKG interpretation: Ventricular rate 93, sinus rhythm,. 156, QRS 108, QTC 417. No NV prolongation, no QTC prolongation, no ST or T-wave changes noted. EKG compared to 03/09/2033 showing no changes. Overall, this EK G is unremarkable Medical Decision Making - Medical Decision Making Was pt. sent in by a medical professional or institution (, PA, APPRENTICE/LINEMAN, urgent care, hospital, or group home...) When possible be specific @ -No Did you speak to anyone other than the patient for history (EMS, parent, family, police, friend...)? What history was obtained from this source @ -Son at the bedside who witnessed patient's dyspnea and was concerned Did you review nursing and triage notes (agree or disagree)? Why? @ -I reviewed and agree with nursing and triage notes Were old charts reviewed (outside hosp., previous admission, EMS record, old EKG, old radiological studies, urgent care reports/EKG's, group home records)? Report findings @ -Operative notes and parathoracic notes from previous admission were reviewed Differential Diagnosis (chest pain, altered mental status, abdominal pain women, abdominal pain men, vaginal bleeding, musculoskeletal, weakness, fever, dyspnea, syncope, headache, dizziness, GI bleed, back pain, seizure, CVA, palpatations, mental health)? @ -Differential Dyspnea: Coronary syndrome, arrhythmia, tamponade, asthma, COPD, pulmonary embolism, pn eum[place], pneumothorax, pulmonary effusion, anaphylaxis, diabetic ketoacidosis, flailed chest, pulmonary contusion, diaphragmatic rupture, anemia, neuromuscular, this is not meant to be an all-inclusive list. EKG interpreted by me (3pts min.). @ -See above X-rays interpreted by me (1pt min.). @ -Pulmonary venous congestion CT interpreted by me (1pt min.). @ -None done U/S interpreted by me (1pt. min.). @ -None done What testing was considered but not performed or refused? (CT, X-rays, U/S, labs)? Why? @ -None What meds were considered but not given or refused? Why? @ -None Did you discuss the management of the patient with other professionals (hermes qiu i.e. , PA, APPRENTICE/LINEMAN, lab, RT, psych nurse, nursing home social worker, farm marketer, teacher, chief operating officer, patient case manager)? Give summary @ -No Was smoking cessation discussed for >3mins.? @ -No Was critical care preformed (if so, how long)? @ -No Were there social determinants of health that impacted care today? How? (Homelessness, low income, unemployed, alcoholism, drug addiction, transpor tation, low edu. Level, literacy, decrease access to med. care, long term, rehab)? @ -No Was there de-escalation of care discussed even if they declined (Discuss DNR or withdrawal of care, Hospice)? DNR status @ -No What co-morbidities impacted this encounter? (DM, HTN, Smoking, COPD, CAD, Cancer, CVA, ARF, Chemo, Hep., AIDS, mental health diagnosis, sleep apnea, morbid obesity)? @ -Recent open-heart procedure Was patient admitted / discharged? Hospital course, mention meds given and ro [place], prescriptions, significant lab abnormalities, going to OR and other pertinent info. @ -77-year-old female who is approximately 2 weeks postop from open-heart surgery presents to the ER for episodes of dyspnea starting this a.m. CBC, coag panel metabolic panel is within acceptable limits. EKG is unremarkable. Chest x-ray shows no evidence of mild heart failure. Troponin is elevated however this is likely secondary to recent operative procedure. Patient be admitted to [facility] hospitalist group. Case discussed with Dr. Melendrez for admission. Patient given oral Lasix. She is reevaluated at bedside at 4:00 PM still is well-appearing. Undiagnosed new problem with uncertain prognosis? @ -No Drug Therapy requiring intensive monitoring for toxicity (Heparin, Nitro, Insulin, Cardizem)? @ -No Were any procedures done? @ -No Diagnosis/symptom? Acute, or Chronic, or Acute on Chronic? Uncomplicated (without systemic symptoms) or Complicated (systemic symptoms)? @ -1. Acute dyspnea, mild heart failure Side effects of treatment? @ -No Exacerbation, Progression, or Severe Exacerbation? @ -No Poses a threat to life or bodily function? How? (Chest pain, [place], MT, pneumonia, PE, COPD, DKA, ARF, appy, cholecystitis, CVA, Diverticulitis, Homicidal, Suicidal, threat to staff... and all critical care pts) @ -yes - Lab Data Result diagrams: 03/15/23 15:03 03/15/23 15:03 Lab Results 03/15/23 03/15/23 03/15/23 Range/Units 15:03 15:03 15:03 WBC 13.0 H (3.8-10.6) k/uL RBC 3.04 L (3.80-5.40) m/uL Hgb 8.7 L (11.4-16.0) gm/dL Hct 27.6 L (34.0-46.0) % MCV 90.9 (80.0-100.0) fL MCH 28.7 (25.0-35.0) pg MCHC 31.6 (31.0-37.0) g/dL RDW 15.0 (11.5-15.5) % Plt Count 345 (150-450) k/uL MPV 8.0 Neutrophils % 77 % Lymphocytes % 14 % Monocytes % 5 % Eosinophils % 3 % Basophils % 0 % Neutrophils # 10.0 H (1.3-7.7) k/uL Lymphocytes # 1.8 (1.0-4.8) k/uL Monocytes # 0.7 (0-1.0) k/uL Eosinophils # 0.4 (0-0.7) k/uL Basophils # 0.0 (0-0.2) k/uL Hypochromasia Moderate Poikilocytosis Slight PT 11.2 (9.0-12.0) sec INR 1.1 (<1.2) APTT 20.2 L (22.0-30.0) sec Sodium 137 (137-145) mmol/L Potassium 5.4 H (3.5-5.1) mmol/L Chloride 106 (98-107) mmol/L Carbon Dioxide 22 (22-30) mmol/L Anion Gap 9 mmol/L BUN 15 (7-17) mg/dL Creatinine 0.79 (0.52-1.04) mg/dL Est GFR (CKD-EPI)AfAm 85 (>60 ml/min/1.73 sqM) Est GFR (CKD-EPI)NonAf 74 (>60 ml/min/1.73 sqM) Glucose 137 H (74-99) mg/dL Calcium 9.0 (8.4-10.2) mg/dL Magnesium 2.0 (1.6-2.3) mg/dL Troponin I (0.000-0.034) ng/mL NT-Pro-B Natriuret Pep pg/mL 03/15/23 03/15/23 Range/Units 15:03 15:03 WBC (3.8-10.6) k/uL RBC (3.80-5.40) m/uL Hgb (11.4-16.0) gm/dL Hct (34.0-46.0) % MCV (80.0-100.0) fL MCH (25.0-35.0) pg MCHC (31.0-37.0) g/dL RDW (11.5-15.5) % Plt Count (150-450) k/uL MPV Neutrophils % % Lymphocytes % % Monocytes % % Eosinophils % % Basophils % % Neutrophils # (1.3-7.7) k/uL Lymphocytes # (1.0-4.8) k/uL Monocytes # (0-1.0) k/uL Eosinophils # (0-0.7) k/uL Basophils # (0-0.2) k/uL Hypochromasia Poikilocytosis PT (9.0-12.0) sec INR (<1.2) APTT (22.0-30.0) sec Sodium (137-145) mmol/L Potassium (3.5-5.1) mmol/L Chloride (98-107) mmol/L Carbon Dioxide (22-30) mmol/L Anion Gap mmol/L BUN (7-17) mg/dL Creatinine (0.52-1.04) mg/dL Est GFR (CKD-EPI)AfAm (>60 ml/min/1.73 sqM) Est GFR (CKD-EPI)NonAf (>60 ml/min/1.73 sqM) Glucose (74-99) mg/dL Calcium (8.4-10.2) mg/dL Magnesium (1.6-2.3) mg/dL Troponin I 0.293 H* (0.000-0.034) ng/mL NT-Pro-B Natriuret Pep 2580 pg/mL Disposition Clinical Impression: Congestive heart failure Disposition: ADMITTED IP TO THIS HOSP Condition: Fair Referrals: Magnus Pearson MD [Primary Care Provider] - 1-2 days Decision Time: 15:58
[2023-03-15 15:20] LABS: Basophils % (A) 0 %; Eosinophils # (A) 0.4 k/uL (0-0.7); Eosinophils % (A) 3 %; HCT 27.6 % (34.0-46.0); HGB 8.7 gm/dL (11.4-16.0); Hypochromasia Moderate; Lymphocytes # (A) 1.8 k/uL (1.0-4.8); Lymphocytes % (A) 14 %; MCH 28.7 pg (25.0-35.0); MCHC 31.6 g/dL (31.0-37.0); MCV 90.9 fL (80.0-100.0); Monocytes # (A) 0.7 k/uL (0-1.0); Monocytes % (A) 5 %; Neutrophils % (A) 77 %; Platelet Count 345 k/uL (150-450); Poikilocytosis Slight; RBC 3.04 m/uL (3.80-5.40)
[2023-03-15 15:30] LABS: INR 1.1 (<1.2); Prothrombin Time 11.2 sec (9.0-12.0)
[2023-03-15 15:31] LABS: Partial Thromboplastin Time 20.2 sec (22.0-30.0)
[2023-03-15 15:36] LABS: Potassium 5.4 mmol/L (3.5-5.1)
--- NOTE | 2023-03-15 15:49 | XR ---
EXAMINATION TYPE: XR chest 2V DATE OF EXAM: 03/15/2023 COMPARISON: 03/11/2023 HISTORY: Shortness of breath TECHNIQUE: Frontal and lateral views of the chest are obtained. FINDINGS: Scattered senescent parenchymal changes noted. Hyperinflation compatible with COPD. Scattered infiltrates seen previously have improved. There is continued cardiomegaly with pulmonary v enous congestion and mild left perihilar increased density. The findings could reflect mild congestiv e failure. Infiltrates of other etiology not excluded. Mediastinal structures are stable and grossly unremarkable. No evidence for hilar prominence. Degenerative changes dorsal spine. IMPRESSION: 1. There is continued cardiomegaly with pulmonary venous congestion and mild left perihilar increased density. The findings could reflect mild congestive failure. Infiltrates of other etiology not exclu ded.
[2023-03-15] MEDS ORDERED: NALOXONE 0.4 MG/ML 1 ML VIAL IV PRN (15:54)
[2023-03-15] MEDS ORDERED: FUROSEMIDE 40 MG TAB PO STA (15:57)
[2023-03-15] MEDS: SODIUM CHLORIDE 0.9% 1,000 ML IV SCH (17:05)
[2023-03-15 22:07] LABS: Glucose,Whole Blood 137 mg/dL (70-110)
[2023-03-16] MEDS ORDERED: ACETAMINOPHEN TAB 500 MG TAB PO PRN (05:56)
[2023-03-16] MEDS ORDERED: ALBUTEROL NEBULIZED 2.5 MG/3 ML INHALATION PRN (05:56)
[2023-03-16] MEDS ORDERED: ARTIFICIAL TEARS-HYPROMELLOSE DROPS 15 ML BTL BOTH EYES PRN (05:56)
[2023-03-16] MEDS ORDERED: SENNOSIDES-DOCUSATE SODIUM 1 EACH TAB PO PRN (05:56)
[2023-03-16] MEDS ORDERED: DEXTROSE 50% SYRINGE 50 ML IVP PRN ×2 (05:59)
[2023-03-16 06:11] LABS: Glucose,Whole Blood 138 mg/dL (70-110)
[2023-03-16] MEDS: INSULIN ASPART (NovoLOG) 100 UNIT/ML VIAL SQ SCH ×4 (06:24→20:26)
[2023-03-16] MEDS: PANTOPRAZOLE 40 MG TABLET PO SCH (06:33)
[2023-03-16] MEDS: SPIRONOLACTONE 25 MG TAB PO SCH (08:32)
[2023-03-16] MEDS: ASPIRIN 325 MG TAB PO SCH (08:32)
[2023-03-16] MEDS: ATORVASTATIN 10 MG TAB PO SCH (08:32)
[2023-03-16] MEDS: predniSONE 10 MG TAB PO SCH (08:32)
[2023-03-16] MEDS: ASCORBIC ACID 500 MG TAB PO SCH (08:33)
[2023-03-16] MEDS: MULTIVITAMINS, THERA 1 EACH TAB PO SCH (08:33)
[2023-03-16] MEDS ORDERED: CLOPIDOGREL 75 MG TAB PO SCH (09:00)
[2023-03-16] MEDS ORDERED: FUROSEMIDE 20 MG TAB PO SCH (09:00)
[2023-03-16 11:26] LABS: Calcium 9.6 mg/dL (8.4-10.2); Potassium 4.2 mmol/L (3.5-5.1)
[2023-03-16 11:49] LABS: Glucose,Whole Blood 154 mg/dL (70-110)
[2023-03-16] MEDS: METOPROLOL TARTRATE 50 MG TAB PO SCH ×2 (12:47→20:44)
--- NOTE | 2023-03-16 13:20 | US ---
EXAMINATION TYPE: US venous doppler duplex LE BI DATE OF EXAM: 03/16/2023 11:04 AM COMPARISON: NONE CLINICAL INDICATION: Female, 77 years old with history of r/o DVT, LLE edema and pain; recent left gs v stripping for CABG, swelling, no h/o dvt SIDE PERFORMED: Bilateral TECHNIQUE: The lower extremity deep venous system is examined utilizing real time linear array sonog molly with graded compression, doppler sonography and color-flow sonography. VESSELS IMAGED: Common Femoral Vein Deep Femoral Vein Greater Saphenous Vein * Femoral Vein Popliteal Vein Small Saphenous Vein * Proximal Calf Veins (* superficial vessels) Right Leg: Negative for DVT Left Leg: Internal echoes, non compressible, seen from PTV extending up through CFV Grayscale, color doppler, spectral doppler imaging performed of the deep veins of the bilateral lower extremities. There is normal flow, compressibility, vascular waveforms in the right lower extremity . Hyperechoic material expands the lumen with absent color flow and noncompressibility in the left lo wer extremity. IMPRESSION: Long segment acute DVT in the left lower extremity. A [place] level critical message alert has been initiated for Kristopher Melendrez MD via the [facility] on 03/16/2023 1:17 PM. This message alert has been sent to Kristopher claros MD via the preferences provided by the clinician for the receipt of Radiology Critical Finding s. Message ID [id number].
--- NOTE | 2023-03-16 13:58 | P.CNPUL ---
History of Present Illness Consult date: 03/16/23 Requesting physician: Kristopher Melendrez Reason for consult: dyspnea Chief complaint: Shortness of breath History of present illness: This is a very pleasant 77-year-old female patient with a known history of moderate persistent chronic bronchial asthma, coronary artery disease, diabetes mellitus, hyperlipidemia, former smoker. She was recently found to have significant coronary artery disease as well as moderate to severe mitral regurgitation. She had undergone coronary artery bypass grafting 2 with a BRITO to the LAD, reverse saphenous vein graft to the first obtuse marginal artery and the mitral valve repair in 03/02/2023. She did have extended time on the mechanical ventilator due to her underlying asthma. She subsequently recovered and was discharged home on 03/11/2023. She was recommended subacute versus inpatient rehab however declined and preferred to go home. She came back to the emergency room yesterday 03/15/2023 with complaints of increasing shortness of breath. Chest x-ray revealed continued cardiomegaly with pulmonary venous congestion and mild left perihilar density. Most likely reflecting mild congestive heart failure. EKG revealed sinus rhythm. White count 13.0. Hemoglobin 8.7. Platelets 345. INR 1.1. Sodium 140. Potassium 4.2. Chloride 104. Bicarb 28. BUN 18. Creatinine 0.96. Glucose 136. ProBNP 2580. Troponin 0.293. Doppler of the lower extremities today revealed a long segment acute DVT of the left lower extremity. She's been initiated on Eliquis. She is seen today in consultation on the selective care unit. Currently sitting up at the bedside. Awake and alert in no acute distress. Maintaining good O2 saturations in the mid to upper 90s on room air. Afebrile. Hemodynamically stable. She is continued on diuretics, prednisone, albuterol. Review of Systems REVIEW OF SYSTEMS: CONSTITUTIONAL: Denies any recent significant weight loss or weight gain. EYES: Denies change in vision. EARS, NOSE, MOUTH, THROAT: Denies headaches, denies sore throat. CARDIOVASCULAR: Denies chest pain, palpitations or syncopal episodes. RESPIRATORY: Positive for shortness of breath, no cough, congestion or hemo ptysis. GASTROINTESTINAL: Denies change in appetite, denies abdominal pain GENITOURINARY: Denies hematuria, denies infections. MUSKULOSKELETAL: Denies pain, denies swelling. INTEGUMENTARY: Denies rash, denies eczema. NEUROLOGICAL: Denies recent memory loss, no recent seizure activity. PSYCHIATRIC: Denies anxiety, denies depression. HEMATOLOGIC/LYMPHATIC: Denies anemia, denies enlarged lymph nodes. Past Medical History Past Medical History: Asthma, Coronary Artery Disease (CAD), Diabetes Mellitus, GERD/Reflux, Hyperlipidemia, Osteoarthritis (OA) Additional Past Medical History / Comment(s): cardiomyopathy, elevated heart rate, overactive bladder, glaucoma, hx elevated sed rate,lelo knee pain-arthritis and elmore cyst, covid in 09/2022 History of Any Multi-Drug Resistant Organisms: None Reported Past Surgical History: Appendectomy, Section, Hysterectomy, Orthopedic Surgery Additional Past Surgical History / Comment(s): 3 left breast biopsies, 3 needle loc on right breast- pt states all benign. lelo rotator cuff repair, lelo. hammer toe and bunionectomy, trigger finger release lelo ring fingers, meniscus repair lelo knees, carpal tunnel lelo, rt thumb fusion, lt ankle surgery, D&C, bilateral cataract surgery and laser surgery, COLONOSCOPY , EGD WITH BIOPSY Past Anesthesia/Blood Transfusion Reactions: No Reported Reaction Additional Past Anesthesia/Blood Transfusion Reaction / Comment(s): slow to wake up from anesthesia. Past Psychological History: No Psychological Hx Reported Smoking Status: Former smoker Past Alcohol Use History: None Reported Additional Past Alcohol Use History / Comment(s): STARTED SMOKING AT 20, quit IN 1973 QUIT SMOKED 1-1/2 PPD Past Drug Use History: None Reported - Past Family History Mother History Unknown: Yes Family Medical History: Congestive Heart Failure (CHF), CVA/TIA, Hypertension Son(s) History Unknown: Yes Family Medical History: Deep Vein Thrombosis (DVT) Additional Family Medical History / Comment(s): DVT IN LEG Father Family Medical History: Congestive Heart Failure (CHF), Hypertension Medications and Allergies Home Medications Medication Instructions Recorded Confirmed Type Rosuvastatin Calcium [Crestor] 5 mg PO DAILY 07/16/14 03/15/23 History Solifenacin Succinate [Vesicare] 10 mg PO HS 07/16/14 03/15/23 History Latanoprost Ophth [Xalatan 0.005%] 1 drop BOTH EYES HS 08/17/17 03/15/23 History Furosemide [Lasix] 20 mg PO MOWEFR 12/16/20 03/15/23 History Carboxymethylcellulose Sodium 1 drop BOTH EYES TID PRN 11/16/22 03/15/23 History [Refresh Tears] Multivit with Calcium,Iron,Min 1 tab PO DAILY 11/16/22 03/15/23 History [Women's Multivitamin] Ascorbic Acid [Vitamin C] 500 mg PO DAILY 12/03/22 03/15/23 History Albuterol Inhaler [Ventolin Hfa 2 puff INHALATION RT-QID PRN each 01/16/23 03/15/23 Rx Inhaler] Acetaminophen [Tylenol Extra 500 mg PO Q4HR PRN #0 03/11/23 03/15/23 Rx Strength] Aspirin 325 mg PO DAILY #30 tab 03/11/23 03/15/23 Rx Clopidogrel [Plavix] 75 mg PO DAILY #30 tab 03/11/23 03/15/23 Rx Losartan [Cozaar] 50 mg PO DAILY #30 tab 03/11/23 03/15/23 Rx Pantoprazole [Protonix] 40 mg PO AC-BRKFST #30 tab 03/11/23 03/15/23 Rx Spironolactone [Aldactone] 25 mg PO DAILY #30 tab 03/11/23 03/15/23 Rx metFORMIN HCL [Glucophage] 500 mg PO BID #60 tab 03/11/23 03/15/23 Rx Metoprolol Tartrate [Lopressor] 100 mg PO BID 03/15/23 03/15/23 History Sennosides-Docusate Sodium 2 tab PO HS PRN 03/15/23 03/15/23 History [Senokot-S] predniSONE 10 mg PO DAILY 03/15/23 03/15/23 History Allergies Allergy/AdvReac Type Severity Reaction Status Date / Time budesonide Allergy Wheezing Verified 03/15/23 16:29 fluticasone Allergy Rapid Verified 03/15/23 16:29 Heart Rate, dizziness formoterol Allergy Wheezing, Verified 03/15/23 16:29 [From [facility]] Dizziness, Rapid Heart Rate, High BP glycopyrrolate Allergy Wheezing, Verified 03/15/23 16:29 [From [facility]] Dizziness, Rapid Heart Rate, High BP levalbuterol [From Xopenex] Allergy Wheezing, Verified 03/15/23 16:29 Dizziness azithromycin [From Zithromax] AdvReac intercts Verified 03/15/23 16:29 w/Digoxin benzonatate AdvReac Gerd Verified 03/15/23 16:29 dexamethasone AdvReac Gerd Verified 03/15/23 16:29 doxycycline AdvReac Gerd Verified 03/15/23 16:29 ipratropium AdvReac Rapid Verified 03/15/23 16:29 Heart Rate pravastatin sodium AdvReac Swelling Verified 03/15/23 16:29 [From Pravachol] and pain in legs prednisone AdvReac causes Verified 03/15/23 16:29 thrush ranitidine AdvReac Nausea & Verified 03/15/23 16:29 Vomiting & Diarrhea Sulfa (Sulfonamide AdvReac Rash/Hives Verified 03/15/23 16:29 Antibiotics) Physical Exam Vitals: Vital Signs Temp Pulse Pulse Pulse Resp BP BP 03/16/23 08:30 98.8 F 99 18 125/78 03/16/23 03:25 97.8 F 100 16 127/78 03/16/23 00:00 98.2 F 105 H 18 120/77 03/15/23 22:00 98.3 F 106 H 16 133/85 03/15/23 20:02 98 20 150/78 03/15/23 18:00 99 18 133/71 03/15/23 17:00 104 H 22 135/79 03/15/23 16:00 98 20 121/75 03/15/23 15:00 102 H 16 129/79 03/15/23 14:20 99.1 F 95 18 130/66 Pulse Ox 03/16/23 08:30 97 03/16/23 03:25 95 03/16/23 00:00 97 03/15/23 22:00 99 03/15/23 20:02 99 03/15/23 18:00 99 03/15/23 17:00 99 03/15/23 16:00 98 03/15/23 15:00 100 03/15/23 14:20 100 Intake and Output 03/15/23 03/16/23 03/16/23 22:59 06:59 14:59 Other: Voiding Method Bedside Commode Bedside Commode Bedside Commode # Voids 1 3 # Bowel Movements 1 Weight 77.111 kg 78.4 kg GENERAL EXAM: Alert, pleasant 77-year-old female, on room air, comfortable in no apparent distress. HEAD: Normocephalic. EYES: Normal reaction of pupils, equal size. NOSE: Clear with pink turbinates. THROAT: No erythema or exudates. NECK: No masses, no JVD. CHEST: No chest wall deformity. Sternum stable. Incision clean dry well approximated. LUNGS: Equal air entry with faint crackles in the posterior bases. CVS: S1 and S2 normal with no audible murmur, regular rhythm. ABDOMEN: No hepatosplenomegaly, normal bowel sounds, no guarding or rigidity. SPINE: No scoliosis or deformity SKIN: No rashes CENTRAL NERVOUS SYSTEM: No focal deficits, tone is normal in all 4 extremities. EXTREMITIES: There is 1+ peripheral edema. No clubbing, no cyanosis. Peripheral pulses are intact. Results - Laboratory Findings CBC and BMP: 03/15/23 15:03 03/16/23 10:32 PT/INR, D-dimer PT 11.2 sec (9.0-12.0) 03/15/23 15:03 INR 1.1 (<1.2) 03/15/23 15:03 Abnormal lab findings: Abnormal Labs 03/15/23 03/15/23 03/15/23 15:03 15:03 15:03 WBC 13.0 H RBC 3.04 L Hgb 8.7 L Hct 27.6 L Neutrophils # 10.0 H APTT 20.2 L Potassium 5.4 H BUN Glucose 137 H POC Glucose (mg/dL) Troponin I 03/15/23 03/15/23 03/16/23 15:03 22:03 06:09 WBC RBC Hgb Hct Neutrophils # APTT Potassium BUN Glucose POC Glucose (mg/dL) 137 H 138 H Troponin I 0.293 H* 03/16/23 03/16/23 10:32 11:45 WBC RBC Hgb Hct Neutrophils # APTT Potassium BUN 18 H Glucose 136 H POC Glucose (mg/dL) 154 H Troponin I - Diagnostic Findings Chest x-ray: image reviewed Assessment and Plan Assessment: Dyspnea secondary to an acute exacerbation of chronic systolic congestive heart failure in a patient with previous diffuse global hypokinesia and impaired left ventricular systolic function with an ejection fraction of 35% Acute left lower extremity DVT, initiated on Eliquis Recent discharge, 03/11/2023, following coronary artery bypass grafting and mitral valve repair on 03/02/2023 History of chronic moderate persistent bronchial asthma, currently inactive and stable History of chronic obstructive pulmonary disease with an FEV1 value of 42% of predicted Former smoker Diabetes mellitus Hyperlipidemia Acute on chronic anemia, current hemoglobin 8.7 Plan: The patient was seen and evaluated Chest x-ray, labs and medications reviewed Venous Doppler positive for acute left lower extremity DVT Initiated on Eliquis Stable and on room air Continue her home pulmonary medications Cleared for discharge and to keep her appointment in our office as scheduled I have personally seen and examined the patient, performed the documentation and the assessment and plan as written. Number of minutes spent on the visit: 20.
[2023-03-16] MEDS: metFORMIN 500 MG TAB PO SCH ×2 (14:08→20:44)
--- NOTE | 2023-03-16 15:28 | P.GSCN ---
History of Present Illness Consult date: 03/16/23 Reason for Consult: This is a 77-year-old female patient who follows with Dr. Magnus Pearson on an outpatient basis for primary care, with Dr. Neo Negrete for her cardiology care and let Dr. Swift for her pulmonary care. She has a past medical history significant for coronary artery disease with left main disease and underwent a coronary artery bypass grafting surgery 2 vessels on 03/02/2023, moderate to severe central mitral valve regurgitation, status post mitral valve repair on 03/02/2023, cardiomyopathy with chronic systolic heart failure with a decreased systolic function, ejection fraction 35% on MARY 02/28/2023, asthma with multiple exacerbations, hyperlipidemia, severe restrictive lung disease with a preoperative FEV1 42% predicted value, diabetes mellitus with a hemoglobin A1c of 6.9%, previous tobacco dependence, GERD, osteoarthritis, and COVID-19 infe ction in September 2022. The patient presented to the emergency department here at [facility] via EMS yesterday 03/15/2023 with acute onset episodes of shortness of breath which would last anywhere from 5-30 seconds. The patient states she had about 4-5 episodes of shortness of breath which started around 5 AM yesterday morning. She denies any associated chest pain, palpitations, presyncope, syncope, fever, chills, nausea, vomiting, headache, or productive cough. The patient did complain of some swelling to her left lower extremity where she had the endovascular vein harvest. 12-lead EKG was completed which showed sinus rhythm, nonspecific T-wave abnormality with a heart rate of 93 BPM. Initial laboratory results showed a WBC count of 13.0, hemoglobin 8.7, hematocrit 27.6, platelets 345, sodium 137, potassium 5.4, chloride 106, CO2 22, BUN 15, creatinine 0.79, calcium 9.0, magnesium 2.0, troponin 0.293 and proBNP 2580. A chest x-ray was also completed which showed continued cardiomegaly with pulmonary venous congestion and mild left perihilar increased density. Due to the swelling in her left leg a ultrasound venous Doppler duplex was given completed of her bilateral lower extremities which demonstrated negative for DVT to her right leg, although showed internal echoes, noncompressible, seen from PTV extending up through the CFV, showing a long segment acute DVT in the left lower extremity. Subsequently, due to the patient's episodes of shortness of breath she was admitted to the hospital for a 24-hour observation. Due to the patient's recent open heart surgery cardiothoracic surgery service was consulted for further evaluation and treatment recommendations. Review of Systems A 14 point review of systems was completed and was negative except as mentioned in the HPI. Past Medical History Past Medical History: Asthma, Coronary Artery Disease (CAD), Heart Failure, Diabetes Mellitus, GERD/Reflux, Hyperlipidemia, Osteoarthritis (OA) Additional Past Medical History / Comment(s): cardiomyopathy, elevated heart rate, overactive bladder, glaucoma, hx elevated sed rate,lelo knee pain-arthritis and elmore cyst, covid in 09/2022 History of Any Multi-Drug Resistant Organisms: None Reported Past Surgical History: Appendectomy, Section, Coronary Bypass/CABG, Hysterectomy, Orthopedic Surgery Additional Past Surgical History / Comment(s): 3 left breast biopsies, 3 needle loc on right breast- pt states all benign. lelo rotator cuff repair, lelo. hammer toe and bunionectomy, trigger finger release lelo ring fingers, meniscus repair lelo knees, carpal tunnel lelo, rt thumb fusion, lt ankle surgery, D&C, bilateral cataract surgery and laser surgery, COLONOSCOPY , EGD WITH BIOPSY, 2 vessel coronary artery bypass grafting surgery and mitral valve repair surgery on 03/02/2023 Past Anesthesia/Blood Transfusion Reactions: No Reported Reaction Additional Past Anesthesia/Blood Transfusion Reaction / Comm: slow to wake up from anesthesia. Past Psychological History: No Psychological Hx Reported Smoking Status: Former smoker Past Alcohol Use History: None Reported Additional Past Alcohol Use History / Comment(s): STARTED SMOKING AT 20, quit IN 1973 QUIT SMOKED 1-1/2 PPD Past Drug Use History: None Reported - Past Family History Mother History Unknown: Yes Family Medical History: Congestive Heart Failure (CHF), CVA/TIA, Hypertension Son(s) History Unknown: Yes Family Medical History: Deep Vein Thrombosis (DVT) Additional Family Medical History / Comment(s): DVT IN LEG Father Family Medical History: Congestive Heart Failure (CHF), Hypertension Medications and Allergies Home Medications Medication Instructions Recorded Confirmed Type Rosuvastatin Calcium [Crestor] 5 mg PO DAILY 07/16/14 03/15/23 History Solifenacin Succinate [Vesicare] 10 mg PO HS 07/16/14 03/15/23 History Latanoprost Ophth [Xalatan 0.005%] 1 drop BOTH EYES HS 08/17/17 03/15/23 History Furosemide [Lasix] 20 mg PO MOWEFR 12/16/20 03/15/23 History Carboxymethylcellulose Sodium 1 drop BOTH EYES TID PRN 11/16/22 03/15/23 History [Refresh Tears] Multivit with Calcium,Iron,Min 1 tab PO DAILY 11/16/22 03/15/23 History [Women's Multivitamin] Ascorbic Acid [Vitamin C] 500 mg PO DAILY 12/03/22 03/15/23 History Albuterol Inhaler [Ventolin Hfa 2 puff INHALATION RT-QID PRN each 01/16/23 03/15/23 Rx Inhaler] Acetaminophen [Tylenol Extra 500 mg PO Q4HR PRN #0 03/11/23 03/15/23 Rx Strength] Aspirin 325 mg PO DAILY #30 tab 03/11/23 03/15/23 Rx Losartan [Cozaar] 50 mg PO DAILY #30 tab 03/11/23 03/15/23 Rx Pantoprazole [Protonix] 40 mg PO AC-BRKFST #30 tab 03/11/23 03/15/23 Rx Spironolactone [Aldactone] 25 mg PO DAILY #30 tab 03/11/23 03/15/23 Rx metFORMIN HCL [Glucophage] 500 mg PO BID #60 tab 03/11/23 03/15/23 Rx Metoprolol Tartrate [Lopressor] 100 mg PO BID 03/15/23 03/15/23 History Sennosides-Docusate Sodium 2 tab PO HS PRN 03/15/23 03/15/23 History [Senokot-S] predniSONE 10 mg PO DAILY 03/15/23 03/15/23 History Apixaban [Eliquis] 5 mg PO BID #60 tab 03/16/23 Rx Allergies Allergy/AdvReac Type Severity Reaction Status Date / Time budesonide Allergy Wheezing Verified 03/15/23 16:29 fluticasone Allergy Rapid Verified 03/15/23 16:29 Heart Rate, dizziness formoterol Allergy Wheezing, Verified 03/15/23 16:29 [facility] Dizziness, Rapid Heart Rate, High BP glycopyrrolate Allergy Wheezing, Verified 03/15/23 16:29 [From [employer]] Dizziness, Rapid Heart Rate, High BP levalbuterol [From Xopenex] Allergy Wheezing, Verified 03/15/23 16:29 Dizziness azithromycin [From Zithromax] AdvReac intercts Verified 03/15/23 16:29 w/Digoxin benzonatate AdvReac Gerd Verified 03/15/23 16:29 dexamethasone AdvReac Gerd Verified 03/15/23 16:29 doxycycline AdvReac Gerd Verified 03/15/23 16:29 ipratropium AdvReac Rapid Verified 03/15/23 16:29 Heart Rate pravastatin sodium AdvReac Swelling Verified 03/15/23 16:29 [From Pravachol] and pain in legs prednisone AdvReac causes Verified 03/15/23 16:29 thrush ranitidine AdvReac Nausea & Verified 03/15/23 16:29 Vomiting & Diarrhea Sulfa (Sulfonamide AdvReac Rash/Hives Verified 03/15/23 16:29 Antibiotics) Surgical - Exam Vital Signs Temp Pulse Resp BP Pulse Ox 99.1 F 95 18 130/66 100 03/15/23 14:20 03/15/23 14:20 03/15/23 14:20 03/15/23 14:20 03/15/23 14:20 - General well developed, well nourished, no distress, no pain, chronically ill, obese - Eyes PERRL, normal ocular movement, no pale, no icteric - ENT Edentulous normal pinna, normal nares, normal mucosa, no hearing loss, no congestion - Neck Neck is supple, no lymphadenopathy. no masses, no bruits, trachea midline, no venous distension - Respiratory Lung sounds essentially clear throughout, diminished to her bilateral bases. Respirations are symmetrical and nonlabored. No wheezes, rhonchi or crackles. - Cardiovascular Regular rhythm and rate. S1 and S2 present, negative for S3, gallop or murmur. +1 edema to her left lower extremity. - Abdomen Abdomen is soft, nontender and nondistended. Active bowel sounds present all 4, quadrants. No guarding or rigidity. No organomegaly appreciated. - Genitourinary Deferred - Rectum Deferred - Integumentary Skin is warm and dry. No clubbing or cyanosis is present. Midline sternal incision is clean, dry and approximated. No redness or drainage is present. Left lower extremity EVH site is clean, dry and approximated. No drainage or redness is present. no rash, no growths, no abnormal pigmentation - Neurologic No focal deficits. normal coordination, normal sensation - Musculoskeletal Moves all 4 extremities with equal strength bilaterally. - Psychiatric oriented to time, oriented to person, oriented to place, speech is normal, memory intact Results - Labs 03/15/23 15:03 03/16/23 10:32 Abnormal Lab Results - Last 24 Hours (Table) 03/15/23 03/15/23 03/15/23 Range/Units 15:03 15:03 15:03 WBC 13.0 H (3.8-10.6) k/uL RBC 3.04 L (3.80-5.40) m/uL Hgb 8.7 L (11.4-16.0) gm/dL Hct 27.6 L (34.0-46.0) % Neutrophils # 10.0 H (1.3-7.7) k/uL APTT 20.2 L (22.0-30.0) sec Potassium 5.4 H (3.5-5.1) mmol/L BUN (7-17) mg/dL Glucose 137 H (74-99) mg/dL POC Glucose (mg/dL) (70-110) mg/dL Troponin I (0.000-0.034) ng/mL 03/15/23 03/15/23 03/16/23 Range/Units 15:03 22:03 06:09 WBC (3.8-10.6) k/uL RBC (3.80-5.40) m/uL Hgb (11.4-16.0) gm/dL Hct (34.0-46.0) % Neutrophils # (1.3-7.7) k/uL APTT (22.0-30.0) sec Potassium (3.5-5.1) mmol/L BUN (7-17) mg/dL Glucose (74-99) mg/dL POC Glucose (mg/dL) 137 H 138 H (70-110) mg/dL Troponin I 0.293 H* (0.000-0.034) ng/mL 03/16/23 03/16/23 Range/Units 10:32 11:45 WBC (3.8-10.6) k/uL RBC (3.80-5.40) m/uL Hgb (11.4-16.0) gm/dL Hct (34.0-46.0) % Neutrophils # (1.3-7.7) k/uL APTT (22.0-30.0) sec Potassium (3.5-5.1) mmol/L BUN 18 H (7-17) mg/dL Glucose 136 H (74-99) mg/dL POC Glucose (mg/dL) 154 H (70-110) mg/dL Troponin I (0.000-0.034) ng/mL Diabetes panel 03/15/23 03/16/23 Range/Units 15:03 10:32 Sodium 137 140 (137-145) mmol/L Potassium 5.4 H 4.2 (3.5-5.1) mmol/L Chloride 106 104 (98-107) mmol/L Carbon Dioxide 22 28 (22-30) mmol/L BUN 15 18 H (7-17) mg/dL Creatinine 0.79 0.96 (0.52-1.04) mg/dL Glucose 137 H 136 H (74-99) mg/dL Calcium 9.0 9.6 (8.4-10.2) mg/dL Calcium panel 03/15/23 03/16/23 Range/Units 15:03 10:32 Calcium 9.0 9.6 (8.4-10.2) mg/dL Pituitary panel 03/15/23 03/16/23 Range/Units 15:03 10:32 Sodium 137 140 (137-145) mmol/L Potassium 5.4 H 4.2 (3.5-5.1) mmol/L Chloride 106 104 (98-107) mmol/L Carbon Dioxide 22 28 (22-30) mmol/L BUN 15 18 H (7-17) mg/dL Creatinine 0.79 0.96 (0.52-1.04) mg/dL Glucose 137 H 136 H (74-99) mg/dL Calcium 9.0 9.6 (8.4-10.2) mg/dL Adrenal panel 03/15/23 03/16/23 Range/Units 15:03 10:32 Sodium 137 140 (137-145) mmol/L Potassium 5.4 H 4.2 (3.5-5.1) mmol/L Chloride 106 104 (98-107) mmol/L Carbon Dioxide 22 28 (22-30) mmol/L BUN 15 18 H (7-17) mg/dL Creatinine 0.79 0.96 (0.52-1.04) mg/dL Glucose 137 H 136 H (74-99) mg/dL Calcium 9.0 9.6 (8.4-10.2) mg/dL - Imaging Chest x-ray: report reviewed, image reviewed Additional studies: Ultrasound duplex Doppler of her bilateral lower extremities report reviewed. Assessment and Plan Assessment: Coronary artery disease with left main disease, status post 2 vessel coronary artery bypass grafting surgery on 03/02/2023 Moderate to severe central mitral valve regurgitation, status post mitral valve repair on 03/02/2023 Cardiomyopathy/chronic systolic heart failure with decreased systolic function, ejection fraction 35% on MARY 02/28/2023 Asthma with multiple exacerbations, with severe restrictive lung disease, preoperative FEV1 42% of predicted value Episodes of shortness of breath, likely secondary to above DVT left lower extremity Diabetes mellitus, most recent hemoglobin A1c 6.9% Previous tobacco dependence GERD Osteoarthritis Covid 19 infection September 2022 Acute on chronic anemia, current hemoglobin 8.7 Plan: The patient was seen and examined at her bedside on the cardiac stepdown unit. Her chart and diagnostics were reviewed. Her case was discussed in detail with Dr. Jimenez Camacho from cardiothoracic surgery. Due to the positive left leg DVT she will be started on Eliquis 5 mg by mouth twice a day. Discontinue Plavix and continue aspirin 81 mg by mouth daily. Room air oxygen saturations are 98%. Continue to follow post open-heart discharge instructions as discussed. Medical management and other comorbidities per primary care service. Per the cardiothoracic surgery standpoint the patient can be discharged home when the patient has had her transthoracic 2-D echo completed. Thank you for this consult and we look forward to working with you in the care of this patient. I have personally seen and examined the patient, performed the documentation and the assessment and plan as written. 30 minutes spent on the visit . Collins COVARRUBIAS
[2023-03-16] MEDS: ALBUTEROL HFA INHALER INHALATION PRN ×2 (16:30→22:00)
[2023-03-16 16:35] LABS: Glucose,Whole Blood 217 mg/dL (70-110)
--- NOTE | 2023-03-16 20:05 | P.CRDCN ---
History of Present Illness Consult date: 03/16/23 Consult reason: shortness of breath History of present illness: History of present illness: Patient is a pleasant 77-year-old female with significant past medical history of CAD status post 2 vessel CABG on 03/02/23 with atrial appendage ligation and mitral valve repair, inappropriate sinus tachycardia, cardiomyopathy, diabetes, hyperlipidemia who presented to the emergency department with complaints of shortness of breath. She reports that she had mild shortness of breath for the past few days then on Thursday she woke up and when she went to use the restroom she had significant shortness of breath, this progressively got worse throughout the morning. Denies any associated this pain or diaphoresis. She reports having intermittent hallucinations and is concerned that it is the losartan causing this. She has left lower extremity swelling and reports increased pain and tenderness of the inner left thigh for the past 3 days. She does feel a little better this morning but reports that her breathing is not at baseline. Labs reviewed: Troponin 0.293, BNP 2580, WBC 13.0, hemoglobin 8.7, platelets 345, creatinine 0.79, A1c 6.9, LDL is 51. Chest x-ray shows cardiomegaly with pulmonary venous congestion mild left perihilar increased density. Preoperative echo 02/27/23 with an ejection fraction of 30. Carotid ultrasound shows mild plaquing bilaterally. REVIEW OF SYSTEMS: No fever or chills. No cough or expectoration. No diaphor esis. Patient denies headache, dizziness, blurred vision, double vision. Patient denies any stomach discomfort. No nausea, vomiting. No hematochezia. No hematemesis. Denies any black stools or blood in his stools. Denies dysuria or hematuria. No muscle weakness or numbness. No chest pain or pressure. Reports mild shortness of breath, hallucinations. PHYSICAL EXAMINATION: This is a 77-year-old female in no apparent distress at the time of my examination. HEENT: Head is atraumatic, normocephalic. Pupils are equal, round. Sclerae anicteric. Conjunctivae are clear. Mucous membranes of the mouth are moist. Neck is supple. There is no jugular venous distention. No carotid bruit is heard. CHEST EXAMINATION: Lungs are clear to auscultation. No chest wall tenderness is noted on palpation or with deep breathing. HEART EXAMINATION: Heart regular rate and rhythm. S1, S2 heard. No murmurs, gallops or rub. ABDOMEN: Soft, nontender. Bowel sounds are heard. EXTREMITIES: 2+ peripheral pulses, LLE peripheral edema with inner thigh firmness and tenderness. RLE trace edema. NEUROLOGIC EXAMINATION: Patient is awake, alert and oriented x3. IMPRESSION AND PLAN: CAD status post CABG 2, left atrial appendage ligation, mitral valve repair on 03/02/23 Hypertension Hyperlipidemia Diabetes History of inappropriate sinus tachycardia Cardiomyopathy, EF 30% Shortness of breath Elevated troponin Leukocytosis Anemia PLAN: We will check venous Doppler ultrasound, which was positive for long segm ent acute DVT in the LLE, she was started on Eliquis. We will repeat ECHO to evaluate heart function and structure. Start Lasix 40mg IV daily. We will follow up. I am dictating on behalf of Dr. Obi Giraldo's history/physical and assessment/plan. Past Medical History Past Medical History: Asthma, Coronary Artery Disease (CAD), Diabetes Mellitus, GERD/Reflux, Hyperlipidemia, Osteoarthritis (OA) Additional Past Medical History / Comment(s): cardiomyopathy, elevated heart rate, overactive bladder, glaucoma, hx elevated sed rate,lelo knee pain-arthritis and elmore cyst, covid in 09/2022 History of Any Multi-Drug Resistant Organisms: None Reported Past Surgical History: Appendectomy, Section, Hysterectomy, Orthopedic Surgery Additional Past Surgical History / Comment(s): 3 left breast biopsies, 3 needle loc on right breast- pt states all benign. lelo rotator cuff repair, lelo. hammer toe and bunionectomy, trigger finger release lelo ring fingers, meniscus repair lelo knees, carpal tunnel lelo, rt thumb fusion, lt ankle surgery, D&C, bilateral cataract surgery and laser surgery, COLONOSCOPY , EGD WITH BIOPSY Past Anesthesia/Blood Transfusion Reactions: No Reported Reaction Additional Past Anesthesia/Blood Transfusion Reaction / Comment(s): slow to wake up from anesthesia. Past Psychological History: No Psychological Hx Reported Smoking Status: Former smoker Past Alcohol Use History: None Reported Additional Past Alcohol Use History / Comment(s): STARTED SMOKING AT 20, quit IN 1973 QUIT SMOKED 1-1/2 PPD Past Drug Use History: None Reported - Past Family History Mother History Unknown: Yes Family Medical History: Congestive Heart Failure (CHF), CVA/TIA, Hypertension Son(s) History Unknown: Yes Family Medical History: Deep Vein Thrombosis (DVT) Additional Family Medical History / Comment(s): DVT IN LEG Father Family Medical History: Congestive Heart Failure (CHF), Hypertension Medications and Allergies Home Medications Medication Instructions Recorded Confirmed Type Rosuvastatin Calcium [Crestor] 5 mg PO DAILY 07/16/14 03/15/23 History Solifenacin Succinate [Vesicare] 10 mg PO HS 07/16/14 03/15/23 History Latanoprost Ophth [Xalatan 0.005%] 1 drop BOTH EYES HS 08/17/17 03/15/23 History Furosemide [Lasix] 20 mg PO MOWEFR 12/16/20 03/15/23 History Carboxymethylcellulose Sodium 1 drop BOTH EYES TID PRN 11/16/22 03/15/23 History [Refresh Tears] Multivit with Calcium,Iron,Min 1 tab PO DAILY 11/16/22 03/15/23 History [Women's Multivitamin] Ascorbic Acid [Vitamin C] 500 mg PO DAILY 12/03/22 03/15/23 History Albuterol Inhaler [Ventolin Hfa 2 puff INHALATION RT-QID PRN each 01/16/23 03/15/23 Rx Inhaler] Acetaminophen [Tylenol Extra 500 mg PO Q4HR PRN #0 03/11/23 03/15/23 Rx Strength] Aspirin 325 mg PO DAILY #30 tab 03/11/23 03/15/23 Rx Losartan [Cozaar] 50 mg PO DAILY #30 tab 03/11/23 03/15/23 Rx Pantoprazole [Protonix] 40 mg PO AC-BRKFST #30 tab 03/11/23 03/15/23 Rx Spironolactone [Aldactone] 25 mg PO DAILY #30 tab 03/11/23 03/15/23 Rx metFORMIN HCL [Glucophage] 500 mg PO BID #60 tab 03/11/23 03/15/23 Rx Metoprolol Tartrate [Lopressor] 100 mg PO BID 03/15/23 03/15/23 History Sennosides-Docusate Sodium 2 tab PO HS PRN 03/15/23 03/15/23 History [Senokot-S] predniSONE 10 mg PO DAILY 03/15/23 03/15/23 History Apixaban [Eliquis] 5 mg PO BID #60 tab 03/16/23 Rx Allergies Allergy/AdvReac Type Severity Reaction Status Date / Time budesonide Allergy Wheezing Verified 03/15/23 16:29 fluticasone Allergy Rapid Verified 03/15/23 16:29 Heart Rate, dizziness formoterol Allergy Wheezing, Verified 03/15/23 16:29 [From UpDown] Dizziness, Rapid Heart Rate, High BP glycopyrrolate Allergy Wheezing, Verified 03/15/23 16:29 [From UpDown] Dizziness, Rapid Heart Rate, High BP levalbuterol [From Xopenex] Allergy Wheezing, Verified 03/15/23 16:29 Dizziness azithromycin [From Zithromax] AdvReac intercts Verified 03/15/23 16:29 w/Digoxin benzonatate AdvReac Gerd Verified 03/15/23 16:29 dexamethasone AdvReac Gerd Verified 03/15/23 16:29 doxycycline AdvReac Gerd Verified 03/15/23 16:29 ipratropium AdvReac Rapid Verified 03/15/23 16:29 Heart Rate pravastatin sodium AdvReac Swelling Verified 03/15/23 16:29 [From Pravachol] and pain in legs prednisone AdvReac causes Verified 03/15/23 16:29 thrush ranitidine AdvReac Nausea & Verified 03/15/23 16:29 Vomiting & Diarrhea Sulfa (Sulfonamide AdvReac Rash/Hives Verified 03/15/23 16:29 Antibiotics) Physical Exam Vitals: Vital Signs Temp Pulse Pulse Pulse Resp BP BP 03/16/23 08:30 98.8 F 99 18 125/78 03/16/23 03:25 97.8 F 100 16 127/78 03/16/23 00:00 98.2 F 105 H 18 120/77 03/15/23 22:00 98.3 F 106 H 16 133/85 03/15/23 20:02 98 20 150/78 03/15/23 18:00 99 18 133/71 03/15/23 17:00 104 H 22 135/79 03/15/23 16:00 98 20 121/75 03/15/23 15:00 102 H 16 129/79 03/15/23 14:20 99.1 F 95 18 130/66 Pulse Ox 03/16/23 08:30 97 03/16/23 03:25 95 03/16/23 00:00 97 03/15/23 22:00 99 03/15/23 20:02 99 03/15/23 18:00 99 03/15/23 17:00 99 03/15/23 16:00 98 03/15/23 15:00 100 03/15/23 14:20 100 Intake and Output 03/15/23 03/16/23 03/16/23 22:59 06:59 14:59 Other: Voiding Method Bedside Commode Bedside Commode Bedside Commode # Voids 1 1 # Bowel Movements 1 Weight 77.111 kg 78.4 kg Results 03/15/23 15:03 03/16/23 10:32 Cardiac Enzymes 03/15/23 Range/Units 15:03 Troponin I 0.293 H* (0.000-0.034) ng/mL Coagulation 03/15/23 Range/Units 15:03 PT 11.2 (9.0-12.0) sec APTT 20.2 L (22.0-30.0) sec CBC 03/15/23 Range/Units 15:03 WBC 13.0 H (3.8-10.6) k/uL RBC 3.04 L (3.80-5.40) m/uL Hgb 8.7 L (11.4-16.0) gm/dL Hct 27.6 L (34.0-46.0) % Plt Count 345 (150-450) k/uL Comprehensive Metabolic Panel 03/15/23 Range/Units 15:03 Sodium 137 (137-145) mmol/L Potassium 5.4 H (3.5-5.1) mmol/L Chloride 106 (98-107) mmol/L Carbon Dioxide 22 (22-30) mmol/L BUN 15 (7-17) mg/dL Creatinine 0.79 (0.52-1.04) mg/dL Glucose 137 H (74-99) mg/dL Calcium 9.0 (8.4-10.2) mg/dL Current Medications Generic Name Dose Route Start Last Admin Trade Name Freq PRN Reason Stop Dose Admin Acetaminophen 500 mg 03/16/23 05:56 Acetaminophen Tab 500 Mg Tab PO Q4HR PRN Pain Albuterol Sulfate 2.5 mg 03/16/23 05:56 Albuterol Nebulized 2.5 Mg/3 Ml INHALATION RT-QID PRN Shortness Of Breath Or Wheezing Artificial Tears 1 drops 03/16/23 05:56 Artificial Tears-Hypromellose Drops 15 Ml Btl BOTH EYES TID PRN Dry Eye(s) Ascorbic Acid 500 mg 03/16/23 09:00 03/16/23 08:33 Ascorbic Acid 500 Mg Tab PO 500 mg DAILY ANURAG Administration Aspirin 325 mg 03/16/23 09:00 03/16/23 08:32 Aspirin 325 Mg Tab PO 325 mg DAILY ANURAG Administration Atorvastatin Calcium 10 mg 03/16/23 09:00 03/16/23 08:32 Atorvastatin 10 Mg Tab PO 10 mg DAILY ANURAG Administration Clopidogrel Bisulfate 75 mg 03/16/23 09:00 03/16/23 08:33 Clopidogrel 75 Mg Tab PO 75 mg DAILY ANURAG Administration Dextrose/Water 25 ml 03/16/23 05:59 Dextrose 50% Syringe 50 Ml IVP PER PROTOCOL PRN Hypoglycemia Protocol Dextrose/Water 50 ml 03/16/23 05:59 Dextrose 50% Syringe 50 Ml IVP PER PROTOCOL PRN Hypoglycemia Protocol Furosemide 20 mg 03/16/23 09:00 03/16/23 08:33 Furosemide 20 Mg Tab PO 20 mg MOWEFR ANURAG Administration Sodium Chloride 1,000 mls @ 20 mls/hr 03/15/23 16:00 03/15/23 17:05 Saline 0.9% IV Not Given .Q24H ANURAG Insulin Aspart 0 unit 03/16/23 07:30 03/16/23 06:24 Insulin Aspart (Novolog) 100 Unit/Ml Vial SQ Not Given ACHS [facility] Protocol Latanoprost 1 drops 03/16/23 21:00 Latanoprost 0.005% Ophth Drops 2.5 Ml Btl BOTH EYES HS ANURAG Metformin HCl 500 mg 03/16/23 09:00 Metformin 500 Mg Tab PO BID ANURAG Metoprolol Tartrate 100 mg 03/16/23 09:00 Metoprolol Tartrate 50 Mg Tab PO BID [facility] Multivitamins 1 each 03/16/23 09:00 03/16/23 08:33 Multivitamins, Thera 1 Each Tab PO 1 each DAILY ANURAG Administration Naloxone HCl 0.2 mg 03/15/23 15:54 Naloxone 0.4 Mg/Ml 1 Ml Vial IV Q2M PRN Opioid Reversal Pantoprazole Sodium 40 mg 03/16/23 07:30 03/16/23 06:33 Pantoprazole 40 Mg Tablet PO 40 mg AC-BRKFST ANURAG Administration Prednisone 10 mg 03/16/23 09:00 03/16/23 08:32 Prednisone 10 Mg Tab PO 10 mg DAILY ANURAG Administration Senna/Docusate Sodium 2 each 03/16/23 05:56 Sennosides-Docusate Sodium 1 Each Tab PO HS PRN Constipation Spironolactone 25 mg 03/16/23 09:00 03/16/23 08:32 Spironolactone 25 Mg Tab PO 25 mg DAILY ANURAG Administration Trospium 20 mg 03/16/23 21:00 Trospium Chloride 20 Mg Tablet PO BID ANURAG Intake and Output 03/15/23 03/16/23 03/16/23 22:59 06:59 14:59 Other: Voiding Method Bedside Commode Bedside Commode Bedside Commode # Voids 1 1 # Bowel Movements 1 Weight 77.111 kg 78.4 kg 03/15/23 15:03 03/15/23 15:03
[2023-03-16 20:24] LABS: Glucose,Whole Blood 108 mg/dL (70-110)
[2023-03-16] MEDS: TROSPIUM CHLORIDE 20 MG TABLET PO SCH (20:43)
[2023-03-16] MEDS: APIXABAN 5 MG TAB PO SCH (20:44)
[2023-03-16] MEDS ORDERED: LATANOPROST 0.005% OPHTH DROPS 2.5 ML BTL BOTH EYES SCH (21:00)
[2023-03-16] MEDS ORDERED: FUROSEMIDE 10 MG/ML 2 ML VIAL IV STA (23:06)
--- NOTE | 2023-03-16 23:22 | P.HPIM ---
History of Present Illness H&P Date: 03/16/23 Chief Complaint: Shortness of breath Patient is a 76-year-old female patient known history of coronary artery disease status post coronary artery bypass graft x2 with BRITO to the LAD, reverse saphenous vein graft to the first obtuse marginal artery and mitral valve repair on 03/02/2023, chronic moderate persistent bronchial asthma, hyperlipidemia, diabetes type 2, osteoarthritis, prior history of smoking presents to ER with complaints of worsening shortness of breath and leg swelling. Patient was discharged home on 03/11/2023. Patient otherwise denied any complaints of chest pain. No nausea vomiting abdominal pain or diarrhea. No fever no chills. Chest x-ray showed there is continued cardiomegaly with pulmonary vascular congestion and mild left perihilar increased density. The findings could reflect mild congestive heart failure. EKG showed sinus rhythm Duplex scan of the left lower extremity showed noncompressible DVT seen from PTV extending up to CFV. Laboratory data showed WBC 13.0 hemoglobin 8.7 and platelets 345, sodium 137 potassium 5.4 chloride 106 bicarb is 22 BUN 15 and creatinine 0.79 and blood sugar 137. Troponin 0.293 and proBNP 2580. Review of Systems Constitutional: Patient denies any fever or chills . no Generalized weakness. Abdomen: Patient denied any nausea or vomiting or abd. pain Cardiovascular: Patient denies any chest pain. Does have short of breath no palpitations. Leg swelling. Respiratory: patient does have cough with deep breathing.. no sputum production. Positive shortness of breath Neurologic: Patient denied any numbness or tingling headache. Musculoskeletal: Patient denies any complaints of joint swelling or deformity. Skin: Negative Psychiatric: Negative Endocrine: No heat or cold intolerance. No recent weight gain. Genitourinary: No dysuria or hematuria. All other 14 point ROS negative except the above Past Medical History Past Medical History: Asthma, Coronary Artery Disease (CAD), Diabetes Mellitus, GERD/Reflux, Hyperlipidemia, Osteoarthritis (OA) Additional Past Medical History / Comment(s): cardiomyopathy, elevated heart rate, overactive bladder, glaucoma, hx elevated sed rate,lelo knee pain-arthritis and elmore cyst, covid in 09/2022 History of Any Multi-Drug Resistant Organisms: None Reported Past Surgical History: Appendectomy, Section, Hysterectomy, Orthopedic Surgery Additional Past Surgical History / Comment(s): 3 left breast biopsies, 3 needle loc on right breast- pt states all benign. lelo rotator cuff repair, lelo. hammer toe and bunionectomy, trigger finger release lelo ring fingers, meniscus repair lelo knees, carpal tunnel lelo, rt thumb fusion, lt ankle surgery, D&C, bilateral cataract surgery and laser surgery, COLONOSCOPY , EGD WITH BIOPSY Past Anesthesia/Blood Transfusion Reactions: No Reported Reaction Additional Past Anesthesia/Blood Transfusion Reaction / Comment(s): slow to wake up from anesthesia. Past Psychological History: No Psychological Hx Reported Smoking Status: Former smoker Past Alcohol Use History: None Reported Additional Past Alcohol Use History / Comment(s): STARTED SMOKING AT 20, quit IN 1973 QUIT SMOKED 1-1/2 PPD Past Drug Use History: None Reported - Past Family History Mother History Unknown: Yes Family Medical History: Congestive Heart Failure (CHF), CVA/TIA, Hypertension Son(s) History Unknown: Yes Family Medical History: Deep Vein Thrombosis (DVT) Additional Family Medical History / Comment(s): DVT IN LEG Father Family Medical History: Congestive Heart Failure (CHF), Hypertension Medications and Allergies Home Medications Medication Instructions Recorded Confirmed Type Rosuvastatin Calcium [Crestor] 5 mg PO DAILY 07/16/14 03/15/23 History Solifenacin Succinate [Vesicare] 10 mg PO HS 07/16/14 03/15/23 History Latanoprost Ophth [Xalatan 0.005%] 1 drop BOTH EYES HS 08/17/17 03/15/23 History Furosemide [Lasix] 20 mg PO MOWEFR 12/16/20 03/15/23 History Carboxymethylcellulose Sodium 1 drop BOTH EYES TID PRN 11/16/22 03/15/23 History [Refresh Tears] Multivit with Calcium,Iron,Min 1 tab PO DAILY 11/16/22 03/15/23 History [Women's Multivitamin] Ascorbic Acid [Vitamin C] 500 mg PO DAILY 12/03/22 03/15/23 History Albuterol Inhaler [Ventolin Hfa 2 puff INHALATION RT-QID PRN each 01/16/23 03/15/23 Rx Inhaler] Acetaminophen [Tylenol Extra 500 mg PO Q4HR PRN #0 03/11/23 03/15/23 Rx Strength] Aspirin 325 mg PO DAILY #30 tab 03/11/23 03/15/23 Rx Losartan [Cozaar] 50 mg PO DAILY #30 tab 03/11/23 03/15/23 Rx Pantoprazole [Protonix] 40 mg PO AC-BRKFST #30 tab 03/11/23 03/15/23 Rx Spironolactone [Aldactone] 25 mg PO DAILY #30 tab 03/11/23 03/15/23 Rx metFORMIN HCL [Glucophage] 500 mg PO BID #60 tab 03/11/23 03/15/23 Rx Metoprolol Tartrate [Lopressor] 100 mg PO BID 03/15/23 03/15/23 History Sennosides-Docusate Sodium 2 tab PO HS PRN 03/15/23 03/15/23 History [Senokot-S] predniSONE 10 mg PO DAILY 03/15/23 03/15/23 History Apixaban [Eliquis] 5 mg PO BID #60 tab 03/16/23 Rx Allergies Allergy/AdvReac Type Severity Reaction Status Date / Time budesonide Allergy Wheezing Verified 03/15/23 16:29 fluticasone Allergy Rapid Verified 03/15/23 16:29 Heart Rate, dizziness formoterol Allergy Wheezing, Verified 03/15/23 16:29 [From [employer]] Dizziness, Rapid Heart Rate, High BP glycopyrrolate Allergy Wheezing, Verified 03/15/23 16:29 [From [employer]] Dizziness, Rapid Heart Rate, High BP levalbuterol [From Xopenex] Allergy Wheezing, Verified 03/15/23 16:29 Dizziness azithromycin [From Zithromax] AdvReac intercts Verified 03/15/23 16:29 w/Digoxin benzonatate AdvReac Gerd Verified 03/15/23 16:29 dexamethasone AdvReac Gerd Verified 03/15/23 16:29 doxycycline AdvReac Gerd Verified 03/15/23 16:29 ipratropium AdvReac Rapid Verified 03/15/23 16:29 Heart Rate pravastatin sodium AdvReac Swelling Verified 03/15/23 16:29 [From Pravachol] and pain in legs prednisone AdvReac causes Verified 03/15/23 16:29 thrush ranitidine AdvReac Nausea & Verified 03/15/23 16:29 Vomiting & Diarrhea Sulfa (Sulfonamide AdvReac Rash/Hives Verified 03/15/23 16:29 Antibiotics) Physical Exam Vitals: Vital Signs Temp Pulse Pulse Pulse Resp BP BP 03/16/23 08:30 98.8 F 99 18 125/78 03/16/23 03:25 97.8 F 100 16 127/78 03/16/23 00:00 98.2 F 105 H 18 120/77 03/15/23 22:00 98.3 F 106 H 16 133/85 03/15/23 20:02 98 20 150/78 03/15/23 18:00 99 18 133/71 03/15/23 17:00 104 H 22 135/79 03/15/23 16:00 98 20 121/75 03/15/23 15:00 102 H 16 129/79 03/15/23 14:20 99.1 F 95 18 130/66 Pulse Ox 03/16/23 08:30 97 03/16/23 03:25 95 03/16/23 00:00 97 03/15/23 22:00 99 03/15/23 20:02 99 03/15/23 18:00 99 03/15/23 17:00 99 03/15/23 16:00 98 03/15/23 15:00 100 03/15/23 14:20 100 Intake and Output 03/15/23 03/16/23 03/16/23 22:59 06:59 14:59 Other: Voiding Method Bedside Commode Bedside Commode # Voids 1 # Bowel Movements 1 Weight 77.111 kg 78.4 kg PHYSICAL EXAMINATION: Patient is lying in the bed comfortably, no acute distress, awake alert and oriented.. HEENT: Normocephalic. Neck is supple. Pupils reactive. Nostrils clear. Oral cavity is moist. Neck reveals no JVD, carotid bruits, or thyromegaly. CHEST EXAMINATION: Trachea is central. Symmetrical expansion. No wheezing. Minimal bibasilar crackles. Nonlabored breathing.. CARDIAC: Normal S1, S2 with no gallops. No murmurs ABDOMEN: Soft. Bowel sounds present. Nontender. No organomegaly. No abdominal bruits. Extremities: Bilateral lower extremity edema left greater than right.. No clubbing or cyanosis Neurologically awake, alert, oriented x3 with well-coordinated movements. No focal deficits noted Skin: No rash or skin lesions. Psychiatric: Coperative. Nonsuicidal, Musculoskeletal: No joint swelling or deformity. Normal range of motion. Results CBC & Chem 7: 03/15/23 15:03 03/16/23 10:32 Labs: Abnormal Lab Results - Last 24 Hours (Table) 03/15/23 03/15/23 03/15/23 Range/Units 15:03 15:03 15:03 WBC 13.0 H (3.8-10.6) k/uL RBC 3.04 L (3.80-5.40) m/uL Hgb 8.7 L (11.4-16.0) gm/dL Hct 27.6 L (34.0-46.0) % Neutrophils # 10.0 H (1.3-7.7) k/uL APTT 20.2 L (22.0-30.0) sec Potassium 5.4 H (3.5-5.1) mmol/L Glucose 137 H (74-99) mg/dL POC Glucose (mg/dL) (70-110) mg/dL Troponin I (0.000-0.034) ng/mL 03/15/23 03/15/23 03/16/23 Range/Units 15:03 22:03 06:09 WBC (3.8-10.6) k/uL RBC (3.80-5.40) m/uL Hgb (11.4-16.0) gm/dL Hct (34.0-46.0) % Neutrophils # (1.3-7.7) k/uL APTT (22.0-30.0) sec Potassium (3.5-5.1) mmol/L Glucose (74-99) mg/dL POC Glucose (mg/dL) 137 H 138 H (70-110) mg/dL Troponin I 0.293 H* (0.000-0.034) ng/mL Thrombosis Risk Factor Assmnt - DVT/VTE Prophylaxis DVT/VTE Prophylaxis: Pharmacologic Prophylaxis ordered - Choose All That Apply Any of the Below Risk Factors Present?: No Other Risk Factors: No Other congenital or acquired thrombophilia - If yes, enter type in comment: No Thrombosis Risk Factor Assessment Level: Very Low Risk Assessment and Plan Assessment: Shortness of breath secondary to acute on chronic systolic dysfunction ejection fraction 35% Acute left lower acute DVT Status post CABG x2 vessel and mitral valve repair on 03/02/2023 Mildly elevated troponin level Coronary artery disease Moderate persistent bronchial asthma. On prednisone 10 mg daily. COPD Prior history of smoking Hyperlipidemia Diabetes type 2 Normocytic anemia with hemoglobin 8.7 DVT prophylaxis. Patient is initiated on Eliquis. Plan: Patient will be continued on telemetry monitoring. Was given a dose of IV Lasix 40 mg x 1 in the ER. Continue with aspirin, metoprolol and Aldactone. Continue with Lasix and cardiology, pulmonary and CT surgery was consulted. Monitor H&H. Prescription for Eliquis was sent to pharmacy. Anticipate discharge with final cardiology recommendations. Discussed with with her daughter and the patient at bedside in detail. Time with Patient: Greater than 30
[2023-03-17] MEDS: SODIUM CHLORIDE 0.9% 1,000 ML IV SCH (05:28)
[2023-03-17 06:11] LABS: Glucose,Whole Blood 88 mg/dL (70-110)
[2023-03-17] MEDS: INSULIN ASPART (NovoLOG) 100 UNIT/ML VIAL SQ SCH ×2 (07:04→12:38)
--- NOTE | 2023-03-17 07:16 | XR ---
EXAMINATION TYPE: XR chest 1V portable DATE OF EXAM: 03/17/2023 HISTORY: Shortness of breath. COMPARISON: 03/15/2023 TECHNIQUE: Single view of the chest is submitted. FINDINGS: Demonstrated are scattered senescent parenchymal change. There is no evidence for focal infiltrate. The heart is stable. Mild Residual pulmonary venous congestion however there is overall interval. Hilar and mediastinal structures are within normal limits. Degenerative changes are seen of the dorsal spine. IMPRESSION: 1. Mild Residual pulmonary venous congestion however there is overall interval.
[2023-03-17] MEDS: PANTOPRAZOLE 40 MG TABLET PO SCH (07:32)
[2023-03-17] MEDS: TROSPIUM CHLORIDE 20 MG TABLET PO SCH (08:33)
[2023-03-17] MEDS: ASPIRIN 325 MG TAB PO SCH (08:34)
[2023-03-17] MEDS: ASCORBIC ACID 500 MG TAB PO SCH (08:34)
[2023-03-17] MEDS: metFORMIN 500 MG TAB PO SCH (08:34)
[2023-03-17] MEDS: APIXABAN 5 MG TAB PO SCH (08:34)
[2023-03-17] MEDS: METOPROLOL TARTRATE 50 MG TAB PO SCH (08:34)
[2023-03-17] MEDS: MULTIVITAMINS, THERA 1 EACH TAB PO SCH (08:34)
[2023-03-17] MEDS: ATORVASTATIN 10 MG TAB PO SCH (08:34)
[2023-03-17] MEDS: SPIRONOLACTONE 25 MG TAB PO SCH (08:34)
[2023-03-17] MEDS: predniSONE 10 MG TAB PO SCH (08:34)
[2023-03-17] MEDS ORDERED: FUROSEMIDE 10 MG/ML 4 ML VIAL IV SCH (09:00)
[2023-03-17 09:32] LABS: Basophils % (A) 0 %; Eosinophils # (A) 0.5 k/uL (0-0.7); Eosinophils % (A) 4 %; HCT 32.1 % (34.0-46.0); HGB 9.9 gm/dL (11.4-16.0); Hypochromasia Marked; Lymphocytes # (A) 2.9 k/uL (1.0-4.8); Lymphocytes % (A) 22 %; MCH 27.4 pg (25.0-35.0); MCHC 30.9 g/dL (31.0-37.0); MCV 88.5 fL (80.0-100.0); Mean Platelet Volume 7.8; Monocytes # (A) 0.5 k/uL (0-1.0); Monocytes % (A) 4 %; Neutrophils # (A) 8.7 k/uL (1.3-7.7); Neutrophils % (A) 67 %; Platelet Count 501 k/uL (150-450); Poikilocytosis Slight; RBC 3.62 m/uL (3.80-5.40); RDW 15.1 % (11.5-15.5); WBC 12.9 k/uL (3.8-10.6)
[2023-03-17 09:47] LABS: Calcium 9.6 mg/dL (8.4-10.2)
[2023-03-17] MEDS: ALBUTEROL HFA INHALER INHALATION PRN ×2 (10:15→13:15)
[2023-03-17 11:38] LABS: Glucose,Whole Blood 166 mg/dL (70-110)
[2023-03-17 12:49] VITALS: BP 93/64; PULSE 100; RESP 16; TEMP 98.4
--- NOTE | 2023-03-17 13:12 | P.PN ---
Subjective Progress Note Date: 03/17/23 History of present illness: Patient is a pleasant 77-year-old female with significant past medical history of CAD status post 2 vessel CABG on 03/02/23 with atrial appendage ligation and mitral valve repair, inappropriate sinus tachycardia, cardiomyopathy, diabetes, hyperlipidemia who presented to the emergency department with complaints of shortness of breath. She reports that she had mild shortness of breath for the past few days then on Thursday she woke up and when she went to use the restroom she had significant shortness of breath, this progressively got worse throughout the morning. Denies any associated this pain or diaphoresis. She reports having intermittent hallucinations and is concerned that it is the losartan causing this. She has left lower extremity swelling and reports increased pain and tenderness of the inner left thigh for the past 3 days. She does feel a little better this morning but reports that her breathing is not at baseline. Labs reviewed: Troponin 0.293, BNP 2580, WBC 13.0, hemoglobin 8.7, platelets 345, creatinine 0.79, A1c 6.9, LDL is 51. Chest x-ray shows cardiomegaly with pulmonary venous congestion mild left perihilar increased density. Preoperative echo 02/27/23 with an ejection fraction of 30. Carotid ultrasound shows mild plaquing bilaterally. Venous Doppler ultrasound was positive for long segment acute DVT in the LLE, she was started on Eliquis. 03/17 She is out of bed to chair. Breathing has improved, she is feeling better. She verbalized understanding of her medication changes and plan of care. Denies any chest pain or pressure. REVIEW OF SYSTEMS: No fever or chills. No cough or expectoration. No diaphoresis. Patient denies headache, dizziness, blurred vision, double vision. Patient denies any stomach discomfort. No nausea, vomiting. No hematochezia. No hematemesis. Denies any black stools or blood in his stools. Denies dysuria or hematuria. No muscle weakness or numbness. No chest pain or pressure. Reports mild shortness of breath, hallucinations. PHYSICAL EXAMINATION: This is a 77-year-old female in no apparent distress at the time of my examination. HEENT: Head is atraumatic, normocephalic. Pupils are equal, round. Sclerae anicteric. Conjunctivae are clear. Mucous membranes of the mouth are moist. Neck is supple. There is no jugular venous distention. No carotid bruit is heard. CHEST EXAMINATION: Lungs are clear to auscultation. No chest wall tenderness is noted on palpation or with deep breathing. HEART EXAMINATION: Heart regular rate and rhythm. S1, S2 heard. No murmurs, gallops or rub. ABDOMEN: Soft, nontender. Bowel sounds are heard. EXTREMITIES: 2+ peripheral pulses, LLE peripheral edema with inner thigh firmness and tenderness. RLE trace edema. NEUROLOGIC EXAMINATION: Patient is awake, alert and oriented x3. IMPRESSION AND PLAN: CAD status post CABG 2, left atrial appendage ligation, mitral valve repair on 03/02/23 Hypertension Hyperlipidemia Diabetes History of inappropriate sinus tachycardia Cardiomyopathy, EF 30% Shortness of breath Elevated troponin Leukocytosis Anemia LLE DVT PLAN: She is feeling better today. Eliquis for DVT. ECHO report is pending. Continue diuretics, Lasix 40mg IV daily. Continue Lopressor. OK to discharge home from cardiology standpoint. Follow up in clinic in 1 week. Continue lasix 40mg po daily at discharge. Family at bedside updated on plan of care. I am dictating on behalf of Dr. Obi Giraldo's history/physical and assessment/plan. Objective - Vital Signs Vital signs: Vital Signs Temp 99.3 F 03/17/23 08:30 Pulse 108 H 03/17/23 08:30 Resp 18 03/17/23 08:30 BP 108/51 03/17/23 08:30 Pulse Ox 94 L 03/17/23 08:30 FiO2 Intake & Output 03/16/23 03/17/23 03/17/23 18:59 06:59 18:59 Intake Total 300 240 240 Output Total 1000 600 Balance 300 -760 -360 Weight 74.5 kg Intake: Oral 300 240 240 Output: Urine 1000 600 Other: Voiding Method Bedside Commode Bedside Commode Bedside Commode # Voids 3 2 - Labs CBC & Chem 7: 03/17/23 09:13 03/17/23 09:13 Labs: Abnormal Lab Results - Last 24 Hours (Table) 03/16/23 03/16/23 03/17/23 Range/Units 13:14 16:30 09:13 WBC 12.9 H (3.8-10.6) k/uL RBC 3.62 L (3.80-5.40) m/uL Hgb 9.9 L (11.4-16.0) gm/dL Hct 32.1 L (34.0-46.0) % MCHC 30.9 L (31.0-37.0) g/dL Plt Count 501 H (150-450) k/uL Neutrophils # 8.7 H (1.3-7.7) k/uL BUN (7-17) mg/dL Glucose (74-99) mg/dL POC Glucose (mg/dL) 217 H (70-110) mg/dL Troponin I 0.229 H* (0.000-0.034) ng/mL 03/17/23 03/17/23 Range/Units 09:13 11:37 WBC (3.8-10.6) k/uL RBC (3.80-5.40) m/uL Hgb (11.4-16.0) gm/dL Hct (34.0-46.0) % MCHC (31.0-37.0) g/dL Plt Count (150-450) k/uL Neutrophils # (1.3-7.7) k/uL BUN 19 H (7-17) mg/dL Glucose 175 H (74-99) mg/dL POC Glucose (mg/dL) 166 H (70-110) mg/dL Troponin I (0.000-0.034) ng/mL
--- NOTE | 2023-03-17 13:37 | P.PN ---
Subjective Progress Note Date: 03/17/23 This is a very pleasant 77-year-old female patient with a known history of moderate persistent chronic bronchial asthma, coronary artery disease, diabetes mellitus, hyperlipidemia, former smoker. She was recently found to have significant coronary artery disease as well as moderate to severe mitral regur gitation. She had undergone coronary artery bypass grafting 2 with a BRITO to the LAD, reverse saphenous vein graft to the first obtuse marginal artery and the mitral valve repair in 03/02/2023. She did have extended time on the mechanical ventilator due to her underlying asthma. She subsequently recovered and was discharged home on 03/11/2023. She was recommended subacute versus inpatient rehab however declined and preferred to go home. She came back to the emergency room yesterday 03/15/2023 with complaints of increasing shortness of breath. Chest x-ray revealed continued cardiomegaly with pulmonary venous congestion and mild left perihilar density. Most likely reflecting mild conge stive heart failure. EKG revealed sinus rhythm. White count 13.0. Hemoglobin 8.7. Platelets 345. INR 1.1. Sodium 140. Potassium 4.2. Chloride 104. Bicarb 28. BUN 18. Creatinine 0.96. Glucose 136. ProBNP 2580. Troponin 0.293. Doppler of the lower extremities today revealed a long segment acute DVT of the left lower extremity. She's been initiated on Eliquis. She is seen today in consultation on the selective care unit. Currently sitting up at the bedside. Awake and alert in no acute distress. Maintaining good O2 saturations in the mid to upper 90s on room air. Afebrile. Hemodynamically stable. She is continued on diuretics, prednisone, albuterol. The patient is seen today 03/17/2023 in follow-up on the selective care unit. She is currently sitting up in bed. Awake and alert in no acute distress. Denies any worsening shortness of breath, cough or congestion. Maintaining O2 saturations up to 100% on room air. Afebrile. Hemodynamically stable. Follow- up chest x-ray revealed mild residual pulmonary venous congestion. Overall stable. White count 12.9. Hemoglobin 9.9. Platelets 501. Sodium 139. Potassium 4.0. Bicarb 26. BUN 19. Creatinine 0.95. Glucose 175. She had been initiated on Eliquis. Continues on albuterol as needed, prednisone 10 mg daily. Remains on IV diuretics. Currently in a negative 460 ML balance. Objective - Vital Signs Vital signs: Vital Signs Temp 98.4 F 03/17/23 12:00 Pulse 100 03/17/23 12:00 Resp 16 03/17/23 12:00 BP 93/64 03/17/23 12:00 Pulse Ox 100 03/17/23 12:00 FiO2 Intake & Output 03/16/23 03/17/23 03/17/23 18:59 06:59 18:59 Intake Total 300 240 480 Output Total 1000 600 Balance 300 -760 -120 Weight 74.5 kg Intake: Oral 300 240 480 Output: Urine 1000 600 Other: Voiding Method Bedside Commode Bedside Commode Bedside Commode # Voids 3 2 - Exam GENERAL EXAM: Alert, 77-year-old female, on room air, comfortable in no apparent distress. HEAD: Normocephalic. EYES: Normal reaction of pupils, equal size. NOSE: Clear with pink turbinates. THROAT: No erythema or exudates. NECK: No masses, no JVD. CHEST: No chest wall deformity. Sternum stable. Incision clean dry well approximated. LUNGS: Equal air entry with faint crackles in the posterior bases. CVS: S1 and S2 normal with no audible murmur, regular rhythm. ABDOMEN: No hepatosplenomegaly, normal bowel sounds, no guarding or rigidity. SPINE: No scoliosis or deformity SKIN: No rashes CENTRAL NERVOUS SYSTEM: No focal deficits, tone is normal in all 4 extremities. EXTREMITIES: There is 1+ peripheral edema. No clubbing, no cyanosis. Peripheral pulses are intact. - Labs CBC & Chem 7: 03/17/23 09:13 03/17/23 09:13 Labs: Abnormal Lab Results - Last 24 Hours (Table) 03/16/23 03/16/23 03/17/23 Range/Units 13:14 16:30 09:13 WBC 12.9 H (3.8-10.6) k/uL RBC 3.62 L (3.80-5.40) m/uL Hgb 9.9 L (11.4-16.0) gm/dL Hct 32.1 L (34.0-46.0) % MCHC 30.9 L (31.0-37.0) g/dL Plt Count 501 H (150-450) k/uL Neutrophils # 8.7 H (1.3-7.7) k/uL BUN (7-17) mg/dL Glucose (74-99) mg/dL POC Glucose (mg/dL) 217 H (70-110) mg/dL Troponin I 0.229 H* (0.000-0.034) ng/mL 03/17/23 03/17/23 Range/Units 09:13 11:37 WBC (3.8-10.6) k/uL RBC (3.80-5.40) m/uL Hgb (11.4-16.0) gm/dL Hct (34.0-46.0) % MCHC (31.0-37.0) g/dL Plt Count (150-450) k/uL Neutrophils # (1.3-7.7) k/uL BUN 19 H (7-17) mg/dL Glucose 175 H (74-99) mg/dL POC Glucose (mg/dL) 166 H (70-110) mg/dL Troponin I (0.000-0.034) ng/mL Assessment and Plan Assessment: Dyspnea secondary to an acute exacerbation of chronic systolic congestive heart failure in a patient with previous diffuse global hypokinesia and impaired left ventricular systolic function with an ejection fraction of 35%. Follow-up echocardiogram pending Acute left lower extremity DVT, initiated on Eliquis Recent discharge, 03/11/2023, following coronary artery bypass grafting and mitral valve repair on 03/02/2023 History of chronic moderate persistent bronchial asthma, currently inactive and stable History of chronic obstructive pulmonary disease with an FEV1 value of 42% of predicted Former smoker Diabetes mellitus Hyperlipidemia Acute on chronic anemia, current hemoglobin 9.9 Plan: The patient was seen and evaluated Chest x-ray, labs and medications reviewed Stable and on room air Continue IV diuretics Follow-up echocardiogram pending We'll continue to follow I have personally seen and examined the patient, performed the documentation and the assessment and plan as written. Number of minutes spent on the visit: 10.
[2023-03-17 16:15] LABS: Glucose,Whole Blood 231 mg/dL (70-110)
--- NOTE | 2023-03-18 09:32 | CA ---
Transthoracic Echo Report Name: Mary Bolaños Age: 77 Gender: F : 1945 Exam Date: 03/16/2023 15:40 Exam Location: [facility] Ht (in): 60 Wt (lb): 172 Ordering Physician: Carmen Davis Attending/Referring Phys: Francisco Swift MD Boxing Inspector Arturo Acosta, ANDRÉS Procedure CPT: Indications: SOB, s/p cabg Cardiac Hx: MV repair Technical Quality: Fair Contrast 1: Total Dose (mL): Contrast 2: Total Dose (mL): MEASUREMENTS (Male / Female) Normal Values 2D ECHO LV Diastolic Volume MOD BP 67.4 cm??? 67 - 155 / 56 - 104 cm??? LV Systolic Volume MOD BP 48.7 cm??? 22 - 58 / 19 - 49 cm??? LV Ejection Fraction MOD BP 27.8 % >= 55 % LV Stroke Volume MOD BP 18.8 cm??? LV Diastolic Volume MOD 4C 91.3 cm??? LV Systolic Volume MOD 4C 63.3 cm??? LV Ejection Fraction MOD 4C 30.7 % LV Stroke Volume MOD 4C 28.0 cm??? LV Diastolic Length 4C 6.7 cm LV Systolic Length 4C 5.6 cm LV Diastolic Volume MOD 2C 42.4 cm??? LV Systolic Volume MOD 2C 30.8 cm??? LV Ejection Fraction MOD 2C 27.5 % LV Stroke Volume MOD 2C 11.7 cm??? LV Diastolic Length 2C 5.6 cm LV Systolic Length 2C 4.6 cm DOPPLER MV Deceleration [facility] 1064.9 cm/s??? Mitral E Point Velocity 90.7 cm/s Mitral A Point Velocity 75.1 cm/s Mitral E to A Ratio 1.2 MV Deceleration Time 85.2 ms MV E' Velocity 2.8 cm/s Mitral E to MV E' Ratio 32.5 TR Peak Velocity 257.8 cm/s TR Peak Gradient 26.6 mmHg Right Ventricular Systolic Press 36.6 mmHg FINDINGS Left Ventricle Left ventricular ejection fraction is estimated at 35-40 %. Moderate left ventricular dilatation. Grade 3 diastolic dysfunction. Moderately reduced global left ventricular systolic function. Right Ventricle Normal right ventricular size. RVSP_ 37 mm Hg Right Atrium Mild right atrial dilatation. Left Atrium Mild left atrial dilatation. Mitral Valve Severe thickening/calcification of the anterior mitral valve leaflet. Moderate thickening/calcification of the posterior mitral valve leaflet. Moderate mitral annular calcification. Mildly decreased mobility of the anterior mitral valve leaflet. Mildly decreased mobility of the posterior mitral valve leaflet. Trace to mild mitral regurgitation. Aortic Valve Trileaflet aortic valve. Tricuspid Valve [id number] tricuspid regurgitation. Pulmonic Valve Pulmonic valve not well visualized. Pericardium Normal pericardium. No pericardial effusion. Aorta Normal size aortic root and proximal ascending aorta. CONCLUSIONS Severe LV systolic dysfunction with EF between 35-40%. Grade 3 diastolic dysfunction Poorly visualized mitral valve. Severe mitral annular calcification. Mild mitral regurgitation Previewed by: Dr. Carlos Briceño MD (Electronically Signed) Final Date: 18 March 2023 09:31
--- NOTE | 2023-03-19 06:44 | P.DS ---
Providers Date of admission: 03/15/23 15:54 Expected date of discharge: 03/17/23 Attending physician: Kristopher Melendrez Consults: 03/15/23 15:54 Consult Physician Routine Consulting Provider: Carlos Briceño Consult Reason/Comments: dyspnea Do you want consulting provider notified?: Yes 03/16/23 11:54 Consult Physician Urgent Consulting Provider: Barak Jackson Consult Reason/Comments: recent open heart, known, dyspnea Do you want consulting provider notified?: Yes Primary care physician: Magnus Richard Hospital Course: Final diagnosis Shortness of breath secondary to acute on chronic systolic dysfunction ejection fraction 35% Acute left lower acute DVT Status post CABG x2 vessel and mitral valve repair on 03/02/2023 Mildly elevated troponin level Coronary artery disease Moderate persistent bronchial asthma. On prednisone 10 mg daily. COPD Prior history of smoking Hyperlipidemia Diabetes type 2 Normocytic anemia with hemoglobin 8.7 DVT prophylaxis Discharge disposition Patient is being discharged in a stable condition with guarded prognosis to home with home care. Patient will follow-up with Dr. richard in the outpatient setting upon discharge. Patient is to continue with cardiac rehab as well as follow-up with CT surgery, cardiology, and pulmonary as scheduled. Total time taken is greater than 35 minutes. Hospital course This is a 77-year-old female who was recently admitted with increasing shortness of breath with recent hospitalization status post CABG and was closely monitored. Patient evaluated by cardiology along with CT surgery and pulmonary. Patient did have some left lower extremity DVT and being started on eliquis . Patient to continue with Lasix daily per cardiology recommendations and close follow-up in the outpatient setting as scheduled this week. Patient has been cleared by consultations for discharge today. Please refer to consultation notes for further HPI. Currently no reports of chest pain, shortness of breath, or palpitations. Patient is afebrile. No reports of nausea or vomiting and patient is tolerating diet. Patient will be discharged home today. Guarded prognosis and high risk for readmissions given patient's significant multiple comorbidities Physical exam: Gen: This is a 77-year-old female who is awake, alert and oriented 3, well- developed, well-nourished, obese HEENT: Head is atraumatic, normocephalic. Pupils equal, round. Sclerae is anicteric. NECK: Supple. No JVD. No lymphadenopathy. No thyromegaly. LUNGS: Diminished breath sounds bilaterally with no wheezes, some coarse rhonchi noted. No intercostal retractions. HEART: S1, S2 are muffled ABDOMEN: Soft. Bowel sounds are present. No masses. No tenderness. EXTREMITIES: No pedal edema. No calf tenderness. NEUROLOGICAL: Patient is awake, alert and oriented x3. Cranial nerves 2 through 12 are grossly intact. Please refer to medication reconciliation sheet for a list of medications. The impression and plan of care has been dictated by Serena Cantrell, Nurse Practitioner as directed. Dr. Bang MD I have performed a history and examination and MDM of this patient, discussed the same with the dictator, and agree with the dictator's assessment and plan as written ,documented as a scribe. Based on total visit time, I have performed more than 50% of the visit. Patient Condition at Discharge: Fair Plan - Discharge Summary Discharge Rx Participant: No New Discharge Prescriptions: New Apixaban [Eliquis] 5 mg PO BID #60 tab Furosemide [Lasix] 40 mg PO DAILY #30 tablet Continue Solifenacin Succinate [Vesicare] 10 mg PO HS Rosuvastatin Calcium [Crestor] 5 mg PO DAILY Latanoprost Ophth [Xalatan 0.005%] 1 drop BOTH EYES HS Multivit with Calcium,Iron,Min [Women's Multivitamin] 1 tab PO DAILY Ascorbic Acid [Vitamin C] 500 mg PO DAILY Spironolactone [Aldactone] 25 mg PO DAILY #30 tab Aspirin 325 mg PO DAILY #30 tab Pantoprazole [Protonix] 40 mg PO AC-BRKFST #30 tab metFORMIN HCL [Glucophage] 500 mg PO BID #60 tab Metoprolol Tartrate [Lopressor] 100 mg PO BID 30 Days #60 tab Carboxymethylcellulose Sodium [Refresh Tears] 1 drop BOTH EYES TID PRN PRN Reason: Dry Eye(S) Albuterol Inhaler [Ventolin Hfa Inhaler] 2 puff INHALATION RT-QID PRN each PRN Reason: Shortness Of Breath Or Wheezing Losartan [Cozaar] 50 mg PO DAILY #30 tab Acetaminophen [Tylenol Extra Strength] 500 mg PO Q4HR PRN #0 PRN Reason: Pain predniSONE 10 mg PO DAILY Sennosides-Docusate Sodium [Senokot-S] 2 tab PO HS PRN PRN Reason: Constipation Discontinued Furosemide [Lasix] 20 mg PO [id number] Clopidogrel [Plavix] 75 mg PO DAILY #30 tab Discharge Medication List Rosuvastatin Calcium [Crestor] 5 mg PO DAILY 07/16/14 [History] Solifenacin Succinate [Vesicare] 10 mg PO HS 07/16/14 [History] Latanoprost Ophth [Xalatan 0.005%] 1 drop BOTH EYES HS 08/17/17 [History] Carboxymethylcellulose Sodium [Refresh Tears] 1 drop BOTH EYES TID PRN 11/16/22 [History] Multivit with Calcium,Iron,Min [Women's Multivitamin] 1 tab PO DAILY 11/16/22 [History] Ascorbic Acid [Vitamin C] 500 mg PO DAILY 12/03/22 [History] Albuterol Inhaler [Ventolin Hfa Inhaler] 2 puff INHALATION RT-QID PRN each 01/16/23 [Rx] Acetaminophen [Tylenol Extra Strength] 500 mg PO Q4HR PRN #0 03/11/23 [Rx] Aspirin 325 mg PO DAILY #30 tab 03/11/23 [Rx] Losartan [Cozaar] 50 mg PO DAILY #30 tab 03/11/23 [Rx] Pantoprazole [Protonix] 40 mg PO AC-BRKFST #30 tab 03/11/23 [Rx] Spironolactone [Aldactone] 25 mg PO DAILY #30 tab 03/11/23 [Rx] metFORMIN HCL [Glucophage] 500 mg PO BID #60 tab 03/11/23 [Rx] Sennosides-Docusate Sodium [Senokot-S] 2 tab PO HS PRN 03/15/23 [History] predniSONE 10 mg PO DAILY 03/15/23 [History] Apixaban [Eliquis] 5 mg PO BID #60 tab 03/16/23 [Rx] Furosemide [Lasix] 40 mg PO DAILY #30 tablet 03/17/23 [Rx] Metoprolol Tartrate [Lopressor] 100 mg PO BID 30 Days #60 tab 03/17/23 [Rx] Follow up Appointment(s)/Referral(s): [facility],Cardiac [NON-STAFF] - 4 Weeks (You will receive a phone call in approximately 4-6 weeks for evaluation for cardiac rehab) Magnus Richard MD [Primary Care Provider] - 03/30/23 9:30 am [facility], [NON-STAFF] - 1-2 Days (To be seen the day after discharge, then 2-3 times per week for 4 weeks) Seth Astorga MD [STAFF PHYSICIAN] - 03/31/23 2:00 pm Arias Negrete MD [STAFF PHYSICIAN] - 03/24/23 10:15 am Francisco Swift MD [STAFF PHYSICIAN] - 03/27/23 10:15 am Patient Instructions/Handouts: Heart Failure (DC) Activity/Diet/Wound Care/Special Instructions: DISCHARGE INSTRUCTIONS: 1. No driving for 4 weeks, or until physician gives their ok. 2. The patient should sleep in their own bed, no medical bed needed. 3. Stairs are not an issue. If the bedroom is upstairs, it is advised that the patient go up at night and down in the morning for the first week. Go slowly, using handrail and take 1 step at a time. 4. SHUKRI hose are to be worn for 30 days post surgery or until physician discontinues. 5. Heart hugger is to be worn 100% of the time until physician discontinues.(except when showering) 6. No lifting, pushing, or pulling more than 10 pounds for 12 weeks. The physician will advise of any restriction changes. 7. The patient is expected to continue the prescribed walking program. 8. Continue pain control per as needed orders. 9. Continue with incentive spirometry and splinting/heart hugger until otherwise directed by the physician. 10. Must shower daily using liquid antibacterial soap 11. Routine sternal incision care. No powders, lotions, ointments on incisions. No dressings are necessary on incisions unless they are draining. Dermabond tape is to remain on sternal incision until surgeon follow-up. 12. Please call surgeon/COMPUTER REPAIR INSTRUCTOR for temp greater than 101 F or purulent drainage from incisions. 13. You should weigh yourself daily, record and bring log with you to follow up appointments. 14. All prescriptions given by surgeon for 30 days. Refills need to be filled through engineer/primary care physician. 15. A Red armband has been placed on the patient. It should be worn for 30 days post discharge from surgery and will be removed by the cardiac surgeons. If an ER visit is necessary, please make sure the number on the Red armband is called before going to ER. 16. You have been referred to and are expected to begin Cardiac Rehab in approximately 4-6 weeks. HOME HEALTH SERVICES TO PROVIDE: RN SKILLED HOME CARE SERVICES FOR POST-OP SURGICAL PATIENTS WITH THE FOLLOWING: Coronary Artery Bypass Surgery (CABG), Mitral Valve Replacement/Repair ( MVR), Aortic Valve Replacement/Repair (AVR) RN TO CONTINUE EDUCATION FROM ``ROAD TO A HEALTH HEART PATIENT EDUCATION MANUAL (GIVEN TO PATIENT IN THE HOSPITAL) MEDICATION RECONCILIATION WITH EDUCATION NEEDED ON FIRST HOME VISIT EMPHASIZE IMPORTANCE OF WEARING BREAST SUPPORT/HEART HUGGER ENCOURAGE USE OF INCENTIVE SPIROMETER 10 X EVERY HOUR WHILE AWAKE ENCOURAGE UTILIZATION OF LOWER EXTREMITY COMPRESSION STOCKINGS/SHUKRI HOSE and ELEVATE LEGS ABOVE LEVEL OF HEART WHILE AT REST. ENCOURAGE AMBULATION 3-5x/day INCREASING TOLERATES, WHILE AVOIDING EXTREMES IN TEMPERATURE FREQUENCY: RN TO OPEN THE PATIENT WITHIN 24 HOURS OF DISCHARGE FROM THE HOSPITAL WITH TELEHEALTH INSTALLED AT [facility] [place], RN TO VISIT 2-3 X A WEEK FOR 4 WEEKS ESTABLISHED BY PATIENT NEEDS. LABORATORY: CBC, CMP TO BE DRAWN ON THE THIRD DAY HOME, (RAN STAT) FAX RESULTS TO [phone]. TELEHEALTH PARAMETERS: WEIGHT: NOTIFY MD OF WEIGHT GAIN OF 2 LBS IN 24 HOURS OR 5 LBS IN ONE WEEK HR: NOTIFY MD OF HR <55 BPM OR HR>100 BPM BP: NOTIFY MD IF BP <90/55 OR BP>140/100 O2 SAT: NOTIFY MD IF PO2<93% ON ROOM AIR SEND TELEHEALTH REPORT TO SURFACING TECHNICIAN AND CARDIOVASCULAR SURGEON THE FIRST WEEK OF CARE AND THEN BI-WEEKLY. PLEASE ADDITIONALLY COMMUNICATE ANY ABNORMALS AND NEW FINDINGS TO THE SURGEONS OFFICE. Discharge Disposition: HOME WITH HOME HEALTH SERVICES
== END 2023-03-17 17:12 | disposition home health service (06) ==
LOC: EC 13:59 → 3SCARD 15:54
PROVIDERS: ADMIT Internal Medicine; ATTEND Internal Medicine
DX: I50.23 Acute on chronic systolic (congestive) heart failure (principal); I25.10 Atherosclerotic heart disease of native coronary artery without angina pectoris; E11.9 Type 2 diabetes mellitus without complications; K21.9 Gastro-esophageal reflux disease without esophagitis; E78.5 Hyperlipidemia, unspecified; I42.9 Cardiomyopathy, unspecified; R77.8 Other specified abnormalities of plasma proteins; D72.829 Elevated white blood cell count, unspecified; D64.9 Anemia, unspecified; I34.0 Nonrheumatic mitral (valve) insufficiency; M19.90 Unspecified osteoarthritis, unspecified site; I82.402 Acute embolism and thrombosis of unspecified deep veins of left lower extremity; J45.40 Moderate persistent asthma, uncomplicated; Z86.16 Personal history of COVID-19; Z87.891 Personal history of nicotine dependence; Z95.1 Presence of aortocoronary bypass graft; Z79.899 Other long term (current) drug therapy; Z79.82 Long term (current) use of aspirin; Z79.02 Long term (current) use of antithrombotics/antiplatelets; Z79.84 Long term (current) use of oral hypoglycemic drugs; Z79.01 Long term (current) use of anticoagulants; Z79.52 Long term (current) use of systemic steroids; Z88.1 Allergy status to other antibiotic agents; Z88.2 Allergy status to sulfonamides; Z82.49 Family history of ischemic heart disease and other diseases of the circulatory system
CPT/HCPCS: 96376; 96372 ×2; 96374; 99285; 36415; 94640 ×3; 93005; 93306; 83880; 80048 ×3; 83735; 84484 ×2; 85025 ×2; 85610; 85730; 71045; 71046; 93970; G0378 ×3; J1940 ×2; J7512 ×2

== ENCOUNTER 2023-03-22 19:03 | Emergency (ER) | payer MEDICARE, MEDICAID ==
[2023-03-22 19:17] VITALS: RESP 16
--- NOTE | 2023-03-22 19:19 | ED ---
General Adult HPI - General Chief complaint: Recheck/Abnormal Lab/Rx Stated complaint: coronary issue Time Seen by Provider: 03/22/23 19:18 Source: patient, family Mode of arrival: wheelchair Limitations: no limitations - History of Present Illness Initial comments: Patient presents to the ED with her son for evaluation. Patient states that she had open heart surgery performed 20 days ago, and she states that she has had a slight dehiscence of the lower margin of her sternotomy wound. Patient states that she has had drainage from that area of her wound for the past several days. Patient states that she is concerned that the wound has become more dehisced, and that is why she has come to the ED today. She is also concerned about the possibility of infection. Patient denies trauma or injury, wound pain, wound redness, foul smelling drainage, increasing drainage, a fever, chest pain, dyspnea, palpitations, dizziness, nausea/vomiting, or any other symptoms or complaints. Patient states that she is scheduled to see her cutter v groove, as well as her cardiothoracic surgereon, in the upcoming couple of weeks. - Related Data Home Medications Medication Instructions Recorded Confirmed Rosuvastatin Calcium [Crestor] 5 mg PO DAILY 07/16/14 03/15/23 Solifenacin Succinate [Vesicare] 10 mg PO HS 07/16/14 03/15/23 Latanoprost Ophth [Xalatan 0.005%] 1 drop BOTH EYES HS 08/17/17 03/15/23 Carboxymethylcellulose Sodium 1 drop BOTH EYES TID PRN 11/16/22 03/15/23 [Refresh Tears] Multivit with Calcium,Iron,Min 1 tab PO DAILY 11/16/22 03/15/23 [Women's Multivitamin] Ascorbic Acid [Vitamin C] 500 mg PO DAILY 12/03/22 03/15/23 Sennosides-Docusate Sodium 2 tab PO HS PRN 03/15/23 03/15/23 [Senokot-S] predniSONE 10 mg PO DAILY 03/15/23 03/15/23 Previous Rx's Medication Instructions Recorded Albuterol Inhaler [Ventolin Hfa 2 puff INHALATION RT-QID PRN each 01/16/23 Inhaler] Acetaminophen [Tylenol Extra 500 mg PO Q4HR PRN #0 03/11/23 Strength] Aspirin 325 mg PO DAILY #30 tab 03/11/23 Losartan [Cozaar] 50 mg PO DAILY #30 tab 03/11/23 Pantoprazole [Protonix] 40 mg PO AC-BRKFST #30 tab 03/11/23 Spironolactone [Aldactone] 25 mg PO DAILY #30 tab 03/11/23 metFORMIN HCL [Glucophage] 500 mg PO BID #60 tab 03/11/23 Apixaban [Eliquis] 5 mg PO BID #60 tab 03/16/23 Furosemide [Lasix] 40 mg PO DAILY #30 tablet 03/17/23 Metoprolol Tartrate [Lopressor] 100 mg PO BID 30 Days #60 tab 03/17/23 Allergies Allergy/AdvReac Type Severity Reaction Status Date / Time budesonide Allergy Wheezing Verified 03/22/23 19:13 fluticasone Allergy Rapid Verified 03/22/23 19:13 Heart Rate, dizziness formoterol Allergy Wheezing, Verified 03/22/23 19:13 [From Fanzy] Dizziness, Rapid Heart Rate, High BP glycopyrrolate Allergy Wheezing, Verified 03/22/23 19:13 [From Fanzy] Dizziness, Rapid Heart Rate, High BP levalbuterol [From Xopenex] Allergy Wheezing, Verified 03/22/23 19:13 Dizziness azithromycin [From Zithromax] AdvReac intercts Verified 03/22/23 19:13 w/Digoxin benzonatate AdvReac Gerd Verified 03/22/23 19:13 dexamethasone AdvReac Gerd Verified 03/22/23 19:13 doxycycline AdvReac Gerd Verified 03/22/23 19:13 ipratropium AdvReac Rapid Verified 03/22/23 19:13 Heart Rate pravastatin sodium AdvReac Swelling Verified 03/22/23 19:13 [From Pravachol] and pain in legs prednisone AdvReac causes Verified 03/22/23 19:13 thrush ranitidine AdvReac Nausea & Verified 03/22/23 19:13 Vomiting & Diarrhea Sulfa (Sulfonamide AdvReac Rash/Hives Verified 03/22/23 19:13 Antibiotics) Review of Systems ROS Statement: Those systems with pertinent positive or pertinent negative responses have been documented in the HPI. ROS Other: All systems not noted in ROS Statement are negative. Past Medical History Past Medical History: Asthma, Coronary Artery Disease (CAD), Diabetes Mellitus, GERD/Reflux, Hyperlipidemia, Osteoarthritis (OA) Additional Past Medical History / Comment(s): cardiomyopathy, elevated heart rate, overactive bladder, glaucoma, hx elevated sed rate,lelo knee pain-arthritis and elmore cyst, covid in 09/2022 History of Any Multi-Drug Resistant Organisms: None Reported Past Surgical History: Appendectomy, Section, Coronary Bypass/CABG, Hysterectomy, Orthopedic Surgery Additional Past Surgical History / Comment(s): 3 left breast biopsies, 3 needle loc on right breast- pt states all benign. lelo rotator cuff repair, lelo. hammer toe and bunionectomy, trigger finger release lelo ring fingers, meniscus repair lelo knees, carpal tunnel lelo, rt thumb fusion, lt ankle surgery, D&C, bilateral cataract surgery and laser surgery, COLONOSCOPY , EGD WITH BIOPSY Past Anesthesia/Blood Transfusion Reactions: No Reported Reaction Additional Past Anesthesia/Blood Transfusion Reaction / Comment(s): slow to wake up from anesthesia. Past Psychological History: No Psychological Hx Reported Smoking Status: Former smoker Past Alcohol Use History: None Reported Past Drug Use History: None Reported - Past Family History Mother History Unknown: Yes Family Medical History: Congestive Heart Failure (CHF), CVA/TIA, Hypertension Son(s) History Unknown: Yes Family Medical History: Deep Vein Thrombosis (DVT) Additional Family Medical History / Comment(s): DVT IN LEG Father Family Medical History: Congestive Heart Failure (CHF), Hypertension General Exam Limitations: no limitations General appearance: alert, in no apparent distress Head exam: Present: normocephalic ENT exam: Present: mucous membranes moist Neck exam: Present: other (Trachea is in midline) Respiratory exam: Present: normal lung sounds bilaterally, other (There is very slight dehiscence of the lower margin of the patient's sternotomy wound; there is no drainage noted at this time; there is no erythema, warmth or tenderness; there is no evidence of infection). Absent: respiratory distress, wheezes, rales, rhonchi, stridor Cardiovascular Exam: Present: regular rate, normal rhythm, normal heart sounds, other (Normal radial pulses bilaterally) GI/Abdominal exam: Present: soft. Absent: distended, tenderness, guarding Extremities exam: Absent: pedal edema Neurological exam: Present: alert, oriented X3 Psychiatric exam: Present: normal affect, normal mood Skin exam: Present: warm, dry, normal color Course Vital Signs 03/22/23 19:13 Temperature 98.4 F Pulse Rate 97 Respiratory 16 Rate Blood Pressure 121/78 O2 Sat by Pulse 100 Oximetry Medical Decision Making - Medical Decision Making Was pt. sent in by a medical professional or institution (JAVIER Pope, OUTPATIENT ADMITTING CLERK, urgent care, hospital, or long term...) When possible be specific @ -No Did you speak to anyone other than the patient for history (EMS, parent, family, police, friend...)? What history was obtained from this source @ -No Did you review nursing and triage notes (agree or disagree)? Why? @ -I reviewed and agree with nursing and triage notes Were old charts reviewed (outside hosp., previous admission, EMS record, old EKG, old radiological studies, urgent care reports/EKG's, long term records)? Report findings @ -No old charts were reviewed Differential Diagnosis (chest pain, altered mental status, abdominal pain women, abdominal pain men, vaginal bleeding, weakness, fever, dyspnea, syncope, headache, dizziness, GI bleed, back pain, seizure, CVA, palpatations, mental health, musculoskeletal)? @ -Wound evaluation, wound dehiscence, wound drainage, wound infection, seroma, healing wound EKG interpreted by me (3pts min.). @ -None done X-rays interpreted by me (1pt min.). @ -None done CT interpreted by me (1pt min.). @ -None done U/S interpreted by me (1pt. min.). @ -None done What testing was considered but not performed or refused? (CT, X-rays, U/S, labs)? Why? @ -None What meds were considered but not given or refused? Why? @ -None Did you discuss the management of the patient with other professionals (professionals i.e. JAVIER Pope, OUTPATIENT ADMITTING CLERK, lab, RT, psych nurse, rn social services, medical doctor md, teacher, booking police officer, trimming caser)? Give summary @ -No Was smoking cessation discussed for >3mins.? @ -No Was critical care preformed (if so, how long)? @ -No Were there social determinants of health that impacted care today? How? (Homelessness, low income, unemployed, alcoholism, drug addiction, transportation, low edu. Level, literacy, decrease access to med. care, penitentiary, rehab)? @ -No Was there de-escalation of care discussed even if they declined (Discuss DNR or withdrawal of care, Hospice)? DNR status @ -No What co-morbidities impacted this encounter? (DM, HTN, Smoking, COPD, CAD, Cancer, CVA, ARF, Chemo, Hep., AIDS, mental health diagnosis, sleep apnea, morbid obesity)? @ -None Was patient admitted / discharged? Hospital course, mention meds given and route, prescriptions, significant lab abnormalities, going to OR and other pertinent info. @ -Patient is noted to have mild dehiscence of the lower margin of her sternotomy wound without any evidence of infection at this time. Patient is afebrile. Patient is breathing comfortably with a normal room air oxygen saturation. Patient denies having any chest pain or dyspnea. I do not suspect a wound infection or an emergent medical condition at this time. Patient was counseled about wound care, and she was clearly explained return and follow-up instructions. Patient was instructed to follow up with her cutter v groove and her cardiothoracic surgeon as scheduled. Patient and son feel comfortable with this plan. Undiagnosed new problem with uncertain prognosis? @ -No Drug Therapy requiring intensive monitoring for toxicity (Heparin, Nitro, Insulin, Cardizem)? @ -No Were any procedures done? @ -No Diagnosis/symptom? @ -Surgical wound evaluation/minor surgical wound dehiscence Acute, or Chronic, or Acute on Chronic? @ -Subacute Uncomplicated (without systemic symptoms) or Complicated (systemic symptoms)? @ -default Side effects of treatment? @ -No Exacerbation, Progression, or Severe Exacerbation? @ -No Poses a threat to life or bodily function? How? (Chest pain, [place], [place], pneumonia, PE, COPD, DKA, ARF, appy, cholecystitis, CVA, Diverticulitis, Homicidal, Suicidal, threat to staff... and all critical care pts) @ -No Disposition Clinical Impression: Surgical wound dehiscence, Visit for wound check Disposition: HOME SELF-CARE Condition: Stable Instructions (If sedation given, give patient instructions): Wound Dehiscence (ED), Acute Wound Care (ED) Additional Instructions: Return to the ER immediately if you develop pain around her wound, foul-smelling drainage from your wound, redness around her wound, a fever, chest pain, shortness of breath, feeling dizzy or faint, or new or worsening symptoms. Follow up closely with your primary care provider, as well as your cutter v groove and your cardiothoracic surgeon. Is patient prescribed a controlled substance at d/c from ED?: No Referrals: Magnus Pearson MD [Primary Care Provider] - 1-2 days Arias Negrete MD [STAFF PHYSICIAN] - 1-2 days Barak Jackson MD [STAFF PHYSICIAN] - 1-2 days Time of Disposition: 19:48
[2023-03-22 20:43] VITALS: BP 115/85; PULSE 73; TEMP 97.8
== END 2023-03-22 20:42 | disposition home or self-care (01) ==
LOC: EC 19:03
DX: T81.31XA Disruption of external operation (surgical) wound, not elsewhere classified, initial encounter (principal); E11.9 Type 2 diabetes mellitus without complications; I25.10 Atherosclerotic heart disease of native coronary artery without angina pectoris; J45.909 Unspecified asthma, uncomplicated; E78.5 Hyperlipidemia, unspecified; Z79.52 Long term (current) use of systemic steroids; Z79.899 Other long term (current) drug therapy; Z87.891 Personal history of nicotine dependence; Z88.1 Allergy status to other antibiotic agents; Z88.2 Allergy status to sulfonamides; Z88.8 Allergy status to other drugs, medicaments and biological substances; Z86.16 Personal history of COVID-19; Z95.1 Presence of aortocoronary bypass graft; Z90.49 Acquired absence of other specified parts of digestive tract
CPT/HCPCS: 99283

== ENCOUNTER 2023-03-26 11:44 | Inpatient (IN) | payer MEDICARE, MEDICAID ==
[2023-03-26] MEDS ORDERED: ACETAMINOPHEN TAB 500 MG TAB PO STA (11:57)
--- NOTE | 2023-03-26 12:24 | ED ---
Chest Pain HPI - General Source: patient, EMS, RN notes reviewed Mode of arrival: EMS Limitations: no limitations <Moise Gabriel - Last Filed: 03/26/23 12:40> <Jamari Posada - Last Filed: 03/26/23 16:52> - General Chief Complaint: Chest Pain Stated Complaint: weakness Time Seen by Provider: 03/26/23 11:51 - History of Present Illness Initial Comments: 78-year-old male presents emergency Department with chief complaint of chest wall pain. Patient states that she had mitral valve replacement and CABG appr oximately one month ago by Dr. Astorga. Patient states that she has had some opening to the lower incisional wound. Patient has been followed very closely outpatient she was. Follow up today in office but felt that it was worse so she presented emergency department. is found to be febrile denies any something cough, congestion. Patient denies any recent acetaminophen. She has no dysuria. (Moise Gabriel) - Related Data Home Medications Medication Instructions Recorded Confirmed Rosuvastatin Calcium [Crestor] 5 mg PO DAILY 07/16/14 03/26/23 Solifenacin Succinate [Vesicare] 10 mg PO HS 07/16/14 03/26/23 Latanoprost Ophth [Xalatan 0.005%] 1 drop BOTH EYES HS 08/17/17 03/26/23 Carboxymethylcellulose Sodium 1 drop BOTH EYES TID PRN 11/16/22 03/26/23 [Refresh Tears] Multivit with Calcium,Iron,Min 1 tab PO DAILY 11/16/22 03/26/23 [Women's Multivitamin] Ascorbic Acid [Vitamin C] 500 mg PO DAILY 12/03/22 03/26/23 Sennosides-Docusate Sodium 2 tab PO HS PRN 03/15/23 03/26/23 [Senokot-S] predniSONE 10 mg PO DAILY 03/15/23 03/26/23 Previous Rx's Medication Instructions Recorded Albuterol Inhaler [Ventolin Hfa 2 puff INHALATION RT-QID PRN each 01/16/23 Inhaler] Acetaminophen [Tylenol Extra 500 mg PO Q4HR PRN #0 03/11/23 Strength] Aspirin 325 mg PO DAILY #30 tab 03/11/23 Losartan [Cozaar] 50 mg PO DAILY #30 tab 03/11/23 Pantoprazole [Protonix] 40 mg PO AC-BRKFST #30 tab 03/11/23 Spironolactone [Aldactone] 25 mg PO DAILY #30 tab 03/11/23 metFORMIN HCL [Glucophage] 500 mg PO BID #60 tab 03/11/23 Apixaban [Eliquis] 5 mg PO BID #60 tab 03/16/23 Furosemide [Lasix] 40 mg PO DAILY #30 tablet 03/17/23 Metoprolol Tartrate [Lopressor] 100 mg PO BID 30 Days #60 tab 03/17/23 Allergies Allergy/AdvReac Type Severity Reaction Status Date / Time Sulfa (Sulfonamide Allergy Rash/Hives Verified 03/26/23 12:39 Antibiotics) azithromycin [From Zithromax] AdvReac intercts Verified 03/26/23 12:39 w/Digoxin benzonatate AdvReac Gerd Verified 03/26/23 12:39 budesonide AdvReac Wheezing Verified 03/26/23 12:39 dexamethasone AdvReac Gerd Verified 03/26/23 12:39 doxycycline AdvReac Gerd Verified 03/26/23 12:39 fluticasone AdvReac Rapid Verified 03/26/23 12:39 Heart Rate, dizziness formoterol AdvReac Wheezing, Verified 03/26/23 12:39 [From [employer]] Dizziness, Rapid Heart Rate, High BP glycopyrrolate AdvReac Wheezing, Verified 03/26/23 12:39 [From Brandtreeztri Aerosphere] Dizziness, Rapid Heart Rate, High BP ipratropium AdvReac Rapid Verified 03/26/23 12:39 Heart Rate levalbuterol [From Xopenex] AdvReac Wheezing, Verified 03/26/23 12:39 Dizziness pravastatin sodium AdvReac Swelling Verified 03/26/23 12:39 [From Pravachol] and pain in legs prednisone AdvReac causes Verified 03/26/23 12:39 thrush ranitidine AdvReac Nausea & Verified 03/26/23 12:39 Vomiting & Diarrhea Review of Systems ROS Other: All systems not noted in ROS Statement are negative. <Moise Gabriel - Last Filed: 03/26/23 12:40> ROS Other: All systems not noted in ROS Statement are negative. <Jamari Posada - Last Filed: 03/26/23 16:52> ROS Statement: Those systems with pertinent positive or pertinent negative responses have been documented in the HPI. EKG Findings - EKG Comments: EKG Findings:: 11:59 sinus tachycardia rate of 11 DE 166 QRS 101 QT/QTC 338/396 - EKG Results: EKG: interpreted by ERMD <Moise Gabriel - Last Filed: 03/26/23 12:40> Past Medical History Past Medical History: Asthma, Coronary Artery Disease (CAD), Diabetes Mellitus, GERD/Reflux, Hyperlipidemia, Osteoarthritis (OA) Additional Past Medical History / Comment(s): cardiomyopathy, elevated heart rate, overactive bladder, glaucoma, hx elevated sed rate,lelo knee pain-arthritis and elmore cyst, covid in 09/2022 History of Any Multi-Drug Resistant Organisms: None Reported Past Surgical History: Appendectomy, Section, Coronary Bypass/CABG, Hysterectomy, Orthopedic Surgery Additional Past Surgical History / Comment(s): 3 left breast biopsies, 3 needle loc on right breast- pt states all benign. lelo rotator cuff repair, lelo. hammer toe and bunionectomy, trigger finger release lelo ring fingers, meniscus repair lelo knees, carpal tunnel lelo, rt thumb fusion, lt ankle surgery, D&C, bilateral cataract surgery and laser surgery, COLONOSCOPY , EGD WITH BIOPSY Past Anesthesia/Blood Transfusion Reactions: No Reported Reaction Additional Past Anesthesia/Blood Transfusion Reaction / Comment(s): slow to wake up from anesthesia. Past Psychological History: No Psychological Hx Reported Smoking Status: Former smoker Past Alcohol Use History: None Reported Past Drug Use History: None Reported - Past Family History Mother History Unknown: Yes Family Medical History: Congestive Heart Failure (CHF), CVA/TIA, Hypertension Son(s) History Unknown: Yes Family Medical History: Deep Vein Thrombosis (DVT) Additional Family Medical History / Comment(s): DVT IN LEG Father Family Medical History: Congestive Heart Failure (CHF), Hypertension <Moise Gabriel - Last Filed: 03/26/23 12:40> General Exam Limitations: no limitations General appearance: alert, in no apparent distress Head exam: Present: atraumatic, normocephalic, normal inspection Eye exam: Present: normal appearance, PERRL, EOMI. Absent: scleral icterus, conjunctival injection, periorbital swelling ENT exam: Present: normal exam, mucous membranes moist Neck exam: Present: normal inspection, full ROM. Absent: tenderness, meningismus, lymphadenopathy Respiratory exam: Present: normal lung sounds bilaterally, chest wall tenderness, other (Lower incisional wound dehiscence, small amount of drainage). Absent: respiratory distress, wheezes, rales, rhonchi, stridor Cardiovascular Exam: Present: normal rhythm, tachycardia, normal heart sounds. Absent: systolic murmur, diastolic murmur, rubs, gallop, clicks <Moise Gabriel - Last Filed: 03/26/23 12:40> Course <Jamari Posada - Last Filed: 03/26/23 16:52> Vital Signs 03/26/23 03/26/23 03/26/23 11:46 13:53 16:27 Temperature 101.1 F H 98.5 F Pulse Rate 103 H 98 92 Respiratory 19 18 18 Rate Blood Pressure 130/76 130/76 102/59 O2 Sat by Pulse 99 98 98 Oximetry - Reevaluation(s) Reevaluation #1: 03/26/23 16:[address] Jackson in the emergency department, covering for cardiothoracic surgery. Requests patient be admitted to internal medicine. (Jamari Posada) Chest Pain MDM <Jamari Posada - Last Filed: 03/26/23 16:52> - MDM Was pt. sent in by a medical professional or institution (, PA, ROAD ENGINEER, urgent care, hospital, or correction...) When possible be specific @ -No Did you speak to anyone other than the patient for history (EMS, parent, family, police, friend...)? What history was obtained from this source @ -No Did you review nursing and triage notes (agree or disagree)? Why? @ -I reviewed and agree with nursing and triage notes Were old charts reviewed (outside hosp., previous admission, EMS record, old EKG, old radiological studies, urgent care reports/EKG's, correction records)? Report findings @ Recent bypass and valve replacement Differential Diagnosis (chest pain, altered mental status, abdominal pain women, abdominal pain men, vaginal bleeding, weakness, fever, dyspnea, syncope, headache, dizziness, GI bleed, back pain, seizure, CVA, palpatations, mental health, musculoskeletal)? @ Differential Fever: Pneumonia, viral URI, endocarditis, myocarditis, pericarditis, otitis, sinusitis, peritonsillar Abscess, retropharyngeal Abscess, epiglottitis, peritonitis, appendicitis, Birgit cystitis, diverticulitis, hepatitis, colitis, UTI, PID, TOA, pyelonephritis, prostatitis, epididymitis, meningitis, encephalitis, pulmonary embolism, CVA, thyroid storm, pancreatitis, adrenal crisis, cavernous sinus thrombosis, this is not meant to be an all-inclusive list. EKG interpreted by me (3pts min.). @ -As above X-rays interpreted by me (1pt min.). @ -None done CT interpreted by me (1pt min.). @ Showing fat stranding and subcutaneous gas suggestive of infection. U/S interpreted by me (1pt. min.). @ -None done What testing was considered but not performed or refused? (CT, X-rays, U/S, labs)? Why? @ -None What meds were considered but not given or refused? Why? @ -None Did you discuss the management of the patient with other professionals (professionals i.e. , PA, ROAD ENGINEER, lab, RT, psych nurse, web content & social media manager, painter touch up, teacher, bank operations officer, behavioral health case manager)? Give summary @ Case discussed with Collins Degroot and cardiothoracic surgery Dr. Jackson, [facility] Was smoking cessation discussed for >3mins.? @ -No Was critical care preformed (if so, how long)? @ -No Were there social determinants of health that impacted care today? How? (Homelessness, low income, unemployed, alcoholism, drug addiction, transportation, low edu. Level, literacy, decrease access to med. care, senior care, rehab)? @ -No Was there de-escalation of care discussed even if they declined (Discuss DNR or withdrawal of care, Hospice)? DNR status @ -No What co-morbidities impacted this encounter? (DM, HTN, Smoking, COPD, CAD, Cancer, CVA, ARF, Chemo, Hep., AIDS, mental health diagnosis, sleep apnea, morbid obesity)? @ -None Was patient admitted / discharged? Hospital course, mention meds given and route, prescriptions, significant lab abnormalities, going to OR and other pertinent info. @ Patient admitted for IV antibiotics. Patient has elevated white blood cell count, elevated lactic acid, CT evidence of postop infection. Undiagnosed new problem with uncertain prognosis? @ -No Drug Therapy requiring intensive monitoring for toxicity (Heparin, Nitro, Insulin, Cardizem)? @ -No Were any procedures done? @ -No Acute, or Chronic, or Acute on Chronic? @ -Acute Diagnosis: Postop infection, sepsis Uncomplicated (without systemic symptoms) or Complicated (systemic symptoms)? @Complicated Side effects of treatment? @ -No Exacerbation, Progression, or Severe Exacerbation? @ -No Poses a threat to life or bodily function? How? (Chest pain, [place], [place], pneumonia, PE, COPD, DKA, ARF, appy, cholecystitis, CVA, Diverticulitis, Homicidal, Suicidal, threat to staff... and all critical care pts) @ -Yes, progressive infection, septic shock (Jamari Posada) Disposition <Moise Gabriel - Last Filed: 03/26/23 12:40> Is patient prescribed a controlled substance at d/c from ED?: No Time of Disposition: 16:49 <Jamari Posada - Last Filed: 03/26/23 16:52> Clinical Impression: Sepsis, Postoperative infection Disposition: ADMITTED IP TO THIS HOSP Condition: Stable Referrals: Magnus Pearson MD [Primary Care Provider] - 1-2 days
[2023-03-26] MEDS ORDERED: RX INFO: IV CONTRAST WAS GIVEN 1 EACH MISC MISCELLANE PRN (12:38)
--- NOTE | 2023-03-26 12:53 | XR ---
EXAMINATION TYPE: XR chest 2V DATE OF EXAM: 03/26/2023 COMPARISON: Chest x-ray March 17, 2023 HISTORY: Chest pain. Recent open cardiac surgery March 02. Fever and weakness. TECHNIQUE: Frontal and lateral views of the chest are obtained. FINDINGS: Overlying sternal wires along with mediastinal clips and left atrial appendage clip and car diac valvular rings are all redemonstrated . There is no suspicious new focal air space opacity, pleu ral effusion, or pneumothorax seen. Cardiomegaly is redemonstrated. Metallic anchor right humeral hea d level again seen. Persistent lateral left midlung linear scarring and/or atelectasis. IMPRESSION: Cardiomegaly without suspicious new acute pulmonary process.
[2023-03-26 13:24] LABS: INR 1.2 (<1.2); Partial Thromboplastin Time 24.3 sec (22.0-30.0); Prothrombin Time 12.5 sec (9.0-12.0)
[2023-03-26 13:31] LABS: Basophils % (A) 0 %; Eosinophils # (A) 0.1 k/uL (0-0.7); Eosinophils % (A) 0 %; HCT 33.1 % (34.0-46.0); HGB 10.3 gm/dL (11.4-16.0); Hypochromasia Marked; Lymphocytes # (A) 2.3 k/uL (1.0-4.8); Lymphocytes % (A) 9 %; MCV 83.9 fL (80.0-100.0); Mean Platelet Volume 7.5; Monocytes # (A) 1.5 k/uL (0-1.0); Monocytes % (A) 6 %; Neutrophils # (A) 20.9 k/uL (1.3-7.7); Neutrophils % (A) 83 %; Platelet Count 540 k/uL (150-450); Poikilocytosis Slight; RBC 3.95 m/uL (3.80-5.40); RDW 14.7 % (11.5-15.5); WBC 25.1 k/uL (3.8-10.6)
[2023-03-26] MEDS ORDERED: VANCOMYCIN IV PER PHARMACY 1 EACH MISC MISCELLANE PRN (14:18)
[2023-03-26] MEDS ORDERED: VANCOMYCIN 1,500 MG in SODIUM CHLORIDE 0.9% 500 ML 500 ML IVPB ONE (14:30)
[2023-03-26 14:51] LABS: Appearance,Urine Clear (Clear); Bilirubin,Urine Negative (Negative); Blood,Urine Trace (Negative); Color,Urine Yellow; Glucose,Urine (UA) Negative (Negative); Ketones,Urine Negative (Negative); Leukocyte Esterase,Urine Trace (Negative); Mucus,Urine Rare /hpf; Nitrite,Urine Negative (Negative); PH, Urine 5.5 (5.0-8.0); Protein,Urine 1+ (Negative); RBC,Urine 2 /hpf (0-5); Specific Gravity,Urine 1.023 (1.001-1.035); Squamous Epithelial Cell,Urine <1 /hpf (0-4); WBC,Urine <1 /hpf (0-5)
[2023-03-26 15:26] LABS: Albumin 3.7 g/dL (3.5-5.0); Calcium 9.8 mg/dL (8.4-10.2); Magnesium 1.6 mg/dL (1.6-2.3); Potassium 4.8 mmol/L (3.5-5.1); Total Bilirubin 1.2 mg/dL (0.2-1.3); Total Protein 6.7 g/dL (6.3-8.2)
--- NOTE | 2023-03-26 16:14 | CT ---
EXAMINATION TYPE: CT chest w con CT DLP: 357.8 mGycm, Automated exposure control for dose reduction was used. DATE OF EXAM: 03/26/2023 4:04 PM COMPARISON: Chest radiograph 03/26/2023 CLINICAL INDICATION:Female, 78 years old with history of pain, infection; Recent open heart sx March 02. Chest pain and infection. TECHNIQUE: Multiple axial images were obtained through the chest. Sagittal and coronal reformats were created for review. Contrast used:100 mL of Isovue 370 with IV Contrast Oral contrast used: none. FINDINGS: LUNGS/ PLEURA: Trace right pleural effusion. No evidence of focal consolidation or pneumothorax. The pulmonary edema AIRWAY: Patent and unremarkable. HEART: Mitral valve repair changes. MEDIASTINUM: No gross evidence of adenopathy. VASCULATURE: No aortic aneurysm. Evaluation of the pulmonary arterial vasculature does not demonstra te pulmonary embolus. MUSCULOSKELETAL: There is postsurgical changes sternum with adjacent fat stranding changes tracking a long the sternum from both the superficial and deep aspect. There are foci of gas present in the ante rior aspect of the sternum. The phlegmonous change does appear to be deep to the sternum as well. No deep organizing fluid collection visualized. No osseous erosion definitively visualized. SOFT TISSUES/LYMPH NODES: Unremarkable. LOWER NECK: No significant findings. UPPER ABDOMEN: No significant findings. IMPRESSION: Sternotomy changes with fat stranding along the superficial and deep aspects of the sternum. Some of this may be secondary to healing changes. Given multiple foci of gas present in the superficial surgi lit bed just anterior to the sternum a superimposed infection is suggested given time since surgery o n 03/02/2023. No drainable fluid collection visualized in the superficial and deep portions however it should be noted that CT is not great differentiating soft tissues. Trace right pleural effusion.
[2023-03-26] MEDS ORDERED: NALOXONE 0.4 MG/ML 1 ML VIAL IV PRN (16:46)
[2023-03-26 20:02] LABS: Glucose,Whole Blood 240 mg/dL (70-110)
[2023-03-27] MEDS: ACETAMINOPHEN TAB 325 MG TAB PO PRN ×3 (00:27→22:33)
[2023-03-27 06:03] LABS: Glucose,Whole Blood 130 mg/dL (70-110)
[2023-03-27] MEDS ORDERED: ARTIFICIAL TEARS-HYPROMELLOSE DROPS 15 ML BTL BOTH EYES PRN (06:39)
[2023-03-27] MEDS ORDERED: ALBUTEROL NEBULIZED 2.5 MG/3 ML INHALATION PRN (06:39)
[2023-03-27] MEDS: SPIRONOLACTONE 25 MG TAB PO SCH (07:38)
[2023-03-27] MEDS: FUROSEMIDE 40 MG TAB PO SCH (07:39)
[2023-03-27] MEDS: ASCORBIC ACID 500 MG TAB PO SCH (07:39)
[2023-03-27] MEDS: PANTOPRAZOLE 40 MG TABLET PO SCH (07:39)
[2023-03-27] MEDS: ASPIRIN 81 MG PO SCH (07:39)
[2023-03-27] MEDS: LOSARTAN 50 MG TAB PO SCH (07:39)
[2023-03-27] MEDS: ATORVASTATIN 10 MG TAB PO SCH (07:39)
[2023-03-27] MEDS: metFORMIN 500 MG TAB PO SCH ×2 (07:39→20:30)
[2023-03-27] MEDS: METOPROLOL TARTRATE 50 MG TAB PO SCH ×2 (07:39→20:30)
[2023-03-27] MEDS: predniSONE 10 MG TAB PO SCH (07:39)
[2023-03-27] MEDS: MULTIVITAMINS, THERA 1 EACH TAB PO SCH (07:39)
[2023-03-27] MEDS ORDERED: HEPARIN SODIUM,PORCINE/PF 5,000 UNIT/0.5 ML SYRINGE SQ SCH (08:00)
[2023-03-27 08:28] LABS: Basophils % (A) 0 %; Eosinophils # (A) 0.1 k/uL (0-0.7); Eosinophils % (A) 1 %; HGB 10.1 gm/dL (11.4-16.0); Hypochromasia Marked; Lymphocytes # (A) 2.1 k/uL (1.0-4.8); Lymphocytes % (A) 11 %; MCH 26.2 pg (25.0-35.0); MCHC 29.7 g/dL (31.0-37.0); MCV 88.4 fL (80.0-100.0); Mean Platelet Volume 7.3; Monocytes % (A) 6 %; Neutrophils # (A) 14.9 k/uL (1.3-7.7); Neutrophils % (A) 81 %; Platelet Count 500 k/uL (150-450); RBC 3.84 m/uL (3.80-5.40); RDW 14.9 % (11.5-15.5); WBC 18.4 k/uL (3.8-10.6)
[2023-03-27 08:47] LABS: Albumin 3.5 g/dL (3.5-5.0); Calcium 9.9 mg/dL (8.4-10.2); Magnesium 1.8 mg/dL (1.6-2.3); Potassium 4.6 mmol/L (3.5-5.1); Total Bilirubin 0.8 mg/dL (0.2-1.3); Total Protein 6.6 g/dL (6.3-8.2)
[2023-03-27] MEDS ORDERED: DEXTROSE 50% SYRINGE 50 ML IVP PRN ×2 (08:52)
--- NOTE | 2023-03-27 09:28 | P.CONS ---
History of Present Illness - Reason for Consult Consult date: 03/27/23 wound care - History of Present Illness This is a 78-year-old patient being seen by the wound care center on for a mid chest surgical wound dehiscence. Patient states that she noticed on Thursday that the area of her incision had opened up slightly. She was seen in the office and absorptive silver was applied to the site. Patient was to return on for a recheck however she felt very poorly and went to the hospital. There she underwent a CT that showed sternotomy changes with fat stranding along the superficial and deep aspects of the sternum. Some of this may be secondary to healing changes. Given multiple foci of gas present in the official surgical bed just anterior to the sternum as superimposed infection as suggested given time since surgery on 03/02/2023. No drainable fluid collection visualized in the superficial and deep portions however it should be noted that CT is not great differentiate soft tissues. Patient has a open ulceration with muscle involvement without necrosis measuring approximately 3 x 2.5 x 2.5 cm undermining noted, granulation noted within the wound bed with minimal slough. Review Of Systems: Constitutional: No fever, no chills, no night sweats. No weight change. No weakness, fatigue or lethargy. No daytime sleepiness. Integumentary:reports wounds, no lesions. No rash or pruritus. No unusual bruising. No change in hair or nails. Physical exam: General Appearance: Alert, cooperative, no distress, appears stated age. Skin: See HPI all other Skin color, texture, tugor normal, no rashes or lesions. Neurologic: Alert oriented x3 Assessment: 1. Nonhealing wound to anterior chest with muscle involvement without necrosis 2. Surgical wound dehiscence 3. Diabetes with skin ulceration Plan: 1.Anterior chest: Apply absorptive silver moisten, dry gauze, and border foam. If surgical debridement performed Apply negative pressure wound vac with white foam to undermining and black foam at 150 mm/Hg negative pressure. Patient to be seen in the wound care center next week upon discharge. Thank you for the consultation any questions please contact the wound care center DNP note has been reviewed and discussed with Dr. Quiroz and the impression and plan of care has been directed as dictated. Past Medical History Past Medical History: Asthma, Coronary Artery Disease (CAD), Diabetes Mellitus, GERD/Reflux, Hyperlipidemia, Osteoarthritis (OA) Additional Past Medical History / Comment(s): cardiomyopathy, elevated heart rate, overactive bladder, glaucoma, hx elevated sed rate,lelo knee pain-arthritis and elmore cyst, covid in 09/2022 History of Any Multi-Drug Resistant Organisms: None Reported Past Surgical History: Appendectomy, Section, Coronary Bypass/CABG, Hysterectomy, Orthopedic Surgery Additional Past Surgical History / Comment(s): 3 left breast biopsies, 3 needle loc on right breast- pt states all benign. lelo rotator cuff repair, lelo. hammer toe and bunionectomy, trigger finger release lelo ring fingers, meniscus repair lelo knees, carpal tunnel lelo, rt thumb fusion, lt ankle surgery, D&C, bilateral cataract surgery and laser surgery, COLONOSCOPY , EGD WITH BIOPSY Past Anesthesia/Blood Transfusion Reactions: No Reported Reaction Additional Past Anesthesia/Blood Transfusion Reaction / Comm: slow to wake up from anesthesia. Past Psychological History: No Psychological Hx Reported Smoking Status: Former smoker Past Alcohol Use History: None Reported Additional Past Alcohol Use History / Comment(s): STARTED SMOKING AT 20, quit IN 1973 QUIT SMOKED 1-1/2 PPD Past Drug Use History: None Reported - Past Family History Mother History Unknown: Yes Family Medical History: Congestive Heart Failure (CHF), CVA/TIA, Hypertension Son(s) History Unknown: Yes Family Medical History: Deep Vein Thrombosis (DVT) Additional Family Medical History / Comment(s): DVT IN LEG Father Family Medical History: Congestive Heart Failure (CHF), Hypertension Medications and Allergies Home Medications Medication Instructions Recorded Confirmed Type Rosuvastatin Calcium [Crestor] 5 mg PO DAILY 07/16/14 03/26/23 History Solifenacin Succinate [Vesicare] 10 mg PO HS 07/16/14 03/26/23 History Latanoprost Ophth [Xalatan 0.005%] 1 drop BOTH EYES HS 08/17/17 03/26/23 History Carboxymethylcellulose Sodium 1 drop BOTH EYES TID PRN 11/16/22 03/26/23 History [Refresh Tears] Multivit with Calcium,Iron,Min 1 tab PO DAILY 11/16/22 03/26/23 History [Women's Multivitamin] Ascorbic Acid [Vitamin C] 500 mg PO DAILY 12/03/22 03/26/23 History Albuterol Inhaler [Ventolin Hfa 2 puff INHALATION RT-QID PRN each 01/16/23 03/26/23 Rx Inhaler] Acetaminophen [Tylenol Extra 500 mg PO Q4HR PRN #0 03/11/23 03/26/23 Rx Strength] Aspirin 325 mg PO DAILY #30 tab 03/11/23 03/26/23 Rx Losartan [Cozaar] 50 mg PO DAILY #30 tab 03/11/23 03/26/23 Rx Pantoprazole [Protonix] 40 mg PO AC-BRKFST #30 tab 03/11/23 03/26/23 Rx Spironolactone [Aldactone] 25 mg PO DAILY #30 tab 03/11/23 03/26/23 Rx metFORMIN HCL [Glucophage] 500 mg PO BID #60 tab 03/11/23 03/26/23 Rx Sennosides-Docusate Sodium 2 tab PO HS PRN 03/15/23 03/26/23 History [Senokot-S] predniSONE 10 mg PO DAILY 03/15/23 03/26/23 History Apixaban [Eliquis] 5 mg PO BID #60 tab 03/16/23 03/26/23 Rx Furosemide [Lasix] 40 mg PO DAILY #30 tablet 03/17/23 03/26/23 Rx Metoprolol Tartrate [Lopressor] 100 mg PO BID 30 Days #60 tab 03/17/23 03/26/23 Rx Allergies Allergy/AdvReac Type Severity Reaction Status Date / Time Sulfa (Sulfonamide Allergy Rash/Hives Verified 03/26/23 12:39 Antibiotics) azithromycin [From Zithromax] AdvReac intercts Verified 03/26/23 12:39 w/Digoxin benzonatate AdvReac Gerd Verified 03/26/23 12:39 budesonide AdvReac Wheezing Verified 03/26/23 12:39 dexamethasone AdvReac Gerd Verified 03/26/23 12:39 doxycycline AdvReac Gerd Verified 03/26/23 12:39 fluticasone AdvReac Rapid Verified 03/26/23 12:39 Heart Rate, dizziness formoterol AdvReac Wheezing, Verified 03/26/23 12:39 [From Magnomatics] Dizziness, Rapid Heart Rate, High BP glycopyrrolate AdvReac Wheezing, Verified 03/26/23 12:39 [From Magnomatics] Dizziness, Rapid Heart Rate, High BP ipratropium AdvReac Rapid Verified 03/26/23 12:39 Heart Rate levalbuterol [From Xopenex] AdvReac Wheezing, Verified 03/26/23 12:39 Dizziness pravastatin sodium AdvReac Swelling Verified 03/26/23 12:39 [From Pravachol] and pain in legs prednisone AdvReac causes Verified 03/26/23 12:39 thrush ranitidine AdvReac Nausea & Verified 03/26/23 12:39 Vomiting & Diarrhea Physical Exam Vitals: Vital Signs Temp Pulse Pulse Resp BP BP Pulse Ox 03/27/23 09:10 94 L 03/27/23 07:37 99.9 F H 114 H 18 116/57 99 03/27/23 04:00 105 H 16 129/61 97 03/27/23 00:00 100 16 130/59 100 03/26/23 20:00 98.8 F 89 16 101/51 99 03/26/23 18:00 96.9 F L 92 18 105/52 98 03/26/23 17:29 85 18 109/66 98 03/26/23 16:27 98.5 F 92 18 102/59 98 03/26/23 13:53 98 18 130/76 98 03/26/23 11:46 101.1 F H 103 H 19 130/76 99 Intake and Output 03/26/23 03/27/23 03/27/23 22:59 06:59 14:59 Intake Total 485 Balance 485 Intake: Oral 485 Other: Voiding Method Bedpan Bedpan Toilet # Voids 1 Weight 77.564 kg Results CBC & Chem 7: 03/27/23 07:45 03/27/23 07:45 Labs: Abnormal Lab Results - Last 24 Hours (Table) 03/26/23 03/26/23 03/26/23 Range/Units 12:29 12:29 12:29 WBC 25.1 H (3.8-10.6) k/uL Hgb 10.3 L (11.4-16.0) gm/dL Hct 33.1 L (34.0-46.0) % MCHC (31.0-37.0) g/dL Plt Count 540 H (150-450) k/uL Neutrophils # 20.9 H (1.3-7.7) k/uL Monocytes # 1.5 H (0-1.0) k/uL PT 12.5 H (9.0-12.0) sec INR 1.2 H (<1.2) Sodium (137-145) mmol/L Chloride (98-107) mmol/L BUN (7-17) mg/dL Glucose (74-99) mg/dL POC Glucose (mg/dL) (70-110) mg/dL Plasma Lactic Acid Cuco (0.7-2.0) mmol/L Urine Protein 1+ H (Negative) Urine Blood Trace H (Negative) Ur Leukocyte Esterase Trace H (Negative) Urine Mucus Rare H (None) /hpf 03/26/23 03/26/23 03/26/23 Range/Units 13:54 13:54 20:00 WBC (3.8-10.6) k/uL Hgb (11.4-16.0) gm/dL Hct (34.0-46.0) % MCHC (31.0-37.0) g/dL Plt Count (150-450) k/uL Neutrophils # (1.3-7.7) k/uL Monocytes # (0-1.0) k/uL PT (9.0-12.0) sec INR (<1.2) Sodium 134 L (137-145) mmol/L Chloride 97 L (98-107) mmol/L BUN 22 H (7-17) mg/dL Glucose 163 H (74-99) mg/dL POC Glucose (mg/dL) 240 H (70-110) mg/dL Plasma Lactic Acid Cuco 2.7 H* (0.7-2.0) mmol/L Urine Protein (Negative) Urine Blood (Negative) Ur Leukocyte Esterase (Negative) Urine Mucus (None) /hpf 03/27/23 03/27/23 03/27/23 Range/Units 05:59 07:45 07:45 WBC 18.4 H (3.8-10.6) k/uL Hgb 10.1 L (11.4-16.0) gm/dL Hct (34.0-46.0) % MCHC 29.7 L (31.0-37.0) g/dL Plt Count 500 H (150-450) k/uL Neutrophils # 14.9 H (1.3-7.7) k/uL Monocytes # (0-1.0) k/uL PT (9.0-12.0) sec INR (<1.2) Sodium 136 L (137-145) mmol/L Chloride (98-107) mmol/L BUN (7-17) mg/dL Glucose 120 H (74-99) mg/dL POC Glucose (mg/dL) 130 H (70-110) mg/dL Plasma Lactic Acid Cuco (0.7-2.0) mmol/L Urine Protein (Negative) Urine Blood (Negative) Ur Leukocyte Esterase (Negative) Urine Mucus (None) /hpf Assessment and Plan (1) Non-pressure chronic ulcer of skin of other sites with muscle involvement without evidence of necrosis Current Visit: Yes Status: Acute Code(s): L98.495 - NON-PRS CHR ULC SKIN/ OTH SITE WITH MSL INVL W/O EVD OF NECR SNOMED Code(s): 23342304 (2) Disruption of external operation (surgical) wound, not elsewhere classified, initial encounter Current Visit: Yes Status: Acute Code(s): T81.31XA - DISRUPTION OF EXTERNAL OPERATION (SURGICAL) WOUND, NEC, INIT SNOMED Code(s): 042134903625812 (3) Type 2 diabetes mellitus with other skin ulcer Current Visit: Yes Status: Acute Code(s): E11.622 - TYPE 2 DIABETES MELLITUS WITH OTHER SKIN ULCER; L98.499 - NON-PRESSURE CHRONIC ULCER OF SKIN OF SITES W UNSP SEVERITY SNOMED Code(s): 094583519
--- NOTE | 2023-03-27 09:43 | P.GSCN ---
History of Present Illness Consult date: 03/27/23 Reason for Consult: sternal wound dehiscence Requesting physician: Jamari Posada History of present illness: This is a 78-year-old female patient who follows outpatient with Dr. Pearson for primary care, Dr. Negrete for cardiology, Dr. Swift for pulmonary. She has a previous medical history of coronary artery disease with left main disease and moderate to severe mitral regurgitation status post 2 vessel CABG and mitral valve repair 03/02/2023 with postoperative hypotension and acute delirium, cardiomyopathy/chronic systolic heart failure with decreased systolic functionand EF 35%, hypertriglyceridemia, asthma with multiple exacerbations and chronic steroids, severe restrictive lung disease, diabetes mellitus, previous tobacco dependence, GERD, osteoarthritis, COVID-19 infection in September 2022. She was discharged to home with home care after her open heart 03/11/23. She returned to [facility] 03/15/23 with complaints of continued shortness of breath despite adequate oxygenation on room air and stable chest x-ray, was felt due to chronic systolic heart failure, however during that observation admission she was found to have left lower extremity DVT and was discharged to home 03/17/23 on Eliquis for anticoagulation to follow up with cardiology, pulmonology, internal medicine and cardiac surgery as scheduled. She was again seen in the ER 03/22/23 as she was worried about dehiscence at the inferior portion of her sternal incision. She was afebrile, there was no drainage or foul smell from the area, patient reported no chest pain or shortness of breath, and patient was discharged from the ER to follow up with cardiac surgeon. She was seen in the surgery office 03/24/23, her wound was packed with absorptive silver, and she was scheduled to come back into surgery office 03/26/23 for re- evaluation. Unfortunately she wasn't feeling well and came into the ER at [facility] instead. Lab work revealed WBC 25.1, Hgb 10.3, creat 0.86, lactic acid 2.7 which came down to 1.6. CXR revealed chronic cardiomegaly. CT of the chest reported postsurgical changes with fat stranding along the sternum with gas present at the anterior aspect of the sternum without organizing fluid collection and no osseous errosion present. The patient was started on IV vancomycin and admitted for evaluation and treatment with consultation placed to cardiac surgery. Review of Systems ROS was completed and was negative except as noted - Integumentary Reports wounds Past Medical History Past Medical History: Asthma, Coronary Artery Disease (CAD), Diabetes Mellitus, Deep Vein Thrombosis (DVT), GERD/Reflux, Hyperlipidemia, Osteoarthritis (OA) Additional Past Medical History / Comment(s): cardiomyopathy, elevated heart rate, overactive bladder, glaucoma, hx elevated sed rate,lelo knee pain-arthritis and elmore cyst, covid in 09/2022; left lower extremity DVT 02/2023 History of Any Multi-Drug Resistant Organisms: None Reported Past Surgical History: Appendectomy, Section, Coronary Bypass/CABG, Hysterectomy, Orthopedic Surgery Additional Past Surgical History / Comment(s): 3 left breast biopsies, 3 needle loc on right breast- pt states all benign. lelo rotator cuff repair, lelo. hammer toe and bunionectomy, trigger finger release lelo ring fingers, meniscus repair lelo knees, carpal tunnel lelo, rt thumb fusion, lt ankle surgery, D&C, bilateral cataract surgery and laser surgery, COLONOSCOPY , EGD WITH BIOPSY; 2 vessel cabg w/ mitral repair 03/02/23 Past Anesthesia/Blood Transfusion Reactions: No Reported Reaction Additional Past Anesthesia/Blood Transfusion Reaction / Comm: slow to wake up from anesthesia. Past Psychological History: No Psychological Hx Reported Smoking Status: Former smoker Past Alcohol Use History: None Reported Additional Past Alcohol Use History / Comment(s): STARTED SMOKING AT 20, quit IN 1973 QUIT SMOKED 1-1/2 PPD Past Drug Use History: None Reported - Past Family History Mother History Unknown: Yes Family Medical History: Congestive Heart Failure (CHF), CVA/TIA, Hypertension Son(s) History Unknown: Yes Family Medical History: Deep Vein Thrombosis (DVT) Additional Family Medical History / Comment(s): DVT IN LEG Father Family Medical History: Congestive Heart Failure (CHF), Hypertension Medications and Allergies Home Medications Medication Instructions Recorded Confirmed Type Rosuvastatin Calcium [Crestor] 5 mg PO DAILY 07/16/14 03/26/23 History Solifenacin Succinate [Vesicare] 10 mg PO HS 07/16/14 03/26/23 History Latanoprost Ophth [Xalatan 0.005%] 1 drop BOTH EYES HS 08/17/17 03/26/23 History Carboxymethylcellulose Sodium 1 drop BOTH EYES TID PRN 11/16/22 03/26/23 History [Refresh Tears] Multivit with Calcium,Iron,Min 1 tab PO DAILY 11/16/22 03/26/23 History [Women's Multivitamin] Ascorbic Acid [Vitamin C] 500 mg PO DAILY 12/03/22 03/26/23 History Albuterol Inhaler [Ventolin Hfa 2 puff INHALATION RT-QID PRN each 01/16/23 03/26/23 Rx Inhaler] Acetaminophen [Tylenol Extra 500 mg PO Q4HR PRN #0 03/11/23 03/26/23 Rx Strength] Aspirin 325 mg PO DAILY #30 tab 03/11/23 03/26/23 Rx Losartan [Cozaar] 50 mg PO DAILY #30 tab 03/11/23 03/26/23 Rx Pantoprazole [Protonix] 40 mg PO AC-BRKFST #30 tab 03/11/23 03/26/23 Rx Spironolactone [Aldactone] 25 mg PO DAILY #30 tab 03/11/23 03/26/23 Rx metFORMIN HCL [Glucophage] 500 mg PO BID #60 tab 03/11/23 03/26/23 Rx Sennosides-Docusate Sodium 2 tab PO HS PRN 03/15/23 03/26/23 History [Senokot-S] predniSONE 10 mg PO DAILY 03/15/23 03/26/23 History Apixaban [Eliquis] 5 mg PO BID #60 tab 03/16/23 03/26/23 Rx Furosemide [Lasix] 40 mg PO DAILY #30 tablet 03/17/23 03/26/23 Rx Metoprolol Tartrate [Lopressor] 100 mg PO BID 30 Days #60 tab 03/17/23 03/26/23 Rx Allergies Allergy/AdvReac Type Severity Reaction Status Date / Time Sulfa (Sulfonamide Allergy Rash/Hives Verified 03/26/23 12:39 Antibiotics) azithromycin [From Zithromax] AdvReac intercts Verified 03/26/23 12:39 w/Digoxin benzonatate AdvReac Gerd Verified 03/26/23 12:39 budesonide AdvReac Wheezing Verified 03/26/23 12:39 dexamethasone AdvReac Gerd Verified 03/26/23 12:39 doxycycline AdvReac Gerd Verified 03/26/23 12:39 fluticasone AdvReac Rapid Verified 03/26/23 12:39 Heart Rate, dizziness formoterol AdvReac Wheezing, Verified 03/26/23 12:39 [From [employer]] Dizziness, Rapid Heart Rate, High BP glycopyrrolate AdvReac Wheezing, Verified 03/26/23 12:39 [From [employer]] Dizziness, Rapid Heart Rate, High BP ipratropium AdvReac Rapid Verified 03/26/23 12:39 Heart Rate levalbuterol [From Xopenex] AdvReac Wheezing, Verified 03/26/23 12:39 Dizziness pravastatin sodium AdvReac Swelling Verified 03/26/23 12:39 [From Pravachol] and pain in legs prednisone AdvReac causes Verified 03/26/23 12:39 thrush ranitidine AdvReac Nausea & Verified 03/26/23 12:39 Vomiting & Diarrhea Surgical - Exam Vital Signs Temp Pulse Resp BP Pulse Ox 101.1 F H 103 H 19 130/76 99 03/26/23 11:46 03/26/23 11:46 03/26/23 11:46 03/26/23 11:46 03/26/23 11:46 CONSTITUTIONAL: Awake and alert, appears comfortable, cooperative, well- developed, well-nourished, no pain, no acute distress, eating breakfast EYES: Pupils equal, round, reactive to light, normal ocular movement ENT: Moist mucous membranes without oral lesions present NECK: No masses, no bruits, trachea midline RESPIRATORY: Lungs sounds clear bilaterally. Respirations even, nonlabored. Currently on room air with oxygen saturation 97%. Strong cough. CARDIOVASCULAR: S1, S2 present. Regular rate and rhythm, sinus rhythm to sinus tach on telemetry. Sternum stable. Palpable peripheral pulses bilaterally. No edema present. No calf pain or tenderness noted. GASTROINTESTINAL: Abdomen soft, nontender, nondistended without masses or organomegaly noted. There is no rebound or guarding present. Active bowel sounds present 4 quadrants. GENITOURINARY: Deferred INTEGUMENTARY: Skin is warm. Area of inferior sternal incision with dehiscence, packed with absorptive silver. Left lower extremity EVH site without redness or drainage NEUROLOGIC: Cranial nerves II through XII intact, normal coordination, no obvious motor or sensory deficits, speech is normal MUSKULOSKELETAL: Able to move all extremities, strength equal bilaterally, normal posture PSYCHIATRIC: Alert and oriented to person place and time, flat affect, intact judgment and insight Results - Labs 04/03/23 09:33 04/03/23 09:33 Abnormal Lab Results - Last 24 Hours (Table) 03/26/23 03/26/23 03/26/23 Range/Units 12:29 12:29 12:29 WBC 25.1 H (3.8-10.6) k/uL Hgb 10.3 L (11.4-16.0) gm/dL Hct 33.1 L (34.0-46.0) % MCHC (31.0-37.0) g/dL Plt Count 540 H (150-450) k/uL Neutrophils # 20.9 H (1.3-7.7) k/uL Monocytes # 1.5 H (0-1.0) k/uL PT 12.5 H (9.0-12.0) sec INR 1.2 H (<1.2) Sodium (137-145) mmol/L Chloride (98-107) mmol/L BUN (7-17) mg/dL Glucose (74-99) mg/dL POC Glucose (mg/dL) (70-110) mg/dL Plasma Lactic Acid Cuco (0.7-2.0) mmol/L Urine Protein 1+ H (Negative) Urine Blood Trace H (Negative) Ur Leukocyte Esterase Trace H (Negative) Urine Mucus Rare H (None) /hpf 03/26/23 03/26/23 03/26/23 Range/Units 13:54 13:54 20:00 WBC (3.8-10.6) k/uL Hgb (11.4-16.0) gm/dL Hct (34.0-46.0) % MCHC (31.0-37.0) g/dL Plt Count (150-450) k/uL Neutrophils # (1.3-7.7) k/uL Monocytes # (0-1.0) k/uL PT (9.0-12.0) sec INR (<1.2) Sodium 134 L (137-145) mmol/L Chloride 97 L (98-107) mmol/L BUN 22 H (7-17) mg/dL Glucose 163 H (74-99) mg/dL POC Glucose (mg/dL) 240 H (70-110) mg/dL Plasma Lactic Acid Cuco 2.7 H* (0.7-2.0) mmol/L Urine Protein (Negative) Urine Blood (Negative) Ur Leukocyte Esterase (Negative) Urine Mucus (None) /hpf 03/27/23 03/27/23 03/27/23 Range/Units 05:59 07:45 07:45 WBC 18.4 H (3.8-10.6) k/uL Hgb 10.1 L (11.4-16.0) gm/dL Hct (34.0-46.0) % MCHC 29.7 L (31.0-37.0) g/dL Plt Count 500 H (150-450) k/uL Neutrophils # 14.9 H (1.3-7.7) k/uL Monocytes # (0-1.0) k/uL PT (9.0-12.0) sec INR (<1.2) Sodium 136 L (137-145) mmol/L Chloride (98-107) mmol/L BUN (7-17) mg/dL Glucose 120 H (74-99) mg/dL POC Glucose (mg/dL) 130 H (70-110) mg/dL Plasma Lactic Acid Cuco (0.7-2.0) mmol/L Urine Protein (Negative) Urine Blood (Negative) Ur Leukocyte Esterase (Negative) Urine Mucus (None) /hpf Diabetes panel 03/26/23 03/27/23 Range/Units 13:54 07:45 Sodium 134 L 136 L (137-145) mmol/L Potassium 4.8 4.6 (3.5-5.1) mmol/L Chloride 97 L 101 (98-107) mmol/L Carbon Dioxide 23 27 (22-30) mmol/L BUN 22 H 17 (7-17) mg/dL Creatinine 0.86 0.81 (0.52-1.04) mg/dL Glucose 163 H 120 H (74-99) mg/dL Calcium 9.8 9.9 (8.4-10.2) mg/dL AST 25 23 (14-36) U/L ALT 22 19 (4-34) U/L Alkaline Phosphatase 75 88 (38-126) U/L Total Protein 6.7 6.6 (6.3-8.2) g/dL Albumin 3.7 3.5 (3.5-5.0) g/dL Calcium panel 03/26/23 03/27/23 Range/Units 13:54 07:45 Calcium 9.8 9.9 (8.4-10.2) mg/dL Albumin 3.7 3.5 (3.5-5.0) g/dL Pituitary panel 03/26/23 03/27/23 Range/Units 13:54 07:45 Sodium 134 L 136 L (137-145) mmol/L Potassium 4.8 4.6 (3.5-5.1) mmol/L Chloride 97 L 101 (98-107) mmol/L Carbon Dioxide 23 27 (22-30) mmol/L BUN 22 H 17 (7-17) mg/dL Creatinine 0.86 0.81 (0.52-1.04) mg/dL Glucose 163 H 120 H (74-99) mg/dL Calcium 9.8 9.9 (8.4-10.2) mg/dL Adrenal panel 03/26/23 03/27/23 Range/Units 13:54 07:45 Sodium 134 L 136 L (137-145) mmol/L Potassium 4.8 4.6 (3.5-5.1) mmol/L Chloride 97 L 101 (98-107) mmol/L Carbon Dioxide 23 27 (22-30) mmol/L BUN 22 H 17 (7-17) mg/dL Creatinine 0.86 0.81 (0.52-1.04) mg/dL Glucose 163 H 120 H (74-99) mg/dL Calcium 9.8 9.9 (8.4-10.2) mg/dL Total Bilirubin 1.2 0.8 (0.2-1.3) mg/dL AST 25 23 (14-36) U/L ALT 22 19 (4-34) U/L Alkaline Phosphatase 75 88 (38-126) U/L Total Protein 6.7 6.6 (6.3-8.2) g/dL Albumin 3.7 3.5 (3.5-5.0) g/dL - Imaging Chest x-ray: report reviewed, image reviewed CT scan - chest: report reviewed, image reviewed EKG: image reviewed Assessment and Plan Assessment: Sternal incision dehiscence with superficial infection Leukocytosis Lactic acidosis, resolved History of coronary artery disease with left main disease status post 2 vessel CABG 03/02/23 History of moderate to severe mitral regurgitation status post mitral valve repair 03/02/2023 Postoperative hypotension and acute delirium, resolved Left lower extremity DVT on eliquis outpatient, last dose 03/25/23 am Cardiomyopathy/chronic systolic heart failure with decreased systolic functionand EF 35% Hypertriglyceridemia, TG 201 Asthma with multiple exacerbations and chronic steroids Severe restrictive lung disease, FEV1 42% of predicted Diabetes mellitus, A1c 6.9% Previous tobacco dependence GERD Osteoarthritis COVID-19 infection in September 2022 Plan: The patient was seen and examined yesterday in the emergency room and again this morning on the cardiac stepdown unit. Chart/diagnostics were reviewed. The case was discussed in detail with Dr. Jackson and Dr. Astorga yesterday. We ordered wound care to see her, for now she will have absorptive silver dressing changes. She will require wound vac at some point and appointment will be made to follow up in wound center. Continue antibiotics. Home medications reordered, will hold Eliquis for now in case we take her for surgical debridement, will initiate low dose heparin drip. Sternal precautions remain in place. Incentive spirometry ordered and encouraged. Increase activity as tolerated. Monitor blood sugars closely, hyperglycemia contributes to infection especially since patient is on chronic steroids. Medical management of other comorbidities per internal medicine. More recommendations to follow. I have personally seen and examined the patient, performed the documentation and the assessment and plan as written. Number of minutes spent on the visit: 30. MARCI Longo I have personally seen and examined the patient, reviewed the documentation and agree with the assessment and plan as written. Number of minutes spent on the visit: 40. Rakesh Camacho MD
[2023-03-27] MEDS: VANCOMYCIN 1,500 MG in SODIUM CHLORIDE 0.9% 500 ML 500 ML IVPB SCH (10:09)
[2023-03-27] MEDS: MAGNESIUM SULFATE-D5W PMX 1 GM in DEXTROSE/WATER 1 100ML.BAG IVPB SCH ×2 (10:09→11:20)
[2023-03-27 11:13] LABS: INR 1.1 (<1.2); Partial Thromboplastin Time 24.4 sec (22.0-30.0); Prothrombin Time 11.1 sec (9.0-12.0)
[2023-03-27 11:56] LABS: Glucose,Whole Blood 218 mg/dL (70-110)
[2023-03-27] MEDS: INSULIN ASPART (NovoLOG) 100 UNIT/ML VIAL SQ SCH ×3 (11:59→20:30)
[2023-03-27] MEDS: HEPARIN SOD,PORK IN 0.45% NACL 25,000 UNIT in 0.45% NACL 1 250ML.BAG IV SCH (13:11)
--- NOTE | 2023-03-27 15:13 | P.HPIM ---
History of Present Illness H&P Date: 03/27/23 This is a 78-year-old female who presented to the emergency department with chest wall pain at her surgical site as she recently had mitral valve replacement with CABG approximately one month ago. Patient reports to having some opening of the incisional site and was seen at the cardiothoracic surgery office. Patient reports she did have chills the night before but did not check her temperature. Patient reports she was febrile in the emergency department. Patient follows with Dr. Pearson in the outpatient setting with a past medical history of asthma, coronary artery disease, diabetes mellitus, GERD, hyperlipidemia, Osteoarthritis, cardiomyopathy. Patient denies drug use or tobacco use and denies any alcohol use. Dr. Jackson of cardiothoracic surgery evaluated the patient requesting to be admitted to medicine service with them on consult. Wound care was also consulted. Patient was started on vancomycin and also being started on heparin IV. EKG showed sinus tachycardia, chest x-ray showed cardiomegaly without suspicious new acute pulmonary process. Chest CT was done showing sternotomy changes with fat stranding along the superficial and deep aspects of the sternum some of this may be secondary to healing changes and multiple foci of gas present in the superficial surgical bed just anterior to the sternum with superimposed infection and surgery was noted to be on 023. No drainable fluid collection visualized at the superficial and deep portions however also reports CT is not great differential eating softer tissues and there is a trace right pleural effusion. Home medications have been reviewed and resumed and would recommend diabetes management with tight glycemic control and Accu-Cheks before meals and at bedtime. Review Of Systems: Constitutional: No fever, no chills, no night sweats. No weight change. No weakness, fatigue or lethargy. No daytime sleepiness. EENT: No headache. No blurred vision or double vision, no loss of vision. No loss of Hearing, no ringing in the ears, no dizziness. No nasal drainage or congestion. No epistaxis. No sore throat. Lungs: No shortness of breath, cough, no sputum production. No wheezing. Cardiovascular: No chest pain, no lower extremity edema. No palpitations. No paroxysmal nocturnal dyspnea. No orthopnea. No lightheadedness or dizziness. No syncopal episodes. Abdominal: No abdominal pain. No nausea, vomiting. No diarrhea. No constipation. No bloody or tarry stools.. No loss of appetite. Genitourinary: No dysuria, increased frequency, urgency. No urinary retention. Musculoskeletal: No myalgias. No muscle weakness, no gait dysfunction, no frequent falls. No back pain. No neck pain. Integumentary: No wounds, no lesions. No rash or pruritus. No unusual bruising. No change in hair or nails. Neurologic: No aphasia. No facial droop. No change in mentation. No head injury. No headache. No paralysis. No paresthesia. Psychiatric: No depression. No anxiety. No mood swings. Endocrine: No abnormal blood sugars. No weight change. No excessive sweating or thirst. No cold intolerance. PHYSICAL EXAMINATION: GENERAL: The patient is alert and oriented x4, Well developed, well nourished. Obese HEENT: Pupils are round and equally reacting to light. EOMI. no scleral icterus. No conjunctival pallor. Normocephalic, atraumatic. No pharyngeal erythema. No thyromegaly. CARDIOVASCULAR: S1 and S2 muffled chest wall sternal surgical site currently dressed with silver rope and dressing currently dry and intact PULMONARY: diminished breath sounds bilaterally with no wheezing, some scattered rhonchi noted. ABDOMEN: soft. Nontender on exam. obese. non-distended, normoactive bowel sounds. No palpable organomegaly. MUSCULOSKELETAL: No joint swelling or deformity. EXTREMITIES: No cyanosis, clubbing, or pedal edema. NEUROLOGICAL: Gross neurological examination did not reveal any focal deficits. Diffuse weakness SKIN: No rashes. Assessment: Recent CABG on 03/02/2023 with sternal incision site dehiscence with infection Leukocytosis, secondary to above Lactic acidosis, present on admission secondary to above, improved History of moderate to severe mitral regurgitation with mitral valve repair during CABG on 03/02/2023 Recent readmission with left lower extremity pain, positive for DVT started on eliquis Cardiomyopathy History of congestive heart failure, systolic dysfunction with most recent EF being 35% Diabetes mellitus GERD History of asthma, not in exacerbation Former smoker Hyperlipidemia GI prophylaxis DVT prophylaxis Full code Plan: Recommend to continue with current medications and management with cardiothoracic surgery following. Have ordered wound care consult recommending possible wound VAC and was started on IV vancomycin Home medications reviewed and resumed Patient with diabetes mellitus and was recently started on metformin and was twice daily per patient although having hypoglycemic events and transitioned to once daily per primary care. Would recommend tight glycemic control with Accu- Cheks before meals and at bedtime and will use sliding scale Patient does take eliquis in the outpatient setting and has been transitioned to IV heparin per cardiothoracic surgery Case management/social work to follow as they are recommending wound VAC with arrangements of possible Homecare versus going to rehab WBC is trending down and recommend follow-up labs in the a.m. Would recommend wound cultures and this has been ordered Recommend PT/OT therapy The impression and plan of care has been dictated by Serena Cantrell, nurse practitioner as directed. Dr. Ct MD I have performed a history and examination and MDM of this patient, discussed the same with the dictator, and agree with the dictator's assessment and plan as written ,documented as a scribe. Based on total visit time, I have performed more than 50% of the visit. Any additional findings or plans will be noted. Past Medical History Past Medical History: Asthma, Coronary Artery Disease (CAD), Diabetes Mellitus, Deep Vein Thrombosis (DVT), GERD/Reflux, Hyperlipidemia, Osteoarthritis (OA) Additional Past Medical History / Comment(s): cardiomyopathy, elevated heart rate, overactive bladder, glaucoma, hx elevated sed rate,lelo knee pain-arthritis and elmore cyst, covid in 09/2022; left lower extremity DVT 02/2023 History of Any Multi-Drug Resistant Organisms: None Reported Past Surgical History: Appendectomy, Section, Coronary Bypass/CABG, Hysterectomy, Orthopedic Surgery Additional Past Surgical History / Comment(s): 3 left breast biopsies, 3 needle loc on right breast- pt states all benign. lelo rotator cuff repair, lelo. hammer toe and bunionectomy, trigger finger release lelo ring fingers, meniscus repair lelo knees, carpal tunnel lelo, rt thumb fusion, lt ankle surgery, D&C, bilateral cataract surgery and laser surgery, COLONOSCOPY , EGD WITH BIOPSY; 2 vessel cabg w/ mitral repair 03/02/23 Past Anesthesia/Blood Transfusion Reactions: No Reported Reaction Additional Past Anesthesia/Blood Transfusion Reaction / Comment(s): slow to wake up from anesthesia. Past Psychological History: No Psychological Hx Reported Smoking Status: Former smoker Past Alcohol Use History: None Reported Additional Past Alcohol Use History / Comment(s): STARTED SMOKING AT 20, quit IN 1973 QUIT SMOKED 1-1/2 PPD Past Drug Use History: None Reported - Past Family History Mother History Unknown: Yes Family Medical History: Congestive Heart Failure (CHF), CVA/TIA, Hypertension Son(s) History Unknown: Yes Family Medical History: Deep Vein Thrombosis (DVT) Additional Family Medical History / Comment(s): DVT IN LEG Father Family Medical History: Congestive Heart Failure (CHF), Hypertension Medications and Allergies Home Medications Medication Instructions Recorded Confirmed Type Rosuvastatin Calcium [Crestor] 5 mg PO DAILY 07/16/14 03/26/23 History Solifenacin Succinate [Vesicare] 10 mg PO HS 07/16/14 03/26/23 History Latanoprost Ophth [Xalatan 0.005%] 1 drop BOTH EYES HS 08/17/17 03/26/23 History Carboxymethylcellulose Sodium 1 drop BOTH EYES TID PRN 11/16/22 03/26/23 History [Refresh Tears] Multivit with Calcium,Iron,Min 1 tab PO DAILY 11/16/22 03/26/23 History [Women's Multivitamin] Ascorbic Acid [Vitamin C] 500 mg PO DAILY 12/03/22 03/26/23 History Albuterol Inhaler [Ventolin Hfa 2 puff INHALATION RT-QID PRN each 01/16/2303/15 Rx Inhaler] Acetaminophen [Tylenol Extra 500 mg PO Q4HR PRN #0 03/11/23 03/26/23 Rx Strength] Aspirin 325 mg PO DAILY #30 tab 03/11/23 03/26/23 Rx Losartan [Cozaar] 50 mg PO DAILY #30 tab 03/11/23 03/26/23 Rx Pantoprazole [Protonix] 40 mg PO AC-BRKFST #30 tab 03/11/23 03/26/23 Rx Spironolactone [Aldactone] 25 mg PO DAILY #30 tab 03/11/23 03/26/23 Rx metFORMIN HCL [Glucophage] 500 mg PO BID #60 tab 03/11/23 03/26/23 Rx Sennosides-Docusate Sodium 2 tab PO HS PRN 03/15/23 03/26/23 History [Senokot-S] predniSONE 10 mg PO DAILY 03/15/23 03/26/23 History Apixaban [Eliquis] 5 mg PO BID #60 tab 03/16/23 03/26/23 Rx Furosemide [Lasix] 40 mg PO DAILY #30 tablet 03/17/23 03/26/23 Rx Metoprolol Tartrate [Lopressor] 100 mg PO BID 30 Days #60 tab 03/17/23 03/26/23 Rx Allergies Allergy/AdvReac Type Severity Reaction Status Date / Time Sulfa (Sulfonamide Allergy Rash/Hives Verified 03/26/23 12:39 Antibiotics) azithromycin [From Zithromax] AdvReac intercts Verified 03/26/23 12:39 w/Digoxin benzonatate AdvReac Gerd Verified 03/26/23 12:39 budesonide AdvReac Wheezing Verified 03/26/23 12:39 dexamethasone AdvReac Gerd Verified 03/26/23 12:39 doxycycline AdvReac Gerd Verified 03/26/23 12:39 fluticasone AdvReac Rapid Verified 03/26/23 12:39 Heart Rate, dizziness formoterol AdvReac Wheezing, Verified 03/26/23 12:39 [From [employer]] Dizziness, Rapid Heart Rate, High BP glycopyrrolate AdvReac Wheezing, Verified 03/26/23 12:39 [From [employer]] Dizziness, Rapid Heart Rate, High BP ipratropium AdvReac Rapid Verified 03/26/23 12:39 Heart Rate levalbuterol [From Xopenex] AdvReac Wheezing, Verified 03/26/23 12:39 Dizziness pravastatin sodium AdvReac Swelling Verified 03/26/23 12:39 [From Pravachol] and pain in legs prednisone AdvReac causes Verified 03/26/23 12:39 thrush ranitidine AdvReac Nausea & Verified 03/26/23 12:39 Vomiting & Diarrhea Physical Exam Vitals: Vital Signs Temp Pulse Pulse Resp BP BP Pulse Ox 03/27/23 09:10 94 L 03/27/23 07:37 99.9 F H 114 H 18 116/57 99 03/27/23 04:00 105 H 16 129/61 97 03/27/23 00:00 100 16 130/59 100 03/26/23 20:00 98.8 F 89 16 101/51 99 03/26/23 18:00 96.9 F L 92 18 105/52 98 03/26/23 17:29 85 18 109/66 98 03/26/23 16:27 98.5 F 92 18 102/59 98 03/26/23 13:53 98 18 130/76 98 03/26/23 11:46 101.1 F H 103 H 19 130/76 99 Intake and Output 03/26/23 03/27/23 03/27/23 22:59 06:59 14:59 Intake Total 485 Balance 485 Intake: Oral 485 Other: Voiding Method Bedpan Bedpan Toilet # Voids 1 Weight 77.564 kg Results CBC & Chem 7: 03/27/23 07:45 03/27/23 07:45 Labs: Abnormal Lab Results - Last 24 Hours (Table) 03/26/23 03/26/23 03/26/23 Range/Units 12:29 12:29 12:29 WBC 25.1 H (3.8-10.6) k/uL Hgb 10.3 L (11.4-16.0) gm/dL Hct 33.1 L (34.0-46.0) % MCHC (31.0-37.0) g/dL Plt Count 540 H (150-450) k/uL Neutrophils # 20.9 H (1.3-7.7) k/uL Monocytes # 1.5 H (0-1.0) k/uL PT 12.5 H (9.0-12.0) sec INR 1.2 H (<1.2) Sodium (137-145) mmol/L Chloride (98-107) mmol/L BUN (7-17) mg/dL Glucose (74-99) mg/dL POC Glucose (mg/dL) (70-110) mg/dL Plasma Lactic Acid Cuco (0.7-2.0) mmol/L Urine Protein 1+ H (Negative) Urine Blood Trace H (Negative) Ur Leukocyte Esterase Trace H (Negative) Urine Mucus Rare H (None) /hpf 03/26/23 03/26/23 03/26/23 Range/Units 13:54 13:54 20:00 WBC (3.8-10.6) k/uL Hgb (11.4-16.0) gm/dL Hct (34.0-46.0) % MCHC (31.0-37.0) g/dL Plt Count (150-450) k/uL Neutrophils # (1.3-7.7) k/uL Monocytes # (0-1.0) k/uL PT (9.0-12.0) sec INR (<1.2) Sodium 134 L (137-145) mmol/L Chloride 97 L (98-107) mmol/L BUN 22 H (7-17) mg/dL Glucose 163 H (74-99) mg/dL POC Glucose (mg/dL) 240 H (70-110) mg/dL Plasma Lactic Acid Cuco 2.7 H* (0.7-2.0) mmol/L Urine Protein (Negative) Urine Blood (Negative) Ur Leukocyte Esterase (Negative) Urine Mucus (None) /hpf 03/27/23 03/27/23 03/27/23 Range/Units 05:59 07:45 07:45 WBC 18.4 H (3.8-10.6) k/uL Hgb 10.1 L (11.4-16.0) gm/dL Hct (34.0-46.0) % MCHC 29.7 L (31.0-37.0) g/dL Plt Count 500 H (150-450) k/uL Neutrophils # 14.9 H (1.3-7.7) k/uL Monocytes # (0-1.0) k/uL PT (9.0-12.0) sec INR (<1.2) Sodium 136 L (137-145) mmol/L Chloride (98-107) mmol/L BUN (7-17) mg/dL Glucose 120 H (74-99) mg/dL POC Glucose (mg/dL) 130 H (70-110) mg/dL Plasma Lactic Acid Cuco (0.7-2.0) mmol/L Urine Protein (Negative) Urine Blood (Negative) Ur Leukocyte Esterase (Negative) Urine Mucus (None) /hpf Thrombosis Risk Factor Assmnt - DVT/VTE Prophylaxis DVT/VTE Prophylaxis: Pharmacologic Prophylaxis ordered - Choose All That Apply Each Factor Represents 1 point: Obesity (BMI >25) Each Risk Factor Represents 3 Points: Age 75 years or older Thrombosis Risk Factor Assessment Total Risk Factor Score: 4 Thrombosis Risk Factor Assessment Level: Moderate Risk Assessment and Plan Time with Patient: Greater than 30
[2023-03-27 16:52] LABS: Glucose,Whole Blood 243 mg/dL (70-110)
[2023-03-27 20:15] LABS: Glucose,Whole Blood 190 mg/dL (70-110)
[2023-03-27] MEDS: TROSPIUM CHLORIDE 20 MG TABLET PO SCH (20:30)
[2023-03-27] MEDS: LATANOPROST 0.005% OPHTH DROPS 2.5 ML BTL BOTH EYES SCH (20:30)
[2023-03-27] MEDS: HEPARIN SODIUM 1,000 UN/ML (10ML VL) IV PRN (22:00)
[2023-03-28 04:18] LABS: HCT 31.1 % (34.0-46.0); HGB 9.1 gm/dL (11.4-16.0); Hypochromasia Marked; MCHC 29.4 g/dL (31.0-37.0); MCV 88.3 fL (80.0-100.0); Mean Platelet Volume 7.5; Platelet Count 452 k/uL (150-450); RBC 3.52 m/uL (3.80-5.40); RDW 14.9 % (11.5-15.5); WBC 14.4 k/uL (3.8-10.6)
[2023-03-28 04:26] LABS: Albumin 3.3 g/dL (3.5-5.0); Calcium 9.1 mg/dL (8.4-10.2); Magnesium 2.1 mg/dL (1.6-2.3); Potassium 4.1 mmol/L (3.5-5.1); Total Bilirubin 0.6 mg/dL (0.2-1.3); Total Protein 6.6 g/dL (6.3-8.2)
[2023-03-28] MEDS: HEPARIN SOD,PORK IN 0.45% NACL 25,000 UNIT in 0.45% NACL 1 250ML.BAG IV SCH (05:45)
[2023-03-28 06:24] LABS: Glucose,Whole Blood 115 mg/dL (70-110)
[2023-03-28] MEDS: INSULIN ASPART (NovoLOG) 100 UNIT/ML VIAL SQ SCH ×4 (06:37→20:34)
[2023-03-28] MEDS: PANTOPRAZOLE 40 MG TABLET PO SCH (06:50)
--- NOTE | 2023-03-28 07:45 | P.PN ---
Subjective Progress Note Date: 03/28/23 Principal diagnosis: Sternal incision dehiscence with superficial infection, leukocytosis, lactic acidosis. History of coronary artery disease with left main disease and moderate to severe mitral regurgitation status post 2 vessel CABG and mitral valve repair 03/02/23, left lower extremity DVT on eliquis outpatient, cardiomyopathy/chronic systolic heart failure with decreased systolic functionand EF 35%, hypertriglyceridemia, asthma with multiple exacerbations and chronic steroids, severe restrictive lung disease, diabetes mellitus, previous tobacco dependence, GERD, osteoarthritis, COVID-19 infection in September 2022 The patient was seen and examined this morning sitting up in a recliner on the cardiac stepdown unit in no acute distress eating breakfast. Remains in sinus rhythm, hemodynamically stable, on room air, remains afebrile. Does complain of mild postoperative pain controlled with Tylenol. Was seen yesterday by wound care, dressing change with absorptive silver recommended until ready for wound vac. Patient has been ambulatory in her room, showered yesterday. Being seen by PT/OT. No other new concerns. Objective - Vital Signs Vital signs: Vital Signs Temp 98.4 F 03/27/23 20:00 Pulse 93 03/28/23 03:59 Resp 18 03/28/23 03:59 BP 125/61 03/28/23 03:59 Pulse Ox 98 03/28/23 03:59 FiO2 Intake & Output 03/27/23 03/28/23 03/28/23 18:59 06:59 18:59 Intake Total 1380 1615.912 Output Total 800 150 Balance 580 1465.912 Intake: IV 120 .9@10 120 Intake, IV Titration 700 160.912 Amount Heparin Sod,Pork in 0.45% 160.912 NaCl 25,000 unit In 0.45 % NaCl 1 250ml.bag @ 12 UNITS/KG/HR 9.308 mls/hr IV .Q24H ANURAG Rx#: [id number] Magnesium Sulfate-D5w Pmx 200 1 gm In Dextrose/Water 1 100ml.bag @ 100 mls/hr IVPB Q1H ANURAG Rx#: [id number] Vancomycin 1,500 mg In 500 Sodium Chloride 0.9% 500 ml 500 ml @ 167 mls/hr IVPB Q24H ANURAG Rx#: [id number] Oral 560 1455 Output: Urine 800 150 Other: Voiding Method Toilet Toilet # Voids 1 1 - Exam CONSTITUTIONAL: Appears comfortable, cooperative, no acute distress RESPIRATORY: Lungs sounds diminished bilaterally. Respirations even, nonlabored. Currently on room air with oxygen saturation 98%. Able to achieve 500-750 mL on incentive spirometry. Strong nonproductive cough. CARDIOVASCULAR: S1, S2 present. Regular rate and rhythm, sinus rhythm on telemetry. Sternum stable. Palpable peripheral pulses bilaterally. No edema present. No calf pain or tenderness noted. Heart hugger in place with patient demonstrating appropriate use. Antiembolism stockings, SCDs present. GASTROINTESTINAL: Abdomen soft, nontender, nondistended. Active bowel sounds present 4 quadrants. Tolerating diet. GENITOURINARY: Continues to void although sometimes incontinent, output 950 mL + in the last 24 hours INTEGUMENTARY: Skin is warm and dry. Anterior chest incision dehisced, packed with absorptive silver rope and covered with dry dressing. Left lower extremity EVH site well approximated without redness or drainage. NEUROLOGIC: Cranial nerves II through XII intact MUSKULOSKELETAL: Able to move all extremities, strength equal bilaterally PSYCHIATRIC: Alert and oriented to person place and time, appropriate affect, intact judgment and insight - Allied health notes Allied health notes reviewed: nursing - Labs CBC & Chem 7: 03/28/23 04:01 03/28/23 04:01 Labs: Abnormal Lab Results - Last 24 Hours (Table) 03/27/23 03/27/23 03/27/23 Range/Units 07:45 07:45 11:55 WBC 18.4 H (3.8-10.6) k/uL RBC (3.80-5.40) m/uL Hgb 10.1 L (11.4-16.0) gm/dL Hct (34.0-46.0) % MCHC 29.7 L (31.0-37.0) g/dL Plt Count 500 H (150-450) k/uL Neutrophils # 14.9 H (1.3-7.7) k/uL APTT (22.0-30.0) sec Sodium 136 L (137-145) mmol/L Glucose 120 H (74-99) mg/dL POC Glucose (mg/dL) 218 H (70-110) mg/dL Albumin (3.5-5.0) g/dL 03/27/23 03/27/23 03/27/23 Range/Units 16:48 20:13 20:43 WBC (3.8-10.6) k/uL RBC (3.80-5.40) m/uL Hgb (11.4-16.0) gm/dL Hct (34.0-46.0) % MCHC (31.0-37.0) g/dL Plt Count (150-450) k/uL Neutrophils # (1.3-7.7) k/uL APTT 33.4 H (22.0-30.0) sec Sodium (137-145) mmol/L Glucose (74-99) mg/dL POC Glucose (mg/dL) 243 H 190 H (70-110) mg/dL Albumin (3.5-5.0) g/dL 03/28/23 03/28/23 03/28/23 Range/Units 04:01 04:01 04:01 WBC 14.4 H (3.8-10.6) k/uL RBC 3.52 L (3.80-5.40) m/uL Hgb 9.1 L (11.4-16.0) gm/dL Hct 31.1 L (34.0-46.0) % MCHC 29.4 L (31.0-37.0) g/dL Plt Count 452 H (150-450) k/uL Neutrophils # (1.3-7.7) k/uL APTT 107.3 H* (22.0-30.0) sec Sodium 136 L (137-145) mmol/L Glucose 101 H (74-99) mg/dL POC Glucose (mg/dL) (70-110) mg/dL Albumin 3.3 L (3.5-5.0) g/dL 03/28/23 Range/Units 06:23 WBC (3.8-10.6) k/uL RBC (3.80-5.40) m/uL Hgb (11.4-16.0) gm/dL Hct (34.0-46.0) % MCHC (31.0-37.0) g/dL Plt Count (150-450) k/uL Neutrophils # (1.3-7.7) k/uL APTT (22.0-30.0) sec Sodium (137-145) mmol/L Glucose (74-99) mg/dL POC Glucose (mg/dL) 115 H (70-110) mg/dL Albumin (3.5-5.0) g/dL Microbiology - Last 24 Hours (Table) 03/27/23 18:06 Anaerobic Culture - Preliminary Chest 03/27/23 18:06 Wound Culture - Preliminary Chest - Imaging and Cardiology Chest x-ray: image reviewed Assessment and Plan Assessment: Sternal incision dehiscence with SUPERFICIAL infection Leukocytosis Lactic acidosis, resolved History of coronary artery disease with left main disease status post 2 vessel CABG 03/02/23 History of moderate to severe mitral regurgitation status post mitral valve rep air 03/02/2023 Postoperative hypotension and acute delirium, resolved Left lower extremity DVT on eliquis outpatient, last dose 03/25/23 am Cardiomyopathy/chronic systolic heart failure with decreased systolic functionand EF 35% Hypertriglyceridemia, TG 201 Asthma with multiple exacerbations and chronic steroids Severe restrictive lung disease, FEV1 42% of predicted Diabetes mellitus, A1c 6.9% Previous tobacco dependence GERD Osteoarthritis COVID-19 infection in September 2022 Plan: Dr. Astorga to eval tomorrow for need for surgical debridement If necessary will apply wound vac after surgery, if unnecessary wound vac to be applied in the wound care center per wound care FRONT OFFICE DIRECTOR recommendations Continue to hold Eliquis for now, continue IV heparin until decision made regarding surgical debridement Continue IV antibiotics, wound culture taken, will follow and adjust antibiotics as needed Continue home medications Sternal precautions remain in place Incentive spirometry encouraged Increase activity as tolerated, PT/OT following Monitor blood sugars closely, hyperglycemia contributes to infection especially since patient is on chronic steroids Will monitor daily labs and CXR Medical management of other comorbidities per internal medicine More recommendations to follow
[2023-03-28] MEDS: metFORMIN 500 MG TAB PO SCH ×2 (07:48→20:34)
[2023-03-28] MEDS: TROSPIUM CHLORIDE 20 MG TABLET PO SCH ×2 (07:49→20:34)
[2023-03-28] MEDS: ASCORBIC ACID 500 MG TAB PO SCH (07:49)
[2023-03-28] MEDS: METOPROLOL TARTRATE 50 MG TAB PO SCH ×2 (07:50→20:34)
[2023-03-28] MEDS: FUROSEMIDE 40 MG TAB PO SCH (07:50)
[2023-03-28] MEDS: MULTIVITAMINS, THERA 1 EACH TAB PO SCH (07:50)
[2023-03-28] MEDS: LOSARTAN 50 MG TAB PO SCH (07:50)
[2023-03-28] MEDS: predniSONE 10 MG TAB PO SCH (07:51)
[2023-03-28] MEDS: ATORVASTATIN 10 MG TAB PO SCH (07:51)
[2023-03-28] MEDS: SPIRONOLACTONE 25 MG TAB PO SCH (07:51)
[2023-03-28] MEDS: ASPIRIN 81 MG PO SCH (07:51)
--- NOTE | 2023-03-28 07:59 | XR ---
EXAMINATION TYPE: XR chest 2V DATE OF EXAM: 03/28/2023 6:50 AM COMPARISON: Chest radiographs from 03/26/2023 TECHNIQUE: XR chest 2V Frontal and lateral views of the chest. CLINICAL INDICATION:Female, 78 years old with history of post cardiac surgery; FINDINGS: Lungs/Pleura: There is no evidence of pleural effusion, focal consolidation, or pneumothorax. Pulmonary vascularity: Mild pulmonary vascular congestion. Heart/mediastinum: Cardiomediastinal silhouette is enlarged and stable. Post valve repair changes. L eft atrial appendage occlusion device is present. Musculoskeletal: No acute osseous pathology. Midline sternotomy wires are noted. IMPRESSION: Cardiomegaly with mild pulmonary vascular congestion, similar to prior
[2023-03-28] MEDS: VANCOMYCIN 1,500 MG in SODIUM CHLORIDE 0.9% 500 ML 500 ML IVPB SCH (08:06)
[2023-03-28] MEDS: ALBUTEROL INHALATION PRN ×2 (11:43→21:14)
[2023-03-28 11:53] LABS: Glucose,Whole Blood 147 mg/dL (70-110)
--- NOTE | 2023-03-28 13:57 | P.PN ---
Subjective Progress Note Date: 03/28/23 This is a 78-year-old female who presented to the emergency department with chest wall pain at her surgical site as she recently had mitral valve replacement with CABG approximately one month ago. Patient reports to having some opening of the incisional site and was seen at the cardiothoracic surgery office. Patient reports she did have chills the night before but did not check her temperature. Patient reports she was febrile in the emergency department. Patient follows with Dr. Pearson in the outpatient setting with a past medical history of asthma, coronary artery disease, diabetes mellitus, GERD, hyperlipidemia, Osteoarthritis, cardiomyopathy. Patient denies drug use or tobacco use and denies any alcohol use. Dr. Jackson of cardiothoracic surgery evaluated the patient requesting to be admitted to medicine service with them on consult. Wound care was also consulted. Patient was started on vancomycin and also being started on heparin IV. EKG showed sinus tachycardia, chest x-ray showed cardiomegaly without suspicious new acute pulmonary process. Chest CT was done showing sternotomy changes with fat stranding along the superficial and deep aspects of the sternum some of this may be secondary to healing changes and multiple foci of gas present in the superficial surgical bed just anterior to the sternum with superimposed infection and surgery was noted to be on 03/02/2023. No drainable fluid collection visualized at the superficial and deep portions however also reports CT is not great differential eating softer tissues and there is a trace right pleural effusion. Home medications have been reviewed and resumed and would recommend diabetes management with tight glycemic control and Accu-Cheks before meals and at bedtime 5/6. Patient seen and examined. Nursing staff noticed a lot of purulent discharge from the sternotomy incision site . Patient denies any fever. Complaining of pain at the site of surgery Lab work this morning showed white count 14.4, hemoglobin 9.1, sodium 136, potassium 4.1, chloride 100, BUN 17, creatinine 0.82 REVIEW OF SYSTEMS: CONSTITUTIONAL: No fever, no malaise,. CARDIOVASCULAR: No chest pain, no palpitations, no syncope. PULMONARY: No shortness of breath, no cough, GASTROINTESTINAL: No diarrhea, no nausea, no vomiting, no abdominal pain. NEUROLOGICAL: No headaches, no weakness, PHYSICAL EXAMINATION: GENERAL: The patient is alert and oriented x3, not in any acute distress. Well developed, well nourished. HEENT: Pupils are round and equally reacting to light. EOMI. No scleral icterus. No conjunctival pallor. Normocephalic, atraumatic. No pharyngeal erythema. No thyromegaly. CARDIOVASCULAR: S1 and S2 present. No murmurs, rubs, or gallops. Sternotomy surgical incision seen PULMONARY: Chest is clear to auscultation, no wheezing or crackles. ABDOMEN: Soft, nontender, nondistended, normoactive bowel sounds. No palpable organomegaly. MUSCULOSKELETAL: No joint swelling or deformity. EXTREMITIES: No cyanosis, clubbing, or pedal edema. NEUROLOGICAL: Gross neurological examination did not reveal any focal deficits. SKIN: No rashes. Assessment and plan Recent CABG on 03/02/2023 with sternal incision site dehiscence with infection Leukocytosis, secondary to above Lactic acidosis, present on admission secondary to above, improved History of moderate to severe mitral regurgitation with mitral valve repair during CABG on 03/02/2023 Recent readmission with left lower extremity pain, positive for DVT started on eliquis Cardiomyopathy History of congestive heart failure, systolic dysfunction with most recent EF being 35% Diabetes mellitus GERD History of asthma, not in exacerbation Former smoker Hyperlipidemia Plan; Monitor vital signs Monitor CBC Monitor CMP Continue telemetry monitoring Continue wound care Continue pharmacy dose vancomycin Consult ID CT surgery following Objective - Vital Signs Vital signs: Vital Signs Temp 98.6 F 03/28/23 08:39 Pulse 103 H 03/28/23 08:39 Resp 18 03/28/23 08:39 BP 118/58 03/28/23 08:39 Pulse Ox 100 03/28/23 08:39 FiO2 Intake & Output 03/27/23 03/28/23 03/28/23 18:59 06:59 18:59 Intake Total 1380 1615.912 980 Output Total 800 150 250 Balance 580 1465.912 730 Intake: IV 120 120 .9@10 120 120 Intake, IV Titration 700 160.912 500 Amount Heparin Sod,Pork in 0.45% 160.912 NaCl 25,000 unit In 0.45 % NaCl 1 250ml.bag @ 12 UNITS/KG/HR 9.308 mls/hr IV .Q24H ANURAG Rx#: [id number] Magnesium Sulfate-D5w Pmx 200 1 gm In Dextrose/Water 1 100ml.bag @ 100 mls/hr IVPB Q1H AN[facility] Rx#: [id number] Vancomycin 1,500 mg In 500 500 Sodium Chloride 0.9% 500 ml 500 ml @ 167 mls/hr IVPB Q24H ANURAG Rx#: [id number] Oral 560 1455 360 Output: Urine 800 150 250 Other: Voiding Method Toilet Toilet Toilet # Voids 1 1 1 - Labs CBC & Chem 7: 03/28/23 04:01 03/28/23 04:01 Labs: Abnormal Lab Results - Last 24 Hours (Table) 03/27/23 03/27/23 03/27/23 Range/Units 11:55 16:48 20:13 WBC (3.8-10.6) k/uL RBC (3.80-5.40) m/uL Hgb (11.4-16.0) gm/dL Hct (34.0-46.0) % MCHC (31.0-37.0) g/dL Plt Count (150-450) k/uL APTT (22.0-30.0) sec Sodium (137-145) mmol/L Glucose (74-99) mg/dL POC Glucose (mg/dL) 218 H 243 H 190 H (70-110) mg/dL Albumin (3.5-5.0) g/dL 03/27/23 03/28/23 03/28/23 Range/Units 20:43 04:01 04:01 WBC 14.4 H (3.8-10.6) k/uL RBC 3.52 L (3.80-5.40) m/uL Hgb 9.1 L (11.4-16.0) gm/dL Hct 31.1 L (34.0-46.0) % MCHC 29.4 L (31.0-37.0) g/dL Plt Count 452 H (150-450) k/uL APTT 33.4 H (22.0-30.0) sec Sodium 136 L (137-145) mmol/L Glucose 101 H (74-99) mg/dL POC Glucose (mg/dL) (70-110) mg/dL Albumin 3.3 L (3.5-5.0) g/dL 03/28/23 03/28/23 Range/Units 04:01 06:23 WBC (3.8-10.6) k/uL RBC (3.80-5.40) m/uL Hgb (11.4-16.0) gm/dL Hct (34.0-46.0) % MCHC (31.0-37.0) g/dL Plt Count (150-450) k/uL APTT 107.3 H* (22.0-30.0) sec Sodium (137-145) mmol/L Glucose (74-99) mg/dL POC Glucose (mg/dL) 115 H (70-110) mg/dL Albumin (3.5-5.0) g/dL Microbiology - Last 24 Hours (Table) 03/27/23 18:06 Anaerobic Culture - Preliminary Chest 03/27/23 18:06 Wound Culture - Preliminary Chest
[2023-03-28 16:42] LABS: Glucose,Whole Blood 190 mg/dL (70-110)
--- NOTE | 2023-03-28 19:36 | P.CONS ---
History of Present Illness - Reason for Consult Consult date: 03/28/23 sternotomy site infection Requesting physician: Raymundo Braun - Chief Complaint pain and draiange from chest wall incision x days - History of Present Illness Patient is a 78-year-old -[place] female with a past medical history significant for coronary artery disease in this patient with status post two- vessel coronary bypass grafting and mitral valve repair on 03/02/2023 patient subsequently has been stabilized and discharged home on 03/11/2023 patient currently was seen in the ER on 03/22/2020 with a concern for possible dehiscence of the inferior portion of her sternal incision and the patient was discharged home subsequently has been follow-up with the surgeon and the patient has been treated with Aquacel silver dressing however the patient is presenting back to the ER on 03/26/2023 with a chest wall pain patient has been describing the pain to be sharp to dull aching about 7-8 or 10 no radiation and the patient noticed to having some drainage from the lower end of the incision patient did have some chills but denies high-grade fever on presentation to the hospital the patient was febrile with a temperature of 101 degree for night patient was tachycardic and did have a 25.1 patient did have a normal kidney function liver enzymes are normal urine was negative influenza RSV and COVID testing was negative patient did have features of sepsis on admission unfortunately no blood cultures were done patient has been started on vancomycin patient did have a CT of the chest did shows sternotomy changes with fat stranding along the superficial and deep aspect of the sternal multiple foci of gas present in the superficial surgical bed no drainable fluid collection visualized infectious was consulted this morning for further management of antibiotic therapy at the time of evaluation patient was noted to have significant purulent drainage from her incision site which was cultured again Review of Systems Positive point has been mentioned in HPI rest of the systems are negative Past Medical History Past Medical History: Asthma, Coronary Artery Disease (CAD), Diabetes Mellitus, Deep Vein Thrombosis (DVT), GERD/Reflux, Hyperlipidemia, Osteoarthritis (OA) Additional Past Medical History / Comment(s): cardiomyopathy, elevated heart rate, overactive bladder, glaucoma, hx elevated sed rate,lelo knee pain-arthritis and el[place] cyst, covid in 09/2022; left lower extremity DVT 02/2023 History of Any Multi-Drug Resistant Organisms: None Reported Past Surgical History: Appendectomy, Section, Coronary Bypass/CABG, Hysterectomy, Orthopedic Surgery Additional Past Surgical History / Comment(s): 3 left breast biopsies, 3 needle loc on right breast- pt states all benign. lelo rotator cuff repair, lelo. hammer toe and bunionectomy, trigger finger release lelo ring fingers, meniscus repair lelo knees, carpal tunnel lelo, rt thumb fusion, lt ankle surgery, D&C, bilateral cataract surgery and laser surgery, COLONOSCOPY , EGD WITH BIOPSY; 2 vessel cabg w/ mitral repair 03/02/23 Past Anesthesia/Blood Transfusion Reactions: No Reported Reaction Additional Past Anesthesia/Blood Transfusion Reaction / Comm: slow to wake up from anesthesia. Past Psychological History: No Psychological Hx Reported Smoking Status: Former smoker Past Alcohol Use History: None Reported Additional Past Alcohol Use History / Comment(s): STARTED SMOKING AT 20, quit IN 1973 QUIT SMOKED 1-2 PPD Past Drug Use History: None Reported - Past Family History Mother History Unknown: Yes Family Medical History: Congestive Heart Failure (CHF), CVA/TIA, Hypertension Son(s) History Unknown: Yes Family Medical History: Deep Vein Thrombosis (DVT) Additional Family Medical History / Comment(s): DVT IN LEG Father Family Medical History: Congestive Heart Failure (CHF), Hypertension Medications and Allergies Home Medications Medication Instructions Recorded Confirmed Type Rosuvastatin Calcium [Crestor] 5 mg PO DAILY 07/16/14 03/26/23 History Solifenacin Succinate [Vesicare] 10 mg PO HS 07/16/14 03/26/23 History Latanoprost Ophth [Xalatan 0.005%] 1 drop BOTH EYES HS 08/17/17 03/26/23 History Carboxymethylcellulose Sodium 1 drop BOTH EYES TID PRN 11/16/22 03/26/23 History [Refresh Tears] Multivit with Calcium,Iron,Min 1 tab PO DAILY 11/16/22 03/26/23 History [Women's Multivitamin] Ascorbic Acid [Vitamin C] 500 mg PO DAILY 12/03/22 03/26/23 History Albuterol Inhaler [Ventolin Hfa 2 puff INHALATION RT-QID PRN each 01/16/23 03/26/23 Rx Inhaler] Acetaminophen [Tylenol Extra 500 mg PO Q4HR PRN #0 03/11/23 03/26/23 Rx Strength] Aspirin 325 mg PO DAILY #30 tab 03/11/23 03/26/23 Rx Losartan [Cozaar] 50 mg PO DAILY #30 tab 03/11/23 03/26/23 Rx Pantoprazole [Protonix] 40 mg PO AC-BRKFST #30 tab 03/11/23 03/26/23 Rx Spironolactone [Aldactone] 25 mg PO DAILY #30 tab 03/11/23 03/26/23 Rx metFORMIN HCL [Glucophage] 500 mg PO BID #60 tab 03/11/23 03/26/23 Rx Sennosides-Docusate Sodium 2 tab PO HS PRN 03/15/23 03/26/23 History [Senokot-S] predniSONE 10 mg PO DAILY 03/15/23 03/26/23 History Apixaban [Eliquis] 5 mg PO BID #60 tab 03/16/23 03/26/23 Rx Metoprolol Tartrate [Lopressor] 100 mg PO BID 30 Days #60 tab 03/17/23 03/26/23 Rx Furosemide [Lasix] 20 mg PO DAILY tab 04/06/23 Rx Mag Hydrox/Al Hydrox/Simeth 30 ml PO Q4HR PRN ml 04/06/23 Rx [Maalox] ceFAZolin SODIUM [Cefazolin Sodium] 2 gm IJ Q8HR 35 Days #105 each 04/07/23 Rx metroNIDAZOLE [Flagyl] 500 mg PO TID 35 Days #105 tab 04/07/23 Rx Allergies Allergy/AdvReac Type Severity Reaction Status Date / Time Sulfa (Sulfonamide Allergy Rash/Hives Verified 03/26/23 12:39 Antibiotics) azithromycin [From Zithromax] AdvReac intercts Verified 03/26/23 12:39 w/Digoxin benzonatate AdvReac Gerd Verified 03/26/23 12:39 budesonide AdvReac Wheezing Verified 03/26/23 12:39 dexamethasone AdvReac Gerd Verified 03/26/23 12:39 doxycycline AdvReac Gerd Verified 03/26/23 12:39 fluticasone AdvReac Rapid Verified 03/26/23 12:39 Heart Rate, dizziness formoterol AdvReac Wheezing, Verified 03/26/23 12:39 [From [employer]] Dizziness, Rapid Heart Rate, High BP glycopyrrolate AdvReac Wheezing, Verified 03/26/23 12:39 [From [employer]] Dizziness, Rapid Heart Rate, High BP ipratropium AdvReac Rapid Verified 03/26/23 12:39 Heart Rate levalbuterol [From Xopenex] AdvReac Wheezing, Verified 03/26/23 12:39 Dizziness pravastatin sodium AdvReac Swelling Verified 03/26/23 12:39 [From Pravachol] and pain in legs prednisone AdvReac causes Verified 03/26/23 12:39 thrush ranitidine AdvReac Nausea & Verified 03/26/23 12:39 Vomiting & Diarrhea Physical Exam Vitals: Vital Signs Temp Pulse Resp BP Pulse Ox 03/28/23 08:39 98.6 F 103 H 18 118/58 100 03/28/23 07:47 99 03/28/23 03:59 93 18 125/61 98 03/28/23 00:00 88 18 102/59 97 03/27/23 20:00 98.4 F 95 18 107/54 97 03/27/23 16:37 98.9 F 96 18 105/54 98 03/27/23 14:32 103 H 03/27/23 10:50 98.8 F 103 H 18 97/55 100 Intake and Output 03/27/23 03/28/23 03/28/23 22:59 06:59 14:59 Intake Total 4944.571 5504.467 980 Output Total 400 150 250 Balance 1066.445 899.467 730 Intake: IV 120 120 .9@10 120 120 Intake, IV Titration 781.445 79.467 500 Amount Heparin Sod,Pork in 0.45% 81.445 79.467 NaCl 25,000 unit In 0.45 % NaCl 1 250ml.bag @ 12 UNITS/KG/HR 9.308 mls/hr IV .Q24H [facility] Rx#: [id number] Magnesium Sulfate-D5w Pmx 200 1 gm In Dextrose/Water 1 100ml.bag @ 100 mls/hr IVPB Q1H [facility] Rx#: [id number] Vancomycin 1,500 mg In 500 500 Sodium Chloride 0.9% 500 ml 500 ml @ 167 mls/hr IVPB Q24H [facility] Rx#: [id number] Oral 565 970 360 Output: Urine 400 150 250 Other: Voiding Method Toilet Toilet Toilet # Voids 1 1 1 GENERAL DESCRIPTION: Elderly female lying in bed, no distress. No tachypnea or accessory muscle of respiration use. HEENT: Shows Pallor , no scleral icterus. Oral mucous membrane is dry. NECK: Trachea central, no thyromegaly. LUNGS: Unlabored breathing. Clear to auscultation anteriorly. No wheeze or crackle. HEART: S1, S2, regular rate and rhythm. lower end of the sternal incision is open with purulent drainage that was cultured ABDOMEN: Soft, no tenderness , guarding or rigidity EXTREMITIES: No edema of feet. SKIN: No rash, no masses palpable. NEUROLOGICAL: The patient is awake, alert, oriented x3, mood and affect normal. Results CBC & Chem 7: 04/07/23 10:04 04/07/23 10:04 Labs: Abnormal Lab Results - Last 24 Hours (Table) 03/27/23 03/27/23 03/27/23 Range/Units 11:55 16:48 20:13 WBC (3.8-10.6) k/uL RBC (3.80-5.40) m/uL Hgb (11.4-16.0) gm/dL Hct (34.0-46.0) % MCHC (31.0-37.0) g/dL Plt Count (150-450) k/uL APTT (22.0-30.0) sec Sodium (137-145) mmol/L Glucose (74-99) mg/dL POC Glucose (mg/dL) 218 H 243 H 190 H (70-110) mg/dL Albumin (3.5-5.0) g/dL 03/27/23 03/28/23 03/28/23 Range/Units 20:43 04:01 04:01 WBC 14.4 H (3.8-10.6) k/uL RBC 3.52 L (3.80-5.40) m/uL Hgb 9.1 L (11.4-16.0) gm/dL Hct 31.1 L (34.0-46.0) % MCHC 29.4 L (31.0-37.0) g/dL Plt Count 452 H (150-450) k/uL APTT 33.4 H (22.0-30.0) sec Sodium 136 L (137-145) mmol/L Glucose 101 H (74-99) mg/dL POC Glucose (mg/dL) (70-110) mg/dL Albumin 3.3 L (3.5-5.0) g/dL 03/28/23 03/28/23 Range/Units 04:01 06:23 WBC (3.8-10.6) k/uL RBC (3.80-5.40) m/uL Hgb (11.4-16.0) gm/dL Hct (34.0-46.0) % MCHC (31.0-37.0) g/dL Plt Count (150-450) k/uL APTT 107.3 H* (22.0-30.0) sec Sodium (137-145) mmol/L Glucose (74-99) mg/dL POC Glucose (mg/dL) 115 H (70-110) mg/dL Albumin (3.5-5.0) g/dL Microbiology - Last 24 Hours (Table) 03/27/23 18:06 Anaerobic Culture - Preliminary Chest 03/27/23 18:06 Wound Culture - Preliminary Chest Assessment and Plan (1) Sepsis Status: Acute Code(s): A41.9 - SEPSIS, UNSPECIFIED ORGANISM SNOMED Code(s): 24971907 (2) Surgical wound dehiscence Status: Acute Code(s): T81.31XA - DISRUPTION OF EXTERNAL OPERATION (SURGICAL) WOUND, NEC, INIT SNOMED Code(s): 02677044 Plan: Patient presented to hospital with sepsis in this patient with a fever tachycardia elevated white count source being sternal wound infection with dehiscence of the lower end of the incision patient did have abnormal CT with multiple foci of air and now with evidence for significant purulent drainage on examination patient would likely benefit from surgical debridement and removal of any infected wires or hardware in the infected wound bed in order to help heal this infection, patient RN to contact the CT surgery with above recommendation 2-local culture has been obtained and will also obtain blood culture and check inflammatory markers 3-vancomycin pharmacy to dose with a target trough of 15 while watching kidney function and Vanco trough closely. We will follow on clinical condition and cultures to further adjust medication if needed Thank you for this consultation we will follow the patient along with you Time with Patient: Greater than 30
[2023-03-28 20:24] LABS: Glucose,Whole Blood 216 mg/dL (70-110)
[2023-03-28] MEDS: HEPARIN SODIUM 1,000 UN/ML (10ML VL) IV PRN (20:38)
[2023-03-28] MEDS: LATANOPROST 0.005% OPHTH DROPS 2.5 ML BTL BOTH EYES SCH (20:51)
[2023-03-29] MEDS: HEPARIN SOD,PORK IN 0.45% NACL 25,000 UNIT in 0.45% NACL 1 250ML.BAG IV SCH (01:08)
[2023-03-29] MEDS: ACETAMINOPHEN TAB 325 MG TAB PO PRN ×2 (03:20→22:24)
[2023-03-29] MEDS: INSULIN ASPART (NovoLOG) 100 UNIT/ML VIAL SQ SCH ×4 (06:25→21:18)
[2023-03-29 06:26] LABS: Glucose,Whole Blood 139 mg/dL (70-110)
[2023-03-29] MEDS: PANTOPRAZOLE 40 MG TABLET PO SCH (06:27)
--- NOTE | 2023-03-29 07:40 | XR ---
EXAMINATION TYPE: XR chest 2V DATE OF EXAM: 03/29/2023 6:13 AM COMPARISON: Chest radiograph from one day prior. TECHNIQUE: XR chest 2V Frontal and lateral views of the chest. CLINICAL INDICATION:Female, 78 years old with history of post cardiac surgery; FINDINGS: Lungs/Pleura: Improved aeration of lungs on today's exam scattered subtle reticular opacities through out the lungs. No evidence of pneumothorax or large pleural effusion. Pulmonary vascularity: Unremarkable. Heart/mediastinum: Cardiomediastinal silhouette is enlarged and stable. Post valve repair changes. L eft atrial appendage occlusion device is present. Musculoskeletal: No acute osseous pathology. IMPRESSION: Improved aeration of the lungs with cardiomegaly and postsurgical change.
[2023-03-29] MEDS ORDERED: VANCOMYCIN TROUGH DUE 1 EACH MISC MISCELLANE ONE (08:00)
[2023-03-29] MEDS: predniSONE 10 MG TAB PO SCH (08:02)
[2023-03-29] MEDS: METOPROLOL TARTRATE 50 MG TAB PO SCH ×2 (08:03→21:24)
[2023-03-29] MEDS: ASCORBIC ACID 500 MG TAB PO SCH (08:03)
[2023-03-29] MEDS: SPIRONOLACTONE 25 MG TAB PO SCH (08:03)
[2023-03-29] MEDS: FUROSEMIDE 40 MG TAB PO SCH (08:04)
[2023-03-29] MEDS: ATORVASTATIN 10 MG TAB PO SCH (08:04)
[2023-03-29] MEDS: LOSARTAN 50 MG TAB PO SCH (08:04)
[2023-03-29] MEDS: metFORMIN 500 MG TAB PO SCH ×2 (08:04→21:25)
[2023-03-29] MEDS: ASPIRIN 81 MG PO SCH (08:04)
[2023-03-29] MEDS: TROSPIUM CHLORIDE 20 MG TABLET PO SCH ×2 (08:04→21:24)
[2023-03-29] MEDS: MULTIVITAMINS, THERA 1 EACH TAB PO SCH (08:04)
[2023-03-29] MEDS: ALBUTEROL INHALATION PRN ×4 (08:08→20:53)
[2023-03-29 08:30] LABS: Basophils # (A) 0.1 k/uL (0-0.2); Basophils % (A) 1 %; Eosinophils # (A) 0.3 k/uL (0-0.7); Eosinophils % (A) 2 %; HCT 35.8 % (34.0-46.0); HGB 10.5 gm/dL (11.4-16.0); Hypochromasia Marked; Lymphocytes # (A) 3.2 k/uL (1.0-4.8); Lymphocytes % (A) 25 %; MCH 25.7 pg (25.0-35.0); MCHC 29.4 g/dL (31.0-37.0); MCV 87.5 fL (80.0-100.0); Mean Platelet Volume 7.2; Monocytes # (A) 0.7 k/uL (0-1.0); Monocytes % (A) 6 %; Neutrophils # (A) 8.2 k/uL (1.3-7.7); Neutrophils % (A) 65 %; Platelet Count 495 k/uL (150-450); RBC 4.09 m/uL (3.80-5.40); RDW 14.8 % (11.5-15.5); WBC 12.7 k/uL (3.8-10.6)
[2023-03-29 09:11] LABS: ALT 20 U/L (4-34); AST 26 U/L (14-36); African American GFR (CKD) >90 (>60 ml/min/1.73 sqM); Albumin 3.3 g/dL (3.5-5.0); Alkaline Phosphatase 90 U/L (38-126); Anion Gap 11 mmol/L; Blood Urea Nitrogen 11 mg/dL (7-17); Calcium 9.3 mg/dL (8.4-10.2); Carbon Dioxide 25 mmol/L (22-30); Chloride 101 mmol/L (98-107); Glucose 108 mg/dL (74-99); Magnesium 1.9 mg/dL (1.6-2.3); Non-African American GFR(CKD) 84 (>60 ml/min/1.73 sqM); Potassium 4.6 mmol/L (3.5-5.1); Sodium 137 mmol/L (137-145); Total Bilirubin 0.5 mg/dL (0.2-1.3); Total Protein 6.6 g/dL (6.3-8.2)
[2023-03-29] MEDS: VANCOMYCIN 1,500 MG in SODIUM CHLORIDE 0.9% 500 ML 500 ML IVPB SCH (09:14)
[2023-03-29 10:09] LABS: Erythrocyte Sedimentation Rate 97 mm/hr (0-20)
[2023-03-29 10:13] LABS: C Reactive Protein 18.3 mg/dL (<1.0)
--- NOTE | 2023-03-29 11:34 | P.PN ---
Subjective Progress Note Date: 03/29/23 Principal diagnosis: Sternal incision dehiscence with superficial infection, leukocytosis, lactic acidosis. History of coronary artery disease with left main disease and moderate to severe mitral regurgitation status post 2 vessel CABG and mitral valve repair 03/02/23, left lower extremity DVT on eliquis outpatient, cardiomyopathy/chronic systolic heart failure with decreased systolic functionand EF 35%, hypertriglyceridemia, asthma with multiple exacerbations and chronic steroids, severe restrictive lung disease, diabetes mellitus, previous tobacco dependence, GERD, osteoarthritis, COVID-19 infection in September 2022 The patient was seen and examined this morning sitting up in a recliner on the cardiac stepdown unit with Dr. Astorga in no acute distress. Remains in sinus rhythm, hemodynamically stable, on room air, remains afebrile. Does complain of mild postoperative pain controlled with Tylenol. Patient has been ambulatory in her room. Being seen by PT/OT. First set of wound cultures sent by wound care 03/27/23 preliminarily growing presumptive staph. Dr. Arzate was consulted yesterday by internal medicine, when seeing the patient her sternal incision drained quite a bit and another set of cultures were sent. Remains on vancomycin. Upon assessment this morning with Dr. Astorga there is no drainage from the site, in fact the site doesn't appear with any clear infectious tissue, appears with granulation tissue. Recommendation from Dr. Astorga is for wet-to- dry dressing change daily, no absorptive silver, no surgical debridement planned. Will stop IV heparin and restart Eliquis. Recommend discharge to home with home care tomorrow on oral antibiotics with follow up in wound care center Thursday as scheduled. Objective - Vital Signs Vital signs: Vital Signs Temp 98.4 F 03/29/23 08:10 Pulse 97 03/29/23 08:10 Resp 18 03/29/23 08:10 BP 110/76 03/29/23 08:10 Pulse Ox 97 03/29/23 08:11 FiO2 Intake & Output 03/28/23 03/29/23 03/29/23 18:59 06:59 18:59 Intake Total 1296.17 897.235 874.831 Output Total 1425 300 Balance -128.83 897.235 574.831 Weight 74.8 kg Intake: IV 120 130 .9@10 120 120 Invasive Line 2 10 Intake, IV Titration 576.17 172.235 564.831 Amount Heparin Sod,Pork in 0.45% 76.17 172.235 64.831 NaCl 25,000 unit In 0.45 % NaCl 1 250ml.bag @ 12 UNITS/KG/HR 9.308 mls/hr IV .Q24H [facility] Rx#: [id number] Vancomycin 1,500 mg In 500 500 Sodium Chloride 0.9% 500 ml 500 ml @ 167 mls/hr IVPB Q24H [facility] Rx#: [id number] Oral 600 725 180 Output: Urine 1425 300 Other: Voiding Method Toilet Toilet Toilet # Voids 1 1 1 - Exam CONSTITUTIONAL: Appears comfortable, cooperative, no acute distress RESPIRATORY: Lungs sounds diminished bilaterally. Respirations even, nonlabored. Currently on room air with oxygen saturation 97%. Able to achieve 500-750 mL on incentive spirometry. Strong nonproductive cough. CARDIOVASCULAR: S1, S2 present. Regular rate and rhythm, sinus rhythm on telemetry. Sternum stable. Palpable peripheral pulses bilaterally. No edema present. No calf pain or tenderness noted. Heart hugger in place with patient demonstrating appropriate use. Antiembolism stockings, SCDs present. GASTROINTESTINAL: Abdomen soft, nontender, nondistended. Active bowel sounds present 4 quadrants. Tolerating diet. GENITOURINARY: Continues to void although sometimes incontinent INTEGUMENTARY: Skin is warm and dry. Anterior chest incision dehisced, granulation tissue present, dry dressing present. Left lower extremity EVH site well approximated without redness or drainage. NEUROLOGIC: Cranial nerves II through XII intact MUSKULOSKELETAL: Able to move all extremities, strength equal bilaterally PSYCHIATRIC: Alert and oriented to person place and time, appropriate affect, intact judgment and insight - Allied health notes Allied health notes reviewed: nursing - Labs CBC & Chem 7: 03/29/23 08:14 03/29/23 08:14 Labs: Abnormal Lab Results - Last 24 Hours (Table) 03/28/23 03/28/23 03/28/23 Range/Units 11:49 16:41 19:15 WBC (3.8-10.6) k/uL Hgb (11.4-16.0) gm/dL MCHC (31.0-37.0) g/dL Plt Count (150-450) k/uL Neutrophils # (1.3-7.7) k/uL ESR (0-20) mm/hr APTT 42.9 H (22.0-30.0) sec Glucose (74-99) mg/dL POC Glucose (mg/dL) 147 H 190 H (70-110) mg/dL C-Reactive Protein (<1.0) mg/dL Albumin (3.5-5.0) g/dL 03/28/23 03/29/23 03/29/23 Range/Units 20:20 02:24 06:25 WBC (3.8-10.6) k/uL Hgb (11.4-16.0) gm/dL MCHC (31.0-37.0) g/dL Plt Count (150-450) k/uL Neutrophils # (1.3-7.7) k/uL ESR (0-20) mm/hr APTT 73.8 H (22.0-30.0) sec Glucose (74-99) mg/dL POC Glucose (mg/dL) 216 H 139 H (70-110) mg/dL C-Reactive Protein (<1.0) mg/dL Albumin (3.5-5.0) g/dL 03/29/23 03/29/23 03/29/23 Range/Units 08:14 08:14 08:14 WBC 12.7 H (3.8-10.6) k/uL Hgb 10.5 L (11.4-16.0) gm/dL MCHC 29.4 L (31.0-37.0) g/dL Plt Count 495 H (150-450) k/uL Neutrophils # 8.2 H (1.3-7.7) k/uL ESR 97 H (0-20) mm/hr APTT 64.8 H (22.0-30.0) sec Glucose 108 H (74-99) mg/dL POC Glucose (mg/dL) (70-110) mg/dL C-Reactive Protein 18.3 H (<1.0) mg/dL Albumin 3.3 L (3.5-5.0) g/dL Microbiology - Last 24 Hours (Table) 03/28/23 10:48 Anaerobic Culture - Preliminary Chest 03/28/23 10:48 Wound Culture - Preliminary Chest 03/27/23 18:06 Gram Stain - Preliminary Chest Wound Culture - Preliminary Presumptive Staph aureus - Imaging and Cardiology Chest x-ray: report reviewed, image reviewed Assessment and Plan Assessment: Sternal incision dehiscence with SUPERFICIAL infection, 03/27/23 preliminary gram stain positive for presumptive staph Leukocytosis, resolving Lactic acidosis, resolved History of coronary artery disease with left main disease status post 2 vessel CABG 03/02/23 History of moderate to severe mitral regurgitation status post mitral valve repair 03/02/2023 Postoperative hypotension and acute delirium, resolved Left lower extremity DVT on eliquis outpatient, last dose 03/25/23 am Cardiomyopathy/chronic systolic heart failure with decreased systolic functionand EF 35% Hypertriglyceridemia, TG 201 Asthma with multiple exacerbations and chronic steroids Severe restrictive lung disease, FEV1 42% of predicted Diabetes mellitus, A1c 6.9% Previous tobacco dependence GERD Osteoarthritis COVID-19 infection in September 2022 Plan: Dr. Astorga evaluated patient this morning, no surgical intervention warranted Wet to dry dressing change daily and prn Will restart Eliquis, DC IV heparin Continue IV antibiotics today, change to oral tomorrow. Patient has rash reaction to sulfa, GERD reaction to doxy, possibly clindamycin? Continue home medications Sternal precautions remain in place Incentive spirometry encouraged Increase activity as tolerated, PT/OT following Monitor blood sugars closely, hyperglycemia contributes to infection especially since patient is on chronic steroids Will monitor daily labs and CXR Recommend discharge to home with home care tomorrow with follow up in wound care center as scheduled More recommendations to follow
[2023-03-29 11:43] LABS: Glucose,Whole Blood 192 mg/dL (70-110)
[2023-03-29] MEDS: APIXABAN 5 MG TAB PO SCH ×2 (12:01→21:25)
[2023-03-29] MEDS: MAGNESIUM SULFATE-D5W PMX 1 GM in DEXTROSE/WATER 1 100ML.BAG IVPB SCH ×2 (12:01→13:46)
--- NOTE | 2023-03-29 12:57 | P.PN ---
Subjective Progress Note Date: 03/29/23 This is a 78-year-old female who presented to the emergency department with chest wall pain at her surgical site as she recently had mitral valve replacement with CABG approximately one month ago. Patient reports to having some opening of the incisional site and was seen at the cardiothoracic surgery office. Patient reports she did have chills the night before but did not check her temperature. Patient reports she was febrile in the emergency department. Patient follows with Dr. Pearson in the outpatient setting with a past medical history of asthma, coronary artery disease, diabetes mellitus, GERD, hyperlipidemia, Osteoarthritis, cardiomyopathy. Patient denies drug use or tobacco use and denies any alcohol use. Dr. Jackson of cardiothoracic surgery evaluated the patient requesting to be admitted to medicine service with them on consult. Wound care was also consulted. Patient was started on vancomycin and also being started on heparin IV. EKG showed sinus tachycardia, chest x-ray showed cardiomegaly without suspicious new acute pulmonary process. Chest CT was done showing sternotomy changes with fat stranding along the superficial and deep aspects of the sternum some of this may be secondary to healing changes and multiple foci of gas present in the superficial surgical bed just anterior to the sternum with superimposed infection and surgery was noted to be on 03/02/2023. No drainable fluid collection visualized at the superficial and deep portions however also reports CT is not great differential eating softer tissues and there is a trace right pleural effusion. Home medications have been reviewed and resumed and would recommend diabetes management with tight glycemic control and Accu-Cheks before meals and at bedtime 03/28. Patient seen and examined. Nursing staff noticed a lot of purulent discharge from the sternotomy incision site . Patient denies any fever. Complaining of pain at the site of surgery Lab work this morning showed white count 14.4, hemoglobin 9.1, sodium 136, potassium 4.1, chloride 100, BUN 17, creatinine 0.82 5/7. Patient seen and examined. WBC this morning is 12.7, hemoglobin 10.5, sodium 137, potassium 4.6, BUN 11 creatinine 0.7. States chest pain is improved compared to yesterday, not much discharge this morning REVIEW OF SYSTEMS: CONSTITUTIONAL: No fever, no malaise,. CARDIOVASCULAR: No chest pain, no palpitations, no syncope. PULMONARY: No shortness of breath, no cough, GASTROINTESTINAL: No diarrhea, no nausea, no vomiting, no abdominal pain. NEUROLOGICAL: No headaches, no weakness, PHYSICAL EXAMINATION: GENERAL: The patient is alert and oriented x3, not in any acute distress. Well developed, well nourished. HEENT: Pupils are round and equally reacting to light. EOMI. No scleral icterus. No conjunctival pallor. Normocephalic, atraumatic. No pharyngeal erythema. No thyromegaly. CARDIOVASCULAR: S1 and S2 present. No murmurs, rubs, or gallops. Sternotomy surgical incision seen PULMONARY: Chest is clear to auscultation, no wheezing or crackles. ABDOMEN: Soft, nontender, nondistended, normoactive bowel sounds. No palpable organomegaly. MUSCULOSKELETAL: No joint swelling or deformity. EXTREMITIES: No cyanosis, clubbing, or pedal edema. NEUROLOGICAL: Gross neurological examination did not reveal any focal deficits. SKIN: No rashes. Assessment and plan Sepsis Recent CABG on 03/02/2023 with sternal incision site dehiscence with infection Leukocytosis, secondary to above Lactic acidosis, present on admission secondary to above, improved History of moderate to severe mitral regurgitation with mitral valve repair during CABG on 03/02/2023 Recent readmission with left lower extremity pain, positive for DVT started on eliquis Cardiomyopathy History of congestive heart failure, systolic dysfunction with most recent EF being 35% Diabetes mellitus GERD History of asthma, not in exacerbation Former smoker Hyperlipidemia Plan; Monitor vital signs Monitor CBC Monitor CMP Continue telemetry monitoring Continue wound care Continue pharmacy dose vancomycin DC heparin, restart Eliquis Follow-up in ID recs CT surgery following Objective - Vital Signs Vital signs: Vital Signs Temp 98.4 F 03/29/23 08:10 Pulse 97 03/29/23 08:10 Resp 18 03/29/23 08:10 BP 110/76 03/29/23 08:10 Pulse Ox 97 03/29/23 08:11 FiO2 Intake & Output 03/28/23 03/29/23 03/29/23 18:59 06:59 18:59 Intake Total 1296.17 897.235 874.831 Output Total 1425 300 Balance -128.83 897.235 574.831 Weight 74.8 kg Intake: IV 120 130 .9@10 120 120 Invasive Line 2 10 Intake, IV Titration 576.17 172.235 564.831 Amount Heparin Sod,Pork in 0.45% 76.17 172.235 64.831 NaCl 25,000 unit In 0.45 % NaCl 1 250ml.bag @ 12 UNITS/KG/HR 9.308 mls/hr IV .Q24H [facility] Rx#: [id number] Vancomycin 1,500 mg In 500 500 Sodium Chloride 0.9% 500 ml 500 ml @ 167 mls/hr IVPB Q24H [facility] Rx#: [id number] Oral 600 725 180 Output: Urine 1425 300 Other: Voiding Method Toilet Toilet Toilet # Voids 1 1 1 - Labs CBC & Chem 7: 03/29/23 08:14 03/29/23 08:14 Labs: Abnormal Lab Results - Last 24 Hours (Table) 03/28/23 03/28/23 03/28/23 Range/Units 11:49 16:41 19:15 WBC (3.8-10.6) k/uL Hgb (11.4-16.0) gm/dL MCHC (31.0-37.0) g/dL Plt Count (150-450) k/uL Neutrophils # (1.3-7.7) k/uL ESR (0-20) mm/hr APTT 42.9 H (22.0-30.0) sec Glucose (74-99) mg/dL POC Glucose (mg/dL) 147 H 190 H (70-110) mg/dL C-Reactive Protein (<1.0) mg/dL Albumin (3.5-5.0) g/dL 03/28/23 03/29/23 03/29/23 Range/Units 20:20 02:24 06:25 WBC (3.8-10.6) k/uL Hgb (11.4-16.0) gm/dL MCHC (31.0-37.0) g/dL Plt Count (150-450) k/uL Neutrophils # (1.3-7.7) k/uL ESR (0-20) mm/hr APTT 73.8 H (22.0-30.0) sec Glucose (74-99) mg/dL POC Glucose (mg/dL) 216 H 139 H (70-110) mg/dL C-Reactive Protein (<1.0) mg/dL Albumin (3.5-5.0) g/dL 03/29/23 03/29/23 03/29/23 Range/Units 08:14 08:14 08:14 WBC 12.7 H (3.8-10.6) k/uL Hgb 10.5 L (11.4-16.0) gm/dL MCHC 29.4 L (31.0-37.0) g/dL Plt Count 495 H (150-450) k/uL Neutrophils # 8.2 H (1.3-7.7) k/uL ESR 97 H (0-20) mm/hr APTT 64.8 H (22.0-30.0) sec Glucose 108 H (74-99) mg/dL POC Glucose (mg/dL) (70-110) mg/dL C-Reactive Protein 18.3 H (<1.0) mg/dL Albumin 3.3 L (3.5-5.0) g/dL Microbiology - Last 24 Hours (Table) 03/28/23 10:48 Anaerobic Culture - Preliminary Chest 03/28/23 10:48 Wound Culture - Preliminary Chest 03/27/23 18:06 Gram Stain - Preliminary Chest Wound Culture - Preliminary Presumptive Staph aureus
--- NOTE | 2023-03-29 16:05 | P.PN ---
Subjective Progress Note Date: 03/29/23 Principal diagnosis: Sternal wound infection Patient is a 78-year-old -[place] female with a past medical history significant for coronary artery disease in this patient with status post two- vessel coronary bypass grafting and mitral valve repair on 03/02/2023 , presented to hospital with fever lower sternal wound dehiscence with purulent drainage and abnormal CT. On today's evaluation that is 03/29/2023, the patient is afebrile the patient is breathing comfortably currently on room air patient pain to the sternal wound/incision has decreased in intensity did have a minimal drainage on the dressing to the nursing staff no nausea no vomiting no abdominal pain or helga rrhea Objective - Vital Signs Vital signs: Vital Signs Temp 98.3 F 03/29/23 12:03 Pulse 87 03/29/23 12:03 Resp 18 03/29/23 12:03 BP 105/67 03/29/23 12:03 Pulse Ox 99 03/29/23 12:03 FiO2 Intake & Output 03/28/23 03/29/23 03/29/23 18:59 06:59 18:59 Intake Total 1296.17 561.340 4630.565 Output Total 1425 1250 Balance -128.83 897.235 548.565 Weight 74.8 kg Intake: IV 120 130 .9@10 120 120 Invasive Line 2 10 Intake, IV Titration 576.17 344.533 2455.565 Amount Heparin Sod,Pork in 0.45% 76.17 172.235 108.565 NaCl 25,000 unit In 0.45 % NaCl 1 250ml.bag @ 12 UNITS/KG/HR 9.308 mls/hr IV .Q24H [facility] Rx#: [id number] Magnesium Sulfate-D5w Pmx 200 1 gm In Dextrose/Water 1 100ml.bag @ 100 mls/hr IVPB Q1H [facility] Rx#: [id number] Vancomycin 1,500 mg In 500 1000 Sodium Chloride 0.9% 500 ml 500 ml @ 167 mls/hr IVPB Q24H [facility] Rx#: [id number] Oral 600 725 360 Output: Urine 1425 1250 Other: Voiding Method Toilet Toilet Toilet # Voids 1 1 1 - Exam GENERAL DESCRIPTION: An elderly female lying in bed in no distress RESPIRATORY SYSTEM: Unlabored breathing , decreased breath sounds at bases HEART: S1 S2 regular rate and rhythm , lower sternal wound base with no slough tissue no further drainage was noticed today ABDOMEN: Soft , no tenderness EXTREMITIES: No edema feet - Labs CBC & Chem 7: 03/29/23 08:14 03/29/23 08:14 Labs: Abnormal Lab Results - Last 24 Hours (Table) 03/28/23 03/28/23 03/28/23 Range/Units 16:41 19:15 20:20 WBC (3.8-10.6) k/uL Hgb (11.4-16.0) gm/dL MCHC (31.0-37.0) g/dL Plt Count (150-450) k/uL Neutrophils # (1.3-7.7) k/uL ESR (0-20) mm/hr APTT 42.9 H (22.0-30.0) sec Glucose (74-99) mg/dL POC Glucose (mg/dL) 190 H 216 H (70-110) mg/dL C-Reactive Protein (<1.0) mg/dL Albumin (3.5-5.0) g/dL 03/29/23 03/29/23 03/29/23 Range/Units 02:24 06:25 08:14 WBC 12.7 H (3.8-10.6) k/uL Hgb 10.5 L (11.4-16.0) gm/dL MCHC 29.4 L (31.0-37.0) g/dL Plt Count 495 H (150-450) k/uL Neutrophils # 8.2 H (1.3-7.7) k/uL ESR 97 H (0-20) mm/hr APTT 73.8 H (22.0-30.0) sec Glucose (74-99) mg/dL POC Glucose (mg/dL) 139 H (70-110) mg/dL C-Reactive Protein (<1.0) mg/dL Albumin (3.5-5.0) g/dL 03/29/23 03/29/23 03/29/23 Range/Units 08:14 08:14 11:42 WBC (3.8-10.6) k/uL Hgb (11.4-16.0) gm/dL MCHC (31.0-37.0) g/dL Plt Count (150-450) k/uL Neutrophils # (1.3-7.7) k/uL ESR (0-20) mm/hr APTT 64.8 H (22.0-30.0) sec Glucose 108 H (74-99) mg/dL POC Glucose (mg/dL) 192 H (70-110) mg/dL C-Reactive Protein 18.3 H (<1.0) mg/dL Albumin 3.3 L (3.5-5.0) g/dL Microbiology - Last 24 Hours (Table) 03/28/23 10:48 Anaerobic Culture - Preliminary Chest 03/28/23 10:48 Wound Culture - Preliminary Chest 03/27/23 18:06 Gram Stain - Preliminary Chest Wound Culture - Preliminary Presumptive Staph aureus Assessment and Plan (1) Sepsis Current Visit: Yes Status: Acute Code(s): A41.9 - SEPSIS, UNSPECIFIED ORGANISM SNOMED Code(s): 09445757 (2) Surgical wound dehiscence Current Visit: No Status: Acute Code(s): T81.31XA - DISRUPTION OF EXTERNAL OPERATION (SURGICAL) WOUND, NEC, INIT SNOMED Code(s): 54843635 Plan: Patient presented to hospital with sepsis in this patient with a fever tachycardia elevated white count source being sternal wound infection with dehiscence of the lower end of the incision patient did have abnormal CT with multiple foci of air and now with evidence for significant purulent drainage on examination patient has been reevaluated by CT surgery did not recommend any surgical debridement 2-local culture currently growing staph aureus with sensitivities pending, patient did have elevated inflammatory markers 3-patient to continue with vancomycin pharmacy to dose with a target trough of 15 while waiting for the cultures to finalize Time with Patient: Less than 30
[2023-03-29 16:22] LABS: Glucose,Whole Blood 173 mg/dL (70-110)
[2023-03-29 20:15] LABS: Glucose,Whole Blood 135 mg/dL (70-110)
[2023-03-29] MEDS: LATANOPROST 0.005% OPHTH DROPS 2.5 ML BTL BOTH EYES SCH (21:25)
[2023-03-30] MEDS ORDERED: VANCOMYCIN 1,500 MG in SODIUM CHLORIDE 0.9% 500 ML 500 ML IVPB SCH ×2
[2023-03-30] MEDS: ACETAMINOPHEN TAB 325 MG TAB PO PRN (05:31)
[2023-03-30] MEDS: PANTOPRAZOLE 40 MG TABLET PO SCH (05:31)
[2023-03-30] MEDS: INSULIN ASPART (NovoLOG) 100 UNIT/ML VIAL SQ SCH ×4 (05:40→20:18)
[2023-03-30 05:41] LABS: Glucose,Whole Blood 144 mg/dL (70-110)
--- NOTE | 2023-03-30 07:13 | XR ---
EXAMINATION TYPE: XR chest 2V DATE OF EXAM: 03/30/2023 COMPARISON: 03/29/2023 HISTORY: 78-year-old female post cardiac surgery TECHNIQUE: PA and lateral views FINDINGS: Median sternotomy wires are present. Post-CABG clips and annuloplasty ring. Heart borderline enlarged . Diffuse interstitial/vascular prominence remains. There is a trace right pleural effusion which als o persists. No new consolidation. IMPRESSION: Similar mild pulmonary vascular congestion and trace right pleural effusion.
[2023-03-30] MEDS: ALBUTEROL INHALATION PRN ×4 (07:42→21:39)
--- NOTE | 2023-03-30 07:46 | P.PN ---
Subjective Progress Note Date: 03/30/23 Principal diagnosis: Sternal incision dehiscence with superficial infection, leukocytosis, lactic acidosis. History of coronary artery disease with left main disease and moderate to severe mitral regurgitation status post 2 vessel CABG and mitral valve repair 03/02/23, left lower extremity DVT on eliquis outpatient, cardiomyopathy/chronic systolic heart failure with decreased systolic functionand EF 35%, hypertriglyceridemia, asthma with multiple exacerbations and chronic steroids, severe restrictive lung disease, diabetes mellitus, previous tobacco dependence, GERD, osteoarthritis, COVID-19 infection in September 2022 The patient was seen and examined this morning sitting up in a recliner on the cardiac stepdown unit in no acute distress eating breakfast. Remains in sinus rhythm, hemodynamically stable, on room air, remains afebrile. Does complain of mild postoperative pain controlled with Tylenol. Patient has been ambulatory in her room. Being seen by PT/OT. First set of wound cultures sent by wound care 03/27/23 finalized as MSSA, in addition blood cultures from 03/28/23 preliminarily growing staph. Vancomycin discontinued by ID, started on ancef IV. Dressing changed this am, minimal drainage present. Recommendation from Dr. Astorga is for wet-to-dry dressing change daily, no absorptive silver, no surgical debridement planned. Did discuss ASHLEY at discharge if IV antibiotics ordered which Dr. Astorga would be agreeable to, son prefers to take his mom home and is willing to infuse IV antibiotics if that is the recommendation. Recommend discharge to home with home care when able with follow up in wound care center. Objective - Vital Signs Vital signs: Vital Signs Temp 98.4 F 03/30/23 03:50 Pulse 94 03/30/23 03:50 Resp 18 03/30/23 03:50 BP 137/84 03/30/23 03:50 Pulse Ox 100 03/30/23 03:50 FiO2 Intake & Output 03/29/23 03/30/23 03/30/23 18:59 06:59 18:59 Intake Total 1798.565 Output Total 1250 Balance 548.565 Weight 74.8 kg 74.7 kg Intake: IV 130 .9@10 120 Invasive Line 2 10 Intake, IV Titration 1308.565 Amount Heparin Sod,Pork in 0.45% 108.565 NaCl 25,000 unit In 0.45 % NaCl 1 250ml.bag @ 12 UNITS/KG/HR 9.308 mls/hr IV .Q24H [facility] Rx#: [id number] Magnesium Sulfate-D5w Pmx 200 1 gm In Dextrose/Water 1 100ml.bag @ 100 mls/hr IVPB Q1H [facility] Rx#: [id number] Vancomycin 1,500 mg In 1000 Sodium Chloride 0.9% 500 ml 500 ml @ 167 mls/hr IVPB Q24H [facility] Rx#: [id number] Oral 360 Output: Urine 1250 Other: Voiding Method Toilet Toilet # Voids 1 3 - Exam CONSTITUTIONAL: Appears comfortable, cooperative, no acute distress RESPIRATORY: Lungs sounds diminished bilaterally. Respirations even, nonlabored. Currently on room air with oxygen saturation 100%. Able to achieve 1000 mL on incentive spirometry. Strong nonproductive cough. CARDIOVASCULAR: S1, S2 present. Regular rate and rhythm, sinus rhythm on telemetry. Sternum stable. Palpable peripheral pulses bilaterally. No edema present. No calf pain or tenderness noted. Heart hugger in place with patient demonstrating appropriate use. Antiembolism stockings, SCDs present. GASTROINTESTINAL: Abdomen soft, nontender, nondistended. Active bowel sounds present 4 quadrants. Tolerating diet. GENITOURINARY: Continues to void although sometimes incontinent INTEGUMENTARY: Skin is warm and dry. Anterior chest incision dehisced, granulation tissue present. Left lower extremity EVH site well approximated without redness or drainage. NEUROLOGIC: Cranial nerves II through XII intact MUSKULOSKELETAL: Able to move all extremities, strength equal bilaterally PSYCHIATRIC: Alert and oriented to person place and time, appropriate affect, intact judgment and insight - Allied health notes Allied health notes reviewed: nursing - Labs CBC & Chem 7: 03/30/23 07:07 03/30/23 07:07 Labs: Abnormal Lab Results - Last 24 Hours (Table) 03/29/23 03/29/23 03/29/23 Range/Units 08:14 08:14 08:14 WBC 12.7 H (3.8-10.6) k/uL Hgb 10.5 L (11.4-16.0) gm/dL MCHC 29.4 L (31.0-37.0) g/dL Plt Count 495 H (150-450) k/uL Neutrophils # 8.2 H (1.3-7.7) k/uL ESR 97 H (0-20) mm/hr APTT 64.8 H (22.0-30.0) sec Glucose 108 H (74-99) mg/dL POC Glucose (mg/dL) (70-110) mg/dL C-Reactive Protein 18.3 H (<1.0) mg/dL Albumin 3.3 L (3.5-5.0) g/dL 03/29/23 03/29/23 03/29/23 Range/Units 11:42 16:21 20:12 WBC (3.8-10.6) k/uL Hgb (11.4-16.0) gm/dL MCHC (31.0-37.0) g/dL Plt Count (150-450) k/uL Neutrophils # (1.3-7.7) k/uL ESR (0-20) mm/hr APTT (22.0-30.0) sec Glucose (74-99) mg/dL POC Glucose (mg/dL) 192 H 173 H 135 H (70-110) mg/dL C-Reactive Protein (<1.0) mg/dL Albumin (3.5-5.0) g/dL 03/30/23 Range/Units 05:39 WBC (3.8-10.6) k/uL Hgb (11.4-16.0) gm/dL MCHC (31.0-37.0) g/dL Plt Count (150-450) k/uL Neutrophils # (1.3-7.7) k/uL ESR (0-20) mm/hr APTT (22.0-30.0) sec Glucose (74-99) mg/dL POC Glucose (mg/dL) 144 H (70-110) mg/dL C-Reactive Protein (<1.0) mg/dL Albumin (3.5-5.0) g/dL Microbiology - Last 24 Hours (Table) 03/28/23 10:48 Anaerobic Culture - Preliminary Chest 03/28/23 10:48 Wound Culture - Preliminary Chest 03/27/23 18:06 Gram Stain - Preliminary Chest Wound Culture - Preliminary Presumptive Staph aureus - Imaging and Cardiology Chest x-ray: report reviewed, image reviewed Assessment and Plan Assessment: Sternal incision dehiscence with SUPERFICIAL infection, 03/27/23 preliminary gram stain positive for presumptive staph Leukocytosis, resolving Lactic acidosis, resolved History of coronary artery disease with left main disease status post 2 vessel CABG 03/02/23 History of moderate to severe mitral regurgitation status post mitral valve repair 03/02/2023 Postoperative hypotension and acute delirium, resolved Left lower extremity DVT on eliquis outpatient, last dose 03/25/23 am Cardiomyopathy/chronic systolic heart failure with decreased systolic functionand EF 35% Hypertriglyceridemia, TG 201 Asthma with multiple exacerbations and chronic steroids Severe restrictive lung disease, FEV1 42% of predicted Diabetes mellitus, A1c 6.9% Previous tobacco dependence GERD Osteoarthritis COVID-19 infection in September 2022 Plan: Dr. Astorga evaluated patient, no surgical intervention warranted Wet to dry dressing change daily and prn Eliquis restarted yesterday Recommend change to oral antibiotics when able Shower daily Continue home medications Sternal precautions remain in place Incentive spirometry encouraged Increase activity as tolerated, PT/OT following Monitor blood sugars closely, hyperglycemia contributes to infection especially since patient is on chronic steroids Will monitor daily labs and CXR Recommend discharge to home with home care with follow up in wound care center More recommendations to follow
[2023-03-30 07:59] LABS: Basophils # (A) 0.1 k/uL (0-0.2); Basophils % (A) 1 %; Eosinophils # (A) 0.3 k/uL (0-0.7); Eosinophils % (A) 3 %; HCT 32.6 % (34.0-46.0); HGB 9.7 gm/dL (11.4-16.0); Hypochromasia Marked; Lymphocytes # (A) 2.4 k/uL (1.0-4.8); Lymphocytes % (A) 23 %; MCH 25.5 pg (25.0-35.0); MCHC 29.7 g/dL (31.0-37.0); MCV 85.8 fL (80.0-100.0); Mean Platelet Volume 7.3; Monocytes # (A) 0.6 k/uL (0-1.0); Monocytes % (A) 6 %; Neutrophils # (A) 6.7 k/uL (1.3-7.7); Neutrophils % (A) 65 %; Platelet Count 438 k/uL (150-450); Poikilocytosis Slight; RDW 14.9 % (11.5-15.5); WBC 10.4 k/uL (3.8-10.6)
[2023-03-30] MEDS: TROSPIUM CHLORIDE 20 MG TABLET PO SCH ×2 (08:16→20:19)
[2023-03-30] MEDS: metFORMIN 500 MG TAB PO SCH ×2 (08:16→20:19)
[2023-03-30] MEDS: APIXABAN 5 MG TAB PO SCH ×2 (08:16→20:18)
[2023-03-30] MEDS: ASCORBIC ACID 500 MG TAB PO SCH (08:16)
[2023-03-30] MEDS: LOSARTAN 50 MG TAB PO SCH (08:16)
[2023-03-30] MEDS: ATORVASTATIN 10 MG TAB PO SCH (08:16)
[2023-03-30] MEDS: METOPROLOL TARTRATE 50 MG TAB PO SCH ×2 (08:16→20:19)
[2023-03-30] MEDS: ASPIRIN 81 MG PO SCH (08:16)
[2023-03-30] MEDS: MULTIVITAMINS, THERA 1 EACH TAB PO SCH (08:16)
[2023-03-30] MEDS: FUROSEMIDE 40 MG TAB PO SCH (08:17)
[2023-03-30] MEDS: predniSONE 10 MG TAB PO SCH (08:17)
[2023-03-30] MEDS: SPIRONOLACTONE 25 MG TAB PO SCH (08:17)
[2023-03-30 08:24] LABS: Calcium 9.1 mg/dL (8.4-10.2); Magnesium 1.8 mg/dL (1.6-2.3); Potassium 4.5 mmol/L (3.5-5.1); Total Bilirubin 0.3 mg/dL (0.2-1.3); Total Protein 5.9 g/dL (6.3-8.2)
--- NOTE | 2023-03-30 11:03 | P.PN ---
Subjective Progress Note Date: 03/30/23 Principal diagnosis: Sternal wound infection Patient is a 78-year-old -[place] female with a past medical history significant for coronary artery disease in this patient with status post two- vessel coronary bypass grafting and mitral valve repair on 03/02/2023 , presented to hospital with fever lower sternal wound dehiscence with purulent drainage and abnormal CT. On today's evaluation that is 03/30/2023, the patient remains to be afebrile the patient is breathing comfortably on room air , the patient still complaining of pain to the sternal wound/incision about 5 or 10 and did have a minimal drainage , patient did have some nausea but no vomiting no abdominal pain or diarrhea Objective - Vital Signs Vital signs: Vital Signs Temp 98.5 F 03/30/23 08:08 Pulse 101 H 03/30/23 08:08 Resp 20 03/30/23 08:08 BP 125/74 03/30/23 08:08 Pulse Ox 100 03/30/23 08:08 FiO2 21 03/30/23 07:42 Intake & Output 03/29/23 03/30/23 03/30/23 18:59 06:59 18:59 Intake Total 1798.565 Output Total 1250 Balance 548.565 Weight 74.8 kg 74.7 kg Intake: IV 130 .9@10 120 Invasive Line 2 10 Intake, IV Titration 1308.565 Amount Heparin Sod,Pork in 0.45% 108.565 NaCl 25,000 unit In 0.45 % NaCl 1 250ml.bag @ 12 UNITS/KG/HR 9.308 mls/hr IV .Q24H [facility] Rx#: [id number] Magnesium Sulfate-D5w Pmx 200 1 gm In Dextrose/Water 1 100ml.bag @ 100 mls/hr IVPB Q1H [facility] Rx#: [id number] Vancomycin 1,500 mg In 1000 Sodium Chloride 0.9% 500 ml 500 ml @ 167 mls/hr IVPB Q24H [facility] Rx#: [id number] Oral 360 Output: Urine 1250 Other: Voiding Method Toilet Toilet Toilet # Voids 1 3 - Exam GENERAL DESCRIPTION: An elderly female lying in bed in no distress RESPIRATORY SYSTEM: Unlabored breathing , decreased breath sounds at bases HEART: S1 S2 regular rate and rhythm , lower sternal wound base with no slough tissue no further drainage was noticed today ABDOMEN: Soft , no tenderness EXTREMITIES: No edema feet - Labs CBC & Chem 7: 03/30/23 07:07 03/30/23 07:07 Labs: Abnormal Lab Results - Last 24 Hours (Table) 03/29/23 03/29/23 03/29/23 Range/Units 08:14 08:14 11:42 Hgb (11.4-16.0) gm/dL Hct (34.0-46.0) % MCHC (31.0-37.0) g/dL ESR 97 H (0-20) mm/hr Glucose 108 H (74-99) mg/dL POC Glucose (mg/dL) 192 H (70-110) mg/dL C-Reactive Protein 18.3 H (<1.0) mg/dL Total Protein (6.3-8.2) g/dL Albumin 3.3 L (3.5-5.0) g/dL 03/29/23 03/29/23 03/30/23 Range/Units 16:21 20:12 05:39 Hgb (11.4-16.0) gm/dL Hct (34.0-46.0) % MCHC (31.0-37.0) g/dL ESR (0-20) mm/hr Glucose (74-99) mg/dL POC Glucose (mg/dL) 173 H 135 H 144 H (70-110) mg/dL C-Reactive Protein (<1.0) mg/dL Total Protein (6.3-8.2) g/dL Albumin (3.5-5.0) g/dL 03/30/23 03/30/23 Range/Units 07:07 07:07 Hgb 9.7 L (11.4-16.0) gm/dL Hct 32.6 L (34.0-46.0) % MCHC 29.7 L (31.0-37.0) g/dL ESR (0-20) mm/hr Glucose 103 H (74-99) mg/dL POC Glucose (mg/dL) (70-110) mg/dL C-Reactive Protein (<1.0) mg/dL Total Protein 5.9 L (6.3-8.2) g/dL Albumin 3.0 L (3.5-5.0) g/dL Microbiology - Last 24 Hours (Table) 03/28/23 10:48 Gram Stain - Preliminary Chest Wound Culture - Preliminary 03/28/23 10:48 Anaerobic Culture - Preliminary Chest 03/27/23 18:06 Gram Stain - Preliminary Chest Wound Culture - Preliminary Presumptive Staph aureus Assessment and Plan (1) Sepsis Current Visit: Yes Status: Acute Code(s): A41.9 - SEPSIS, UNSPECIFIED ORGANISM SNOMED Code(s): 89094826 (2) Surgical wound dehiscence Current Visit: No Status: Acute Code(s): T81.31XA - DISRUPTION OF EXTERNAL OPERATION (SURGICAL) WOUND, NEC, INIT SNOMED Code(s): 95198688 Plan: Patient presented to hospital with sepsis in this patient with a fever tachycardia elevated white count source being sternal wound infection with dehiscence of the lower end of the incision patient did have abnormal CT with multiple foci of air and now with evidence for significant purulent drainage on examination patient has been reevaluated by CT surgery did not recommend any surgical debridement 2Local cultures have been finalized with MSSA, patient did have elevated inflammatory markers 3We will discontinue vancomycin and start the patient cefazolin 2 g every 8 hours and continue local wound care per surgery Time with Patient: Less than 30
[2023-03-30 11:54] LABS: Glucose,Whole Blood 144 mg/dL (70-110)
[2023-03-30] MEDS: MAGNESIUM SULFATE-D5W PMX 1 GM in DEXTROSE/WATER 1 100ML.BAG IVPB SCH ×2 (12:16→13:23)
--- NOTE | 2023-03-30 13:05 | P.PN ---
Subjective Progress Note Date: 03/30/23 This is a 78-year-old female who presented to the emergency department with chest wall pain at her surgical site as she recently had mitral valve replacement with CABG approximately one month ago. Patient reports to having some opening of the incisional site and was seen at the cardiothoracic surgery office. Patient reports she did have chills the night before but did not check her temperature. Patient reports she was febrile in the emergency department. Patient follows with Dr. Pearson in the outpatient setting with a past medical history of asthma, coronary artery disease, diabetes mellitus, GERD, hyperlipidemia, Osteoarthritis, cardiomyopathy. Patient denies drug use or tobacco use and denies any alcohol use. Dr. Jackson of cardiothoracic surgery evaluated the patient requesting to be admitted to medicine service with them on consult. Wound care was also consulted. Patient was started on vancomycin and also being started on heparin IV. EKG showed sinus tachycardia, chest x-ray showed cardiomegaly without suspicious new acute pulmonary process. Chest CT was done showing sternotomy changes with fat stranding along the superficial and deep aspects of the sternum some of this may be secondary to healing changes and multiple foci of gas present in the superficial surgical bed just anterior to the sternum with superimposed infection and surgery was noted to be on 03/02/2023. No drainable fluid collection visualized at the superficial and deep portions however also reports CT is not great differential eating softer tissues and there is a trace right pleural effusion. Home medications have been reviewed and resumed and would recommend diabetes management with tight glycemic control and Accu-Cheks before meals and at bedtime 03/28. Patient seen and examined. Nursing staff noticed a lot of purulent discharge from the sternotomy incision site . Patient denies any fever. Complaining of pain at the site of surgery Lab work this morning showed white count 14.4, hemoglobin 9.1, sodium 136, potassium 4.1, chloride 100, BUN 17, creatinine 0.82 03/29. Patient seen and examined. WBC this morning is 12.7, hemoglobin 10.5, sodium 137, potassium 4.6, BUN 11 creatinine 0.7. States chest pain is improved compared to yesterday, not much discharge this morning 03/30. Patient seen and examined. No acute issues overnight. Vital signs stable. Patient still noticing purulent discharge from her sternotomy site REVIEW OF SYSTEMS: CONSTITUTIONAL: No fever, no malaise,. CARDIOVASCULAR: No chest pain, no palpitations, no syncope. PULMONARY: No shortness of breath, no cough, GASTROINTESTINAL: No diarrhea, no nausea, no vomiting, no abdominal pain. NEUROLOGICAL: No headaches, no weakness, PHYSICAL EXAMINATION: GENERAL: The patient is alert and oriented x3, not in any acute distress. Well developed, well nourished. HEENT: Pupils are round and equally reacting to light. EOMI. No scleral icterus. No conjunctival pallor. Normocephalic, atraumatic. No pharyngeal erythema. No thyromegaly. CARDIOVASCULAR: S1 and S2 present. No murmurs, rubs, or gallops. Sternotomy surgical incision seen PULMONARY: Chest is clear to auscultation, no wheezing or crackles. Sternotomy incision seen ABDOMEN: Soft, nontender, nondistended, normoactive bowel sounds. No palpable organomegaly. MUSCULOSKELETAL: No joint swelling or deformity. EXTREMITIES: No cyanosis, clubbing, or pedal edema. NEUROLOGICAL: Gross neurological examination did not reveal any focal deficits. SKIN: No rashes. Assessment and plan Sepsis Recent CABG on 03/02/2023 with sternal incision site dehiscence with infection Leukocytosis, secondary to above Lactic acidosis, present on admission secondary to above, improved History of moderate to severe mitral regurgitation with mitral valve repair during CABG on 03/02/2023 Recent readmission with left lower extremity pain, positive for DVT started on eliquis Cardiomyopathy History of congestive heart failure, systolic dysfunction with most recent EF being 35% Diabetes mellitus GERD History of asthma, not in exacerbation Former smoker Hyperlipidemia Plan; Monitor vital signs Monitor CBC Monitor CMP Continue telemetry monitoring Continue wound care Continue pharmacy dose vancomycin Continue Eliquis Follow-up in ID recs, discussed with ID, they recommended to wait for final wound cultures to decide about duration and whether patient needs to be discharged on IV versus oral antibiotics CT surgery following Objective - Vital Signs Vital signs: Vital Signs Temp 98.5 F 03/30/23 08:08 Pulse 101 H 03/30/23 08:08 Resp 20 03/30/23 08:08 BP 125/74 03/30/23 08:08 Pulse Ox 100 03/30/23 08:08 FiO2 21 03/30/23 07:42 Intake & Output 03/29/23 03/30/23 03/30/23 18:59 06:59 18:59 Intake Total 1798.565 Output Total 1250 Balance 548.565 Weight 74.8 kg 74.7 kg Intake: IV 130 .9@10 120 Invasive Line 2 10 Intake, IV Titration 1308.565 Amount Heparin Sod,Pork in 0.45% 108.565 NaCl 25,000 unit In 0.45 % NaCl 1 250ml.bag @ 12 UNITS/KG/HR 9.308 mls/hr IV .Q24H [facility] Rx#: [id number] Magnesium Sulfate-D5w Pmx 200 1 gm In Dextrose/Water 1 100ml.bag @ 100 mls/hr IVPB Q1H [facility] Rx#: [id number] Vancomycin 1,500 mg In 1000 Sodium Chloride 0.9% 500 ml 500 ml @ 167 mls/hr IVPB Q24H [facility] Rx#: [id number] Oral 360 Output: Urine 1250 Other: Voiding Method Toilet Toilet Toilet # Voids 1 3 - Labs CBC & Chem 7: 03/30/23 07:07 03/30/23 07:07 Labs: Abnormal Lab Results - Last 24 Hours (Table) 03/29/23 03/29/23 03/29/23 Range/Units 08:14 08:14 11:42 Hgb (11.4-16.0) gm/dL Hct (34.0-46.0) % MCHC (31.0-37.0) g/dL ESR 97 H (0-20) mm/hr Glucose 108 H (74-99) mg/dL POC Glucose (mg/dL) 192 H (70-110) mg/dL C-Reactive Protein 18.3 H (<1.0) mg/dL Total Protein (6.3-8.2) g/dL Albumin 3.3 L (3.5-5.0) g/dL 03/29/23 03/29/23 03/30/23 Range/Units 16:21 20:12 05:39 Hgb (11.4-16.0) gm/dL Hct (34.0-46.0) % MCHC (31.0-37.0) g/dL ESR (0-20) mm/hr Glucose (74-99) mg/dL POC Glucose (mg/dL) 173 H 135 H 144 H (70-110) mg/dL C-Reactive Protein (<1.0) mg/dL Total Protein (6.3-8.2) g/dL Albumin (3.5-5.0) g/dL 03/30/23 03/30/23 Range/Units 07:07 07:07 Hgb 9.7 L (11.4-16.0) gm/dL Hct 32.6 L (34.0-46.0) % MCHC 29.7 L (31.0-37.0) g/dL ESR (0-20) mm/hr Glucose 103 H (74-99) mg/dL POC Glucose (mg/dL) (70-110) mg/dL C-Reactive Protein (<1.0) mg/dL Total Protein 5.9 L (6.3-8.2) g/dL Albumin 3.0 L (3.5-5.0) g/dL Microbiology - Last 24 Hours (Table) 03/28/23 10:48 Gram Stain - Preliminary Chest Wound Culture - Preliminary Presumptive Staph aureus 03/28/23 10:48 Anaerobic Culture - Preliminary Chest 03/27/23 18:06 Gram Stain - Preliminary Chest Wound Culture - Preliminary Presumptive Staph aureus
[2023-03-30 16:23] LABS: Glucose,Whole Blood 152 mg/dL (70-110)
[2023-03-30 20:08] LABS: Glucose,Whole Blood 165 mg/dL (70-110)
[2023-03-30] MEDS: LATANOPROST 0.005% OPHTH DROPS 2.5 ML BTL BOTH EYES SCH (20:19)
[2023-03-31] MEDS: ACETAMINOPHEN TAB 325 MG TAB PO PRN ×2 (00:55→11:53)
[2023-03-31 06:01] LABS: Glucose,Whole Blood 116 mg/dL (70-110)
[2023-03-31] MEDS: INSULIN ASPART (NovoLOG) 100 UNIT/ML VIAL SQ SCH ×4 (06:08→20:11)
[2023-03-31] MEDS: PANTOPRAZOLE 40 MG TABLET PO SCH (06:20)
[2023-03-31] MEDS ORDERED: VANCOMYCIN TROUGH DUE 1 EACH MISC MISCELLANE ONE (07:00)
[2023-03-31] MEDS: ALBUTEROL INHALATION PRN ×4 (07:40→21:58)
--- NOTE | 2023-03-31 07:51 | P.PN ---
Subjective Progress Note Date: 03/31/23 Principal diagnosis: Sternal incision dehiscence with superficial infection, leukocytosis, lactic acidosis. History of coronary artery disease with left main disease and moderate to severe mitral regurgitation status post 2 vessel CABG and mitral valve repair 03/02/23, left lower extremity DVT on eliquis outpatient, cardiomyopathy/chronic systolic heart failure with decreased systolic functionand EF 35%, hypertriglyceridemia, asthma with multiple exacerbations and chronic steroids, severe restrictive lung disease, diabetes mellitus, previous tobacco dependence, GERD, osteoarthritis, COVID-19 infection in September 2022 The patient was seen and examined this morning sitting up in a recliner on the cardiac stepdown unit in no acute distress eating breakfast. Remains in sinus rhythm, hemodynamically stable, on room air, remains afebrile. States mild postoperative pain is controlled with Tylenol. Patient has been ambulatory in her room and out in the hallway yesterday. Being seen by PT/OT. First set of wound cultures sent by wound care 03/27/23 finalized as MSSA, in addition blood cultures from 03/28/23 preliminarily growing staph. Vancomycin discontinued by ID, started on ancef IV. Recommendation from Dr. Astorga is for wet-to-dry dressing change daily, no absorptive silver, no surgical debridement planned. Did discuss ASHLEY at discharge if IV antibiotics ordered which Dr. Astorga would be agreeable to, son prefers to take his mom home and is willing to infuse IV antibiotics if that is the recommendation. Recommend discharge to home with home care when able with follow up in wound care center. Objective - Vital Signs Vital signs: Vital Signs Temp 97.9 F 03/31/23 04:22 Pulse 95 03/31/23 04:22 Resp 16 03/31/23 04:22 BP 110/55 03/31/23 04:22 Pulse Ox 97 03/31/23 04:22 FiO2 21 03/30/23 07:42 Intake & Output 03/30/23 03/31/23 03/31/23 18:59 06:59 18:59 Intake Total 358 Balance 358 Weight 74.6 kg Intake: Oral 358 Other: Voiding Method Toilet Toilet # Voids 2 2 - Exam CONSTITUTIONAL: Appears comfortable, cooperative, no acute distress RESPIRATORY: Lungs sounds diminished bilaterally. Respirations even, nonlabored. Currently on room air with oxygen saturation 97%. Able to achieve 6289-2534 mL on incentive spirometry. Strong nonproductive cough. CARDIOVASCULAR: S1, S2 present. Regular rate and rhythm, sinus rhythm on telemetry. Sternum stable. Palpable peripheral pulses bilaterally. No edema present. No calf pain or tenderness noted. Heart hugger in place with patient demonstrating appropriate use. Antiembolism stockings, SCDs present. GASTROINTESTINAL: Abdomen soft, nontender, nondistended. Active bowel sounds present 4 quadrants. Tolerating diet. GENITOURINARY: Continues to void although sometimes incontinent INTEGUMENTARY: Skin is warm and dry. Anterior chest incision dehisced, granulation tissue present. Left lower extremity EVH site well approximated without redness or drainage. NEUROLOGIC: Cranial nerves II through XII intact MUSKULOSKELETAL: Able to move all extremities, strength equal bilaterally PSYCHIATRIC: Alert and oriented to person place and time, appropriate affect, intact judgment and insight - Allied health notes Allied health notes reviewed: nursing - Labs CBC & Chem 7: 03/30/23 07:07 03/30/23 07:07 Labs: Abnormal Lab Results - Last 24 Hours (Table) 03/30/23 03/30/23 03/30/23 Range/Units 07:07 07:07 11:48 Hgb 9.7 L (11.4-16.0) gm/dL Hct 32.6 L (34.0-46.0) % MCHC 29.7 L (31.0-37.0) g/dL Glucose 103 H (74-99) mg/dL POC Glucose (mg/dL) 144 H (70-110) mg/dL Total Protein 5.9 L (6.3-8.2) g/dL Albumin 3.0 L (3.5-5.0) g/dL 03/30/23 03/30/23 03/31/23 Range/Units 16:21 20:07 05:59 Hgb (11.4-16.0) gm/dL Hct (34.0-46.0) % MCHC (31.0-37.0) g/dL Glucose (74-99) mg/dL POC Glucose (mg/dL) 152 H 165 H 116 H (70-110) mg/dL Total Protein (6.3-8.2) g/dL Albumin (3.5-5.0) g/dL Microbiology - Last 24 Hours (Table) 03/28/23 21:03 Blood Culture Gram Stain - Preliminary Blood Blood Culture - Preliminary Staphylococcus aureus 03/27/23 18:06 Anaerobic Culture - Preliminary Chest 03/27/23 18:06 Gram Stain - Final Chest Wound Culture - Final Staphylococcus aureus 03/28/23 10:48 Gram Stain - Preliminary Chest Wound Culture - Preliminary Presumptive Staph aureus - Imaging and Cardiology Chest x-ray: image reviewed Assessment and Plan Assessment: Sternal incision dehiscence with SUPERFICIAL infection, 03/27/23 culture positive for MSSA, 03/27/23 blood cultures preliminary resulting staph Leukocytosis, resolving Lactic acidosis, resolved History of coronary artery disease with left main disease status post 2 vessel CABG 03/02/23 History of moderate to severe mitral regurgitation status post mitral valve repair 03/02/2023 Postoperative hypotension and acute delirium, resolved Left lower extremity DVT on eliquis outpatient, last dose 03/25/23 am Cardiomyopathy/chronic systolic heart failure with decreased systolic funct ionand EF 35% Hypertriglyceridemia, TG 201 Asthma with multiple exacerbations and chronic steroids Severe restrictive lung disease, FEV1 42% of predicted Diabetes mellitus, A1c 6.9% Previous tobacco dependence GERD Osteoarthritis COVID-19 infection in September 2022 Plan: Dr. Astorga evaluated patient, no surgical intervention warranted Wet to dry dressing change daily and prn, shower daily Recommend change to oral antibiotics when able Continue home medications including eliquis Sternal precautions remain in place Incentive spirometry encouraged Increase activity as tolerated, PT/OT following Monitor blood sugars closely, hyperglycemia contributes to infection especially since patient is on chronic steroids Will monitor daily labs and CXR Recommend discharge to home with home care with follow up in wound care center More recommendations to follow
[2023-03-31 07:54] LABS: ALT 17 U/L (4-34); AST 20 U/L (14-36); African American GFR (CKD) >90 (>60 ml/min/1.73 sqM); Albumin 3.2 g/dL (3.5-5.0); Alkaline Phosphatase 71 U/L (38-126); Anion Gap 11 mmol/L; Blood Urea Nitrogen 14 mg/dL (7-17); Calcium 9.4 mg/dL (8.4-10.2); Carbon Dioxide 23 mmol/L (22-30); Chloride 102 mmol/L (98-107); Glucose 102 mg/dL (74-99); Non-African American GFR(CKD) 84 (>60 ml/min/1.73 sqM); Potassium 4.5 mmol/L (3.5-5.1); Sodium 136 mmol/L (137-145); Total Bilirubin 0.2 mg/dL (0.2-1.3); Total Protein 6.1 g/dL (6.3-8.2)
[2023-03-31 09:02] LABS: HCT 31.7 % (34.0-46.0); HGB 9.5 gm/dL (11.4-16.0); Hypochromasia Marked; MCH 25.9 pg (25.0-35.0); MCV 86.4 fL (80.0-100.0); Mean Platelet Volume 8.7; Platelet Count 367 k/uL (150-450); RBC 3.67 m/uL (3.80-5.40); RDW 15.3 % (11.5-15.5); WBC 13.1 k/uL (3.8-10.6)
[2023-03-31] MEDS: ATORVASTATIN 10 MG TAB PO SCH (09:26)
[2023-03-31] MEDS: MULTIVITAMINS, THERA 1 EACH TAB PO SCH (09:26)
[2023-03-31] MEDS: metFORMIN 500 MG TAB PO SCH ×2 (09:26→20:29)
[2023-03-31] MEDS: LOSARTAN 50 MG TAB PO SCH ×2 (09:26→09:29)
[2023-03-31] MEDS: METOPROLOL TARTRATE 50 MG TAB PO SCH ×2 (09:26→20:29)
[2023-03-31] MEDS: ASPIRIN 81 MG PO SCH (09:26)
[2023-03-31] MEDS: SPIRONOLACTONE 25 MG TAB PO SCH (09:26)
[2023-03-31] MEDS: ASCORBIC ACID 500 MG TAB PO SCH (09:26)
[2023-03-31] MEDS: APIXABAN 5 MG TAB PO SCH ×2 (09:26→20:29)
[2023-03-31] MEDS: predniSONE 10 MG TAB PO SCH (09:26)
[2023-03-31] MEDS: TROSPIUM CHLORIDE 20 MG TABLET PO SCH ×2 (09:27→21:12)
[2023-03-31] MEDS: FUROSEMIDE 40 MG TAB PO SCH (09:27)
--- NOTE | 2023-03-31 10:14 | XR ---
EXAMINATION TYPE: XR chest 2V DATE OF EXAM: 03/31/2023 COMPARISON: 03/30/2023 INDICATION: Postcardiac surgery TECHNIQUE: Single frontal view of the chest is obtained. FINDINGS: The heart size is upper limits for normal. The pulmonary vasculature is normal. No suspicious focal consolidation is evident. Sternotomy wires are present prior cardiac valve and CA BG. IMPRESSION: 1. No acute pulmonary process.
[2023-03-31 11:04] VITALS: BMI 32.1
[2023-03-31 11:35] LABS: Glucose,Whole Blood 126 mg/dL (70-110)
--- NOTE | 2023-03-31 12:07 | P.PN ---
Subjective Progress Note Date: 03/31/23 Principal diagnosis: Sternal wound infection Patient is a 78-year-old -[place] female with a past medical history significant for coronary artery disease in this patient with status post two- vessel coronary bypass grafting and mitral valve repair on 03/02/2023 , presented to hospital with fever lower sternal wound dehiscence with purulent drainage and abnormal CT. On today's evaluation that is 03/31/2023, the patient continues to be afebrile the patient is breathing comfortably on room air , the patient still complaining of pain to the lower sternal wound/incision some decreased the pain medication and did have a minimal drainage , patient did have some nausea but no vomiting no abdominal pain or diarrhea Objective - Vital Signs Vital signs: Vital Signs Temp 98.2 F 03/31/23 08:00 Pulse 97 03/31/23 08:00 Resp 18 03/31/23 08:00 BP 123/69 03/31/23 08:00 Pulse Ox 100 03/31/23 08:00 FiO2 21 03/30/23 07:42 Intake & Output 03/30/23 03/31/23 03/31/23 18:59 06:59 18:59 Intake Total 358 Balance 358 Weight 74.6 kg Intake: Oral 358 Other: Voiding Method Toilet Toilet Toilet # Voids 2 2 - Exam GENERAL DESCRIPTION: An elderly female lying in bed in no distress RESPIRATORY SYSTEM: Unlabored breathing , decreased breath sounds at bases HEART: S1 S2 regular rate and rhythm , lower sternal wound base with no slough tissue no further drainage was noticed today ABDOMEN: Soft , no tenderness EXTREMITIES: No edema feet - Labs CBC & Chem 7: 03/31/23 07:20 03/31/23 07:20 Labs: Abnormal Lab Results - Last 24 Hours (Table) 03/30/23 03/30/23 03/30/23 Range/Units 11:48 16:21 20:07 WBC (3.8-10.6) k/uL RBC (3.80-5.40) m/uL Hgb (11.4-16.0) gm/dL Hct (34.0-46.0) % MCHC (31.0-37.0) g/dL Sodium (137-145) mmol/L Glucose (74-99) mg/dL POC Glucose (mg/dL) 144 H 152 H 165 H (70-110) mg/dL Total Protein (6.3-8.2) g/dL Albumin (3.5-5.0) g/dL 03/31/23 03/31/23 03/31/23 Range/Units 05:59 07:20 07:20 WBC 13.1 H (3.8-10.6) k/uL RBC 3.67 L (3.80-5.40) m/uL Hgb 9.5 L (11.4-16.0) gm/dL Hct 31.7 L (34.0-46.0) % MCHC 30.0 L (31.0-37.0) g/dL Sodium 136 L (137-145) mmol/L Glucose 102 H (74-99) mg/dL POC Glucose (mg/dL) 116 H (70-110) mg/dL Total Protein 6.1 L (6.3-8.2) g/dL Albumin 3.2 L (3.5-5.0) g/dL Microbiology - Last 24 Hours (Table) 03/28/23 10:48 Gram Stain - Final Chest Wound Culture - Final Staphylococcus aureus 03/28/23 21:03 Blood Culture Gram Stain - Preliminary Blood Blood Culture - Preliminary Staphylococcus aureus 03/27/23 18:06 Anaerobic Culture - Preliminary Chest 03/27/23 18:06 Gram Stain - Final Chest Wound Culture - Final Staphylococcus aureus Assessment and Plan (1) Sepsis Current Visit: Yes Status: Acute Code(s): A41.9 - SEPSIS, UNSPECIFIED ORGANISM SNOMED Code(s): 13662641 (2) Surgical wound dehiscence Current Visit: No Status: Acute Code(s): T81.31XA - DISRUPTION OF EXTERNAL OPERATION (SURGICAL) WOUND, NEC, INIT SNOMED Code(s): 64108789 Plan: Patient presented to hospital with sepsis in this patient with a fever tachycardia elevated white count source being sternal wound infection with dehiscence of the lower end of the incision patient did have abnormal CT with multiple foci of air and now with evidence for significant purulent drainage on examination patient has been reevaluated by CT surgery did not recommend any surgical debridement 2Local cultures have been finalized with MSSA, patient did have elevated inflammatory markers, blood cultures obtained, with positive with Staphylococcus aureus likely MSSA 3blood cultures will be repeated to document clearance of bacteremia, she will need a PICC line for outpatient IV antibiotics once the patient cleared her bacteremia continue with the cefazolin and monitor clinical course closely, this was discussed with the medical team Time with Patient: Less than 30
--- NOTE | 2023-03-31 14:01 | P.PN ---
Subjective Progress Note Date: 03/31/23 This is a 78-year-old female who presented to the emergency department with chest wall pain at her surgical site as she recently had mitral valve replacement with CABG approximately one month ago. Patient reports to having some opening of the incisional site and was seen at the cardiothoracic surgery office. Patient reports she did have chills the night before but did not check her temperature. Patient reports she was febrile in the emergency department. Patient follows with Dr. Pearson in the outpatient setting with a past medical history of asthma, coronary artery disease, diabetes mellitus, GERD, hyperlipidemia, Osteoarthritis, cardiomyopathy. Patient denies drug use or tobacco use and denies any alcohol use. Dr. Jackson of cardiothoracic surgery evaluated the patient requesting to be admitted to medicine service with them on consult. Wound care was also consulted. Patient was started on vancomycin and also being started on heparin IV. EKG showed sinus tachycardia, chest x-ray showed cardiomegaly without suspicious new acute pulmonary process. Chest CT was done showing sternotomy changes with fat stranding along the superficial and deep aspects of the sternum some of this may be secondary to healing changes and multiple foci of gas present in the superficial surgical bed just anterior to the sternum with superimposed infection and surgery was noted to be on 03/02/2023. No drainable fluid collection visualized at the superficial and deep portions however also reports CT is not great differential eating softer tissues and there is a trace right pleural effusion. Home medications have been reviewed and resumed and would recommend diabetes management with tight glycemic control and Accu-Cheks before meals and at bedtime 03/28. Patient seen and examined. Nursing staff noticed a lot of purulent discharge from the sternotomy incision site . Patient denies any fever. Complaining of pain at the site of surgery Lab work this morning showed white count 14.4, hemoglobin 9.1, sodium 136, potassium 4.1, chloride 100, BUN 17, creatinine 0.82 03/29. Patient seen and examined. WBC this morning is 12.7, hemoglobin 10.5, sodium 137, potassium 4.6, BUN 11 creatinine 0.7. States chest pain is improved compared to yesterday, not much discharge this morning 03/30. Patient seen and examined. No acute issues overnight. Vital signs stable. Patient still noticing purulent discharge from her sternotomy site 03/31. Patient seen and examined. Sitting upright in the chair.labs this morning showed white count 13.1, hemoglobin 9.5, platelet count 367, sodium 136, BUN 14, creatinine 0.7 REVIEW OF SYSTEMS: CONSTITUTIONAL: No fever, no malaise,. CARDIOVASCULAR: No chest pain, no palpitations, no syncope. PULMONARY: No shortness of breath, no cough, GASTROINTESTINAL: No diarrhea, no nausea, no vomiting, no abdominal pain. NEUROLOGICAL: No headaches, no weakness, PHYSICAL EXAMINATION: GENERAL: The patient is alert and oriented x3, not in any acute distress. Well developed, well nourished. HEENT: Pupils are round and equally reacting to light. EOMI. No scleral icterus. No conjunctival pallor. Normocephalic, atraumatic. No pharyngeal erythema. No thyromegaly. CARDIOVASCULAR: S1 and S2 present. No murmurs, rubs, or gallops. Sternotomy surgical incision seen PULMONARY: Chest is clear to auscultation, no wheezing or crackles. Sternotomy incision seen ABDOMEN: Soft, nontender, nondistended, normoactive bowel sounds. No palpable or ganomegaly. MUSCULOSKELETAL: No joint swelling or deformity. EXTREMITIES: No cyanosis, clubbing, or pedal edema. NEUROLOGICAL: Gross neurological examination did not reveal any focal deficits. SKIN: No rashes. Assessment and plan Sepsis MSSA bacteremia Recent CABG on 03/02/2023 with sternal incision site dehiscence with infection Leukocytosis, secondary to above Lactic acidosis, present on admission secondary to above, improved History of moderate to severe mitral regurgitation with mitral valve repair during CABG on 03/02/2023 Recent readmission with left lower extremity pain, positive for DVT started on eliquis Cardiomyopathy History of congestive heart failure, systolic dysfunction with most recent EF being 35% Diabetes mellitus GERD History of asthma, not in exacerbation Former smoker Hyperlipidemia Plan; Monitor vital signs Monitor CBC Monitor CMP Continue telemetry monitoring blood cultures positive for MSSA Continue wound care antibiotics changed to IV cefazolin Continue Eliquis Follow-up in ID recs CT surgery following Objective - Vital Signs Vital signs: Vital Signs Temp 98.1 F 03/31/23 12:00 Pulse 93 03/31/23 12:00 Resp 18 03/31/23 12:00 BP 104/67 03/31/23 12:00 Pulse Ox 99 03/31/23 12:00 FiO2 21 03/30/23 07:42 Intake & Output 03/30/23 03/31/23 03/31/23 18:59 06:59 18:59 Intake Total 358 Output Total 350 Balance 358 -350 Weight 74.6 kg 74.6 kg Intake: Oral 358 Output: Urine 350 Other: Voiding Method Toilet Toilet Toilet # Voids 2 2 1 - Labs CBC & Chem 7: 03/31/23 07:20 03/31/23 07:20 Labs: Abnormal Lab Results - Last 24 Hours (Table) 03/30/23 03/30/23 03/31/23 Range/Units 16:21 20:07 05:59 WBC (3.8-10.6) k/uL RBC (3.80-5.40) m/uL Hgb (11.4-16.0) gm/dL Hct (34.0-46.0) % MCHC (31.0-37.0) g/dL Sodium (137-145) mmol/L Glucose (74-99) mg/dL POC Glucose (mg/dL) 152 H 165 H 116 H (70-110) mg/dL Total Protein (6.3-8.2) g/dL Albumin (3.5-5.0) g/dL 03/31/23 03/31/23 03/31/23 Range/Units 07:20 07:20 11:33 WBC 13.1 H (3.8-10.6) k/uL RBC 3.67 L (3.80-5.40) m/uL Hgb 9.5 L (11.4-16.0) gm/dL Hct 31.7 L (34.0-46.0) % MCHC 30.0 L (31.0-37.0) g/dL Sodium 136 L (137-145) mmol/L Glucose 102 H (74-99) mg/dL POC Glucose (mg/dL) 126 H (70-110) mg/dL Total Protein 6.1 L (6.3-8.2) g/dL Albumin 3.2 L (3.5-5.0) g/dL Microbiology - Last 24 Hours (Table) 03/28/23 10:48 Anaerobic Culture - Preliminary Chest 03/28/23 21:03 Blood Culture Gram Stain - Preliminary Blood Blood Culture - Preliminary Staphylococcus aureus 03/28/23 10:48 Gram Stain - Final Chest Wound Culture - Final Staphylococcus aureus 03/27/23 18:06 Anaerobic Culture - Preliminary Chest 03/27/23 18:06 Gram Stain - Final Chest Wound Culture - Final Staphylococcus aureus
[2023-03-31 16:27] LABS: Glucose,Whole Blood 175 mg/dL (70-110)
[2023-03-31 20:06] LABS: Glucose,Whole Blood 110 mg/dL (70-110)
[2023-03-31] MEDS: LATANOPROST 0.005% OPHTH DROPS 2.5 ML BTL BOTH EYES SCH (20:30)
[2023-04-01] MEDS: ACETAMINOPHEN TAB 325 MG TAB PO PRN ×2 (00:36→21:42)
[2023-04-01] MEDS: PANTOPRAZOLE 40 MG TABLET PO SCH (04:14)
[2023-04-01] MEDS: INSULIN ASPART (NovoLOG) 100 UNIT/ML VIAL SQ SCH ×4 (06:06→19:52)
[2023-04-01 06:08] LABS: Glucose,Whole Blood 112 mg/dL (70-110)
--- NOTE | 2023-04-01 07:08 | XR ---
EXAMINATION TYPE: XR chest 2V DATE OF EXAM: 04/01/2023 6:30 AM COMPARISON: Chest radiographs from 03/31/2023 TECHNIQUE: XR chest 2V Frontal and lateral views of the chest. CLINICAL INDICATION:Female, 78 years old with history of post cardiac surgery; FINDINGS: Lungs/Pleura: No focal consolidation or pneumothorax. Trace right pleural effusion. Pulmonary vascularity: Unremarkable. Heart/mediastinum: Cardiomediastinal silhouette is obscured due to overlying and adjacent opacities. Left atrial clip. Valvular prosthesis Musculoskeletal: No acute osseous pathology. Midline sternotomy wires are noted and stable. Orthopedi c anchor within the right humeral head. . IMPRESSION: Post-CABG changes with trace right pleural effusion.
[2023-04-01] MEDS: ALBUTEROL INHALATION PRN ×4 (08:04→21:31)
[2023-04-01] MEDS: metFORMIN 500 MG TAB PO SCH ×2 (08:39→20:09)
[2023-04-01] MEDS: MULTIVITAMINS, THERA 1 EACH TAB PO SCH (08:39)
[2023-04-01] MEDS: predniSONE 10 MG TAB PO SCH (08:39)
[2023-04-01] MEDS: FUROSEMIDE 40 MG TAB PO SCH (08:39)
[2023-04-01] MEDS: ASCORBIC ACID 500 MG TAB PO SCH (08:39)
[2023-04-01] MEDS: TROSPIUM CHLORIDE 20 MG TABLET PO SCH ×2 (08:39→20:10)
[2023-04-01] MEDS: METOPROLOL TARTRATE 50 MG TAB PO SCH ×2 (08:39→20:09)
[2023-04-01] MEDS: ATORVASTATIN 10 MG TAB PO SCH (08:39)
[2023-04-01] MEDS: APIXABAN 5 MG TAB PO SCH ×2 (08:39→20:09)
[2023-04-01] MEDS: ASPIRIN 81 MG PO SCH (08:39)
[2023-04-01] MEDS: SPIRONOLACTONE 25 MG TAB PO SCH (08:39)
[2023-04-01] MEDS: LOSARTAN 50 MG TAB PO SCH (08:41)
[2023-04-01 08:46] LABS: HGB 9.9 gm/dL (11.4-16.0); Hypochromasia Marked; MCH 25.3 pg (25.0-35.0); MCV 87.2 fL (80.0-100.0); Platelet Count 486 k/uL (150-450); RDW 15.5 % (11.5-15.5); WBC 15.1 k/uL (3.8-10.6)
[2023-04-01 09:06] LABS: Calcium 9.9 mg/dL (8.4-10.2); Magnesium 1.8 mg/dL (1.6-2.3); Potassium 4.5 mmol/L (3.5-5.1)
--- NOTE | 2023-04-01 09:27 | P.PN ---
Subjective Progress Note Date: 04/01/23 Principal diagnosis: Sternal incision dehiscence with superficial infection, leukocytosis, lactic acidosis. History of coronary artery disease with left main disease and moderate to severe mitral regurgitation status post 2 vessel CABG and mitral valve repair 03/02/23, left lower extremity DVT on eliquis outpatient, cardiomyopathy/chronic systolic heart failure with decreased systolic functionand EF 35%, hypertriglyceridemia, asthma with multiple exacerbations and chronic steroids, severe restrictive lung disease, diabetes mellitus, previous tobacco dependence, GERD, osteoarthritis, COVID-19 infection in September 2022 The patient was seen and examined this morning sitting up in a recliner on the cardiac stepdown unit in no acute distress eating breakfast. Remains in sinus rhythm, hemodynamically stable, on room air, remains afebrile. States mild postoperative pain is controlled with Tylenol. Patient has been ambulatory in her room and out in the hallway. Being seen by PT/OT. Wound cultures 03/27/23 and 03/28/23 finalized as MSSA, in addition blood cultures from 03/28/23 preliminarily growing staph. Continues on ancef IV per infectious disease. No surgical debridement planned. Recommend discharge to home with home care when able with follow up in wound care center. Objective - Vital Signs Vital signs: Vital Signs Temp 97.7 F 04/01/23 08:36 Pulse 100 04/01/23 08:36 Resp 20 04/01/23 08:36 BP 101/55 04/01/23 08:36 Pulse Ox 100 04/01/23 08:36 FiO2 21 03/30/23 07:42 Intake & Output 03/31/23 04/01/23 04/01/23 18:59 06:59 18:59 Intake Total 480 Output Total 750 Balance -270 Weight 74.6 kg 73.4 kg Intake: Oral 480 Output: Urine 750 Other: Voiding Method Toilet Toilet # Voids 1 1 - Exam CONSTITUTIONAL: Appears comfortable, cooperative, no acute distress RESPIRATORY: Lungs sounds diminished bilaterally. Respirations even, nonlabored. Currently on room air with oxygen saturation 98%. Able to achieve 9208-0081 mL on incentive spirometry. Strong nonproductive cough. CARDIOVASCULAR: S1, S2 present. Regular rate and rhythm, sinus rhythm on telem etry. Sternum stable. Palpable peripheral pulses bilaterally. No edema present. No calf pain or tenderness noted. Heart hugger in place with patient demonstrating appropriate use. Antiembolism stockings, SCDs present. GASTROINTESTINAL: Abdomen soft, nontender, nondistended. Active bowel sounds present 4 quadrants. Tolerating diet. GENITOURINARY: Continues to void although sometimes incontinent INTEGUMENTARY: Skin is warm and dry. Anterior chest incision dehisced, granulation tissue present, some purulent drainage remains although less every day. Left lower extremity EVH site well approximated without redness or drainage. NEUROLOGIC: Cranial nerves II through XII intact MUSKULOSKELETAL: Able to move all extremities, strength equal bilaterally PSYCHIATRIC: Alert and oriented to person place and time, appropriate affect, intact judgment and insight - Allied health notes Allied health notes reviewed: nursing - Labs CBC & Chem 7: 04/01/23 08:20 04/01/23 08:20 Labs: Abnormal Lab Results - Last 24 Hours (Table) 03/31/23 03/31/23 04/01/23 Range/Units 11:33 16:24 06:06 WBC (3.8-10.6) k/uL Hgb (11.4-16.0) gm/dL MCHC (31.0-37.0) g/dL Plt Count (150-450) k/uL BUN (7-17) mg/dL POC Glucose (mg/dL) 126 H 175 H 112 H (70-110) mg/dL 04/01/23 04/01/23 Range/Units 08:20 08:20 WBC 15.1 H (3.8-10.6) k/uL Hgb 9.9 L (11.4-16.0) gm/dL MCHC 29.0 L (31.0-37.0) g/dL Plt Count 486 H (150-450) k/uL BUN 20 H (7-17) mg/dL POC Glucose (mg/dL) (70-110) mg/dL Microbiology - Last 24 Hours (Table) 03/28/23 10:48 Anaerobic Culture - Preliminary Chest 03/28/23 21:03 Blood Culture Gram Stain - Preliminary Blood Blood Culture - Preliminary Staphylococcus aureus 03/28/23 10:48 Gram Stain - Final Chest Wound Culture - Final Staphylococcus aureus - Imaging and Cardiology Chest x-ray: report reviewed, image reviewed Assessment and Plan Assessment: Sternal incision dehiscence with SUPERFICIAL infection, 03/27/23 and 03/28/23 culture positive for MSSA, 03/27/23 blood cultures preliminary resulting staph Leukocytosis Lactic acidosis, resolved History of coronary artery disease with left main disease status post 2 vessel CABG 03/02/23 History of moderate to severe mitral regurgitation status post mitral valve repair 03/02/2023 Postoperative hypotension and acute delirium, resolved Left lower extremity DVT on eliquis outpatient, last dose 03/25/23 am Cardiomyopathy/chronic systolic heart failure with decreased systolic functionand EF 35% Hypertriglyceridemia, TG 201 Asthma with multiple exacerbations and chronic steroids Severe restrictive lung disease, FEV1 42% of predicted Diabetes mellitus, A1c 6.9% Previous tobacco dependence GERD Osteoarthritis COVID-19 infection in September 2022 Plan: Dr. Astorga evaluated patient, no surgical intervention warranted Wet to dry dressing change daily and prn, shower daily Recommend change to oral antibiotics when able Continue home medications including eliquis Sternal precautions remain in place Incentive spirometry encouraged Increase activity as tolerated, PT/OT following Monitor blood sugars closely, hyperglycemia contributes to infection especially since patient is on chronic steroids Will monitor daily labs and CXR Recommend discharge to home with home care with follow up in wound care center when able More recommendations to follow
[2023-04-01] MEDS: MAGNESIUM SULFATE-D5W PMX 1 GM in DEXTROSE/WATER 1 100ML.BAG IVPB SCH ×2 (09:41→10:51)
[2023-04-01 11:44] LABS: Glucose,Whole Blood 169 mg/dL (70-110)
--- NOTE | 2023-04-01 12:18 | P.PN ---
Subjective Progress Note Date: 04/01/23 This is a 78-year-old female who presented to the emergency department with chest wall pain at her surgical site as she recently had mitral valve replacement with CABG approximately one month ago. Patient reports to having some opening of the incisional site and was seen at the cardiothoracic surgery office. Patient reports she did have chills the night before but did not check her temperature. Patient reports she was febrile in the emergency department. Patient follows with Dr. Pearson in the outpatient setting with a past medical history of asthma, coronary artery disease, diabetes mellitus, GERD, hyperlipidemia, Osteoarthritis, cardiomyopathy. Patient denies drug use or tobacco use and denies any alcohol use. Dr. Jackson of cardiothoracic surgery evaluated the patient requesting to be admitted to medicine service with them on consult. Wound care was also consulted. Patient was started on vancomycin and also being started on heparin IV. EKG showed sinus tachycardia, chest x-ray showed cardiomegaly without suspicious new acute pulmonary process. Chest CT was done showing sternotomy changes with fat stranding along the superficial and deep aspects of the sternum some of this may be secondary to healing changes and multiple foci of gas present in the superficial surgical bed just anterior to the sternum with superimposed infection and surgery was noted to be on 03/02/2023. No drainable fluid collection visualized at the superficial and deep portions however also reports CT is not great differential eating softer tissues and there is a trace right pleural effusion. Home medications have been reviewed and resumed and would recommend diabetes management with tight glycemic control and Accu-Cheks before meals and at bedtime 03/28. Patient seen and examined. Nursing staff noticed a lot of purulent discharge from the sternotomy incision site . Patient denies any fever. Complaining of pain at the site of surgery Lab work this morning showed white count 14.4, hemoglobin 9.1, sodium 136, potassium 4.1, chloride 100, BUN 17, creatinine 0.82 03/29. Patient seen and examined. WBC this morning is 12.7, hemoglobin 10.5, sodium 137, potassium 4.6, BUN 11 creatinine 0.7. States chest pain is improved compared to yesterday, not much discharge this morning 03/30. Patient seen and examined. No acute issues overnight. Vital signs stable. Patient still noticing purulent discharge from her sternotomy site 03/31. Patient seen and examined. Sitting upright in the chair.labs this morning showed white count 13.1, hemoglobin 9.5, platelet count 367, sodium 136, BUN 14, creatinine 0.7 10. Patient seen and examined. Initial lab work this morning white count is 15.1, hemoglobin 9.9, sodium 137, potassium 4.5, BUN 20, creatinine 0.81. Vital signs are temperature 97.7, heart rate 100, respiratory rate 20, blood pressure 101/55. Complaint of generalized lethargy and weakness. Complains of poor appetite REVIEW OF SYSTEMS: CONSTITUTIONAL: No fever, no malaise,. CARDIOVASCULAR: No chest pain, no palpitations, no syncope. PULMONARY: No shortness of breath, no cough, GASTROINTESTINAL: No diarrhea, , no abdominal pain. NEUROLOGICAL: No headaches, no weakness, PHYSICAL EXAMINATION: GENERAL: The patient is alert and oriented x3, not in any acute distress. Well developed, well nourished. HEENT: Pupils are round and equally reacting to light. EOMI. No scleral icterus. No conjunctival pallor. Normocephalic, atraumatic. No pharyngeal erythema. No thyromegaly. CARDIOVASCULAR: S1 and S2 present. No murmurs, rubs, or gallops. Sternotomy surgical incision seen PULMONARY: Chest is clear to auscultation, no wheezing or crackles. Sternotomy incision seen ABDOMEN: Soft, nontender, nondistended, normoactive bowel sounds. No palpable organomegaly. MUSCULOSKELETAL: No joint swelling or deformity. EXTREMITIES: No cyanosis, clubbing, or pedal edema. NEUROLOGICAL: Gross neurological examination did not reveal any focal deficits. SKIN: No rashes. Assessment and plan Sepsis MSSA bacteremia Recent CABG on 03/02/2023 with sternal incision site dehiscence with infection Leukocytosis, secondary to above Lactic acidosis, present on admission secondary to above, improved History of moderate to severe mitral regurgitation with mitral valve repair during CABG on 03/02/2023 Recent readmission with left lower extremity pain, positive for DVT started on eliquis Cardiomyopathy History of congestive heart failure, systolic dysfunction with most recent EF being 35% Diabetes mellitus GERD History of asthma, not in exacerbation Former smoker Hyperlipidemia Plan; Monitor vital signs Monitor CBC Monitor CMP blood cultures positive for MSSA Continue wound care Continue IV cefazolin Continue Eliquis Follow-up in ID recs CT surgery following, no plan for any surgical debridement, recommend dischargi ng with IV antibiotics and home care Objective - Vital Signs Vital signs: Vital Signs Temp 97.7 F 04/01/23 08:36 Pulse 100 04/01/23 08:36 Resp 20 04/01/23 08:36 BP 101/55 04/01/23 08:36 Pulse Ox 100 04/01/23 08:36 FiO2 21 03/30/23 07:42 Intake & Output 03/31/23 04/01/23 04/01/23 18:59 06:59 18:59 Intake Total 480 Output Total 750 Balance -270 Weight 74.6 kg 73.4 kg Intake: Oral 480 Output: Urine 750 Other: Voiding Method Toilet Toilet # Voids 1 1 - Labs CBC & Chem 7: 04/01/23 08:20 04/01/23 08:20 Labs: Abnormal Lab Results - Last 24 Hours (Table) 03/31/23 03/31/23 04/01/23 Range/Units 11:33 16:24 06:06 WBC (3.8-10.6) k/uL Hgb (11.4-16.0) gm/dL MCHC (31.0-37.0) g/dL Plt Count (150-450) k/uL BUN (7-17) mg/dL POC Glucose (mg/dL) 126 H 175 H 112 H (70-110) mg/dL 04/01/23 04/01/23 Range/Units 08:20 08:20 WBC 15.1 H (3.8-10.6) k/uL Hgb 9.9 L (11.4-16.0) gm/dL MCHC 29.0 L (31.0-37.0) g/dL Plt Count 486 H (150-450) k/uL BUN 20 H (7-17) mg/dL POC Glucose (mg/dL) (70-110) mg/dL Microbiology - Last 24 Hours (Table) 03/28/23 10:48 Anaerobic Culture - Preliminary Chest 03/28/23 21:03 Blood Culture Gram Stain - Preliminary Blood Blood Culture - Preliminary Staphylococcus aureus 03/28/23 10:48 Gram Stain - Final Chest Wound Culture - Final Staphylococcus aureus
--- NOTE | 2023-04-01 14:48 | P.PN ---
Subjective Progress Note Date: 04/01/23 Principal diagnosis: Sternal wound infection Patient is a 78-year-old -[place] female with a past medical history significant for coronary artery disease in this patient with status post two- vessel coronary bypass grafting and mitral valve repair on 03/02/2023 , presented to hospital with fever lower sternal wound dehiscence with purulent drainage and abnormal CT. On today's evaluation that is 04/01/2023, the patient remains to be afebrile the patient is breathing comfortably on room air , the patient is complaining of pain to the lower sternal wound/incision, patient mentioned did have a minimal drainage , patient did have some nausea but no vomiting no abdominal pain or diarrhea Objective - Vital Signs Vital signs: Vital Signs Temp 97.9 F 04/01/23 11:31 Pulse 70 04/01/23 11:31 Resp 18 04/01/23 11:31 BP 109/56 04/01/23 11:31 Pulse Ox 99 04/01/23 11:31 FiO2 21 03/30/23 07:42 Intake & Output 03/31/23 04/01/23 04/01/23 18:59 06:59 18:59 Intake Total 480 480 Output Total 750 Balance -270 480 Weight 74.6 kg 73.4 kg Intake: Oral 480 480 Output: Urine 750 Other: Voiding Method Toilet Toilet Toilet # Voids 1 1 - Exam GENERAL DESCRIPTION: An elderly female lying in bed in no distress RESPIRATORY SYSTEM: Unlabored breathing , decreased breath sounds at bases HEART: S1 S2 regular rate and rhythm , lower sternal wound base with no slough tissue no further drainage was noticed today ABDOMEN: Soft , no tenderness EXTREMITIES: No edema feet - Labs CBC & Chem 7: 04/01/23 08:20 04/01/23 08:20 Labs: Abnormal Lab Results - Last 24 Hours (Table) 03/31/23 04/01/23 04/01/23 Range/Units 16:24 06:06 08:20 WBC 15.1 H (3.8-10.6) k/uL Hgb 9.9 L (11.4-16.0) gm/dL MCHC 29.0 L (31.0-37.0) g/dL Plt Count 486 H (150-450) k/uL BUN (7-17) mg/dL POC Glucose (mg/dL) 175 H 112 H (70-110) mg/dL 04/01/23 04/01/23 Range/Units 08:20 11:43 WBC (3.8-10.6) k/uL Hgb (11.4-16.0) gm/dL MCHC (31.0-37.0) g/dL Plt Count (150-450) k/uL BUN 20 H (7-17) mg/dL POC Glucose (mg/dL) 169 H (70-110) mg/dL Microbiology - Last 24 Hours (Table) 03/28/23 10:48 Anaerobic Culture - Preliminary Chest 03/28/23 21:03 Blood Culture Gram Stain - Preliminary Blood Blood Culture - Preliminary Staphylococcus aureus Assessment and Plan (1) Sepsis Current Visit: Yes Status: Acute Code(s): A41.9 - SEPSIS, UNSPECIFIED ORGANISM SNOMED Code(s): 97983477 (2) Surgical wound dehiscence Current Visit: No Status: Acute Code(s): T81.31XA - DISRUPTION OF EXTERNAL OPERATION (SURGICAL) WOUND, NEC, INIT SNOMED Code(s): 52104548 Plan: Patient presented to hospital with sepsis in this patient with a fever tachycardia elevated white count source being sternal wound infection with dehiscence of the lower end of the incision patient did have abnormal CT with multiple foci of air and now with evidence for significant purulent drainage on examination patient has been reevaluated by CT surgery did not recommend any surgical debridement 2Local cultures have been finalized with MSSA, patient did have elevated inflammatory markers, blood cultures obtained, with positive with Staphylococcus aureus likely MSSA 3blood cultures has been repeated to document clearance of bacteremia, patient did have worsening of the white count is up to 15,000 which is slightly concerning and a questionable possible deep collection that may need to be drained, continue with cefazolin and repeat a CBC with a.m. lab Time with Patient: Less than 30
[2023-04-01 16:39] LABS: Glucose,Whole Blood 157 mg/dL (70-110)
[2023-04-01 19:50] LABS: Glucose,Whole Blood 126 mg/dL (70-110)
[2023-04-01] MEDS: LATANOPROST 0.005% OPHTH DROPS 2.5 ML BTL BOTH EYES SCH (20:10)
[2023-04-02] MEDS: INSULIN ASPART (NovoLOG) 100 UNIT/ML VIAL SQ SCH ×4 (05:52→20:28)
[2023-04-02 05:53] LABS: Glucose,Whole Blood 122 mg/dL (70-110)
[2023-04-02] MEDS: PANTOPRAZOLE 40 MG TABLET PO SCH (06:01)
--- NOTE | 2023-04-02 08:01 | XR ---
EXAMINATION TYPE: XR chest 2V DATE OF EXAM: 04/02/2023 COMPARISON: 04/01/2023 HISTORY: 78-year-old female post cardiac surgery TECHNIQUE: PA and lateral views FINDINGS: Heart upper limits of normal in size. Median sternotomy wires and post-CABG clips and annuloplasty ri ng. Mild interstitial/vascular prominence remains. No consolidation. Trace pleural effusion on the la teral view. IMPRESSION: Similar mild pulmonary vascular congestion and trace pleural effusion.
[2023-04-02] MEDS: ALBUTEROL INHALATION PRN ×4 (08:10→21:23)
[2023-04-02] MEDS: predniSONE 10 MG TAB PO SCH (09:01)
[2023-04-02] MEDS: ASCORBIC ACID 500 MG TAB PO SCH (09:01)
[2023-04-02] MEDS: ASPIRIN 81 MG PO SCH (09:01)
[2023-04-02] MEDS: ATORVASTATIN 10 MG TAB PO SCH (09:01)
[2023-04-02] MEDS: METOPROLOL TARTRATE 50 MG TAB PO SCH ×2 (09:01→20:28)
[2023-04-02] MEDS: metFORMIN 500 MG TAB PO SCH ×2 (09:01→20:28)
[2023-04-02] MEDS: FUROSEMIDE 40 MG TAB PO SCH (09:01)
[2023-04-02] MEDS: MULTIVITAMINS, THERA 1 EACH TAB PO SCH (09:01)
[2023-04-02] MEDS: SPIRONOLACTONE 25 MG TAB PO SCH (09:01)
[2023-04-02] MEDS: LOSARTAN 50 MG TAB PO SCH (09:01)
[2023-04-02] MEDS: APIXABAN 5 MG TAB PO SCH ×2 (09:02→20:28)
[2023-04-02] MEDS: TROSPIUM CHLORIDE 20 MG TABLET PO SCH ×2 (09:11→21:32)
[2023-04-02 10:52] LABS: HCT 34.8 % (34.0-46.0); HGB 10.3 gm/dL (11.4-16.0); Hypochromasia Marked; MCH 25.2 pg (25.0-35.0); MCHC 29.7 g/dL (31.0-37.0); Mean Platelet Volume 7.1; Platelet Count 594 k/uL (150-450); RBC 4.09 m/uL (3.80-5.40); RDW 15.7 % (11.5-15.5); WBC 15.1 k/uL (3.8-10.6)
[2023-04-02 11:13] LABS: Calcium 10.5 mg/dL (8.4-10.2); Potassium 4.5 mmol/L (3.5-5.1); Total Bilirubin 0.5 mg/dL (0.2-1.3); Total Protein 7.5 g/dL (6.3-8.2)
[2023-04-02 11:27] LABS: Glucose,Whole Blood 140 mg/dL (70-110)
--- NOTE | 2023-04-02 11:53 | P.PN ---
Subjective Progress Note Date: 04/02/23 Principal diagnosis: Sternal incision dehiscence with superficial infection, leukocytosis, lactic acidosis. Past medical history significant for coronary artery disease with left main disease and moderate to severe mitral regurgitation status post 2 vessel CABG and mitral valve repair 03/02/23, left lower extremity DVT on eliquis outpatient, cardiomyopathy/chronic systolic heart failure with decreased systolic functionand EF 35%, hypertriglyceridemia, asthma with multiple exa cerbations and chronic steroids, severe restrictive lung disease, diabetes mellitus, previous tobacco dependence, GERD, osteoarthritis, COVID-19 infection in September 2022 The patient was seen and examined in follow-up today 04/02/2023 at her bedside on the cardiac stepdown unit. Currently she is sitting up to the bedside chair, is awake, alert, oriented 3 and is in no acute apparent distress. Denies any complaints of pain or shortness of breath at this time. Reports she has been up ambulating in the stepdown unit hallway with standby assistance from nursing staff and therapy staff. Oxygen saturation are 99% on room air and she is achieving 1250 mL on her incentive spirometry with encouragement. Wound cultures 03/27/23 and 03/28/23 finalized as Staphylococcus aureus, in addition blood cultures from 03/28/23 also showing Staphylococcus aureus. Infectious disease is following and the patient remains on Kefzol 2 g IV piggyback every 8 hours for antibiotic coverage. Reports she feels better today than she has in days past. Objective - Vital Signs Vital signs: Vital Signs Temp 98 F 04/02/23 08:00 Pulse 106 H 04/02/23 11:34 Resp 16 04/02/23 11:34 BP 108/72 04/02/23 11:34 Pulse Ox 100 04/02/23 11:34 FiO2 21 03/30/23 07:42 Intake & Output 04/01/23 04/02/23 04/02/23 18:59 06:59 18:59 Intake Total 720 540 0 Output Total 0 Balance 720 540 0 Intake: Oral 720 540 0 Output: Urine 0 Stool 0 Urine/Stool Mix 0 Emesis 0 Oral Regurgitation 0 Other 0 Other: Voiding Method Toilet Toilet Toilet # Voids 2 1 0 # Bowel Movements 0 - Exam CONSTITUTIONAL: Appears comfortable, cooperative, no acute distress. RESPIRATORY: Lungs sounds diminished bilaterally. Respirations are symmetrical, nonlabored. Currently on room air with oxygen saturation 99%. Able to achieve 1250 mL on incentive spirometry. Strong nonproductive cough. CARDIOVASCULAR: S1, S2 present. Regular rate and rhythm, sinus rhythm on telemetry. Sternum stable. Palpable peripheral pulses bilaterally. No edema present. No calf pain or tenderness noted. Heart hugger in place with patient demonstrating appropriate use. Antiembolism stockings, SCDs present. GASTROINTESTINAL: Abdomen soft, nontender, nondistended. Active bowel sounds present 4 quadrants. Tolerating diet. GENITOURINARY: Continues to void although sometimes incontinent. INTEGUMENTARY: Skin is warm and dry. No clubbing or cyanosis is present. Midline sternal chest incision dehisced, granulation tissue present, some scant purulent drainage although less every day. Left lower extremity EVH site well approximated without redness or drainage. NEUROLOGIC: Cranial nerves II through XII intact. MUSKULOSKELETAL: Able to move all extremities, strength equal bilaterally. PSYCHIATRIC: Alert and oriented to person place and time, appropriate affect, intact judgment and insight. - Labs CBC & Chem 7: 04/02/23 10:21 04/02/23 10:21 Labs: Abnormal Lab Results - Last 24 Hours (Table) 04/01/23 04/01/23 04/01/23 Range/Units 11:43 16:37 19:48 WBC (3.8-10.6) k/uL Hgb (11.4-16.0) gm/dL MCHC (31.0-37.0) g/dL RDW (11.5-15.5) % Plt Count (150-450) k/uL Sodium (137-145) mmol/L BUN (7-17) mg/dL Glucose (74-99) mg/dL POC Glucose (mg/dL) 169 H 157 H 126 H (70-110) mg/dL Calcium (8.4-10.2) mg/dL 04/02/23 04/02/23 04/02/23 Range/Units 05:51 10:21 10:21 WBC 15.1 H (3.8-10.6) k/uL Hgb 10.3 L (11.4-16.0) gm/dL MCHC 29.7 L (31.0-37.0) g/dL RDW 15.7 H (11.5-15.5) % Plt Count 594 H (150-450) k/uL Sodium 136 L (137-145) mmol/L BUN 24 H (7-17) mg/dL Glucose 111 H (74-99) mg/dL POC Glucose (mg/dL) 122 H (70-110) mg/dL Calcium 10.5 H (8.4-10.2) mg/dL 04/02/23 Range/Units 11:26 WBC (3.8-10.6) k/uL Hgb (11.4-16.0) gm/dL MCHC (31.0-37.0) g/dL RDW (11.5-15.5) % Plt Count (150-450) k/uL Sodium (137-145) mmol/L BUN (7-17) mg/dL Glucose (74-99) mg/dL POC Glucose (mg/dL) 140 H (70-110) mg/dL Calcium (8.4-10.2) mg/dL Microbiology - Last 24 Hours (Table) 03/31/23 16:30 Blood Culture - Preliminary Blood 03/28/23 21:03 Blood Culture Gram Stain - Final Blood Blood Culture - Final Staphylococcus aureus Assessment and Plan Assessment: Sternal incision dehiscence with SUPERFICIAL infection, 03/27/23 and 03/28/23 wound cultures positive for Staphylococcus aureus, 03/28/23 blood cultures positive for Staphylococcus aureus Leukocytosis Lactic acidosis, resolved History of coronary artery disease with left main disease status post 2 vessel CABG 03/02/23 History of moderate to severe mitral regurgitation status post mitral valve repair 03/02/2023 Postoperative hypotension and acute delirium, resolved Left lower extremity DVT on eliquis outpatient, last dose 03/25/23 am Cardiomyopathy/chronic systolic heart failure with decreased systolic function and EF 35% Hypertriglyceridemia, TG 201 Asthma with multiple exacerbations and chronic steroids Severe restrictive lung disease, FEV1 42% of predicted Diabetes mellitus, A1c 6.9% Previous tobacco dependence GERD Osteoarthritis COVID-19 infection in September 2022 Plan: No surgical intervention is planned at this time. Continue wet to dry dressing change daily and prn, shower daily. Antibiotic recommendations per infectious disease. Continue home medications including eliquis. Sternal precautions remain in place, heart hugger is in place. Incentive spirometry encouraged 10 times every hour while awake. Increase activity as tolerated, PT/OT following. Monitor blood sugars closely, hyperglycemia contributes to infection especially since patient is on chronic steroids. Will monitor daily labs and chest x-ray. Recommend discharge to home with home care with follow up in wound care center when able. More recommendations to follow based on patient's clinical course. Time with Patient: Greater than 30
--- NOTE | 2023-04-02 15:13 | P.PN ---
Subjective Progress Note Date: 04/02/23 Principal diagnosis: Sternal wound infection Patient is a 78-year-old -[place] female with a past medical history significant for coronary artery disease in this patient with status post two- vessel coronary bypass grafting and mitral valve repair on 03/02/2023 , presented to hospital with fever lower sternal wound dehiscence with purulent drainage and abnormal CT. On today's evaluation that is 04/02/2023, the patient continues to be afebrile the patient is breathing comfortably on room air , the patient pain to the lower sternal wound/incisionhas decreased in intensity , patient mentioned did have a minimal drainage , patient as been complaining of reflux but no abdominal pain no diarrhea Objective - Vital Signs Vital signs: Vital Signs Temp 98 F 04/02/23 08:00 Pulse 106 H 04/02/23 11:34 Resp 16 04/02/23 11:34 BP 108/72 04/02/23 11:34 Pulse Ox 100 04/02/23 11:34 FiO2 21 03/30/23 07:42 Intake & Output 04/01/23 04/02/23 04/02/23 18:59 06:59 18:59 Intake Total 720 540 0 Output Total 0 Balance 720 540 0 Intake: Oral 720 540 0 Output: Urine 0 Stool 0 Urine/Stool Mix 0 Emesis 0 Oral Regurgitation 0 Other 0 Other: Voiding Method Toilet Toilet Toilet # Voids 2 1 0 # Bowel Movements 0 - Exam GENERAL DESCRIPTION: An elderly female lying in bed in no distress RESPIRATORY SYSTEM: Unlabored breathing , decreased breath sounds at bases HEART: S1 S2 regular rate and rhythm , lower sternal wound base with no slough tissue no further drainage was noticed today ABDOMEN: Soft , no tenderness EXTREMITIES: No edema feet - Labs CBC & Chem 7: 04/02/23 10:21 04/02/23 10:21 Labs: Abnormal Lab Results - Last 24 Hours (Table) 04/01/23 04/01/23 04/02/23 Range/Units 16:37 19:48 05:51 WBC (3.8-10.6) k/uL Hgb (11.4-16.0) gm/dL MCHC (31.0-37.0) g/dL RDW (11.5-15.5) % Plt Count (150-450) k/uL Sodium (137-145) mmol/L BUN (7-17) mg/dL Glucose (74-99) mg/dL POC Glucose (mg/dL) 157 H 126 H 122 H (70-110) mg/dL Calcium (8.4-10.2) mg/dL 04/02/23 04/02/23 04/02/23 Range/Units 10:21 10:21 11:26 WBC 15.1 H (3.8-10.6) k/uL Hgb 10.3 L (11.4-16.0) gm/dL MCHC 29.7 L (31.0-37.0) g/dL RDW 15.7 H (11.5-15.5) % Plt Count 594 H (150-450) k/uL Sodium 136 L (137-145) mmol/L BUN 24 H (7-17) mg/dL Glucose 111 H (74-99) mg/dL POC Glucose (mg/dL) 140 H (70-110) mg/dL Calcium 10.5 H (8.4-10.2) mg/dL Microbiology - Last 24 Hours (Table) 03/31/23 16:30 Blood Culture - Preliminary Blood 03/28/23 21:03 Blood Culture Gram Stain - Final Blood Blood Culture - Final Staphylococcus aureus Assessment and Plan (1) Sepsis Current Visit: Yes Status: Acute Code(s): A41.9 - SEPSIS, UNSPECIFIED ORG ANISM SNOMED Code(s): 98393372 (2) Surgical wound dehiscence Current Visit: No Status: Acute Code(s): T81.31XA - DISRUPTION OF EXTERNAL OPERATION (SURGICAL) WOUND, NEC, INIT SNOMED Code(s): 75439499 Plan: Patient presented to hospital with sepsis in this patient with a fever tachycardia elevated white count source being sternal wound infection with dehiscence of the lower end of the incision patient did have abnormal CT with multiple foci of air and now with evidence for significant purulent drainage on examination patient has been reevaluated by CT surgery did not recommend any surgical debridement 2Local cultures have been finalized with MSSA, patient did have elevated inflammatory markers, blood cultures obtained, with positive with Staphylococcus aureus likely MSSA 3blood cultures has been repeated to document clearance of bacteremia, patient did have worsening of the white count is up to 15,000, cultures also now growing anaerobes and could be responsible for this elevated white count we will add Flagyl continued cefazolin repeat a CBC with a.m. lab Time with Patient: Less than 30
[2023-04-02 16:35] LABS: Glucose,Whole Blood 133 mg/dL (70-110)
[2023-04-02] MEDS: metroNIDAZOLE-NS PMX 500 MG in SALINE 1 100ML.BAG IVPB SCH (17:13)
[2023-04-02 19:59] LABS: Glucose,Whole Blood 152 mg/dL (70-110)
[2023-04-02] MEDS: LATANOPROST 0.005% OPHTH DROPS 2.5 ML BTL BOTH EYES SCH (20:28)
[2023-04-03] MEDS: metroNIDAZOLE-NS PMX 500 MG in SALINE 1 100ML.BAG IVPB SCH ×4 (00:37→23:56)
[2023-04-03 06:22] LABS: Glucose,Whole Blood 109 mg/dL (70-110)
[2023-04-03] MEDS: PANTOPRAZOLE 40 MG TABLET PO SCH (06:38)
[2023-04-03] MEDS: INSULIN ASPART (NovoLOG) 100 UNIT/ML VIAL SQ SCH ×4 (06:38→20:24)
--- NOTE | 2023-04-03 07:02 | XR ---
EXAMINATION TYPE: XR chest 2V DATE OF EXAM: 04/03/2023 6:17 AM COMPARISON: Chest radiographs from TECHNIQUE: XR chest 2V . CLINICAL INDICATION:Female, 78 years old with history of post op cardiac surgery; FINDINGS: Lungs/Pleura: There is no evidence of pleural effusion, focal consolidation, or pneumothorax. Pulmonary vascularity: Unremarkable. Heart/mediastinum: Cardiomediastinal silhouette is prominent in size and stable. Post-CABG changes w ith annuloplasty ring. Left atrial appendage clip. Musculoskeletal: Multiple level degenerative disc disease changes seen throughout the spine. Midline sternotomy wires are noted and stable. Orthopedic anchor within the right humeral head. IMPRESSION: Post CABG changes with resolution of previously seen right pleural effusion.
[2023-04-03] MEDS: ALBUTEROL INHALATION PRN ×4 (07:41→21:31)
[2023-04-03] MEDS: METOPROLOL TARTRATE 50 MG TAB PO SCH ×2 (08:55→20:24)
[2023-04-03] MEDS: ASPIRIN 81 MG PO SCH (08:55)
[2023-04-03] MEDS: LOSARTAN 50 MG TAB PO SCH (08:55)
[2023-04-03] MEDS: ASCORBIC ACID 500 MG TAB PO SCH (08:55)
[2023-04-03] MEDS: predniSONE 10 MG TAB PO SCH (08:55)
[2023-04-03] MEDS: MULTIVITAMINS, THERA 1 EACH TAB PO SCH (08:55)
[2023-04-03] MEDS: ATORVASTATIN 10 MG TAB PO SCH (08:55)
[2023-04-03] MEDS: FUROSEMIDE 40 MG TAB PO SCH (08:55)
[2023-04-03] MEDS: APIXABAN 5 MG TAB PO SCH ×2 (08:55→20:24)
[2023-04-03] MEDS: metFORMIN 500 MG TAB PO SCH ×2 (08:55→20:24)
[2023-04-03] MEDS: SPIRONOLACTONE 25 MG TAB PO SCH (08:55)
[2023-04-03] MEDS: TROSPIUM CHLORIDE 20 MG TABLET PO SCH ×2 (09:08→20:24)
--- NOTE | 2023-04-03 09:37 | P.PN ---
Subjective Progress Note Date: 04/02/23 This is a 78-year-old female who presented to the emergency department with chest wall pain at her surgical site as she recently had mitral valve replacement with CABG approximately one month ago. Patient reports to having some opening of the incisional site and was seen at the cardiothoracic surgery office. Patient reports she did have chills the night before but did not check her temperature. Patient reports she was febrile in the emergency department. Patient follows with Dr. Pearson in the outpatient setting with a past medical history of asthma, coronary artery disease, diabetes mellitus, GERD, hyperlipidemia, Osteoarthritis, cardiomyopathy. Patient denies drug use or tobacco use and denies any alcohol use. Dr. Jackson of cardiothoracic surgery evaluated the patient requesting to be admitted to medicine service with them on consult. Wound care was also consulted. Patient was started on vancomycin and also being started on heparin IV. EKG showed sinus tachycardia, chest x-ray showed cardiomegaly without suspicious new acute pulmonary process. Chest CT was done showing sternotomy changes with fat stranding along the superficial and deep aspects of the sternum some of this may be secondary to healing changes and multiple foci of gas present in the superficial surgical bed just anterior to the sternum with superimposed infection and surgery was noted to be on 03/02/2023. No drainable fluid collection visualized at the superficial and deep portions however also reports CT is not great differential eating softer tissues and there is a trace right pleural effusion. Home medications have been reviewed and resumed and would recommend diabetes management with tight glycemic control and Accu-Cheks before meals and at bedtime 03/28. Patient seen and examined. Nursing staff noticed a lot of purulent discharge from the sternotomy incision site . Patient denies any fever. Complaining of pain at the site of surgery Lab work this morning showed white count 14.4, hemoglobin 9.1, sodium 136, potassium 4.1, chloride 100, BUN 17, creatinine 0.82 03/29. Patient seen and examined. WBC this morning is 12.7, hemoglobin 10.5, sodium 137, potassium 4.6, BUN 11 creatinine 0.7. States chest pain is improved compared to yesterday, not much discharge this morning 03/30. Patient seen and examined. No acute issues overnight. Vital signs stable. Patient still noticing purulent discharge from her sternotomy site 03/31. Patient seen and examined. Sitting upright in the chair.labs this morning showed white count 13.1, hemoglobin 9.5, platelet count 367, sodium 136, BUN 14, creatinine 0.7 04/01. Patient seen and examined. Initial lab work this morning white count is 15.1, hemoglobin 9.9, sodium 137, potassium 4.5, BUN 20, creatinine 0.81. Vital signs are temperature 97.7, heart rate 100, respiratory rate 20, blood pressure 101/55. Complaint of generalized lethargy and weakness. Complains of poor appetite 04/02/2023 Patient is currently sitting in the bed. Awake alert and oriented x3. Denies any complaints of chest pain. Shortness of breath is improving. Patient has been afebrile. Continued on antibiotics for sternal surgical wound with delusions at the lower end of the incision. Wound care is being done. Patient is being continued on antibiotics in the form of cefazolin. Blood cultures grew Staph aureus and as well as wound cultures. Repeat blood cultures have been negative since 03/31/2023. ID is on board. Laboratory data showed WBC 15.1 hemoglobin 10.3 and platelets 594 sodium 136 potassium 4.5 chloride 99 bicarb is 26 BUN 24 and creatinine 0.80 and blood sugar 111 and calcium 10.5. Current medications reviewed. REVIEW OF SYSTEMS: CONSTITUTIONAL: No fever, no malaise,. CARDIOVASCULAR: No chest pain, no palpitations, no syncope. PULMONARY: No shortness of breath, no cough, GASTROINTESTINAL: No diarrhea, , no abdominal pain. NEUROLOGICAL: No headaches, no weakness, PHYSICAL EXAMINATION: GENERAL: The patient is alert and oriented x3, not in any acute distress. Well developed, well nourished. HEENT: Pupils are round and equally reacting to light. EOMI. No scleral icterus. No conjunctival pallor. Normocephalic, atraumatic. No pharyngeal erythema. No thyromegaly. CARDIOVASCULAR: S1 and S2 present. No murmurs, rubs, or gallops. Sternotomy surgical incision bandaged. no discharge. PULMONARY: Chest is clear to auscultation, no wheezing or crackles. Sternotomy incision seen ABDOMEN: Soft, nontender, nondistended, normoactive bowel sounds. No palpable organomegaly. MUSCULOSKELETAL: No joint swelling or deformity. EXTREMITIES: No cyanosis, clubbing, or pedal edema. NEUROLOGICAL: Gross neurological examination did not reveal any focal deficits. SKIN: No rashes. Assessment and plan Sepsis MSSA bacteremia Recent CABG on 03/02/2023 with sternal incision site dehiscence with infection Leukocytosis, secondary to above Lactic acidosis, present on admission secondary to above, improved History of moderate to severe mitral regurgitation with mitral valve repair during CABG on 03/02/2023 Recent readmission with left lower extremity pain, positive for DVT started on eliquis Cardiomyopathy History of congestive heart failure, systolic dysfunction with most recent EF being 35% Diabetes mellitus GERD History of asthma, not in exacerbation Former smoker Hyperlipidemia Plan; Monitor vital signs Monitor CBC Monitor CMP blood cultures positive for MSSA Continue wound care Continue IV cefazolin Continue Eliquis Follow-up in ID recs CT surgery following, no plan for any surgical debridement, recommend dischar ging with IV antibiotics and home care Objective - Vital Signs Vital signs: Vital Signs Temp 98 F 04/02/23 08:00 Pulse 94 04/02/23 16:00 Resp 16 04/02/23 16:00 BP 122/94 04/02/23 16:00 Pulse Ox 99 04/02/23 16:00 FiO2 21 03/30/23 07:42 Intake & Output 04/02/23 04/02/23 04/03/23 06:59 18:59 06:59 Intake Total 540 240 Output Total 400 Balance 540 -160 Intake: Oral 540 240 Output: Urine 400 Stool 0 Urine/Stool Mix 0 Emesis 0 Oral Regurgitation 0 Other 0 Other: Voiding Method Toilet Toilet # Voids 1 0 # Bowel Movements 0 - Labs CBC & Chem 7: 04/02/23 10:21 04/02/23 10:21 Labs: Abnormal Lab Results - Last 24 Hours (Table) 04/02/23 04/02/23 04/02/23 Range/Units 05:51 10:21 10:21 WBC 15.1 H (3.8-10.6) k/uL Hgb 10.3 L (11.4-16.0) gm/dL MCHC 29.7 L (31.0-37.0) g/dL RDW 15.7 H (11.5-15.5) % Plt Count 594 H (150-450) k/uL Sodium 136 L (137-145) mmol/L BUN 24 H (7-17) mg/dL Glucose 111 H (74-99) mg/dL POC Glucose (mg/dL) 122 H (70-110) mg/dL Calcium 10.5 H (8.4-10.2) mg/dL 04/02/23 04/02/23 04/02/23 Range/Units 11:26 16:33 19:58 WBC (3.8-10.6) k/uL Hgb (11.4-16.0) gm/dL MCHC (31.0-37.0) g/dL RDW (11.5-15.5) % Plt Count (150-450) k/uL Sodium (137-145) mmol/L BUN (7-17) mg/dL Glucose (74-99) mg/dL POC Glucose (mg/dL) 140 H 133 H 152 H (70-110) mg/dL Calcium (8.4-10.2) mg/dL Microbiology - Last 24 Hours (Table) 03/27/23 18:06 Anaerobic Culture - Final Chest Anaerobic Gram Positive Cocci 03/28/23 10:48 Anaerobic Culture - Final Chest 03/31/23 16:30 Blood Culture - Preliminary Blood
[2023-04-03 10:48] LABS: Basophils # (A) 0.1 k/uL (0-0.2); Basophils % (A) 0 %; Eosinophils # (A) 0.2 k/uL (0-0.7); Eosinophils % (A) 1 %; HCT 35.4 % (34.0-46.0); HGB 10.5 gm/dL (11.4-16.0); Hypochromasia Marked; Lymphocytes # (A) 3.8 k/uL (1.0-4.8); Lymphocytes % (A) 28 %; MCH 25.2 pg (25.0-35.0); MCHC 29.7 g/dL (31.0-37.0); MCV 84.9 fL (80.0-100.0); Mean Platelet Volume 7.4; Monocytes # (A) 0.6 k/uL (0-1.0); Monocytes % (A) 4 %; Neutrophils # (A) 8.6 k/uL (1.3-7.7); Neutrophils % (A) 63 %; Platelet Count 540 k/uL (150-450); Poikilocytosis Slight; RBC 4.17 m/uL (3.80-5.40); RDW 15.3 % (11.5-15.5); WBC 13.5 k/uL (3.8-10.6)
[2023-04-03 10:57] LABS: C Reactive Protein 2.8 mg/dL (<1.0); Calcium 10.2 mg/dL (8.4-10.2); Potassium 4.1 mmol/L (3.5-5.1); Total Bilirubin 0.4 mg/dL (0.2-1.3); Total Protein 7.5 g/dL (6.3-8.2)
--- NOTE | 2023-04-03 11:39 | P.PN ---
Subjective Progress Note Date: 04/03/23 Principal diagnosis: Sternal incision dehiscence with superficial infection, leukocytosis, lactic acidosis. History of coronary artery disease with left main disease and moderate to severe mitral regurgitation status post 2 vessel CABG and mitral valve repair 03/02/23, left lower extremity DVT on eliquis outpatient, cardiomyopathy/chronic systolic heart failure with decreased systolic functionand EF 35%, hypertriglyceridemia, asthma with multiple exacerbations and chronic steroids, severe restrictive lung disease, diabetes mellitus, previous tobacco dependence, GERD, osteoarthritis, COVID-19 infection in September 2022 The patient was seen and examined this morning sitting up in a recliner on the cardiac stepdown unit in no acute distress eating breakfast. Remains in sinus rhythm, hemodynamically stable, on room air, remains afebrile. States mild postoperative pain is controlled with Tylenol. Patient has been ambulatory in her room and out in the hallway. Being seen by PT/OT. Wound cultures 03/27/23 and 03/28/23 as well as anaerobic culture finalized as MSSA, in addition blood cultures from 03/28/23 growing MSSA, blood cultures from 03/31 and 04/01 preliminarily with no growth. Continues on ancef IV per infectious disease, flagyl added by infectious disease yesterday due to anaerobic cultures. No surgical debridement planned. Recommend discharge to home with home care when able with follow up in wound care center. Objective - Vital Signs Vital signs: Vital Signs Temp 98.1 F 04/03/23 08:53 Pulse 100 04/03/23 08:53 Resp 18 04/03/23 08:53 BP 128/58 04/03/23 08:53 Pulse Ox 99 04/03/23 08:53 FiO2 21 03/30/23 07:42 Intake & Output 04/02/23 04/03/23 04/03/23 18:59 06:59 18:59 Intake Total 240 240 Output Total 400 0 400 Balance -160 0 -160 Intake: Oral 240 240 Output: Urine 400 400 Stool 0 0 Urine/Stool Mix 0 Emesis 0 Oral Regurgitation 0 Other 0 Other: Voiding Method Toilet Toilet Toilet # Voids 0 0 # Bowel Movements 0 - Exam CONSTITUTIONAL: Appears comfortable, cooperative, no acute distress RESPIRATORY: Lungs sounds diminished bilaterally. Respirations even, nonlabored. Currently on room air with oxygen saturation 99%. Able to achieve 9326-7106 mL on incentive spirometry. Strong nonproductive cough. CARDIOVASCULAR: S1, S2 present. Regular rate and rhythm, sinus rhythm on telemetry. Sternum stable. Palpable peripheral pulses bilaterally. No edema present. No calf pain or tenderness noted. Heart hugger in place with patient demonstrating appropriate use. Antiembolism stockings, SCDs present. GASTROINTESTINAL: Abdomen soft, nontender, nondistended. Active bowel sounds present 4 quadrants. Tolerating diet. GENITOURINARY: Continues to void although sometimes incontinent INTEGUMENTARY: Skin is warm and dry. Anterior chest incision dehisced, granulation tissue present. Left lower extremity EVH site well approximated without redness or drainage. NEUROLOGIC: Cranial nerves II through XII intact MUSKULOSKELETAL: Able to move all extremities, strength equal bilaterally PSYCHIATRIC: Alert and oriented to person place and time, appropriate affect, intact judgment and insight - Allied health notes Allied health notes reviewed: nursing - Labs CBC & Chem 7: 04/03/23 09:33 04/03/23 09:33 Labs: Abnormal Lab Results - Last 24 Hours (Table) 04/02/23 04/02/23 04/03/23 Range/Units 16:33 19:58 09:33 WBC 13.5 H (3.8-10.6) k/uL Hgb 10.5 L (11.4-16.0) gm/dL MCHC 29.7 L (31.0-37.0) g/dL Plt Count 540 H (150-450) k/uL Neutrophils # 8.6 H (1.3-7.7) k/uL Chloride (98-107) mmol/L BUN (7-17) mg/dL Creatinine (0.52-1.04) mg/dL Glucose (74-99) mg/dL POC Glucose (mg/dL) 133 H 152 H (70-110) mg/dL C-Reactive Protein (<1.0) mg/dL 04/03/23 Range/Units 09:33 WBC (3.8-10.6) k/uL Hgb (11.4-16.0) gm/dL MCHC (31.0-37.0) g/dL Plt Count (150-450) k/uL Neutrophils # (1.3-7.7) k/uL Chloride 95 L (98-107) mmol/L BUN 28 H (7-17) mg/dL Creatinine 1.08 H (0.52-1.04) mg/dL Glucose 142 H (74-99) mg/dL POC Glucose (mg/dL) (70-110) mg/dL C-Reactive Protein 2.8 H (<1.0) mg/dL Microbiology - Last 24 Hours (Table) 03/31/23 16:30 Blood Culture - Preliminary Blood 04/01/23 08:20 Blood Culture - Preliminary Blood 03/27/23 18:06 Anaerobic Culture - Final Chest Anaerobic Gram Positive Cocci 03/28/23 10:48 Anaerobic Culture - Final Chest - Imaging and Cardiology Chest x-ray: report reviewed, image reviewed Assessment and Plan Assessment: Sternal incision dehiscence with SUPERFICIAL infection, 03/27/23 and 03/28/23 culture positive for MSSA as well as anaerobic culture, 03/27/23 blood cultures positive for MSSA, 03/31 and 04/01 blood cultures preliminarily show no growth Leukocytosis Lactic acidosis, resolved History of coronary artery disease with left main disease status post 2 vessel CABG 03/02/23 History of moderate to severe mitral regurgitation status post mitral valve repair 03/02/2023 Postoperative hypotension and acute delirium, resolved Left lower extremity DVT on eliquis outpatient, last dose 03/25/23 am Cardiomyopathy/chronic systolic heart failure with decreased systolic functionand EF 35% Hypertriglyceridemia, TG 201 Asthma with multiple exacerbations and chronic steroids Severe restrictive lung disease, FEV1 42% of predicted Diabetes mellitus, A1c 6.9% Previous tobacco dependence GERD Osteoarthritis COVID-19 infection in September 2022 Plan: Dr. sAtorga evaluated patient, no surgical intervention warranted Wet to dry dressing change daily and prn, shower daily Antibiotics per infectious disease Continue home medications including eliquis, lasix decreased today Sternal precautions remain in place Incentive spirometry encouraged Increase activity as tolerated, PT/OT following Monitor blood sugars closely, hyperglycemia contributes to infection especially since patient is on chronic steroids Will monitor daily labs and CXR Recommend discharge to home with home care with follow up in wound care center when able More recommendations to follow
[2023-04-03 11:47] LABS: Glucose,Whole Blood 134 mg/dL (70-110)
[2023-04-03] MEDS: SENNOSIDES-DOCUSATE SODIUM 1 EACH TAB PO PRN (12:15)
--- NOTE | 2023-04-03 13:28 | P.PN ---
Subjective Progress Note Date: 04/03/23 Principal diagnosis: Sternal wound infection Patient is a 78-year-old -[place] female with a past medical history significant for coronary artery disease in this patient with status post two- vessel coronary bypass grafting and mitral valve repair on 03/02/2023 , presented to hospital with fever lower sternal wound dehiscence with purulent drainage and abnormal CT. On today's evaluation that is 04/03/2023, the patient remains to be afebrile the patient is breathing comfortably on room air , the patient pain to the lower sternal wound/incisionhas decreased in intensity , patient mentioned drainage has resolved , patient as been complaining of nausea and reflux but no abdominal pain no diarrhea Objective - Vital Signs Vital signs: Vital Signs Temp 98.1 F 04/03/23 08:53 Pulse 100 04/03/23 08:53 Resp 18 04/03/23 08:53 BP 128/58 04/03/23 08:53 Pulse Ox 99 04/03/23 08:53 FiO2 21 03/30/23 07:42 Intake & Output 04/02/23 04/03/23 04/03/23 18:59 06:59 18:59 Intake Total 240 240 Output Total 400 0 400 Balance -160 0 -160 Intake: Oral 240 240 Output: Urine 400 400 Stool 0 0 Urine/Stool Mix 0 Emesis 0 Oral Regurgitation 0 Other 0 Other: Voiding Method Toilet Toilet Toilet # Voids 0 0 # Bowel Movements 0 - Exam GENERAL DESCRIPTION: An elderly female lying in bed in no distress RESPIRATORY SYSTEM: Unlabored breathing , decreased breath sounds at bases HEART: S1 S2 regular rate and rhythm , lower sternal wound base with no slough tissue no further drainage was noticed today ABDOMEN: Soft , no tenderness EXTREMITIES: No edema feet - Labs CBC & Chem 7: 04/03/23 09:33 04/03/23 09:33 Labs: Abnormal Lab Results - Last 24 Hours (Table) 04/02/23 04/02/23 04/03/23 Range/Units 16:33 19:58 09:33 WBC 13.5 H (3.8-10.6) k/uL Hgb 10.5 L (11.4-16.0) gm/dL MCHC 29.7 L (31.0-37.0) g/dL Plt Count 540 H (150-450) k/uL Neutrophils # 8.6 H (1.3-7.7) k/uL Chloride (98-107) mmol/L BUN (7-17) mg/dL Creatinine (0.52-1.04) mg/dL Glucose (74-99) mg/dL POC Glucose (mg/dL) 133 H 152 H (70-110) mg/dL C-Reactive Protein (<1.0) mg/dL 04/03/23 04/03/23 Range/Units 09:33 11:45 WBC (3.8-10.6) k/uL Hgb (11.4-16.0) gm/dL MCHC (31.0-37.0) g/dL Plt Count (150-450) k/uL Neutrophils # (1.3-7.7) k/uL Chloride 95 L (98-107) mmol/L BUN 28 H (7-17) mg/dL Creatinine 1.08 H (0.52-1.04) mg/dL Glucose 142 H (74-99) mg/dL POC Glucose (mg/dL) 134 H (70-110) mg/dL C-Reactive Protein 2.8 H (<1.0) mg/dL Microbiology - Last 24 Hours (Table) 03/31/23 16:30 Blood Culture - Preliminary Blood 04/01/23 08:20 Blood Culture - Preliminary Blood 03/27/23 18:06 Anaerobic Culture - Final Chest Anaerobic Gram Positive Cocci 03/28/23 10:48 Anaerobic Culture - Final Chest Assessment and Plan (1) Sepsis Current Visit: Yes Status: Acute Code(s): A41.9 - SEPSIS, UNSPECIFIED ORGANISM SNOMED Code(s): 37021598 (2) Surgical wound dehiscence Current Visit: No Status: Acute Code(s): T81.31XA - DISRUPTION OF EXTERNAL OPERATION (SURGICAL) WOUND, NEC, INIT SNOMED Code(s): 02709280 Plan: Patient presented to hospital with sepsis in this patient with a fever tachycardia elevated white count source being sternal wound infection with dehiscence of the lower end of the incision patient did have abnormal CT with multiple foci of air and now with evidence for significant purulent drainage on examination patient has been reevaluated by CT surgery did not recommend any surgical debridement 2Local cultures have been finalized with MSSA, patient did have elevated inflammatory markers, blood cultures obtained, with positive with Staphylococcus aureus likely MSSA 3blood cultures has been repeated on 03/31/2023 and 04/01/2023 so far negative, patient white count did improve with addition of Flagyl yesterday. Continue patient on cefazolin and Flagyl should be able to get a PICC line for outpatient IV antibiotic therapy Time with Patient: Less than 30
[2023-04-03 16:55] LABS: Glucose,Whole Blood 165 mg/dL (70-110)
[2023-04-03 20:05] LABS: Glucose,Whole Blood 174 mg/dL (70-110)
[2023-04-03] MEDS: LATANOPROST 0.005% OPHTH DROPS 2.5 ML BTL BOTH EYES SCH (20:26)
[2023-04-04 06:16] LABS: Glucose,Whole Blood 115 mg/dL (70-110)
[2023-04-04] MEDS: INSULIN ASPART (NovoLOG) 100 UNIT/ML VIAL SQ SCH ×4 (06:16→20:17)
[2023-04-04] MEDS: PANTOPRAZOLE 40 MG TABLET PO SCH (06:19)
[2023-04-04] MEDS: APIXABAN 5 MG TAB PO SCH ×2 (08:30→20:17)
[2023-04-04] MEDS: metroNIDAZOLE-NS PMX 500 MG in SALINE 1 100ML.BAG IVPB SCH ×3 (08:30→23:11)
[2023-04-04] MEDS: ASCORBIC ACID 500 MG TAB PO SCH (08:30)
[2023-04-04] MEDS: MULTIVITAMINS, THERA 1 EACH TAB PO SCH (08:30)
[2023-04-04] MEDS: predniSONE 10 MG TAB PO SCH (08:31)
[2023-04-04] MEDS: ASPIRIN 81 MG PO SCH (08:31)
[2023-04-04] MEDS: ATORVASTATIN 10 MG TAB PO SCH (08:31)
[2023-04-04] MEDS: FUROSEMIDE 20 MG TAB PO SCH (08:31)
[2023-04-04] MEDS: SPIRONOLACTONE 25 MG TAB PO SCH (08:31)
[2023-04-04] MEDS: METOPROLOL TARTRATE 50 MG TAB PO SCH ×2 (08:31→20:17)
[2023-04-04] MEDS: SENNOSIDES-DOCUSATE SODIUM 1 EACH TAB PO PRN (08:31)
[2023-04-04] MEDS: TROSPIUM CHLORIDE 20 MG TABLET PO SCH ×2 (08:39→20:17)
[2023-04-04] MEDS: metFORMIN 500 MG TAB PO SCH ×2 (08:40→20:17)
[2023-04-04] MEDS: LOSARTAN 50 MG TAB PO SCH (08:41)
[2023-04-04 08:53] LABS: HCT 34.4 % (34.0-46.0); HGB 10.3 gm/dL (11.4-16.0); Hypochromasia Marked; MCH 25.7 pg (25.0-35.0); MCHC 30.1 g/dL (31.0-37.0); MCV 85.3 fL (80.0-100.0); Mean Platelet Volume 7.3; Platelet Count 440 k/uL (150-450); Poikilocytosis Slight; RBC 4.03 m/uL (3.80-5.40); RDW 15.4 % (11.5-15.5); WBC 12.6 k/uL (3.8-10.6)
[2023-04-04 09:06] LABS: Magnesium 1.9 mg/dL (1.6-2.3)
[2023-04-04] MEDS ORDERED: MAGNESIUM SULFATE-D5W PMX 1 GM in DEXTROSE/WATER 1 100ML.BAG IVPB ONE (09:24)
--- NOTE | 2023-04-04 09:58 | XR ---
EXAMINATION TYPE: XR chest 2V DATE OF EXAM: 04/04/2023 COMPARISON: 04/03/2023 INDICATION: Postcardiac surgery TECHNIQUE: Frontal and lateral views of the chest are obtained. FINDINGS: The heart size is upper limits for normal. The pulmonary vasculature is normal. No suspicious focal consolidation is evident. Sternotomy wires are present from cardiac valve and CAB G surgery.. IMPRESSION: 1. No acute pulmonary process.
--- NOTE | 2023-04-04 10:43 | P.PN ---
Subjective Progress Note Date: 04/04/23 Principal diagnosis: Sternal incision dehiscence with superficial infection, leukocytosis, lactic acidosis. Past medical history significant for coronary artery disease with left main disease and moderate to severe mitral regurgitation status post 2 vessel CABG and mitral valve repair 03/02/23, left lower extremity DVT on eliquis outpatient, cardiomyopathy/chronic systolic heart failure with decreased systolic functionand EF 35%, hypertriglyceridemia, asthma with multiple exa cerbations and chronic steroids, severe restrictive lung disease, diabetes mellitus, previous tobacco dependence, GERD, osteoarthritis, COVID-19 infection in September 2022 The patient was seen and examined in follow-up today 04/04/2023 at her bedside on the cardiac stepdown unit. Currently she is sitting up to bedside chair, is awake, alert, oriented 3 and is in no acute apparent distress. She denies any complaints of pain or shortness of breath at this time, although is complaining of some heartburn and is requesting some Maalox. Oxygen saturations are 99% on room air and she is achieving 1000 mm on her incentive spirometry with much encouragement. She reports she has been up ambulating in the cardiac stepdown unit hallway with standby assistance from nursing and therapy staff. Wound cultures 03/27/23 and 03/28/23 as well as anaerobic culture finalized as MSSA, in addition blood cultures from 03/28/23 growing MSSA, blood cultures from 03/31 and 04/01 preliminarily with no growth. Continues on ancef IV per infectious disease, flagyl added by infectious disease yesterday due to anaerobic cultures. WBC count today is 12.6 which is trending down. T-max temperature in the last 24 hours is 98.1F. Objective - Vital Signs Vital signs: Vital Signs Temp 98.1 F 04/04/23 08:37 Pulse 86 04/04/23 08:37 Resp 18 04/04/23 08:37 BP 108/56 04/04/23 08:37 Pulse Ox 95 04/04/23 08:37 FiO2 21 03/30/23 07:42 Intake & Output 04/03/23 04/04/23 04/04/23 18:59 06:59 18:59 Intake Total 358 Output Total 600 500 Balance -242 -500 Weight 71.5 kg Intake: Oral 358 Output: Urine 600 500 Other: Voiding Method Toilet Toilet Toilet - Exam CONSTITUTIONAL: Appears comfortable, cooperative, no acute distress. RESPIRATORY: Lungs sounds diminished bilaterally. Respirations are symmetrical, nonlabored. Currently on room air with oxygen saturation 99%. Able to achieve 1000 mL on incentive spirometry. Strong nonproductive cough. CARDIOVASCULAR: S1, S2 present. Regular rate and rhythm, sinus rhythm on telemetry. Sternum stable. Palpable peripheral pulses bilaterally. No edema present. No calf pain or tenderness noted. Heart hugger in place with patient demonstrating appropriate use. Antiembolism stockings, SCDs present. GASTROINTESTINAL: Abdomen soft, nontender, nondistended. Active bowel sounds present 4 quadrants. Tolerating diet. GENITOURINARY: Continues to void although sometimes incontinent. INTEGUMENTARY: Skin is warm and dry. No clubbing or cyanosis is present. Midline sternal chest incision dehisced, granulation tissue present, some scant purulent drainage although less every day. Left lower extremity EVH site well approximated without redness or drainage. NEUROLOGIC: Cranial nerves II through XII intact. MUSKULOSKELETAL: Able to move all extremities, strength equal bilaterally. PSYCHIATRIC: Alert and oriented to person place and time, appropriate affect, intact judgment and insight. - Allied health notes Allied health notes reviewed: nursing - Labs CBC & Chem 7: 04/04/23 07:53 04/04/23 07:53 Labs: Abnormal Lab Results - Last 24 Hours (Table) 04/03/23 04/03/23 04/03/23 Range/Units 09:33 09:33 11:45 WBC 13.5 H (3.8-10.6) k/uL Hgb 10.5 L (11.4-16.0) gm/dL MCHC 29.7 L (31.0-37.0) g/dL Plt Count 540 H (150-450) k/uL Neutrophils # 8.6 H (1.3-7.7) k/uL Chloride 95 L (98-107) mmol/L BUN 28 H (7-17) mg/dL Creatinine 1.08 H (0.52-1.04) mg/dL Glucose 142 H (74-99) mg/dL POC Glucose (mg/dL) 134 H (70-110) mg/dL C-Reactive Protein 2.8 H (<1.0) mg/dL 04/03/23 04/03/2304/04/23 Range/Units 16:45 20:04 06:11 WBC (3.8-10.6) k/uL Hgb (11.4-16.0) gm/dL MCHC (31.0-37.0) g/dL Plt Count (150-450) k/uL Neutrophils # (1.3-7.7) k/uL Chloride (98-107) mmol/L BUN (7-17) mg/dL Creatinine (0.52-1.04) mg/dL Glucose (74-99) mg/dL POC Glucose (mg/dL) 165 H 174 H 115 H (70-110) mg/dL C-Reactive Protein (<1.0) mg/dL 04/04/23 04/04/23 Range/Units 07:53 07:53 WBC 12.6 H (3.8-10.6) k/uL Hgb 10.3 L (11.4-16.0) gm/dL MCHC 30.1 L (31.0-37.0) g/dL Plt Count (150-450) k/uL Neutrophils # (1.3-7.7) k/uL Chloride (98-107) mmol/L BUN 29 H (7-17) mg/dL Creatinine (0.52-1.04) mg/dL Glucose (74-99) mg/dL POC Glucose (mg/dL) (70-110) mg/dL C-Reactive Protein (<1.0) mg/dL Microbiology - Last 24 Hours (Table) 03/31/23 16:30 Blood Culture - Preliminary Blood 04/01/23 08:20 Blood Culture - Preliminary Blood - Imaging and Cardiology Chest x-ray: report reviewed, image reviewed Assessment and Plan Assessment: Sternal incision dehiscence with SUPERFICIAL infection, 03/27/23 and 03/28/23 culture positive for MSSA as well as anaerobic culture, 03/27/23 blood cultures positive for MSSA, 03/31 and 04/01 blood cultures preliminarily show no growth Leukocytosis Lactic acidosis, resolved History of coronary artery disease with left main disease status post 2 vessel CABG 03/02/23 History of moderate to severe mitral regurgitation status post mitral valve repair 03/02/2023 Postoperative hypotension and acute delirium, resolved Left lower extremity DVT on eliquis outpatient, last dose 03/25/23 am Cardiomyopathy/chronic systolic heart failure with decreased systolic functionand EF 35% Hypertriglyceridemia, TG 201 Asthma with multiple exacerbations and chronic steroids Severe restrictive lung disease, FEV1 42% of predicted Diabetes mellitus, A1c 6.9% Previous tobacco dependence GERD Osteoarthritis COVID-19 infection in September 2022 Plan: Dr. Astorga evaluated patient, no surgical intervention warranted at this time. Wet to dry dressing change daily and prn, shower daily. Antibiotics per infectious disease, on Unasyn and Flagyl at this time. WBC count trending down. Afebrile the last 24 hours. Continue home medications including eliquis, lasix decreased yesterday to 20 mg by mouth daily. Sternal precautions remain in place. Heart hugger in place. Incentive spirometry encouraged, 10 times every hour while awake. Increase activity as tolerated, PT/OT following. Monitor blood sugars closely, hyperglycemia contributes to infection especially since patient is on chronic steroids. Will monitor daily labs and CXR. Recommend discharge to home with home care with follow up in wound care center when able . More recommendations to follow based on patient's clinical course. Time with Patient: Greater than 30
[2023-04-04 11:38] LABS: Glucose,Whole Blood 116 mg/dL (70-110)
[2023-04-04] MEDS: MAG HYDROX/AL HYDROX/SIMETH 30 ML CUP PO PRN ×2 (11:40→15:57)
--- NOTE | 2023-04-04 15:03 | P.PN ---
Subjective Progress Note Date: 04/04/23 78-year-old female who presented to the emergency department with chest wall pain at her surgical site as she recently had mitral valve replacement with CABG approximately one month ago. Patient reports to having some opening of the incisional site and was seen at the cardiothoracic surgery office. Patient reports she did have chills the night before but did not check her temperature. Patient reports she was febrile in the emergency department. Patient follows with Dr. Pearson in the outpatient setting with a past medical history of asthma, coronary artery disease, diabetes mellitus, GERD, hyperlipidemia, Osteoarthritis, cardiomyopathy. Patient denies drug use or tobacco use and denies any alcohol use. Dr. Jackson of cardiothoracic surgery evaluated the patient requesting to be admitted to medicine service with them on consult. Wound care was also consulted. Patient was started on vancomycin and also being started on heparin IV. EKG showed sinus tachycardia, chest x-ray showed cardiomegaly without suspicious new acute pulmonary process. Chest CT was done showing sternotomy changes with fat stranding along the superficial and deep aspects of the sternum some of this may be secondary to healing changes and multiple foci of gas present in the superficial surgical bed just anterior to the sternum with superimposed infection and surgery was noted to be on 03/02/2023. No drainable fluid collection visualized at the superficial and deep portions however also reports CT is not great differential eating softer tissues and there is a trace right pleural effusion. Home medications have been reviewed and resumed and would recommend diabetes management with tight glycemic control and Accu-Cheks before meals and at bedtime Objective - Vital Signs Vital signs: Vital Signs Temp 98.1 F 04/04/23 08:37 Pulse 86 04/04/23 08:37 Resp 18 04/04/23 08:37 BP 108/56 04/04/23 08:37 Pulse Ox 95 04/04/23 08:37 FiO2 21 03/30/23 07:42 Intake & Output 04/03/23 04/04/23 04/04/23 18:59 06:59 18:59 Intake Total 358 Output Total 600 500 Balance -242 -500 Weight 71.5 kg Intake: Oral 358 Output: Urine 600 500 Other: Voiding Method Toilet Toilet Toilet - Exam GENERAL: The patient is alert and oriented x3, not in any acute distress. Well developed, well nourished. HEENT: Pupils are round and equally reacting to light. EOMI. No scleral icterus. No conjunctival pallor. Normocephalic, atraumatic. No pharyngeal erythema. No thyromegaly. CARDIOVASCULAR: S1 and S2 present. No murmurs, rubs, or gallops. Sternotomy surgical incision bandaged. no discharge. PULMONARY: Chest is clear to auscultation, no wheezing or crackles. Sternotomy incision seen ABDOMEN: Soft, nontender, nondistended, normoactive bowel sounds. No palpable organomegaly. MUSCULOSKELETAL: No joint swelling or deformity. EXTREMITIES: No cyanosis, clubbing, or pedal edema. NEUROLOGICAL: Gross neurological examination did not reveal any focal deficits. SKIN: No rashes. - Labs CBC & Chem 7: 04/04/23 07:53 04/04/23 07:53 Labs: Abnormal Lab Results - Last 24 Hours (Table) 04/03/23 04/03/23 04/04/23 Range/Units 16:45 20:04 06:11 WBC (3.8-10.6) k/uL Hgb (11.4-16.0) gm/dL MCHC (31.0-37.0) g/dL BUN (7-17) mg/dL POC Glucose (mg/dL) 165 H 174 H 115 H (70-110) mg/dL 04/04/23 04/04/23 04/04/23 Range/Units 07:53 07:53 11:37 WBC 12.6 H (3.8-10.6) k/uL Hgb 10.3 L (11.4-16.0) gm/dL MCHC 30.1 L (31.0-37.0) g/dL BUN 29 H (7-17) mg/dL POC Glucose (mg/dL) 116 H (70-110) mg/dL Microbiology - Last 24 Hours (Table) 04/01/23 08:20 Blood Culture - Preliminary Blood 03/31/23 16:30 Blood Culture - Preliminary Blood Assessment and Plan Assessment: Sepsis MSSA bacteremia Recent CABG on 03/02/2023 with sternal incision site dehiscence with infection Leukocytosis, secondary to above Lactic acidosis, present on admission secondary to above, improved History of moderate to severe mitral regurgitation with mitral valve repair during CABG on 03/02/2023 Recent readmission with left lower extremity pain, positive for DVT started on eliquis Cardiomyopathy History of congestive heart failure, systolic dysfunction with most recent EF being 35% Diabetes mellitus GERD History of asthma, not in exacerbation Former smoker Hyperlipidemia Plan; Monitor vital signs Monitor CBC Monitor CMP blood cultures positive for MSSA Continue wound care Continue IV cefazolin Continue Eliquis Follow-up in ID recs CT surgery following, no plan for any surgical debridement, recommend discharging with IV antibiotics and home care Time with Patient: Greater than 30
--- NOTE | 2023-04-04 15:03 | P.PN ---
Subjective Progress Note Date: 04/03/23 78-year-old female who presented to the emergency department with chest wall pain at her surgical site as she recently had mitral valve replacement with CABG approximately one month ago. Patient reports to having some opening of the incisional site and was seen at the cardiothoracic surgery office. Patient reports she did have chills the night before but did not check her temperature. Patient reports she was febrile in the emergency department. Patient follows with Dr. Pearson in the outpatient setting with a past medical history of asthma, coronary artery disease, diabetes mellitus, GERD, hyperlipidemia, Osteoarthritis, cardiomyopathy. Patient denies drug use or tobacco use and denies any alcohol use. Dr. Jackson of cardiothoracic surgery evaluated the patient requesting to be admitted to medicine service with them on consult. Wound care was also consulted. Patient was started on vancomycin and also being started on heparin IV. EKG showed sinus tachycardia, chest x-ray showed cardiomegaly without suspicious new acute pulmonary process. Chest CT was done showing sternotomy changes with fat stranding along the superficial and deep aspects of the sternum some of this may be secondary to healing changes and multiple foci of gas present in the superficial surgical bed just anterior to the sternum with superimposed infection and surgery was noted to be on 03/02/2023. No drainable fluid collection visualized at the superficial and deep portions however also reports CT is not great differential eating softer tissues and there is a trace right pleural effusion. Home medications have been reviewed and resumed and would recommend diabetes management with tight glycemic control and Accu-Cheks before meals and at bedtime Objective - Vital Signs Vital signs: Vital Signs Temp 98.1 F 04/03/23 08:53 Pulse 100 04/03/23 08:53 Resp 18 04/03/23 08:53 BP 128/58 04/03/23 08:53 Pulse Ox 99 04/03/23 08:53 FiO2 21 03/30/23 07:42 Intake & Output 04/02/23 04/03/23 04/03/23 18:59 06:59 18:59 Intake Total 240 240 Output Total 400 0 400 Balance -160 0 -160 Intake: Oral 240 240 Output: Urine 400 400 Stool 0 0 Urine/Stool Mix 0 Emesis 0 Oral Regurgitation 0 Other 0 Other: Voiding Method Toilet Toilet Toilet # Voids 0 0 # Bowel Movements 0 - Exam GENERAL: The patient is alert and oriented x3, not in any acute distress. Well developed, well nourished. HEENT: Pupils are round and equally reacting to light. EOMI. No scleral icterus. No conjunctival pallor. Normocephalic, atraumatic. No pharyngeal erythema. No thyromegaly. CARDIOVASCULAR: S1 and S2 present. No murmurs, rubs, or gallops. Sternotomy surgical incision bandaged. no discharge. PULMONARY: Chest is clear to auscultation, no wheezing or crackles. Sternotomy incision seen ABDOMEN: Soft, nontender, nondistended, normoactive bowel sounds. No palpable organomegaly. MUSCULOSKELETAL: No joint swelling or deformity. EXTREMITIES: No cyanosis, clubbing, or pedal edema. NEUROLOGICAL: Gross neurological examination did not reveal any focal deficits. SKIN: No rashes. - Labs CBC & Chem 7: 04/04/23 07:53 04/04/23 07:53 Labs: Abnormal Lab Results - Last 24 Hours (Table) 04/02/23 04/02/23 04/03/23 Range/Units 16:33 19:58 09:33 WBC 13.5 H (3.8-10.6) k/uL Hgb 10.5 L (11.4-16.0) gm/dL MCHC 29.7 L (31.0-37.0) g/dL Plt Count 540 H (150-450) k/uL Neutrophils # 8.6 H (1.3-7.7) k/uL Chloride (98-107) mmol/L BUN (7-17) mg/dL Creatinine (0.52-1.04) mg/dL Glucose (74-99) mg/dL POC Glucose (mg/dL) 133 H 152 H (70-110) mg/dL C-Reactive Protein (<1.0) mg/dL 04/03/23 Range/Units 09:33 WBC (3.8-10.6) k/uL Hgb (11.4-16.0) gm/dL MCHC (31.0-37.0) g/dL Plt Count (150-450) k/uL Neutrophils # (1.3-7.7) k/uL Chloride 95 L (98-107) mmol/L BUN 28 H (7-17) mg/dL Creatinine 1.08 H (0.52-1.04) mg/dL Glucose 142 H (74-99) mg/dL POC Glucose (mg/dL) (70-110) mg/dL C-Reactive Protein 2.8 H (<1.0) mg/dL Microbiology - Last 24 Hours (Table) 03/31/23 16:30 Blood Culture - Preliminary Blood 04/01/23 08:20 Blood Culture - Preliminary Blood 03/27/23 18:06 Anaerobic Culture - Final Chest Anaerobic Gram Positive Cocci 03/28/23 10:48 Anaerobic Culture - Final Chest Assessment and Plan Assessment: Sepsis MSSA bacteremia Recent CABG on 03/02/2023 with sternal incision site dehiscence with infection Leukocytosis, secondary to above Lactic acidosis, present on admission secondary to above, improved History of moderate to severe mitral regurgitation with mitral valve repair during CABG on 03/02/2023 Recent readmission with left lower extremity pain, positive for DVT started on eliquis Cardiomyopathy History of congestive heart failure, systolic dysfunction with most recent EF being 35% Diabetes mellitus GERD History of asthma, not in exacerbation Former smoker Hyperlipidemia Plan; Monitor vital signs Monitor CBC Monitor CMP blood cultures positive for MSSA Continue wound care Continue IV cefazolin Continue Eliquis Follow-up in ID recs CT surgery following, no plan for any surgical debridement, recommend discharging with IV antibiotics and home care
[2023-04-04 16:47] LABS: Glucose,Whole Blood 103 mg/dL (70-110)
[2023-04-04 20:06] LABS: Glucose,Whole Blood 180 mg/dL (70-110)
[2023-04-04] MEDS: LATANOPROST 0.005% OPHTH DROPS 2.5 ML BTL BOTH EYES SCH (20:18)
[2023-04-04] MEDS: ALBUTEROL INHALATION PRN (20:24)
--- NOTE | 2023-04-04 21:50 | P.PN ---
Subjective Progress Note Date: 04/04/23 Principal diagnosis: Sternal wound infection Patient is a 78-year-old -Malag[place] female with a past medical history significant for coronary artery disease in this patient with status post two- vessel coronary bypass grafting and mitral valve repair on 03/02/2023 , presented to hospital with fever lower sternal wound dehiscence with purulent drainage and abnormal CT. On today's evaluation that is 04/04/2023, the patient continues to be afebrile the patient is breathing comfortably on room air , the patient pain to the lower sternal wound/incision has decreased in intensity , and no further drainage has been reported, patient did have some improvement in her symptoms of nausea and reflux, the patient denies abdominal pain no diarrhea Objective - Vital Signs Vital signs: Vital Signs Temp 98.6 F 04/04/23 12:00 Pulse 102 H 04/04/23 12:00 Resp 17 04/04/23 12:00 BP 144/62 04/04/23 12:00 Pulse Ox 100 04/04/23 12:00 FiO2 21 03/30/23 07:42 Intake & Output 04/03/23 04/04/23 04/04/23 18:59 06:59 18:59 Intake Total 358 Output Total 600 500 Balance -242 -500 Weight 71.5 kg Intake: Oral 358 Output: Urine 600 500 Other: Voiding Method Toilet Toilet Toilet # Voids 1 - Exam GENERAL DESCRIPTION: An elderly female lying in bed in no distress RESPIRATORY SYSTEM: Unlabored breathing , decreased breath sounds at bases HEART: S1 S2 regular rate and rhythm , lower sternal wound base with no slough tissue no further drainage was noticed today ABDOMEN: Soft , no tenderness EXTREMITIES: No edema feet - Labs CBC & Chem 7: 04/04/23 07:53 04/04/23 07:53 Labs: Abnormal Lab Results - Last 24 Hours (Table) 04/03/23 04/03/23 04/04/23 Range/Units 16:45 20:04 06:11 WBC (3.8-10.6) k/uL Hgb (11.4-16.0) gm/dL MCHC (31.0-37.0) g/dL BUN (7-17) mg/dL POC Glucose (mg/dL) 165 H 174 H 115 H (70-110) mg/dL 04/04/23 04/04/23 04/04/23 Range/Units 07:53 07:53 11:37 WBC 12.6 H (3.8-10.6) k/uL Hgb 10.3 L (11.4-16.0) gm/dL MCHC 30.1 L (31.0-37.0) g/dL BUN 29 H (7-17) mg/dL POC Glucose (mg/dL) 116 H (70-110) mg/dL Microbiology - Last 24 Hours (Table) 04/01/23 08:20 Blood Culture - Preliminary Blood 03/31/23 16:30 Blood Culture - Preliminary Blood Assessment and Plan (1) Sepsis Current Visit: Yes Status: Acute Code(s): A41.9 - SEPSIS, UNSPECIFIED ORGANISM SNOMED Code(s): 50607523 (2) Surgical wound dehiscence Current Visit: No Status: Acute Code(s): T81.31XA - DISRUPTION OF EXTERNAL OPERATION (SURGICAL) WOUND, NEC, INIT SNOMED Code(s): 22745115 Plan: Patient presented to hospital with sepsis in this patient with a fever tachycardia elevated white count source being sternal wound infection with dehiscence of the lower end of the incision patient did have abnormal CT with multiple foci of air and now with evidence for significant purulent drainage on examination patient has been reevaluated by CT surgery did not recommend any surgical debridement 2Local cultures have been finalized with MSSA, patient did have elevated inflammatory markers, blood cultures obtained, with positive with Staphylococcus aureus likely MSSA 3blood cultures has been repeated on 03/31/2023 and 04/01/2023 so far negative, patient white count is trended down to 12,000 today. The patient was Continue patient on cefazolin and Flagyl,PICC been ordered for outpatient antibiotic therapy
[2023-04-05 05:57] LABS: Glucose,Whole Blood 147 mg/dL (70-110)
[2023-04-05] MEDS: INSULIN ASPART (NovoLOG) 100 UNIT/ML VIAL SQ SCH ×4 (06:01→20:22)
[2023-04-05] MEDS: PANTOPRAZOLE 40 MG TABLET PO SCH (06:11)
[2023-04-05] MEDS: MULTIVITAMINS, THERA 1 EACH TAB PO SCH (08:44)
[2023-04-05] MEDS: metroNIDAZOLE-NS PMX 500 MG in SALINE 1 100ML.BAG IVPB SCH ×2 (08:44→15:26)
[2023-04-05] MEDS: SPIRONOLACTONE 25 MG TAB PO SCH (08:44)
[2023-04-05] MEDS: ASPIRIN 81 MG PO SCH (08:44)
[2023-04-05] MEDS: predniSONE 10 MG TAB PO SCH (08:44)
[2023-04-05] MEDS: METOPROLOL TARTRATE 50 MG TAB PO SCH ×2 (08:44→20:21)
[2023-04-05] MEDS: ATORVASTATIN 10 MG TAB PO SCH (08:44)
[2023-04-05] MEDS: FUROSEMIDE 20 MG TAB PO SCH (08:44)
[2023-04-05] MEDS: TROSPIUM CHLORIDE 20 MG TABLET PO SCH ×2 (08:44→20:21)
[2023-04-05] MEDS: MAG HYDROX/AL HYDROX/SIMETH 30 ML CUP PO PRN ×2 (08:44→15:26)
[2023-04-05] MEDS: APIXABAN 5 MG TAB PO SCH ×2 (08:45→20:20)
[2023-04-05] MEDS: ASCORBIC ACID 500 MG TAB PO SCH (08:45)
[2023-04-05] MEDS: metFORMIN 500 MG TAB PO SCH ×2 (08:45→20:21)
[2023-04-05] MEDS: SENNOSIDES-DOCUSATE SODIUM 1 EACH TAB PO PRN (08:50)
[2023-04-05] MEDS: ALBUTEROL INHALATION PRN ×2 (09:32→21:37)
--- NOTE | 2023-04-05 09:32 | P.PN ---
Subjective Progress Note Date: 04/05/23 Principal diagnosis: Sternal incision dehiscence with superficial infection, leukocytosis, lactic acidosis. Past medical history significant for coronary artery disease with left main disease and moderate to severe mitral regurgitation status post 2 vessel CABG and mitral valve repair 03/02/23, left lower extremity DVT on eliquis outpatient, cardiomyopathy/chronic systolic heart failure with decreased systolic functionand EF 35%, hypertriglyceridemia, asthma with multiple exa cerbations and chronic steroids, severe restrictive lung disease, diabetes mellitus, previous tobacco dependence, GERD, osteoarthritis, COVID-19 infection in September 2022 The patient was seen and examined at her bedside today 04/05/2023 on the cardiac stepdown unit. Currently she is sitting up to bedside chair, is awake, alert, oriented 3 and is in no acute apparent distress. Denies any complaints of pain or shortness of breath at this time. She also reports that her indigestion is much improved yesterday since taking the Maalox. Oxygen saturations are 99% on room air and she is achieving 1000 mL on her incentive spirometry encouragement. Remote telemetry showing normal sinus rhythm heart rate 86 BPM. Her T-max temperature in the last 24 hours is 98.6F. Wound cultures 03/27/23 and 03/28/23 as well as anaerobic culture finalized as MSSA, in addition blood cultures from 03/28/23 growing MSSA, blood cultures from 03/31 and 04/01 preliminarily with no growth. Continues on Kefzol IVPB and Flagyl IV piggyback per infectious disease for antibiotic coverage. Objective - Vital Signs Vital signs: Vital Signs Temp 97.6 F 04/05/23 08:00 Pulse 90 04/05/23 08:00 Resp 16 04/05/23 08:00 BP 105/58 04/05/23 08:00 Pulse Ox 94 L 04/05/23 08:00 FiO2 21 04/04/23 20:24 Intake & Output 04/04/23 04/05/23 04/05/23 18:59 06:59 18:59 Output Total 450 300 Balance -450 -300 Weight 71.8 kg Output: Urine 450 300 Other: Voiding Method Toilet Toilet # Voids 1 - Exam CONSTITUTIONAL: Appears comfortable, cooperative, no acute distress. RESPIRATORY: Lungs sounds diminished bilaterally. Respirations are symmetrical, nonlabored. Currently on room air with oxygen saturation 99%. Able to achieve 1000 mL on incentive spirometry. Strong nonproductive cough. CARDIOVASCULAR: S1, S2 present. Regular rate and rhythm, sinus rhythm on telemetry. Sternum stable. Palpable peripheral pulses bilaterally. No edema present. No calf pain or tenderness noted. Heart hugger in place with patient demonstrating appropriate use. Antiembolism stockings, SCDs present. GASTROINTESTINAL: Abdomen soft, nontender, nondistended. Active bowel sounds present 4 quadrants. Tolerating diet. GENITOURINARY: Continues to void although sometimes incontinent. INTEGUMENTARY: Skin is warm and dry. No clubbing or cyanosis is present. Midline sternal chest incision dehisced, granulation tissue present, some scant purulent drainage although less every day. Left lower extremity EVH site well approximated without redness or drainage. NEUROLOGIC: Cranial nerves II through XII intact. MUSKULOSKELETAL: Able to move all extremities, strength equal bilaterally. PSYCHIATRIC: Alert and oriented to person place and time, appropriate affect, intact judgment and insight. - Allied health notes Allied health notes reviewed: nursing - Labs CBC & Chem 7: 04/04/23 07:53 04/04/23 07:53 Labs: Abnormal Lab Results - Last 24 Hours (Table) 04/04/23 04/04/23 04/05/23 Range/Units 11:37 20:05 05:52 POC Glucose (mg/dL) 116 H 180 H 147 H (70-110) mg/dL Microbiology - Last 24 Hours (Table) 04/01/23 08:20 Blood Culture - Preliminary Blood 03/31/23 16:30 Blood Culture - Preliminary Blood - Imaging and Cardiology Chest x-ray: report reviewed, image reviewed Assessment and Plan Assessment: Sternal incision dehiscence with SUPERFICIAL infection, 03/27/23 and 03/28/23 culture positive for MSSA as well as anaerobic culture, 03/27/23 blood cultures positive for MSSA, 03/31 and 04/01 blood cultures preliminarily show no growth Leukocytosis Lactic acidosis, resolved History of coronary artery disease with left main disease status post 2 vessel CABG 03/02/23 History of moderate to severe mitral regurgitation status post mitral valve repair 03/02/2023 Postoperative hypotension and acute delirium, resolved Left lower extremity DVT on eliquis outpatient, last dose 03/25/23 am Cardiomyopathy/chronic systolic heart failure with decreased systolic functionand EF 35% Hypertriglyceridemia, TG 201 Asthma with multiple exacerbations and chronic steroids Severe restrictive lung disease, FEV1 42% of predicted Diabetes mellitus, A1c 6.9% Previous tobacco dependence GERD Osteoarthritis COVID-19 infection in September 2022 Plan: Dr. Bernal evaluated patient, no surgical intervention warranted at this time. Continue Wet to dry dressing change daily and prn, shower daily. Antibiotics per infectious disease, on Kefzol and Flagyl at this time. WBC count trending down. Afebrile the last 24 hours. Continue home medications including eliquis, lasix decreased yesterday to 20 mg by mouth daily. Sternal precautions remain in place. Heart hugger in place. Incentive spirometry encouraged, 10 times every hour while awake. Increase activity as tolerated, PT/OT following. Monitor blood sugars closely, hyperglycemia contributes to infection especially since patient is on chronic steroids. Will monitor daily labs and CXR. Recommend discharge to home with home care with follow up in wound care center when able . More recommendations to follow based on patient's clinical course. Time with Patient: Greater than 30
[2023-04-05 09:55] LABS: Basophils # (A) 0.1 k/uL (0-0.2); Basophils % (A) 0 %; Eosinophils # (A) 0.2 k/uL (0-0.7); Eosinophils % (A) 1 %; HCT 33.6 % (34.0-46.0); HGB 9.9 gm/dL (11.4-16.0); Hypochromasia Marked; Lymphocytes % (A) 24 %; MCH 25.4 pg (25.0-35.0); MCHC 29.4 g/dL (31.0-37.0); MCV 86.5 fL (80.0-100.0); Mean Platelet Volume 7.2; Monocytes # (A) 0.6 k/uL (0-1.0); Monocytes % (A) 5 %; Neutrophils # (A) 8.5 k/uL (1.3-7.7); Neutrophils % (A) 67 %; Platelet Count 389 k/uL (150-450); Poikilocytosis Slight; RBC 3.88 m/uL (3.80-5.40); RDW 15.5 % (11.5-15.5); WBC 12.7 k/uL (3.8-10.6)
[2023-04-05 10:11] LABS: Calcium 9.5 mg/dL (8.4-10.2); Potassium 4.2 mmol/L (3.5-5.1)
--- NOTE | 2023-04-05 10:39 | XR ---
EXAMINATION TYPE: XR chest 1V portable DATE OF EXAM: 04/05/2023 COMPARISON: 04/04/2023 INDICATION: Postop cardiac surgery TECHNIQUE: Single frontal view of the chest is obtained. FINDINGS: The heart size is normal. The pulmonary vasculature is normal. The lungs are clear. There is some scoliosis of the thoracolumbar spine with convexity to the right. Sternotomy wires are present from prior CABG. IMPRESSION: 1. No acute pulmonary process.
[2023-04-05] MEDS: LOSARTAN 50 MG TAB PO SCH (11:33)
[2023-04-05 11:43] LABS: Glucose,Whole Blood 121 mg/dL (70-110)
--- NOTE | 2023-04-05 15:02 | P.PN ---
Subjective Progress Note Date: 04/05/23 Principal diagnosis: Sternal wound infection Patient is a 78-year-old -French female with a past medical history significant for coronary artery disease in this patient with status post two- vessel coronary bypass grafting and mitral valve repair on 03/02/2023 , presented to hospital with fever lower sternal wound dehiscence with purulent drainage and abnormal CT. On today's evaluation that is 04/05/2023, the patient remains to be afebrile the patient is breathing comfortably on room air , the patient pain to the lower sternal wound/incision has improved , the patient denies having any chest pain shortness of breath or cough some reflux and nausea no vomiting seemed to improve with the Maalox and no diarrhea Objective - Vital Signs Vital signs: Vital Signs Temp 97.7 F 04/05/23 12:00 Pulse 86 04/05/23 12:00 Resp 16 04/05/23 12:00 BP 121/70 04/05/23 12:00 Pulse Ox 98 04/05/23 12:00 FiO2 21 04/04/23 20:24 Intake & Output 04/04/23 04/05/23 04/05/23 18:59 06:59 18:59 Output Total 450 300 Balance -450 -300 Weight 71.8 kg Output: Urine 450 300 Other: Voiding Method Toilet Toilet Toilet # Voids 1 - Exam GENERAL DESCRIPTION: An elderly female lying in bed in no distress RESPIRATORY SYSTEM: Unlabored breathing , decreased breath sounds at bases HEART: S1 S2 regular rate and rhythm , lower sternal wound currently dressed no drainage on the dressing ABDOMEN: Soft , no tenderness EXTREMITIES: No edema feet - Labs CBC & Chem 7: 04/05/23 08:32 04/05/23 08:32 Labs: Abnormal Lab Results - Last 24 Hours (Table) 04/04/23 04/05/23 04/05/23 Range/Units 20:05 05:52 08:32 WBC 12.7 H (3.8-10.6) k/uL Hgb 9.9 L (11.4-16.0) gm/dL Hct 33.6 L (34.0-46.0) % MCHC 29.4 L (31.0-37.0) g/dL Neutrophils # 8.5 H (1.3-7.7) k/uL BUN (7-17) mg/dL Glucose (74-99) mg/dL POC Glucose (mg/dL) 180 H 147 H (70-110) mg/dL 04/05/23 04/05/23 Range/Units 08:32 11:41 WBC (3.8-10.6) k/uL Hgb (11.4-16.0) gm/dL Hct (34.0-46.0) % MCHC (31.0-37.0) g/dL Neutrophils # (1.3-7.7) k/uL BUN 23 H (7-17) mg/dL Glucose 136 H (74-99) mg/dL POC Glucose (mg/dL) 121 H (70-110) mg/dL Microbiology - Last 24 Hours (Table) 04/01/23 08:20 Blood Culture - Preliminary Blood 03/31/23 16:30 Blood Culture - Preliminary Blood Assessment and Plan (1) Sepsis Current Visit: Yes Status: Acute Code(s): A41.9 - SEPSIS, UNSPECIFIED ORGANISM SNOMED Code(s): 57990077 (2) Surgical wound dehiscence Current Visit: No Status: Acute Code(s): T81.31XA - DISRUPTION OF EXTERNAL OPERATION (SURGICAL) WOUND, NEC, INIT SNOMED Code(s): 86805129 Plan: Patient presented to hospital with sepsis in this patient with a fever tachyc ardia elevated white count source being sternal wound infection with dehiscence of the lower end of the incision patient did have abnormal CT with multiple foci of air and now with evidence for significant purulent drainage on examination patient has been reevaluated by CT surgery did not recommend any surgical debridement 2Local cultures have been finalized with MSSA, patient did have elevated i nflammatory markers, blood cultures obtained, with positive with Staphylococcus aureus likely MSSA 3blood cultures has been repeated on 03/31/2023 and 04/01/2023 so far negative, patient white count is 12.7 today about the same as yesterday. The patient will Continue on cefazolin and Flagyl,PICC been ordered for outpatient antibiotic therapy Son at the bedside questions were answered Time with Patient: Less than 30
[2023-04-05] MEDS ORDERED: MAGNESIUM HYDROXIDE 2,400 MG/10 ML CUP PO PRN (15:37)
[2023-04-05] MEDS ORDERED: NA PHOS,M-B/NA PHOS,DI-BA 133 ML ENEMA RECTAL PRN (15:38)
--- NOTE | 2023-04-05 16:26 | P.PN ---
Subjective Progress Note Date: 04/05/23 78-year-old female who presented to the emergency department with chest wall pain at her surgical site as she recently had mitral valve replacement with CABG approximately one month ago. Patient reports to having some opening of the incisional site and was seen at the cardiothoracic surgery office. Patient reports she did have chills the night before but did not check her temperature. Patient reports she was febrile in the emergency department. Patient follows with Dr. Pearson in the outpatient setting with a past medical history of asthma, coronary artery disease, diabetes mellitus, GERD, hyperlipidemia, Osteoarthritis, cardiomyopathy. Patient denies drug use or tobacco use and denies any alcohol use. Dr. Jackson of cardiothoracic surgery evaluated the patient requesting to be admitted to medicine service with them on consult. Wound care was also consulted. Patient was started on vancomycin and also being started on heparin IV. EKG showed sinus tachycardia, chest x-ray showed cardiomegaly without suspicious new acute pulmonary process. Chest CT was done showing sternotomy changes with fat stranding along the superficial and deep aspects of the sternum some of this may be secondary to healing changes and multiple foci of gas present in the superficial surgical bed just anterior to the sternum with superimposed infection and surgery was noted to be on 03/02/2023. No drainable fluid collection visualized at the superficial and deep portions however also reports CT is not great differential eating softer tissues and there is a trace right pleural effusion. Home medications have been reviewed and resumed and would recommend diabetes management with tight glycemic control and Accu-Cheks before meals and at bedtime 04/05/2023 the patient remains afebrile the patient is breathing comfortably on room air , the patient pain to the lower sternal wound/incision has improved , the patient denies having any chest pain shortness of breath or cough some reflux and nausea no vomiting seemed to improve with the Maalox and no diarrhea --Patient presented to hospital with sepsis in this patient with a fever tachycardia elevated white count source being sternal wound infection with dehiscence of the lower end of the incision patient did have abnormal CT with multiple foci of air and now with evidence for significant purulent drainage on examination patient has been reevaluated by CT surgery did not recommend any surgical debridement --Local cultures have been finalized with MSSA, patient did have elevated inflammatory markers, blood cultures obtained, with positive with Staphylococcus aureus likely MSSA --blood cultures has been repeated on 03/31/2023 and 04/01/2023 so far negative, patient white count is 12.7 today about the same as yesterday. The patient will Continue on cefazolin and Flagyl,PICC been ordered for outpatient antibiotic therapy Objective - Vital Signs Vital signs: Vital Signs Temp 97.7 F 04/05/23 12:00 Pulse 86 04/05/23 12:00 Resp 16 04/05/23 12:00 BP 121/70 04/05/23 12:00 Pulse Ox 98 04/05/23 12:00 FiO2 21 04/04/23 20:24 Intake & Output 04/04/23 04/05/23 04/05/23 18:59 06:59 18:59 Output Total 450 300 Balance -450 -300 Weight 71.8 kg Output: Urine 450 300 Other: Voiding Method Toilet Toilet Toilet # Voids 1 - Exam GENERAL: The patient is alert and oriented x3, not in any acute distress. Well developed, well nourished. HEENT: Pupils are round and equally reacting to light. EOMI. No scleral icterus. No conjunctival pallor. Normocephalic, atraumatic. No pharyngeal erythema. No thyromegaly. CARDIOVASCULAR: S1 and S2 present. No murmurs, rubs, or gallops. Sternotomy surgical incision bandaged. no discharge. PULMONARY: Chest is clear to auscultation, no wheezing or crackles. Sternotomy incision seen ABDOMEN: Soft, nontender, nondistended, normoactive bowel sounds. No palpable organomegaly. MUSCULOSKELETAL: No joint swelling or deformity. EXTREMITIES: No cyanosis, clubbing, or pedal edema. NEUROLOGICAL: Gross neurological examination did not reveal any focal deficits. SKIN: No rashes. - Labs CBC & Chem 7: 04/05/23 08:32 04/05/23 08:32 Labs: Abnormal Lab Results - Last 24 Hours (Table) 04/04/23 04/05/23 04/05/23 Range/Units 20:05 05:52 08:32 WBC 12.7 H (3.8-10.6) k/uL Hgb 9.9 L (11.4-16.0) gm/dL Hct 33.6 L (34.0-46.0) % MCHC 29.4 L (31.0-37.0) g/dL Neutrophils # 8.5 H (1.3-7.7) k/uL BUN (7-17) mg/dL Glucose (74-99) mg/dL POC Glucose (mg/dL) 180 H 147 H (70-110) mg/dL 04/05/23 04/05/23 Range/Units 08:32 11:41 WBC (3.8-10.6) k/uL Hgb (11.4-16.0) gm/dL Hct (34.0-46.0) % MCHC (31.0-37.0) g/dL Neutrophils # (1.3-7.7) k/uL BUN 23 H (7-17) mg/dL Glucose 136 H (74-99) mg/dL POC Glucose (mg/dL) 121 H (70-110) mg/dL Microbiology - Last 24 Hours (Table) 04/01/23 08:20 Blood Culture - Preliminary Blood 03/31/23 16:30 Blood Culture - Preliminary Blood Assessment and Plan Assessment: Sepsis MSSA bacteremia Recent CABG on 03/02/2023 with sternal incision site dehiscence with infection Leukocytosis, secondary to above Lactic acidosis, present on admission secondary to above, improved History of moderate to severe mitral regurgitation with mitral valve repair during CABG on 03/02/2023 Recent readmission with left lower extremity pain, positive for DVT started on eliquis Cardiomyopathy History of congestive heart failure, systolic dysfunction with most recent EF being 35% Diabetes mellitus GERD History of asthma, not in exacerbation Former smoker Hyperlipidemia Plan; Monitor vital signs Monitor CBC Monitor CMP blood cultures positive for MSSA Continue wound care Continue IV cefazolin Continue Eliquis Follow-up in ID recs CT surgery following, no plan for any surgical debridement, recommend discharging with IV antibiotics and home care
[2023-04-05 16:27] LABS: Glucose,Whole Blood 217 mg/dL (70-110)
[2023-04-05 19:59] LABS: Glucose,Whole Blood 235 mg/dL (70-110)
[2023-04-05] MEDS: LATANOPROST 0.005% OPHTH DROPS 2.5 ML BTL BOTH EYES SCH (20:22)
[2023-04-06] MEDS: metroNIDAZOLE-NS PMX 500 MG in SALINE 1 100ML.BAG IVPB SCH ×4 (00:01→23:30)
[2023-04-06 05:56] LABS: Glucose,Whole Blood 89 mg/dL (70-110)
[2023-04-06] MEDS: INSULIN ASPART (NovoLOG) 100 UNIT/ML VIAL SQ SCH ×4 (06:00→21:00)
[2023-04-06] MEDS: PANTOPRAZOLE 40 MG TABLET PO SCH (06:20)
[2023-04-06 07:06] LABS: Basophils # (A) 0.1 k/uL (0-0.2); Basophils % (A) 0 %; Eosinophils # (A) 0.2 k/uL (0-0.7); Eosinophils % (A) 1 %; HCT 35.9 % (34.0-46.0); HGB 10.5 gm/dL (11.4-16.0); Hypochromasia Marked; Lymphocytes # (A) 3.6 k/uL (1.0-4.8); Lymphocytes % (A) 21 %; MCH 25.4 pg (25.0-35.0); MCHC 29.2 g/dL (31.0-37.0); MCV 87.1 fL (80.0-100.0); Mean Platelet Volume 7.2; Monocytes # (A) 0.6 k/uL (0-1.0); Monocytes % (A) 3 %; Neutrophils # (A) 12.7 k/uL (1.3-7.7); Neutrophils % (A) 73 %; Platelet Count 428 k/uL (150-450); Poikilocytosis Slight; RBC 4.12 m/uL (3.80-5.40); RDW 15.5 % (11.5-15.5); WBC 17.5 k/uL (3.8-10.6)
[2023-04-06 07:33] LABS: African American GFR (CKD) >90 (>60 ml/min/1.73 sqM); Anion Gap 11 mmol/L; Blood Urea Nitrogen 18 mg/dL (7-17); Calcium 9.6 mg/dL (8.4-10.2); Carbon Dioxide 26 mmol/L (22-30); Chloride 104 mmol/L (98-107); Glucose 81 mg/dL (74-99); Non-African American GFR(CKD) 83 (>60 ml/min/1.73 sqM); Sodium 141 mmol/L (137-145)
[2023-04-06 08:03] LABS: Potassium 4.1 mmol/L (3.5-5.1)
[2023-04-06] MEDS: ALBUTEROL INHALATION PRN ×4 (08:43→21:11)
[2023-04-06] MEDS ORDERED: bisacodyL 10 MG SUPP RECTAL STA (08:46)
[2023-04-06] MEDS: SPIRONOLACTONE 25 MG TAB PO SCH (08:47)
[2023-04-06] MEDS: ASPIRIN 81 MG PO SCH (08:47)
[2023-04-06] MEDS: APIXABAN 5 MG TAB PO SCH ×2 (08:47→20:36)
[2023-04-06] MEDS: TROSPIUM CHLORIDE 20 MG TABLET PO SCH ×2 (08:47→21:00)
[2023-04-06] MEDS: FUROSEMIDE 20 MG TAB PO SCH (08:47)
[2023-04-06] MEDS: MAG HYDROX/AL HYDROX/SIMETH 30 ML CUP PO PRN (08:47)
[2023-04-06] MEDS: metFORMIN 500 MG TAB PO SCH ×2 (08:47→20:36)
[2023-04-06] MEDS: ATORVASTATIN 10 MG TAB PO SCH (08:47)
[2023-04-06] MEDS: predniSONE 10 MG TAB PO SCH (08:47)
[2023-04-06] MEDS: ASCORBIC ACID 500 MG TAB PO SCH (08:47)
[2023-04-06] MEDS: METOPROLOL TARTRATE 50 MG TAB PO SCH ×2 (08:47→20:36)
[2023-04-06] MEDS: MULTIVITAMINS, THERA 1 EACH TAB PO SCH (08:47)
[2023-04-06] MEDS: LOSARTAN 50 MG TAB PO SCH ×2 (08:47→10:54)
[2023-04-06] MEDS ORDERED: LIDOCAINE 1% INJ 10MG/ML (5 ML VIAL-PF) SQ ONE (09:23)
--- NOTE | 2023-04-06 09:46 | P.PN ---
Subjective Progress Note Date: 04/06/23 Principal diagnosis: Sternal incision dehiscence with superficial infection, leukocytosis, lactic acidosis. Past medical history significant for coronary artery disease with left main disease and moderate to severe mitral regurgitation status post 2 vessel CABG and mitral valve repair 03/02/23, left lower extremity DVT on eliquis outpatient, cardiomyopathy/chronic systolic heart failure with decreased systolic functionand EF 35%, hypertriglyceridemia, asthma with multiple exa cerbations and chronic steroids, severe restrictive lung disease, diabetes mellitus, previous tobacco dependence, GERD, osteoarthritis, COVID-19 infection in September 2022 The patient was seen and examined in follow-up today 04/06/2023 at her bedside on the cardiac stepdown unit. Patient is sitting up to the bedside chair, is awake, alert, oriented 3 and is in no acute distress. She reports that she has been having episodes of nausea and is complaining of constipation but denies any complaints of shortness of breath or pain at this time. Oxygen saturation are 100% on room air and she is achieving 1000 mL on her incentive spirometry with encouragement. Remote telemetry showing normal sinus rhythm heart rate 91 BPM. According to the patient she is scheduled for a PICC line placement today by interventional radiology. Her T-max temperature in the last 24 hours is 97.9F. Wound cultures 03/27/23 and 03/28/23 as well as anaerobic culture finalized as MSSA, in addition blood cultures from 03/28/23, and 03/31/2023 growing MSSA, blood cultures from 04/01 with no growth after 96 hours. Continues on Kefzol IVPB and Flagyl IV piggyback per infectious disease for antibiotic coverage. According to the patient's nurse today the patient has been refusing wet-to-dry dressings to her distal sternal wound dehiscence. Objective - Vital Signs Vital signs: Vital Signs Temp 98.2 F 04/06/23 08:44 Pulse 98 04/06/23 08:44 Resp 16 04/06/23 08:44 BP 102/55 04/06/23 08:44 Pulse Ox 99 04/06/23 08:44 FiO2 21 04/05/23 21:37 Intake & Output 04/05/23 04/06/23 04/06/23 18:59 06:59 18:59 Output Total 0 Balance 0 Weight 72.5 kg Output: Stool 0 Other: Voiding Method Toilet Toilet # Voids 1 1 # Bowel Movements 1 - Exam CONSTITUTIONAL: Appears comfortable, cooperative, no acute distress. RESPIRATORY: Lungs sounds diminished bilaterally. Respirations are symmetrical, nonlabored. Currently on room air with oxygen saturation 100%. Able to achieve 1000 mL on incentive spirometry. Strong nonproductive cough. CARDIOVASCULAR: S1, S2 present. Regular rate and rhythm, sinus rhythm on telemetry. Sternum stable. Palpable peripheral pulses bilaterally. No edema present. No calf pain or tenderness noted. Heart hugger in place with patient demonstrating appropriate use. Antiembolism stockings, SCDs present. GASTROINTESTINAL: Abdomen soft, nontender, nondistended. Active bowel sounds present 4 quadrants. Tolerating diet. Small bowel movement this a.m. GENITOURINARY: Continues to void although sometimes having episodes of incontinence. INTEGUMENTARY: Skin is warm and dry. No clubbing or cyanosis is present. Midline sternal chest incision dehisced, granulation tissue present, some scant serosanguineous drainage although. Left lower extremity EVH site well approximated without redness or drainage. NEUROLOGIC: Cranial nerves II through XII intact. No focal deficits. MUSKULOSKELETAL: Able to move all extremities, strength equal bilaterally. PSYCHIATRIC: Alert and oriented to person place and time, appropriate affect, intact judgment and insight. - Allied health notes Allied health notes reviewed: nursing - Labs CBC & Chem 7: 04/06/23 06:31 04/06/23 06:31 Labs: Abnormal Lab Results - Last 24 Hours (Table) 04/05/23 04/05/23 04/05/23 Range/Units 08:32 08:32 11:41 WBC 12.7 H (3.8-10.6) k/uL Hgb 9.9 L (11.4-16.0) gm/dL Hct 33.6 L (34.0-46.0) % MCHC 29.4 L (31.0-37.0) g/dL Neutrophils # 8.5 H (1.3-7.7) k/uL BUN 23 H (7-17) mg/dL Glucose 136 H (74-99) mg/dL POC Glucose (mg/dL) 121 H (70-110) mg/dL 04/05/23 04/05/23 04/06/23 Range/Units 16:26 19:57 06:31 WBC 17.5 H (3.8-10.6) k/uL Hgb 10.5 L (11.4-16.0) gm/dL Hct (34.0-46.0) % MCHC 29.2 L (31.0-37.0) g/dL Neutrophils # 12.7 H (1.3-7.7) k/uL BUN (7-17) mg/dL Glucose (74-99) mg/dL POC Glucose (mg/dL) 217 H 235 H (70-110) mg/dL 04/06/23 Range/Units 06:31 WBC (3.8-10.6) k/uL Hgb (11.4-16.0) gm/dL Hct (34.0-46.0) % MCHC (31.0-37.0) g/dL Neutrophils # (1.3-7.7) k/uL BUN 18 H (7-17) mg/dL Glucose (74-99) mg/dL POC Glucose (mg/dL) (70-110) mg/dL Microbiology - Last 24 Hours (Table) 04/01/23 08:20 Blood Culture - Preliminary Blood 03/31/23 16:30 Blood Culture Gram Stain - Preliminary Blood Blood Culture - Preliminary Staphylococcus aureus - Imaging and Cardiology Chest x-ray: report reviewed, image reviewed Assessment and Plan Assessment: Sternal incision dehiscence with SUPERFICIAL infection, 03/27/23 and 03/28/23 culture positive for MSSA as well as anaerobic culture, 03/27/23 blood cultures positive for MSSA, 03/31 and 04/01 blood cultures preliminarily show no growth Leukocytosis Lactic acidosis, resolved History of coronary artery disease with left main disease status post 2 vessel CABG 03/02/23 History of moderate to severe mitral regurgitation status post mitral valve repair 03/02/2023 Postoperative hypotension and acute delirium, resolved Left lower extremity DVT on eliquis outpatient, last dose 03/25/23 am Cardiomyopathy/chronic systolic heart failure with decreased systolic func tionand EF 35% Hypertriglyceridemia, TG 201 Asthma with multiple exacerbations and chronic steroids Severe restrictive lung disease, FEV1 42% of predicted Diabetes mellitus, A1c 6.9% Previous tobacco dependence GERD Osteoarthritis COVID-19 infection in September 2022 Plan: No surgical intervention warranted at this time. Continue Wet to dry dressing change daily and prn, shower daily. Discussed wound care with the patient and reinforce the importance of complying with wound care. Antibiotics per infectious disease, on Kefzol and Flagyl at this time. WBC count trending down. Afebrile the last 24 hours. Continue home medications including eliquis, and lasix 20 mg by mouth daily. Sternal precautions remain in place. Heart hugger in place. Incentive spirometry encouraged, 10 times every hour while awake. Increase activity as tolerated, PT/OT following. Monitor blood sugars closely, hyperglycemia contributes to infection especially since patient is on chronic steroids. Needs to continue tight blood sugar controls. Will monitor daily labs and CXR. Recommend discharge to home with home care with follow up in wound care center when able. More recommendations to follow based on patient's clinical course. Time with Patient: Greater than 30
--- NOTE | 2023-04-06 10:49 | XR ---
EXAMINATION TYPE: XR chest 1V portable DATE OF EXAM: 04/06/2023 COMPARISON: 04/06/2023 HISTORY: Postop CABG TECHNIQUE: Single frontal view of the chest is obtained. FINDINGS: There is no focal air space opacity, pleural effusion, or pneumothorax seen. The cardiac silhouette size is within normal limits. The osseous structures are intact. A postsurgical changes and left-sided PICC line are noted with the tip overlying the SVC. Postsurgical change right shoulder . Linear changes involving the left lung likely typical of scar or atelectasis. IMPRESSION: No acute process. Postoperative atelectasis or scarring left upper lobe.
--- NOTE | 2023-04-06 10:52 | IR ---
PICC LINE PLACEMENT: HISTORY: Infection requiring long-term antibiotic therapy PROCEDURE: Ultrasound and fluoroscopic guidance of PICC line placement. COMPLICATIONS: None ANESTHESIA: 1. 1% Lidocaine locally. FINDINGS/TECHNIQUE: The procedure was explained to the patient. The risks, complications, benefits and alternatives were discussed and any questions were answered. Informed consent was obtained. The patient was placed supine on the fluoroscopic table and prepped and draped in the usual sterile fash ion. Utilizing a 21 gauge needle and sonographic and fluoroscopic guidance, access in the left basi lic vein was achieved and there is placement of a 0.018 guidewire. The vein is patent. A 4-F sheath was placed over the guidewire. The guidewire and dilator were removed and a 4-F. PICC line was plac ed through the sheath with the tip at the level of the SVC. The sheath was removed, the catheter was flushed and sutured into position. The patient was stable throughout the procedure and remained sta ble upon discharge from the Department of Radiology. The vein puncture was patent under ultrasound. A adame scale image was obtained to document patency of the vein punctured. All elements of the maximal barrier technique were utilized. FLUOROSCOPY TIME: DAP 0.1156Gy cm2 IMPRESSION: Successful PICC line placement under ultrasound and fluoroscopic guidance.
[2023-04-06 11:32] LABS: Glucose,Whole Blood 95 mg/dL (70-110)
--- NOTE | 2023-04-06 12:08 | P.DS ---
Providers Date of admission: 03/26/23 16:48 Attending physician: Wily Cuenca Consults: 03/26/23 16:46 Consult Physician Routine Consulting Provider: Barak Jackson Consult Reason/Comments: Postop infection Do you want consulting provider notified?: Already Contacted 03/28/23 09:55 Consult Physician Routine Consulting Provider: Trav Arzate Consult Reason/Comments: Sternotomy site infection Do you want consulting provider notified?: Yes Primary care physician: [facility] Course: Diagnoses Recent CABG on 03/02/2023 with sternal incision site dehiscence with infection, wound culture is growing staph species most likely MSSA MSSA bacteremia, secondary to above Leukocytosis, secondary to above Lactic acidosis, present on admission secondary to above, improved History of moderate to severe mitral regurgitation with mitral valve repair during CABG on 03/02/2023 Recent readmission with left lower extremity pain, positive for DVT started on eliquis Cardiomyopathy History of congestive heart failure, systolic dysfunction with most recent EF being 35% Diabetes mellitus GERD History of asthma, not in exacerbation Former smoker Hyperlipidemia Hospital course: 78-year-old -[place] female who presented to the emergency department with chest wall pain at her surgical site as she recently had mitral valve replacement with CABG approximately one month ago. Patient reports to having some opening of the incisional site and was seen at the cardiothoracic surgery office. Patient reports she did have chills the night before but did not check her temperature. Patient presents with chest wall wound infection secondary to MSSA and MSSA bacteremia, evaluated by ID team and she was treated with antibiotics of Flagyl and cefazolin. Patient showed interval improvement and pa tient back to baseline and ID team recommend IV antibiotic upon discharge with PICC line placed. Patient also will go to halfway for rehab and get IV therapy Patient was complaining of from some constipation, she is on medication showed little bowel movement yesterday. She tolerated her male 25 200%. No abdominal pain or nausea vomiting. However because of the persistent symptoms patient may benefit from GI evaluation which can be done as an outpatient, patient referred for marii Alejandro as an outpatient follow-up in 2 weeks and she verbalized understanding and acceptance Patient denies any chest pain or dyspnea, no abdominal pain, no urinary complaints or fever. Patient is been followed closely by cardiothoracic surgery who has cleared the patient for discharge Patient also states for discharge by ID team with antibiotics place per the recommendation Problems and management plan were discussed with the patient and he verbalized understanding and acceptance Patient was found stable and can be discharged to halfway in guarded prognosis however he needs follow-up as an outpatient. Patient was instructed to follow up with PCP Dr. Pearson within one week and patient agrees Patient was instructed to follow up with Dr. Astorga from cardiothoracic surgery in [address] Arzate from ID team in one week and she agrees to call and make her an appointment Also patient referred to Dr. Negrete, from GI in 2 weeks if her GI symptoms persist and she verbalized understanding and acceptance Physical exam Gen: patient is a AAOx3, no distress CVS: S1-S2, RRR, no murmur -Lungs: B/L CTA, no wheezing. Lower sternal chest wall wound and also with no significant surrounding cellulitis, trace in the place Abdomen: soft, no distention, no tenderness, positive bowel sounds Extremity: no leg edema or induration Time spent more than 35 minutes Patient Condition at Discharge: Stable Plan - Discharge Summary Discharge Rx Participant: Yes New Discharge Prescriptions: No Action Solifenacin Succinate [Vesicare] 10 mg PO HS Rosuvastatin Calcium [Crestor] 5 mg PO DAILY Latanoprost Ophth [Xalatan 0.005%] 1 drop BOTH EYES HS Multivit with Calcium,Iron,Min [Women's Multivitamin] 1 tab PO DAILY Ascorbic Acid [Vitamin C] 500 mg PO DAILY Spironolactone [Aldactone] 25 mg PO DAILY #30 tab Aspirin 325 mg PO DAILY #30 tab Pantoprazole [Protonix] 40 mg PO AC-BRKFST #30 tab metFORMIN HCL [Glucophage] 500 mg PO BID #60 tab Metoprolol Tartrate [Lopressor] 100 mg PO BID 30 Days #60 tab Carboxymethylcellulose Sodium [Refresh Tears] 1 drop BOTH EYES TID PRN PRN Reason: Dry Eye(S) Albuterol Inhaler [Ventolin Hfa Inhaler] 2 puff INHALATION RT-QID PRN each PRN Reason: Shortness Of Breath Or Wheezing Losartan [Cozaar] 50 mg PO DAILY #30 tab Acetaminophen [Tylenol Extra Strength] 500 mg PO Q4HR PRN #0 PRN Reason: Pain predniSONE 10 mg PO DAILY Sennosides-Docusate Sodium [Senokot-S] 2 tab PO HS PRN PRN Reason: Constipation Apixaban [Eliquis] 5 mg PO BID #60 tab Furosemide [Lasix] 40 mg PO DAILY #30 tablet Discharge Medication List Rosuvastatin Calcium [Crestor] 5 mg PO DAILY 07/16/14 [History] Solifenacin Succinate [Vesicare] 10 mg PO HS 07/16/14 [History] Latanoprost Ophth [Xalatan 0.005%] 1 drop BOTH EYES HS 08/17/17 [History] Carboxymethylcellulose Sodium [Refresh Tears] 1 drop BOTH EYES TID PRN 11/16/22 [History] Multivit with Calcium,Iron,Min [Women's Multivitamin] 1 tab PO DAILY 11/16/22 [History] Ascorbic Acid [Vitamin C] 500 mg PO DAILY 12/03/22 [History] Albuterol Inhaler [Ventolin Hfa Inhaler] 2 puff INHALATION RT-QID PRN each 01/16/23 [Rx] Acetaminophen [Tylenol Extra Strength] 500 mg PO Q4HR PRN #0 03/11/23 [Rx] Aspirin 325 mg PO DAILY #30 tab 03/11/23 [Rx] Losartan [Cozaar] 50 mg PO DAILY #30 tab 03/11/23 [Rx] Pantoprazole [Protonix] 40 mg PO AC-BRKFST #30 tab 03/11/23 [Rx] Spironolactone [Aldactone] 25 mg PO DAILY #30 tab 03/11/23 [Rx] metFORMIN HCL [Glucophage] 500 mg PO BID #60 tab 03/11/23 [Rx] Sennosides-Docusate Sodium [Senokot-S] 2 tab PO HS PRN 03/15/23 [History] predniSONE 10 mg PO DAILY 03/15/23 [History] Apixaban [Eliquis] 5 mg PO BID #60 tab 03/16/23 [Rx] Furosemide [Lasix] 40 mg PO DAILY #30 tablet 03/17/23 [Rx] Metoprolol Tartrate [Lopressor] 100 mg PO BID 30 Days #60 tab 03/17/23 [Rx] Follow up Appointment(s)/Referral(s): [facility] [NON-STAFF] - 4 Weeks (You will receive a phone call in approximately 4-6 weeks for evaluation for cardiac rehab) Magnus Pearson MD [Primary Care Provider] - 03/30/23 9:30 am Marii Negrete MD [STAFF PHYSICIAN] - 10 Days (GI doctor , for your nausea and constipation ) [facility], [NON-STAFF] - Wound Center,[facility] [NON-STAFF] - 1 Week Seth Astorga MD [STAFF PHYSICIAN] - 03/31/23 3:00 pm Arias Negrete MD [STAFF PHYSICIAN] - 3 Weeks (Saw patient 03/24/23, please call for appointment upon discharge from hospital) Francisco Swift MD [STAFF PHYSICIAN] - 3 Weeks (Was scheduled 03/27/23, please call for new appointment upon discharge from hospital) Activity/Diet/Wound Care/Special Instructions: DISCHARGE INSTRUCTIONS: 1. No driving for 4 weeks, or until physician gives their ok. 2. The patient should sleep in their own bed, no medical bed needed. 3. Stairs are not an issue. If the bedroom is upstairs, it is advised that the patient go up at night and down in the morning for the first week. Go slowly, using handrail and take 1 step at a time. 4. SHUKRI hose are to be worn for 30 days post surgery or until physician discontinues. 5. Heart hugger is to be worn 100% of the time until physician discontinues.(except when showering) 6. No lifting, pushing, or pulling more than 10 pounds for 12 weeks. The physician will advise of any restriction changes. 7. The patient is expected to continue the prescribed walking program. 8. Continue pain control per as needed orders. 9. Continue with incentive spirometry and splinting/heart hugger until otherwise directed by the physician. 10. Must shower daily using liquid antibacterial soap 11. Routine sternal incision care. No powders, lotions, ointments on incisions. No dressings are necessary on incisions unless they are draining. Dermabond tape is to remain on sternal incision until surgeon follow-up. 12. Please call surgeon/[employer] EXPORT ACCOUNT MANAGER for temp greater than 101 F or purulent drainage from incisions. 13. You should weigh yourself daily, record and bring log with you to follow up appointments. 14. A Red armband has been placed on the patient. It should be worn for 30 days post discharge from surgery and will be removed by the cardiac surgeons. If an ER visit is necessary, please make sure the number on the Red armband is called before going to ER. 15. You have been referred to and are expected to begin Cardiac Rehab in approximately 4-6 weeks. HOME HEALTH SERVICES TO PROVIDE: RN SKILLED HOME CARE SERVICES FOR POST-OP SURGICAL PATIENTS WITH THE FOLLOWING: Coronary Artery Bypass Surgery (CABG), Mitral Valve Replacement/Repa ir ( MVR), Aortic Valve Replacement/Repair (AVR) RN TO CONTINUE EDUCATION FROM ``ROAD TO A HEALTH HEART PATIENT EDUCATION MANUAL (GIVEN TO PATIENT IN THE HOSPITAL) MEDICATION RECONCILIATION WITH EDUCATION NEEDED ON FIRST HOME VISIT EMPHASIZE IMPORTANCE OF WEARING BREAST SUPPORT/HEART HUGGER ENCOURAGE USE OF INCENTIVE SPIROMETER 10 X EVERY HOUR WHILE AWAKE ENCOURAGE UTILIZATION OF LOWER EXTREMITY COMPRESSION STOCKINGS/SHUKRI HOSE and ELEVATE LEGS ABOVE LEVEL OF HEART WHILE AT REST. ENCOURAGE AMBULATION 3-5x/day INCREASING TOLERATES, WHILE AVOIDING EXTREMES IN TEMPERATURE FREQUENCY: RN TO OPEN THE PATIENT WITHIN 24 HOURS OF DISCHARGE FROM THE HOSPITAL WITH TELEHEALTH INSTALLED AT [facility] [place], RN TO VISIT 2-3 X A WEEK FOR 4 WEEKS ESTABLISHED BY PATIENT NEEDS. LABORATORY: CBC, CMP TO BE DRAWN ON THE THIRD DAY HOME, (RAN STAT) FAX RESULTS TO [phone]. TELEHEALTH PARAMETERS: WEIGHT: NOTIFY MD OF WEIGHT GAIN OF 2 LBS IN 24 HOURS OR 5 LBS IN ONE WEEK HR: NOTIFY MD OF HR <55 BPM OR HR>100 BPM BP: NOTIFY MD IF BP <90/55 OR BP>140/100 O2 SAT: NOTIFY MD IF PO2<93% ON ROOM AIR SEND TELEHEALTH REPORT TO [facility] SEWER AND CARDIOVASCULAR SURGEON THE FIRST WEEK OF CARE AND THEN BI-WEEKLY. PLEASE ADDITIONALLY COMMUNICATE ANY ABNORMALS AND NEW FINDINGS TO THE SURGEONS OFFICE. Discharge Disposition: HOME WITH HOME HEALTH SERVICES
--- NOTE | 2023-04-06 13:41 | XR ---
EXAMINATION TYPE: XR chest 2V DATE OF EXAM: 04/06/2023 COMPARISON: 04/06/2023 INDICATION: Postop CABG TECHNIQUE: Single frontal view of the chest is obtained. FINDINGS: The heart size is normal. The pulmonary vasculature is normal. The lungs are clear. Artifact overlies the chest. Sternotomy wires are present. Cardiac valve surgery. Post-CABG changes a re also evident. IMPRESSION: 1. No acute pulmonary process.
[2023-04-06] MEDS ORDERED: RX INFO: IV CONTRAST WAS GIVEN 1 EACH MISC MISCELLANE PRN (15:32)
[2023-04-06 16:48] LABS: Glucose,Whole Blood 119 mg/dL (70-110)
--- NOTE | 2023-04-06 16:59 | CT ---
EXAMINATION TYPE: CT chest w con DATE OF EXAM: 04/06/2023 COMPARISON: CT chest from 11 days earlier HISTORY: sternal abscess. Focal pain and swelling. CT DLP: 383.5 mGycm. Automated Exposure Control for Dose Reduction was Utilized. TECHNIQUE: CT scan of the thorax is performed following with IV Contrast, patient injected with 100 mL of Isovue 300. FINDINGS: LUNGS: Focal left posterior left linear scarring and/or atelectasis is redemonstrated. Right lung rem ains clear. There is no pleural effusion or pneumothorax seen. The tracheobronchial tree is patent. MEDIASTINUM: There are no greater than 1 cm hilar or mediastinal lymph nodes. No pericardial effusi on is seen. Cardiomegaly is redemonstrated. Overlying sternal wires and mediastinal clips are again seen. Interval resolution of adjacent air. No new well formed fluid collection or abscess identified. OTHER: Inverted nipples bilaterally are redemonstrated. Multilevel spurring in the spine is again see n. Liver is diffusely low dense consistent with fatty infiltration. IMPRESSION: Resolved air adjacent to the sternum. No new well-formed fluid collection or abscess seen . No other significant change from recent CT.
[2023-04-06] MEDS: LATANOPROST 0.005% OPHTH DROPS 2.5 ML BTL BOTH EYES SCH (20:36)
--- NOTE | 2023-04-06 21:57 | P.PN ---
Subjective Progress Note Date: 04/06/23 Principal diagnosis: Sternal wound infection Patient is a 78-year-old -Stateless female with a past medical history significant for coronary artery disease in this patient with status post two- vessel coronary bypass grafting and mitral valve repair on 03/02/2023 , presented to hospital with fever lower sternal wound dehiscence with purulent drainage and abnormal CT. On today's evaluation that is 04/06/2023, the patient continues to be afebrile the patient is breathing comfortably on room air , the patient pain to the lower sternal wound/incision has decreased in intensity , the patient denies having any chest pain shortness of breath or cough some reflux and nausea no vomiting and no diarrhea Objective - Vital Signs Vital signs: Vital Signs Temp 98.2 F 04/06/23 08:44 Pulse 74 04/06/23 11:57 Resp 18 04/06/23 11:57 BP 106/68 04/06/23 11:57 Pulse Ox 96 04/06/23 11:57 FiO2 21 04/05/23 21:37 Intake & Output 04/05/23 04/06/23 04/06/23 18:59 06:59 18:59 Intake Total 10 Output Total 0 Balance 0 10 Weight 72.5 kg Intake: IV 10 Invasive Line 6 10 Output: Stool 0 Other: Voiding Method Toilet Toilet Toilet # Voids 1 1 # Bowel Movements 1 - Exam GENERAL DESCRIPTION: An elderly female lying in bed in no distress RESPIRATORY SYSTEM: Unlabored breathing , decreased breath sounds at bases HEART: S1 S2 regular rate and rhythm , lower sternal wound currently dressed no drainage on the dressing ABDOMEN: Soft , no tenderness EXTREMITIES: No edema feet - Labs CBC & Chem 7: 04/06/23 06:31 04/06/23 06:31 Labs: Abnormal Lab Results - Last 24 Hours (Table) 04/05/23 04/05/23 04/06/23 Range/Units 16:26 19:57 06:31 WBC 17.5 H (3.8-10.6) k/uL Hgb 10.5 L (11.4-16.0) gm/dL MCHC 29.2 L (31.0-37.0) g/dL Neutrophils # 12.7 H (1.3-7.7) k/uL BUN (7-17) mg/dL POC Glucose (mg/dL) 217 H 235 H (70-110) mg/dL 04/06/23 Range/Units 06:31 WBC (3.8-10.6) k/uL Hgb (11.4-16.0) gm/dL MCHC (31.0-37.0) g/dL Neutrophils # (1.3-7.7) k/uL BUN 18 H (7-17) mg/dL POC Glucose (mg/dL) (70-110) mg/dL Microbiology - Last 24 Hours (Table) 04/01/23 08:20 Blood Culture - Preliminary Blood 03/31/23 16:30 Blood Culture Gram Stain - Preliminary Blood Blood Culture - Preliminary Staphylococcus aureus Assessment and Plan (1) Sepsis Current Visit: Yes Status: Acute Code(s): A41.9 - SEPSIS, UNSPECIFIED ORGANISM SNOMED Code(s): 53718835 (2) Surgical wound dehiscence Current Visit: No Status: Acute Code(s): T81.31XA - DISRUPTION OF EXTERNAL OPERATION (SURGICAL) WOUND, NEC, INIT SNOMED Code(s): 07851767 Plan: Patient presented to hospital with sepsis in this patient with a fever tachycardia elevated white count source being sternal wound infection with dehiscence of the lower end of the incision patient did have abnormal CT with multiple foci of air and now with evidence for significant purulent drainage on examination patient has been reevaluated by CT surgery did not recommend any surgical debridement 2Local cultures have been finalized with MSSA, patient did have elevated inflammatory markers, blood cultures obtained, with positive with Staphylococcus aureus likely MSSA 3blood cultures has been repeated on 03/31/2023 positive for MSSA however 04/01/2023 so far negative, patient white count jumped to 17K today, Which is slightly concerning and possible abscess or deep infection that may need to be drained this was discussed with the CT surgery PA, patient benefit from a CT of the chest with contrast before discharge which will be ordered continue with the cefazolin and Flagyl and monitor clinical course closely Time with Patient: Less than 30
[2023-04-07 06:11] LABS: Glucose,Whole Blood 104 mg/dL (70-110)
[2023-04-07] MEDS: INSULIN ASPART (NovoLOG) 100 UNIT/ML VIAL SQ SCH ×2 (06:18→11:35)
[2023-04-07] MEDS: PANTOPRAZOLE 40 MG TABLET PO SCH (06:23)
[2023-04-07] MEDS: ALBUTEROL INHALATION PRN ×3 (07:44→15:21)
[2023-04-07 08:32] VITALS: TEMP 98.2
[2023-04-07] MEDS: ASCORBIC ACID 500 MG TAB PO SCH (08:32)
[2023-04-07] MEDS: LOSARTAN 50 MG TAB PO SCH (08:33)
[2023-04-07] MEDS: ASPIRIN 81 MG PO SCH (08:33)
[2023-04-07] MEDS: FUROSEMIDE 20 MG TAB PO SCH (08:33)
[2023-04-07] MEDS: SPIRONOLACTONE 25 MG TAB PO SCH (08:33)
[2023-04-07] MEDS: APIXABAN 5 MG TAB PO SCH (08:33)
[2023-04-07] MEDS: MULTIVITAMINS, THERA 1 EACH TAB PO SCH (08:33)
[2023-04-07] MEDS: TROSPIUM CHLORIDE 20 MG TABLET PO SCH (08:33)
[2023-04-07] MEDS: predniSONE 10 MG TAB PO SCH (08:33)
[2023-04-07] MEDS: METOPROLOL TARTRATE 50 MG TAB PO SCH (08:33)
[2023-04-07] MEDS: ATORVASTATIN 10 MG TAB PO SCH (08:33)
[2023-04-07] MEDS: metroNIDAZOLE-NS PMX 500 MG in SALINE 1 100ML.BAG IVPB SCH (08:34)
[2023-04-07] MEDS: metFORMIN 500 MG TAB PO SCH (08:34)
--- NOTE | 2023-04-07 09:57 | P.PN ---
Subjective Progress Note Date: 04/07/23 Principal diagnosis: Sternal incision dehiscence with superficial infection, leukocytosis, lactic acidosis. Past medical history significant for coronary artery disease with left main disease and moderate to severe mitral regurgitation status post 2 vessel CABG and mitral valve repair 03/02/23, left lower extremity DVT on eliquis outpatient, cardiomyopathy/chronic systolic heart failure with decreased systolic functionand EF 35%, hypertriglyceridemia, asthma with multiple exa cerbations and chronic steroids, severe restrictive lung disease, diabetes mellitus, previous tobacco dependence, GERD, osteoarthritis, COVID-19 infection in September 2022. The patient was seen and examined in follow-up today 04/07/2023 at her bedside on the cardiac stepdown unit. Currently she is sitting up to the bedside chair, is awake, alert, oriented 3 and is in no acute apparent distress. The patient's distal sternal incision dehiscence wound looks clean with granulated tissue. She continues to have daily wet-to-dry dressing changes and as needed. She remains afebrile the last 24 hours with her T-max temperature 98.2F. She remains on IV antibiotic coverage with Kefzol and Flagyl managed by infectious disease. The patient's WBC count was elevated at 17.5 yesterday, Dr. Arzate ordered a computed tomography scan of the chest with contrast to evaluate the sternal incision. The computed tomography scan showed resolved air adjacent to the sternum, and no new well-formed fluid collection or abscess seen. The patient received a PICC line yesterday and is ready to be discharged to subacute rehab for further monitoring and rehabilitation. Objective - Vital Signs Vital signs: Vital Signs Temp 98.2 F 04/07/23 08:32 Pulse 89 04/07/23 08:32 Resp 18 04/07/23 08:32 BP 103/57 04/07/23 08:32 Pulse Ox 95 04/07/23 08:32 FiO2 21 04/05/23 21:37 Intake & Output 04/06/23 04/07/23 04/07/23 18:59 06:59 18:59 Intake Total 378 Balance 378 Weight 72.3 kg Intake: IV 20 Invasive Line 6 20 Oral 358 Other: Voiding Method Toilet Toilet Toilet # Voids 2 1 - Exam CONSTITUTIONAL: Appears comfortable, cooperative, no acute distress. RESPIRATORY: Lungs sounds diminished bilaterally. Respirations are symmetrical, nonlabored. Currently on room air with oxygen saturation 100%. Able to achieve 1000 mL on incentive spirometry. Strong nonproductive cough. CARDIOVASCULAR: S1, S2 present. Regular rate and rhythm, sinus rhythm on telemetry. Sternum stable. Palpable peripheral pulses bilaterally. No edema present. No calf pain or tenderness noted. Heart hugger in place with patient demonstrating appropriate use. Antiembolism stockings, SCDs present. GASTROINTESTINAL: Abdomen soft, nontender, nondistended. Active bowel sounds present 4 quadrants. Tolerating diet. GENITOURINARY: Continues to void although sometimes having episodes of incontinence. INTEGUMENTARY: Skin is warm and dry. No clubbing or cyanosis is present. Midline sternal chest incision dehisced, clean with granulation tissue present, scant serosanguineous drainage. Left lower extremity EVH site well approximated without redness or drainage. NEUROLOGIC: Cranial nerves II through XII intact. No focal deficits. MUSKULOSKELETAL: Able to move all extremities, strength equal bilaterally. PSYCHIATRIC: Alert and oriented to person place and time, appropriate affect, intact judgment and insight. - Allied health notes Allied health notes reviewed: nursing - Labs CBC & Chem 7: 04/06/23 06:31 04/06/23 06:31 Labs: Abnormal Lab Results - Last 24 Hours (Table) 04/06/23 Range/Units 16:46 POC Glucose (mg/dL) 119 H (70-110) mg/dL Microbiology - Last 24 Hours (Table) 03/31/23 16:30 Blood Culture Gram Stain - Preliminary Blood Blood Culture - Preliminary Staphylococcus aureus 04/01/23 08:20 Blood Culture - Preliminary Blood Assessment and Plan Assessment: Sternal incision dehiscence with SUPERFICIAL infection, 03/27/23 and 03/28/23 culture positive for MSSA as well as anaerobic culture, 03/27/23 blood cultures positive for MSSA, 03/31 and 04/01 blood cultures preliminarily show no growth Leukocytosis Lactic acidosis, resolved History of coronary artery disease with left main disease status post 2 vessel CABG 03/02/23 History of moderate to severe mitral regurgitation status post mitral valve repair 03/02/2023 Postoperative hypotension and acute delirium, resolved Left lower extremity DVT on eliquis outpatient, last dose 03/25/23 am Cardiomyopathy/chronic systolic heart failure with decreased systolic functionand EF 35% Hypertriglyceridemia, TG 201 Asthma with multiple exacerbations and chronic steroids Severe restrictive lung disease, FEV1 42% of predicted Diabetes mellitus, A1c 6.9% Previous tobacco dependence GERD Osteoarthritis COVID-19 infection in September 2022 Plan: No surgical intervention warranted at this time. CT scan of the chest results reviewed. Continue Wet to dry dressing change daily and prn, shower daily. Discussed woun d care with the patient and reinforce the importance of complying with wound care. Antibiotics per infectious disease, on Kefzol and Flagyl at this time. Afebrile in the last 24 hours. Continue home medications including eliquis, and lasix 20 mg by mouth daily. Sternal precautions remain in place. Heart hugger in place. Advise surgical support bra. Incentive spirometry encouraged, 10 times every hour while awake. Increase activity as tolerated, PT/OT following. Monitor blood sugars closely, hyperglycemia contributes to infection especially since patient is on chronic steroids. Needs to continue tight blood sugar controls. Per the CV surgery service, the patient be discharged with wound care orders to the subacute rehab when okay with other consultants and primary care service. More recommendations to follow based on patient's clinical course. Time with Patient: Less than 30
[2023-04-07 10:36] LABS: Basophils # (A) 0.1 k/uL (0-0.2); Basophils % (A) 1 %; Eosinophils # (A) 0.2 k/uL (0-0.7); Eosinophils % (A) 2 %; HCT 33.3 % (34.0-46.0); Hypochromasia Marked; Lymphocytes # (A) 2.9 k/uL (1.0-4.8); Lymphocytes % (A) 29 %; MCH 26.1 pg (25.0-35.0); MCHC 30.1 g/dL (31.0-37.0); MCV 86.6 fL (80.0-100.0); Mean Platelet Volume 7.2; Monocytes # (A) 0.5 k/uL (0-1.0); Monocytes % (A) 5 %; Neutrophils # (A) 6.1 k/uL (1.3-7.7); Neutrophils % (A) 62 %; Platelet Count 440 k/uL (150-450); Poikilocytosis Slight; RBC 3.85 m/uL (3.80-5.40)
[2023-04-07 10:56] LABS: ALT 13 U/L (4-34); AST 28 U/L (14-36); African American GFR (CKD) >90 (>60 ml/min/1.73 sqM); Albumin 3.6 g/dL (3.5-5.0); Alkaline Phosphatase 60 U/L (38-126); Anion Gap 16 mmol/L; Blood Urea Nitrogen 13 mg/dL (7-17); C Reactive Protein 3.6 mg/dL (<1.0); Calcium 9.4 mg/dL (8.4-10.2); Carbon Dioxide 21 mmol/L (22-30); Chloride 102 mmol/L (98-107); Glucose 129 mg/dL (74-99); Non-African American GFR(CKD) 87 (>60 ml/min/1.73 sqM); Potassium 4.3 mmol/L (3.5-5.1); Sodium 139 mmol/L (137-145); Total Bilirubin 0.3 mg/dL (0.2-1.3); Total Protein 6.8 g/dL (6.3-8.2)
[2023-04-07 11:31] LABS: Glucose,Whole Blood 115 mg/dL (70-110)
[2023-04-07 12:36] LABS: Glucose,Whole Blood 186 mg/dL (70-110)
--- NOTE | 2023-04-07 13:19 | P.DS ---
Providers Date of admission: 03/26/23 16:48 Attending physician: Wily Cuenca Consults: 03/26/23 16:46 Consult Physician Routine Consulting Provider: Barak Jackson Consult Reason/Comments: Postop infection Do you want consulting provider notified?: Already Contacted 03/28/23 09:55 Consult Physician Routine Consulting Provider: Trav Arzate Consult Reason/Comments: Sternotomy site infection Do you want consulting provider notified?: Yes Primary care physician: [facility] Course: Diagnoses Recent CABG on 03/02/2023 with sternal incision site dehiscence with infection, wound culture is growing staph species most likely MSSA MSSA bacteremia, secondary to above Leukocytosis, secondary to above, resolved Lactic acidosis, present on admission secondary to above, improved History of moderate to severe mitral regurgitation with mitral valve repair during CABG on 03/02/2023 Recent readmission with left lower extremity pain, positive for DVT started on eliquis Cardiomyopathy History of congestive heart failure, systolic dysfunction with most recent EF being 35% Diabetes mellitus GERD History of asthma, not in exacerbation Former smoker Hyperlipidemia Hospital course: 78-year-old -[place] female who presented to the emergency department with chest wall pain at her surgical site as she recently had mitral valve replacement with CABG approximately one month ago. Patient reports to having some opening of the incisional site and was seen at the cardiothoracic surgery office. Patient reports she did have chills the night before but did not check her temperature. Patient presents with chest wall wound infection secondary to MSSA and MSSA bacteremia, evaluated by ID team and she was treated with antibiotics of Flagyl and cefazolin. Patient showed interval improvement and patient back to baseline and ID team recommend IV antibiotic upon discharge with PICC line placed. Patient also will go [facility] and get IV therapy Patient was complaining of from some constipation, she is on medication showed little bowel movement yesterday. She tolerated her male 25 200%. No abdominal pain or nausea vomiting. However because of the persistent symptoms patient may benefit from GI evaluation which can be done as an outpatient, patient referred for marii Alejandro as an outpatient follow-up in 2 weeks and she verbalized understanding and acceptance Patient denies any chest pain or dyspnea, no abdominal pain, no urinary complaints or fever. Patient is been followed closely by cardiothoracic surgery who has cleared the patient for discharge Patient also cleared for discharge by ID team with antibiotics place per their recommendation Problems and management plan were discussed with the patient and he verbalized understanding and acceptance Patient was found stable and can be discharged to [facility] in guarded prognosis however he needs follow-up as an outpatient. Patient was instructed to follow up with PCP Dr. Pearson within one week and patient agrees Patient was instructed to follow up with Dr. Astorga from cardiothoracic surgery in [address] Arzate from ID team in one week and she agrees to call and make her an appointment Also patient referred to Dr. Negrete, from GI in 2 weeks if her GI symptoms persist and she verbalized understanding and acceptance Physical exam Gen: patient is a AAOx3, no distress CVS: S1-S2, RRR, no murmur -Lungs: B/L CTA, no wheezing. Lower sternal chest wall wound and also with no significant surrounding cellulitis, trace in the place Abdomen: soft, no distention, no tenderness, positive bowel sounds Extremity: no leg edema or induration Time spent more than 35 minutes Patient Condition at Discharge: Stable Plan - Discharge Summary Discharge Rx Participant: Yes New Discharge Prescriptions: New Furosemide [Lasix] 20 mg PO DAILY tab Mag Hydrox/Al Hydrox/Simeth [Maalox] 30 ml PO Q4HR PRN ml PRN Reason: Gi Upset Continue Solifenacin Succinate [Vesicare] 10 mg PO HS Rosuvastatin Calcium [Crestor] 5 mg PO DAILY Latanoprost Ophth [Xalatan 0.005%] 1 drop BOTH EYES HS Multivit with Calcium,Iron,Min [Women's Multivitamin] 1 tab PO DAILY Ascorbic Acid [Vitamin C] 500 mg PO DAILY Spironolactone [Aldactone] 25 mg PO DAILY #30 tab Aspirin 325 mg PO DAILY #30 tab Pantoprazole [Protonix] 40 mg PO AC-BRKFST #30 tab metFORMIN HCL [Glucophage] 500 mg PO BID #60 tab Metoprolol Tartrate [Lopressor] 100 mg PO BID 30 Days #60 tab Carboxymethylcellulose Sodium [Refresh Tears] 1 drop BOTH EYES TID PRN PRN Reason: Dry Eye(S) Albuterol Inhaler [Ventolin Hfa Inhaler] 2 puff INHALATION RT-QID PRN each PRN Reason: Shortness Of Breath Or Wheezing Losartan [Cozaar] 50 mg PO DAILY #30 tab Acetaminophen [Tylenol Extra Strength] 500 mg PO Q4HR PRN #0 PRN Reason: Pain predniSONE 10 mg PO DAILY Sennosides-Docusate Sodium [Senokot-S] 2 tab PO HS PRN PRN Reason: Constipation Apixaban [Eliquis] 5 mg PO BID #60 tab Discontinued Furosemide [Lasix] 40 mg PO DAILY #30 tablet Discharge Medication List Rosuvastatin Calcium [Crestor] 5 mg PO DAILY 07/16/14 [History] Solifenacin Succinate [Vesicare] 10 mg PO HS 07/16/14 [History] Latanoprost Ophth [Xalatan 0.005%] 1 drop BOTH EYES HS 08/17/17 [History] Carboxymethylcellulose Sodium [Refresh Tears] 1 drop BOTH EYES TID PRN 11/16/22 [History] Multivit with Calcium,Iron,Min [Women's Multivitamin] 1 tab PO DAILY 11/16/22 [History] Ascorbic Acid [Vitamin C] 500 mg PO DAILY 12/03/22 [History] Albuterol Inhaler [Ventolin Hfa Inhaler] 2 puff INHALATION RT-QID PRN each 01/16/23 [Rx] Acetaminophen [Tylenol Extra Strength] 500 mg PO Q4HR PRN #0 03/11/23 [Rx] Aspirin 325 mg PO DAILY #30 tab 03/11/23 [Rx] Losartan [Cozaar] 50 mg PO DAILY #30 tab 03/11/23 [Rx] Pantoprazole [Protonix] 40 mg PO AC-BRKFST #30 tab 03/11/23 [Rx] Spironolactone [Aldactone] 25 mg PO DAILY #30 tab 03/11/23 [Rx] metFORMIN HCL [Glucophage] 500 mg PO BID #60 tab 03/11/23 [Rx] Sennosides-Docusate Sodium [Senokot-S] 2 tab PO HS PRN 03/15/23 [History] predniSONE 10 mg PO DAILY 03/15/23 [History] Apixaban [Eliquis] 5 mg PO BID #60 tab 03/16/23 [Rx] Metoprolol Tartrate [Lopressor] 100 mg PO BID 30 Days #60 tab 03/17/23 [Rx] Furosemide [Lasix] 20 mg PO DAILY tab 04/06/23 [Rx] Mag Hydrox/Al Hydrox/Simeth [Maalox] 30 ml PO Q4HR PRN ml 04/06/23 [Rx] Follow up Appointment(s)/Referral(s): [facility] [NON-STAFF] - 4 Weeks (You will receive a phone call in approximately 4-6 weeks for evaluation for cardiac rehab) Magnus Pearson MD [Primary Care Provider] - 03/30/23 9:30 am Marii Negrete MD [STAFF PHYSICIAN] - 10 Days (GI doctor , for your nausea and constipation ) [facility], [NON-STAFF] - Wound Center,[facility] [NON-STAFF] - 1 Week Seth Astorga MD [STAFF PHYSICIAN] - 03/31/23 3:00 pm Arias Negrete MD [STAFF PHYSICIAN] - 3 Weeks (Saw patient 03/24/23, please call for appointment upon discharge from hospital) Francisco Swift MD [STAFF PHYSICIAN] - 3 Weeks (Was scheduled 03/27/23, please call for new appointment upon discharge from hospital) Activity/Diet/Wound Care/Special Instructions: Wound care orders: Change dressing to the lower sternal wound daily and when necessary with wet to dry dressings. Follow in the wound healing center center. DISCHARGE INSTRUCTIONS: 1. No driving for 4 weeks, or until physician gives their ok. 2. The patient should sleep in their own bed, no medical bed needed. 3. Stairs are not an issue. If the bedroom is upstairs, it is advised that the patient go up at night and down in the morning for the first week. Go slowly, using handrail and take 1 step at a time. 4. SHUKRI hose are to be worn for 30 days post surgery or until physician discontinues. 5. Heart hugger is to be worn 100% of the time until physician discontinues.(except when showering) 6. No lifting, pushing, or pulling more than 10 pounds for 12 weeks. The physician will advise of any restriction changes. 7. The patient is expected to continue the prescribed walking program. 8. Continue pain control per as needed orders. 9. Continue with incentive spirometry and splinting/heart hugger until otherwise directed by the physician. 10. Must shower daily using liquid antibacterial soap 11. Routine sternal incision care. No powders, lotions, ointments on incisions. No dressings are necessary on incisions unless they are draining. Dermabond tape is to remain on sternal incision until surgeon follow-up. 12. Please call surgeon/YOGA COORDINATOR for temp greater than 101 F or purulent drainage from incisions. 13. You should weigh yourself daily, record and bring log with you to follow up appointments. 14. A Red armband has been placed on the patient. It should be worn for 30 days post discharge from surgery and will be removed by the cardiac surgeons. If an ER visit is necessary, please make sure the number on the Red armband is called before going to ER. 15. You have been referred to and are expected to begin Cardiac Rehab in approximately 4-6 weeks. HOME HEALTH SERVICES TO PROVIDE: RN SKILLED HOME CARE SERVICES FOR POST-OP SURGICAL PATIENTS WITH THE FOLLOWING: Coronary Artery Bypass Surgery (CABG), Mitral Valve Replacement/Repair ( MVR), Aortic Valve Replacement/Repair (AVR) RN TO CONTINUE EDUCATION FROM ``ROAD TO A HEALTH HEART PATIENT EDUCATION MANUAL (GIVEN TO PATIENT IN THE HOSPITAL) MEDICATION RECONCILIATION WITH EDUCATION NEEDED ON FIRST HOME VISIT EMPHASIZE IMPORTANCE OF WEARING BREAST SUPPORT/HEART HUGGER ENCOURAGE USE OF INCENTIVE SPIROMETER 10 X EVERY HOUR WHILE AWAKE ENCOURAGE UTILIZATION OF LOWER EXTREMITY COMPRESSION STOCKINGS/SHUKRI HOSE and ELEVATE LEGS ABOVE LEVEL OF HEART WHILE AT REST. ENCOURAGE AMBULATION 3-5x/day INCREASING TOLERATES, WHILE AVOIDING EXTREMES IN TEMPERATURE FREQUENCY: RN TO OPEN THE PATIENT WITHIN 24 HOURS OF DISCHARGE FROM THE HOSPITAL WITH [place] [facility] [place] [facility] [place] TO VISIT 2-3 X A WEEK FOR 4 WEEKS ESTABLISHED BY PATIENT NEEDS. LABORATORY: CBC, CMP TO BE DRAWN ON THE THIRD DAY HOME, (RAN STAT) FAX RESULTS TO [phone]. TELEHEALTH PARAMETERS: WEIGHT: NOTIFY MD OF WEIGHT GAIN OF 2 LBS IN 24 HOURS OR 5 LBS IN ONE WEEK HR: NOTIFY MD OF HR <55 BPM OR HR>100 BPM BP: NOTIFY MD IF BP <90/55 OR BP>140/100 O2 SAT: NOTIFY MD IF PO2<93% ON ROOM AIR SEND TELEHEALTH REPORT TO RETAIL ACCOUNT EXECUTIVE AND CARDIOVASCULAR SURGEON THE FIRST WEEK OF CARE AND THEN BI-WEEKLY. PLEASE ADDITIONALLY COMMUNICATE ANY ABNORMALS AND NEW FINDINGS TO THE SURGEONS OFFICE. Discharge Disposition: TRANSFER TO SNF/ECF
[2023-04-07 13:52] LABS: Erythrocyte Sedimentation Rate 75 mm/hr (0-20)
[2023-04-07 15:16] VITALS: BP 112/64; PULSE 79; RESP 16
--- NOTE | 2023-04-09 06:51 | CDI ---
Documentation Clarification Form Date: 04/09/2023 6:07:51 AM From: Juliet Montgomery Admit Date: 03/26/2023 4:48:00 PM Patient Name: Mary Bolaños Visit Number: [id number] Discharge Date: 04/07/2023 4:07:00 PM ATTENTION: The Clinical Documentation Specialists (CDI) and [facility] Coding Staff appreciate your assistance in clarifying documentation. Please respond to the clarification below the line at the bottom and electronically sign. The CDI & [facility] Coding staff will review the response and follow-up if needed. Please note: Queries are made part of the Legal Health Record. If you have any questions, please contact the author of this message via ITS. Dr. Yeager E Sheet Conflicting documentation has been found in the medical record. As attending physician, please provide clarification. Per DCS Patient presents with chest wall wound infection secondary to MSSA bacteremia. Per ED note, ID consult and PN's 03/29, 03/30, 03/31, 04/01, 04/02, 04/03, 04/04, 04/05 document MSSA Sepsis History/Risk Factors: infection and wound dehiscence from previous CABG Clinical Indicators: positive blood cultures MSSA Treatment: PICC line placed for continued antibiotics, Vancomycin Please clarify which diagnosis is most appropriate: [ ] MSSA sepsis [ ] MSSA bacteremia [ ] Other (please specify) [ ] Unable to determine MSSA bacteremia is already documented in my discharge summary , please refer to the note from 04/07 MTDD
--- NOTE | 2023-04-13 07:21 | P.PN ---
Subjective Progress Note Date: 04/07/23 Principal diagnosis: Sternal wound infection Patient is a 78-year-old -[place] female with a past medical history significant for coronary artery disease in this patient with status post two- vessel coronary bypass grafting and mitral valve repair on 03/02/2023 , presented to hospital with fever lower sternal wound dehiscence with purulent drainage and abnormal CT. On today's evaluation that is 04/07/2023, the patient remains to be afebrile the patient is breathing comfortably on room air , the patient pain to the lower sternal wound/incision has improved , the patient denies having any shortness of breath or cough some reflux and nausea no vomiting and no diarrhea Objective - Vital Signs Vital signs: Vital Signs Temp 98.2 F 04/07/23 08:32 Pulse 89 04/07/23 08:32 Resp 18 04/07/23 08:32 BP 103/57 04/07/23 08:32 Pulse Ox 95 04/07/23 08:32 FiO2 21 04/05/23 21:37 Intake & Output 04/06/23 04/07/23 04/07/23 18:59 06:59 18:59 Intake Total 378 Balance 378 Weight 72.3 kg Intake: IV 20 Invasive Line 6 20 Oral 358 Other: Voiding Method Toilet Toilet Toilet # Voids 2 1 - Exam GENERAL DESCRIPTION: An elderly female lying in bed in no distress RESPIRATORY SYSTEM: Unlabored breathing , decreased breath sounds at bases HEART: S1 S2 regular rate and rhythm , lower sternal wound currently dressed no drainage on the dressing ABDOMEN: Soft , no tenderness EXTREMITIES: No edema feet - Labs CBC & Chem 7: 04/07/23 10:04 04/07/23 10:04 Labs: Abnormal Lab Results - Last 24 Hours (Table) 04/06/23 04/07/23 04/07/23 Range/Units 16:46 10:04 10:04 Hgb 10.0 L (11.4-16.0) gm/dL Hct 33.3 L (34.0-46.0) % MCHC 30.1 L (31.0-37.0) g/dL RDW 16.0 H (11.5-15.5) % Carbon Dioxide 21 L (22-30) mmol/L Glucose 129 H (74-99) mg/dL POC Glucose (mg/dL) 119 H (70-110) mg/dL C-Reactive Protein 3.6 H (<1.0) mg/dL Microbiology - Last 24 Hours (Table) 03/31/23 16:30 Blood Culture Gram Stain - Preliminary Blood Blood Culture - Preliminary Staphylococcus aureus 04/01/23 08:20 Blood Culture - Preliminary Blood Assessment and Plan (1) Sepsis Status: Acute Code(s): A41.9 - SEPSIS, UNSPECIFIED ORGANISM SNOMED Code(s): 46678112 (2) Surgical wound dehiscence Status: Acute Code(s): T81.31XA - DISRUPTION OF EXTERNAL OPERATION (SURGICAL) WOUND, NEC, INIT SNOMED Code(s): 92121611 Plan: Patient presented to hospital with sepsis in this patient with a fever tachycardia elevated white count source being sternal wound infection with dehiscence of the lower end of the incision patient did have abnormal CT with multiple foci of air and now with evidence for significant purulent drainage on examination patient has been reevaluated by CT surgery did not recommend any surgical debridement 2Local cultures have been finalized with MSSA, patient did have elevated inflammatory markers, blood cultures obtained, positive for MSSA 3blood cultures has been repeated on 03/31/2023 positive for MSSA however 04/01/2023 so far negative, patient did have CT of the chest with contrast that was negative for abscess and pt wbc has normalized , she will be able to go to [place] on IV cefazolin 2gm q8hr x 4 weeks and close outpatient follow up Time with Patient: Less than 30
== END 2023-04-07 16:07 | DRG 863 ==
LOC: EC 11:44 → 3SCARD 16:48
PROVIDERS: ADMIT Hospitalist; ATTEND Hospitalist
DX: T81.49XA Infection following a procedure, other surgical site, initial encounter (principal); T81.31XA Disruption of external operation (surgical) wound, not elsewhere classified, initial encounter; E87.20 Acidosis, unspecified; I42.9 Cardiomyopathy, unspecified; I50.22 Chronic systolic (congestive) heart failure; L98.495 Non-pressure chronic ulcer of skin of other sites with muscle involvement without evidence of necrosis; R78.81 Bacteremia; E11.622 Type 2 diabetes mellitus with other skin ulcer; E78.1 Pure hyperglyceridemia; E78.5 Hyperlipidemia, unspecified; R41.0 Disorientation, unspecified; I25.10 Atherosclerotic heart disease of native coronary artery without angina pectoris; I34.0 Nonrheumatic mitral (valve) insufficiency; Z95.2 Presence of prosthetic heart valve; E66.9 Obesity, unspecified; Z68.31 Body mass index [BMI] 31.0-31.9, adult; Z86.718 Personal history of other venous thrombosis and embolism; J45.909 Unspecified asthma, uncomplicated; Z79.01 Long term (current) use of anticoagulants; Z86.16 Personal history of COVID-19; Z20.822 Contact with and (suspected) exposure to COVID-19; K21.9 Gastro-esophageal reflux disease without esophagitis; K59.00 Constipation, unspecified; M19.90 Unspecified osteoarthritis, unspecified site; N32.81 Overactive bladder; H40.9 Unspecified glaucoma; Z71.3 Dietary counseling and surveillance; Z28.311 Partially vaccinated for COVID-19; Z28.21 Immunization not carried out because of patient refusal; Z98.1 Arthrodesis status; Z79.52 Long term (current) use of systemic steroids; Z79.82 Long term (current) use of aspirin; Z79.84 Long term (current) use of oral hypoglycemic drugs; Z79.899 Other long term (current) drug therapy; Z82.49 Family history of ischemic heart disease and other diseases of the circulatory system; Z87.891 Personal history of nicotine dependence; Z95.1 Presence of aortocoronary bypass graft; Z88.1 Allergy status to other antibiotic agents; Z88.2 Allergy status to sulfonamides; Z88.8 Allergy status to other drugs, medicaments and biological substances
CPT/HCPCS: 36415; 36573; 71045; 71046; 71260; 80048; 80053; 80202; 81001; 83605; 83735; 85025; 85027; 85610; 85652; 85730; 86140; 87040; 87070; 87075; 87077; 87186; 87205; 87636; 93005; 94640; 94760; 96365; 99285

== ENCOUNTER 2023-04-12 10:53 | Emergency (ER) | payer MEDICARE, MEDICAID ==
[2023-04-12 11:14] VITALS: RESP 18; TEMP 98.1
--- NOTE | 2023-04-12 11:41 | ED ---
General Adult HPI - General Chief complaint: Shortness of Breath Stated complaint: SOB Time Seen by Provider: 04/12/23 10:58 Source: patient, EMS, RN notes reviewed, old records reviewed Mode of arrival: EMS Limitations: no limitations - History of Present Illness Initial comments: This a 78-year-old female presents emergency department via EMS chief complaint of shortness of breath. Patient states she's been noticing that she's been having exertional shortness of breath. Patient's states she is status post CABG on 03/02/2023. Patient did have some complications after surgery in which she developed a "blood clots she has been on Eliquis. Patient also developed infection of her chest wall. Patient denies any. Chills she is currently on IV antibiotic infusions. Patient denies any chest pain she has any symptoms at rest. - Related Data Home Medications Medication Instructions Recorded Confirmed Rosuvastatin Calcium [Crestor] 5 mg PO DAILY 07/16/14 03/26/23 Solifenacin Succinate [Vesicare] 10 mg PO HS 07/16/14 03/26/23 Latanoprost Ophth [Xalatan 0.005%] 1 drop BOTH EYES HS 08/17/17 03/26/23 Carboxymethylcellulose Sodium 1 drop BOTH EYES TID PRN 11/16/22 03/26/23 [Refresh Tears] Multivit with Calcium,Iron,Min 1 tab PO DAILY 11/16/22 03/26/23 [Women's Multivitamin] Ascorbic Acid [Vitamin C] 500 mg PO DAILY 12/03/22 03/26/23 Sennosides-Docusate Sodium 2 tab PO HS PRN 03/15/23 03/26/23 [Senokot-S] predniSONE 10 mg PO DAILY 03/15/23 03/26/23 Previous Rx's Medication Instructions Recorded Albuterol Inhaler [Ventolin Hfa 2 puff INHALATION RT-QID PRN each 01/16/23 Inhaler] Acetaminophen [Tylenol Extra 500 mg PO Q4HR PRN #0 03/11/23 Strength] Aspirin 325 mg PO DAILY #30 tab 03/11/23 Losartan [Cozaar] 50 mg PO DAILY #30 tab 03/11/23 Pantoprazole [Protonix] 40 mg PO AC-BRKFST #30 tab 04/19/23 Spironolactone [Aldactone] 25 mg PO DAILY #30 tab 03/11/23 metFORMIN HCL [Glucophage] 500 mg PO BID #60 tab 03/11/23 Apixaban [Eliquis] 5 mg PO BID #60 tab 03/16/23 Metoprolol Tartrate [Lopressor] 100 mg PO BID 30 Days #60 tab 03/17/23 Furosemide [Lasix] 20 mg PO DAILY tab 04/06/23 Mag Hydrox/Al Hydrox/Simeth 30 ml PO Q4HR PRN ml 04/06/23 [Maalox] ceFAZolin SODIUM [Cefazolin Sodium] 2 gm IJ Q8HR 35 Days #105 each 04/07/23 metroNIDAZOLE [Flagyl] 500 mg PO TID 35 Days #105 tab 04/07/23 Allergies Allergy/AdvReac Type Severity Reaction Status Date / Time Sulfa (Sulfonamide Allergy Rash/Hives Verified 03/26/23 12:39 Antibiotics) azithromycin [From Zithromax] AdvReac intercts Verified 03/26/23 12:39 w/Digoxin benzonatate AdvReac Gerd Verified 03/26/23 12:39 budesonide AdvReac Wheezing Verified 03/26/23 12:39 dexamethasone AdvReac Gerd Verified 03/26/23 12:39 doxycycline AdvReac Gerd Verified 03/26/23 12:39 fluticasone AdvReac Rapid Verified 03/26/23 12:39 Heart Rate, dizziness formoterol AdvReac Wheezing, Verified 03/26/23 12:39 [From [employer]] Dizziness, Rapid Heart Rate, High BP glycopyrrolate AdvReac Wheezing, Verified 03/26/23 12:39 [From [employer]] Dizziness, Rapid Heart Rate, High BP ipratropium AdvReac Rapid Verified 03/26/23 12:39 Heart Rate levalbuterol [From Xopenex] AdvReac Wheezing, Verified 03/26/23 12:39 Dizziness pravastatin sodium AdvReac Swelling Verified 03/26/23 12:39 [From Pravachol] and pain in legs prednisone AdvReac causes Verified 03/26/23 12:39 thrush ranitidine AdvReac Nausea & Verified 03/26/23 12:39 Vomiting & Diarrhea Review of Systems ROS Statement: Those systems with pertinent positive or pertinent negative responses have been documented in the HPI. ROS Other: All systems not noted in ROS Statement are negative. Past Medical History Past Medical History: Asthma, Coronary Artery Disease (CAD), Diabetes Mellitus, Deep Vein Thrombosis (DVT), GERD/Reflux, Hyperlipidemia, Osteoarthritis (OA) Additional Past Medical History / Comment(s): cardiomyopathy, elevated heart rate, overactive bladder, glaucoma, hx elevated sed rate,lelo knee pain-arthritis and elmore cyst, covid in 09/2022; left lower extremity DVT 02/2023 History of Any Multi-Drug Resistant Organisms: None Reported Past Surgical History: Appendectomy, Section, Coronary Bypass/CABG, Hysterectomy, Orthopedic Surgery Additional Past Surgical History / Comment(s): 3 left breast biopsies, 3 needle loc on right breast- pt states all benign. lelo rotator cuff repair, lelo. hammer toe and bunionectomy, trigger finger release lelo ring fingers, meniscus repair lelo knees, carpal tunnel lelo, rt thumb fusion, lt ankle surgery, D&C, bilateral cataract surgery and laser surgery, COLONOSCOPY , EGD WITH BIOPSY; 2 vessel cabg w/ mitral repair 03/02/23 Past Anesthesia/Blood Transfusion Reactions: No Reported Reaction Additional Past Anesthesia/Blood Transfusion Reaction / Comment(s): slow to wake up from anesthesia. Past Psychological History: No Psychological Hx Reported Smoking Status: Former smoker Past Alcohol Use History: None Reported Past Drug Use History: None Reported - Past Family History Mother History Unknown: Yes Family Medical History: Congestive Heart Failure (CHF), CVA/TIA, Hypertension Son(s) History Unknown: Yes Family Medical History: Deep Vein Thrombosis (DVT) Additional Family Medical History / Comment(s): DVT IN LEG Father Family Medical History: Congestive Heart Failure (CHF), Hypertension General Exam Limitations: no limitations General appearance: alert, in no apparent distress Head exam: Present: atraumatic, normocephalic, normal inspection Eye exam: Present: normal appearance, PERRL, EOMI. Absent: scleral icterus, conjunctival injection, periorbital swelling ENT exam: Present: normal exam, mucous membranes moist Neck exam: Present: normal inspection. Absent: tenderness, meningismus, lymphadenopathy Respiratory exam: Present: normal lung sounds bilaterally. Absent: respiratory distress, wheezes, rales, rhonchi, stridor Cardiovascular Exam: Present: regular rate, normal rhythm, normal heart sounds. Absent: systolic murmur, diastolic murmur, rubs, gallop, clicks Neurological exam: Present: alert Course Vital Signs 04/12/23 04/12/23 11:12 14:06 Temperature 98.1 F Pulse Rate 100 89 Respiratory 18 18 Rate Blood Pressure 119/72 118/78 O2 Sat by Pulse 100 99 Oximetry Medical Decision Making - Medical Decision Making Was pt. sent in by a medical professional or institution (, PA, PRODUCTION OFFICER, urgent care, hospital, or [facility]...) When possible be specific @ -No Did you speak to anyone other than the patient for history (EMS, parent, family, police, friend...)? What history was obtained from this source @ -No Did you review nursing and triage notes (agree or disagree)? Why? @ -I reviewed and agree with nursing and triage notes Were old charts reviewed (outside hosp., previous admission, EMS record, old EKG, old radiological studies, urgent care reports/EKG's, [facility] records)? Report findings @ -Reviewed prior laboratory studies, chest x-ray and cardiothoracic Differential Diagnosis (chest pain, altered mental status, abdominal pain women, abdominal pain men, vaginal bleeding, weakness, fever, dyspnea, syncope, headache, dizziness, GI bleed, back pain, seizure, CVA, palpatations, mental health, musculoskeletal)? @ -nDifferential Dyspnea: Coronary syndrome, arrhythmia, tamponade, asthma, COPD, pulmonary embolism, pneumonia, pneumothorax, pulmonary effusion, anaphylaxis, diabetic ketoacidosis, flailed chest, pulmonary contusion, diaphragmatic rupture, anemia, neuromuscular, this is not meant to be an all-inclusive list. cable EKG interpreted by me (3pts min.). @ -As above X-rays interpreted by me (1pt min.). @ -Chest x-ray shows evidence of mild pulmonary edema CT interpreted by me (1pt min.). @ -None done U/S interpreted by me (1pt. min.). @ -None done What testing was considered but not performed or refused? (CT, X-rays, U/S, labs)? Why? @ -None What meds were considered but not given or refused? Why? @ -None Did you discuss the management of the patient with other professionals (professionals i.e. , JAVIER, PRODUCTION OFFICER, lab, RT, psych nurse, social worker aide, molding machine tender, teacher, control officer, case technician)? Give summary @ -Cardiothoracic Collins Degroot regarding patient's symptoms and current clinical findings Was smoking cessation discussed for >3mins.? @ -No Was critical care preformed (if so, how long)? @ -No Were there social determinants of health that impacted care today? How? (Homelessness, low income, unemployed, alcoholism, drug addiction, transportation, low edu. Level, literacy, decrease access to med. care, [place] [facility], rehab)? @ -No Was there de-escalation of care discussed even if they declined (Discuss DNR or withdrawal of care, Hospice)? DNR status @ -No What co-morbidities impacted this encounter? (DM, HTN, Smoking, COPD, CAD, Cancer, CVA, ARF, Chemo, Hep., AIDS, mental health diagnosis, sleep apnea, morbid obesity)? @ -None Was patient admitted / discharged? Hospital course, mention meds given and route, prescriptions, significant lab abnormalities, going to OR and other pertinent info. @ -Discharged patient does have mild pulmonary edema no large pleural effusion patient fell are stable. I did discuss case with Collins degroot with cardiothoracic in which the patient is stable for discharge advised follow-up in office. Patient did receive her infusion for IV antibiotics in the emergency department prior to discharge. Patient family updated and results. Undiagnosed new problem with uncertain prognosis? @ -No Drug Therapy requiring intensive monitoring for toxicity (Heparin, Nitro, Insulin, Cardizem)? @ -No Were any procedures done? @ -No Diagnosis/symptom? @ -[Dyspnea Acute, or Chronic, or Acute on Chronic? @ -Acute Uncomplicated (without systemic symptoms) or Complicated (systemic symptoms)? @ -Uncomplicated. Side effects of treatment? @ -No Exacerbation, Progression, or Severe Exacerbation? @ -No Poses a threat to life or bodily function? How? (Chest pain, USA, NH, pneumonia, PE, COPD, DKA, ARF, appy, cholecystitis, CVA, Diverticulitis, Homicidal, Suicidal, threat to staff... and all critical care pts) @ -No - Lab Data Result diagrams: 04/12/23 11:30 04/12/23 11:30 Lab Results 04/12/23 04/12/23 04/12/23 Range/Units 11:30 11:30 11:30 WBC 9.8 (3.8-10.6) k/uL RBC 3.62 L (3.80-5.40) m/uL Hgb 9.1 L (11.4-16.0) gm/dL Hct 30.1 L (34.0-46.0) % MCV 83.1 (80.0-100.0) fL MCH 25.2 (25.0-35.0) pg MCHC 30.3 L (31.0-37.0) g/dL RDW 15.7 H (11.5-15.5) % Plt Count 454 H (150-450) k/uL MPV 7.0 Neutrophils % 52 % Lymphocytes % 36 % Monocytes % 6 % Eosinophils % 2 % Basophils % 1 % Neutrophils # 5.1 (1.3-7.7) k/uL Lymphocytes # 3.5 (1.0-4.8) k/uL Monocytes # 0.6 (0-1.0) k/uL Eosinophils # 0.2 (0-0.7) k/uL Basophils # 0.1 (0-0.2) k/uL Hypochromasia Marked Poikilocytosis Slight PT 11.1 (9.0-12.0) sec INR 1.1 (<1.2) APTT 22.6 (22.0-30.0) sec Sodium 136 L (137-145) mmol/L Potassium 4.1 (3.5-5.1) mmol/L Chloride 101 (98-107) mmol/L Carbon Dioxide 24 (22-30) mmol/L Anion Gap 11 mmol/L BUN 13 (7-17) mg/dL Creatinine 0.65 (0.52-1.04) mg/dL Est GFR (CKD-EPI)AfAm >90 (>60 ml/min/1.73 sqM) Est GFR (CKD-EPI)NonAf 87 (>60 ml/min/1.73 sqM) Glucose 99 (74-99) mg/dL Plasma Lactic Acid Cuco (0.7-2.0) mmol/L Calcium 9.3 (8.4-10.2) mg/dL Magnesium 1.5 L (1.6-2.3) mg/dL Total Bilirubin 0.3 (0.2-1.3) mg/dL AST 22 (14-36) U/L ALT 11 (4-34) U/L Alkaline Phosphatase 54 (38-126) U/L Troponin I (0.000-0.034) ng/mL NT-Pro-B Natriuret Pep pg/mL Total Protein 6.5 (6.3-8.2) g/dL Albumin 3.4 L (3.5-5.0) g/dL 04/12/23 04/12/23 04/12/23 Range/Units 11:30 11:30 11:30 WBC (3.8-10.6) k/uL RBC (3.80-5.40) m/uL Hgb (11.4-16.0) gm/dL Hct (34.0-46.0) % MCV (80.0-100.0) fL MCH (25.0-35.0) pg MCHC (31.0-37.0) g/dL RDW (11.5-15.5) % Plt Count (150-450) k/uL MPV Neutrophils % % Lymphocytes % % Monocytes % % Eosinophils % % Basophils % % Neutrophils # (1.3-7.7) k/uL Lymphocytes # (1.0-4.8) k/uL Monocytes # (0-1.0) k/uL Eosinophils # (0-0.7) k/uL Basophils # (0-0.2) k/uL Hypochromasia Poikilocytosis PT (9.0-12.0) sec INR (<1.2) APTT (22.0-30.0) sec Sodium (137-145) mmol/L Potassium (3.5-5.1) mmol/L Chloride (98-107) mmol/L Carbon Dioxide (22-30) mmol/L Anion Gap mmol/L BUN (7-17) mg/dL Creatinine (0.52-1.04) mg/dL Est GFR (CKD-EPI)AfAm (>60 ml/min/1.73 sqM) Est GFR (CKD-EPI)NonAf (>60 ml/min/1.73 sqM) Glucose (74-99) mg/dL Plasma Lactic Acid Cuco 1.6 (0.7-2.0) mmol/L Calcium (8.4-10.2) mg/dL Magnesium (1.6-2.3) mg/dL Total Bilirubin (0.2-1.3) mg/dL AST (14-36) U/L ALT (4-34) U/L Alkaline Phosphatase (38-126) U/L Troponin I <0.012 (0.000-0.034) ng/mL NT-Pro-B Natriuret Pep 1020 pg/mL Total Protein (6.3-8.2) g/dL Albumin (3.5-5.0) g/dL Disposition Clinical Impression: Dyspnea, S/P CABG (coronary artery bypass graft), Pulmonary edema Disposition: HOME SELF-CARE Condition: Stable Instructions (If sedation given, give patient instructions): Dyspnea (ED) Additional Instructions: Please return to the Emergency Department if symptoms worsen or any other concerns. Is patient prescribed a controlled substance at d/c from ED?: No Referrals: Magnus Pearson MD [Primary Care Provider] - 1-2 days Time of Disposition: 13:19
[2023-04-12 11:55] LABS: Basophils # (A) 0.1 k/uL (0-0.2); Basophils % (A) 1 %; Eosinophils # (A) 0.2 k/uL (0-0.7); Eosinophils % (A) 2 %; HCT 30.1 % (34.0-46.0); HGB 9.1 gm/dL (11.4-16.0); Hypochromasia Marked; Lymphocytes # (A) 3.5 k/uL (1.0-4.8); Lymphocytes % (A) 36 %; MCH 25.2 pg (25.0-35.0); MCHC 30.3 g/dL (31.0-37.0); MCV 83.1 fL (80.0-100.0); Monocytes # (A) 0.6 k/uL (0-1.0); Monocytes % (A) 6 %; Neutrophils # (A) 5.1 k/uL (1.3-7.7); Neutrophils % (A) 52 %; Platelet Count 454 k/uL (150-450); Poikilocytosis Slight; RBC 3.62 m/uL (3.80-5.40); RDW 15.7 % (11.5-15.5); WBC 9.8 k/uL (3.8-10.6)
[2023-04-12 12:15] LABS: ALT 11 U/L (4-34); AST 22 U/L (14-36); African American GFR (CKD) >90 (>60 ml/min/1.73 sqM); Albumin 3.4 g/dL (3.5-5.0); Alkaline Phosphatase 54 U/L (38-126); Anion Gap 11 mmol/L; Blood Urea Nitrogen 13 mg/dL (7-17); Calcium 9.3 mg/dL (8.4-10.2); Carbon Dioxide 24 mmol/L (22-30); Chloride 101 mmol/L (98-107); Glucose 99 mg/dL (74-99); Magnesium 1.5 mg/dL (1.6-2.3); Non-African American GFR(CKD) 87 (>60 ml/min/1.73 sqM); Potassium 4.1 mmol/L (3.5-5.1); Sodium 136 mmol/L (137-145); Total Bilirubin 0.3 mg/dL (0.2-1.3); Total Protein 6.5 g/dL (6.3-8.2)
[2023-04-12 12:30] LABS: INR 1.1 (<1.2); Partial Thromboplastin Time 22.6 sec (22.0-30.0); Prothrombin Time 11.1 sec (9.0-12.0)
--- NOTE | 2023-04-12 12:38 | XR ---
EXAMINATION TYPE: XR chest 2V DATE OF EXAM: 04/12/2023 12:09 PM COMPARISON: Chest radiographs from at 1523 TECHNIQUE: XR chest 2V Frontal and lateral views of the chest. CLINICAL INDICATION:Female, 78 years old with history of difficulty breathing; FINDINGS: Lungs/Pleura: There is no evidence of pleural effusion, focal consolidation, or pneumothorax. Pulmonary vascularity: Pulmonary vascular congestion. Heart/mediastinum: Cardiomediastinal silhouette is enlarged and stable. Post valve repair changes. L eft atrial appendage occlusion device is present. Musculoskeletal: No acute osseous pathology. Midline sternotomy wires are noted. IMPRESSION: Cardiomegaly, pulmonary vascular congestion and bilateral pleural effusions. Correlate with BNP for c ongestive heart failure.
[2023-04-12] MEDS ORDERED: FUROSEMIDE 10 MG/ML 2 ML VIAL IV ONE (13:39)
[2023-04-12 14:07] VITALS: BP 118/78; PULSE 89
== END 2023-04-12 14:50 | disposition home or self-care (01) ==
LOC: EC 10:53
DX: Z95.1 Presence of aortocoronary bypass graft (principal); R06.00 Dyspnea, unspecified; J81.1 Chronic pulmonary edema; J90 Pleural effusion, not elsewhere classified; I42.9 Cardiomyopathy, unspecified; J45.909 Unspecified asthma, uncomplicated; I25.10 Atherosclerotic heart disease of native coronary artery without angina pectoris; E11.9 Type 2 diabetes mellitus without complications; E78.5 Hyperlipidemia, unspecified; M19.90 Unspecified osteoarthritis, unspecified site; Z87.891 Personal history of nicotine dependence; Z79.1 Long term (current) use of non-steroidal anti-inflammatories (NSAID); Z79.899 Other long term (current) drug therapy; Z79.84 Long term (current) use of oral hypoglycemic drugs; Z88.8 Allergy status to other drugs, medicaments and biological substances; Z88.2 Allergy status to sulfonamides; Z88.1 Allergy status to other antibiotic agents; Z86.16 Personal history of COVID-19
CPT/HCPCS: 36415; 93005; 83880; 80053; 83605; 83735; 84484; 85025; 85610; 85730; 71046; 99285; 96365; 96375; J1940; J0690

== ENCOUNTER 2023-04-18 11:31 | Emergency (ER) | payer MEDICARE, MEDICAID ==
[2023-04-18 11:43] VITALS: TEMP 98.2
[2023-04-18 12:55] LABS: Basophils % (A) 1 %; Eosinophils # (A) 0.1 k/uL (0-0.7); Eosinophils % (A) 2 %; HCT 30.4 % (34.0-46.0); HGB 9.2 gm/dL (11.4-16.0); Hypochromasia Marked; Lymphocytes # (A) 2.6 k/uL (1.0-4.8); Lymphocytes % (A) 32 %; MCH 24.5 pg (25.0-35.0); MCHC 30.3 g/dL (31.0-37.0); Mean Platelet Volume 7.8; Monocytes # (A) 0.6 k/uL (0-1.0); Monocytes % (A) 7 %; Neutrophils # (A) 4.5 k/uL (1.3-7.7); Neutrophils % (A) 56 %; Platelet Count 378 k/uL (150-450); Poikilocytosis Slight; RBC 3.75 m/uL (3.80-5.40); RDW 15.4 % (11.5-15.5)
[2023-04-18 13:34] LABS: Albumin 3.4 g/dL (3.5-5.0); Calcium 9.3 mg/dL (8.4-10.2); Total Bilirubin 0.4 mg/dL (0.2-1.3); Total Protein 6.7 g/dL (6.3-8.2)
[2023-04-18 16:08] VITALS: BP 115/54; PULSE 82; RESP 18
--- NOTE | 2023-04-18 16:08 | US ---
EXAMINATION TYPE: US venous doppler duplex LE LT DATE OF EXAM: 04/18/2023 3:32 PM COMPARISON: NONE CLINICAL INDICATION: Female, 78 years old with history of swelling, hx dvt; edema hx of dvt on blood thinners. SIDE PERFORMED: Left TECHNIQUE: The lower extremity deep venous system is examined utilizing real time linear array sonog molly with graded compression, doppler sonography and color-flow sonography. VESSELS IMAGED: Common Femoral Vein Deep Femoral Vein Greater Saphenous Vein * Femoral Vein Popliteal Vein Small Saphenous Vein * Proximal Calf Veins (* superficial vessels) Left Leg: Negative for DVT IMPRESSION: Grayscale, color doppler, spectral doppler imaging performed of the deep veins of the lo wer extremities. There is normal flow, compressibility, vascular waveforms.
[2023-04-18] MEDS ORDERED: MUPIROCIN 2% OINT 22 GM TUBE TOPICAL STA (16:19)
--- NOTE | 2023-04-18 16:25 | ED ---
General Adult HPI - General Chief complaint: Skin/Abscess/Foreign Body Stated complaint: Recheck Time Seen by Provider: 04/18/23 11:46 Source: patient, family, RN notes reviewed Mode of arrival: wheelchair Limitations: no limitations - History of Present Illness Initial comments: 78-year-old female presents to the emergency department with chief complaint of redness around an incision site on her left leg 2 days. Patient reports that she underwent a bypass on and had infection of her surgical site on her chest. She has been on oral Flagyl since and also has a PICC line and has been receiving IV cefazolin daily at the infusion center. She states that she did have a DVT in the left leg and is currently on blood thinners. Denies fevers, chills, chest pain, shortness of breath. - Related Data Home Medications Medication Instructions Recorded Confirmed Rosuvastatin Calcium [Crestor] 5 mg PO DAILY 07/16/14 03/26/23 Solifenacin Succinate [Vesicare] 10 mg PO HS 07/16/14 03/26/23 Latanoprost Ophth [Xalatan 0.005%] 1 drop BOTH EYES HS 08/17/17 03/26/23 Carboxymethylcellulose Sodium 1 drop BOTH EYES TID PRN 11/16/22 03/26/23 [Refresh Tears] Multivit with Calcium,Iron,Min 1 tab PO DAILY 11/16/22 03/26/23 [Women's Multivitamin] Ascorbic Acid [Vitamin C] 500 mg PO DAILY 12/03/22 03/26/23 Sennosides-Docusate Sodium 2 tab PO HS PRN 03/15/23 03/26/23 [Senokot-S] predniSONE 10 mg PO DAILY 03/15/23 03/26/23 Previous Rx's Medication Instructions Recorded Albuterol Inhaler [Ventolin Hfa 2 puff INHALATION RT-QID PRN each 01/16/23 Inhaler] Acetaminophen [Tylenol Extra 500 mg PO Q4HR PRN #0 03/11/23 Strength] Aspirin 325 mg PO DAILY #30 tab 03/11/23 Losartan [Cozaar] 50 mg PO DAILY #30 tab 03/11/23 Pantoprazole [Protonix] 40 mg PO AC-BRKFST #30 tab 03/11/23 Spironolactone [Aldactone] 25 mg PO DAILY #30 tab 03/11/23 metFORMIN HCL [Glucophage] 500 mg PO BID #60 tab 03/11/23 Apixaban [Eliquis] 5 mg PO BID #60 tab 03/16/23 Metoprolol Tartrate [Lopressor] 100 mg PO BID 30 Days #60 tab 03/17/23 Furosemide [Lasix] 20 mg PO DAILY tab 04/06/23 Mag Hydrox/Al Hydrox/Simeth 30 ml PO Q4HR PRN ml 04/06/23 [Maalox] ceFAZolin SODIUM [Cefazolin Sodium] 2 gm IJ Q8HR 35 Days #105 each 04/07/23 metroNIDAZOLE [Flagyl] 500 mg PO TID 35 Days #105 tab 04/07/23 Mupirocin 2% Oint [Bactroban 2% 1 applic TOPICAL TID #22 gm 04/18/23 Oint] Allergies Allergy/AdvReac Type Severity Reaction Status Date / Time Sulfa (Sulfonamide Allergy Rash/Hives Verified 04/18/23 11:43 Antibiotics) azithromycin [From Zithromax] AdvReac intercts Verified 04/18/23 11:43 w/Digoxin benzonatate AdvReac Gerd Verified 04/18/23 11:43 budesonide AdvReac Wheezing Verified 04/18/23 11:43 dexamethasone AdvReac Gerd Verified 04/18/23 11:43 doxycycline AdvReac Gerd Verified 04/18/23 11:43 fluticasone AdvReac Rapid Verified 04/18/23 11:43 Heart Rate, dizziness formoterol AdvReac Wheezing, Verified 04/18/23 11:43 [From [employer]] Dizziness, Rapid Heart Rate, High BP glycopyrrolate AdvReac Wheezing, Verified 04/18/23 11:43 [From [employer]] Dizziness, Rapid Heart Rate, High BP ipratropium AdvReac Rapid Verified 04/18/23 11:43 Heart Rate levalbuterol [From Xopenex] AdvReac Wheezing, Verified 04/18/23 11:43 Dizziness pravastatin sodium AdvReac Swelling Verified 04/18/23 11:43 [From Pravachol] and pain in legs prednisone AdvReac causes Verified 04/18/23 11:43 thrush ranitidine AdvReac Nausea & Verified 04/18/23 11:43 Vomiting & Diarrhea Review of Systems ROS Statement: Those systems with pertinent positive or pertinent negative responses have been documented in the HPI. ROS Other: All systems not noted in ROS Statement are negative. Past Medical History Past Medical History: Asthma, Coronary Artery Disease (CAD), Diabetes Mellitus, Deep Vein Thrombosis (DVT), GERD/Reflux, Hyperlipidemia, Osteoarthritis (OA) Additional Past Medical History / Comment(s): cardiomyopathy, elevated heart rate, overactive bladder, glaucoma, hx elevated sed rate,lelo knee pain-arthritis and elmore cyst, covid in 09/2022; left lower extremity DVT 02/2023 History of Any Multi-Drug Resistant Organisms: None Reported Past Surgical History: Appendectomy, Section, Coronary Bypass/CABG, Hysterectomy, Orthopedic Surgery Additional Past Surgical History / Comment(s): 3 left breast biopsies, 3 needle loc on right breast- pt states all benign. lelo rotator cuff repair, lelo. hammer toe and bunionectomy, trigger finger release lelo ring fingers, meniscus repair lelo knees, carpal tunnel lelo, rt thumb fusion, lt ankle surgery, D&C, bilateral cataract surgery and laser surgery, COLONOSCOPY , EGD WITH BIOPSY; 2 vessel cabg w/ mitral repair 03/02/23 Past Anesthesia/Blood Transfusion Reactions: No Reported Reaction Additional Past Anesthesia/Blood Transfusion Reaction / Comment(s): slow to wake up from anesthesia. Past Psychological History: No Psychological Hx Reported Smoking Status: Former smoker Past Alcohol Use History: None Reported Past Drug Use History: None Reported - Past Family History Mother History Unknown: Yes Family Medical History: Congestive Heart Failure (CHF), CVA/TIA, Hypertension Son(s) History Unknown: Yes Family Medical History: Deep Vein Thrombosis (DVT) Additional Family Medical History / Comment(s): DVT IN LEG Father Family Medical History: Congestive Heart Failure (CHF), Hypertension General Exam Limitations: no limitations General appearance: alert, in no apparent distress Head exam: Present: atraumatic, normocephalic, normal inspection Eye exam: Present: normal appearance ENT exam: Present: normal exam, mucous membranes moist Neck exam: Present: normal inspection. Absent: tenderness, meningismus, lymphadenopathy Respiratory exam: Present: normal lung sounds bilaterally, other (Incision from bypass surgery healing well) Cardiovascular Exam: Present: regular rate, normal rhythm, normal heart sounds. Absent: systolic murmur, diastolic murmur, rubs, gallop, clicks GI/Abdominal exam: Present: soft, normal bowel sounds. Absent: distended, tenderness, guarding, rebound, rigid Extremities exam: Present: other (Mild erythema around the incision site on the left leg where the graft was obtained for her bypass) Back exam: Present: normal inspection Neurological exam: Present: alert, oriented X3 Psychiatric exam: Present: normal affect, normal mood Skin exam: Present: warm, dry Course Vital Signs 04/18/23 04/18/23 11:40 16:00 Temperature 98.2 F Pulse Rate 104 H 82 Respiratory 20 18 Rate Blood Pressure 113/73 115/54 O2 Sat by Pulse 100 99 Oximetry Medical Decision Making - Medical Decision Making Was pt. sent in by a medical professional or institution (Dr. PA, OPTICAL LAB TECHNICIAN, urgent care, hospital, or senior care...) When possible be specific @ -No Did you speak to anyone other than the patient for history (EMS, parent, family, police, friend...)? What history was obtained from this source @ -No Did you review nursing and triage notes (agree or disagree)? Why? @ -I reviewed and agree with nursing and triage notes Were old charts reviewed (outside hosp., previous admission, EMS record, old EKG, old radiological studies, urgent care reports/EKG's, senior care records)? Report findings @ -No old charts were reviewed Differential Diagnosis (chest pain, altered mental status, abdominal pain women, abdominal pain men, vaginal bleeding, weakness, fever, dyspnea, syncope, headache, dizziness, GI bleed, back pain, seizure, CVA, palpatations, mental health, musculoskeletal)? @ -Surgical site infection, cellulitis, DVT, this list is not all-inclusive EKG interpreted by me (3pts min.). @ -None X-rays interpreted by me (1pt min.). @ -None done CT interpreted by me (1pt min.). @ -None done U/S interpreted by me (1pt. min.). @ -Ultrasound of the left lower extremity showed no evidence of DVT What testing was considered but not performed or refused? (CT, X-rays, U/S, labs)? Why? @ -None What meds were considered but not given or refused? Why? @ -None Did you discuss the management of the patient with other professionals (professionals i.e. , PA, OPTICAL LAB TECHNICIAN, lab, RT, psych nurse, social service agency director, commercial reporter, teacher, gift officer, telephonic nurse case manager)? Give summary @ -No Was smoking cessation discussed for >3mins.? @ -No Was critical care preformed (if so, how long)? @ -No Were there social determinants of health that impacted care today? How? (Homelessness, low income, unemployed, alcoholism, drug addiction, transportation, low edu. Level, literacy, decrease access to med. care, fpc, rehab)? @ -No Was there de-escalation of care discussed even if they declined (Discuss DNR or withdrawal of care, Hospice)? DNR status @ -No What co-morbidities impacted this encounter? (DM, HTN, Smoking, COPD, CAD, Cancer, CVA, ARF, Chemo, Hep., AIDS, mental health diagnosis, sleep apnea, morbid obesity)? @ -CAD Was patient admitted / discharged? Hospital course, mention meds given and route, prescriptions, significant lab abnormalities, going to [place] and other [facility] [place] info. @ -Discharge. Patient presented to emergency department with chief complaint of redness around her surgical site on the left leg. Patient denies fevers, chills. Patient has a history of DVT in the left leg and ultrasound was obtained which showed no areas of DVT at this time. CBC and CMP were obtained which CBC showed 30 CVA 0.0, hemoglobin 9.2, hematocrit 30.4 similar to her baseline CMP showed sodium 135, potassium 4.0. patient was assessed by my attending, Dr. Tejada who recommended patient continue with her IV infusions of cefazolin at the infusion clinic and continue with her blood thinners. Patient was advised on return precautions and advised to return if symptoms do not start to improve in the next 1-2 days or she begins to develop fever. Undiagnosed new problem with uncertain prognosis? @ -No Drug Therapy requiring intensive monitoring for toxicity (Heparin, Nitro, Insulin, Cardizem)? @ -No Were any procedures done? @ -No Diagnosis/symptom? @ -Cellulitis Acute, or Chronic, or Acute on Chronic? @ -Acute Uncomplicated (without systemic symptoms) or Complicated (systemic symptoms)? @ -Uncomplicated Side effects of treatment? @ -No Exacerbation, Progression, or Severe Exacerbation? @ -No Poses a threat to life or bodily function? How? (Chest pain, [place], HI, pneumonia, PE, COPD, DKA, ARF, appy, cholecystitis, CVA, Diverticulitis, Homicidal, Suicidal, threat to staff... and all critical care pts) @ -No - Lab Data Result diagrams: 04/18/23 12:46 04/18/23 12:46 Lab Results 04/18/23 04/18/23 Range/Units 12:46 12:46 WBC 8.0 (3.8-10.6) k/uL RBC 3.75 L (3.80-5.40) m/uL Hgb 9.2 L (11.4-16.0) gm/dL Hct 30.4 L (34.0-46.0) % MCV 81.0 (80.0-100.0) fL MCH 24.5 L (25.0-35.0) pg MCHC 30.3 L (31.0-37.0) g/dL RDW 15.4 (11.5-15.5) % Plt Count 378 (150-450) k/uL MPV 7.8 Neutrophils % 56 % Lymphocytes % 32 % Monocytes % 7 % Eosinophils % 2 % Basophils % 1 % Neutrophils # 4.5 (1.3-7.7) k/uL Lymphocytes # 2.6 (1.0-4.8) k/uL Monocytes # 0.6 (0-1.0) k/uL Eosinophils # 0.1 (0-0.7) k/uL Basophils # 0.0 (0-0.2) k/uL Hypochromasia Marked Poikilocytosis Slight Sodium 135 L (137-145) mmol/L Potassium 4.0 (3.5-5.1) mmol/L Chloride 99 (98-107) mmol/L Carbon Dioxide 27 (22-30) mmol/L Anion Gap 9 mmol/L BUN 17 (7-17) mg/dL Creatinine 0.78 (0.52-1.04) mg/dL Est GFR (CKD-EPI)AfAm 86 (>60 ml/min/1.73 sqM) Est GFR (CKD-EPI)NonAf 74 (>60 ml/min/1.73 sqM) Glucose 109 H (74-99) mg/dL Calcium 9.3 (8.4-10.2) mg/dL Total Bilirubin 0.4 (0.2-1.3) mg/dL AST 23 (14-36) U/L ALT 14 (4-34) U/L Alkaline Phosphatase 56 (38-126) U/L Total Protein 6.7 (6.3-8.2) g/dL Albumin 3.4 L (3.5-5.0) g/dL Disposition Clinical Impression: Cellulitis Disposition: HOME SELF-CARE Condition: Stable Additional Instructions: Please continue oral antibiotics and apply topical ointment to the site 3 times a day. Follow-up with Dr. Arzate and your primary care physician. If you do not see improvement or the area worsens in the next 1-2 days, please return to the emergency department. Prescriptions: Mupirocin 2% Oint [Bactroban 2% Oint] 1 applic TOPICAL TID #22 gm Is patient prescribed a controlled substance at d/c from ED?: No Referrals: Magnus Pearson MD [Primary Care Provider] - 1-2 days Time of Disposition: 16:25
== END 2023-04-18 16:45 | disposition home or self-care (01) ==
LOC: EC 11:31
DX: L03.116 Cellulitis of left lower limb (principal); J45.909 Unspecified asthma, uncomplicated; I25.10 Atherosclerotic heart disease of native coronary artery without angina pectoris; E11.9 Type 2 diabetes mellitus without complications; E78.5 Hyperlipidemia, unspecified; M19.90 Unspecified osteoarthritis, unspecified site; Z79.1 Long term (current) use of non-steroidal anti-inflammatories (NSAID); Z79.899 Other long term (current) drug therapy; Z87.891 Personal history of nicotine dependence; Z88.2 Allergy status to sulfonamides; Z88.6 Allergy status to analgesic agent; Z88.8 Allergy status to other drugs, medicaments and biological substances
CPT/HCPCS: 36415; 80053; 85025; 99284

== ENCOUNTER 2023-04-24 15:03 | Emergency (ER) | payer MEDICARE, MEDICAID ==
--- NOTE | 2023-04-24 15:12 | ED ---
Chest Pain HPI - General Chief Complaint: Chest Pain Stated Complaint: CHEST PAIN-SOB Time Seen by Provider: 04/24/23 15:08 Source: patient Mode of arrival: wheelchair Limitations: no limitations - History of Present Illness Initial Comments: This is a 78 show female to the ER for evaluation. Patient's well-known to this emergency department. She is complaining of chest pain today. Patient has recent complicated history heart history with heart surgery bypass and infection, as well as persistent chest pain. No fevers no cough no congestion shortness of breath with exertion is positive. MD Complaint: chest pain, other (Asphalt pain and tenderness) -: days(s) Onset: during rest, during exertion Pain Location: substernal Severity: moderate Severity scale (1-10): 6 Quality: sharp Consistency: constant Improves With: nothing Worsens With: nothing Context: recent illness, recent surgery Anginal Symptoms: nausea Other Symptoms: palpitations Treatments Prior to Arrival: none - Related Data Home Medications Medication Instructions Recorded Confirmed Rosuvastatin Calcium [Crestor] 5 mg PO DAILY 07/16/14 04/24/23 Solifenacin Succinate [Vesicare] 10 mg PO HS 07/16/14 04/24/23 Latanoprost Ophth [Xalatan 0.005%] 1 drop BOTH EYES HS 08/17/17 04/24/23 Carboxymethylcellulose Sodium 1 drop BOTH EYES TID PRN 11/16/22 04/24/23 [Refresh Tears] Multivit with Calcium,Iron,Min 1 tab PO DAILY 11/16/22 04/24/23 [Women's Multivitamin] Ascorbic Acid [Vitamin C] 500 mg PO DAILY 12/03/22 04/24/23 Sennosides-Docusate Sodium 2 tab PO HS PRN 03/15/23 04/24/23 [Senokot-S] predniSONE 10 mg PO DAILY 03/15/23 04/24/23 Previous Rx's Medication Instructions Recorded Albuterol Inhaler [Ventolin Hfa 2 puff INHALATION RT-QID PRN each 01/16/23 Inhaler] Acetaminophen [Tylenol Extra 500 mg PO Q4HR PRN #0 03/11/23 Strength] Aspirin 325 mg PO DAILY #30 tab 03/11/23 Losartan [Cozaar] 50 mg PO DAILY #30 tab 04/19/23 Pantoprazole [Protonix] 40 mg PO AC-BRKFST #30 tab 03/11/23 Spironolactone [Aldactone] 25 mg PO DAILY #30 tab 03/11/23 metFORMIN HCL [Glucophage] 500 mg PO BID #60 tab 03/11/23 Apixaban [Eliquis] 5 mg PO BID #60 tab 03/16/23 Metoprolol Tartrate [Lopressor] 100 mg PO BID 30 Days #60 tab 03/17/23 Furosemide [Lasix] 20 mg PO DAILY tab 04/06/23 Mag Hydrox/Al Hydrox/Simeth 30 ml PO Q4HR PRN ml 04/06/23 [Maalox] ceFAZolin SODIUM [Cefazolin Sodium] 2 gm IJ Q8HR 35 Days #105 each 04/07/23 metroNIDAZOLE [Flagyl] 500 mg PO TID 35 Days #105 tab 04/07/23 Mupirocin 2% Oint [Bactroban 2% 1 applic TOPICAL TID #22 gm 04/18/23 Oint] Allergies Allergy/AdvReac Type Severity Reaction Status Date / Time Sulfa (Sulfonamide Allergy Rash/Hives Verified 04/24/23 17:33 Antibiotics) azithromycin [From Zithromax] AdvReac intercts Verified 04/24/23 17:33 w/Digoxin benzonatate AdvReac Gerd Verified 04/24/23 17:33 budesonide AdvReac Wheezing Verified 04/24/23 17:33 dexamethasone AdvReac Gerd Verified 04/24/23 17:33 doxycycline AdvReac Gerd Verified 04/24/23 17:33 fluticasone AdvReac Rapid Verified 04/24/23 17:33 Heart Rate, dizziness formoterol AdvReac Wheezing, Verified 04/24/23 17:33 [From [employer]] Dizziness, Rapid Heart Rate, High BP glycopyrrolate AdvReac Wheezing, Verified 04/24/23 17:33 [From Foods You Can] Dizziness, Rapid Heart Rate, High BP ipratropium AdvReac Rapid Verified 04/24/23 17:33 Heart Rate levalbuterol [From Xopenex] AdvReac Wheezing, Verified 04/24/23 17:33 Dizziness pravastatin sodium AdvReac Swelling Verified 04/24/23 17:33 [From Pravachol] and pain in legs prednisone AdvReac causes Verified 04/24/23 17:33 thrush ranitidine AdvReac Nausea & Verified 04/24/23 17:33 Vomiting & Diarrhea Review of Systems ROS Statement: Those systems with pertinent positive or pertinent negative responses have been documented in the HPI. ROS Other: All systems not noted in ROS Statement are negative. EKG Findings - EKG Comments: EKG Findings:: EKG sinus tachycardia 100 PA 180 QRS 150 QTC 410 Past Medical History Past Medical History: Asthma, Coronary Artery Disease (CAD), Diabetes Mellitus, Deep Vein Thrombosis (DVT), GERD/Reflux, Hyperlipidemia, Osteoarthritis (OA) Additional Past Medical History / Comment(s): cardiomyopathy, elevated heart rate, overactive bladder, glaucoma, hx elevated sed rate,lelo knee pain-arthritis and elmore cyst, covid in 09/2022; left lower extremity DVT 02/2023 History of Any Multi-Drug Resistant Organisms: None Reported Past Surgical History: Appendectomy, Section, Coronary Bypass/CABG, Hysterectomy, Orthopedic Surgery Additional Past Surgical History / Comment(s): 3 left breast biopsies, 3 needle loc on right breast- pt states all benign. lelo rotator cuff repair, lelo. hammer toe and bunionectomy, trigger finger release lelo ring fingers, meniscus repair lelo knees, carpal tunnel lelo, rt thumb fusion, lt ankle surgery, D&C, bilateral cataract surgery and laser surgery, COLONOSCOPY , EGD WITH BIOPSY; 2 vessel cabg w/ mitral repair 03/02/23 Past Anesthesia/Blood Transfusion Reactions: No Reported Reaction Additional Past Anesthesia/Blood Transfusion Reaction / Comment(s): slow to wake up from anesthesia. Past Psychological History: No Psychological Hx Reported Smoking Status: Former smoker Past Alcohol Use History: None Reported Past Drug Use History: None Reported - Past Family History Mother History Unknown: Yes Family Medical History: Congestive Heart Failure (CHF), CVA/TIA, Hypertension Son(s) History Unknown: Yes Family Medical History: Deep Vein Thrombosis (DVT) Additional Family Medical History / Comment(s): DVT IN LEG Father Family Medical History: Congestive Heart Failure (CHF), Hypertension General Exam - General Exam Comments Initial Comments: Chest wall tenderness Limitations: no limitations General appearance: alert, in no apparent distress Head exam: Present: atraumatic, normocephalic, normal inspection Eye exam: Present: normal appearance, PERRL, EOMI. Absent: scleral icterus, conjunctival injection, periorbital swelling ENT exam: Present: normal exam, mucous membranes moist Neck exam: Present: normal inspection. Absent: tenderness, meningismus, lymphadenopathy Respiratory exam: Present: normal lung sounds bilaterally. Absent: respiratory distress, wheezes, rales, rhonchi, stridor Cardiovascular Exam: Present: regular rate, normal rhythm, normal heart sounds. Absent: systolic murmur, diastolic murmur, rubs, gallop, clicks GI/Abdominal exam: Present: soft, normal bowel sounds. Absent: distended, tenderness, guarding, rebound, rigid Extremities exam: Present: normal inspection, full ROM, normal capillary refill. Absent: tenderness, pedal edema, joint swelling, calf tenderness Back exam: Present: normal inspection Neurological exam: Present: alert, oriented X3, CN II-XII intact Psychiatric exam: Present: normal affect, normal mood Skin exam: Present: warm, dry, intact, normal color. Absent: rash Course Vital Signs 04/24/23 04/24/23 15:03 18:42 Temperature 98.3 F 98.1 F Pulse Rate 96 98 Respiratory 20 18 Rate Blood Pressure 128/75 124/79 O2 Sat by Pulse 100 97 Oximetry - Reevaluation(s) Reevaluation #1: 04/24/23 16:49 Medical record is reviewed Reevaluation #2: 04/24/23 16:49 Patient's pain is controlled Reevaluation #3: 04/24/23 16:49 Patient informed of results questions answered Reevaluation #4: 04/24/23 21:08 Was pt. sent in by a medical professional or institution? @ -no Did you speak to anyone other than the patient for history? @ -no Did you review nursing and triage notes? @ -agree Were old charts reviewed? @ -patient in patient hospital admission is reviewed including catheterization report and prior lab values including troponin Differential Diagnosis? @ -prior EKG interpreted by me (3pts min.)? @ -yes X-rays interpreted by me (1pt min.)? @ -yes CT interpreted by me (1pt min.)? @ -no U/S interpreted by me (1pt. min.)? @ -no What testing was considered but not performed? (CT, X-rays, U/S, labs)? Why? @ -no What meds were considered but not given? Why? @ -no Did you discuss the management of the patient with other professionals? @ -no Did you reconcile home meds? @ -no Was smoking cessation discussed for >3mins.? @ -no Was critical care preformed (if so, how long)? @ -no Were there social determinants of health that impacted care today? How? (Homel essness, low income, unemployed, alcoholism, drug addiction, transportation, low edu. Level, literacy, decrease access to med. care, correction, rehab)? @ -no Was there de-escalation of care discussed even if they declined? (Discuss DNR or withdrawal of care, Hospice)? @ -no What co-morbidities impacted this encounter? (DM, HTN, Smoking, COPD, CAD, Cancer, CVA, Hep., AIDS, mental health diagnosis, sleep apnea, morbid obesity)? @ -none Was patient admitted / discharged? @ -78 female to the emergency department for evaluation of chest pain postoperative chest pain recent CABG surgery. Patient has no significant abnormalities here in the ER on EKG or lab values. Patient's chest pain is improved here and she can be discharged home Discharge Undiagnosed new problem with uncertain prognosis? @ -no Drug Therapy requiring intensive monitoring for toxicity (Heparin, Nitro, Insulin, Cardizem)? @ -no Were any procedures done? @ -no Diagnosis/symptom? @ -Chest pain recent CABG Acute, or Chronic, or Acute on Chronic? @ -no Uncomplicated (without systemic symptoms) or Complicated (systemic symptoms)? @ -uncomplicated Side effects of treatment? @ -no Exacerbation, Progression, or Severe Exacerbation] @ -no Poses a threat to life or bodily function? @ -yes he has compensation from [employer] or [employer] Reevaluation #5: Differential Chest Pain: Stable Angina, Unstable Angina, STEMI, NSTEMI Aortic Dissection, Pneumothorax, Musculoskeletal, Esophageal Spasm GERD, Cholecystitis, Pancreatitis, Zoster, this is not meant to be an all-inclusive list. Chest Pain MDM - MDM 78 female DF for evaluation. Patient will be discharged home with chest pain is improved here in the ER Disposition Clinical Impression: Atypical chest pain, Chest pain, Dyspnea, S/P CABG (coronary artery bypass graft) Disposition: HOME SELF-CARE Condition: Fair Is patient prescribed a controlled substance at d/c from ED?: No Time of Disposition: 16:40
[2023-04-24 15:52] LABS: Basophils % (A) 0 %; Eosinophils # (A) 0.1 k/uL (0-0.7); Eosinophils % (A) 1 %; HCT 31.5 % (34.0-46.0); HGB 9.8 gm/dL (11.4-16.0); Hypochromasia Marked; Lymphocytes # (A) 2.5 k/uL (1.0-4.8); Lymphocytes % (A) 26 %; MCH 24.8 pg (25.0-35.0); MCHC 31.1 g/dL (31.0-37.0); MCV 79.8 fL (80.0-100.0); Mean Platelet Volume 7.4; Monocytes # (A) 0.5 k/uL (0-1.0); Monocytes % (A) 5 %; Neutrophils # (A) 6.4 k/uL (1.3-7.7); Neutrophils % (A) 66 %; Platelet Count 417 k/uL (150-450); Poikilocytosis Slight; RBC 3.95 m/uL (3.80-5.40); RDW 15.7 % (11.5-15.5); WBC 9.7 k/uL (3.8-10.6)
[2023-04-24 16:13] LABS: Albumin 3.7 g/dL (3.5-5.0); Calcium 9.4 mg/dL (8.4-10.2); INR 1.1 (<1.2); Magnesium 1.9 mg/dL (1.6-2.3); Partial Thromboplastin Time 23.8 sec (22.0-30.0); Phosphorus 3.7 mg/dL (2.5-4.5); Potassium 4.3 mmol/L (3.5-5.1); Prothrombin Time 11.6 sec (9.0-12.0); Total Bilirubin 0.5 mg/dL (0.2-1.3); Total Protein 7.3 g/dL (6.3-8.2)
--- NOTE | 2023-04-24 16:14 | XR ---
EXAMINATION TYPE: XR chest 1V portable DATE OF EXAM: 04/24/2023 HISTORY: Shortness of breath. COMPARISON: 04/12/23 TECHNIQUE: Single view of the chest is submitted. FINDINGS: Demonstrated are scattered senescent parenchymal change. There is no evidence for focal infiltrate. The heart is stable. Hilar and mediastinal structures are within normal limits. Degenerative changes are seen of the dorsal spine. IMPRESSION: 1. Chronic changes without evidence for acute pulmonary disease.
[2023-04-24] MEDS ORDERED: MORPHINE SULFATE 4 MG/ML SYRINGE IV PRN (16:41)
[2023-04-24] MEDS ORDERED: ONDANSETRON 4 MG/2 ML VIAL IVP PRN (16:41)
[2023-04-24] MEDS ORDERED: NALOXONE 0.4 MG/ML 1 ML VIAL IV PRN (16:41)
[2023-04-24 18:44] VITALS: BP 124/79; PULSE 98; RESP 18; TEMP 98.1
== END 2023-04-24 19:56 | disposition home or self-care (01) ==
LOC: EC 15:03 → 6NMEDSUR 16:41 → UNDOADMOB 16:41 → 6NMEDSUR 17:23 → UNDODISOB 19:56 → EC 19:56
DX: I20.9 Angina pectoris, unspecified (principal); J45.909 Unspecified asthma, uncomplicated; I25.10 Atherosclerotic heart disease of native coronary artery without angina pectoris; Z95.1 Presence of aortocoronary bypass graft
CPT/HCPCS: 36415; 71045; 80053; 83605; 83735; 83880; 84100; 84484; 85025; 85610; 85730; 93005; 99285

== ENCOUNTER 2023-05-02 11:04 | Emergency (ER) | payer MEDICARE ==
--- NOTE | 2023-05-02 11:35 | ED ---
General Adult HPI - General Chief complaint: Shortness of Breath Stated complaint: SOB Time Seen by Provider: 05/02/23 11:10 Source: patient, RN notes reviewed, old records reviewed Mode of arrival: EMS Limitations: no limitations - History of Present Illness Initial comments: This is a 78-year-old female presents emergency Department complaining of dif ficulty breathing. Patient states she has a history of asthma. Patient states she had open heart surgery for a valve replacement in February. Patient states she has been having shortness of breath for the last 5 or 6 days. Patient states breathing treatments usually help but then it starts to get worse again so she takes a breathing treatment. Patient states it happened twice this morning and both times she took a breathing treatment she felt better and then EMS was called and they gave her breathing treatment and she feels better at this time and she is oxygenating at 100% currently. Patient denies any chest pain palpitations patient denies any recent fever chills or cough per patient denies headache patient denies numbness weakness. - Related Data Home Medications Medication Instructions Recorded Confirmed Rosuvastatin Calcium [Crestor] 5 mg PO DAILY 07/16/14 04/24/23 Solifenacin Succinate [Vesicare] 10 mg PO HS 07/16/14 04/24/23 Latanoprost Ophth [Xalatan 0.005%] 1 drop BOTH EYES HS 08/17/17 04/24/23 Carboxymethylcellulose Sodium 1 drop BOTH EYES TID PRN 11/16/22 04/24/23 [Refresh Tears] Multivit with Calcium,Iron,Min 1 tab PO DAILY 11/16/22 04/24/23 [Women's Multivitamin] Ascorbic Acid [Vitamin C] 500 mg PO DAILY 12/03/22 04/24/23 Sennosides-Docusate Sodium 2 tab PO HS PRN 03/15/23 04/24/23 [Senokot-S] predniSONE 10 mg PO DAILY 03/15/23 04/24/23 Previous Rx's Medication Instructions Recorded Albuterol Inhaler [Ventolin Hfa 2 puff INHALATION RT-QID PRN each 01/16/23 Inhaler] Acetaminophen [Tylenol Extra 500 mg PO Q4HR PRN #0 03/11/23 Strength] Aspirin 325 mg PO DAILY #30 tab 03/11/23 Losartan [Cozaar] 50 mg PO DAILY #30 tab 03/11/23 Pantoprazole [Protonix] 40 mg PO AC-BRKFST #30 tab 03/11/23 Spironolactone [Aldactone] 25 mg PO DAILY #30 tab 03/11/23 metFORMIN HCL [Glucophage] 500 mg PO BID #60 tab 03/11/23 Apixaban [Eliquis] 5 mg PO BID #60 tab 03/16/23 Metoprolol Tartrate [Lopressor] 100 mg PO BID 30 Days #60 tab 03/17/23 Furosemide [Lasix] 20 mg PO DAILY tab 04/06/23 Mag Hydrox/Al Hydrox/Simeth 30 ml PO Q4HR PRN ml 04/06/23 [Maalox] ceFAZolin SODIUM [Cefazolin Sodium] 2 gm IJ Q8HR 35 Days #105 each 04/07/23 metroNIDAZOLE [Flagyl] 500 mg PO TID 35 Days #105 tab 04/07/23 Mupirocin 2% Oint [Bactroban 2% 1 applic TOPICAL TID #22 gm 04/18/23 Oint] Allergies Allergy/AdvReac Type Severity Reaction Status Date / Time Sulfa (Sulfonamide Allergy Rash/Hives Verified 05/02/23 11:12 Antibiotics) azithromycin [From Zithromax] AdvReac intercts Verified 05/02/23 11:12 w/Digoxin benzonatate AdvReac Gerd Verified 05/02/23 11:12 budesonide AdvReac Wheezing Verified 05/02/23 11:12 dexamethasone AdvReac Gerd Verified 05/02/23 11:12 doxycycline AdvReac Gerd Verified 05/02/23 11:12 fluticasone AdvReac Rapid Verified 05/02/23 11:12 Heart Rate, dizziness formoterol AdvReac Wheezing, Verified 05/02/23 11:12 [From REEL Qualified] Dizziness, Rapid Heart Rate, High BP glycopyrrolate AdvReac Wheezing, Verified 05/02/23 11:12 [From REEL Qualified] Dizziness, Rapid Heart Rate, High BP ipratropium AdvReac Rapid Verified 05/02/23 11:12 Heart Rate levalbuterol [From Xopenex] AdvReac Wheezing, Verified 05/02/23 11:12 Dizziness pravastatin sodium AdvReac Swelling Verified 05/02/23 11:12 [From Pravachol] and pain in legs prednisone AdvReac causes Verified 05/02/23 11:12 thrush ranitidine AdvReac Nausea & Verified 05/02/23 11:12 Vomiting & Diarrhea Review of Systems ROS Statement: Those systems with pertinent positive or pertinent negative responses have been documented in the HPI. ROS Other: All systems not noted in ROS Statement are negative. Past Medical History Past Medical History: Asthma, Coronary Artery Disease (CAD), Diabetes Mellitus, Deep Vein Thrombosis (DVT), GERD/Reflux, Hyperlipidemia, Osteoarthritis (OA) Additional Past Medical History / Comment(s): cardiomyopathy, elevated heart rate, overactive bladder, glaucoma, hx elevated sed rate,lelo knee pain-arthritis and elmore cyst, covid in 09/2022; left lower extremity DVT 02/2023 History of Any Multi-Drug Resistant Organisms: None Reported Past Surgical History: Appendectomy, Section, Coronary Bypass/CABG, Hysterectomy, Orthopedic Surgery Additional Past Surgical History / Comment(s): 3 left breast biopsies, 3 needle loc on right breast- pt states all benign. lelo rotator cuff repair, lelo. hammer toe and bunionectomy, trigger finger release lelo ring fingers, meniscus repair lelo knees, carpal tunnel lelo, rt thumb fusion, lt ankle surgery, D&C, bilateral cataract surgery and laser surgery, COLONOSCOPY , EGD WITH BIOPSY; 2 vessel cabg w/ mitral repair 03/02/23 Past Anesthesia/Blood Transfusion Reactions: No Reported Reaction Additional Past Anesthesia/Blood Transfusion Reaction / Comment(s): slow to wake up from anesthesia. Past Psychological History: No Psychological Hx Reported Smoking Status: Former smoker Past Alcohol Use History: None Reported Past Drug Use History: None Reported - Past Family History Mother History Unknown: Yes Family Medical History: Congestive Heart Failure (CHF), CVA/TIA, Hypertension Son(s) History Unknown: Yes Family Medical History: Deep Vein Thrombosis (DVT) Additional Family Medical History / Comment(s): DVT IN LEG Father Family Medical History: Congestive Heart Failure (CHF), Hypertension General Exam - General Exam Comments Initial Comments: GENERAL: Patient is well-developed and well-nourished. Patient is nontoxic and well- hydrated and is in no acute distress. ENT: Neck is soft and supple. No significant lymphadenopathy is noted. Oropharynx is clear. Moist mucous membranes. Neck has full range of motion without eliciting any pain. EYES: The sclera were anicteric and conjunctiva were pink and moist. Extraocular movements were intact and pupils were equal round and reactive to light. Eyelids were unremarkable. PULMONARY: Unlabored respirations. Good breath sounds bilaterally. No audible rales rhonchi or wheezing was noted. CARDIOVASCULAR: There is a regular rate and rhythm without any murmurs gallops or rubs. ABDOMEN: Soft and nontender with normal bowel sounds. SKIN: Skin is clear with no lesions or rashes and otherwise unremarkable. NEUROLOGIC: Patient is alert and oriented x3. Cranial nerves II through XII are grossly int act. Motor and sensory are also intact. Normal speech, volume and content. Symmetrical smile. MUSCULOSKELETAL: Normal extremities with adequate strength and full range of motion. Scant edema bilateral legs LYMPHATICS: No significant lymphadenopathy is noted PSYCHIATRIC: Normal psychiatric evaluation. Limitations: no limitations Course Vital Signs 05/02/23 05/02/23 05/02/23 11:08 11:12 12:25 Temperature 97.7 F Pulse Rate 100 101 H Respiratory 20 20 16 Rate Blood Pressure 129/95 110/54 O2 Sat by Pulse 100 96 Oximetry Medical Decision Making - Medical Decision Making EKG was interpreted by myself shows a sinus tachycardia at 102 bpm TN interval 176 QRS of her 16 QT interval 343 QTC is 402. Patient's EKG shows no ST segment elevation however there is T-wave inversions in leads 1 to aVL and accordingly leads V5 and V6 Was pt. sent in by a medical professional or institution ([facility], [facility], urgent care, hospital, or [facility]...) When possible be specific @ -No Did you speak to anyone other than the patient for history (EMS, parent, family, police, friend...)? What history was obtained from this source @ -No Did you review nursing and triage notes (agree or disagree)? Why? @ -I reviewed and agree with nursing and triage notes Were old charts reviewed (outside hosp., previous admission, EMS record, old EKG, old radiological studies, urgent care reports/EKG's, [facility] records)? Report findings @ -. Prior radiological studies prior lab work from prior charts from admissions Differential Diagnosis (chest pain, altered mental status, abdominal pain women, abdominal pain men, vaginal bleeding, weakness, fever, dyspnea, syncope, headache, dizziness, GI bleed, back pain, seizure, CVA, palpatations, mental health, musculoskeletal)? @ -Differential Dyspnea: Coronary syndrome, arrhythmia, tamponade, asthma, COPD, pulmonary embolism, pneumonia, pneumothorax, pulmonary effusion, anaphylaxis, diabetic ketoacidosis, flailed chest, pulmonary contusion, diaphragmatic rupture, anemia, neuromuscular, this is not meant to be an all-inclusive list. EKG interpreted by me (3pts min.). @ -As above X-rays interpreted by me (1pt min.). @ -Chest x-ray shows no acute abnormality. CT interpreted by me (1pt min.). @ -CT of the chest shows no pulmonary embolism or acute expiration for dyspnea U/S interpreted by me (1pt. min.). @ -None done What testing was considered but not performed or refused? (CT, X-rays, U/S, labs)? Why? @ -None What meds were considered but not given or refused? Why? @ -None Did you discuss the management of the patient with other professionals (professionals i.e. , PA, [facility], lab, RT, psych nurse, social science teacher, tripper, teacher, aviation ordnance officer, rn case mgr)? Give summary @ -No Was smoking cessation discussed for >3mins.? @ -No Was critical care preformed (if so, how long)? @ -No Were there social determinants of health that impacted care today? How? (Homelessness, low income, unemployed, alcoholism, drug addiction, transportation, low edu. Level, literacy, decrease access to med. care, [facility], rehab)? @ -No Was there de-escalation of care discussed even if they declined (Discuss DNR or withdrawal of care, Hospice)? DNR status @ -No What co-morbidities impacted this encounter? (DM, HTN, Smoking, COPD, CAD, Cancer, CVA, ARF, Chemo, Hep., AIDS, mental health diagnosis, sleep apnea, morbid obesity)? @ -None Was patient admitted / discharged? Hospital course, mention meds given and route, prescriptions, significant lab abnormalities, going to OR and other pertinent info. @ -Patient came in and had used her inhaler twice and EMS gave her breathing treatment and she was feeling better was feeling better. she did not want to be admitted because she has an appointment on Thursday with Dr. Swift. Patient states she'll start using her nebulizer twice a day as opposed to the inhaler and will increase her steroids from 20 mg to 40 mg Undiagnosed new problem with uncertain prognosis? @ -No Drug Therapy requiring intensive monitoring for toxicity (Heparin, Nitro, Insulin, Cardizem)? @ -No Were any procedures done? @ -No Diagnosis/symptom? @ -Asthma exacerbation Acute, or Chronic, or Acute on Chronic? @ -Acute Uncomplicated (without systemic symptoms) or Complicated (systemic symptoms)? @ -Complicated Side effects of treatment? @ -No Exacerbation, Progression, or Severe Exacerbation? @ -No Poses a threat to life or bodily function? How? (Chest pain, [place], [place], pneumonia, PE, COPD, DKA, ARF, appy, cholecystitis, CVA, Diverticulitis, Homicidal, Suicidal, threat to staff... and all critical care pts) @ -No - Lab Data Result diagrams: 05/02/23 11:40 05/02/23 11:40 Lab Results 05/02/23 05/02/23 05/02/23 Range/Units 11:40 11:40 11:40 WBC 12.1 H (3.8-10.6) k/uL RBC 3.65 L (3.80-5.40) m/uL Hgb 8.6 L (11.4-16.0) gm/dL Hct 28.7 L (34.0-46.0) % MCV 78.6 L (80.0-100.0) fL MCH 23.6 L (25.0-35.0) pg MCHC 30.0 L (31.0-37.0) g/dL RDW 15.5 (11.5-15.5) % Plt Count 434 (150-450) k/uL MPV 7.5 Neutrophils % 67 % Lymphocytes % 21 % Monocytes % 6 % Eosinophils % 4 % Basophils % 0 % Neutrophils # 8.1 H (1.3-7.7) k/uL Lymphocytes # 2.5 (1.0-4.8) k/uL Monocytes # 0.8 (0-1.0) k/uL Eosinophils # 0.5 (0-0.7) k/uL Basophils # 0.0 (0-0.2) k/uL Hypochromasia Marked Poikilocytosis Slight PT 11.3 (9.0-12.0) sec INR 1.1 (<1.2) APTT 22.6 (22.0-30.0) sec D-Dimer 1.52 H (<0.60) mg/L FEU Sodium 132 L (137-145) mmol/L Potassium 3.6 (3.5-5.1) mmol/L Chloride 97 L (98-107) mmol/L Carbon Dioxide 28 (22-30) mmol/L Anion Gap 7 mmol/L BUN 12 (7-17) mg/dL Creatinine 0.61 (0.52-1.04) mg/dL Est GFR (CKD-EPI)AfAm >90 (>60 ml/min/1.73 sqM) Est GFR (CKD-EPI)NonAf 88 (>60 ml/min/1.73 sqM) Glucose 134 H (74-99) mg/dL Plasma Lactic Acid Cuco (0.7-2.0) mmol/L Calcium 9.0 (8.4-10.2) mg/dL Magnesium 1.5 L (1.6-2.3) mg/dL Total Bilirubin 0.5 (0.2-1.3) mg/dL AST 35 (14-36) U/L ALT 25 (4-34) U/L Alkaline Phosphatase 51 (38-126) U/L Troponin I (0.000-0.034) ng/mL NT-Pro-B Natriuret Pep pg/mL Total Protein 6.4 (6.3-8.2) g/dL Albumin 3.3 L (3.5-5.0) g/dL 05/02/23 05/02/23 05/02/23 Range/Units 11:40 11:40 11:40 WBC (3.8-10.6) k/uL RBC (3.80-5.40) m/uL Hgb (11.4-16.0) gm/dL Hct (34.0-46.0) % MCV (80.0-100.0) fL MCH (25.0-35.0) pg MCHC (31.0-37.0) g/dL RDW (11.5-15.5) % Plt Count (150-450) k/uL MPV Neutrophils % % Lymphocytes % % Monocytes % % Eosinophils % % Basophils % % Neutrophils # (1.3-7.7) k/uL Lymphocytes # (1.0-4.8) k/uL Monocytes # (0-1.0) k/uL Eosinophils # (0-0.7) k/uL Basophils # (0-0.2) k/uL Hypochromasia Poikilocytosis PT (9.0-12.0) sec INR (<1.2) APTT (22.0-30.0) sec D-Dimer (<0.60) mg/L FEU Sodium (137-145) mmol/L Potassium (3.5-5.1) mmol/L Chloride (98-107) mmol/L Carbon Dioxide (22-30) mmol/L Anion Gap mmol/L BUN (7-17) mg/dL Creatinine (0.52-1.04) mg/dL Est GFR (CKD-EPI)AfAm (>60 ml/min/1.73 sqM) Est GFR (CKD-EPI)NonAf (>60 ml/min/1.73 sqM) Glucose (74-99) mg/dL Plasma Lactic Acid Cuco 1.8 (0.7-2.0) mmol/L Calcium (8.4-10.2) mg/dL Magnesium (1.6-2.3) mg/dL Total Bilirubin (0.2-1.3) mg/dL AST (14-36) U/L ALT (4-34) U/L Alkaline Phosphatase (38-126) U/L Troponin I <0.012 (0.000-0.034) ng/mL NT-Pro-B Natriuret Pep 1440 pg/mL Total Protein (6.3-8.2) g/dL Albumin (3.5-5.0) g/dL Disposition Clinical Impression: Asthma exacerbation Disposition: HOME SELF-CARE Instructions (If sedation given, give patient instructions): Asthma (ED) Additional Instructions: Patient is to take 40 mg of prednisone until she follows up with her primary medical care doctor. Patient is also to use her nebulizer at home at least twice a day Is patient prescribed a controlled substance at d/c from ED?: No Referrals: Magnus Pearson MD [Primary Care Provider] - 1-2 days Time of Disposition: 15:15
[2023-05-02 12:15] LABS: Basophils % (A) 0 %; Eosinophils # (A) 0.5 k/uL (0-0.7); Eosinophils % (A) 4 %; HCT 28.7 % (34.0-46.0); HGB 8.6 gm/dL (11.4-16.0); Hypochromasia Marked; Lymphocytes # (A) 2.5 k/uL (1.0-4.8); Lymphocytes % (A) 21 %; MCH 23.6 pg (25.0-35.0); MCV 78.6 fL (80.0-100.0); Mean Platelet Volume 7.5; Monocytes # (A) 0.8 k/uL (0-1.0); Monocytes % (A) 6 %; Neutrophils # (A) 8.1 k/uL (1.3-7.7); Neutrophils % (A) 67 %; Platelet Count 434 k/uL (150-450); Poikilocytosis Slight; RBC 3.65 m/uL (3.80-5.40); RDW 15.5 % (11.5-15.5); WBC 12.1 k/uL (3.8-10.6)
[2023-05-02 12:17] LABS: ALT 25 U/L (4-34); AST 35 U/L (14-36); African American GFR (CKD) >90 (>60 ml/min/1.73 sqM); Albumin 3.3 g/dL (3.5-5.0); Alkaline Phosphatase 51 U/L (38-126); Anion Gap 7 mmol/L; Blood Urea Nitrogen 12 mg/dL (7-17); Carbon Dioxide 28 mmol/L (22-30); Chloride 97 mmol/L (98-107); Glucose 134 mg/dL (74-99); Magnesium 1.5 mg/dL (1.6-2.3); Non-African American GFR(CKD) 88 (>60 ml/min/1.73 sqM); Potassium 3.6 mmol/L (3.5-5.1); Sodium 132 mmol/L (137-145); Total Bilirubin 0.5 mg/dL (0.2-1.3); Total Protein 6.4 g/dL (6.3-8.2)
--- NOTE | 2023-05-02 12:18 | XR ---
EXAMINATION TYPE: XR chest 2V DATE OF EXAM: 05/02/2023 COMPARISON: 04/24/2023 HISTORY: 78 year-old female shortness of breath, difficulty breathing TECHNIQUE: AP and lateral views FINDINGS: Median sternotomy wires are present with post-CABG clips. Annuloplasty ring also noted. Heart borderl ine enlarged. Interstitial prominence. No consolidation or pleural effusion. Prior right shoulder rot ator cuff repair. IMPRESSION: Borderline heart size with interstitial prominence. Correlate for mild pulmonary vascular congestion.
[2023-05-02 12:21] LABS: INR 1.1 (<1.2); Partial Thromboplastin Time 22.6 sec (22.0-30.0); Prothrombin Time 11.3 sec (9.0-12.0)
--- NOTE | 2023-05-02 15:01 | CT ---
EXAMINATION TYPE: CT chest angio for PE DATE OF EXAM: 05/02/2023 COMPARISON: 07/19/2022 HISTORY: 78 year-old female shortness of breath Elevated d-dimer, shortness of breath. History of rec ent open heart surgery 03.02.23. TECHNIQUE: Contiguous axial scanning of the chest performed with IV Contrast, patient injected with 61ml mL of Isovue 300. Coronal/sagittal MIP reconstructions performed. CT DLP: 379.4 mGycm Automated exposure control for dose reduction was used. FINDINGS: Heart mildly enlarged. No flattening of the interventricular septum or significant reflux of contrast into the hepatic veins. There are post CABG changes as well as mitral annuloplasty ring. Aorta normal caliber with a conventional vessel branching anatomy. Patient's incompletely healed median sternotomy is demonstrated. There is some soft tissue stranding overlying and also deep to the sternotomy wires. No thoracic lymphadenopathy. Satisfactory opacification of the pulmonary arterial system with breathing motion causing some limita tion in assessment. No definite pulmonary embolus is seen. Lungs show scattered septal lines upper lungs and lower lungs. Some bands of atelectasis also present especially left mid and lower lung. No consolidation or pleural effusion. Marked hepatic steatosis. Small calcified granulomas within the spleen. Additional calcified granulom a periphery of the left lower lobe. Bones: Moderate to advanced spondylotic change throughout the thoracic spine with eccentric kyphosis. Again, prominent unhealed sternotomy and wires with some mild adjacent soft tissue thickening. IMPRESSION: No evidence for pulmonary embolus. 1. PROMINENT UNHEALED MEDIAN STERNOTOMY WITH WIRE FIXATION. MILD SOFT TISSUE THICKENING IS PRESENT NICOLE TH DEEP AND SUPERFICIAL TO THE STERNOTOMY. CORRELATE TO IF THIS AMOUNT OF INFLAMMATION SHOULD BE S EEN 2 MONTHS AFTER SURGERY. Or early infection of the sternotomy site should be excluded. 2. Mild cardiomegaly. Scattered septal lines in the lungs may reflect mild pulmonary vascular congest ion. 3. Moderate to severe hepatic steatosis. Evidence of prior granulomatous disease.
[2023-05-02 15:49] VITALS: BP 111/61; PULSE 70; RESP 18; TEMP 98.1
== END 2023-05-02 15:55 | disposition home or self-care (01) ==
LOC: EC 11:04
DX: J45.901 Unspecified asthma with (acute) exacerbation (principal); I42.9 Cardiomyopathy, unspecified; K76.0 Fatty (change of) liver, not elsewhere classified; J45.909 Unspecified asthma, uncomplicated; I25.10 Atherosclerotic heart disease of native coronary artery without angina pectoris; E11.9 Type 2 diabetes mellitus without complications; E78.5 Hyperlipidemia, unspecified; M19.90 Unspecified osteoarthritis, unspecified site; Z79.1 Long term (current) use of non-steroidal anti-inflammatories (NSAID); Z79.899 Other long term (current) drug therapy; Z88.8 Allergy status to other drugs, medicaments and biological substances; Z88.2 Allergy status to sulfonamides; Z88.1 Allergy status to other antibiotic agents; Z87.891 Personal history of nicotine dependence; Z86.16 Personal history of COVID-19
CPT/HCPCS: 36415; 85379; 83880; 80053; 83605; 83735; 84484; 85025; 85610; 85730; 71046; 71275; 99285; 96365; J0690; Q9967

== ENCOUNTER 2023-05-13 10:59 | Emergency (ER) | payer MEDICARE, MEDICAID ==
[2023-05-13 11:15] VITALS: TEMP 97
--- NOTE | 2023-05-13 12:33 | ED ---
SOB HPI - General Source: patient, RN notes reviewed Mode of arrival: EMS Limitations: no limitations - History of Present Illness MD Complaint: shortness of breath <Paloma Pinedo - Last Filed: 05/13/23 12:31> - History of Present Illness MD Complaint: shortness of breath, cough Consistency: intermittent, now resolved Improves With: rest Worsens With: exertion, movement, coughing, inspiration Known History Of: COPD, congestive heart failure Context: recent URI, recent illness Associated Symptoms: denies other symptoms <Zuhair Arreaga - Last Filed: 05/20/23 20:48> - General Chief Complaint: Shortness of Breath Stated Complaint: FLORENCIO Time Seen by Provider: 05/13/23 12:31 - History of Present Illness Initial Comments: This is a 78-year-old female who presents to the emergency department for shortness of breath. Reports shortness of breath with associated dizziness, both occurring intermittently. She was evaluated here 11 days ago and discharge d with a diagnosis of asthma exacerbation and started on prednisone with an albuterol inhaler. (Paloma Pinedo) This is a 78-year-old female to the emergency department for evaluation of shortness of breath exertional dyspnea. Patient does admit to some anxiety here without help from her inhaler and shortness of breath. Patient has no chest pain no fevers no travel history no sick contacts no other complaints (Zuhair Arreaga) - Related Data Home Medications Medication Instructions Recorded Confirmed Rosuvastatin Calcium [Crestor] 5 mg PO DAILY 07/16/14 05/13/23 Solifenacin Succinate [Vesicare] 10 mg PO HS 07/16/14 05/13/23 Latanoprost Ophth [Xalatan 0.005%] 1 drop BOTH EYES HS 08/17/17 05/13/23 Carboxymethylcellulose Sodium 1 drop BOTH EYES TID PRN 11/16/22 05/13/23 [Refresh Tears] Multivit with Calcium,Iron,Min 1 tab PO DAILY 11/16/22 05/13/23 [Women's Multivitamin] Ascorbic Acid [Vitamin C] 500 mg PO DAILY 12/03/22 05/13/23 Sennosides-Docusate Sodium 2 tab PO HS PRN 03/15/23 05/13/23 [Senokot-S] predniSONE 10 mg PO DAILY 03/15/23 05/13/23 Albuterol Nebulized [Ventolin 2.5 mg INHALATION RT-QID 05/13/23 05/13/23 Nebulized] Aspirin EC [Ecotrin Low Dose] 81 mg PO DAILY 05/13/23 05/13/23 ceFAZolin SODIUM [Cefazolin Sodium] 2 gm IV Q8HR 05/13/23 05/13/23 Previous Rx's Medication Instructions Recorded Albuterol Inhaler [Ventolin Hfa 2 puff INHALATION RT-QID PRN each 01/16/23 Inhaler] Acetaminophen [Tylenol Extra 500 mg PO Q4HR PRN #0 03/11/23 Strength] Losartan [Cozaar] 50 mg PO DAILY #30 tab 03/11/23 Pantoprazole [Protonix] 40 mg PO AC-BRKFST #30 tab 03/11/23 Spironolactone [Aldactone] 25 mg PO DAILY #30 tab 03/11/23 metFORMIN HCL [Glucophage] 500 mg PO BID #60 tab 03/11/23 Apixaban [Eliquis] 5 mg PO BID #60 tab 03/16/23 Metoprolol Tartrate [Lopressor] 100 mg PO BID 30 Days #60 tab 03/17/23 Furosemide [Lasix] 20 mg PO DAILY tab 04/06/23 Mag Hydrox/Al Hydrox/Simeth 30 ml PO Q4HR PRN ml 04/06/23 [Maalox] Allergies Allergy/AdvReac Type Severity Reaction Status Date / Time Sulfa (Sulfonamide Allergy Rash/Hives Verified 05/13/23 14:52 Antibiotics) azithromycin [From Zithromax] AdvReac intercts Verified 05/13/23 14:52 w/Digoxin benzonatate AdvReac Gerd Verified 05/13/23 14:52 budesonide AdvReac Wheezing Verified 05/13/23 14:52 dexamethasone AdvReac Gerd Verified 05/13/23 14:52 doxycycline AdvReac Gerd Verified 05/13/23 14:52 fluticasone AdvReac Rapid Verified 05/13/23 14:52 Heart Rate, dizziness formoterol AdvReac Wheezing, Verified 05/13/23 14:52 [From Source MDx] Dizziness, Rapid Heart Rate, High BP glycopyrrolate AdvReac Wheezing, Verified 05/13/23 14:52 [From Breztri Aerosphere] Dizziness, Rapid Heart Rate, High BP ipratropium AdvReac Rapid Verified 05/13/23 14:52 Heart Rate levalbuterol [From Xopenex] AdvReac Wheezing, Verified 05/13/23 14:52 Dizziness pravastatin sodium AdvReac Swelling Verified 05/13/23 14:52 [From Pravachol] and pain in legs prednisone AdvReac causes Verified 05/13/23 14:52 thrush ranitidine AdvReac Nausea & Verified 05/13/23 14:52 Vomiting & Diarrhea Review of Systems ROS Other: All systems not noted in ROS Statement are negative. <Paloma Pinedo - Last Filed: 05/13/23 12:31> ROS Other: All systems not noted in ROS Statement are negative. <Zuhair Arreaga - Last Filed: 05/20/23 20:48> ROS Statement: Those systems with pertinent positive or pertinent negative responses have been documented in the HPI. Past Medical History Past Medical History: Asthma, Coronary Artery Disease (CAD), Diabetes Mellitus, Deep Vein Thrombosis (DVT), GERD/Reflux, Hyperlipidemia, Osteoarthritis (OA) Additional Past Medical History / Comment(s): cardiomyopathy, elevated heart rate, overactive bladder, glaucoma, hx elevated sed rate,lelo knee pain-arthritis and [place] cyst, covid in 09/2022; left lower extremity DVT 02/2023 History of Any Multi-Drug Resistant Organisms: None Reported Past Surgical History: Appendectomy, Section, Coronary Bypass/CABG, Hysterectomy, Orthopedic Surgery Additional Past Surgical History / Comment(s): 3 left breast biopsies, 3 needle loc on right breast- pt states all benign. lelo rotator cuff repair, lelo. hammer toe and bunionectomy, trigger finger release lelo ring fingers, meniscus repair lelo knees, carpal tunnel lelo, rt thumb fusion, lt ankle surgery, D&C, bilateral cataract surgery and laser surgery, COLONOSCOPY , EGD WITH BIOPSY; 2 vessel cabg w/ mitral repair 03/02/23 Past Anesthesia/Blood Transfusion Reactions: No Reported Reaction Additional Past Anesthesia/Blood Transfusion Reaction / Comment(s): slow to wake up from anesthesia. Past Psychological History: No Psychological Hx Reported Smoking Status: Former smoker Past Alcohol Use History: None Reported Past Drug Use History: None Reported - Past Family History Mother History Unknown: Yes Family Medical History: Congestive Heart Failure (CHF), CVA/TIA, Hypertension Son(s) History Unknown: Yes Family Medical History: Deep Vein Thrombosis (DVT) Additional Family Medical History / Comment(s): DVT IN LEG Father Family Medical History: Congestive Heart Failure (CHF), Hypertension <Paloma Pinedo - Last Filed: 05/13/23 12:31> General Exam Limitations: no limitations <Paloma Pinedo - Last Filed: 05/13/23 12:31> General appearance: alert, in no apparent distress Head exam: Present: atraumatic, normocephalic, normal inspection Eye exam: Present: normal appearance, PERRL, EOMI. Absent: scleral icterus, conjunctival injection, periorbital swelling ENT exam: Present: normal exam, mucous membranes moist Neck exam: Present: normal inspection. Absent: tenderness, meningismus, lymphadenopathy Respiratory exam: Present: normal lung sounds bilaterally. Absent: respiratory distress, wheezes, rales, rhonchi, stridor Cardiovascular Exam: Present: regular rate, normal rhythm, normal heart sounds. Absent: systolic murmur, diastolic murmur, rubs, gallop, clicks GI/Abdominal exam: Present: soft, normal bowel sounds. Absent: distended, tenderness, guarding, rebound, rigid Extremities exam: Present: normal inspection, full ROM, normal capillary refill. Absent: tenderness, pedal edema, joint swelling, calf tenderness Back exam: Present: normal inspection Neurological exam: Present: alert, oriented X3, CN II-XII intact Psychiatric exam: Present: normal affect, normal mood Skin exam: Present: warm, dry, intact, normal color. Absent: rash <Zuhair Arreaga - Last Filed: 05/20/23 20:48> - General Exam Comments Initial Comments: Visual Physical Exam Vital signs reviewed General: Well-appearing, nontoxic, no acute distress. Head: Normocephalic, atraumatic Eyes: PERRLA, EOMI ENT: Airway patent Chest: Nonlabored breathing Skin: No visual rash, normal skin tone Neuro: Alert and oriented 3 Musculoskeletal: No gross abnormalities (Paloma Pinedo) Course <Zuhair Arreaga - Last Filed: 05/20/23 20:48> Vital Signs 05/13/23 05/13/23 05/13/23 11:12 12:46 12:58 Temperature 97 F L Pulse Rate 88 87 Respiratory 16 18 Rate Blood Pressure 118/74 121/80 O2 Sat by Pulse 100 100 Oximetry 05/13/23 05/13/23 05/13/23 13:22 13:32 14:45 Temperature Pulse Rate 86 90 86 Respiratory 18 Rate Blood Pressure 112/61 O2 Sat by Pulse 99 Oximetry - Reevaluation(s) Reevaluation #1: 05/13/23 23:18 Medical record is reviewed for (Zuhair Arreaga) Reevaluation #2: 05/13/23 23:18 Patient symptoms are improved here in the ER fine when she is resting (Zuhair Arreaga) Reevaluation #3: 05/13/23 23:18 Patient informed results questions answered (Zuhair Arreaga) Reevaluation #4: 05/13/23 23:18 Was pt. sent in by a medical professional or institution? @ -no Did you speak to anyone other than the patient for history? @ -no Did you review nursing and triage notes? @ -agree Were old charts reviewed? @ -no Differential Diagnosis? @ -prior EKG interpreted by me (3pts min.)? @ -yes X-rays interpreted by me (1pt min.)? @ -yes CT interpreted by me (1pt min.)? @ -no U/S interpreted by me (1pt. min.)? @ -no What testing was considered but not performed? (CT, X-rays, U/S, labs)? Why? @ -no What meds were considered but not given? Why? @ -no Did you discuss the management of the patient with other professionals? @ -no Did you reconcile home meds? @ -no Was smoking cessation discussed for >3mins.? @ -no Was critical care preformed (if so, how long)? @ -no Were there social determinants of health that impacted care today? How? (Homelessness, low income, unemployed, alcoholism, drug addiction, transportation, low edu. Level, literacy, decrease access to med. care, nursing home, rehab)? @ -no Was there de-escalation of care discussed even if they declined? (Discuss DNR or withdrawal of care, Hospice)? @ -no What co-morbidities impacted this encounter? (DM, HTN, Smoking, COPD, CAD, Cancer, CVA, Hep., AIDS, mental health diagnosis, sleep apnea, morbid obesity)? @ -none Was patient admitted / discharged? @ -78 female well-known this is the emergency department for shortness of breath. Patient no distress feels well she is just concerned for increasing exertional dyspnea at home Discharge Undiagnosed new problem with uncertain prognosis? @ -no Drug Therapy requiring intensive monitoring for toxicity (Heparin, Nitro, Insulin, Cardizem)? @ -no Were any procedures done? @ -no Diagnosis/symptom? @ -78 female well-known this is the emergency department for shortness of breath. Patient no distress feels well she is just concerned for increasing exertional dyspnea at home Discharge Acute, or Chronic, or Acute on Chronic? @ -no Uncomplicated (without systemic symptoms) or Complicated (systemic symptoms)? @ -uncomplicated Side effects of treatment? @ -no Exacerbation, Progression, or Severe Exacerbation] @ -no Poses a threat to life or bodily function? @ -no (Zuhair Arreaga) Reevaluation #5: 05/13/23 23:18 Differential Dyspnea: Coronary syndrome, arrhythmia, tamponade, asthma, COPD, pulmonary embolism, pneu monia, pneumothorax, pulmonary effusion, anaphylaxis, diabetic ketoacidosis, flailed chest, pulmonary contusion, diaphragmatic rupture, anemia, neuromuscular, this is not meant to be an all-inclusive list. (Zuhair Arreaga) Medical Decision Making - Lab Data Result diagrams: 05/13/23 12:55 05/13/23 12:55 - EKG Data -: EKG Interpreted by Me (EKG is sinus 87 ND 197 QRS 180 QTC 424) - Radiology Data Radiology results: report reviewed (Chest x-rays negative for acute disease), image reviewed <Zuhair Arreaga - Last Filed: 05/20/23 20:48> - Medical Decision Making 78 female well-known this is the emergency department for shortness of breath. Patient no distress feels well she is just concerned for increasing exertional dyspnea at home (Zuhair Arreaga) - Lab Data Lab Results 05/13/23 05/13/23 05/13/23 Range/Units 12:55 12:55 12:55 WBC 10.0 (3.8-10.6) k/uL RBC 3.53 L (3.80-5.40) m/uL Hgb 8.2 L (11.4-16.0) gm/dL Hct 26.8 L (34.0-46.0) % MCV 76.0 L (80.0-100.0) fL MCH 23.1 L (25.0-35.0) pg MCHC 30.5 L (31.0-37.0) g/dL RDW 16.1 H (11.5-15.5) % Plt Count 461 H (150-450) k/uL MPV 7.0 Neutrophils % 58 % Lymphocytes % 33 % Monocytes % 5 % Eosinophils % 1 % Basophils % 0 % Neutrophils # 5.8 (1.3-7.7) k/uL Lymphocytes # 3.3 (1.0-4.8) k/uL Monocytes # 0.6 (0-1.0) k/uL Eosinophils # 0.1 (0-0.7) k/uL Basophils # 0.0 (0-0.2) k/uL Hypochromasia Marked Poikilocytosis Slight Anisocytosis Slight Microcytosis Slight PT 11.6 (9.0-12.0) sec INR 1.1 (<1.2) APTT 21.6 L (22.0-30.0) sec D-Dimer 0.86 H (<0.60) mg/L FEU Sodium 135 L (137-145) mmol/L Potassium 3.7 (3.5-5.1) mmol/L Chloride 99 (98-107) mmol/L Carbon Dioxide 28 (22-30) mmol/L Anion Gap 8 mmol/L BUN 18 H (7-17) mg/dL Creatinine 0.65 (0.52-1.04) mg/dL Est GFR (CKD-EPI)AfAm >90 (>60 ml/min/1.73 sqM) Est GFR (CKD-EPI)NonAf 87 (>60 ml/min/1.73 sqM) Glucose 104 H (74-99) mg/dL Plasma Lactic Acid Cuco (0.7-2.0) mmol/L Calcium 9.0 (8.4-10.2) mg/dL Phosphorus 3.5 (2.5-4.5) mg/dL Magnesium 1.4 L (1.6-2.3) mg/dL Total Bilirubin 0.3 (0.2-1.3) mg/dL AST 44 H (14-36) U/L ALT 37 H (4-34) U/L Alkaline Phosphatase 54 (38-126) U/L Troponin I (0.000-0.034) ng/mL NT-Pro-B Natriuret Pep pg/mL Total Protein 6.6 (6.3-8.2) g/dL Albumin 3.6 (3.5-5.0) g/dL Influenza Type A (PCR) (Not Detectd) Influenza Type B (PCR) (Not Detectd) RSV (PCR) (Not Detectd) SARS-CoV-2 (PCR) (Not Detectd) 05/13/23 05/13/23 05/13/23 Range/Units 12:55 12:55 12:55 WBC (3.8-10.6) k/uL RBC (3.80-5.40) m/uL Hgb (11.4-16.0) gm/dL Hct (34.0-46.0) % MCV (80.0-100.0) fL MCH (25.0-35.0) pg MCHC (31.0-37.0) g/dL RDW (11.5-15.5) % Plt Count (150-450) k/uL MPV Neutrophils % % Lymphocytes % % Monocytes % % Eosinophils % % Basophils % % Neutrophils # (1.3-7.7) k/uL Lymphocytes # (1.0-4.8) k/uL Monocytes # (0-1.0) k/uL Eosinophils # (0-0.7) k/uL Basophils # (0-0.2) k/uL Hypochromasia Poikilocytosis Anisocytosis Microcytosis PT (9.0-12.0) sec INR (<1.2) APTT (22.0-30.0) sec D-Dimer (<0.60) mg/L FEU Sodium (137-145) mmol/L Potassium (3.5-5.1) mmol/L Chloride (98-107) mmol/L Carbon Dioxide (22-30) mmol/L Anion Gap mmol/L BUN (7-17) mg/dL Creatinine (0.52-1.04) mg/dL Est GFR (CKD-EPI)AfAm (>60 ml/min/1.73 sqM) Est GFR (CKD-EPI)NonAf (>60 ml/min/1.73 sqM) Glucose (74-99) mg/dL Plasma Lactic Acid Cuco 1.7 (0.7-2.0) mmol/L Calcium (8.4-10.2) mg/dL Phosphorus (2.5-4.5) mg/dL Magnesium (1.6-2.3) mg/dL Total Bilirubin (0.2-1.3) mg/dL AST (14-36) U/L ALT (4-34) U/L Alkaline Phosphatase (38-126) U/L Troponin I <0.012 (0.000-0.034) ng/mL NT-Pro-B Natriuret Pep 1630 pg/mL Total Protein (6.3-8.2) g/dL Albumin (3.5-5.0) g/dL Influenza Type A (PCR) (Not Detectd) Influenza Type B (PCR) (Not Detectd) RSV (PCR) (Not Detectd) SARS-CoV-2 (PCR) (Not Detectd) 05/13/23 Range/Units 12:55 WBC (3.8-10.6) k/uL RBC (3.80-5.40) m/uL Hgb (11.4-16.0) gm/dL Hct (34.0-46.0) % MCV (80.0-100.0) fL MCH (25.0-35.0) pg MCHC (31.0-37.0) g/dL RDW (11.5-15.5) % Plt Count (150-450) k/uL MPV Neutrophils % % Lymphocytes % % Monocytes % % Eosinophils % % Basophils % % Neutrophils # (1.3-7.7) k/uL Lymphocytes # (1.0-4.8) k/uL Monocytes # (0-1.0) k/uL Eosinophils # (0-0.7) k/uL Basophils # (0-0.2) k/uL Hypochromasia Poikilocytosis Anisocytosis Microcytosis PT (9.0-12.0) sec INR (<1.2) APTT (22.0-30.0) sec D-Dimer (<0.60) mg/L FEU Sodium (137-145) mmol/L Potassium (3.5-5.1) mmol/L Chloride (98-107) mmol/L Carbon Dioxide (22-30) mmol/L Anion Gap mmol/L BUN (7-17) mg/dL Creatinine (0.52-1.04) mg/dL Est GFR (CKD-EPI)AfAm (>60 ml/min/1.73 sqM) Est GFR (CKD-EPI)NonAf (>60 ml/min/1.73 sqM) Glucose (74-99) mg/dL Plasma Lactic Acid Cuco (0.7-2.0) mmol/L Calcium (8.4-10.2) mg/dL Phosphorus (2.5-4.5) mg/dL Magnesium (1.6-2.3) mg/dL Total Bilirubin (0.2-1.3) mg/dL AST (14-36) U/L ALT (4-34) U/L Alkaline Phosphatase (38-126) U/L Troponin I (0.000-0.034) ng/mL NT-Pro-B Natriuret Pep pg/mL Total Protein (6.3-8.2) g/dL Albumin (3.5-5.0) g/dL Influenza Type A (PCR) Not Detected (Not Detectd) Influenza Type B (PCR) Not Detected (Not Detectd) RSV (PCR) Not Detected (Not Detectd) SARS-CoV-2 (PCR) Not Detected (Not Detectd) Disposition <Paloma Pinedo - Last Filed: 05/13/23 12:31> Is patient prescribed a controlled substance at d/c from ED?: No Time of Disposition: 14:20 <Zuhair Arreaga - Last Filed: 05/20/23 20:48> Clinical Impression: Shortness of breath Disposition: HOME SELF-CARE Instructions (If sedation given, give patient instructions): Shortness of Breat h (ED) Referrals: [facility] [NON-STAFF] - (Contact regarding services for cardiac rehab. ) Delmar Cancino DO [Primary Care Provider] - 1-2 days
--- NOTE | 2023-05-13 12:43 | XR ---
EXAMINATION TYPE: XR chest 2V DATE OF EXAM: 05/13/2023 COMPARISON: 05/02/2023 INDICATION: Difficulty breathing and shortness of breath disease TECHNIQUE: Frontal and lateral views of the chest are obtained. FINDINGS: The heart size is mildly prominent. Sternotomy wires are present from prior cardiac valve surgery. Le ft-sided PICC line is present with the tip in the superior vena cava region.. The pulmonary vasculature is normal. The lungs are clear. IMPRESSION: 1. Mild cardiomegaly. 2. Left PICC line tip in superior vena cava region
[2023-05-13] MEDS ORDERED: IPRATROPIUM-ALBUTEROL 3 ML NEB INHALATION STA (12:49)
[2023-05-13 12:54] VITALS: RESP 18
[2023-05-13 13:26] LABS: Anisocytosis Slight; Basophils % (A) 0 %; Eosinophils # (A) 0.1 k/uL (0-0.7); Eosinophils % (A) 1 %; HCT 26.8 % (34.0-46.0); HGB 8.2 gm/dL (11.4-16.0); Hypochromasia Marked; Lymphocytes # (A) 3.3 k/uL (1.0-4.8); Lymphocytes % (A) 33 %; MCH 23.1 pg (25.0-35.0); MCHC 30.5 g/dL (31.0-37.0); Microcytosis Slight; Monocytes # (A) 0.6 k/uL (0-1.0); Monocytes % (A) 5 %; Neutrophils # (A) 5.8 k/uL (1.3-7.7); Neutrophils % (A) 58 %; Platelet Count 461 k/uL (150-450); Poikilocytosis Slight; RBC 3.53 m/uL (3.80-5.40); RDW 16.1 % (11.5-15.5)
[2023-05-13 13:37] LABS: ALT 37 U/L (4-34); AST 44 U/L (14-36); African American GFR (CKD) >90 (>60 ml/min/1.73 sqM); Albumin 3.6 g/dL (3.5-5.0); Alkaline Phosphatase 54 U/L (38-126); Anion Gap 8 mmol/L; Blood Urea Nitrogen 18 mg/dL (7-17); Carbon Dioxide 28 mmol/L (22-30); Chloride 99 mmol/L (98-107); Glucose 104 mg/dL (74-99); Magnesium 1.4 mg/dL (1.6-2.3); Non-African American GFR(CKD) 87 (>60 ml/min/1.73 sqM); Phosphorus 3.5 mg/dL (2.5-4.5); Potassium 3.7 mmol/L (3.5-5.1); Sodium 135 mmol/L (137-145); Total Bilirubin 0.3 mg/dL (0.2-1.3); Total Protein 6.6 g/dL (6.3-8.2)
[2023-05-13 13:52] LABS: INR 1.1 (<1.2); Prothrombin Time 11.6 sec (9.0-12.0)
[2023-05-13 14:13] LABS: Partial Thromboplastin Time 21.6 sec (22.0-30.0)
[2023-05-13 14:45] VITALS: BP 112/61; PULSE 86
== END 2023-05-13 15:42 | disposition home or self-care (01) ==
LOC: EC 10:59
DX: R06.02 Shortness of breath (principal); J45.909 Unspecified asthma, uncomplicated; E11.9 Type 2 diabetes mellitus without complications; E78.5 Hyperlipidemia, unspecified; I25.10 Atherosclerotic heart disease of native coronary artery without angina pectoris; M19.90 Unspecified osteoarthritis, unspecified site; Z86.718 Personal history of other venous thrombosis and embolism; Z86.16 Personal history of COVID-19; Z87.891 Personal history of nicotine dependence; Z88.2 Allergy status to sulfonamides; Z88.1 Allergy status to other antibiotic agents; Z88.8 Allergy status to other drugs, medicaments and biological substances; Z79.899 Other long term (current) drug therapy; Z79.82 Long term (current) use of aspirin; Z20.822 Contact with and (suspected) exposure to COVID-19
CPT/HCPCS: 36415; 94640; 93005; 85379; 83880; 80053; 83605; 83735; 84100; 84484; 85025; 85610; 85730; 87636; 71046; 99285; 96365; J0690

== ENCOUNTER 2023-06-06 13:03 | Emergency (ER) | payer MEDICARE, MEDICAID ==
[2023-06-06 13:12] VITALS: TEMP 98.6
[2023-06-06 13:53] LABS: Anisocytosis Slight; Basophils % (A) 0 %; Eosinophils # (A) 0.3 k/uL (0-0.7); Eosinophils % (A) 2 %; HCT 31.3 % (34.0-46.0); HGB 8.9 gm/dL (11.4-16.0); Hypochromasia Marked; Lymphocytes # (A) 3.7 k/uL (1.0-4.8); Lymphocytes % (A) 26 %; MCH 21.9 pg (25.0-35.0); MCHC 28.5 g/dL (31.0-37.0); MCV 77.1 fL (80.0-100.0); Microcytosis Moderate; Monocytes # (A) 0.7 k/uL (0-1.0); Monocytes % (A) 5 %; Neutrophils # (A) 9.2 k/uL (1.3-7.7); Neutrophils % (A) 65 %; Platelet Count 477 k/uL (150-450); Poikilocytosis Slight; RBC 4.06 m/uL (3.80-5.40); RDW 19.4 % (11.5-15.5); WBC 14.1 k/uL (3.8-10.6)
--- NOTE | 2023-06-06 14:01 | ED ---
General Adult HPI - General Chief complaint: Chest Pain Stated complaint: Chest pain Time Seen by Provider: 06/06/23 13:16 Source: patient Mode of arrival: ambulatory Limitations: no limitations - History of Present Illness Initial comments: Dictation was produced using [employer] dictation software. please excuse any grammatical, word or spelling errors. Chief Complaint: 78-year-old male presents with sharp chest pain History of Present Illness: Is a 78-year-old female presents to the emergency department sharp chest pain. In February patient underwent coronary artery bypass grafting. She's been having sharp chest pain since the procedure. She has made all her follow-up appointments. She's been told on numerous occasions by car diothoracic pulmonology cardiology that her symptoms were improved. States that the pain as sharp. His been ongoing for several weeks. Does report mild exacerbation with deep inspiration and movement. States that her symptoms are mostly aggravated with positional changes. Nonradiating. No associated diaphoresis or nausea. No associated dyspnea The ROS documented in this emergency department record has been reviewed and confirmed by me. Those systems with pertinent positive or negative responses have been documented in the HPI. All other systems are other negative and/or noncontributory. - Related Data Home Medications Medication Instructions Recorded Confirmed Rosuvastatin Calcium [Crestor] 5 mg PO DAILY 07/16/14 05/13/23 Solifenacin Succinate [Vesicare] 10 mg PO HS 07/16/14 05/13/23 Latanoprost Ophth [Xalatan 0.005%] 1 drop BOTH EYES HS 08/17/17 05/13/23 Carboxymethylcellulose Sodium 1 drop BOTH EYES TID PRN 11/16/22 05/13/23 [Refresh Tears] Multivit with Calcium,Iron,Min 1 tab PO DAILY 11/16/22 05/13/23 [Women's Multivitamin] Ascorbic Acid [Vitamin C] 500 mg PO DAILY 12/03/22 05/13/23 Sennosides-Docusate Sodium 2 tab PO HS PRN 03/15/23 05/13/23 [Senokot-S] predniSONE 10 mg PO DAILY 03/15/23 05/13/23 Albuterol Nebulized [Ventolin 2.5 mg INHALATION RT-QID 05/13/23 05/13/23 Nebulized] Aspirin EC [Ecotrin Low Dose] 81 mg PO DAILY 05/13/23 05/13/23 ceFAZolin SODIUM [Cefazolin Sodium] 2 gm IV Q8HR 05/13/23 05/13/23 Previous Rx's Medication Instructions Recorded Albuterol Inhaler [Ventolin Hfa 2 puff INHALATION RT-QID PRN each 01/16/23 Inhaler] Acetaminophen [Tylenol Extra 500 mg PO Q4HR PRN #0 03/11/23 Strength] Losartan [Cozaar] 50 mg PO DAILY #30 tab 03/11/23 Pantoprazole [Protonix] 40 mg PO AC-BRKFST #30 tab 03/11/23 Spironolactone [Aldactone] 25 mg PO DAILY #30 tab 03/11/23 metFORMIN HCL [Glucophage] 500 mg PO BID #60 tab 03/11/23 Apixaban [Eliquis] 5 mg PO BID #60 tab 03/16/23 Metoprolol Tartrate [Lopressor] 100 mg PO BID 30 Days #60 tab 03/17/23 Furosemide [Lasix] 20 mg PO DAILY tab 04/06/23 Mag Hydrox/Al Hydrox/Simeth 30 ml PO Q4HR PRN ml 04/06/23 [Maalox] Allergies Allergy/AdvReac Type Severity Reaction Status Date / Time Sulfa (Sulfonamide Allergy Rash/Hives Verified 06/06/23 13:13 Antibiotics) azithromycin [From Zithromax] AdvReac intercts Verified 06/06/23 13:13 w/Digoxin benzonatate AdvReac Gerd Verified 06/06/23 13:13 budesonide AdvReac Wheezing Verified 06/06/23 13:13 dexamethasone AdvReac Gerd Verified 06/06/23 13:13 doxycycline AdvReac Gerd Verified 06/06/23 13:13 fluticasone AdvReac Rapid Verified 06/06/23 13:13 Heart Rate, dizziness formoterol AdvReac Wheezing, Verified 06/06/23 13:13 [From [employer]] Dizziness, Rapid Heart Rate, High BP glycopyrrolate AdvReac Wheezing, Verified 06/06/23 13:13 [From [employer]] Dizziness, Rapid Heart Rate, High BP ipratropium AdvReac Rapid Verified 06/06/23 13:13 Heart Rate levalbuterol [From Xopenex] AdvReac Wheezing, Verified 06/06/23 13:13 Dizziness pravastatin sodium AdvReac Swelling Verified 06/06/23 13:13 [From Pravachol] and pain in legs prednisone AdvReac causes Verified 06/06/23 13:13 thrush ranitidine AdvReac Nausea & Verified 06/06/23 13:13 Vomiting & Diarrhea Review of Systems ROS Statement: Those systems with pertinent positive or pertinent negative responses have been documented in the HPI. ROS Other: All systems not noted in ROS Statement are negative. Past Medical History Past Medical History: Asthma, Coronary Artery Disease (CAD), Diabetes Mellitus, Deep Vein Thrombosis (DVT), GERD/Reflux, Hyperlipidemia, Osteoarthritis (OA) Additional Past Medical History / Comment(s): cardiomyopathy, elevated heart rate, overactive bladder, glaucoma, hx elevated sed rate,lelo knee pain-arthritis and elmore cyst, covid in 09/2022; left lower extremity DVT 02/2023 History of Any Multi-Drug Resistant Organisms: None Reported Past Surgical History: Appendectomy, Section, Coronary Bypass/CABG, Hysterectomy, Orthopedic Surgery Additional Past Surgical History / Comment(s): 3 left breast biopsies, 3 needle loc on right breast- pt states all benign. lelo rotator cuff repair, lelo. hammer toe and bunionectomy, trigger finger release lelo ring fingers, meniscus repair lelo knees, carpal tunnel lelo, rt thumb fusion, lt ankle surgery, D&C, bilateral cataract surgery and laser surgery, COLONOSCOPY , EGD WITH BIOPSY; 2 vessel cabg w/ mitral repair 03/02/23 Past Anesthesia/Blood Transfusion Reactions: No Reported Reaction Additional Past Anesthesia/Blood Transfusion Reaction / Comment(s): slow to wake up from anesthesia. Past Psychological History: No Psychological Hx Reported Smoking Status: Former smoker Past Alcohol Use History: None Reported Past Drug Use History: None Reported - Past Family History Mother History Unknown: Yes Family Medical History: Congestive Heart Failure (CHF), CVA/TIA, Hypertension Son(s) History Unknown: Yes Family Medical History: Deep Vein Thrombosis (DVT) Additional Family Medical History / Comment(s): DVT IN LEG Father Family Medical History: Congestive Heart Failure (CHF), Hypertension General Exam - General Exam Comments Initial Comments: PHYSICAL EXAM: General Impression: Alert and oriented x3, not in acute distress HEENT: Normocephalic atraumatic, extra-ocular movements intact, pupils equal and reactive to light bilaterally, mucous membranes moist. Cardiovascular: Heart regular rate and rhythm Chest: Able to complete full sentences, no retractions, no tachypnea, mild palpatory tenderness to the superior portion of the surgical site, there does appear to be some hypertrophy of the underlying musculoskeletal tissue Abdomen: abdomen soft, non-tender, non-distended, no organomegaly Musculoskeletal: Pulses present and equal in all extremities, no peripheral edema Motor: no focal deficits noted Neurological: CN II-XII grossly intact, no focal motor or sensory deficits noted Skin: Intact with no visualized rashes Psych: Normal affect and mood Limitations: no limitations Course Vital Signs 06/06/23 06/06/23 06/06/23 13:09 13:27 13:30 Temperature 98.6 F Pulse Rate 92 95 Pulse Rate [ 997 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 182, QRS 114, QTc 412. No NM prolongation, no QTC prolongation, no ST or T-wave changes noted. EKG compared to 05/13/2023 showing no changes. Overall, this EKG is unremarkable Medical Decision Making - Medical Decision Making Was pt. sent in by a medical professional or institution (JAVIER Pope, HEADEND TECHNICIAN, urgent care, hospital, or retirement...) When possible be specific @ -[No] Did you speak to anyone other than the patient for history (EMS, parent, family, police, friend...)? What history was obtained from this source @ -[No] Did you review nursing and triage notes (agree or disagree)? Why? @ -[I reviewed and agree with nursing and triage notes] Were old charts reviewed (outside hosp., previous admission, EMS record, old EKG, old radiological studies, urgent care reports/EKG's, retirement records)? Report findings @ -Prior charts reviewed shows that patient had CABG on 03/02/2023 Differential Diagnosis (chest pain, altered mental status, abdominal pain women, abdominal pain men, vaginal bleeding, musculoskeletal, weakness, fever, dyspnea, syncope, headache, dizziness, GI bleed, back pain, seizure, CVA, palpatations, mental health)? @ -Differential Chest Pain: Stable Angina, Unstable Angina, STEMI, NSTEMI Aortic Dissection, Pneumothorax, Musculoskeletal, Esophageal Spasm GERD, Cholecystitis, Pancreatitis, Zoster, this is not meant to be an all-inclusive list. EKG interpreted by me (3pts min.). @ -See above X-rays interpreted by me (1pt min.). @ -Chest x-ray shows no acute processes CT interpreted by me (1pt min.). @ -[None done] U/S interpreted by me (1pt. min.). @ -[None done] What testing was considered but not performed or refused? (CT, X-rays, U/S, labs)? Why? @ -[None] What meds were considered but not given or refused? Why? @ -[None] Did you discuss the management of the patient with other professionals (professionals i.e. , PA, HEADEND TECHNICIAN, lab, RT, psych nurse, social media marketing analyst, lawyer criminal, teacher, learning officer, egg caser)? Give summary @ -[No] Was smoking cessation discussed for >3mins.? @ -[No] Was critical care preformed (if so, how long)? @ -[No] Were there social determinants of health that impacted care today? How? (Homelessness, low income, unemployed, alcoholism, drug addiction, transportation, low edu. Level, literacy, decrease access to med. care, retirement, rehab)? @ -[No] Was there de-escalation of care discussed even if they declined (Discuss DNR or withdrawal of care, Hospice)? DNR status @ -[No] What co-morbidities impacted this encounter? (DM, HTN, Smoking, COPD, CAD, Canc er, CVA, ARF, Chemo, Hep., AIDS, mental health diagnosis, sleep apnea, morbid obesity)? @ -[None] Was patient admitted / discharged? Hospital course, mention meds given and route, prescriptions, significant lab abnormalities, going to OR and other pertinent info. @ -78-year-old female presents emergency Department with musculoskeletal chest pain. Vital signs are stable. Laboratory evaluation obtained. CBC, coag panel metabolic panel within acceptable limits. She did have a mild hypomagnesemia. She is given oral magnesium. Her pain is related to recent surgery. She is told to follow-up with her cardiothoracic surgeon. Undiagnosed new problem with uncertain prognosis? @ -[No] Drug Therapy requiring intensive monitoring for toxicity (Heparin, Nitro, Insulin, Cardizem)? @ -[No] Were any procedures done? @ -[No] Diagnosis/symptom? Acute, or Chronic, or Acute on Chronic? Uncomplicated (without systemic symptoms) or Complicated (systemic symptoms)? @ -1. Chest pain Side effects of treatment? @ -[No] Exacerbation, Progression, or Severe Exacerbation? @ -[No] Poses a threat to life or bodily function? How? (Chest pain, [place], [place], pneumonia, PE, COPD, DKA, ARF, appy, cholecystitis, CVA, Diverticulitis, Homicidal, Suicidal, threat to staff... and all critical care pts) @ -[No] - Lab Data Result diagrams: 06/06/23 13:39 06/06/23 13:39 Lab Results 06/06/23 06/06/23 06/06/23 Range/Units 13:39 13:39 13:39 WBC 14.1 H (3.8-10.6) k/uL RBC 4.06 (3.80-5.40) m/uL Hgb 8.9 L (11.4-16.0) gm/dL Hct 31.3 L (34.0-46.0) % MCV 77.1 L (80.0-100.0) fL MCH 21.9 L (25.0-35.0) pg MCHC 28.5 L (31.0-37.0) g/dL RDW 19.4 H (11.5-15.5) % Plt Count 477 H (150-450) k/uL MPV 7.0 Neutrophils % 65 % Lymphocytes % 26 % Monocytes % 5 % Eosinophils % 2 % Basophils % 0 % Neutrophils # 9.2 H (1.3-7.7) k/uL Lymphocytes # 3.7 (1.0-4.8) k/uL Monocytes # 0.7 (0-1.0) k/uL Eosinophils # 0.3 (0-0.7) k/uL Basophils # 0.0 (0-0.2) k/uL Hypochromasia Marked Poikilocytosis Slight Anisocytosis Slight Microcytosis Moderate PT 10.9 (9.0-12.0) sec INR 1.0 (<1.2) APTT 24.2 (22.0-30.0) sec Sodium 134 L (137-145) mmol/L Potassium 4.9 (3.5-5.1) mmol/L Chloride 98 (98-107) mmol/L Carbon Dioxide 23 (22-30) mmol/L Anion Gap 13 mmol/L BUN 13 (7-17) mg/dL Creatinine 0.67 (0.52-1.04) mg/dL Est GFR (CKD-EPI)AfAm >90 (>60 ml/min/1.73 sqM) Est GFR (CKD-EPI)NonAf 86 (>60 ml/min/1.73 sqM) Glucose 123 H (74-99) mg/dL Calcium 9.3 (8.4-10.2) mg/dL Magnesium 1.5 L (1.6-2.3) mg/dL Total Bilirubin 0.4 (0.2-1.3) mg/dL AST 20 (14-36) U/L ALT 17 (4-34) U/L Alkaline Phosphatase 72 (38-126) U/L Troponin I (0.000-0.034) ng/mL Total Protein 6.5 (6.3-8.2) g/dL Albumin 3.5 (3.5-5.0) g/dL 06/06/23 Range/Units 13:39 WBC (3.8-10.6) k/uL RBC (3.80-5.40) m/uL Hgb (11.4-16.0) gm/dL Hct (34.0-46.0) % MCV (80.0-100.0) fL MCH (25.0-35.0) pg MCHC (31.0-37.0) g/dL RDW (11.5-15.5) % Plt Count (150-450) k/uL MPV Neutrophils % % Lymphocytes % % Monocytes % % Eosinophils % % Basophils % % Neutrophils # (1.3-7.7) k/uL Lymphocytes # (1.0-4.8) k/uL Monocytes # (0-1.0) k/uL Eosinophils # (0-0.7) k/uL Basophils # (0-0.2) k/uL Hypochromasia Poikilocytosis Anisocytosis Microcytosis PT (9.0-12.0) sec INR (<1.2) APTT (22.0-30.0) sec Sodium (137-145) mmol/L Potassium (3.5-5.1) mmol/L Chloride (98-107) mmol/L Carbon Dioxide (22-30) mmol/L Anion Gap mmol/L BUN (7-17) mg/dL Creatinine (0.52-1.04) mg/dL Est GFR (CKD-EPI)AfAm (>60 ml/min/1.73 sqM) Est GFR (CKD-EPI)NonAf (>60 ml/min/1.73 sqM) Glucose (74-99) mg/dL Calcium (8.4-10.2) mg/dL Magnesium (1.6-2.3) mg/dL Total Bilirubin (0.2-1.3) mg/dL AST (14-36) U/L ALT (4-34) U/L Alkaline Phosphatase (38-126) U/L Troponin I <0.012 (0.000-0.034) ng/mL Total Protein (6.3-8.2) g/dL Albumin (3.5-5.0) g/dL Disposition Clinical Impression: Chest pain Disposition: HOME SELF-CARE Condition: Good Instructions (If sedation given, give patient instructions): Chest Pain (ED) Is patient prescribed a controlled substance at d/c from ED?: No Referrals: Magnus Pearson MD [Primary Care Provider] - 1-2 days Time of Disposition: 14:54
[2023-06-06 14:07] LABS: ALT 17 U/L (4-34); AST 20 U/L (14-36); African American GFR (CKD) >90 (>60 ml/min/1.73 sqM); Albumin 3.5 g/dL (3.5-5.0); Alkaline Phosphatase 72 U/L (38-126); Anion Gap 13 mmol/L; Blood Urea Nitrogen 13 mg/dL (7-17); Calcium 9.3 mg/dL (8.4-10.2); Carbon Dioxide 23 mmol/L (22-30); Chloride 98 mmol/L (98-107); Glucose 123 mg/dL (74-99); Magnesium 1.5 mg/dL (1.6-2.3); Non-African American GFR(CKD) 86 (>60 ml/min/1.73 sqM); Potassium 4.9 mmol/L (3.5-5.1); Sodium 134 mmol/L (137-145); Total Bilirubin 0.4 mg/dL (0.2-1.3); Total Protein 6.5 g/dL (6.3-8.2)
[2023-06-06 14:11] LABS: Partial Thromboplastin Time 24.2 sec (22.0-30.0); Prothrombin Time 10.9 sec (9.0-12.0)
[2023-06-06] MEDS ORDERED: MAGNESIUM OXIDE 400 MG TAB PO STA (14:17)
--- NOTE | 2023-06-06 14:23 | XR ---
EXAMINATION TYPE: XR chest 2V DATE OF EXAM: 06/06/2023 COMPARISON: 05/13/2023 HISTORY: 78-year-old female with chest pain TECHNIQUE: PA and lateral views FINDINGS: Median sternotomy wires are present post CABG clips. Annuloplasty ring also present. Borderline heart size. Mild perihilar and interstitial prominence. Some strandy atelectasis left midlung. No garo co nsolidation or pleural effusion. IMPRESSION: Borderline cardiomegaly and interstitial changes. Correlate to exclude mild pulmonary vascular conges tion.
[2023-06-06 14:54] VITALS: PULSE 78
[2023-06-06 15:14] VITALS: BP 140/70; RESP 16
== END 2023-06-06 15:13 | disposition home or self-care (01) ==
LOC: EC 13:03
DX: R07.9 Chest pain, unspecified (principal); J45.909 Unspecified asthma, uncomplicated; E11.9 Type 2 diabetes mellitus without complications; E78.5 Hyperlipidemia, unspecified; I25.10 Atherosclerotic heart disease of native coronary artery without angina pectoris; K21.9 Gastro-esophageal reflux disease without esophagitis; M19.90 Unspecified osteoarthritis, unspecified site; Z79.01 Long term (current) use of anticoagulants; Z79.52 Long term (current) use of systemic steroids; Z79.82 Long term (current) use of aspirin; Z79.84 Long term (current) use of oral hypoglycemic drugs; Z79.899 Other long term (current) drug therapy; Z88.1 Allergy status to other antibiotic agents; Z88.2 Allergy status to sulfonamides; Z88.8 Allergy status to other drugs, medicaments and biological substances; Z86.16 Personal history of COVID-19; Z87.891 Personal history of nicotine dependence
CPT/HCPCS: 36415; 71046; 80053; 83735; 84484; 85025; 85610; 85730; 93005; 99285